=== PATIENT | female | born 1950 | race Caucasian/White ===

== ENCOUNTER → 2017-05-06 20:20 | Outpatient (CLI) | payer OTHER, SELFPAY | PROVIDERS: Family Provider Internal Medicine; PCP Internal Medicine; Visit Provider Internal Medicine | DX: G47.30 Sleep apnea, unspecified (principal); R06.89 Other abnormalities of breathing | CPT/HCPCS: 95810 ==

== ENCOUNTER → 2017-05-11 14:39 | Outpatient (CLI) | payer OTHER, SELFPAY ==
[2017-05-11] MEDS: DENOSUMAB 60 MG/ML ML SQ (14:52)
== END ==
PROVIDERS: Family Provider Internal Medicine; PCP Internal Medicine; Visit Provider Internal Medicine
DX: M81.0 Age-related osteoporosis without current pathological fracture (principal)
CPT/HCPCS: 96372

== ENCOUNTER → 2017-05-28 13:36 | Outpatient (CLI) | payer OTHER, SELFPAY ==
[2017-05-28 15:21] VITALS: BMI 26.0
== END ==
PROVIDERS: Family Provider Internal Medicine; PCP Internal Medicine; Visit Provider Internal Medicine
DX: G47.33 Obstructive sleep apnea (adult) (pediatric) (principal)
CPT/HCPCS: 98960; G0463

== ENCOUNTER → 2017-06-18 14:27 | Outpatient (CLI) | payer OTHER, SELFPAY | PROVIDERS: Family Provider Internal Medicine; PCP Internal Medicine; Visit Provider Internal Medicine | DX: Z46.89 Encounter for fitting and adjustment of other specified devices (principal) ==

== ENCOUNTER → 2017-06-22 17:30 | Outpatient (CLI) | payer OTHER, SELFPAY ==
[2017-05-28 15:21] VITALS: BMI 26.0
--- NOTE | 2017-06-22 16:37 | BI_ITS ---
MAMMOGRAPHY - BILATERAL SCREENING REASON FOR EXAM: Female, 66 years old. Routine annual screening examination. PERTINENT HISTORY: Non-contributory. TECHNIQUE: Digital bilateral breast lanette (3D mammographic acquisition) in the CC and MLO projections. 2-D mediolateral oblique (MLO) and craniocaudad (CC) views of both breasts were obtained. CAD: Full Field Digital Mammography with Computer Added Detection was performed. COMPARISON: Comparison is made with prior examination dated April 27, 2016 and March 20, 2015. FINDINGS: Breast Composition: The breasts are heterogeneously dense, which may obscure small masses. There are no dominant masses or suspicious calcifications. No other significant abnormalities are identified. There has been no significant change since the prior study. BI/SCREENING MAMM (CAD), BILAT IMPRESSION: Stable bilateral screening mammogram. Yearly follow-up mammogram recommended. (A) ASSESSMENT CATEGORY: BIRADS Category 1: Negative. A letter regarding these results will be sent to the patient by the facility within 30 days. Approximately 10% of breast cancers are not detected by mammography. A normal mammogram should not delay biopsy of a clinically suspicious abnormality. [id number] Electronically Signed: Win Vizcaino MD at 8:23 EDT Tel [phone], Service support ,
== END ==
PROVIDERS: Family Provider Internal Medicine; PCP Internal Medicine; Visit Provider Nurse Practitioner Women's Health
DX: Z12.31 Encounter for screening mammogram for malignant neoplasm of breast (principal)
CPT/HCPCS: 77063; 77067

== ENCOUNTER → 2017-06-29 08:26 | Outpatient (CLI) | payer OTHER, SELFPAY ==
[2017-05-28 15:21] VITALS: BMI 26.0
[2017-06-29 09:20] LABS: Absolute Lymphocyte Count 1.26 X10^3/ul (0.83-4.51); Absolute Neutrophil Count 3.2 X10^3/uL (2.0-7.7); Hematocrit 40.5 % (37-47); Lymphocyte # 1.26 X10^3/ul (4.0); Lymphocyte % 25.9 % (19-41); Mean Corp Hgb Conc 32.1 g/gl (32-36); Mean Corpuscular Hgb 27.3 pg (27.0-32.0); Mean Corpuscular Volume 85.1 fL (81-99); Mean Platelet Vol. 9.4 fl (6.2-12.0); Monocyte# 0.44 X10^3/uL; Monocyte% 9.1 % (0-10); Neutrophil # 3.16 X10^3/uL (2.7-7.7); Platelet Count 337 K/mm3 (150-450); RBC Distribution Width SD 40.4 fl (35.1-43.9); Red Blood Count 4.76 M/mm3 (4.2-5.4); White Blood Count 4.9 K/mm3 (4.4-11.0)
[2017-06-29 09:22] LABS: POSITIVE COUNT NO; POSITIVE DIFFERENTIAL NO; POSITIVE MORPHOLOGY NO
[2017-06-29 09:38] LABS: Hemoglobin A1c 5.2 % (4.2-6.3)
[2017-06-29 09:40] LABS: ALB/GLOB Ratio 1.1 RATIO (0.9-2.4); AST(SGOT) 22 U/L (15-37); Alanine Aminotransfer ALT/SGPT 28 U/L (13-56); Albumin, Serum 3.9 g/dL (3.2-5.0); Alkaline Phosphatase 73 U/L (45-117); Anion Gap 6 (5-15); BUN 17 mg/dL (7-18); BUN/Creat Ratio 22.2 RATIO (10-20); Calcium,Total 8.8 mg/dL (8.5-10.1); Chloride 101 mmol/L (98-107); Creatinine, Serum 0.77 mg/dL (0.55-1.02); EST Glomerular Filtration Rate 80 mL/min (>60); Est Glom Filt Rate - Afr Amer 97 mL/min (>60); Ferritin 18 ng/mL (8-252); Globulin 3.5 g/dL (2.2-4.2); Glucose 62 mg/dL (74-106); Iron 73 ug/dL (50-170); Iron Binding Capacity,Total 429 ug/dL (250-450); Potassium 4.5 mmol/L (3.5-5.1); Protein, Total 7.4 g/dL (6.4-8.2); Sodium Level 136 mmol/L (136-145); Thyroid Stim Hormone (TSH) 1.61 uIU/mL (0.358-3.74)
[2017-06-29 09:57] LABS: Microalbumin,Random Urine 5.3 mg/L (NO RANGE EST.); Microalbumin:Creatinine Ratio 17.3 mg/g CRE (<30 mg/g CRE)
== END ==
PROVIDERS: Family Provider Internal Medicine; PCP Internal Medicine; Visit Provider Internal Medicine
DX: E78.00 Pure hypercholesterolemia, unspecified (principal); D50.9 Iron deficiency anemia, unspecified; R73.02 Impaired glucose tolerance (oral)
CPT/HCPCS: 36415; 80053; 82043; 82570; 82728; 83036; 83540; 83550; 84443; 85025

== ENCOUNTER → 2017-10-07 08:12 | Outpatient (CLI) | payer OTHER, SELFPAY ==
[2017-05-28 15:21] VITALS: BMI 26.0
== END ==
PROVIDERS: Family Provider Internal Medicine; PCP Internal Medicine; Visit Provider Nurse Practitioner Family
DX: R19.7 Diarrhea, unspecified (principal)
CPT/HCPCS: 83630; 87177; 87209; 87506

== ENCOUNTER → 2017-10-15 16:38 | Outpatient (CLI) | payer OTHER, SELFPAY ==
[2017-05-28 15:21] VITALS: BMI 26.0
== END ==
PROVIDERS: Visit Provider Nurse Practitioner
DX: R19.7 Diarrhea, unspecified (principal)
CPT/HCPCS: 83630; 87493

== ENCOUNTER → 2017-10-19 07:57 | Outpatient (CLI) | payer OTHER, SELFPAY ==
[2017-05-28 15:21] VITALS: BMI 26.0
== END ==
PROVIDERS: Family Provider Internal Medicine; PCP Internal Medicine; Visit Provider Nurse Practitioner
DX: R09.89 Other specified symptoms and signs involving the circulatory and respiratory systems (principal)
CPT/HCPCS: 76775

== ENCOUNTER → 2017-11-01 14:40 | Outpatient (CLI) | payer OTHER, SELFPAY ==
[2017-05-28 15:21] VITALS: BMI 26.0
[2017-11-01 15:33] LABS: Hemoglobin A1c 5.4 % (4.2-6.3)
== END ==
PROVIDERS: Family Provider Internal Medicine; PCP Internal Medicine; Visit Provider Internal Medicine
DX: E78.00 Pure hypercholesterolemia, unspecified (principal); D50.9 Iron deficiency anemia, unspecified; R73.02 Impaired glucose tolerance (oral)
CPT/HCPCS: 36415; 83036

== ENCOUNTER → 2017-11-03 14:58 | Outpatient (CLI) | payer OTHER, SELFPAY ==
[2017-05-28 15:21] VITALS: BMI 26.0
== END ==
PROVIDERS: Family Provider Internal Medicine; PCP Internal Medicine; Visit Provider Internal Medicine
DX: M81.0 Age-related osteoporosis without current pathological fracture (principal)

== ENCOUNTER → 2017-11-15 15:36 | Outpatient (CLI) | payer OTHER, SELFPAY ==
[2017-05-28 15:21] VITALS: BMI 26.0
[2017-11-15 15:51] VITALS: BP 139/84; PULSE 70; RESP 16; TEMP 37.2; O2SAT 98
[2017-11-15] MEDS: DENOSUMAB 60 MG/ML ML SQ (15:57)
== END ==
PROVIDERS: Family Provider Internal Medicine; PCP Internal Medicine; Visit Provider Internal Medicine
DX: M81.0 Age-related osteoporosis without current pathological fracture (principal)
CPT/HCPCS: 96372; J0897

== ENCOUNTER → 2018-02-11 14:23 | Outpatient (CLI) | payer OTHER, SELFPAY ==
[2017-05-28 15:21] VITALS: BMI 26.0
[2017-10-20 09:33] VITALS: BMI 28.1
--- NOTE | 2018-02-11 14:27 | RAD_ITS ---
STUDY: X-RAY - ABDOMEN/PELVIS REASON FOR EXAM: Female, 67 years old. Bloating sensation, diarrhea, abdominal discomfort TECHNIQUE: AP supine and upright views of the abdomen and pelvis. COMPARISON: None. FINDINGS: Normal visualized lung bases. No dilated loops of small bowel. There is gaseous distention and fecal retention of the colon, right more than left. Surgical clips project over the right abdomen. There is no demonstrated free abdominal air. The visualized liver, spleen and kidneys are grossly normal in size and morphology. Normal soft tissue structures. Mild scoliosis towards the left of the lumbar spine. Mild degenerative narrowing of the bilateral hips. RAD/Abd Inc Decub and/or Erect IMPRESSION: 1. Nonobstructive bowel gas pattern. 2. Moderate fecal retention. Electronically Signed: Juancarlos Polo MD at 0:39 EST , Service support ,
== END ==
PROVIDERS: Family Provider Internal Medicine; PCP Internal Medicine; Referring Provider Nurse Practitioner; Visit Provider Nurse Practitioner
DX: R19.7 Diarrhea, unspecified (principal)
CPT/HCPCS: 74019

== ENCOUNTER → 2018-02-18 07:55 | Outpatient (CLI) | payer OTHER, SELFPAY ==
[2017-05-28 15:21] VITALS: BMI 26.0
--- NOTE | 2018-02-18 07:57 | US_ITS ---
STUDY: ABDOMINAL ULTRASOUND REASON FOR EXAM: Female, 67 years old. Bloating and diarrhea. Pain. History of cholecystectomy in 2011. TECHNIQUE: Multiple ultrasound images were obtained of the abdomen. TECHNICAL QUALITY: Good technical quality. COMPARISON: None. FINDINGS: Liver: The liver measures 14.8 cm. . There is normal echogenicity of the liver. The bile ducts are within normal limits. There is hepatic color flow. The direction of portal flow is hepatopetal. There is no demonstrated mass lesion. Portal vein measurement: Gallbladder: Patient is status post cholecystectomy. Common Bile Duct (C.B.D.): The common bile duct measures 4.6 mm mm. Pancreas: Normal size of the head, body and tail of the pancreas. There is normal echogenicity of the pancreas. There is no demonstrated pancreatic mass or cyst. Spleen: Normal size of the spleen. The spleen measures 10.4 cm cm. Right Kidney: Normal size of the right kidney. The right kidney measures 10.9 x 5.2 x 3.9 cm. cm. Normal renal cortex. The right cortex measures 1.3 cm cm. There is no demonstrated renal mass or cyst. There is no right hydronephrosis. Left Kidney: Normal size of the left kidney. The left kidney measures 11.5 x 5.5 x 4.9 cm. cm. Normal renal cortex. The left cortex measures 1.4 cm. cm. There is no demonstrated renal mass or cyst. There is no left hydronephrosis. Aorta: There is mild atherosclerotic plaque in the mid to distal abdominal aorta. Aorta measures 1.7 cm throughout its visualized course. I.V.C.: The IVC is patent. There is no ascites. US/Abdomen Complete IMPRESSION: Normal abdominal ultrasound examination. Electronically Signed: Jovani Christ, at 8:49 EST Tel , Service support ,
--- OUTSIDE RECORDS SUMMARY | 2018-04-05 19:29 | XMS RPT_ITS | Continuity of Care Document ---
:1950 Author Organization [facility] Address [address] [place] [address] Phone Care Team Providers Name Role Phone Shila Dinh DO Unavailable Smiley DUBON James Nkechi Unavailable Dr. Brennon Jovel MD Unavailable Jourdan Astorga MD Unavailable Nestor Diaz Unavailable Yari Ayon MD Unavailable Amy Kearney Unavailable Unavailable NAVIN Kearney Christina Unavailable Dr. Micah Redd Unavailable JAMES Scott Unavailable Unavailable Sayra Adler LPN Unavailable Unavailable Penny Shukla CNP Unavailable Unavailable Unavailable Problems Name Dates Details Abdominal bloating (R14.0, 787.3) Comments: recommend probiiotics, stress modulation -- ibs? Status: Active Abdominal bruit (R09.89, 785.9) Status: Active Abnormal glucose tolerance test (R73.02, 790.22) Status: Active Acute pharyngitis (J02.9, 462) Status: Active Annual physical exam (Z00.00, V70.0) Status: Active BMI 27.0-27.9,adult (Z68.27, V85.23) Status: Active BMI 28.0-28.9,adult (Z68.28, V85.24) Status: Active Breast cancer screening (Z12.39, V76.10) Status: Active BRONCHITIS, NOT SPECIFIED ACUTE OR CHRONIC (490.) (J40, 490) Status: Active Chronic GERD (K21.9, 530.81) Status: Active Cough (R05, 786.2) Status: Active Deliveries (Parity) Comments: Term, 2 Status: Active Depression (F32.9, 311) Comments: stable Status: Active Diarrhea in adult patient (R19.7, 787.91) Status: Active Diarrhea, unspecified type (R19.7, 787.91) Status: Active Encounter for annual health examination (Z00.00, V70.0) Status: Active Encounter for immunization (Z23, V03.89) Status: Active Encounter for routine adult medical examination (Z00.00, V70.0) Status: Active Family history of diabetes mellitus (Z83.3, V18.0) Status: Active Foot fracture, right (S92.901A, 825.20) Status: Active Gasping for breath (R06.89, 786.09) Comments: while sleeping Status: Active Headache (R51, 784.0) Comments: if turns out to be all muscle tesnion -- then need to be doing more intervention to fix muscle tension - recommend massage and palliative care physician Status: Active Hematuria (R31.9, 599.70) Status: Active History of IBS (Z87.19, V12.79) Status: Active Hypercholesterolemia (E78.00, 272.0) Status: Active Hypertension (I10, 401.9) Comments: ? FREDY ? stress ? salt ? new essential htn need EKG to see if LVH needs sleep study would incresae prozac see if helps. right now mild elevation so can try things first. low salt diet. addstress cut back caffiene Status: Active Immunization Hx: DTAP 07/16/08 (Renamed from DTAP 07/16/08) Status: Active INJURY, SUPERF, FOOT/TOE NEC W/O INFECTION (917.8) Status: Active Iron deficiency anemia, unspecified (D50.9, 280.9) Status: Active Migraine (G43.909, 346.80) Comments: and any correlatation with ct brain cause or effect ? Status: Active Non-smoker (Z78.9, V49.89) Status: Active Obsessive-compulsive disorder (F42.9, 300.3) Comments: stable Status: Active FREDY (obstructive sleep apnea) (G47.33, 327.23) Status: Active FREDY (obstructive sleep apnea) (G47.33, 327.23) Status: Active Osteoporosis (M81.0, 733.00) Comments: dexa 02/20 -- on prolia, last one october Status: Active Other headache syndrome (G44.89, 339.89) Comments: will see if goes away when treat sleep apnea Status: Active Other specified menopausal and postmenopausal disorders (N95.8, 627.8) Status: Active Pain in unspecified joint (M25.50, 719.40) Status: Active Physical exam for work or camp (Renamed from School physical exam) (Z02.0, V70.5) Status: Active Pregnancies () Comments: 2 Status: Active RLS (restless legs syndrome) (G25.81, 333.94) Status: Active Rosacea (L71.9, 695.3) Status: Active Sleep apnea, unspecified type (G47.30, 780.57) Status: Active Small vessel disease, cerebrovascular (I67.9, 437.9) Status: Active Unspecified Diagnosis Status: Active Unspecified Diagnosis Status: Active Urinary urgency (R39.15, 788.63) Comments: excessive caff?, prolapse?-- pt can discuss with crowsarmad or her solar energy technician Status: Active Wheezing (R06.2, 786.07) Status: Active Medications Name Dates Details CINNAMON, 500MG (Oral Capsule) 2 qd for 0 days Refills: 0 Ordered:21-Feb-2009 Shari Scott LPNActive Cyclobenzaprine HCl 10 MG Oral Tablet 1 (one) Tablet qd/prn for 0 days Quantity: 30 {Tablet} Refills: 1 Ordered:28-Oct-2017 Matthew Dinh DO, DO, Kathleen Start : 28-Oct-2017 Active Comments:thirty FERROUS SULFATE, 325 (65 Fe)MG (Oral Tablet Delayed Release) [address] Tablet DR qd for 0 days Quantity: 30 {Tablet_DR} Refills: 9 Ordered:17-Feb-2013 Shari Scott LPN Start : 17-Feb-2013 Active Mirapex 0.125 MG Oral Tablet 1 (one) Tablet qhs for one week may increase to 2 tabs qhs if needed for 0 days Quantity: 60 {Tablet} Refills: 1 Ordered:01-Dec-2017 Matthew Dinh DO, DO, Kathleen Start : 01-Dec-2017 Active NIACIN ER, 500MG (Oral Tablet Extended Release) 2 (two) Tablet ER qd for 0 days Quantity: 60 {Tablet} Refills: 3 Ordered:23-May-2015 Radha Mcdowell MD Start : 23-May-2015 Active Comments:1000mg XR OTC 05/23/15 jradha Omeprazole 20 MG Oral Tablet Delayed Release [address] qd for 0 days Quantity: 90 {Tablet} Refills: 3 Ordered:05-Jul-2017 Matthew Dinh DO, DO, Kathleen Start : 05-Jul-2017 Active Premarin 0.625 MG/GM Vaginal Cream one application three times a week (0.625 MG/GM) Start : 2014 Active Comments:geri villela PROAIR HFA, 108 (90 Base)MCG/ACT (Inhalation Aerosol Solution) 2 (two) Puff Puff tid for 0 days Quantity: 1 {Inhaler} Refills: 0 Ordered:02-Jul-2014 Shari Scott LPN Start : 02-Jul-2014 Active Prolia 60 MG/ML Subcutaneous Solution 1 (one) Solution q 6mo for 180 days Quantity: 1 {Container} Refills: 1 Ordered:28-Apr-2017 Matthew Dinh DO, DO, Kathleen Start : 28-Apr-2017 Active PROzac 20 MG Oral Capsule 1 Capsule qd for 90 days Quantity: 90 {Capsule} Refills: 3 Ordered:14-Jun-2017 Matthew Dinh DO, DO, Kathleen Start : 14-Jun-2017 Active Relpax 20 MG Oral Tablet 1 Tablet qd prn for 0 days Quantity: 12 {Tablet} Refills: 5 Ordered:17-Jan-2018 Matthew Dinh DO, DO, Kathleen Start : 17-Jan-2018 Active VITAMIN D, 1000UNIT (Oral Capsule) 1 Daily for 0 days Refills: 0 Ordered:26-Sep-2009 Mast RN, Vineet ASPIRIN EC, 81MG (Oral Tablet Delayed Release) 1 (one) Tablet DR Tablet DR qd for 0 days Quantity: 30 {Tablet} Refills: 0 Ordered:22-Mar-2014 Shari Scott LPN Start : 06-Sep-2013 End : 22-Mar-2014 Inactive ASPIRIN LOW DOSE, 81MG (Oral Tablet) 1 Tablet QD for 0 days Refills: 0 Ordered:23-May-2015 Cassidy Arevalo Start : 19-Oct-2008 End : 23-May-2015 Inactive Calcium 500 MG Oral Tablet 1 (one) Tablet bid for 30 days Quantity: 60 {Tablet} Refills: 0 Ordered:15-Oct-2017 Matthew Dinh DO, DO, Kathleen Start : 15-Oct-2017 End : 14-Nov-2017 Inactive Cefdinir 300 MG Oral Capsule 1 (one) Capsule bid for 10 days Quantity: 20 {Capsule} Refills: 0 Ordered:23-Sep-2015 Penny Shukla CNP Start : 23-Sep-2015 End : 03-Oct-2015 Inactive CHERATUSSIN AC, 100-10MG/5ML (Oral Solution) 1-2 Teaspoon qhs prn for 0 days Quantity: 6 {Ounce} Refills: 0 Ordered:03-Aug-2014 Shari Scott LPN Start : 02-Jul-2014 End : 03-Aug-2014 Inactive Cipro 500 MG Oral Tablet 1 (one) Tablet bid for 7 days Quantity: 14 {Tablet} Refills: 0 Ordered:15-Oct-2017 Penny Shukla CNP Start : 15-Oct-2017 End : 22-Oct-2017 Inactive Diflucan 150 MG Oral Tablet 1 (one) Tablet bid for 7 days Quantity: 14 {Tablet} Refills: 0 Ordered:15-Oct-2017 Penny Shukla CNP Start : 15-Oct-2017 End : 22-Oct-2017 Inactive Doxycycline Hyclate 100 MG Oral Capsule 1 (one) Capsule bid for 28 days Quantity: 56 {Capsule} Refills: 0 Ordered:27-Sep-2015 Penny Shukla CNP Start : 27-Sep-2015 End : 25-Oct-2015 Inactive DOXYCYCLINE HYCLATE, 100MG (Oral Tablet) 1 (one) Tablet bid for 10 days Quantity: 20 {Tablet} Refills: 0 Ordered:06-Mar-2010 Penny Shukla CNP Start : 04-Dec-2009 End : 14-Dec-2009 Inactive ESTROVEN (Oral Tablet) Tablet for 0 days Refills: 0 Ordered:04-Mar-2006 Shari Scott LPN Start : 04-Mar-2006 End : 16-Jul-2008 Inactive FINACEA, 15% (External Gel) apply to face Gel Twice daily for 0 days Quantity: 30 {Gel} Refills: 2 Ordered:17-Feb-2013 Shari Scott LPN Start : 16-Jul-2008 End : 17-Feb-2013 Inactive GLUCOSAMINE CHONDR 500 COMPLEX (Oral Capsule) Not sure Not sure for 0 days Refills: 0 Ordered:26-Mar-2008 Shari Scott LPN End : 26-Mar-2008 Inactive IRON, 325 (65 Fe)MG (Oral Tablet) 1 Tablet qd for 30 days Refills: 0 Ordered:22-Mar-2014 Shari Scott LPN Start : 17-Feb-2013 End : 22-Mar-2014 Inactive LIPITOR, 10MG (Oral Tablet) 1 (one) Tablet Tablet qd for 0 days Quantity: 30 {Tablet} Refills: 3 Ordered:22-Mar-2014 Shari Scott LPN Start : 06-Sep-2013 End : 22-Mar-2014 Inactive METAXALONE, 800MG (Oral Tablet) 1 Tablet tid prn for 0 days Quantity: 30 {Tablet} Refills: 0 Ordered:27-Mar-2013 Shavonne Wagner LPN Start : 17-Feb-2013 End : 27-Mar-2013 Inactive PREDNISONE, 10MG (Oral Tablet) uad Tablet 2 for 3 days, 1 for 3 days, then 1/2 for 3 days for 0 days Refills: 0 Ordered:17-Feb-2013 Shari Scott LPN Start : 15-Nov-2012 End : 17-Feb-2013 Inactive PRILOSEC OTC, 20MG (Oral Tablet Delayed Release) Not sure Tablet DR Not sure for 0 days Quantity: 90 {Tablet_DR} Refills: 3 Ordered:17-Feb-2013 Shari Scott LPN Start : 01-Sep-2012 End : 17-Feb-2013 Inactive PROVENTIL HFA, 108 (90 Base)MCG/ACT (Inhalation Aerosol Solution) 2 (two) Puff(s) bid for 0 days Quantity: 1 {Aerosol_Soln} Refills: 0 Ordered:07-Apr-2010 Shari Scott LPN Start : 04-Dec-2009 End : 07-Apr-2010 Inactive SOY, 40MG (PO Tab) Not sure Not sure for 0 days Refills: 0 Ordered:26-Mar-2008 Shari Scott LPN End : 26-Mar-2008 Inactive ZITHROMAX Z-ABISAI, 250MG (Oral Tablet) 1 (one) Tablet TAD for 0 days Quantity: 1 {Package} Refills: 0 Ordered:03-Aug-2014 Shari Scott LPN Start : 02-Jul-2014 End : 03-Aug-2014 Inactive FISH OIL (Oil) for 0 days Refills: 0 Ordered:20-Mar-2016 VICTORIA Chavarria End : 20-Mar-2016 Discontinued Comments:This order discontinued per [facility]. FLEXERIL, 10MG (Oral Tablet) 1 (one) Tablet Twice daily prn for 0 days Quantity: 30 {Tablet} Refills: 2 Ordered:07-Jan-2012 Shavonne Wagner LPN Start : 26-Sep-2009 End : 27-Mar-2013 Discontinued Comments:This order discontinued per [facility]. MULTIVITAMIN (Oral Liquid) for 0 days Refills: 0 Ordered:26-Sep-2009 Mandi Rowe RN End : 26-Sep-2009 Discontinued Comments:This order discontinued per [facility]. MULTIVITAMIN (PO Chew Tab) 1 Daily for 0 days Refills: 0 Ordered:20-Mar-2016 VICTORIA Chavarria End : 20-Mar-2016 Discontinued Comments:This order discontinued per [facility]. PROZAC, 10MG (Oral Tablet) 1 (one) Tablet BID for 0 days Quantity: 60 {Tablet} Refills: 5 Ordered:26-Sep-2009 Shari Scott LPN Start : 26-Sep-2009 End : 07-Apr-2010 Discontinued Comments:This order discontinued per [facility]. VITAMIN D-400, 400UNIT 1 qd for 0 days Refills: 0 Ordered:26-Sep-2009 Mandi Rowe RN End : 26-Sep-2009 Discontinued Comments:This order discontinued per [facility]. ZOLOFT, 50MG (Oral Tablet) 1.5 Tablet QD for 0 days Quantity: 120 {Tablet} Refills: 3 Ordered:02-Aug-2007 Matthew Dinh DO, DO, Kathleen Start : 02-Aug-2007 End : 02-Aug-2007 Discontinued Allergies and Adverse Reactions Name Dates Details No Known Drug Allergies (Allergy) Status: Active Past Medical History Name Dates Details Abdominal pain (R10.9, 789.00) Status: Inactive as of 14-Feb-2016 Abdominal pain (R10.9, 789.00) Status: Inactive as of 02-May-2012 Abdominal pain, colicky (R10.83, 789.7) Status: Resolved as of 28-Oct-2017 Anemia, unspecified (D64.9, 285.9) Status: Inactive as of 14-Feb-2016 Arthralgia of right hand (M25.541, 719.44) Comments: after bite from insect 8- 10 weeks ago will rule out tenosinovitis vs septic joint vs osteo vs cellulitis sending ortho Status: Inactive as of 22-Feb-2017 Benign essential hypertension (I10, 401.1) 07-Apr-2010 Status: Resolved as of 07-Apr-2010 BMI 25.0-25.9,adult (Z68.25, V85.21) Status: Resolved as of 20-Oct-2017 BMI 26.0-26.9,adult (Z68.26, V85.22) Status: Resolved as of 20-Oct-2017 Breast pain in female (N64.4, 611.71) Status: Inactive as of 14-Feb-2016 Cellulitis of hand (L03.119, 682.4) Status: Inactive as of 14-Feb-2016 Chest pain (R07.9, 786.50) Status: Inactive as of 14-Feb-2016 Flu-like symptoms (R68.89, 780.99) Status: Inactive as of 14-Feb-2016 GERD (gastroesophageal reflux disease) (K21.9, 530.81) Status: Inactive as of 14-Feb-2016 Hyperlipidemia (E78.5, 272.4) Status: Inactive as of 14-Feb-2016 Inflamed skin tag (L91.8, 701.9) Status: Inactive as of 02-May-2012 Irritable bowel syndrome (K58.9, 564.1) Comments: stable Status: Inactive as of 14-Feb-2016 Low back pain (M54.5, 724.2) Status: Inactive as of 02-May-2012 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 will send to Infectious disease Status: Inactive as of 14-Feb-2016 Nausea (R11.0, 787.02) Status: Resolved as of 02-May-2012 Need for prophylactic vaccination and inoculation against influenza (Z23, V04.81) Status: Inactive as of 16-Jul-2008 Neoplasm of uncertain behavior of skin (D48.5, 238.2) Comments: irritated flat moles but keratanized surfaces -- irritated from scratching Status: Inactive as of 02-May-2012 Poison freddy (L23.7, 692.6) Status: Inactive as of 17-Feb-2013 Positive Lyme disease serology (R76.8, 795.79) Status: Inactive as of 14-Feb-2016 Screening mammogram, encounter for (Z12.31, V76.12) Status: Resolved as of 06-May-2017 Skin lesion of face (L98.9, 709.9) Status: Inactive as of 22-Feb-2017 Stress at work (Z56.6, V62.1) Comments: ? contribute to HTN. Status: Inactive as of 14-Feb-2016 Tinnitus, unspecified laterality (H93.19, 388.30) Comments: pulsatile--new sx Status: Inactive as of 11-Sep-2008 Procedures Procedure Dates Details Cholecystectomy Completed Comments: 02/22/12 Date Value Details 20-Oct-2017 Hydrotherapist Office Visit Report Result: Comments: See Note; NOTES: [facility] [address] [place] [address] OFFICE VISIT Date of Service: 10/20/17 MR#: [id number] Acct: [id number] Name: RAINA YAO Rep #: [id number] : 1950 Provider: SHANE Villela Age/Sex: 67/F Location: [facility] [place] Status: Signed Intake Vital Signs10/20/17 Height 5 ft 8 in 10/20/17 Weight: 185 lb 2 oz 10/20/17 Body Mass Index (BMI) 28.1 10/20/17 Blood Pressure 134/82 Intake Visit Reasons: ANNUAL 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 Required: No Is patient in pain?: No Allergies No Known Allergies Allergy (Verified 10/20/17 09:28) Me dications Ferrous Sulfate 325 mg PO QODAY 06/29/14 [History Confirmed 10/20/17] Niacin [Niacin ER] 1,000 mg PO DAILY 06/29/14 [History Confirmed 10/20/17] Omeprazole [Prilosec] 20 mg PO DAILY 06/29/14 [History Confirmed 10/20/17] calcium carbonate 500 mg calcium (1,250 mg) tablet 500 mg PO QDAY tab 07/19/17 [History Confirmed 10/20/17] cholecalciferol (vitamin D3) 1,000 unit capsule 1,000 unit PO QDA Y 07/19/17 [History Confirmed 10/20/17] denosumab 60 mg/mL subcutaneous syringe 60 mg SC [id number] 07/19/17 [History Confirmed 10/20/17] fluoxetine 10 mg capsule 20 mg PO DAILY cap 07/19/17 [History Conf irmed 10/20/17] ciprofloxacin 500 mg tablet 500 mg PO BID 10/20/17 [History Confirmed 10/20/17] conjugated estrogens 0.625 mg/gram vaginal cream See Label Instructions TOPICAL .COMPLEX 10/20/17 [History Confirmed 10/20/17] eletriptan 20 mg tablet 20 mg PO ONCE 10/20/17 [History Confirmed 10/20/17] Is last menstrual period known: No Post menopausal: Yes Patient : No : No PFSH Me dical History Sinusitis, acute (Acute) Abdominal bloating (Acute) Acute pharyngitis (Acute) Bronchitis (Acute) Cough (Acute) Foot fracture, right (Acute) Gasping for breath (Acute) Headache (Acute) Hematuria (Acute) Pain in unspecified joint (Acute) Urinary urgency (Acute) Wheezing (Acute) Depression (Chronic) GERD (gastroesophageal reflux disease) (Chr onic) HTN (hypertension) (Chronic) Hypercholesterolemia (Chronic) Iron deficiency anemia (Chronic) Migraine (Chronic) OCD (obsessive compulsive disorder) (Chronic) FREDY (obstructive sleep apnea) (Chronic ) Osteoporosis (Chronic) RLS (restless legs syndrome) (Chronic) Rosacea (Chronic) Small vessel disease, cerebrovascular (Chronic) Surgical History Hist ory of appendectomy (Resolved) History of cholecystectomy (Resolved) Family History Father Diabetes Mother Rheumatoid arthritis Macular degeneration Bro ther Diabetes Brother Diabetes Social History household members: spouse housing: house 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 DatName GA/WeeksOutcome [facility] LocaProviderFOB e ht en tn Unknown 1977 [place] kael Unknown 1980 Shama as HPI ANNUAL: Details: RAINA YAO is a 67 year old who presents for annual exam. Last:2016 History of abnormal PAP: no Last mammogram: 06/2017 History of abnormal mammogram: no Colon cancer screenin BMD 02/2016 osteope angie and on prolia ROS Const Constitutional: Denies fatigue, weight gain or weight loss Cardio Card: Denies chest pain Resp Resp: Denies cough or shortness of breath with activity GI GI: Denies abdomi nal pain, constipation, change in stools, vomiting or bloating : Reports as per HPI; denies urinary frequency, pelvic pain, urinary urgency, vaginal discharge, vaginal itching, urinary incontinence or difficulty urinating Exam Const General: cooperative, healthy appearing, no acute distress, well developed Orientation: alert, oriented to person, oriented to place HENPR Head: normal to inspectio n Neck Neck: normal visual inspection Thyroid: thyroid normal Lymphatic: no lymphadenopathy noted Chest Breast inspection: normal inspection of the breasts, normal inspection of the axillae Breast palpa tion: normal palpation of the breasts, normal palpation of the axillae, no axillary lymphadenopathy Resp Effort AND Inspection: normal respiratory effort GI Palpation: soft, nontender, no masses Rectal Exam: mass, deferred External Female Exam: normal external appearance, normal appearance of the urethra Urethra: normal appearance of the urethra, normal palpation Speculum Exam - Vagina: normal vagi nal discharge, atrophic vaginal mucosa Speculum Exam - Cervix: normal appearance of the cervix Bimanual Exam- Vagina AND Uterus: normal bimanual exam, uterine size normal, uterine shape normal, uterus n on-tender Bimanual Exam- Adnexa, other: normal adnexae, no adnexal masses, adnexae non-tender, pelvic support normal Pelvic Support: normal Neuro General: alert, oriented x3 Psych Affect: normal affect Assessment AND Plan Problems 1. Encounter for gynecological examination without abnormal finding Z01.419 2. Age-related osteoporosis without current pathological fracture M81.0 Plan Completed breast and pelvic exam Reviewed diet and exercise Pap NA Mammogram recent Contraception NA Colonoscopy up to date Bone density ordered for Feb 2018 RTO 1 year, prn with problems Geri Villela HARDWARE INSTALLATION COORDINATOR Orders Orde rs: Medications New: Coding Level of Care Code Off vis,est,prev 65+yrs Diagnoses Encounter for gynecological examination without abnormal finding Z01.419 Gynecological examination findings: abnormal findings ABSENT Age-related osteoporosis without current pathological fracture M81.0 Osteoporosis type: age-related Presence of current pathological fracture: without current pathological fracture 0 10/20/17 1221 <Electronically signed by Geri WILKERSON> Date Geri WILKERSON Cosigner Signature: Date (if applicable) CC: 19-Oct-2017 Aorta Result: Comments: See Note; NOTES: [facility] Imaging Services [address] [place] [address] Aorta MR#: [id number] Acct: [id number] Name: TORIBIO YAO Rep #: [id number] : [birth year] F 67 From: Win Vizcaino MD PCP: Shila Dinh DO Status: REG CLI Study: Aorta Date of Exam: 10/19/17 Exam# [id number] Ordering Dr: Penny Shukla PROCEDURES: ULTRASOUND AORTA REASON FOR EXAM : Female, 67 years old. Screening for abdominal aortic aneurysm. TECHNIQUE: Ultrasound evaluation of the aorta was performed with real-time and static betancourt-scale imaging. COMPARISON: None. FINDINGS: There is mild atherosclerotic plaque formation of the abdominal aorta. Aorta measures: Proximal 2.3 cm. Middle 1.9 cm. Distal 1.4 cm. Aorta measure transversely: Pro ximal 1.5 cm. Middle 1.7 cm. Distal 1.3 cm. Right iliac artery measures: 1.1 cm. Right iliac artery measure transversely: 0.9 cm. Left iliac artery measures: 0.9 cm. Left iliac artery measure transver sely: 0.8 cm. There is no demonstrated aneurysm.. US/Aorta IMPRESSION: Minimal calcific plaque. No evidence of aneurysmal dilatation. Sheree yanet Signed: Win Vizcaino MD at 9:34 EDT Tel [phone], Service support , CC: Penny Shukla FIELD ARTILLERY CANNONEER; Shila Dinh DO Material Requirements Planning Manager: Signed 18-Oct-2017 Pulmonary Visit Report Result: Comments: See Note; NOTES: [facility] [address] [place] [address] OFFICE VISIT Date of Service: 10/18/17 MR#: [id number] Acct: [id number] Name: TORIBIO BALBUENA Rep #: [id number] : 1950 Provider: Donald Lane MD Age/Sex: 67/F Location: [facility] [place].[facility] Status: Signed Assessment AND Plan Problems 1. FREDY (obstructive sleep apnea) G47.33 2. RLS (restle ss legs syndrome) G25.81 3. Over weight E66.3 Plan Patient appears to be doing well on the current AutoSet setting. Median pressure of 7 with a peak of 12 indicates that the current range is appropriat e. Did stress to the patient the role of weight loss and the overall disease plan of care. Patient is reporting subjective improvement after initiation of Mirapex therapy. This can be continued. Patient states that she has a plan for weight loss including dietary modification and increased walking. Signs and symptoms of progression of FREDY were reviewed in detail and patient voiced understanding. Cont inue AutoSet with current interface. Encourage weight loss. Plan Detail Follow Up 1 Year ([facility]) HPI 3 M FU: Chief Complaint: Follow-up sleep apnea Details: Patient is a 67-year-old female, currently in the care of Dr. Dinh, who presents for evaluation secondary to recent initiation of AutoSet therapy. Since last visit, patient denies any ER visits, hospitalizations or prednisone burst . Patient is currently on no inhalers. Patient has been using Mirapex on a nightly basis and reports subjective improvement in overall condition. Overall, patient feels that she is improved following i nitiation of Mirapex therapy. Patient did have to be transitioned from a nasal interface to nasal pillows secondary to comfort. Patient states that she typically will go to bed between 830 and 9:00. Reyna robison does read a book prior to going to sleep and then falls asleep without issue. Patient denies taking any naps during the day. There is no pain at the interface site, epistaxis or sinus congestion re ported. Patient does report the recent onset of diarrhea that she associates with eating fast food. Patient has been placed on antibiotics and antifungal with some improvement in overall condition. Reyna robison did report that she checks her weight routinely, but refused to have weight checked at this office appointment. Documentation personally reviewed with the patient Compliance report (September 2017): C ompliant 100% of days for an average of 7 hours 22 minutes on AutoSet with a residual AHI of 2.4. Medium pressure of 7.2 noted. Leak was well controlled. Intake Vital Signs10/18/17 Height 5 ft 8 in Blood Pressure 144/79 10/18/17 Blood Pressure Location Rt brachial 10/18/17 Blood Pressure Position Sitting 10/18/17 Respiratory Rate 18 Intake Visit Reasons: 3 M FU 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 Required: No DME Vendor: [employer] Accompanied by: Self Is patient in pain?: No Allergies No Known Allergies Allergy (Verified 10/18/17 11:14) Medications Ferrous Sulfate 325 mg PO QODAY 06/29/14 [History Confirme d 10/18/17] Niacin [Niacin ER] 1,000 mg PO DAILY 06/29/14 [History Confirmed 10/18/17] Omeprazole [Prilosec] 20 mg PO DAILY 06/29/14 [History Confirmed 10/18/17] calcium carbonate 500 mg calcium (1,250 mg) tablet 500 mg PO QDAY tab 07/19/17 [History Confirmed 10/18/17] cholecalciferol (vitamin D3) 1,000 unit capsule 1,000 unit PO QDAY 07/19/17 [History Confirmed 10/18/17] cinnamon bark 500 mg capsule 1,000 mg PO QDAY cap 07/19/17 [History Confirmed 10/18/17] denosumab 60 mg/mL subcutaneous syringe 60 mg SC [id number] 07/19/17 [History Confirmed 10/18/17] fluoxetine 10 mg capsule 20 mg PO DAILY cap [History Confirmed 10/18/17] loperamide 2 mg capsule 2 mg PO Q1-4H PRN #20 cap 10/05/17 [Rx Confirmed 10/18/17] ondansetron HCl 4 mg tablet 4 mg PO BID- TID PRN #20 tab 10/05/17 [Rx Confirmed 10/18] PFSH Medical History Sinusitis, acute (Acute) Abdominal bloating (Acute) Acute pharyngitis (Acute) Bronchitis (Acute) Cough (Acute) Foot fracture, right (Acute) Gasping for breath (Acute) Headache (Acute) Hematuria (Acute) Pain in unspecified joint (Acute) Urinary urgency (Acute) Wheezing (Acute) Depression (Chronic) GERD (gastroesophageal reflux disease) (Chronic) HTN (hypertension) (Chronic) Hypercholesterolemia (Chronic) Iron deficiency anemia (Chronic) Migraine (Chronic) OCD (obsessive compulsive disorder) (Chronic) FREDY (obstructive sleep a pnea) (Chronic) Osteoporosis (Chronic) RLS (restless legs syndrome) (Chronic) Rosacea (Chronic) Small vessel disease, cerebrovascular (Chronic) Surgical History History of appendectomy (Resolved) History of cholecystectomy (Resolved) Family History Father Diabetes Mother Rheumatoid arthritis Macular dege neration Brother Diabetes Brother Diabetes Social History household members: spouse housing: house 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 pets and animals: Yes pets and animals: dog(s) Smoking Status: Never smoker alcohol intake: never substance use type: does not use Review of Systems Const CONSTITUTIONAL: Positive fatigue; negative anorexia, body ache, chills, daytime sleepiness, fev er(s), night sweats, oral thrush, stops breathing during sleep, weight loss, sleeping in chair, weight loss, weight gain, frequent colds, seasonal allergies, other, orthopnea or headache(s) EETM Ear Nos e Throat Mouth: Positive hearing normal and sore throat; negative hard of hearing, hoarseness, dry mouth in morning, change in vision, itchy eyes, eye pain, swallowing Difficulty, ear pain, nose bleed, headache(s), mouth pain, nasal congestion, nasal discharge, post nasal drip, sinus pain, sinus pressure or other Cardio Cardiovascular: Negative chest pain, chest pain at rest, chest pain with activity, irregular heart rhythm, edema, palpitations, murmur, other or shortness of breath when lying down Resp Respiratory: Positive as per HPI; negative shortness of breath, pain with cough, wheezing, chest c ongestion, cough, chest tightness, pain on inspiration, inhalers, increase use of rescue inhalers, snoring, apnea or other Gastro Gastrointestional: Positive loose stool; negative bloody stools, change in appetite, difficulty swallowing, reflux, hematemesis, melena stool, constipation or other Genitourinary: Positive nocturia; negative blood in urine, pain with urination or other Musc Musculoskelet al: Negative body pain, back pain, neck pain or other Skin/Breast Skin/Breast: Negative dry skin, itching, rash, unusual bruising, breast lump or other Neuro Neurological: Negative restless legs, confus ion, weakness or other Psych Psychocological: Negative abnormal sleep pattern, anxiety, thoughts of hurting self/others, hopelessness or other Lymph Lymphatic: Negative easy bleeding, easy bruising, swo llen lymph nodes or other Exam Const Constitutional: Positive conversant, cooperative, in no acute respiratory distress, healthy appearing, well developed, well nourished, good hygiene and obese; nega tive wearing supplemental oxygen, appears older than stated age, frail appearing or smells of smoke Head Head: Positive normocephalic and atraumatic; negative cyanosis of lips/distal nose, microcephalic or macrocephalic Eyes Eye: Positive clear conjunctiva; negative nystagmus or scleral abnormality Ears Ear: Positive hearing normal and external ears normal; negative hard of hearing Nose Nose: Positive external nose normal, septum normal and no nasal discharge; negative epistaxis or nasal polyp Mouth Mouth: Positive oral mucosae normal and crowded posterior oropharynx; negative post nasal drip, malod orous breath, no lesions or oral thrush present Mallampati Score: III: Mallampati Score Neck Neck: Positive normal visual inspection, thick neck, full ROM and trachea midline; negative lymphadenopathy o r JVD Chest Wall Chest: Positive normal inspection of the chest; negative increased A/P diameter, symmetric chest movement, crepitus or tenderness Resp lung sounds: Positive clear to auscultation, good air exchange, normal expiratory time and normal respiratory effort; negative wheezes, rhonchi, rales, dullness to percussion or wheeze present on forced exhalation Cardio Cardiac: Positive regular rate, regular rhythm, S1 normal and S2 normal; negative murmur, rub or gallop GI GI: Positive obese, normal to inspection and normal bowel sounds; negative distended or ascites Genitourinary: Positive def erred Musc Musculoskeletal: Positive steady gait and ROM normal; negative using an assistive device for ambulation, kyphosis or scoliosis Skin Pulmonary Skin Exam: Positive intact; negative rash, lesion , ulcers, erythema or dermal atrophy Pulses Pulse: Yes radial pulses present Extremities Extremities: Yes capillary refill normal, No clubbing, No cyanosis, No edema Neuro Neurologic: Yes conversant, Ye s no focal neuro deficits, Yes normal concentration, Yes understands questions, Yes cooperative, Yes normal cognition, Yes normal coordination Lymph Lymphatic: No lymphadenopathy Psych Appearance: Posit allie grossly normal Mental Status: Positive mental status grossly normal Mood: Positive congruent mood Affect: Positive normal affect Coding Level of Care Code Off vis,est,level 3 Diagnoses FREDY (obstr uctive sleep apnea) G47.33 RLS (restless legs syndrome) G25.81 Over weight E66.3 10/18/17 1141 <Electronically signed by Donald Lane MD> Date Donald Lane MD Cosigner Signature: Date (if applicable) CC: Shila Dinh DO 05-Oct-2017 Office Visit Report Result: Comments: See Note; NOTES: [facility] [address] [place] [address] OFFICE VISIT Date of Service: 10/05/17 MR#: [id number] Acct: [id number] Patient: TORIBIO YAO Rep #: : 1950 Provider: RHEA Mcneill Age/Sex: 67/F Location: [facility] Status: Signed Intake Vital Signs10/05/17 Height 5 ft 8 in 10/05/17 Blood Pressure 122/80 10/05/17 Blood Pressure Location Lt brachial 10/05/17 Blood Pressure Position Sitting Intake Visit Reasons: Diarrhea/GAS/STOMACH PAINS/ Chief Complaint: Diarrhea, Allergies No Known Allergies Allergy (Verified 10/05/17 18: 04) Medications Ferrous Sulfate 325 mg PO QODAY 06/29/14 [History Confirmed 10/05/17] Niacin [Niacin ER] 1,000 mg PO DAILY 06/29/14 [History Confirmed 10/05/17] Omeprazole [Prilosec] 20 mg PO DAILY 06/29/14 [History Confirmed 10/05/17] calcium carbonate 500 mg calcium (1,250 mg) tablet 500 mg PO QDAY tab 07/19/17 [History Confirmed 10/05/17] cholecalciferol (vitamin D3) 1,000 unit capsule 1,000 un it PO QDAY 05/14/18 [History Confirmed 10/05/17] cinnamon bark 500 mg capsule 1,000 mg PO QDAY cap 07/19/17 [History Confirmed 10/05/17] denosumab 60 mg/mL subcutaneous syringe 60 mg SC [id number] [History Confirmed 10/05/17] fluoxetine 10 mg capsule 20 mg PO DAILY cap 07/19/17 [History Confirmed 10/05/17] loperamide 2 mg capsule 2 mg PO Q1-4H PRN #20 cap 10/05/17 [Rx Confirmed 10/05/17] ondans etron HCl 4 mg tablet 4 mg PO BID-TID PRN #20 tab 10/05/17 [Rx Confirmed 10/05/17] [facility] Medical History Sinusitis, acute (Acute) Abdominal bloating ( Acute) Acute pharyngitis (Acute) Bronchitis (Acute) Cough (Acute) Foot fracture, right (Acute) Gasping for breath (Acute) Headache (Acute) Hematuria (Acute) Pain in unspecified joint (Acute) Urinary urg ency (Acute) Wheezing (Acute) Depression (Chronic) GERD (gastroesophageal reflux disease) (Chronic) HTN (hypertension) (Chronic) Hypercholesterolemia (Chronic) Iron deficiency anemia (Chronic) Migraine (Chronic) OCD (obsessive compulsive disorder) (Chronic) FREDY (obstructive sleep apnea) (Chronic) Osteoporosis (Chronic) RLS (restless legs syndrome) (Chronic) Rosacea (Chronic) Small vessel disease, cere brovascular (Chronic) Surgical History History of appendectomy (Resolved) History of cholecystectomy (Resolved) Family History Father Diabetes Mother Rheumatoid arthritis Macular degeneration Brother Diabetes Brother Diabetes Social History household members: spouse housing: house 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 Patient states this initially began after eating [employer] a week a go and thought her symptoms were due to food poisoning. She states she has had food poisoning in the past with similar symptoms. Complains of associated poor appetite. Denies significant nausea. Denies emesis. Denies abdominal pain, fever, chills. Reports a history of IBS. ROS Const Constitutional: Positive for malaise and change in appetite (Poor appetite); no fever(s), body ache, chills or excessi ve sweating ENT ENT: No neck pain Resp Respiratory: No cough or shortness of breath Cardio Cardiology: No chest pain at rest, chest pain with exertion, leg pain with exertion, excessive sweating, shortn ess of breath, dyspnea on exertion, generalized swelling, irregular heart rhythm, lightheadedness, orthopnea, radiating jaw, neck or arm pain, fast heart rate, slow heart rate, palpitations or other Gas tro GI: Positive for bloating, diarrhea, loose stools and cramping; no abdominal pain, blood in stool, vomiting or Black,tarry stools Genitourinary-Female: No difficulty urinating, burning urination, painful urination, urinary incontinence, urinary frequency, urinary urgency, urinary hesitancy, urinary retention, blood in urine, Frequent nighttime urination/ nocturia, post void dribbling, suprapubi c fullness, side pain, sexual problems, genital lesions, genital itching, hot flashes, abnormal periods, abnormal vaginal bleeding, absent period, painful periods, light periods, heavy periods, difficul ty getting , painful intercourse, pelvic pain, vaginal dryness, vaginal odor, Vaginal Itching or other Musc Musculoskeletal: No abnormal walking, joint pain, back pain, deformity, joint swelling , limited range of motion, loss of height, muscle cramps, muscle weakness, decreased muscle mass, body aches, neck pain, numbness, radiating pain into limb, stiffness, tingling or other Skin Skin: No ac ne, hair loss, change in hair, nail changes, boil, change in skin color, dry skin, redness, excessive hair growth, yellowing of the skin, lesions, itching, rash, skin pain, skin ulcer, sores, skin swell ing, wounds or other Breast Breast: No other Neuro Neurology: No abnormal walking, numbness or tingling Psych Psychiatric: Positive for change in appetite (Poor appetite) Endo Endocrine: No excessive sw eating Aller/Imm Allergy/Immunologic: No itchy eyes Exam Const General: cooperative, healthy appearing, comfortable, no acute distress Nutritional Appearance: average body habitus Orientation: alert, awake, oriented x3 HENMT Head: normal to inspection Ears: hearing grossly normal bilaterally Nose: external nose normal Face and sinus: normal facial exam Mouth: oral mucosae normal Neck Neck: normal vi sual inspection Chest Chest palpation AND inspection: normal inspection of the chest Resp Effort AND Inspection: normal respiratory effort Cardio Rate: regular rate Rhythm: regular rhythm Heart Sounds: S1 normal, S2 normal Pulses: radial pulses present GI Inspection: normal to inspection Auscultation: hyperactive bowel sounds Percussion: normal to percussion Palpation: soft Musc Musculoskeletal: No mu scle weakness Skin General: no rashes or lesions noted Neuro Cranial Nerves: CN's II-XI intact bilaterally Extrem General: normal to inspection Psych Affect: normal affect Assessment AND Plan Problems 1. Gastroenteritis K52.9 Plan Zofran 4mg PO BID PRN for Nausea. Imodium 2mg PO Q1-4H for loose stool. Send stool for enteric pathogen. Increase fluid intake. Patient instructed to follow up with PCP i n 3-5 days, sooner if not improved. Patient instructed to go to ER if blood in stool, fever/chills, abdominal pain. Orders Orders: Medications New: loperamide (Imodium A-D) after each loose stool unti l sy2 mg PO Q1-4H PRN loose stool mptoms controlled;do not exceed 16 mg total dose in 24 hrs Coding Level of Care Code Off vis,new,level 3 Diagnoses Gastroenteritis K52.9 10/05/17 1840 <El ectronically signed by Alyssa WILKERSON> Date Alyssa WILKERSON Cosigner Signature: Date (if applicable) CC: 20-Aug-2017 Pulmonary Visit Report Result: Comments: See Note; NOTES: [facility] [id number] [place] [address] OFFICE VISIT Date of Service: 08/20/17 MR#: [id number] Acct: [id number] Name: TORIBIO BALBUENA Rep #: [id number] : 1950 Provider: Amy Kearney Age/Sex: 67/F Location: [facility] Status: Signed Assessment AND Plan 1. FREDY (obstructive sleep apnea) G47.33 Status Acute Plan S howing improvement. No change in Pap settings. No indication for titration study at this point. Keep previously scheduled follow-up with Dr. Lane in October. She has been encouraged to contact the offi ce if she has any difficulties in the meantime. 2. RLS (restless legs syndrome) G25.81 Status Acute Plan She plans to take the Mirapex daily until her follow- up with Dr. Lane in October. HPI 1 M FU: Chief Complaint: Obstructive sleep apnea HPI Comments Details: This patient presents the office today to follow-up on her obstructive sleep apnea. She is ambulatory and currently in room air. She has not been seen in the ED or urgent care for respiratory illnesses since her last office visit. She has not required any antibiotics or prednisone for breathing problems. She reports that since her last office visit she notes that she is feeling more rested in the morning upon arising. She is now only having one episode of nocturia nightly, instead of 3-4. Previously she was having headaches almost da mariela, at this point she is only had 2 headaches in the past month. She also reports that she is waking up less frequently at night. She does report an occasional leak which occurs when she changes positi on while sleeping. She does admit that she is trying to sleep on her back because she is afraid that sleeping on either her right or left side with displaced her nasal pillows. She is cleaning her nasal pillows daily, cleaning the whole entire device once weekly, sometimes twice weekly. She continues to report feeling somewhat sleepy in the afternoon when work is complete. She is not napping, denies a ny difficulty with dry mouth. She does report that in the middle of the night her nose feels "oily. She does have some questions about humidification, for which she plans to discuss thi s with her DME. He denies any shortness of breath, lower extremity edema, chest pain or palpitations. She has not experienced any cough, wheezing or chest tightness. See complete review of systems. Jose razo does report that her primary care provider ordered Mirapex for restless leg syndrome, and she uses it when I feel like I needed. She does admit that recently while reading the instru ctions on the medication as well as the medication insert that it is suggested that she take the medication daily consistently. She has not tried any [id number] medications for her sleep. Compla ints report for the past 30 days shows the patient has been 100% compliant on the current settings of AutoPap 5-12 cm of water. Current use is an average of 7 hours nightly. Current AHI is 3.1 events pe r hour and leaks do not appear to be an issue. 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 Required: No DME Vendor: Giuliano Accompanied by: Self Is patient in pain?: No Aller gies No Known Allergies Allergy (Verified 07/19/17 11:21) Medications Calcium Citrate/Vitamin D3 [Hm Calcium Citrate +Vit D3 Tab] 1 ea PO BID 06/29/14 [History Confirmed 08/20/17] Ferrous Sulfate 3 25 mg PO QODAY 06/29/14 [History Confirmed 08/20/17] Niacin [Niacin ER] 1,000 mg PO DAILY 06/29/14 [History Confirmed 08/20/17] Omeprazole [Prilosec] 20 mg PO DAILY 06/29/14 [History Confirmed 08/20/17] benzonatate 100 mg capsule 100 mg PO Q8H PRN #30 cap 02/26/17 [Rx Confirmed 08/20/17] conjugated estrogens 0.625 mg/gram vaginal cream See Label Instructions VAGINAL .COMPLEX #30 g 04/22/17 [Rx Confirm ed 08/20/17] calcium carbonate 500 mg calcium (1,250 mg) tablet 500 mg PO QDAY tab 07/19/17 [History Confirmed 08/20/17] cholecalciferol (vitamin D3) 1,000 unit capsule 1,000 unit PO QDAY 07/19/17 [Hist ory Confirmed 08/20/17] cinnamon bark 500 mg capsule 1,000 mg PO QDAY cap 07/19/17 [History Confirmed 08/20/17] cyclobenzaprine 10 mg tablet 10 mg PO QDAY PRN tab 07/19/17 [History Confirmed 08/20/17] d enosumab 60 mg/mL subcutaneous syringe 60 mg SC [id number] 07/19/17 [History Confirmed 08/20/17] eletriptan 20 mg tablet 20 mg PO ONCE PRN 07/19/17 [History Confirmed 08/20/17] fluoxetine 10 mg capsule 20 mg PO DAILY cap 07/19/17 [History Confirmed 08/20/17] pramipexole 0.125 mg tablet 0.125 mg PO QHS 08/20/17 [History Confirmed 08/20/17] [facility] Medical History Sinusitis, acute (Acute) Abdominal bloating (Acute) Acute pharyngitis (Acute) Bronchitis (Acute) Cough (Acute) Foot fracture, right (Acute) Gasping for breath (Acute) Headache (Acute) Mark turia (Acute) Pain in unspecified joint (Acute) Urinary urgency (Acute) Wheezing (Acute) Depression (Chronic) GERD (gastroesophageal reflux disease) (Chronic) HTN (hypertension) (Chronic) Hypercholester olemia (Chronic) Iron deficiency anemia (Chronic) Migraine (Chronic) OCD (obsessive compulsive disorder) (Chronic) FREDY (obstructive sleep apnea) (Chronic) Osteoporosis (Chronic) RLS (restless legs syndr ome) (Chronic) Rosacea (Chronic) Small vessel disease, cerebrovascular (Chronic) Surgical History History of appendectomy (Resolved) History of c holecystectomy (Resolved) Family History Father Diabetes Mother Rheumatoid arthritis Macular degeneration Brother Diabetes Brother Diabetes Soci al History household members: spouse housing: house 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 pets and 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: Yes pets and animals: dog(s) Smoking Status: Never smoker alcohol intake: never subs tance use type: does not use Review of Systems Const CONSTITUTIONAL: Negative anorexia, body ache, chills, daytime sleepiness, fever(s), night sweats, oral thrush, stops breathing during sleep, casey ght loss, sleeping in chair, fatigue, weight loss, weight gain, frequent colds, seasonal allergies, other, headache(s) or orthopnea EETM Ear Nose Throat Mouth: Positive hearing normal; negative hard of hearing, hoarseness, dry mouth in morning, change in vision, itchy eyes, eye pain, swallowing Difficulty, ear pain, nose bleed, headache(s), mouth pain, nasal congestion, nasal discharge, post nasal dri p, sinus pain, sinus pressure, sore throat or other Cardio Cardiovascular: Negative chest pain, chest pain at rest, chest pain with activity, irregular heart rhythm, edema, shortness of breath when lyin g down, palpitations, murmur or other Resp Respiratory: Positive as per HPI; negative shortness of breath, pain with cough, wheezing, chest congestion, cough, chest tightness, pain on inspiration, inhal ers, increase use of rescue inhalers, snoring, apnea or other Gastro Gastrointestional: Negative bloody stools, change in appetite, difficulty swallowing, reflux, hematemesis, melena stool, loose stool, constipation or other Genitourinary: Positive nocturia; negative blood in urine, pain with urination or other Musc Musculoskeletal: Negative body pain, back pain, neck pain or other Skin/Breast Skin /Breast: Negative dry skin, itching, rash, unusual bruising, breast lump or other Neuro Neurological: Negative restless legs, confusion, weakness or other Psych Psychocological: Negative abnormal sleep pattern, anxiety, thoughts of hurting self/others, hopelessness or other Lymph Lymphatic: Negative easy bleeding, easy bruising, swollen lymph nodes or other Exam Const Constitutional: Positive conver merlyn, cooperative, in no acute respiratory distress, healthy appearing, well developed, well nourished and good hygiene Head Head: Positive normocephalic and atraumatic; negative cyanosis of lips/distal nose Eyes Eye: Positive clear conjunctiva and nystagmus; negative scleral abnormality Ears Ear: Positive hearing normal and external ears normal; negative hard of hearing Nose Nose: Positive external n ose normal and no nasal discharge; negative epistaxis Mouth Mouth: Positive oral mucosae normal, crowded posterior oropharynx, no lesions and good dentition; negative post nasal drip, malodorous breath or oral thrush present Mallampati Score: III: Mallampati Score Neck Neck: Positive normal visual inspection, full ROM and trachea midline; negative lymphadenopathy, JVD or tender Chest Wall Chest: Posit allie normal inspection of the chest and symmetric chest movement; negative increased A/P diameter Resp lung sounds: Positive clear to auscultation, good air exchange, normal expiratory time and normal re spiratory effort; negative diminished, wheezes, rhonchi, rales, dullness to percussion or wheeze present on forced exhalation Cardio Cardiac: Positive regular rate, regular rhythm, S1 normal and S2 norm al; negative murmur GI GI: Positive normal to inspection and normal bowel sounds; negative distended Genitourinary: Positive deferred Musc Musculoskeletal: Positive steady gait and ROM normal; negati ve kyphosis or scoliosis Skin Pulmonary Skin Exam: Negative rash, intact, lesion, ulcers, erythema, scaly or dermal atrophy Pulses Pulse: Yes pulses normal x4 extremities Extremities Extremities: Yes ca pillary refill normal, No clubbing, No cyanosis, No edema, No stasis dermatitis Neuro Neurologic: Yes conversant, Yes no focal neuro deficits, Yes cooperative, Yes normal cognition, Yes normal coordinat ion, Yes normal concentration, Yes understands questions, No tremor Lymph Lymphatic: No lymphadenopathy, No tenderness, No cervical adenopathy, No axillary adenopathy Psych Appearance: Positive grossly normal, eye contact and well kempt Mental Status: Positive mental status grossly normal Mood: Positive congruent mood Affect: Positive normal affect Coding Level of Care Code Off vis,est,level 3 Diag noses FREDY (obstructive sleep apnea) G47.33 RLS (restless legs syndrome) G25.81 08/20/17 1401 <Electronically signed by Amy WILKERSON> Date Amy MILLANC Cosigner Signature: Date (if applicable) CC: Shila Dinh DO 19-Jul-2017 Pulmonary Visit Report Result: Comments: See Note; NOTES: [facility] [address] [place] [address] OFFICE VISIT Date of Service: 07/19/17 MR#: [id number] Acct: [id number] Name: TORIBIO BALBUENA Rep #: [id number] : 1950 Provider: Amy Kearney Age/Sex: 66/F Location: [facility] Status: Signed Assessment AND Plan 1. FREDY (obstructive sleep apnea) G47.33 Status Acute Plan N ew. Adjust AutoPap from 7-14 cm of water down to 5-12 cm water. Encouraged her to discuss the burning sensation she rinses with the use of her nasal pillows with the [employer], consider alternative ma sks. Follow-up in 1 month to review compliance and evaluate her acclamation to Pap therapy. She has been encouraged to communicate with the office if she has any difficulties in the meantime. Plan for h er to follow-up with Dr. Lane in 3 months. 2. Over weight E66.3 Status Acute Plan Encourage weight loss, this may improve her airway clearance (decrease pressure support needs in). She does have a Ma llampati score of 4, therefore I do not believe she be able to completely come off Therapy with weight loss. Plan Detail Follow Up 3 Months (BWA) 1 Month (CSM) HPI FREDY: Chief Complaint: Frequent head aches HPI Comments Details: This patient presents to the office today for an initial consultation regarding newly identified obstructive sleep apnea. She is ambulatory and currently on room air. Theodora souza she is experiencing frequent nocturnal headaches. She notices that if she wakes up for an episode of nocturia and begins to experience a headache she was treated with Excedrin immediately, otherwise the headache will last the entire day. She also reports that these headaches are her own words are "spring together for 6-7 days but are not every day. She has them frequently. She has at least 1-2 episodes of nocturia nightly. She does wake up with dry mouth in the morning. She has awakened herself from sleep by gasping for air. Her reports that she snores and he has noticed episodes of apnea. She admits to occasional nap. She does fall asleep easily while watching TV, but this occurs typically late at night near bedtime. She believes that she feels rested upon arising in the morning, she also believes that she would notice a difference if she slept 8 hours versus 4 hours. She was set up with the AutoPap 3 nights ago. She did not wear the AutoPap on the first night. The data that was downloaded from the first night was only from set up in the DME office. Currently, she feels that it is too much pressure. She admits that when she removed the AutoPap s he had a sense of relief. She also reports a burning sensation inside her nostrils where the nasal pillows rest. She denies any shortness of breath at rest, during conversation or marcellus n on exertion. She denies any cough, sputum production or hemoptysis. She denies any wheezing, chest tightness, chest pain or palpitations. She denies any fever, chills or body aches. She reports that s he has never been a smoker and denies any pulmonary problems. Polysomnogram completed on May 06, 2017 shows that the patient has an overall AHI score of 53.4 events per hour. Was als o noted that while in the supine position her AHI did increase up to 79.7 events per hour. Severe obstructive sleep apnea is the impression and a CPAP titration study was recommended. The patient had pe riodic limb movement index of 16.4 events per hour. Complaints report for the past 3 days, which is the portable information available since set up, shows that the patient has been 10% compliance. She was able to wear the device 5 hours on 1 of the nights. Otherwise her typical use is approximately 1-2 hours. Current settings are 7-14 cm of water, AutoPap. AHI unfortunately remains elevated at 6.9 ev ents per hour. Leaks do not seem to be a contributing factor. Intake Vital Signs07/19/17 Height 5 ft 8 in 07/19/17 Weight: 178 lb Intake Visit Reasons: FREDY DME Vendor: Giuliano Accompanied by: Lela saini Allergies No Known Allergies Allergy (Verified 07/19/17 11:21) Medications Calcium Citrate/Vitamin D3 [Hm Calcium Citrate +Vit D3 Tab] 1 ea PO BID 06/29/14 [History Confirmed 07/19/17] Ferrous Ayala lfate 325 mg PO QODAY 06/29/14 [History Confirmed 07/19/17] Niacin [Niacin ER] 1,000 mg PO DAILY 06/29/14 [History Confirmed 07/19/17] Omeprazole [Prilosec] 20 mg PO DAILY 06/29/14 [History Confirmed ] benzonatate 100 mg capsule 100 mg PO Q8H PRN #30 cap 02/26/17 [Rx Confirmed 07/19/17] conjugated estrogens 0.625 mg/gram vaginal cream See Label Instructions VAGINAL .COMPLEX #30 g 04/22/17 [Rx Confirmed 07/19/17] albuterol sulfate HFA 90 mcg/actuation aerosol inhaler 2 puff INHALATION TID g 07/19/17 [History Confirmed 07/19/17] calcium carbonate 500 mg calcium (1,250 mg) tablet 500 mg PO QDAY tab 07/19/17 [History Confirmed 07/19/17] cholecalciferol (vitamin D3) 1,000 unit capsule 1,000 unit PO QDAY 07/19/17 [History Confirmed 07/19/17] cinnamon bark 500 mg capsule 1,000 mg PO QDAY cap 07/06 06/23 [History Confirmed 07/19/17] cyclobenzaprine 10 mg tablet 10 mg PO QDAY PRN tab 07/19/17 [History Confirmed 07/19/17] denosumab 60 mg/mL subcutaneous syringe 60 mg SC [id number] 07/19/17 [History Con firmed 07/19/17] eletriptan 20 mg tablet 20 mg PO ONCE PRN 07/19/17 [History Confirmed 07/19/17] fluoxetine 10 mg capsule 20 mg PO DAILY cap 07/19/17 [History Confirmed 07/19/17] PFSH Medical History Sinusitis, acute (Acute) Abdominal bloating (Acute) Acute pharyngitis (Acute) Bronchitis (Acute) Cough (Acute) Foot fracture, right (Acute) Gaspin g for breath (Acute) Headache (Acute) Hematuria (Acute) Pain in unspecified joint (Acute) Urinary urgency (Acute) Wheezing (Acute) Depression (Chronic) GERD (gastroesophageal reflux disease) (Chronic) H TN (hypertension) (Chronic) Hypercholesterolemia (Chronic) Iron deficiency anemia (Chronic) Migraine (Chronic) OCD (obsessive compulsive disorder) (Chronic) FREDY (obstructive sleep apnea) (Chronic) Osteo porosis (Chronic) RLS (restless legs syndrome) (Chronic) Rosacea (Chronic) Small vessel disease, cerebrovascular (Chronic) Surgical History Histo ry of appendectomy (Resolved) History of cholecystectomy (Resolved) Family History Father Diabetes Mother Rheumatoid arthritis Social History ho usehold members: spouse Smoking Status: Never smoker alcohol intake: never Review of Systems Const CONSTITUTIONAL: Positive weight gain and headache(s); negative anorexia, body ache, chills, dayt len sleepiness, fever(s), night sweats, oral thrush, stops breathing during sleep, weight loss, sleeping in chair, fatigue, weight loss, frequent colds, seasonal allergies, other or orthopnea EETM Ear N ose Throat Mouth: Positive headache(s) and hearing normal; negative hoarseness, dry mouth in morning, change in vision, itchy eyes, eye pain, swallowing Difficulty, ear pain, mouth pain, nasal congestio n, nasal discharge, sinus pain, sinus pressure, sore throat, other, hard of hearing, nose bleed or post nasal drip Cardio Cardiovascular: Negative chest pain, chest pain at rest, chest pain with activit y, irregular heart rhythm, edema, shortness of breath when lying down, palpitations, other or murmur Resp Respiratory: Positive as per HPI; negative shortness of breath, pain with cough, wheezing, chest congestion, cough, chest tightness, pain on inspiration, inhalers, increase use of rescue inhalers, snoring, apnea or other Gastro Gastrointestional: Negative bloody stools, change in appetite, difficu lty swallowing, reflux, hematemesis, melena stool, loose stool, constipation or other Genitourinary: Positive nocturia; negative blood in urine, pain with urination or other Musc Musculoskeletal: Neg ative body pain, back pain, neck pain or other Skin/Breast Skin/Breast: Negative dry skin, itching, unusual bruising, breast lump, other or rash Neuro Neurological: Negative restless legs, confusion, we akness or other Psych Psychocological: Positive other (stress); negative abnormal sleep pattern, anxiety, thoughts of hurting self/others or hopelessness Lymph Lymphatic: Negative easy bleeding, easy br uising, other or swollen lymph nodes Exam Const Constitutional: Positive cooperative, in no acute respiratory distress, healthy appearing, well developed, well nourished, good hygiene and conversant H ead Head: Positive normocephalic and atraumatic; negative cyanosis of lips/distal nose Eyes Eye: Positive clear conjunctiva and nystagmus; negative scleral abnormality Ears Ear: Positive hearing normal and external ears normal; negative hard of hearing Nose Nose: Positive external nose normal and no nasal discharge; negative epistaxis Mouth Mouth: Positive oral mucosae normal, crowded posterior oropha rynx, good dentition and no lesions; negative post nasal drip, malodorous breath or oral thrush present Mallampati Score: IV: Mallampati Score Neck Neck: Positive normal visual inspection, full ROM and trachea midline; negative lymphadenopathy, JVD or tender Chest Wall Chest: Positive normal inspection of the chest and symmetric chest movement; negative increased A/P diameter Resp lung sounds: Positiv e clear to auscultation, good air exchange, normal expiratory time and normal respiratory effort; negative diminished, wheezes, rhonchi, rales, dullness to percussion or wheeze present on forced exhalat ion Cardio Cardiac: Positive regular rate, regular rhythm, S1 normal and S2 normal; negative murmur GI GI: Positive normal to inspection and normal bowel sounds; negative distended Genitourinary: Pos itive deferred Musc Musculoskeletal: Positive steady gait and ROM normal; negative kyphosis or scoliosis Skin Pulmonary Skin Exam: Positive intact; negative rash, lesion, ulcers, erythema, scaly or derm al atrophy Pulses Pulse: Yes pulses normal x4 extremities Extremities Extremities: Yes capillary refill normal, No clubbing, No cyanosis, No edema Neuro Neurologic: Yes conversant, Yes no focal neuro de ficits, Yes cooperative, Yes normal cognition, Yes normal coordination, Yes normal concentration, Yes understands questions, No tremor Lymph Lymphatic: No lymphadenopathy, No tenderness, No cervical savana nopathy, No axillary adenopathy Psych Appearance: Positive grossly normal, eye contact and well kempt Mental Status: Positive mental status grossly normal Mood: Positive congruent mood Affect: Positive normal affect Coding Level of Care Code Off vis,new,level 4 Diagnoses FREDY (obstructive sleep apnea) G47.33 Over weight E66.3 07/19/17 1258 <Electronically signed by Amy Kearney NP-C&a manish;#[id number]; Date Amy MILLANC Cosigner Signature: Date (if applicable) CC: Shila Dinh DO 22-Jun-2017 SCREENING MAMM (CAD), BILAT Result: Comments: See Note; NOTES: [facility] Imaging Services [address] [place] [id number] SCREENING MAMM (CAD), BILAT MR#: [id number] Acct: [id number] Name: TORIBIO YAO Rep #: [id number] : 1950 F 66 From: Win Vizcaino MD PCP: Shila Dinh DO Status: [facility] CL Study: SCREENING MAMM (CAD), BILAT Date of Exam: 06/22/17 Exam# [id number] Ordering Dr: Geri Villela MAMMOGRAPHY - BILATERAL SCREENING REASON FOR EXAM: Female, 66 years old. Routine annual screening examination. PERTINENT HISTORY: Non-contributory. TECHNIQUE: Digital bilateral breast lanette (3 D mammographic acquisition) in the CC and MLO projections. 2-D mediolateral oblique (MLO) and craniocaudad (CC) views of both breasts were obtained. CAD: Full Field Digital Mammography with Computer Add ed Detection was performed. COMPARISON: Comparison is made with prior examination dated April 27, 2016 and March 20, 2015. FINDINGS: Breast Composition: The br easts are heterogeneously dense, which may obscure small masses. There are no dominant masses or suspicious calcifications. No other significant abnormalities are identified. There has been no signifi cant change since the prior study. BI/SCREENING MAMM (CAD), BILAT IMPRESSION: Stable bilateral screening mammogram. Yearly follow-up mammogram re commended. (A) ASSESSMENT CATEGORY: BIRADS Category 1: Negative. A letter regarding these results will be sent to the patient by the facility within 30 days. Appro ximately 10% of breast cancers are not detected by mammography. A normal mammogram should not delay biopsy of a clinically suspicious abnormality. [id number] Electronically Signed: Win Vizcaino MD at 8:23 EDT Tel [phone], Service support , CC: SHANE Villela; Shila Dinh DO Material Requirements Planning Manager: Signed 26-Feb-2017 Urgent Care Visit Report Result: Comments: See Note; NOTES: [facility] [address] [place] [address] OFFICE VISIT Date of Service: 02/26/17 MR#: [id number] Acct: [id number] Name: TORIBIO YAO p #: [id number] : 1950 Provider: Junior JOY Age/Sex: 66/F Location: [facility] Status: Signed Intake Vital Signs02/26/17 Height 5 ft 8 in Intake Visit Reasons: flu Is patient in pain?: No Al lergies No Known Allergies Allergy (Verified 02/26/17 16:21) Medications Calcium Citrate/Vitamin D3 [Hm Calcium Citrate +Vit D3 Tab] 1 ea PO BID 06/29/14 [History Confirmed 02/26/17] Ferrous Sulfat e 325 mg PO QODAY 06/29/14 [History Confirmed 02/26/17] Fluoxetine [Prozac] 10 mg PO DAILY 06/29/14 [History Confirmed 02/26/17] Multivitamins,Therapeutic [Multivitamin] 1 tab PO DAILY 06/29/14 [History Confirmed 02/26/17] Niacin [Niacin ER] 1,000 mg PO DAILY 06/29/14 [History Confirmed 02/26/17] Moffett-3 Fatty Acids/Fish Oil [Fish Oil 1,000 mg Capsule] 1 ea PO BID 06/29/14 [History Confirmed 02/26/17] Omeprazole [Prilosec] 20 mg PO DAILY 06/29/14 [History Confirmed 02/26/17] Estrogens, Conjugated [Premarin] 1 dose VAGINAL UD 10/26/16 [History Confirmed 02/26/17] amoxicillin 875 mg-potassium clavulan ate 125 mg tablet 1 tab PO Q12H 10 Days #20 tab 02/26/17 [Rx Confirmed 02/26/17] benzonatate 100 mg capsule 100 mg PO Q8H PRN #30 cap 02/26/17 [Rx Confirmed 02/26/17] PFSH Medical History (Reviewed 1 04/29/16 @ 16:22 by Tracie Sherman) Sinusitis, acute (Acute) Surgical History History of appendectomy (Acute) History of cholecystectomy (Acute) Family History Other Diabetes Social History S moking Status: Never smoker alcohol intake: never HPI flu: Details: TORIBIO YAO, is a 66 F who presents to the office today for complaint of nasal congestion/pressure and pain as well as cough f or the past 5 days. Patient states that she has had intermittent headache and maxillary sinus pressure for the past 5 days that is made better with Tylenol. She also reports a cough which is dry and non productive however has interrupted her sleep and caused her almost to vomit. 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 She denies fever, chills, sweats. She has trie d several gmnd-ejo-ofuczfu medications with no relief. She denies nausea, vomiting, diarrhea. No other associated symptoms or alleviating/aggravating factors. ROS Const Constitutional: Positive for head ache(s) and body ache; no fever(s), anorexia, chills or abnormal sleep pattern ENT ENT: Positive for headache(s), post nasal drip, sore throat, facial pain, sinus pain and nasal discharge Resp Respirato ry: Positive for cough Cough: Yes non-productive; no shortness of breath, hemoptysis or wheezing Cardio Cardiology: No irregular heart rhythm or palpitations Gastro GI: No nausea/dyspepsia Neuro Neurolo gy: Positive for headache(s); no behavioral changes Psych Psychiatric: No behavioral changes, No abnormal sleep pattern Aller/Imm Allergy/Immunologic: No wheezing Exam Const General: cooperative, heal thy appearing HENMT Head: normal to inspection Ears: hearing grossly normal bilaterally, TM's normal bilaterally Nose: external nose normal, nasal discharge clear Face and sinus: sinus tenderness maxill farshad Mouth: oral mucosae normal Throat: abnormal tonsil bilaterally Resp Effort AND Inspection: normal respiratory effort Auscultation: Bilateral: Clear to Auscultation Cardio Rate: regular rate Rhythm: regular rhythm Neuro General: CN's II-XI intact bilaterally, alert Psych Appearance: grossly normal Mental Status: mental status grossly normal Assessment AND Plan Problems 1. Acute non-recurrent maxi llary sinusitis J01.00; J01.00 Status Acute Plan Encouraged to get plenty of rest, drink lots of clear liquids, and use Tylenol or Ibuprofen (unless contraindicated) for fever and comfort. Patient also educated on other symptomatic management techniques. To be seen in 7-10 days if no improvement; sooner if worsening of symptoms. Patient advised of potential red flags and when appropriate report to e ED. Patient verbalized understanding of the above. Orders Orders: Medications New: Coding Level of Care Code Off vis,new,level 3 Diagnoses Acute non- recurrent maxillary sinusitis J01.00; J01.00 R ecurrence: non-recurrent Sinusitis location: maxillary 02/26/17 1700 <Electronically signed by Junior JOY> Date Junior JOY Cosigner Signature: Date (if applicable) CC: 15-Feb-2017 Foot min 3 Views Result: Comments: See Note; NOTES: [facility] Imaging Services [address] [place] [address] Foot min 3 Views MR#: [id number] Acct: [id number] Name: TORIBIO YAO Rep #: [id number] D OB: 1950 F 66 From: Rashid Posadas DO PCP: Shila Dinh DO Status: REG CLI Study: Foot min 3 Views Date of Exam: 02/15/17 Exam# [id number] Ordering Dr: Chuckie Patel PA-C STUDY: X-RAY - RIGHT FO OT CLINICAL: Female, 66 years old. Follow-up fracture. Occasional lateral foot pain. TECHNIQUE: 3 view(s) of the foot. COMPARISON: Left foot, January 16, 2017. F INDINGS: Normal talus, calcaneus, and tarsal bones. Normal visualized subtalar, talonavicular, calcaneocuboid, tarsal and tarsometatarsal articulations. Again seen is a lucency through the base of the fifth metacarpal. There appears to be interval callus formation. There is no change in alignment. The first through fourth metacarpals are unremarkable There is degenerative arthrosis of the metatarso phalangeal joint of the hallux . Normal tibial and fibular sesamoid bones. Normal interphalangeal joint of the great toe. Normal phalanges of the great toe. Normal second through fifth metatarsophalang eal joints. Normal interphalangeal joints and phalanges of the lesser toes. The soft tissue structures are unremarkable. RAD/Foot min 3 Views IM PRESSION: Healing fracture of the base of the fifth metacarpal. Electronically Signed: Rashid Posadas DO at 11:23 EST Tel [phone], Service support , Didier C: Shila Dinh DO; Chuckie JOY Material Requirements Planning Manager: Signed 22-Jan-2017 Foot min 3 Views Result: Comments: See Note; NOTES: [facility] Imaging Services [address] [place] [address] Foot min 3 Views MR#: [id number] Acct: [id number] Name: TORIBIO YAO Rep #: [id number] D OB: 1950 F 66 From: Himanshu Gates MD PCP: Shila Dinh DO Status: REG CLI Study: Foot min 3 Views Date of Exam: 01/22/17 Exam# [id number] Ordering Dr: Chuckie Patel PA-C STUDY: X-RAY - RIGHT FOOT CLINICAL: Female, 66 years old. Follow up fifth metatarsal fracture TECHNIQUE: 3 view(s) of the foot. COMPARISON: 01/05/2017. FINDINGS: There is a nondispl aced fracture at the base of the fifth metatarsal which is not significantly changed when compared with the prior exam. There is no new fracture. There is no evidence of dislocation. There are stable mild degenerative changes in the first toe. RAD/Foot min 3 Views IMPRESSION: Stable exam. Electronically Signed: Himanshu Gates, at 10:05 EST Tel , Qoopl support , CC: Shila Dinh DO; Chuckie JOY Material Requirements Planning Manager: Signed 05-Jan-2017 Foot min 3 Views Result: Comments: See Note; NOTES: [facility] Imaging Services [address] [place] [address] Foot min 3 Views MR#: [id number] Acct: [id number] Name: MAXIMILIANTORIBIO Marte Rep #: [id number] D OB: 1950 F 66 From: Win Vizcaino MD PCP: Shila Dinh DO Status: REG CLI Study: Foot min 3 Views Date of Exam: 01/05/17 Exam# [id number] Ordering Dr: Chuckie Patel PA-C STUDY: X-RAY - R IGHT FOOT CLINICAL: Female, 66 years old. Pain following a fall. TECHNIQUE: 3 view(s) of the foot. COMPARISON: None. FINDINGS: Normal talus, calcaneus, and tarsal bones. Normal visualized subtalar, talonavicular, calcaneocuboid, tarsal and tarsometatarsal articulations. Nondisplaced transverse fracture at the base of the fifth metatarsal. There is degenerativ e arthrosis of the metatarsophalangeal joint of the hallux . Normal tibial and fibular sesamoid bones. Normal interphalangeal joint of the great toe. Normal phalanges of the great toe. Normal second th rough fifth metatarsophalangeal joints. Normal interphalangeal joints and phalanges of the lesser toes. Dorsal soft tissue swelling. RAD/Foot mi n 3 Views IMPRESSION: Nondisplaced transverse fracture at the base of the fifth metatarsal with the dorsal and lateral soft tissue swelling. Electronically Signed: Win Vizcaino MD at 13:06 EDT Tel [phone], Service support , CC: Shila Dinh DO; Chuckie JOY Material Requirements Planning Manager: Signed 27-Apr-2016 SCREENING MAMM (CAD), BILAT Result: Comments: See Note; NOTES: [facility] Imaging Services [address] [place] [address] Verdana 4d SCREENING MAMM (CAD), BILAT MR#: [id number] Acct: [id number] Name: MICHELLE YAO Rep #: [id number] : 1950 F 65 From: Win Vizcaino MD PCP: Shila Dinh DO Status: REG CLI Study: SCREENING MAMM (CAD), BILAT Date of Exam: 04/27/16 Exam# [id number] Ordering Dr: Shila England DO MAMMOGRAPHY - BILATERAL SCREENING REASON FOR EXAM: Female, 65 years old. Routine annual screening examination. PERTINENT HISTORY: Non- contributory. TECHNIQUE: Digital bilateral tabitha st lanette (3D mammographic acquisition) in the CC and MLO projections. 2-D mediolateral oblique (MLO) and craniocaudad (CC) views of both breasts were obtained. CAD: Full Field Digital Mammography with Co mputer Added Detection was performed. COMPARISON: Comparison is made with prior study dated March 18, 2015 and February 21, 2014. FINDINGS: Breast Composition: Th ere are scattered areas of fibroglandular density. There are no dominant masses or suspicious calcifications. No other significant abnormalities are identified. There has been no significant change si nce the prior study. HPBI/SCREENING MAMM (CAD), BILAT IMPRESSION: Stable bilateral screening mammogram. Yearly follow-up mammogram recommended. ( A) ASSESSMENT CATEGORY: BIRADS Category 1: Negative. A letter regarding these results will be sent to the patient by the facility within 30 days. Approximately 10% of breast cancers are not detected by mammography. A normal mammogram should not delay biopsy of a clinically suspicious abnormality. [id number] Electronically Signed: Win Vizcaino MD a t 7:48 EST Tel [phone], Service support [phone], CC: Shila Dinh DO Material Requirements Planning Manager: Signed 25-Feb-2016 Dexa Bone Density Study (HP) Result: Comments: See Note; NOTES: [facility] Imaging Services [address] [place] [address] Verdana 4d Dexa Bone Density Study (HP) MR#: [id number] Acct: [id number] Name: LEXI YAO Rep #: [id number] : 1950 F 65 From: Elgin Ibanez MD PCP: Shila Dinh DO Status: REG CLI Study: Dexa Bone Density Study (HP) Date of Exam: 02/25/16 Exam# [id number] Ordering Dr: Tad Dinh DO STUDY: DUAL ENERGY X-RAY ABSORPTIOMETRY / DXA REASON FOR EXAM: Female, 65 years old. Postmenopausal screening TECHNIQUE: Bone Mineral Density (BMD) measurements of lumbar spine COMPARISO N: 2012 FINDINGS: Lumbar Spine (L1-L4): g/cm2 (0.821) / T-score (-3.0) / Z-score (-1.5) Findings are suggestive of osteoporosis with a high fracture risk. The T-Sc ores on the most recent prior examination were: Lumbar Spine (L1-L4): There has been worsening of bone density since the previous examination. HPBD/Dexa Bone Density Study (HP) IMPRESSION: The patient is considered osteoporotic as outlined below according to World Enrrique Organization (WHO) criteria with a high fracture risk. There has been wors ening of bone density since the previous examination. Reference Information: The T-score is the number of standard deviations above or below the standard which is n ormal for young adults at their peak bone mineral density. The World Health Organization (WHO) interprets the T-scores as follows: Above -1 Normal bone density Between -1 and -2.5 Osteopenia Equal to / or below -2.5 Osteoporosis As a practical clinical guideline, osteopenia may be graded as follows: Mild -1 through -1.5 Moderate -1.6 through -2.0 Severe - 2.1 through -2.4 The Z-score is the number o f standard deviations above or below age-matched controls. A Z-score of less than -1.5 would be considered abnormal. References: 1. NIH Osteoporosis and Related Bone Diseases http://www.osteo.org 2. In ternational Society for Clinical Densitometry http://www.iscd.org 3. National Osteoporosis Foundation http://www.nof.org Electronically Signed: Chadwick Ibanez MD at 8:34 EST Tel , Service support [phone], CC: Shila Dinh DO Material Requirements Planning Manager: Signed 08-Oct-2015 Upper Ext Joint Only(Routine) Result: Comments: See Note; NOTES: [facility] Imaging Services [address] [place] [address] Verdana 4d Upper Ext Joint Only(Routine) MR#: [id number] Acct: [id number] Nate e: TORIBIO YAO Rep #: [id number] : 1950 F 65 From: Tre Covarrubias MD PCP: Shila Dinh DO Status: REG CLI Study: Upper Ext Joint Only(Routine) Date of Exam: 10/08/15 Exam# [id number] Ordering Dr: Nestor Diaz STUDY: MRI LEFT WRIST WITHOUT CONTRAST REASON FOR EXAM: Female, 65 years old. Pain and swelling left wrist. ADC map. History of insect bite 3 months ago on the radial side. TECHNIQUE: Standardized fat and water weighted pulse sequences were obtained in all 3 orthogonal planes. COMPARISON: None. FINDINGS: There is radial s oft tissue swelling/cellulitis. No soft tissue abscess is noted. There is bone marrow edema involving the distal radius, trapezium and proximal first metacarpal (coronal STIR series 7 image 10). The re is a distal radioulnar joint effusion. Normal triangular fibrocartilaginous complex (TFCC). Normal carpal bones. There are degenerative changes of the triscaphe joint Normal pisotriquetral susanne culation. Normal visualized interosseous scapholunate ligament. Normal visualized dorsal (extrinsic) ligaments. Normal visualized volar (extrinsic) ligaments. There is tenosynovitis of the abducto r pollicis longus and extensor pollicis brevis tendons in the first extensor compartment (axial STIR series 6 image 14), with peritendinitis. The rest of the extensor tendons is normal Normal flexor tendons. Normal carpal tunnel with a normal median nerve. Normal carpometacarpal articulation of the thumb. Normal second through fifth carpometacarpal articulations. Normal visualized metacarpal bones. There is no demonstrated soft tissue abnormality. MRI/Upper Ext Joint Only(Routine) IMPRESSION: Extensive soft tissue swelling/cell ulitis in the radial aspect of the wrist with bone marrow edema of the distal radius, trapezium and first metacarpal most likely representing reactive edema rather than osteomyelitis. No soft tissue abscess is noted. Severe tenosynovitis and peritendinitis of the abductor pollicis longus and extensor pollicis brevis tendons in the first extensor compartment. Distal radioulnar joint effusion. Osteoarthritis of the first carpometacarpal joint Electronically Signed: Tre Covarrubias MD, FACR at 9:49 EDT , Service support [phone], CC: Shila Dinh DO; Nestor Diaz Material Requirements Planning Manager: Signed 24-Sep-2015 Hand Min 3 Views Result: Comments: See Note; NOTES: [facility] Imaging Services [address] [place] [address] Verda 4d Hand Min 3 Views MR#: [id number] Acct: [id number] Name: RAINA YAO Rep #: [id number] : 1950 F 65 From: Win Vizcaino MD PCP: Shila Dinh DO Status: REG CLI Study: Hand Min 3 Views Date of Exam: 09/24/15 Exam# [id number] Ordering Dr: Nidhi Diaz STUDY: X-RAY - LEFT HAND REASON FOR EXAM: Female, 65 years old. Pain, redness and swelling along the dorsal aspect of the first metacarpal following a prior bug bite. TECHNIQUE: 3 view(s ) of the hand. COMPARISON: None. FINDINGS: Normal visualized carpal bones and carpal articulations. Normal carpometacarpal articulation of the thumb. Normal s econd through fifth carpometacarpal joints. Normal metacarpi. Normal metacarpophalangeal (MCP) joints. Normal visualized phalanges and interphalangeal joints. The soft tissue structures are unrema rkable. IMPRESSION: Normal x-ray examination of the hand. Electronically Signed: Win Vizcaino MD at 10:44 EDT Tel [phone], Service suppo rt [phone], RAD/Hand Min 3 Views IMPRESSION: Normal x-ray examination of the hand. Electronically Signed: Win Vizcaino MD at 10:44 ED T Tel [phone], Service support [phone], CC: Shila Diaz Material Requirements Planning Manager: Signed 29-May-2015 12 Lead Electrocardiogram Result: Comments: See Note; NOTES: [facility] Cardiovascular Services [address] [place] [address] 12 Lead EKG 05/27/15 0921 MR#: [id number] Acct: [id number] Name: TORIBIO BALBUENA Rep #: [id number] : 1950 64 From: Wilber Carpio MD Attending Dr: Radha Mcdowell MD Status: REG CLI Ordering Dr: Radha Mcdowell MD Date: 05/27/15 Location: [facility] Sex: F C Admitted: Test Reason : HYPERTENSION Blood Pressure : / mmHG Vent. Rate : 061 BPM Atrial Rate : 061 BPM P-R Int : 162 ms QRS Dur : 090 ms QT Int : 394 ms P-R-T Axes : 063 035 040 degrees QTc Int : 396 ms Normal sinus rhythm Normal ECG Confirmed by WILBER CARPIO MD ([id number]), editor at large CHRISTOPHER SALDAÑA ([id number]) on 05/29/2015 9:48:33 AM Referred By: STEPHANIE Confirmed By:WILBER CARPIO MD 05/29/15 0948 D ate Wilber Carpio MD CC: Shila Dinh DO Date Dictated: 05/27/15920 Date Transcribed: 05/27/15920 Material Requirements Planning Manager: Signed 20-Mar-2015 Unilat Rt Diag Digital AND CAD Result: Comments: See Note; NOTES: [facility] Imaging Services [address] [place] [address] Verdana 4d Unilat Rt Diag Digital AND CAD MR#: [id number] Acct: [id number] Na me: TORIBIO YAO Rep #: [id number] : 1950 F 64 From: Win Vizcaino MD PCP: Shila Dinh DO Status: REG CLI Study: Unilat Rt Diag Digital AND CAD Date of Exam: 03/20/15 Exam# [id number]: Geri Villela [facility] MAMMOGRAPHY - UNILATERAL DIAGNOSTIC: RIGHT BREAST REASON FOR EXAM: Female, 64 years old. Abnormal screening mammogram. PERTINENT HISTORY: Non-contributory . TECHNIQUE: Digital examination. 90? lateral as well as compression spot views and rolled views of the right breast were obtained. CAD: CAD was performed on this study. COMPARISON: Comparison is made with prior study dated March 18, 2015. FINDINGS: Breast Composition: There are scattered areas of fibroglandular density. There are no dominant masses or suspicious calcifications. The previously seen focal architectural distortion in the upper aspect of the right breast on the mediolateral oblique view is not seen at this time. No other significant abnormalities are identified. IMPRESSION: Stable unilateral diagnostic mammogram. One year follow-up mammogram recommended. (A) ASSESSMENT CATEGORY: BIRADS Category 2: Benign. A letter regarding these results will be sent to the patient by the facility within 30 days. Approximately 10% of breast cancers are not detec priscilla by mammography. A normal mammogram should not delay biopsy of a clinically suspicious abnormality. Electronically Signed: Win Vizcaino MD at 13:09 EST Tel [phone], [employer] e support [phone], CC: Shila Dinh DO; Geri Villela Material Requirements Planning Manager: Signed 18-Mar-2015 Bilat Scrn Digital AND CAD Result: Comments: See Note; NOTES: [facility] Imaging Services [address] [place] [address] Verdana 4d Bilat Scrn Digital AND CAD MR#: [id number] Acct: [id number] Name: TORIBIO YAO Rep #: [id number] : 1950 F 64 From: Win Vizcaino MD PCP: Shila Dinh DO Status: REG CLI Study: Bilat Scrn Digital AND CAD Date of Exam: 03/18/15 Exam# [id number] Or dering Dr: Geri Villela [facility] [facility] MAMMOGRAPHY - BILATERAL SCREENING REASON FOR EXAM: Female, 64 years old. Routine annual screening examination. PERTINENT HISTORY: Non-contributory. TECHNIQUE: Digital examination. Mediolateral oblique (MLO) and craniocaudad (CC) views of both breasts were obtained. CAD: CAD was performed on this study. COMPARISON: Comparison is made with prior study dated February 21, 2014 and January 03, 2013. FINDINGS: Breast Composition: The breasts are almost entirely fatty. A focal or architectural distortion is seen in th e upper aspect of the right breast on the mediolateral oblique view. The patient will be recalled for additional views including 90? lateral and compression spot views. No cluster of microcalcificati on is seen. No other significant abnormalities are identified. IMPRESSION: Focal area of architectural distortion in the right breast as described. The patient will be recalled for additional views. Recall Side: Right Breast ASSESSMENT CATEGORY: BIRADS Category 0: Incomplete. Need additional imaging evaluation. A let ter regarding these results will be sent to the patient by the facility within 30 days. Approximately 10% of breast cancers are not detected by mammography. A normal mammogram should not delay biops y of a clinically suspicious abnormality. [id number] Electronically Signed: Win Vizcaino MD at 8:10 EST Tel [phone], Service support [phone], CC: Lizandro Dinh DO; Geri Villela Material Requirements Planning Manager: Signed 04-Jul-2014 History and Physical Exam Result: Comments: See Note; NOTES: [facility] Medical Records Department [address] [place] [address] History and Physical 06/29/14 0729 MR#: [id number] Acct: [id number] Name: TORIBIO YAO Rep #: [id number] : 1950 63 From: Good Finley MD PCP: Shila Dinh DO Status: REG CLI Location: EN DATE OF SERVICE: DATE OF EVALUATION: June 29, 2014. HISTORY OF PRESENT ILLNESS: A 63-year-old female with no gastrointestinal symptoms, upper and lower who went over screening colonoscopy 10 years ago. She has no family history and no current symptoms for screening colonoscopy. OUTPATIENT MEDICATIONS: Prilosec. There is no history of cardiovascular, pulmonary or renal disease. PHYSICAL EXAMINATION: VITAL SIGNS: Stable. CHEST: Clear. COR: S1, S2. ABDOMEN: Bowel sounds positive, soft, nontender, nondistended. NEUROLOGIC: The patient is alert. IMPRESSION: Excellent candidate for screening colonoscopy, which is to follow. Sincerely, Adenike Finley MD T: NTS JOB: [id number] 07/04/14 0658 <Electronically signed by Good Finley MD> Date: Time: Good Finley MD CC: Good Finley; Shila Dinh DO Date Dictated: 06/29/14728 Date Transcribed: 06/29/14728 Material Requirements Planning Manager: Signed ____ I have re- examined the patient. There are no clinical change s since date of exam. ____ See Progress Notes for Changes ____ Dictated on Admission Date: Time: Signature: -Jun-2014 Operative Report Result: Comments: See Note; NOTES: [facility] Medical Records Department [address] [place] [address] Operative Report MR#: [id number] Acct: [id number] Name: TORIBIO YAO p #: [id number] : 1950 63 From: Good Finley MD PCP: Shila Dinh DO Status: REG CLI DATE OF SERVICE: 06/29/2014 DATE OF SERVICE: June 29, 2014 PROCEDURE: Colonoscopy report. HISTORY: Screening colonoscopy, no family history. INSTRUMENT USED: Standard Olympus pediatric video colonoscope. FINDINGS: Scope was passed to the cecum. She did have a very tortuous colon loop ing on the right side. This required changes of position, manipulation of the scope, and external pressure. Cecum was identified by lac courte oreilles's foot appearance, appendiceal orifice, and ileocecal valve. Upon withdrawal of the scope, the cecum, ascending, hepatic flexure, transverse, splenic flexure, descending, sigmoid colon and rectum were unremarkable. She does have internal and external hemorrh oids. IMPRESSION: Normal colonoscopy other than internal and external hemorrhoids. RECOMMENDATIONS: We would suggest repeat colonoscopy at a 10-year interval or sooner if new symptoms develop. S he will need propofol for the next examination. Good Finley MD T: NTS JOB: [id number] 07/04/14 0658 <Electronically signed by Good Finley MD> Date Good Finley MD CC: Good Finley; Shila Dinh DO Date Dictated: 06/29/14730 Date Transcribed: 06/29/14730 Material Requirements Planning Manager: Signed 21-Feb-2014 Bilat Diag Digital AND CAD Result: Comments: See Note; NOTES: [facility] Imaging Services [address] [place] [address] Breast Imaging Report MR#: [id number] Acct: [id number] Name: MAXIMILIANTORIBIO A Rep #: [id number] : 1950 F 63 From: Win Vizcaino MD PCP: Shila Dinh DO Status: REG CLI Study: Bilat Diag Digital AND CAD Date of Exam: 02/21/14 Exam# [id number] Ordering Dr: Emmanuel Villela MAMMOGRAPHY - BILATERAL DIAGNOSTIC REASON FOR EXAM: Female, 63 years old. Right breast pain. PERTINENT HISTORY: TECHNIQUE: Digital examination. Mediolateral oblique (MLO) and craniocaudad (CC) views of both breasts were obtained. CAD: CAD was performed on this study. COMPARISON: Comparison is made with prior study dated January 03, 2013 and December 31, 2011 FINDINGS: Breast Composition: The breasts are heterogeneously dense, which may obscure small masses. There are no dominant masses or suspicious calcifications. No other significant a bnormalities are identified. There has been no significant change since the prior study. IMPRESSION: Stable bilateral diagnostic mammogram. One year follow-up re commended. (A) ASSESSMENT CATEGORY: BIRADS Category 2: Benign. A letter regarding these results will be sent to the patient by the facility within 30 days. Jyothi roximately 10% of breast cancers are not detected by mammography. A normal mammogram should not delay biopsy of a clinically suspicious abnormality. Electronically Signed: Win Vizcaino MD 2 at 9:23 EST Tel [phone], Service support [phone], CC: Shila Dinh DO; GERI VILLELA Material Requirements Planning Manager: Signed 21-Feb-2014 Breast Unilateral Result: Comments: See Note; NOTES: [facility] Imaging Services [address] [place] [address] Ultrasound Report MR#: [id number] Acct: [id number] Name: TORIBIO YAO Rep #: [id number] : 1950 F 63 From: Win Vizcaino MD PCP: Shila Dinh DO Status: REG CLI Study: Breast Unilateral Date of Exam: 02/21/14 Exam# [id number] Ordering Dr: Geri Villela STUDY : ULTRASOUND BREAST(S) - RIGHT REASON FOR EXAM: Female, 63 years old. Pain in the right breast. TECHNIQUE: Axial and longitudinal images of the RIGHT breast were performed with a high resolution ul trasound transducer. COMPARISON: Comparison is made with the prior mammogram done earlier in the day. FINDINGS: RIGHT BREAST: The retroareolar region of the right breast was examined. There is evidence of dilated subareolar ducts. No solid or cystic mass lesion is seen. IMPRESSION: Mild dilatation of the subareolar d ucts. ASSESSMENT CATEGORY: BIRADS Category 2: Benign. A letter regarding these results will be sent to the patient by the facility within 30 days. Electronical ly Signed: Win Vizcaino MD at 9:24 EST Tel [phone], Service support [phone], CC: Shila Dinh DO; GERI VILLELA Material Requirements Planning Manager: Signed 08-Jan-2014 Foot min 3 Views Result: Comments: See Note; NOTES: [facility] Imaging Services [address] [place] [address] Radiology Report MR#: [id number] Acct: [id number] Name: TORIBIO YAO Rep #: [id number] : 1950 F 63 From: Win Vizcaino MD PCP: Shila Dinh DO Status: REG CLI Study: Foot min 3 Views Date of Exam: 01/08/14 Exam# [id number] Ordering Dr: Ngoc Smith STUDY: X-R AY - LEFT FOOT CLINICAL: Female, 63 years old. Pain. TECHNIQUE: 4 view(s) of the foot. COMPARISON: None. FINDINGS: Normal talus, calcaneus, and tarsal bones . Normal visualized subtalar, talonavicular, calcaneocuboid, tarsal and tarsometatarsal articulations. Normal metatarsi. There is degenerative arthrosis of the metatarsophalangeal joint of the h allux with a hallux valgus deformity. Normal tibial and fibular sesamoid bones. Normal interphalangeal joint of the great toe. Normal phalanges of the great toe. Normal second through fifth metatars ophalangeal joints. Normal interphalangeal joints and phalanges of the lesser toes. The soft tissue structures are unremarkable. IMPRESSION: Degenerative arthr osis at the first metatarsal phalangeal joint. Electronically Signed: Win Vizcaino MD at 16:04 EST Tel [phone], Service support [phone], CC: Hayes Dinh DO; Ngoc Smith DPM Material Requirements Planning Manager: Signed 14-Dec-2013 Brain W/WO Contrast Result: Comments: See Note; NOTES: [facility] Imaging Services [address] [place] [address] MRI Report MR#: [id number] Acct: [id number] Name: TORIBIO YAO Rep #: [id number] : 1950 F 63 From: Ang Castañeda MD PCP: Shila Dinh DO Status: REG CLI Study: Brain W/WO Contrast Date of Exam: 12/14/13 Exam# [id number] Ordering Dr: Joshua Tate MD STUDY: MRI BRAIN WITH AND WITHOUT CONTRAST REASON FOR EXAM: Female, 63 years old. Headache. TECHNIQUE: Standardized multiplanar fat and water weighted pulse sequences were obtained. 9 ml of Gadavist contrast material was administered intravenously for the contrast portion of the examination. COMPARISON: Prior head CT dated August 24, 2013. FINDINGS: Normal size of th e ventricles and extra-axial spaces for the patient's age. There are multiple white matter hyperintensities, distributed throughout the deep white matter tracts of the cerebral hemispheres similar to prior study with differential diagnostic considerations including prior infectious versus inflammatory or ischemic etiologies.. There is no evidence for recent intracranial ischemia or other cause o f cytotoxic edema on diffusion weighted imaging (DWI). Normal bilateral basal ganglia including thalami. There is no loculated extra-axial fluid accumulation. Normal flow voids within the major in tracranial circulation suggesting patency by spin echo criteria. Normal venous enhancement. There is no enhancing intra-axial or extra-axial abnormality. Normal sella turcica, pituitary gland, infun dibular stalk, optic chiasm and hypothalamus. Normal tectal plate and pineal gland. Normal midbrain, pippa and medulla. Normal cerebellum. Normal basal cisterns. Normal bilateral temporal bones. Norm al bilateral internal auditory canals. No demonstrated orbital abnormality, within the constraints of a routine brain study. Normal visualized paranasal sinuses. Normal calvarium and skull base. No rmal visualized soft tissue structures. Normal visualized upper cervical spine. IMPRESSION: Nonspecific chronic white matter disease noted. Otherwise negative MR I of the brain. There is no intracranial mass, hemorrhage, hydrocephalus, abnormal postcontrast enhancement or acute infarction. Electronically Signed: Ang Castañeda MD at 19:21 EDT T el [phone], Service support [phone], CC: Shila Dinh DO; Joshua Tate MD Material Requirements Planning Manager: Signed 24-Aug-2013 Brain/Head W/WO Contrast Result: Comments: See Note; NOTES: [facility] Imaging Services [address] [place] [address] CAT Scan Report MR#: [id number] Acct: [id number] Name: TORIBIO YAO Rep #: [id number] : 1950 F 63 From: Daisha Delaney MD PCP: Shila Dinh DO Status: REG CLI Study: Brain/Head W/WO Contrast Date of Exam: 08/24/13 Exam# [id number] Ordering Dr: Shila Dinh DO STUDY: CT BRAIN WITH AND WITHOUT CONTRAST REASON FOR EXAM: Female, 63 years old. Severe headaches. RADIATION DOSAGE (If Supplied By Facility): CTDIvol = ( 64.89 ) mGy, DLP = ( 2246.95 ) mGycm TECHNIQUE: Transaxial CT imaging of the brain was performed pre and post contrast administration. The examination was performed with intravenous administration of 50 ml of Isovue 370 contrast material . COMPARISON: None. FINDINGS: There is slight widening of the cortical sulci and ventricles. Scattered hypodensities are present in the bilateral cerebral wh ite matter, greater in the frontal lobes, consistent with chronic small vessel ischemic changes. Normal basal ganglia and thalami. Normal appearing brainstem and cerebellum. There is no intracrani al hemorrhage or acute infarction. No abnormal enhancement is identified. Venous markings or pacchionian granulations are noted in the upper calvarium. No significant finding in the visualized pa ranasal sinuses. IMPRESSION: No acute abnormality identified. Mild/moderate chronic small vessel ischemic changes in the cerebral white matter. Electronical ly Signed: Daisha Talbot MD at 16:30 EDT , Service support [phone], CC: Shila Dinh DO Material Requirements Planning Manager: Signed Immunization Name Dates Details Influenza (3 years and up) on: 26-Jan-2006 Influenza (3 years and up) on: 02-Feb-2007 Comments: 0.5 cc given im lt arml lot [id number] exp 09-05-07 Tdap (7 years and up) on: 16-Jul-2008 Comments: Lot #[id number]-left deltoidDose0.5mlgiven by Juan F Fine LPN Family History Unknown Family Member Name Dates Details Father Comments: Diabetes Status: Active Mother Comments: Rheumatoid arthritis Status: Active Social History Name Dates Details Caffeine Use Comments: 3 QD Status: Active 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 Status: Active Smoking Status Name Dates Details Never smoker Vital Signs Date Test Result Details [id number] Pulse 77 /min Comments: Pattern: Regular Respiration Rate 18 /min Comments: Pattern: Unlabored O2 SAT 98 % Comments: Room air BP Systolic 124 mm[Hg] Comments: Patient Position: Sitting; Cuff Location: Left Arm; Cuff Size: Large BP Diastolic 88 mm[Hg] Comments: Patient Position: Sitting; Cuff Location: Left Arm; Cuff Size: Large Weight 187.375 lb Height 68 in Body Mass Index Calculated 28.49 kg/m2 Body Surface Area Calculated 1.99 m2 :35 Temperature 98.2 f Comments: Method: Temporal Pulse 80 /min Comments: Pattern: Regular Respiration Rate 16 /min Comments: Pattern: Unlabored O2 SAT 97 % Comments: Room air BP Systolic 122 mm[Hg] Comments: Patient Position: Sitting; Cuff Location: Left Arm; Cuff Size: Standard BP Diastolic 86 mm[Hg] Comments: Patient Position: Sitting; Cuff Location: Left Arm; Cuff Size: Standard Weight 185 lb Height 68 in Body Mass Index Calculated 28.13 kg/m2 Body Surface Area Calculated 1.98 m2 :26 Pulse 72 /min Comments: Pattern: Regular Respiration Rate 18 /min Comments: Pattern: Unlabored O2 SAT 98 % Comments: Room air BP Systolic 138 mm[Hg] Comments: Patient Position: Sitting; Cuff Location: Left Arm; Cuff Size: Large BP Diastolic 80 mm[Hg] Comments: Patient Position: Sitting; Cuff Location: Left Arm; Cuff Size: Large Weight 181 lb Height 68 in Body Mass Index Calculated 27.52 kg/m2 Body Surface Area Calculated 1.96 m2 :15 Pulse 77 /min Comments: Pattern: Regular Respiration Rate 18 /min Comments: Pattern: Unlabored O2 SAT 96 % Comments: Room air BP Systolic 132 mm[Hg] Comments: Patient Position: Sitting; Cuff Location: Left Arm; Cuff Size: Standard BP Diastolic 82 mm[Hg] Comments: Patient Position: Sitting; Cuff Location: Left Arm; Cuff Size: Standard Weight 177 lb Height 68 in Body Mass Index Calculated 26.91 kg/m2 Body Surface Area Calculated 1.94 m2 :06 Pulse 66 /min Comments: Pattern: Regular Respiration Rate 18 /min Comments: Pattern: Unlabored O2 SAT 97 % Comments: Room air BP Systolic 128 mm[Hg] Comments: Patient Position: Sitting; Cuff Location: Left Arm; Cuff Size: Large BP Diastolic 82 mm[Hg] Comments: Patient Position: Sitting; Cuff Location: Left Arm; Cuff Size: Large Weight 175.125 lb Height 68 in Body Mass Index Calculated 26.63 kg/m2 Body Surface Area Calculated 1.93 m2 :23 Temperature 97.9 f Comments: Method: Temporal Pulse 74 /min Comments: Pattern: Regular Respiration Rate 20 /min Comments: Pattern: Unlabored O2 SAT 99 % Comments: Room air BP Systolic 120 mm[Hg] Comments: Patient Position: Sitting; Cuff Location: Left Arm; Cuff Size: Standard BP Diastolic 78 mm[Hg] Comments: Patient Position: Sitting; Cuff Location: Left Arm; Cuff Size: Standard Weight 165 lb Height 68 in Body Mass Index Calculated 25.09 kg/m2 Body Surface Area Calculated 1.88 m2 :17 Pulse 86 /min Comments: Pattern: Regular Respiration Rate 18 /min Comments: Pattern: Unlabored O2 SAT 98 % Comments: Room air BP Systolic 124 mm[Hg] Comments: Patient Position: Sitting; Cuff Location: Left Arm; Cuff Size: Large BP Diastolic 78 mm[Hg] Comments: Patient Position: Sitting; Cuff Location: Left Arm; Cuff Size: Large Weight 165.5 lb Height 68 in Body Mass Index Calculated 25.16 kg/m2 Body Surface Area Calculated 1.89 m2 :58 Pulse 82 /min Comments: Pattern: Regular Respiration Rate 18 /min Comments: Pattern: Unlabored O2 SAT 99 % Comments: Room air BP Systolic 138 mm[Hg] Comments: Patient Position: Sitting; Cuff Location: Left Arm; Cuff Size: Large BP Diastolic 82 mm[Hg] Comments: Patient Position: Sitting; Cuff Location: Left Arm; Cuff Size: Large Weight 164.375 lb Height 68 in Body Mass Index Calculated 24.99 kg/m2 Body Surface Area Calculated 1.88 m2 :04 Temperature 98.5 f Comments: Method: Temporal Respiration Rate 17 /min Comments: Pattern: Unlabored O2 SAT 97 % Comments: Room air BP Systolic 142 mm[Hg] Comments: Patient Position: Sitting; Cuff Location: Left Arm; Cuff Size: Standard BP Diastolic 70 mm[Hg] Comments: Patient Position: Sitting; Cuff Location: Left Arm; Cuff Size: Standard Weight 170.5 lb Height 68 in Body Mass Index Calculated 25.92 kg/m2 Body Surface Area Calculated 1.91 m2 :26 Temperature 97.4 f Comments: Method: Temporal Pulse 83 /min Comments: Pattern: Regular O2 SAT 98 % Comments: Room air BP Systolic 118 mm[Hg] Comments: Patient Position: Sitting; Cuff Location: Left Arm; Cuff Size: Large BP Diastolic 64 mm[Hg] Comments: Patient Position: Sitting; Cuff Location: Left Arm; Cuff Size: Large Weight 172.5 lb Height 68 in Body Mass Index Calculated 26.23 kg/m2 Body Surface Area Calculated 1.92 m2 :36 Temperature 97.1 f Comments: Method: Tympanic Pulse 66 /min Comments: Pattern: Regular Respiration Rate 18 /min Comments: Pattern: Unlabored O2 SAT 98 % Comments: Room air BP Systolic 158 mm[Hg] Comments: Patient Position: Sitting; Cuff Location: Left Arm; Cuff Size: Standard BP Diastolic 98 mm[Hg] Comments: Patient Position: Sitting; Cuff Location: Left Arm; Cuff Size: Standard Weight 172.5 lb Height 68 in Body Mass Index Calculated 26.23 kg/m2 Body Surface Area Calculated 1.92 m2 :08 Pulse 75 /min Comments: Pattern: Regular Respiration Rate 18 /min Comments: Pattern: Unlabored O2 SAT 98 % Comments: Room air BP Systolic 132 mm[Hg] Comments: Patient Position: Sitting; Cuff Location: Left Arm; Cuff Size: Large BP Diastolic 80 mm[Hg] Comments: Patient Position: Sitting; Cuff Location: Left Arm; Cuff Size: Large Weight 174.5 lb Height 68 in Body Mass Index Calculated 26.53 kg/m2 Body Surface Area Calculated 1.93 m2 :48 Temperature 99.1 f Comments: Method: Oral Pulse 82 /min Comments: Pattern: Regular O2 SAT 97 % Comments: Room air BP Systolic 124 mm[Hg] Comments: Patient Position: Sitting; Cuff Location: Left Arm; Cuff Size: Standard BP Diastolic 78 mm[Hg] Comments: Patient Position: Sitting; Cuff Location: Left Arm; Cuff Size: Standard Weight 176.375 lb Height 68 in Body Mass Index Calculated 26.82 kg/m2 Body Surface Area Calculated 1.94 m2 :24 Pulse 75 /min Comments: Pattern: Regular Respiration Rate 18 /min Comments: Pattern: Unlabored O2 SAT 98 % Comments: Room air BP Systolic 124 mm[Hg] Comments: Patient Position: Sitting; Cuff Location: Left Arm; Cuff Size: Large BP Diastolic 78 mm[Hg] Comments: Patient Position: Sitting; Cuff Location: Left Arm; Cuff Size: Large Weight 176.375 lb Height 68 in Body Mass Index Calculated 26.82 kg/m2 Body Surface Area Calculated 1.94 m2 :15 Temperature 98.8 f Comments: Method: Tympanic Pulse 76 /min Comments: Pattern: Regular Respiration Rate 16 /min Comments: Pattern: Unlabored O2 SAT 98 % Comments: Room air BP Systolic 130 mm[Hg] Comments: Patient Position: Sitting; Cuff Location: Left Arm; Cuff Size: Standard BP Diastolic 74 mm[Hg] Comments: Patient Position: Sitting; Cuff Location: Left Arm; Cuff Size: Standard Weight 173.25 lb Height 68 in Body Mass Index Calculated 26.34 kg/m2 Body Surface Area Calculated 1.92 m2 :16 Temperature 97.9 f Comments: Method: Oral Pulse 73 /min Comments: Pattern: Regular Respiration Rate 18 /min Comments: Pattern: Unlabored O2 SAT 98 % Comments: Room air BP Systolic 120 mm[Hg] Comments: Patient Position: Sitting; Cuff Location: Left Arm; Cuff Size: Standard BP Diastolic 62 mm[Hg] Comments: Patient Position: Sitting; Cuff Location: Left Arm; Cuff Size: Standard Weight 177.3125 lb Height 68 in Body Mass Index Calculated 26.96 kg/m2 Body Surface Area Calculated 1.94 m2 :27 Temperature 98.4 f Comments: Method: Temporal Pulse 68 /min Comments: Pattern: Regular Respiration Rate 16 /min Comments: Pattern: Unlabored O2 SAT 97 % Comments: Room air BP Systolic 122 mm[Hg] Comments: Patient Position: Sitting; Cuff Location: Left Arm; Cuff Size: Standard BP Diastolic 68 mm[Hg] Comments: Patient Position: Sitting; Cuff Location: Left Arm; Cuff Size: Standard Weight 177.3125 lb Height 68 in Body Mass Index Calculated 26.96 kg/m2 Body Surface Area Calculated 1.94 m2 :17 Pulse 65 /min Comments: Pattern: Regular Respiration Rate 20 /min Comments: Pattern: Unlabored O2 SAT 98 % Comments: Room air BP Systolic 128 mm[Hg] Comments: Patient Position: Sitting; Cuff Location: Left Arm; Cuff Size: Large BP Diastolic 82 mm[Hg] Comments: Patient Position: Sitting; Cuff Location: Left Arm; Cuff Size: Large Weight 174.3125 lb Height 68 in Body Mass Index Calculated 26.5 kg/m2 Body Surface Area Calculated 1.93 m2 :06 Temperature 97.3 f Comments: Method: Oral Pulse 64 /min Comments: Pattern: Regular Respiration Rate 18 /min Comments: Pattern: Unlabored BP Systolic 122 mm[Hg] Comments: Patient Position: Sitting; Cuff Location: Left Arm; Cuff Size: Large BP Diastolic 78 mm[Hg] Comments: Patient Position: Sitting; Cuff Location: Left Arm; Cuff Size: Large Weight 172.5 lb Height 68 in Body Mass Index Calculated 26.23 kg/m2 Body Surface Area Calculated 1.92 m2 :27 Temperature 97.6 f Comments: Method: Oral Pulse 64 /min Comments: Pattern: Regular Respiration Rate 18 /min Comments: Pattern: Unlabored BP Systolic 134 mm[Hg] Comments: Patient Position: Sitting; Cuff Location: Left Arm; Cuff Size: Large BP Diastolic 78 mm[Hg] Comments: Patient Position: Sitting; Cuff Location: Left Arm; Cuff Size: Large Weight 170.3125 lb Height 68 in Body Mass Index Calculated 25.9 kg/m2 Body Surface Area Calculated 1.91 m2 :47 Temperature 98.4 f Comments: Method: Oral Pulse 68 /min Comments: Pattern: Regular Respiration Rate 16 /min Comments: Pattern: Unlabored BP Systolic 122 mm[Hg] Comments: Patient Position: Sitting; Cuff Location: Left Arm; Cuff Size: Standard BP Diastolic 68 mm[Hg] Comments: Patient Position: Sitting; Cuff Location: Left Arm; Cuff Size: Standard Weight 169.5 lb Height 68 in Body Mass Index Calculated 25.77 kg/m2 Body Surface Area Calculated 1.91 m2 :00 Pulse 60 /min Comments: Pattern: Regular Respiration Rate 16 /min Comments: Pattern: Unlabored BP Systolic 122 mm[Hg] Comments: Patient Position: Sitting; Cuff Location: Left Arm; Cuff Size: Large BP Diastolic 84 mm[Hg] Comments: Patient Position: Sitting; Cuff Location: Left Arm; Cuff Size: Large Weight 169.5 lb Height 68 in Body Mass Index Calculated 25.77 kg/m2 Body Surface Area Calculated 1.91 m2 :14 Pulse 68 /min Comments: Pattern: Regular Respiration Rate 16 /min Comments: Pattern: Unlabored BP Systolic 122 mm[Hg] Comments: Patient Position: Sitting; Cuff Location: Left Arm; Cuff Size: Large BP Diastolic 82 mm[Hg] Comments: Patient Position: Sitting; Cuff Location: Left Arm; Cuff Size: Large Weight 166.0625 lb Height 68 in Body Mass Index Calculated 25.25 kg/m2 Body Surface Area Calculated 1.89 m2 :23 Pulse 64 /min Comments: Pattern: Regular Respiration Rate 20 /min Comments: Pattern: Unlabored BP Systolic 118 mm[Hg] Comments: Patient Position: Sitting; Cuff Location: Left Arm; Cuff Size: Large BP Diastolic 68 mm[Hg] Comments: Patient Position: Sitting; Cuff Location: Left Arm; Cuff Size: Large Weight 168.0625 lb Height 68 in Body Mass Index Calculated 25.55 kg/m2 Body Surface Area Calculated 1.9 m2 :28 Temperature 97.6 f Pulse 68 /min Comments: Pattern: Regular Respiration Rate 18 /min Comments: Pattern: Unlabored BP Systolic 130 mm[Hg] Comments: Patient Position: Sitting; Cuff Location: Left Arm; Cuff Size: Standard BP Diastolic 82 mm[Hg] Comments: Patient Position: Sitting; Cuff Location: Left Arm; Cuff Size: Standard Weight 165.125 lb Height 68 in Body Mass Index Calculated 25.11 kg/m2 Body Surface Area Calculated 1.88 m2 :42 Pulse 80 /min Comments: Pattern: Regular Respiration Rate 20 /min Comments: Pattern: Unlabored BP Systolic 136 mm[Hg] Comments: Patient Position: Sitting; Cuff Location: Left Arm; Cuff Size: Large BP Diastolic 80 mm[Hg] Comments: Patient Position: Sitting; Cuff Location: Left Arm; Cuff Size: Large Weight 159.125 lb :21 Pulse 60 /min Comments: Pattern: Regular Respiration Rate 18 /min Comments: Pattern: Unlabored BP Systolic 122 mm[Hg] Comments: Patient Position: Sitting; Cuff Location: Left Arm; Cuff Size: Large BP Diastolic 80 mm[Hg] Comments: Patient Position: Sitting; Cuff Location: Left Arm; Cuff Size: Large Weight 159.125 lb :05 Temperature 97.3 f Comments: Method: Oral Pulse 70 /min Comments: Pattern: Regular Respiration Rate 16 /min Comments: Pattern: Unlabored BP Systolic 122 mm[Hg] Comments: Patient Position: Sitting; Cuff Location: Left Arm; Cuff Size: Standard BP Diastolic 78 mm[Hg] Comments: Patient Position: Sitting; Cuff Location: Left Arm; Cuff Size: Standard Weight 163 lb :06 Pulse 64 /min Comments: Pattern: Regular Respiration Rate 18 /min Comments: Pattern: Unlabored BP Systolic 120 mm[Hg] Comments: Patient Position: Sitting; Cuff Location: Left Arm; Cuff Size: Large BP Diastolic 64 mm[Hg] Comments: Patient Position: Sitting; Cuff Location: Left Arm; Cuff Size: Large Weight 163 lb :20 Pulse 72 /min Comments: Pattern: Regular Respiration Rate 20 /min Comments: Pattern: Unlabored BP Systolic 124 mm[Hg] Comments: Patient Position: Sitting; Cuff Location: Left Arm; Cuff Size: Large BP Diastolic 82 mm[Hg] Comments: Patient Position: Sitting; Cuff Location: Left Arm; Cuff Size: Large Weight 168.0625 lb Height 0 in Head Circumference 0.00 cm :24 Pulse 60 /min Comments: Pattern: Regular Respiration Rate 20 /min Comments: Pattern: Unlabored BP Systolic 122 mm[Hg] Comments: Patient Position: Sitting; Cuff Location: Left Arm; Cuff Size: Large BP Diastolic 80 mm[Hg] Comments: Patient Position: Sitting; Cuff Location: Left Arm; Cuff Size: Large Weight 165.375 lb Height 0 in Head Circumference 0.00 cm :48 Pulse 60 /min Comments: Pattern: Regular Respiration Rate 16 /min Comments: Pattern: Unlabored BP Systolic 128 mm[Hg] Comments: Patient Position: Sitting; Cuff Location: Left Arm; Cuff Size: Large BP Diastolic 70 mm[Hg] Comments: Patient Position: Sitting; Cuff Location: Left Arm; Cuff Size: Large Weight 165.375 lb Height 0 in Head Circumference 0.00 cm :57 Pulse 80 /min Comments: Pattern: Regular Respiration Rate 20 /min Comments: Pattern: Unlabored BP Systolic 118 mm[Hg] Comments: Patient Position: Sitting; Cuff Location: Left Arm; Cuff Size: Large BP Diastolic 66 mm[Hg] Comments: Patient Position: Sitting; Cuff Location: Left Arm; Cuff Size: Large Weight 167.5 lb Height 0 in Head Circumference 0.00 cm :42 Pulse 72 /min Comments: Pattern: Regular Respiration Rate 20 /min Comments: Pattern: Unlabored BP Systolic 118 mm[Hg] Comments: Patient Position: Sitting; Cuff Location: Left Arm; Cuff Size: Large BP Diastolic 62 mm[Hg] Comments: Patient Position: Sitting; Cuff Location: Left Arm; Cuff Size: Large Weight 171.5 lb Height 0 in Head Circumference 0.00 cm :31 Pulse 72 /min Comments: Pattern: Regular Respiration Rate 16 /min Comments: Pattern: Unlabored BP Systolic 118 mm[Hg] Comments: Patient Position: Sitting; Cuff Location: Left Arm; Cuff Size: Large BP Diastolic 70 mm[Hg] Comments: Patient Position: Sitting; Cuff Location: Left Arm; Cuff Size: Large Weight 174.4375 lb Height 0 in Head Circumference 0.00 cm :15 Pulse 60 /min Comments: Pattern: Regular Respiration Rate 20 /min Comments: Pattern: Unlabored BP Systolic 120 mm[Hg] Comments: Patient Position: Sitting; Cuff Location: Right Arm; Cuff Size: Standard BP Diastolic 68 mm[Hg] Comments: Patient Position: Sitting; Cuff Location: Right Arm; Cuff Size: Standard Weight 174.125 lb Height 0 in Head Circumference 0.00 cm :23 Pulse 80 /min Comments: Pattern: Regular Respiration Rate 20 /min Comments: Pattern: Unlabored BP Systolic 122 mm[Hg] Comments: Patient Position: Sitting; Cuff Location: Left Arm; Cuff Size: Standard BP Diastolic 80 mm[Hg] Comments: Patient Position: Sitting; Cuff Location: Left Arm; Cuff Size: Standard Weight 173 lb Height 0 in Head Circumference 0.00 cm :04 Pulse 70 /min Comments: Pattern: Regular Respiration Rate 18 /min Comments: Pattern: Unlabored BP Systolic 118 mm[Hg] Comments: Patient Position: Sitting; Cuff Location: Left Arm; Cuff Size: Standard BP Diastolic 74 mm[Hg] Comments: Patient Position: Sitting; Cuff Location: Left Arm; Cuff Size: Standard Weight 173 lb Height 0 in Head Circumference 0.00 cm :18 Temperature 97.7 f Comments: Method: Oral Pulse 72 /min Comments: Pattern: Regular Respiration Rate 20 /min Comments: Pattern: Unlabored BP Systolic 122 mm[Hg] Comments: Patient Position: Sitting; Cuff Location: Left Arm; Cuff Size: Standard BP Diastolic 78 mm[Hg] Comments: Patient Position: Sitting; Cuff Location: Left Arm; Cuff Size: Standard Weight 173 lb Height 0 in Head Circumference 0.00 cm :36 Temperature 97.8 f Comments: Method: Undefined Pulse 76 /min Comments: Pattern: Regular Respiration Rate 20 /min Comments: Pattern: Undefined BP Systolic 120 mm[Hg] Comments: Patient Position: Sitting; Cuff Location: Left Arm; Cuff Size: Standard BP Diastolic 86 mm[Hg] Comments: Patient Position: Sitting; Cuff Location: Left Arm; Cuff Size: Standard Weight 174 lb Height 0 in Head Circumference 0.00 cm [id number] Temperature 98.1 f Comments: Method: Undefined Pulse 88 /min Comments: Pattern: Regular Respiration Rate 16 /min Comments: Pattern: Undefined BP Systolic 132 mm[Hg] Comments: Patient Position: Sitting; Cuff Location: Left Arm; Cuff Size: Large BP Diastolic 68 mm[Hg] Comments: Patient Position: Sitting; Cuff Location: Left Arm; Cuff Size: Large Weight 0 lb Height 0 in Head Circumference 0.00 cm Results Date Description Value Details [id number] Hemoglobin A1c Comments: [facility] [id number] [place] [address], [address] HGB A1C 5.4 % (Normal) Range: 4.2-6.3 [id number] CDIFF (Molecular) Comments: [facility] [id number] [place] [address], [address] CDIFF See Note (Normal) Comments: Cdiff-MolecularNormal Reference Range = Negative C. Diff DNA Negative- No toxigenic C. Diff DNA DetectedNAAT METHOD Testing was performed using nucleic acid amplification [id number] Stool Lactoferrin/WBC Comments: [address], [address] WBCST See Note (Normal) Comments: Stool Lacto/WBCNormal Reference Range = Negative Fecal WBC Lactoferrin Negative: No Fecal WBC Lactoferrin present [id number] ENTERIC PATHOGEN PANEL STOOL Comments: [address], [address] EP PANEL See Note (Normal) Comments: Reason for Exam: Diarrhea EP PANEL STOOLNormal Reference Range = Not Detected Not detected for Campylobacter group, Salmonella species, Shigella species, Vibrio Group, Yersinia enterocolitica, EHEC ( Shiga Toxin 1, Shiga Toxin 2), Norovirus Gl/Gll, and Rotavirus A. Other common stool pathogens are not detected on this panel include: Aeromonas/Plesiomonas or parasites. Order testing for these organ isms separately if suspected. This is an amplified DNA test which makes it both specific and sensitive. CAMPYLOBACTER Not DetectedSalmonella Not DetectedShigella sp. Not DetectedShiga Toxin Not DetectedYersinia Not DetectedVIBRIO Not DetectedNorovirus Not DetectedRotavirus Not Detected [id number] Stool Lactoferrin/WBC Comments: [facility] [id number] [place], [place], [address] WBCST See Note (Normal) Comments: Reason for Exam: Diarrhea Stool Lacto/WBCNormal Reference Range = Negative Fecal WBC Lactoferrin Negative: No Fecal WBC Lactoferrin present [id number] CBC, Employee Comments: [facility] [id number] [place], [place], [id number] Absolute Lymph 1.53 {X10_3/ul} (Normal) Range: 0.83-4.51 Absolute Neut 3.3 {X10_3/uL} (Normal) Range: 2.0-7.7 BASO% 0.0 % (Normal) Range: 0-1 EO% 0.0 % (Normal) Range: 0-5 MONO% 10.0 % (Normal) Range: 0-10 LY% 28.4 % (Normal) Range: 19-41 NEUT% 61.6 % (Normal) Range: 47-70 MPV 9.1 fL (Normal) Range: 6.2-12.0 PLT 323 K/mm3 (Normal) Range: 150-450 RDW SD 37.5 fL (Normal) Range: 35.1-43.9 RDW CV 12.4 % (Normal) Range: 11.6-14.6 MCHC 32.9 {g/gl} (Normal) Range: 32-36 MCH 27.4 pg (Normal) Range: 27.0-32.0 MCV 83.2 fL (Normal) Range: 81-99 HCT 37.7 % (Normal) Range: 37-47 HGB 12.4 g/dL (Normal) Range: 12.0-15.0 RBC 4.53 {M/mm3} (Normal) Range: 4.2-5.4 WBC 5.4 K/mm3 (Normal) Range: 4.4-11.0 [id number]:04 Employee Profile Comments: [facility] [id number] [place], [place], [address] LDH 175 U/L (Normal) Range: 84-246 VLDL 9 mg/dL (Normal) Range: 5-40 LDL 80 mg/dL (Normal) Range: 0-130 CHOL:HDL 2.40 (Normal) HDL 62 mg/dL (Normal) Comments: The drugs N-Acetylcysteine and Metamizole may falselydepress this assay. Reference Range HDL <40 mg/dL Low HDL Cholesterol HDL >or= 60 mg/dL High HDL Cholesterol GAP 9 (Normal) Range: 5-15 CO2 26.0 mmol/L (Normal) Range: 21.0-32.0 CL 100 mmol/L (Normal) Range: 98-107 K 4.2 mmol/L (Normal) Range: 3.5-5.1 NA 135 mmol/L (Abnormal) Range: 136-145 TRIG 47 mg/dL (Normal) Comments: The drugs N-Acetylcysteine and Metamizole may falselydepress this assay.Serum Triglycerides Reference Interval Normal <150 mg/dL Borderline high 150 - 199 mg/dL High 200 - 499 mg/dL Very High > or = 500 mg/dL CHOL 151 mg/dL (Normal) Comments: <200 mg/dL Desirable 200-240 mg/dL Borderline >240 mg/dL High Risk D BILI 0.09 mg/dL (Normal) Range: 0.00-0.30 T BILI 0.30 mg/dL (Normal) Range: 0.20-1.00 ALT 27 U/L (Normal) Range: 13-56 ALK P 73 U/L (Normal) Range: 45-117 AST 19 U/L (Normal) Range: 15-37 PHOS 3.7 mg/dL (Normal) Range: 2.5-4.9 CA 8.7 mg/dL (Normal) Range: 8.5-10.1 A/G 1.0 {RATIO} (Normal) Range: 0.9-2.4 GLOB 3.4 g/dL (Normal) Range: 2.2-4.2 ALB 3.5 g/dL (Normal) Range: 3.2-5.0 T PROT 6.9 g/dL (Normal) Range: 6.4-8.2 URIC 3.6 mg/dL (Normal) Range: 2.6-6.0 Comments: The drugs N-Acetylcysteine and Metamizole may falselydepress this assay. BUN/CRE 24.9 {RATIO} (Abnormal) Range: 10-20 EST GFR - AA 111 mL/min (Normal) Comments: GFR Calc EST GFR 92 mL/min (Normal) Comments: Non- GFR Calc CREAT,SERUM 0.68 mg/dL (Normal) Range: 0.55-1.02 Comments: The validity of the calculated GFR AND GFRAA in patients over70 years has not been determined. Clinical correlation isessential. BUN 17 mg/dL (Normal) Range: 7-18 GLU 93 mg/dL (Normal) Range: 74-106 Comments: Please note revised GLUCOSE reference range [id number]/02/2018. [id number] Nicotine Urine Drug Screen Comments: [facility] [id number] [facility] [address] [place], [place], [address] COT DRG SCREEN Negative (Normal) Comments: Cotinine is the first-stage metabolite of Nicotine. TO BE CONFIRMED (Normal) Comments: CONFIRMATORY TESTING FOR ALL POSITIVE URINE DRUG SCREENRESULTS WILL ONLY BE SENT OUT UPON PHYSICIAN ORDER.The results of Urine Drug Screen methods provide onlypreliminary analytical test results. A more specificalternate chemical method must be used in order to obtain aconfirmed analytical result. Gas chromatography/massspectrometery (GC/MS) is the preferred confirmatory method.Clinical consideration and professional judgement should beapplied to any drug of abuse test result, particularly whenpreliminary positive results are used. :04 Urinalysis, Employee Comments: [facility] [id number] [place], [place], [id number] LEUK ESTERASE 25 /ul (Abnormal) OCCULT BLOOD-UR 10 /ul (Abnormal) NITRITE UR Negative (Normal) UROBILI Normal mg/dL (Normal) PROT DIPSTX 15 mg/dL (Abnormal) pH UR 7.0 (Normal) Range: 5.0 - 8.0 SP.GR. DIPSTX 1.010 (Normal) Range: 1.002-1.030 KETONE UR Negative mg/dL (Normal) BILIRUBIN URINE Negative mg/dL (Normal) GLUCOSE, UR Normal mg/dL (Normal) CLARITY Sl. Cloudy (Normal) COLOR Yellow (Normal) :29 CBC W/Diff, Automated Comments: [facility] [id number] [place], [place], [id number] Absolute Lymph 1.26 {X10_3/ul} (Normal) Range: 0.83-4.51 Absolute Neut 3.2 {X10_3/uL} (Normal) Range: 2.0-7.7 IM GRAN % 0.000 % (Normal) Range: 0.0-0.9 Comments: IG% - Immature Granulocytes (promyelocytes, myelocytes andmetamyelocytes) > 1% indicates that a LEFT SHIFT is Present. BASO% 0.0 % (Normal) Range: 0-1 EO% 0.0 % (Normal) Range: 0-5 MONO% 9.1 % (Normal) Range: 0-10 LY% 25.9 % (Normal) Range: 19-41 NEUT% 65.0 % (Normal) Range: 47-70 MPV 9.4 fL (Normal) Range: 6.2-12.0 PLT 337 K/mm3 (Normal) Range: 150-450 RDW SD 40.4 fL (Normal) Range: 35.1-43.9 RDW CV 13.0 % (Normal) Range: 11.6-14.6 MCHC 32.1 {g/gl} (Normal) Range: 32-36 MCH 27.3 pg (Normal) Range: 27.0-32.0 MCV 85.1 fL (Normal) Range: 81-99 HCT 40.5 % (Normal) Range: 37-47 HGB 13.0 g/dL (Normal) Range: 12.0-15.0 RBC 4.76 {M/mm3} (Normal) Range: 4.2-5.4 WBC 4.9 K/mm3 (Normal) Range: 4.4-11.0 [id number] Comprehensive Metabolic Profil Comments: [facility] [id number] [place], [place], [id number] GAP 6 (Normal) Range: 5-15 CO2 29.0 mmol/L (Normal) Range: 21.0-32.0 CL 101 mmol/L (Normal) Range: 98-107 K 4.5 mmol/L (Normal) Range: 3.5-5.1 NA 136 mmol/L (Normal) Range: 136-145 T BILI 0.30 mg/dL (Normal) Range: 0.20-1.00 ALT 28 U/L (Normal) Range: 13-56 ALK P 73 U/L (Normal) Range: 45-117 AST 22 U/L (Normal) Range: 15-37 CA 8.8 mg/dL (Normal) Range: 8.5-10.1 A/G 1.1 {RATIO} (Normal) Range: 0.9-2.4 GLOB 3.5 g/dL (Normal) Range: 2.2-4.2 ALB 3.9 g/dL (Normal) Range: 3.2-5.0 T PROT 7.4 g/dL (Normal) Range: 6.4-8.2 BUN/CRE 22.2 {RATIO} (Abnormal) Range: 10-20 EST GFR - AA 97 mL/min (Normal) Comments: GFR Calc EST GFR 80 mL/min (Normal) Comments: Non- GFR Calc CREAT,SERUM 0.77 mg/dL (Normal) Range: 0.55-1.02 Comments: The validity of the calculated GFR AND GFRAA in patients over70 years has not been determined. Clinical correlation isessential. BUN 17 mg/dL (Normal) Range: 7-18 GLU 62 mg/dL (Abnormal) Range: 74-106 Comments: Please note revised GLUCOSE reference range [id number]/02/2018. [id number] Ferritin Comments: [facility] [id number] [facility]. [place], [place], [id number] FERRITIN 18 ng/mL (Normal) Range: 8-252 91-Qkg-[id number]:29 Hemoglobin A1c Comments: [address] [place], [place], [id number] HGB A1C 5.2 % (Normal) Range: 4.2-6.3 00-[id number]:29 Iron+Iron Binding Capacity Comments: [address] [place], [address] IRON SATURATION 17.0 % (Normal) Range: 15.0-55.0 IRON 73 ug/dL (Normal) Range: 50-170 TIBC 429 ug/dL (Normal) Range: 250-450 [id number]-[id number] Microalb:Creat Ratio,Random UR Comments: [facility] [id number] [place], [address] MALB:CREAT 17.3 {mg/g_CRE} (Normal) MICROALBUMIN,UR 5.3 mg/L (Normal) UR CREAT 30.80 mg/dL (Normal) [id number]-[id number]:29 Thyroid Stim Hormone (TSH) Comments: [facility] [id number] [place], [address] TSH 1.61 {uIU/mL} (Normal) Range: 0.358-3.74 [id number]-[id number]:54 Hemoglobin A1c Comments: [facility] [id number] [place], [address] HGB A1C 5.6 % (Normal) Range: 4.2-6.3 73-Vnn-10813:00 PAP I-G HPV Hi Risk Comments: CYTOLOGY INFORMATION:- CLINICAL INFORMATION:- DATE LMP/MENOPAUSE:- COLLECTION VIAL: Thin Prep Vial- DIRECTOR TRANSPORTATION SOURCE: CERVICAL- COLLECTION TECHNIQUE: BRUSH/SPATULASpecimen Comment: [id number] Comment: No. of containers..01 CYTYC Thin Prep VialLabCorp (refer to report for specific site)refer to report for address and phone number HPV HC,HGH RISK Negative Comments: This high-risk HPV test detects thirteen high-risk types(16/18/31/33/35/39/45/51/52/56/58/59/68) withoutdifferentiation.Performed at: - [facility] [id number] (Normal) b Director: Sarahi Posadas MD, Phone: [phone] at: = - [facility] [id number] Director: Sarahi Posadas MD, Phone: [phone] PAPSMR Comment Comments: The Pap smear is a screening test designed to aid in thedetection of premalignant and malignant conditions of theuterine cervix. It is not a diagnostic procedure andshould not be used as the sole means (Normal) of detecting cervicalcancer. Both false-positive and false-negative reports dooccur. COMM . (Normal) TEST METHOD Comment Comments: This liquid based ThinPrep(R) pap test was screened withthe use of an image guided system. (Normal) SIGN Comment Comments: Rosalva Chaves MD, Pathologist (Normal) PERFORM Comment Comments: Belkys Mcbride, Cone Operator (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 Endocervical and/or squamous metaplasticcells (endocervical component) are present. (Normal) DIAGN Comment Comments: NEGATIVE FOR INTRAEPITHELIAL LESION AND MALIGNANCY.REACTIVE CELLULAR CHANGES AND/OR REPAIR ARE PRESENT. (Normal) [id number] Hemoglobin A1c Comments: [facility] [address] [place], [place], [address] HGB A1C 5.5 % (Normal) Range: 4.2-6.3 09-Jun-20168:08 CBC, Employee Comments: [facility] [address] [place], [place], [address] Absolute Lymph 1.30 {X10_3/ul} (Normal) Range: 0.83-4.51 Absolute Neut 2.4 {X10_3/uL} (Normal) Range: 2.0-7.7 BASO% 0.0 % (Normal) Range: 0-1 EO% 0.0 % (Normal) Range: 0-5 MONO% 10.3 % (Abnormal) Range: 0-10 LY% 31.8 % (Normal) Range: 19-41 NEUT% 57.9 % (Normal) Range: 47-70 MPV 9.4 fL (Normal) Range: 6.2-12.0 PLT 295 K/mm3 (Normal) Range: 150-450 RDW SD 38.6 fL (Normal) Range: 35.1-43.9 RDW CV 12.7 % (Normal) Range: 11.6-14.6 MCHC 32.6 {g/gl} (Normal) Range: 32-36 MCH 27.5 pg (Normal) Range: 27.0-32.0 MCV 84.2 fL (Normal) Range: 81-99 HCT 42.0 % (Normal) Range: 37-47 HGB 13.7 g/dL (Normal) Range: 12.0-15.0 RBC 4.99 {M/mm3} (Normal) Range: 4.2-5.4 WBC 4.1 K/mm3 (Abnormal) Range: 4.4-11.0 09-Jun-20168:08 Employee Profile Comments: [facility] [address] [place], [address] LDH 166 U/L (Normal) Range: 84-246 VLDL 15 mg/dL (Normal) Range: 5-40 LDL 93 mg/dL (Normal) Range: 0-130 CHOL:HDL 2.40 (Normal) HDL 75 mg/dL (Normal) Comments: The drugs N-Acetylcysteine and Metamizole may falsely deressthis assay. Reference Range HDL <40 mg/dL Low HDL Cholesterol HDL >or= 60 mg/dL High HDL Cholesterol GAP 4 (Abnormal) Range: 5-15 CO2 27.0 mmol/L (Normal) Range: 21.0-32.0 CL 103 mmol/L (Normal) Range: 98-107 K 3.8 mmol/L (Normal) Range: 3.5-5.1 NA 134 mmol/L (Abnormal) Range: 136-145 TRIG 77 mg/dL (Normal) Comments: The drugs N-Acetylcysteine and Metamizole may falsely deressthis assay.Serum Triglycerides Reference Interval Normal <150 mg/dL Borderline high 150 - 199 mg/dL High 200 - 499 mg/dL Very High > or = 500 mg/dL CHOL 183 mg/dL (Normal) Comments: <200 mg/dL Desirable 200-240 mg/dL Borderline >240 mg/dL High Risk D BILI 0.10 mg/dL (Normal) Range: 0.00-0.30 T BILI 0.50 mg/dL (Normal) Range: 0.20-1.00 ALT 31 U/L (Normal) Range: 12-78 ALK P 72 U/L (Normal) Range: 45-117 AST 24 U/L (Normal) Range: 15-37 PHOS 3.2 mg/dL (Normal) Range: 2.5-4.9 CA 8.5 mg/dL (Normal) Range: 8.5-10.1 A/G 1.2 {RATIO} (Normal) Range: 0.9-2.4 GLOB 3.2 g/dL (Normal) Range: 2.3-3.5 ALB 3.7 g/dL (Normal) Range: 3.4-5.0 T PROT 6.9 g/dL (Normal) Range: 6.4-8.2 URIC 3.7 mg/dL (Normal) Range: 2.6-6.0 Comments: The drugs N-Acetylcysteine and Metamizole may falsely deressthis assay. BUN/CRE 11.8 {RATIO} (Normal) Range: 10-20 EST GFR - AA 98 mL/min (Normal) Comments: GFR Calc EST GFR 81 mL/min (Normal) Comments: Non- GFR Calc CREAT,SERUM 0.76 mg/dL (Normal) Range: 0.55-1.02 Comments: The validity of the calculated GFR AND GFRAA in patients over70 years has not been determined. Clinical correlation isessential. BUN 9 mg/dL (Normal) Range: 7-18 GLU 86 mg/dL (Normal) Range: 70-110 :08 Nicotine Urine Drug Screen Comments: [facility] [address] [place], [address] COT DRG SCREEN Negative (Normal) Comments: Cotinine is the first-stage metabolite of Nicotine. TO BE CONFIRMED (Normal) Comments: CONFIRMATORY TESTING FOR ALL POSITIVE URINE DRUG SCREENRESULTS WILL ONLY BE SENT OUT UPON PHYSICIAN ORDER.The results of Urine Drug Screen methods provide onlypreliminary analytical test results. A more specificalternate chemical method must be used in order to obtain aconfirmed analytical result. Gas chromatography/massspectrometery (GC/MS) is the preferred confirmatory method.Clinical consideration and professional judgement should beapplied to any drug of abuse test result, particularly whenpreliminary positive results are used. :08 Urinalysis, Employee Comments: How was Urine Obtained? [facility] [address] [place], [place], [id number] LEUK ESTERASE 25 /ul (Abnormal) OCCULT BLOOD-UR 10 /ul (Abnormal) NITRITE UR Negative (Normal) UROBILI Normal mg/dL (Normal) PROT DIPSTX 15 mg/dL (Abnormal) pH UR 7.0 (Normal) Range: 5.0 - 8.0 SP.GR. DIPSTX 1.005 (Normal) Range: 1.002-1.030 KETONE UR Negative mg/dL (Normal) BILIRUBIN URINE Negative mg/dL (Normal) GLUCOSE, UR Normal mg/dL (Normal) CLARITY Clear (Normal) COLOR Yellow (Normal) 09-Jun-20168:06 CBC W/Diff, Automated Comments: [facility] [address] [place], [address] Absolute Lymph 1.42 {X10_3/ul} (Normal) Range: 0.83-4.51 Absolute Neut 2.4 {X10_3/uL} (Normal) Range: 2.0-7.7 IM GRAN % 0.000 % (Normal) Range: 0.0-0.9 Comments: IG% - Immature Granulocytes (promyelocytes, myelocytes andmetamyelocytes) > 1% indicates that a LEFT SHIFT is Present. BASO% 0.0 % (Normal) Range: 0-1 EO% 0.0 % (Normal) Range: 0-5 MONO% 8.2 % (Normal) Range: 0-10 LY% 34.3 % (Normal) Range: 19-41 NEUT% 57.5 % (Normal) Range: 47-70 MPV 9.6 fL (Normal) Range: 6.2-12.0 PLT 287 K/mm3 (Normal) Range: 150-450 RDW SD 38.5 fL (Normal) Range: 35.1-43.9 RDW CV 12.6 % (Normal) Range: 11.6-14.6 MCHC 32.9 {g/gl} (Normal) Range: 32-36 MCH 27.7 pg (Normal) Range: 27.0-32.0 MCV 84.0 fL (Normal) Range: 81-99 HCT 41.6 % (Normal) Range: 37-47 HGB 13.7 g/dL (Normal) Range: 12.0-15.0 RBC 4.95 {M/mm3} (Normal) Range: 4.2-5.4 WBC 4.1 K/mm3 (Abnormal) Range: 4.4-11.0 :06 Comprehensive Metabolic Profil Comments: [facility] [address] [place], [place], [id number] GAP 1 (Abnormal) Range: 5-15 CO2 28.0 mmol/L (Normal) Range: 21.0-32.0 CL 104 mmol/L (Normal) Range: 98-107 K 3.8 mmol/L (Normal) Range: 3.5-5.1 NA 133 mmol/L (Abnormal) Range: 136-145 T BILI 0.40 mg/dL (Normal) Range: 0.20-1.00 ALT 30 U/L (Normal) Range: 12-78 ALK P 68 U/L (Normal) Range: 45-117 AST 24 U/L (Normal) Range: 15-37 CA 8.6 mg/dL (Normal) Range: 8.5-10.1 A/G 1.2 {RATIO} (Normal) Range: 0.9-2.4 GLOB 3.2 g/dL (Normal) Range: 2.3-3.5 ALB 3.8 g/dL (Normal) Range: 3.4-5.0 T PROT 7.0 g/dL (Normal) Range: 6.4-8.2 BUN/CRE 13.6 {RATIO} (Normal) Range: 10-20 EST GFR - AA 102 mL/min (Normal) Comments: GFR Calc EST GFR 84 mL/min (Normal) Comments: Non- GFR Calc CREAT,SERUM 0.74 mg/dL (Normal) Range: 0.55-1.02 Comments: The validity of the calculated GFR AND GFRAA in patients over70 years has not been determined. Clinical correlation isessential. BUN 10 mg/dL (Normal) Range: 7-18 GLU 86 mg/dL (Normal) Range: 70-110 :06 Hemoglobin A1c Comments: [facility] [address] [place], [place], [id number] HGB A1C 5.7 % (Normal) Range: 4.2-6.3 :06 Microalb:Creat Ratio,Random UR Comments: [facility] [address] [place], [address] MALB:CREAT 4.8 {mg/g_CRE} (Normal) MICROALBUMIN,UR 6.4 mg/L (Normal) UR CREAT 132.00 mg/dL (Normal) :06 Thyroid Stim Hormone (TSH) Comments: [facility] [address] [place], [address] TSH 1.17 {uIU/mL} (Normal) Range: 0.358-3.74 :06 Urinalysis, Complete Comments: How was Urine Obtained? [facility] [address] [place], [address] MUCUS, URINE RARE {/hpf} (Normal) BACTERIA RARE {/hpf} (Normal) SQUAM EPI 0-5 SEEN {/hpf} (Normal) Range: 5-10 RBC-UA 0-5 SEEN {/hpf} (Normal) Range: 0-5 WBC 0-5 SEEN {/hpf} (Normal) Range: 0-5 LEUK ESTERASE 25 /ul (Abnormal) OCCULT BLOOD-UR 10 /ul (Abnormal) NITRITE UR Negative (Normal) UROBILI Normal mg/dL (Normal) PROT DIPSTX 15 mg/dL (Abnormal) pH UR 7.0 (Normal) Range: 5.0 - 8.0 SP.GR. DIPSTX 1.005 (Normal) Range: 1.002-1.030 KETONE UR Negative mg/dL (Normal) BILIRUBIN URINE Negative mg/dL (Normal) GLUCOSE, UR Normal mg/dL (Normal) CLARITY Clear (Normal) COLOR Yellow (Normal) :06 Vitamin D,25 Hydroxy Comments: [facility] [address] [place], [address] Vitamin D 25-OH 35.4 ng/mL (Normal) Comments: Vitamin D 25(OH) Status Range Deficiency <20 ng/mL (50nmol/L) Insuffciency 20 - 30 ng/mL (50 - 75 nmol/L) Sufficiency 30 - 100 ng/mL (75 - 250 nmol/L) Toxicity >100 ng/mL (>250 nmol/L) [id number]-Ttn-[id number]:23 Hemoglobin A1c Comments: [facility] [address] [place], [id number] HGB A1C 5.7 % (Normal) Range: 4.2-6.3 :11 CBC, Employee Comments: [facility] [address] [place], [address] Absolute Lymph 1.62 {X10_3/ul} (Normal) Range: 0.83-4.51 Absolute Neut 4.3 {X10_3/uL} (Normal) Range: 2.0-7.7 BASO% 0.0 % (Normal) Range: 0-1 EO% 0.0 % (Normal) Range: 0-5 MONO% 6.3 % (Normal) Range: 0-10 LY% 25.6 % (Normal) Range: 19-41 NEUT% 67.9 % (Normal) Range: 47-70 MPV 9.4 fL (Normal) Range: 6.2-12.0 PLT 363 K/mm3 (Normal) Range: 150-450 RDW SD 40.2 fL (Normal) Range: 35.1-43.9 RDW CV 13.3 % (Normal) Range: 11.6-14.6 MCHC 33.2 {g/gl} (Normal) Range: 32-36 MCH 27.7 pg (Normal) Range: 27.0-32.0 MCV 83.3 fL (Normal) Range: 81-99 HCT 39.4 % (Normal) Range: 37-47 HGB 13.1 g/dL (Normal) Range: 12.0-15.0 RBC 4.73 {M/mm3} (Normal) Range: 4.2-5.4 WBC 6.3 K/mm3 (Normal) Range: 4.4-11.0 :11 CBC, Employee Comments: [facility] [address] [place], [place], [id number] RDW SD 40.2 fL (Normal) Range: 35.1-43.9 RDW CV 13.3 % (Normal) Range: 11.6-14.6 09-Oct-20159:11 Employee Profile Comments: [facility] [address] [place], [place], [id number] LDH 181 U/L (Normal) Range: 84-246 VLDL 11 mg/dL (Normal) Range: 5-40 LDL 114 mg/dL (Normal) Range: 0-130 CHOL:HDL 3.00 (Normal) HDL 64 mg/dL (Normal) Comments: The drugs N-Acetylcysteine and Metamizole may falsely deressthis assay. Reference Range HDL <40 mg/dL Low HDL Cholesterol HDL >or= 60 mg/dL High HDL Cholesterol GAP 5 (Normal) Range: 5-15 CO2 28.0 mmol/L (Normal) Range: 21.0-32.0 CL 101 mmol/L (Normal) Range: 98-107 K 4.2 mmol/L (Normal) Range: 3.5-5.1 NA 134 mmol/L (Abnormal) Range: 136-145 TRIG 57 mg/dL (Normal) Comments: The drugs N-Acetylcysteine and Metamizole may falsely deressthis assay.Serum Triglycerides Reference Interval Normal <150 mg/dL Borderline high 150 - 199 mg/dL High 200 - 499 mg/dL Very High > or = 500 mg/dL CHOL 189 mg/dL (Normal) Comments: <200 mg/dL Desirable 200-240 mg/dL Borderline >240 mg/dL High Risk D BILI 0.11 mg/dL (Normal) Range: 0.00-0.30 T BILI 0.30 mg/dL (Normal) Range: 0.20-1.00 ALT 24 U/L (Normal) Range: 12-78 ALK P 76 U/L (Normal) Range: 50-136 AST 18 U/L (Normal) Range: 15-37 PHOS 3.7 mg/dL (Normal) Range: 2.5-4.9 CA 9.0 mg/dL (Normal) Range: 8.5-10.1 A/G 1.1 {RATIO} (Normal) Range: 0.9-2.4 GLOB 3.6 g/dL (Abnormal) Range: 2.3-3.5 ALB 3.8 g/dL (Normal) Range: 3.4-5.0 T PROT 7.4 g/dL (Normal) Range: 6.4-8.2 URIC 3.4 mg/dL (Normal) Range: 2.6-6.0 Comments: The drugs N-Acetylcysteine and Metamizole may falsely deressthis assay. BUN/CRE 25.3 {RATIO} (Abnormal) Range: 10-20 EST GFR - AA 107 mL/min (Normal) Comments: GFR Calc EST GFR 88 mL/min (Normal) Comments: Non- GFR Calc CREAT,SERUM 0.71 mg/dL (Normal) Range: 0.55-1.20 Comments: The validity of the calculated GFR AND GFRAA in patients over70 years has not been determined. Clinical correlation isessential. BUN 18 mg/dL (Normal) Range: 7-18 GLU 91 mg/dL (Normal) Range: 70-110 :11 Nicotine Urine Drug Screen Comments: [facility] [address] [facility] [place], [address] COT DRG SCREEN Negative (Normal) Comments: Cotinine is the first-stage metabolite of Nicotine. TO BE CONFIRMED (Normal) Comments: CONFIRMATORY TESTING FOR ALL POSITIVE URINE DRUG SCREENRESULTS WILL ONLY BE SENT OUT UPON PHYSICIAN ORDER.The results of Urine Drug Screen methods provide onlypreliminary analytical test results. A more specificalternate chemical method must be used in order to obtain aconfirmed analytical result. Gas chromatography/massspectrometery (GC/MS) is the preferred confirmatory method.Clinical consideration and professional judgement should beapplied to any drug of abuse test result, particularly whenpreliminary positive results are used. :11 Urinalysis, Employee Comments: How was Urine Obtained? [facility] [address] [facility] [place], [address] LEUK ESTERASE 25 /ul (Abnormal) OCCULT BLOOD-UR 10 /ul (Abnormal) NITRITE UR Negative (Normal) UROBILI Normal mg/dL (Normal) PROT DIPSTX 15 mg/dL (Abnormal) pH UR 7.0 (Normal) Range: 5.0 - 8.0 SP.GR. DIPSTX 1.010 (Normal) Range: 1.002-1.030 KETONE UR Negative mg/dL (Normal) BILIRUBIN URINE Negative mg/dL (Normal) GLUCOSE, UR Normal mg/dL (Normal) CLARITY Clear (Normal) COLOR Yellow (Normal) :54 CBC W/Diff, Auto - EPLAB Comments: [facility] [id number], [place] [address]MQT DIRECTOR REID MUHAMMAD D.O.[phone] Valley Medical Center [address] [place], [address] Only SMEAR COMMENT SCANNED (Normal) Comments: 1+ REACTIVE LYMPHS Absolute Lymph 2.04 {X10_3/uL} (Normal) Range: 0.83-4.51 Absolute Neut 4.4 {X10_3/uL} (Normal) Range: 2.0-7.7 BASO% 0.1 % (Normal) Range: 0-1 EO% 0.0 % (Normal) Range: 0-5 MONO% 6.6 % (Normal) Range: 0-10 LY% 29.7 % (Normal) Range: 19-41 NEUT% 63.6 % (Normal) Range: 47-70 MPV 6.1 fL (Abnormal) Range: 6.2-12.0 PLT 384 K/mm3 (Normal) Range: 150-450 RDW 11.3 % (Abnormal) Range: 11.6-14.6 MCHC 33.5 g/dL (Normal) Range: 32-36 MCH 27.3 pg (Normal) Range: 27.0-32.0 MCV 81.4 fL (Normal) Range: 81-99 HCT 38.7 % (Normal) Range: 37-47 HGB 13.0 g/dL (Normal) Range: 12.0-15.0 RBC 4.75 {M/mm3} (Normal) Range: 4.2-5.4 WBC 6.9 K/mm3 (Normal) Range: 4.4-11.0 :53 Basic Metabolic Profile (BMP) Comments: [facility] [address] [place], [address] GAP 8 (Normal) Range: 5-15 CO2 26.0 mmol/L (Normal) Range: 21.0-32.0 CL 99 mmol/L (Normal) Range: 98-107 K 3.8 mmol/L (Normal) Range: 3.5-5.1 NA 133 mmol/L (Abnormal) Range: 136-145 CA 8.9 mg/dL (Normal) Range: 8.5-10.1 BUN/CRE 18.8 {RATIO} (Normal) Range: 10-20 EST GFR - AA 121 mL/min (Normal) Comments: GFR Calc EST GFR 100 mL/min (Normal) Comments: Non- GFR Calc CREAT,SERUM 0.64 mg/dL (Normal) Range: 0.55-1.20 Comments: The validity of the calculated GFR AND GFRAA in patients over70 years has not been determined. Clinical correlation isessential. BUN 12 mg/dL (Normal) Range: 7-18 GLU 114 mg/dL (Abnormal) Range: 70-110 Comments: Fasting Glucose result from 110 to <126 mg/dLsuggests IMPAIRED HOMEOSTASIS per A.D.A. criteria. :53 CRP Comments: [facility] [address] [place], [place], [id number] C-REACTIVE PROT 6.43 mg/L (Abnormal) Range: 0.0-3.0 Comments: C-Reactive Protein (CRP) provides useful information for thediagnosis, therapy and monitoring of inflammatory processesand associated diseases. For the evaluation of Relative Riskfor Cardiovascular Dise ase, a High Sensitivity CRP (HSCRP)should be ordered. :53 Erythrocyte Sed Rate Comments: [facility] [address] [place], [place], [address] SED RATE 29 mm/h (Normal) Range: 0-30 :53 Lyme Antibodies,W Blot Comments: [facility] (refer to report for specific site)refer to report for address and phone number LYME IgM INTERP Negative (Normal) Comments: Note: An equivocal or positive EIA result followed by anegative Western Blot result is considered NEGATIVE. Anequivocal or positive EIA result followed by a positiveWestern Blot is considered POSITIVE b y the CDC.Positive: 2 of the following bands: 23,39 or 41Negative: No bands or banding patterns which do not meetpositive criteria.Criteria for positivity are those recommended byCDC/ASTPHLD. p23=Osp C, g32=uwunqfhhmEapd:Sera from individuals with the following may cross reactin the Lyme Western Blot assays: other spirochetal diseases(periodontal disease, leptospirosis, relapsing fever, yaws,and pinta ); connective autoimmune (Rheumatoid Arthritis andSystemic Lupus Erythematosus and also individuals withAntinuclear Antibody); other infections (Bong MountainSpotted Fever; Iwona-Pfeiffer Virus, and Cytomegalovirus). P23 Ab Present (Abnormal) P39 Ab Absent (Normal) P41 Ab Absent (Normal) LYME IgG INTERP Negative (Normal) Comments: Positive: 5 of the following Borrelia-specific bands: 18,23,28,30,39,41,45,58, 66, and 93. N egative: No bands or banding patterns which do not meet positive criteria. P18 Ab Absent (Normal) P23 Ab Absent (Normal) P28 Ab Absent (Normal) P30 Ab Absent (Normal) P39 Ab Absent (Normal) P41 Ab Present (Abnormal) P45 Ab Absent (Normal) P58 Ab Absent (Normal) P66 Ab Absent (Normal) P93 Ab Absent (Normal) [id number]:53 Lyme Screen W/Reflex WB Comments: [facility] (refer to report for specific site)refer to report for address and phone number LYME SCN INTERP REF LAB (Normal) LYME SCN AB <0.91 {ISR} (Normal) Range: 0.00-0.90 Comments: Negative <0.91 Equivocal 0.91 - 1.09 Positive >1.09Performed at: [facility] [address] [id number] Director: Ollie Shook MD, Phone: [phone] at: [facility] [address] [id number] Director: Mal Ann PhD, Phone: [phone] [id number] CDIFF (Molecular) Comments: [facility] [address] [place], [address] CDIFF See Note (Normal) Comments: Cdiff-MolecularC. Diff DNA Negative- No toxigenic C. Diff DNA Detected :35 Ova and Parasites 8623 Comments: [facility] [address] [place], [place], [address] OP See Note Comments: O + P 8623OVA AND PARASITES EXAM, ROUTINE These results were obtained using wet preparation(s) and trichrome stained smear. This test does not include testing for Crytosporidium parvum, C (Normal) yclospora, or Microsporidia. TESTING PERFORMED AT [facility]. ORIGINAL REPORT ON FILE IN LAB CONTAINS ADDITIONAL TEST SITE INFORMATION. ____ :35 Stool Lactoferrin/WBC Comments: [address] [place], [place], [address] WBCST See Note (Normal) Comments: Stool Lacto/WBCFecal WBC Lactoferrin Positive: Fecal WBC Lactoferrin present :35 Stool Occult Blood iFOB Comments: [address] [place], [place], [address] STOB See Note (Normal) Comments: STOB iFOBOccult Blood Positive ORGANISM 1: OCCULT BLOOD POSITIVE :52 CBC W/Diff, Automated Comments: [address] [place], [place], [id number] Absolute Lymph 0.81 {X10_3/ul} (Abnormal) Range: 0.83-4.51 Absolute Neut 3.5 {X10_3/uL} (Normal) Range: 2.0-7.7 IM GRAN % 0.200 % (Normal) Range: 0.0-0.9 Comments: IG% - Immature Granulocytes (promyelocytes, myelocytes andmetamyelocytes) > 1% indicates that a LEFT SHIFT is Present. BASO% 0.0 % (Normal) Range: 0-1 EO% 0.0 % (Normal) Range: 0-5 MONO% 11.4 % (Abnormal) Range: 0-10 LY% 16.8 % (Abnormal) Range: 19-41 NEUT% 71.6 % (Abnormal) Range: 47-70 MPV 10.1 fL (Normal) Range: 6.2-12.0 PLT 251 K/mm3 (Normal) Range: 150-450 RDW SD 38.8 fL (Normal) Range: 35.1-43.9 RDW CV 12.8 % (Normal) Range: 11.6-14.6 MCHC 33.8 {g/gl} (Normal) Range: 32-36 MCH 28.2 pg (Normal) Range: 27.0-32.0 MCV 83.6 fL (Normal) Range: 81-99 HCT 38.2 % (Normal) Range: 37-47 HGB 12.9 g/dL (Normal) Range: 12.0-15.0 RBC 4.57 {M/mm3} (Normal) Range: 4.2-5.4 WBC 4.8 K/mm3 (Normal) Range: 4.4-11.0 [id number]-[id number]:52 Comprehensive Metabolic Profil Comments: [facility] [address] [place], [place], [id number] GAP 9 (Normal) Range: 5-15 CO2 25.0 mmol/L (Normal) Range: 21.0-32.0 CL 100 mmol/L (Normal) Range: 98-107 K 3.8 mmol/L (Normal) Range: 3.5-5.1 NA 134 mmol/L (Abnormal) Range: 136-145 T BILI 0.30 mg/dL (Normal) Range: 0.20-1.00 ALT 28 U/L (Normal) Range: 12-78 ALK P 77 U/L (Normal) Range: 50-136 AST 25 U/L (Normal) Range: 15-37 CA 8.5 mg/dL (Normal) Range: 8.5-10.1 A/G 0.9 {RATIO} (Normal) Range: 0.9-2.4 GLOB 3.6 g/dL (Abnormal) Range: 2.3-3.5 ALB 3.3 g/dL (Abnormal) Range: 3.4-5.0 T PROT 6.9 g/dL (Normal) Range: 6.4-8.2 BUN/CRE 9.6 {RATIO} (Abnormal) Range: 10-20 EST GFR - AA 104 mL/min (Normal) Comments: GFR Calc EST GFR 86 mL/min (Normal) Comments: Non- GFR Calc CREAT,SERUM 0.73 mg/dL (Normal) Range: 0.55-1.20 Comments: The validity of the calculated GFR AND GFRAA in patients over70 years has not been determined. Clinical correlation isessential. BUN 7 mg/dL (Normal) Range: 7-18 GLU 89 mg/dL (Normal) Range: 70-110 :52 Erythrocyte Sed Rate Comments: [facility] [address] [place], [place], [id number] SED RATE 12 mm/h (Normal) Range: 0-30 :52 Thyroid Stim Hormone (TSH) Comments: [facility] [address] [place], [address] TSH 0.73 {uIU/mL} (Normal) Range: 0.358-3.74 :02 Hemoglobin A1c Comments: [facility] [address] [place], [place], [id number] HGB A1C 5.4 % (Normal) Range: 4.2-6.3 :58 CBC W/Diff, Auto - EPLAB Comments: At [facility] Outpatient [facility] [place] Medical Oncologypatients receive CBC w/auto Differential ONLY. Physicianwill place an order for a manual differential or Pathologistreview at his discretion. [facility] OUTPATIENT [facility]. [address] [place] [address] [address] GATEHOUSE ATTENDANT: REID MUHAMMAD DO PH:[phone] Deaconess Hospital [address] [place], [place], [id number] Absolute Lymph 1.27 {X10_3/uL} (Normal) Range: 0.83-4.51 Absolute Neut 4.7 {X10_3/uL} (Normal) Range: 2.0-7.7 BASO% 0.5 % (Normal) Range: 0-1 EO% 0.0 % (Normal) Range: 0-5 MONO% 6.0 % (Normal) Range: 0-10 LY% 20.0 % (Normal) Range: 19-41 NEUT% 73.6 % (Abnormal) Range: 47-70 MPV 6.4 fL (Normal) Range: 6.2-12.0 PLT 301 K/mm3 (Normal) Range: 150-450 RDW 11.4 % (Abnormal) Range: 11.6-14.6 MCHC 34.1 g/dL (Normal) Range: 32-36 MCH 29.3 pg (Normal) Range: 27.0-32.0 MCV 85.8 fL (Normal) Range: 81-99 HCT 37.3 % (Normal) Range: 37-47 HGB 12.7 g/dL (Normal) Range: 12.0-15.0 RBC 4.35 {M/mm3} (Normal) Range: 4.2-5.4 WBC 6.4 K/mm3 (Normal) Range: 4.4-11.0 [id number] Comprehensive Metabolic Profil Comments: [facility] [id number] [place], [place], [id number] GAP 2 (Abnormal) Range: 5-15 CO2 28.0 mmol/L (Normal) Range: 21.0-32.0 CL 107 mmol/L (Normal) Range: 98-107 K 4.2 mmol/L (Normal) Range: 3.5-5.1 NA 137 mmol/L (Normal) Range: 136-145 T BILI 0.30 mg/dL (Normal) Range: 0.20-1.00 ALT 29 U/L (Normal) Range: 12-78 ALK P 76 U/L (Normal) Range: 50-136 AST 17 U/L (Normal) Range: 15-37 CA 8.5 mg/dL (Normal) Range: 8.5-10.1 A/G 1.1 {RATIO} (Normal) Range: 0.9-2.4 GLOB 3.3 g/dL (Normal) Range: 2.3-3.5 ALB 3.7 g/dL (Normal) Range: 3.4-5.0 T PROT 7.0 g/dL (Normal) Range: 6.4-8.2 BUN/CRE 16.9 {RATIO} (Normal) Range: 10-20 EST GFR - AA 107 mL/min (Normal) Comments: GFR Calc EST GFR 89 mL/min (Normal) Comments: Non- GFR Calc CREAT,SERUM 0.71 mg/dL (Normal) Range: 0.55-1.20 Comments: The validity of the calculated GFR AND GFRAA in patients over70 years has not been determined. Clinical correlation isessential. BUN 12 mg/dL (Normal) Range: 7-18 GLU 85 mg/dL (Normal) Range: 70-110 :58 Lipid Profile Comments: [facility] [id number] [place], [place], [id number] VLDL 7 mg/dL (Normal) Range: 5-40 LDL 105 mg/dL (Normal) Range: 0-130 HDL 63 mg/dL (Normal) Comments: Reference Range HDL <40 mg/dL Low HDL Cholesterol HDL >or= 60 mg/dL High HDL Cholesterol TRIG 35 mg/dL (Normal) Comments: Serum Triglycerides Reference Interval Normal <150 mg/dL Borderline high 150 - 199 mg/dL High 200 - 499 mg/dL Very High > or = 500 mg/dL CHOL 175 mg/dL (Normal) Comments: <200 mg/dL Desirable 200-240 mg/dL Borderline >240 mg/dL High Risk :58 Thyroid Stim Hormone (TSH) Comments: [facility] [address] [place], [address] TSH 0.98 {uIU/mL} (Normal) Range: 0.358-3.74 :58 Urinalysis, Complete Comments: How was Urine Obtained? [facility] [address] [place], [place], [id number] MUCUS, URINE 0 SEEN {/hpf} (Normal) BACTERIA 0 SEEN {/hpf} (Normal) SQUAM EPI 0 SEEN {/hpf} (Normal) Range: 5-10 RBC-UA 0 SEEN {/hpf} (Normal) Range: 0-5 WBC 0 SEEN {/hpf} (Normal) Range: 0-5 LEUK ESTERASE Negative /ul (Normal) OCCULT BLOOD-UR Negative /ul (Normal) NITRITE UR Negative (Normal) UROBILI Normal mg/dL (Normal) PROT DIPSTX Negative mg/dL (Normal) pH UR 7.0 (Normal) Range: 5.0 - 8.0 SP.GR. DIPSTX 1.010 (Normal) Range: 1.002-1.030 KETONE UR Negative mg/dL (Normal) BILIRUBIN URINE Negative mg/dL (Normal) GLUCOSE, UR Normal mg/dL (Normal) CLARITY Clear (Normal) COLOR Yellow (Normal) [id number] Hemoglobin A1c Comments: [facility] [id number] [place], [address] HGB A1C 5.3 % (Normal) Range: 4.2-6.3 03-Svo-[id number]:52 Hemoglobin A1c Comments: Test performed at:[facility] [address] [place] [address] HGB A1C 5.6 % (Normal) Range: 4.2-6.3 Comments: ADDENDA: Review at [facility] visit :42 CBC, Employee Comments: Test performed at:[facility] [address] [place] [address] Absolute Lymph 1.31 {X10_3/ul} (Normal) Range: 0.83-4.51 Absolute Neut 3.1 {X10_3/uL} (Normal) Range: 2.0-7.7 BASO% 0.0 % (Normal) Range: 0-1 EO% 0.0 % (Normal) Range: 0-5 MONO% 5.5 % (Normal) Range: 0-10 LY% 27.9 % (Normal) Range: 19-41 NEUT% 66.4 % (Normal) Range: 47-70 MPV 9.3 fL (Normal) Range: 6.2-12.0 PLT 331 K/mm3 (Normal) Range: 150-450 RDW SD 38.4 fL (Normal) Range: 35.1-43.9 RDW CV 12.6 % (Normal) Range: 11.6-14.6 MCHC 33.5 {g/gl} (Normal) Range: 32-36 MCH 28.3 pg (Normal) Range: 27.0-32.0 MCV 84.5 fL (Normal) Range: 81-99 HCT 38.8 % (Normal) Range: 37-47 HGB 13.0 g/dL (Normal) Range: 12.0-15.0 RBC 4.59 {M/mm3} (Normal) Range: 4.2-5.4 WBC 4.7 K/mm3 (Normal) Range: 4.4-11.0 :42 Employee Profile Comments: Test performed at:[facility] [address] [place] [address] LDH 193 U/L (Normal) Range: 87-241 VLDL 12 mg/dL (Normal) Range: 5-40 LDL 88 mg/dL (Normal) Range: 0-130 HDLEMP 55 mg/dL (Normal) Comments: Reference Range HDL <40 mg/dL Low HDL Cholesterol HDL >or= 60 mg/dL High HDL Cholesterol HDL 55 mg/dL (Normal) Comments: Reference Range HDL <40 mg/dL Low HDL Cholesterol HDL >or= 60 mg/dL High HDL Cholesterol GAP 4 (Abnormal) Range: 5-15 CO2 29.0 mmol/L (Normal) Range: 21.0-32.0 CL 105 mmol/L (Normal) Range: 98-107 K 4.2 mmol/L (Normal) Range: 3.5-5.1 NA 138 mmol/L (Normal) Range: 136-145 TRIG 62 mg/dL (Normal) Range: 0-199 Comments: Serum Triglycerides Reference Interval Normal <150 mg/dL Borderline high 150 - 199 mg/dL High 200 - 499 mg/dL Very High > or = 500 mg/dL CHOL 155 mg/dL (Normal) Comments: <200 mg/dL Desirable 200-240 mg/dL Borderline >240 mg/dL High Risk D BILI 0.14 mg/dL (Normal) Range: 0.00-0.30 T BILI 0.40 mg/dL (Normal) Range: 0.00-4.00 ALT 28 U/L (Normal) Range: 12-78 ALK P 87 U/L (Normal) Range: 50-136 AST 22 U/L (Normal) Range: 15-37 PHOS 3.8 mg/dL (Normal) Range: 2.5-4.9 CA 8.6 mg/dL (Normal) Range: 8.5-10.1 A/G 1.2 {RATIO} (Normal) Range: 0.9-2.4 GLOB 3.2 g/dL (Normal) Range: 2.7-4.2 ALB 3.7 g/dL (Normal) Range: 3.4-5.0 T PROT 6.9 g/dL (Normal) Range: 6.4-8.2 URIC 3.3 mg/dL (Normal) Range: 2.6-6.0 BUN/CRE 17.1 {RATIO} (Normal) Range: 10-20 EST GFR - AA 109 mL/min (Normal) EST GFR 90 mL/min (Normal) CREAT,SERUM 0.7 mg/dL (Normal) Range: 0.6-1.0 BUN 12 mg/dL (Normal) Range: 7-18 GLU 89 mg/dL (Normal) Range: 70-110 :42 Hemoglobin A1c Comments: Test performed at:[facility] [address] [place] [address] HGB A1C 5.5 % (Normal) Range: 4.2-6.3 :42 Urinalysis, Employee Comments: Test performed at:[facility] [address] [place] [address] [id number]([phone]) LEUK ESTERASE 25 /ul (Abnormal) OCCULT BLOOD-UR 10 /ul (Abnormal) NITRITE UR Negative (Normal) UROBILI Normal mg/dL (Normal) PROT DIPSTX Negative mg/dL (Normal) pH UR 8.0 (Normal) Range: 5.0 - 8.0 SP.GR. DIPSTX 1.010 (Normal) Range: 1.002-1.030 KETONE UR Negative mg/dL (Normal) BILIRUBIN URINE Negative mg/dL (Normal) GLUCOSE, UR Normal mg/dL (Normal) CLARITY Clear (Normal) COLOR Yellow (Normal) [id number] SALUD CULTURE-OTHER (64246) Comments: PATIENT NOT FASTINGPERFORMED BY: [facility] [id number] [facility] [id number] Information: SRC:DIONE [id number] Result 1 RRF (Normal) Comments: Routine respiratory pantera Upper Respiratory Culture Final report (Normal) [id number] Rapid Strep Test, Office (54173) Rapid Strep Test, Office Negative (Normal) :06 CBC W/Diff, Automated Comments: Test performed at:[facility] [address] [place] [address] Absolute Lymph 1.35 {X10_3/ul} (Normal) Range: 0.83-4.51 Absolute Neut 3.1 {X10_3/uL} (Normal) Range: 2.0-7.7 IM GRAN % 0.200 % (Normal) Range: 0.0-0.9 Comments: IG% - Immature Granulocytes (promyelocytes, myelocytes andmetamyelocytes) > 1% indicates that a LEFT SHIFT is Present. BASO% 0.0 % (Normal) Range: 0-1 EO% 0.0 % (Normal) Range: 0-5 MONO% 7.5 % (Normal) Range: 0-10 LY% 28.0 % (Normal) Range: 19-41 NEUT% 64.3 % (Normal) Range: 47-70 MPV 9.9 fL (Normal) Range: 6.2-12.0 PLT 318 K/mm3 (Normal) Range: 150-450 RDW SD 39.0 fL (Normal) Range: 35.1-43.9 RDW CV 13.0 % (Normal) Range: 11.6-14.6 MCHC 33.1 {g/gl} (Normal) Range: 32-36 MCH 27.5 pg (Normal) Range: 27.0-32.0 MCV 83.2 fL (Normal) Range: 81-99 HCT 40.2 % (Normal) Range: 37-47 HGB 13.3 g/dL (Normal) Range: 12.0-15.0 RBC 4.83 {M/mm3} (Normal) Range: 4.2-5.4 WBC 4.8 K/mm3 (Normal) Range: 4.4-11.0 :06 Comprehensive Metabolic Profil Comments: Test performed at:[facility] [address] [facility] [place] [address] GAP 3 (Abnormal) Range: 5-15 CO2 30.0 mmol/L (Normal) Range: 21.0-32.0 CL 102 mmol/L (Normal) Range: 98-107 K 4.0 mmol/L (Normal) Range: 3.5-5.1 NA 135 mmol/L (Abnormal) Range: 136-145 T BILI 0.40 mg/dL (Normal) Range: 0.00-4.00 ALT 27 U/L (Normal) Range: 12-78 ALK P 80 U/L (Normal) Range: 50-136 AST 19 U/L (Normal) Range: 15-37 CA 8.7 mg/dL (Normal) Range: 8.5-10.1 A/G 1.1 {RATIO} (Normal) Range: 0.9-2.4 GLOB 3.4 g/dL (Normal) Range: 2.7-4.2 ALB 3.7 g/dL (Normal) Range: 3.4-5.0 T PROT 7.1 g/dL (Normal) Range: 6.4-8.2 BUN/CRE 13.3 {RATIO} (Normal) Range: 10-20 EST GFR - AA 82 mL/min (Normal) EST GFR 68 mL/min (Normal) CREAT,SERUM 0.9 mg/dL (Normal) Range: 0.6-1.0 BUN 12 mg/dL (Normal) Range: 7-18 GLU 91 mg/dL (Normal) Range: 70-110 17-Rnc-12703:06 Hemoglobin A1c Comments: Test performed at:[facility] [address] [place] [address] HGB A1C 5.6 % (Normal) Range: 4.2-6.3 34-Cyk-41041:06 Lipid Profile Comments: Test performed at:[facility] [address] [facility] [place] [address] VLDL 13 mg/dL (Normal) Range: 5-40 LDL 106 mg/dL (Normal) Range: 0-130 HDL 68 mg/dL (Normal) Comments: Reference Range HDL <40 mg/dL Low HDL Cholesterol HDL >or= 60 mg/dL High HDL Cholesterol TRIG 66 mg/dL (Normal) Range: 0-199 Comments: Serum Triglycerides Reference Interval Normal <150 mg/dL Borderline high 150 - 199 mg/dL High 200 - 499 mg/dL Very High > or = 500 mg/dL CHOL 187 mg/dL (Normal) Comments: <200 mg/dL Desirable 200-240 mg/dL Borderline >240 mg/dL High Risk :06 Microalb:Creat Ratio,Random UR Comments: Test performed at:[facility] [address] [place] [address] MALB:CREAT 6.6 {mg/g_CRE} (Normal) MICROALBUMIN,UR 13.2 mg/L (Normal) UR CREAT 197.2 mg/dL (Normal) 76-Pfq-94952:06 Thyroid Stim Hormone (TSH) Comments: Test performed at:[facility] [address] [place] [address] TSH 0.97 {uIU/mL} (Normal) Range: 0.358-3.74 :06 Urinalysis, Complete Comments: How was Urine Obtained? CLEAN CATCHTest performed at:[facility] [address] [place] [id number] MUCUS, URINE 0 SEEN {/hpf} (Normal) BACTERIA 0 SEEN {/hpf} (Normal) SQUAM EPI 0-5 SEEN {/hpf} Range: 5-10 (Normal) RBC-UA 0 SEEN {/hpf} (Normal) Range: 0-5 WBC 0-5 SEEN {/hpf} Range: 0-5 (Normal) LEUK ESTERASE Negative /ul (Normal) OCCULT BLOOD-UR Negative /ul (Normal) NITRITE UR Negative (Normal) UROBILI Normal mg/dL (Normal) PROT DIPSTX Negative mg/dL (Normal) pH UR 8.0 (Normal) Range: 5.0 - 8.0 SP.GR. DIPSTX 1.010 (Normal) Range: 1.002-1.030 KETONE UR Negative mg/dL (Normal) BILIRUBIN URINE Negative mg/dL (Normal) GLUCOSE, UR Normal mg/dL (Normal) CLARITY Clear (Normal) COLOR Yellow (Normal) [id number] CRP < 2.90 mg/L (Normal) Range: 0.0-3.0 Comments: C-Reactive Protein (CRP) provides useful information for thediagnosis, therapy and monitoring of inflammatory processesand associated diseases. For the evaluation of Relative Riskfor Cardiovascular Dise ase, a High Sensitivity CRP (HSCRP)should be ordered. [id number] SED tSEDRATE 8 mm/h (Normal) Range: 0-30 [id number]-Acw-556315:40 CRE GFRAA 95 mL/min (Normal) GFR 78 mL/min (Normal) CREAT 0.8 mg/dL (Normal) Range: 0.6-1.0 :55 BRENDAN Negative (Normal) Comments: Performed at: - [facility] Director: Natanael Archer MD, Phone: [phone] :[phone] CBCEM Comments: This patient requested that [facility] [employer] send to you acopy of their Yearly Employee Health Risk Assessment.A copy of this report is also given to the patient so theycan follow up with your office if they choose. ALC 1.34 {X10_3/ul} (Normal) Range: 0.83-4.51 ANC 2.7 {X10_3/uL} (Normal) Range: 2.0-7.7 tB% 0.0 % (Normal) Range: 0-1 tE% 0.0 % (Normal) Range: 0-5 tM% 7.9 % (Normal) Range: 0-10 tL% 30.3 % (Normal) Range: 19-41 tN% 61.8 % (Normal) Range: 47-70 MPV 9.7 fL (Normal) Range: 6.2-12.0 PLT 291 K/mm3 (Normal) Range: 150-450 RDWSD 37.7 fL (Normal) Range: 35.1-43.9 RDWCV 12.5 % (Normal) Range: 11.6-14.6 MCHC 33.2 {g/gl} (Normal) Range: 32-36 MCH 28.1 pg (Normal) Range: 27.0-32.0 MCV 84.5 fL (Normal) Range: 81-99 HCT 35.5 % (Abnormal) Range: 37-47 HGB 11.8 g/dL (Abnormal) Range: 12.0-15.0 RBC 4.20 {M/mm3} (Normal) Range: 4.2-5.4 WBC 4.4 K/mm3 (Normal) Range: 4.4-11.0 :55 CCP 12 {units} (Normal) Range: 0-19 Comments: Negative <20Weak positive 20 - 39Moderate positive 40 - 59Strong positive >59Performed at: - [facility] [id number] Director: Ollie Shook MD, Phone: [phone] :[phone] CRP < 2.90 mg/L (Normal) Range: 0.0-3.0 Comments: C-Reactive Protein (CRP) provides useful information for thediagnosis, therapy and monitoring of inflammatory processesand associated diseases. For the evaluation of Relative Riskfor Cardiovascular Dise ase, a High Sensitivity CRP (HSCRP)should be ordered. :55 EMP Comments: This patient requested that [facility] [employer] send to you acopy of their Yearly Employee Health Risk Assessment.A copy of this report is also given to the patient so theycan follow up with your office if they choose. LDH 212 U/L (Normal) Range: 87-241 VLDL 10 mg/dL (Normal) Range: 5-40 LDL 101 mg/dL (Normal) Range: 0-130 HDLEMP 65 mg/dL (Normal) Comments: Reference RangeHDL <40 mg/dL Low HDL CholesterolHDL >or= 60 mg/dL High HDL Cholesterol HDL 65 mg/dL (Normal) Comments: Reference RangeHDL <40 mg/dL Low HDL CholesterolHDL >or= 60 mg/dL High HDL Cholesterol GAP 6 (Normal) Range: 5-15 CO2 28.0 mmol/L (Normal) Range: 21.0-32.0 CL 103 mmol/L (Normal) Range: 98-107 K 4.1 mmol/L (Normal) Range: 3.5-5.1 NA 137 mmol/L (Normal) Range: 136-145 TRIG 50 mg/dL (Normal) Range: 0-199 Comments: Serum Triglycerides Reference IntervalNormal <150 mg/dLBorderline high 150 - 199 mg/dLHigh 200 - 499 mg/ dLVery High > or = 500 mg/dL CHOL 176 mg/dL (Normal) Comments: <200 mg/dL Gwiwlwzbb752-679 mg/dL Borderline>240 mg/dL High Risk BID 0.11 mg/dL (Normal) Range: 0.00-0.30 BIT 0.30 mg/dL (Normal) Range: 0.00-1.00 ALT 25 U/L (Normal) Range: 12-78 ALK 77 U/L (Normal) Range: 45-117 AST 21 U/L (Normal) Range: 15-37 PHOS 3.7 mg/dL (Normal) Range: 2.5-4.9 CA 9.2 mg/dL (Normal) Range: 8.5-10.1 AG 1.2 {RATIO} (Normal) Range: 0.9-2.4 GLOB 3.2 g/dL (Normal) Range: 2.7-4.2 ALB 3.7 g/dL (Normal) Range: 3.4-5.0 TPROT 6.9 g/dL (Normal) Range: 6.4-8.2 URIC 3.7 mg/dL (Normal) Range: 2.6-6.0 BC 21.4 {RATIO} (Abnormal) Range: 10-20 GFRAA 109 mL/min (Normal) GFR 90 mL/min (Normal) CREAT 0.7 mg/dL (Normal) Range: 0.6-1.0 BUN 15 mg/dL (Normal) Range: 7-18 GLU 86 mg/dL (Normal) Range: 70-110 :55 RF < 10.0 {IU/mL} (Normal) :55 SED tSEDRATE 9 mm/h (Normal) Range: 0-30 :55 UAEM Comments: This patient requested that [facility] [employer] send to you acopy of their Yearly Employee Health Risk Assessment.A copy of this report is also given to the patient so theycan follow up with your office if they choose. PERNELL 25 /ul (Abnormal) UOB Negative /ul (Normal) KATELYN Negative (Normal) UROBU Normal mg/dL (Normal) uPROTU Negative mg/dL (Normal) ZAIN 7.0 (Normal) Range: 5.0 - 8.0 SGU 1.005 (Normal) Range: 1.002-1.030 KETU Negative mg/dL (Normal) BILIU Negative mg/dL (Normal) GLUR Normal mg/dL (Normal) UCLAR Clear (Normal) UCOL Yellow (Normal) :30 CRE GFR 108 mL/min (Normal) GFRAA 131 mL/min (Normal) CREAT 0.6 mg/dL (Normal) Range: 0.6-1.0 :27 Blood Glucose , Office (33001) Blood Glucose , Office 84 (Normal) Comments: not fasting :27 HgA1C , Office (23445) HgA1C , Office 5.5 % (Normal) Range: 4.6 - 7.1 :49 CBCD ANC 3.2 {X10_3/uL} (Normal) Range: 2.0-7.7 IG% 0.000 % (Normal) Range: 0.0-0.9 Comments: IG% - Immature Granulocytes (promyelocytes, myelocytes andmetamyelocytes) > 1% indicates that a LEFT SHIFT is Present. B% 0.0 % (Normal) Range: 0-1 E% 0.0 % (Normal) Range: 0-5 M% 7.4 % (Normal) Range: 0-10 L% 28.7 % (Normal) Range: 19-41 N% 63.9 % (Normal) Range: 47-70 MPV 9.7 fL (Normal) Range: 6.2-12.0 PLT 320 K/mm3 (Normal) Range: 150-450 RDWSD 38.3 fL (Normal) Range: 35.1-43.9 RDWCV 12.5 % (Normal) Range: 11.6-14.6 MCHC 34.4 {g/gl} (Normal) Range: 32-36 MCH 29.2 pg (Normal) Range: 27.0-32.0 MCV 85.0 fL (Normal) Range: 81-99 HCT 39.0 % (Normal) Range: 37-47 HGB 13.4 g/dL (Normal) Range: 12.0-15.0 RBC 4.59 {M/mm3} (Normal) Range: 4.2-5.4 WBC 5.0 K/mm3 (Normal) Range: 4.4-11.0 :49 CMP GAP 5 (Normal) Range: 5-15 CO2 29.0 mmol/L (Normal) Range: 21.0-32.0 CL 103 mmol/L (Normal) Range: 98-107 K 4.0 mmol/L (Normal) Range: 3.5-5.1 NA 137 mmol/L (Normal) Range: 136-145 BIT 0.40 mg/dL (Normal) Range: 0.00-1.00 ALT 27 U/L (Normal) Range: 12-78 ALK 78 U/L (Normal) Range: 45-117 AST 20 U/L (Normal) Range: 15-37 CA 9.2 mg/dL (Normal) Range: 8.5-10.1 AG 1.2 {RATIO} (Normal) Range: 0.9-2.4 GLOB 3.3 g/dL (Normal) Range: 2.7-4.2 ALB 4.0 g/dL (Normal) Range: 3.4-5.0 TPROT 7.3 g/dL (Normal) Range: 6.4-8.2 BC 12.9 {RATIO} (Normal) Range: 10-20 GFRAA 110 mL/min (Normal) GFR 91 mL/min (Normal) CREAT 0.7 mg/dL (Normal) Range: 0.6-1.0 BUN 9 mg/dL (Normal) Range: 7-18 GLU 92 mg/dL (Normal) Range: 70-110 :49 FE 58 ug/dL (Normal) Range: 50-170 :49 MORENA 15 ng/mL (Normal) Range: 8-252 :49 LIPID LDL 95 mg/dL (Normal) Range: 0-130 VLDL 12 mg/dL (Normal) Range: 5-40 CHOL 172 mg/dL (Normal) Comments: <200 mg/dL Fahhnmeyk831-244 mg/dL Borderline>240 mg/dL High Risk HDL 65 mg/dL (Normal) Comments: Reference RangeHDL <40 mg/dL Low HDL CholesterolHDL >or= 60 mg/dL High HDL Cholesterol TRIG 60 mg/dL (Normal) Range: 0-199 Comments: Serum Triglycerides Reference IntervalNormal <150 mg/dLBorderline high 150 - 199 mg/dLHigh 200 - 499 mg/ dLVery High > or = 500 mg/dL :49 MIACRE tMICROCREAT 11.5 {mg/g_CRE} (Normal) MIALB 21.2 mg/L (Normal) CREU 183.2 mg/dL (Normal) :49 TIBC 429 ug/dL (Normal) Range: 250-450 :49 TSH 1.11 {uIU/mL} (Normal) Range: 0.358-3.74 :12 HgA1C , Office (04152) HgA1C , Office 5.5 % (Normal) Range: 4.6 - 7.1 :12 Blood Glucose , Office (47436) Blood Glucose , Office 100 (Normal) :28 FE 59 ug/dL (Normal) Range: 50-170 :28 MORENA 28 ng/mL (Normal) Range: 8-252 :28 TIBC 390 ug/dL (Normal) Range: 250-450 :17 B12 580 pg/mL (Normal) Range: 211-911 Comments: Effective 2012:17 CBCD ANC 3.7 3/uL (Normal) Range: 2.0-7.7 IG% 0.00 % (Normal) Range: 0.0-0.0 B% 0.0 % (Normal) Range: 0-1 E% 0.0 % (Normal) Range: 0-5 M% 8.8 % (Normal) Range: 0-10 L% 26.5 % (Normal) Range: 19-41 N% 64.7 % (Normal) Range: 47-70 MPV 9.6 fL (Normal) Range: 6.2-12.0 PLT 315 K/mm3 (Normal) Range: 150-450 RDWSD 35.7 fL (Normal) Range: 35.1-43.9 RDWCV 12.6 % (Normal) Range: 11.6-14.6 MCHC 32.0 g/dL (Normal) Range: 32-36 MCH 25.6 pg (Abnormal) Range: 27.0-32.0 MCV 80.1 fL (Abnormal) Range: 81-99 HCT 35.0 % (Abnormal) Range: 37-47 HGB 11.2 g/dL (Abnormal) Range: 12.0-15.0 RBC 4.37 {M/mm3} (Normal) Range: 4.2-5.4 WBC 5.7 {k/mm3} (Normal) Range: 4.4-11.0 :17 MARILY DIRECT TRINIDAD= NEG w/POLYSPECIFIC (Normal) :17 FE 38 ug/dL (Abnormal) Range: 50-170 :17 MORENA 6 ng/mL (Abnormal) Range: 8-252 :17 FOL 19.00 ng/mL (Abnormal) Range: 3.1-17.5 :17 LDH 188 U/L (Normal) Range: 87-241 :17 METHYL 113 nmol/L (Normal) Range: 73-376 Comments: The reference range for methylmalonic acid has been set at+3sd above the mean for healthy blood bank donors. In theclinical assessment of patients with megaloblastic anemiasa cutoff of +3sd provides gre ater specificity in thediagnosis of the vitamin deficiency states, despite thesacrifice of some sensitivity.Performed at: - [facility] [id number] Director: Ollie Shook MD, Phone: [phone] RETIC 1.09 % (Normal) Range: 0.5-1.5 :17 TIBC 474 ug/dL (Abnormal) Range: 250-450 :56 HgA1C , Office (71381) HgA1C , Office 5.1 % (Normal) Range: 4.6 - 7.1 :56 Blood Glucose , Office (16319) Blood Glucose , Office 105 (Normal) :15 CBCMD ANC 3.5 3/uL (Normal) Range: 2.0-7.7 IG% 0.20 % (Abnormal) Range: 0.0-0.0 B% 0.0 % (Normal) Range: 0-1 E% 0.0 % (Normal) Range: 0-5 M% 5.7 % (Normal) Range: 0-10 L% 31.4 % (Normal) Range: 19-41 N% 62.7 % (Normal) Range: 47-70 MPV 9.8 fL (Normal) Range: 6.2-12.0 PLT 323 K/mm3 (Normal) Range: 150-450 RDWSD 38.0 fL (Normal) Range: 35.1-43.9 MCHC 31.9 g/dL (Abnormal) Range: 32-36 RDWCV 12.7 % (Normal) Range: 11.6-14.6 MCH 26.1 pg (Abnormal) Range: 27.0-32.0 MCV 81.7 fL (Normal) Range: 81-99 HCT 33.5 % (Abnormal) Range: 37-47 HGB 10.7 g/dL (Abnormal) Range: 12.0-15.0 RBC 4.10 {M/mm3} (Abnormal) Range: 4.2-5.4 WBC 5.6 {k/mm3} (Normal) Range: 4.4-11.0 :24 CBCMD ANC 3.4 3/uL (Normal) Range: 2.0-7.7 IG% 0.20 % (Abnormal) Range: 0.0-0.0 B% 0.0 % (Normal) Range: 0-1 E% 0.0 % (Normal) Range: 0-5 M% 7.7 % (Normal) Range: 0-10 L% 26.3 % (Normal) Range: 19-41 N% 65.8 % (Normal) Range: 47-70 MPV 10.1 fL (Normal) Range: 6.2-12.0 PLT 316 K/mm3 (Normal) Range: 150-450 RDWSD 37.3 fL (Normal) Range: 35.1-43.9 RDWCV 12.5 % (Normal) Range: 11.6-14.6 MCHC 31.9 g/dL (Abnormal) Range: 32-36 MCH 26.1 pg (Abnormal) Range: 27.0-32.0 MCV 81.8 fL (Normal) Range: 81-99 HCT 35.4 % (Abnormal) Range: 37-47 HGB 11.3 g/dL (Abnormal) Range: 12.0-15.0 RBC 4.33 {M/mm3} (Normal) Range: 4.2-5.4 WBC 5.2 {k/mm3} (Normal) Range: 4.4-11.0 :24 CMP GAP 8 (Normal) Range: 5-15 CO2 28.0 mmol/L (Normal) Range: 21.0-32.0 CL 107 mmol/L (Normal) Range: 98-107 K 4.3 mmol/L (Normal) Range: 3.5-5.1 NA 143 mmol/L (Normal) Range: 136-145 BIT 0.30 mg/dL (Normal) Range: 0.00-1.00 ALT 26 U/L (Normal) Range: 12-78 ALK 84 U/L (Normal) Range: 50-136 AST 20 U/L (Normal) Range: 15-37 CA 9.0 mg/dL (Normal) Range: 8.5-10.1 AG 1.2 {RATIO} (Normal) Range: 0.9-2.4 ALB 3.8 g/dL (Normal) Range: 3.4-5.0 GLOB 3.1 g/dL (Normal) Range: 2.7-4.2 TPROT 6.9 g/dL (Normal) Range: 6.4-8.2 BC 17.1 {RATIO} (Normal) Range: 10-20 GFR 91 mL/min (Normal) GFRAA 110 mL/min (Normal) CREAT 0.7 mg/dL (Normal) Range: 0.6-1.0 BUN 12 mg/dL (Normal) Range: 7-18 GLU 82 mg/dL (Normal) Range: 70-110 :24 LIPID HDL 63 mg/dL (Normal) Comments: Reference RangeHDL <40 mg/dL Low HDL CholesterolHDL >or= 60 mg/dL High HDL Cholesterol LDL 93 mg/dL (Normal) Range: 0-130 TRIG 82 mg/dL (Normal) Comments: Serum Triglycerides Reference IntervalNormal <150 mg/dLBorderline high 150 - 199 mg/dLHigh 200 - 499 mg/ dLVery High > or = 500 mg/dL VLDL 16 mg/dL (Normal) Range: 5-40 CHOL 172 mg/dL (Normal) Comments: <200 mg/dL Khcebbtvz747-368 mg/dL Borderline>240 mg/dL High Risk :24 MIACRE tMICROCREAT 8.4 {mg/g_CRE} (Normal) MIALB 13.0 mg/L (Normal) CREU 153.6 mg/dL (Normal) :24 TSH 1.37 {uIU/mL} (Normal) Range: 0.358-3.74 :24 [facility] UBAC RARE {/hpf} (Normal) UMUC 1+ {/hpf} (Normal) UEPIS 0 SEEN {/hpf} (Normal) Range: 5-10 URBC 0 SEEN {/hpf} (Normal) Range: 0-5 UWBC 0-5 SEEN {/hpf} (Normal) Range: 0-5 PERNELL Negative /ul (Normal) KATELYN Negative (Normal) UOB Negative /ul (Normal) UROBU Normal mg/dL (Normal) uPROTU Negative mg/dL (Normal) ZAIN 8 (Normal) Range: 5.0 - 8.0 SGU 1.010 (Normal) Range: 1.002-1.030 KETU Negative mg/dL (Normal) BILIU Negative mg/dL (Normal) GLUR Normal mg/dL (Normal) UCLAR Clear (Normal) UCOL Yellow (Normal) :00 HgA1C , Office (26189) HgA1C , Office 5.3 % (Normal) Range: 4.6 - 7.1 :00 Blood Glucose , Office (47394) Blood Glucose , Office 100 (Normal) :53 GALLBLADDER Radiology Report See Note (Normal) Comments: PROCEDURE: ABDOMINAL ULTRASOUND - RIGHT UPPER QUADRANT REASON FOR VISIT: Female, 61 years old. Right upper quadrant pain. TECHNIQUE: Ultrasound evaluation of the right upper quadrant wasperformed with real-time and static betancourt-scale imaging. TECHNICAL QUALITY: Adequate. COMPARISON: None. FINDINGS: Liver: The liver measures 13.9 cm. There is normal echogenicity of theliver. The bile duct s are within normal limits. There is hepatic colorflow. The direction of portal flow is hepatopetal. There is nodemonstrated mass lesion. Gallbladder: Normal distended gallbladder. The gallbladder wallmeasures2.0 mm. There is a negative sonographic Mckee's sign. There is nopericholecystic fluid. There are multiple echogenic structures withinthegallbladder, consistent with multiple gallstones . Common Bile Duct (C.B.D.): The common bile duct measures 4.4 mm. Pancreas: Normal size of the head, body and tail of the pancreas.Thereis normal echogenicity of the pancreas. There is no demonst ratedpancreatic mass or cyst. Right Kidney: Normal size of the right kidney. The right prpukycitrwhcw93.9 cm. Normal renal cortex. The right cortex measures 2.1 cm. Thereisno demonstrated renal mas s or cyst. There is no right hydronephrosis. IMPRESSION:Multiple gallstones. Signed:Win Vizcaino M.D.February 02, 2012 at 10:15:03 AM [id number] Signed GP/GP If you are the [facility] physician and would like to consult with theradiologist who provided this interpretation, please contact Justyn Razo at [phone]. If this radiologist is unavailable, youwill be d irected to another radiologist to assist. If you are a patient with a question regarding this report, pleasecontactyour referring physician directly. Professional Interpretation Provided By: [employer] , Phone , These documents contain legally protected and confidential healthinformation intended only for the use of the individual or entity namedabove. If you are not the intended recipient, you are hereby notifiedthatany disclosure, copying, distribution, or other use of these documents isstrictly prohibited. If you have received this information in error,pleasenotify t he sender immediately and arrange for the return or destructionofthese documents. Dictated on 02/02/12 0905 by Charis VILLELA,Noahranscribed on 02/02/12 1019 by ITS IMPORTSign by Charis VILLELA,Jamie thornton on 02/02/12 1020 Sign by: Win Vizcaino MD 35-Fcg-54065:55 CBCMD RBCM NORM C+C {NORMAL} (Normal) PE ADEQUATE (Normal) MON 6 % (Normal) Range: 0-10 LYMPH 18 % (Abnormal) Range: 19-41 BAND 1 % (Normal) Range: 0-5 PMN 75 % (Abnormal) Range: 47-70 EDUARD 100 (Normal) ANC 3.8 3/uL (Normal) Range: 2.0-7.7 PLT 309 K/mm3 (Normal) Range: 150-450 RDW 12.9 % (Normal) Range: 11.6-14.6 MCHC 33.0 g/dL (Normal) Range: 32-36 MCH 28.4 pg (Normal) Range: 27.0-32.0 MCV 86.0 fL (Normal) Range: 81-99 HCT 39.1 % (Normal) Range: 37-47 HGB 12.9 g.dL (Normal) Range: 12.0-15.0 RBC 4.55 {M/mm3} (Normal) Range: 4.2-5.4 WBC 5.4 K/mm3 (Normal) Range: 4.4-11.0 :55 CMP GAP 7 (Normal) Range: 5-15 CO2 29.0 mmol/L (Normal) Range: 21.0-32.0 CL 101 mmol/L (Normal) Range: 98-107 K 3.9 mmol/L (Normal) Range: 3.5-5.1 NA 137 mmol/L (Normal) Range: 136-145 BIT 0.40 mg/dL (Normal) Range: 0.00-1.00 ALT 28 U/L (Normal) Range: 12-78 ALK 73 U/L (Normal) Range: 50-136 AST 17 U/L (Normal) Range: 15-37 CA 9.3 mg/dL (Normal) Range: 8.5-10.1 AG 1.2 {RATIO} (Normal) Range: 0.9-2.4 GLOB 3.3 g/dL (Normal) Range: 2.7-4.2 ALB 3.9 g/dL (Normal) Range: 3.4-5.0 TPROT 7.2 g/dL (Normal) Range: 6.4-8.2 BC 12.5 {RATIO} (Normal) Range: 10-20 GFRAA 95 mL/min (Normal) GFR 78 mL/min (Normal) CREAT 0.8 mg/dL (Normal) Range: 0.6-1.0 BUN 10 mg/dL (Normal) Range: 7-18 GLU 82 mg/dL (Normal) Range: 70-110 :55 CUUR URC See Note {CFU/mL} (Normal) Comments: COLONY COUNT 1000-10,000 :55 SED tSEDRATE 9 mm/h (Normal) Range: 0-30 :33 URINE SALUD CULTURE (FIDEL Comments: PATIENT NOT FASTINGPERFORMED BY: [facility] Wvrkwf[address] RoadDublRockcastle Regional Hospital [id number] Information: SRC:UR [id number] COL COUNT) ([id number]) Antimicrobial MIHEAD (Normal) Comments: S = Susceptible; I = Intermediate; R = Resistant P = Positive; N = Negative MICS are expressed in micrograms per mL Antibiotic RSLT#1 RSLT#2 Susceptibility RSLT#3 RSLT#4Amoxicillin/Clavulanic Acid SAmpicillin SCefazolin SCefepime SCeftriaxone SCefuroxime SCephalothin SCiprofloxacin SESBL NErtapenem SGentamicin SImipenem S Levofloxacin SNitrofurantoin SPiperacillin STetracycline STobramycin STrimethoprim/Sulfa S Result 1 Escherichia coli Comments: 400 Colonies/mL (Normal) Urine Final report Culture,Comprehensive (Normal) :08 Urinalysis, Office (06241) UA - BILIRUBIN Negative (Normal) UA - BLOOD Hemolyzed Trace (Normal) UA - GLUCOSE Negative (Normal) UA - KETONES Negative mg/dL (Normal) UA - LEUKOCYTE ESTERASE Trace (Normal) UA - NITRITE Negative (Normal) UA - PH 7.5 (Normal) UA - PROTEIN Negative mg/dL (Normal) UA - SPECIFIC GRAVITY 1.010 (Normal) URINE UROBILINGN FIDEL TIMED Normal mg/dL (Normal) :51 HgA1C , Office (08922) HgA1C , Office 5.6 % (Normal) Range: 4.6 - 7.1 :51 Blood Glucose , Office (47814) Blood Glucose , Office 85 (Normal) :53 FOOT,MIN 3 VIEWS Radiology Report See Note (Normal) Comments: PROCEDURE: X-RAY - LEFT FOOT CLINICAL: Female, 61 years old. Pain along the fifth digit followinginjury. TECHNIQUE: Three views of the foot. COMPARISON: None. FINDINGS:Normal talus, calcaneus, and tarsal bones. Normal visualized subtalar, talonavicular, calcaneocuboid, tarsal andtarsometatarsal articulations. Normal metatarsi. Normal metatarsophalangeal joint of the great toe. Normal tibial andfibular sesamoid bones. Normal interphalangeal joint of the great toe.Normal phalanges of the great toe. Normal second through fifth metatarsophalangeal joints. Normalinterphalangeal joints of the lesser toes. There is a nondisplacedobliquefracture through the mid-portion of the proximal phalanx of the fifthtoe. Soft tissue swelling. IMPRESSION:Nondisplaced oblique fracture through the midportio n of the proximalphalanx of the fifth toe. Signed:Win Vizcaino M.D.September 17, 2011 at 4:15:11 PM [id number] Signed GP/GP If you are the referring physician and would like to cons ult with theradiologist who provided this interpretation, please contact Justyn Razo at [phone]. If this radiologist is unavailable, youwill be directed to another radiologist to assist . If you are a patient with a question regarding this report, pleasecontactyour referring physician directly. Professional Interpretation Provided By: [employer], Phone , Dictated on 09/17/11 1549 by Rowena Vizcaino MDribed on 09/17/11 1621 by ITS IMPORTSign by Win Vizcaino MD on 09/17/11 1622 Sign by: __ Win Vizcaino MD 30-Jul-2011 BID 0.11 mg/dL Range: 0.00-0.30 7:44 (Normal) 35-Bmw-97826:44 CBCMD RBCM NORM C+C {NORMAL} (Normal) PE ADEQUATE (Normal) MON 5 % (Normal) Range: 0-10 LYMPH 27 % (Normal) Range: 19-41 PMN 68 % (Normal) Range: 47-70 EDUARD 100 (Normal) ANC 3.1 3/uL (Normal) Range: 2.0-7.7 PLT 304 K/mm3 (Normal) Range: 150-450 RDW 14.4 % (Normal) Range: 11.6-14.6 MCHC 34.7 g/dL (Normal) Range: 32-36 MCH 28.7 pg (Normal) Range: 27.0-32.0 MCV 82.7 fL (Normal) Range: 81-99 HCT 36.1 % (Abnormal) Range: 37-47 HGB 12.6 g/dL (Normal) Range: 12.0-16.0 RBC 4.37 {M/mm3} (Normal) Range: 4.2-5.4 WBC 4.5 K/mm3 (Normal) Range: 4.4-11.0 :44 MORENA 9 ng/mL (Normal) Range: 8-252 :44 IBC %ISAT 13.8 % (Abnormal) Range: 15.0-55.0 FE 64 ug/dL (Normal) Range: 50-170 TIBC 464 ug/dL (Abnormal) Range: 250-450 :44 MIACRE tMICROCREAT 14.2 {mg/g_CRE} (Normal) MIALB 11.9 mg/L (Normal) CREU 83.7 mg/dL (Normal) :44 TSH 1.03 {uIU/mL} (Normal) Range: 0.358-3.74 :44 UAC UMUC 0 SEEN {/hpf} (Normal) UBAC 0 SEEN {/hpf} (Normal) UEPIS 0-5 SEEN {/hpf} (Normal) Range: 5-10 URBC 0 SEEN {/hpf} (Normal) Range: 0-5 UWBC 0 SEEN {/hpf} (Normal) Range: 0-5 PERNELL NEGATIVE (Normal) UOB NEGATIVE (Normal) KATELYN NEGATIVE (Normal) UROBU 0.2 EU/dl (Normal) Range: 0.2 - 1.0 uPROTU NEGATIVE (Normal) ZAIN 6.0 (Normal) Range: 5.0-8.0 SGU 1.015 (Normal) Range: 1.002-1.030 KETU NEGATIVE mg/dL (Normal) BILIU NEGATIVE (Normal) GLUR NEGATIVE (Normal) UCLAR CLEAR (Normal) UCOL STRAW (Normal) :18 HgA1C , Office (98145) HgA1C , Office 5.6 % (Normal) Range: 4.6 - 7.1 :18 Blood Glucose , Office (26648) Blood Glucose , Office 108 (Normal) :12 Microscopic Examination Comments: PATIENT WAS FASTINGPERFORMED BY: [facility] [place] [id number] Bacteria Few (Normal) Mucus Threads Present (Normal) Epithelial Cells (non renal) 0-10 {/hpf} (Normal) Range: 0 - 10 RBC 0-3 {/hpf} (Normal) Range: 0 - 3 WBC 0-5 {/hpf} (Normal) Range: 0 - 5 :12 Vitamin D Hydroxy (09124) Comments: PATIENT WAS FASTINGPERFORMED BY: [employer] [facility] [address] [place] [id number] Vitamin D, 25-Hydroxy 64.8 ng/mL (Normal) Range: 32.0-100.0 Comments: Recent studies consider the lower limit of 32.0 ng/mL to be athreshold for optimal health.Lion AGGARWAL. J Nutr. 2004;135(2):317-22. :12 LIPID PANEL (99958) Comments: PATIENT WAS FASTINGPERFORMED BY: [facility] [address] EdPuzzleC[facility] [id number] LDL/HDL Ratio 1.5 {ratio_units} (Normal) Range: 0.0-3.2 LDL Cholesterol Calc 97 mg/dL (Normal) Range: 0-99 VLDL Cholesterol Cl 10 mg/dL (Normal) Range: 5-40 HDL Cholesterol 66 mg/dL (Normal) Comments: According to ATP-III Guidelines, HDL-C >59 mg/dL is considered anegative risk factor for CHD. Triglycerides 51 mg/dL (Normal) Range: 0-149 Cholesterol, Total 173 mg/dL (Normal) Range: 100-199 :12 TSH (37145) Comments: PATIENT WAS FASTINGPERFORMED BY: [facility] Yauoho7831 [facility] [id number] TSH 1.160 {uIU/mL} (Normal) Range: 0.450-4.500 :12 URINALYSIS, W/ MICRO (82475) Comments: PATIENT WAS FASTINGPERFORMED BY: [employer] [id number] Microscopic Examination See below: (Normal) Microscopic Examination MICRON (Normal) Comments: Microscopic follows if indicated. Nitrite, Urine Negative (Normal) Urobilinogen,Semi-Qn 0.2 mg/dL (Normal) Range: 0.0-1.9 Bilirubin Negative (Normal) Occult Blood Negative (Normal) Ketones Negative (Normal) Glucose Negative (Normal) Protein Negative (Normal) WBC Esterase Negative (Normal) Appearance Clear (Normal) Urine-Color Yellow (Normal) pH 7.0 (Normal) Range: 5.0-7.5 Specific [place] 1.016 (Normal) Range: 1.005-1.030 :12 MICROALBUMIN: CREATININE RATIO Comments: PATIENT WAS FASTINGPERFORMED BY: [employer] [facility] [id number] ([id number]) AND (45327) Microalb/Creat Ratio <.8 {mg/g_creat} (Normal) Range: 0.0-30.0 Microalbumin, Urine <1.0 ug/mL (Normal) Range: 0.0-17.0 Comments: Verified by repeat analysis Creatinine, Urine 118.8 mg/dL (Normal) Range: 15.0-278.0 :12 METABOLIC PANEL, COMPREHENSIVE Comments: PATIENT WAS FASTINGPERFORMED BY: [employer] Dlkaiw0062 [facility] [id number] (40009) ALT (SGPT) 21 [iU]/L (Normal) Range: 0-40 AST (SGOT) 23 [iU]/L (Normal) Range: 0-40 Alkaline Phosphatase, S 68 [iU]/L (Normal) Range: 25-150 Bilirubin, Total 0.3 mg/dL (Normal) Range: 0.0-1.2 A/G Ratio 1.9 (Normal) Range: 1.1-2.5 Globulin, Total 2.2 g/dL (Normal) Range: 1.5-4.5 Albumin, Serum 4.2 g/dL (Normal) Range: 3.5-5.5 Protein, Total, Serum 6.4 g/dL (Normal) Range: 6.0-8.5 Calcium, Serum 9.5 mg/dL (Normal) Range: 8.7-10.2 Carbon Dioxide, Total 23 mmol/L (Normal) Range: 20-32 Chloride, Serum 100 mmol/L (Normal) Range: 97-108 Potassium, Serum 4.2 mmol/L (Normal) Range: 3.5-5.2 Sodium, Serum 135 mmol/L (Normal) Range: 135-145 BUN/Creatinine Ratio 21 (Normal) Range: 9-23 eGFR If Africn Am 91 mL/min/1.73 (Normal) Comments: Note: A persistent eGFR <60 mL/min/1.73 m2 (3 months or more) mayindicate chronic kidney disease. An eGFR >59 mL/min/1.73 m2 with anelevated urine protein also may indicate chronic kidney disease.Calculated using CKD-EPI formula. eGFR If NonAfricn Am 79 mL/min/1.73 (Normal) Creatinine, Serum 0.82 mg/dL (Normal) Range: 0.57-1.00 BUN 17 mg/dL (Normal) Range: 6-24 Glucose, Serum 89 mg/dL (Normal) Range: 65-99 90-Lpo-21236:12 CBC WITH MANUAL DIFF Comments: PATIENT WAS FASTINGPERFORMED BY: LabCoMathen[facility] Medical [facility] Educational CenterXvfzwn2257 [facility] [id number] Information: [id number] (04761) Immature Grans (Abs) 0.0 {x10E3/uL} (Normal) Range: 0.0-0.1 Immature Granulocytes 0 % (Normal) Range: 0-2 Comments: Please note reference interval change Baso (Absolute) 0.0 {x10E3/uL} (Normal) Range: 0.0-0.2 Eos (Absolute) 0.0 {x10E3/uL} (Normal) Range: 0.0-0.4 Monocytes(Absolute) 0.4 {x10E3/uL} (Normal) Range: 0.1-1.0 Lymphs (Absolute) 1.9 {x10E3/uL} (Normal) Range: 0.7-4.5 Neutrophils (Absolute) 3.6 {x10E3/uL} (Normal) Range: 1.8-7.8 Basos 0 % (Normal) Range: 0-3 Eos 0 % (Normal) Range: 0-7 Monocytes 6 % (Normal) Range: 4-13 Lymphs 32 % (Normal) Range: 14-46 Neutrophils 62 % (Normal) Range: 40-74 Platelets 319 {x10E3/uL} (Normal) Range: 140-415 RDW 13.8 % (Normal) Range: 11.7-15.0 MCHC 32.2 g/dL (Normal) Range: 32.0-36.0 MCH 26.5 pg (Abnormal) Range: 27.0-34.0 MCV 82 fL (Normal) Range: 80-98 Hematocrit 34.8 % (Normal) Range: 34.0-44.0 Hemoglobin 11.2 g/dL (Abnormal) Range: 11.5-15.0 RBC 4.23 {x10E6/uL} (Normal) Range: 3.80-5.10 WBC 5.9 {x10E3/uL} (Normal) Range: 4.0-10.5 :13 HgA1C , Office (63801) HgA1C , Office 5.6 % (Normal) Range: 4.6 - 7.1 :13 Blood Glucose , Office (52976) Blood Glucose , Office 87 (Normal) 76-Icu-535246:10 CALCIFIDIOL (58425) VIT D Comments: PATIENT NOT FASTINGPERFORMED BY: [facility]CoMat[facility] Educational CenterRhlpvk6331 [facility] [id number] Information: [id number] Vitamin D, 25-Hydroxy 52.8 ng/mL (Normal) Range: 32.0-100.0 Comments: Recent studies consider the lower limit of 32.0 ng/mL to be athreshold for optimal health.Lion AGGARWAL. J Nutr. 2005 Apr;135(2):317-22. 28-Xdn-493519:19 HgA1C , Office (91868) HgA1C , Office 5.4 % (Normal) Range: 4.6 - 7.1 40-Nah-412723:19 Blood Glucose , Office (72508) Blood Glucose , Office 100 (Normal) :09 MICROALBUMIN: CREATININE RATIO Comments: PATIENT WAS FASTINGPERFORMED BY: [facility]AGMemorial Medical CenterWfytzh4362 [facility] [id number] ([id number]) AND (43691) Microalb/Creat Ratio 2.6 {mg/g_creat} (Normal) Range: 0.0-30.0 Microalbumin, Urine 2.9 ug/mL (Normal) Range: 0.0-17.0 Creatinine, Urine 109.5 mg/dL (Normal) Range: 15.0-278.0 :09 CBC WITH MANUAL DIFF Comments: PATIENT WAS FASTINGPERFORMED BY: [employer] Gobspj1737 [facility] [id number] Information: [id number] (29541) Immature Grans (Abs) 0.0 {x10E3/uL} (Normal) Range: 0.0-0.1 Immature Granulocytes 0 % (Normal) Range: 0-1 Baso (Absolute) 0.0 {x10E3/uL} (Normal) Range: 0.0-0.2 Eos (Absolute) 0.0 {x10E3/uL} (Normal) Range: 0.0-0.4 Lymphs (Absolute) 1.5 {x10E3/uL} (Normal) Range: 0.7-4.5 Monocytes(Absolute) 0.4 {x10E3/uL} (Normal) Range: 0.1-1.0 Neutrophils (Absolute) 2.9 {x10E3/uL} (Normal) Range: 1.8-7.8 Basos 0 % (Normal) Range: 0-3 Eos 0 % (Normal) Range: 0-7 Monocytes 8 % (Normal) Range: 4-13 Lymphs 32 % (Normal) Range: 14-46 Neutrophils 60 % (Normal) Range: 40-74 Platelets 339 {x10E3/uL} (Normal) Range: 140-415 RDW 14.1 % (Normal) Range: 11.7-15.0 MCH 27.1 pg (Normal) Range: 27.0-34.0 MCHC 32.7 g/dL (Normal) Range: 32.0-36.0 Hematocrit 36.1 % (Normal) Range: 34.0-44.0 MCV 83 fL (Normal) Range: 80-98 Hemoglobin 11.8 g/dL (Normal) Range: 11.5-15.0 RBC 4.35 {x10E6/uL} (Normal) Range: 3.80-5.10 WBC 4.8 {x10E3/uL} (Normal) Range: 4.0-10.5 14-Nvr-50641:09 METABOLIC PANEL, COMPREHENSIVE Comments: PATIENT WAS FASTINGPERFORMED BY: [facility]CoMat[facility] Educational CenterLanrmw3844 [facility] [id number] ([id number]) ALT (SGPT) 22 [iU]/L (Normal) Range: 0-40 AST (SGOT) 26 [iU]/L (Normal) Range: 0-40 Alkaline Phosphatase, S 71 [iU]/L (Normal) Range: 25-150 Bilirubin, Total 0.4 mg/dL (Normal) Range: 0.0-1.2 A/G Ratio 1.8 (Normal) Range: 1.1-2.5 Albumin, Serum 4.3 g/dL (Normal) Range: 3.5-5.5 Globulin, Total 2.4 g/dL (Normal) Range: 1.5-4.5 Protein, Total, Serum 6.7 g/dL (Normal) Range: 6.0-8.5 Calcium, Serum 9.6 mg/dL (Normal) Range: 8.7-10.2 Carbon Dioxide, Total 24 mmol/L (Normal) Range: 20-32 Chloride, Serum 100 mmol/L (Normal) Range: 97-108 Potassium, Serum 4.2 mmol/L (Normal) Range: 3.5-5.2 Sodium, Serum 137 mmol/L (Normal) Range: 135-145 BUN/Creatinine Ratio 18 (Normal) Range: 8-27 Comments: Effective March 17, 2010, Bun/Creatinine Ratio reference interval will be changing to: Age Male Female <18 years 9 - 27 9 - 25 18 - 39 years 8 - 19 8 - 20 40 - 59 years 9 - 20 9 - 60 years and older 11 - eGFR AfricanAmerican >59 mL/min/1.73 Comments: Note: Persistent reduction for 3 months or more in an eGFR<60 mL/min/1.73 m2 defines CKD. Patients with eGFR values>/=60 mL/min/1.73 m2 may also have CKD if evidence of persistentproteinuria is (Normal) present. Additional information may be found [email or web address].org. Creatinine, Serum 0.83 mg/dL (Normal) Range: 0.57-1.00 eGFR >59 mL/min/1.73 (Normal) BUN 15 mg/dL (Normal) Range: 5-26 Comments: Effective March 17, 2010, BUN reference interval will be changing to: 0 - 12 months 3 - 18 mg/dL 1 - 17 years 5 - 18 mg/dL 18 - 39 years 6 - 20 mg/dL 40 - 59 years 6 - 24 mg/dL 60 - 89 y ears 8 - 27 mg/dL > 89 years 10 - 36 mg/dL Glucose, Serum 81 mg/dL (Normal) Range: 65-99 77-Nym-75220:09 TSH (97786) Comments: PATIENT WAS FASTINGPERFORMED BY: [employer]6[address] [facility] [id number] TSH 1.660 {uIU/mL} (Normal) Range: 0.450-4.500 :09 LIPID PANEL (75301) Comments: PATIENT WAS FASTINGPERFORMED BY: [employer] [facility] InsightZyqeck0424 [facility] [id number] LDL Cholesterol Calc 100 mg/dL (Abnormal) Range: 0-99 LDL/HDL Ratio 1.3 {ratio_units} (Normal) Range: 0.0-3.2 HDL Cholesterol 75 mg/dL (Normal) Comments: According to ATP-III Guidelines, HDL-C >59 mg/dL is considered anegative risk factor for CHD. VLDL Cholesterol Cl 10 mg/dL (Normal) Range: 5-40 Triglycerides 51 mg/dL (Normal) Range: 0-149 Cholesterol, Total 185 mg/dL (Normal) Range: 100-199 13-Xuc-595801:33 Blood Glucose , Office (26624) Blood Glucose , Office 135 (Normal) 41-Qjf-159264:33 HgA1C , Office (54985) HgA1C , Office 5.4 % (Normal) Range: 4.6 - 7.1 82-Mxb-620541:50 CALCIFIDIOL (88669) VIT D 25 Comments: PATIENT NOT FASTINGClinical Information: [id number] PERFORMED BY: [facility]6370 [facility] [id number] Vitamin D, 25-Hydroxy 45.3 ng/mL (Normal) Range: 32.0-100.0 Comments: Recent studies consider the lower limit of 32.0 ng/mL to be athreshold for optimal health.Lion AGGARWAL. J Nutr. 2004;135(2):317-22. :44 HgA1C , Office (02910) Comments: done km HgA1C , Office 5.6 % (Normal) Range: 4.6 - 7.1 :44 Blood Glucose , Office (03959) Comments: done km Blood Glucose , Office 114 (Normal) :01 MYOCARD PERF SPECT REST/STRESS Radiology Report See Note (Normal) Comments: Exam Number: [id number] MYOCARDIAL PERFUSION SCAN 11.5 mCi of Tc99m Sestamibi was injected at rest. The patient thenexercised according to the regular Donald protocol for 9 minutes and 25seco nds attainin g 87% of the maximum predicted heart rate for amaximum work load of 10.7 METs. At peak exercise, 33.7 mCi of Kg25eFypuhpiqn was injected. Stress images were then obtained. Stressand rest images were re constructed and compared in the short axis,vertical long and horizontal long axes. Gated images were alsoobtained. Review of the images demonstrate normal uptake of tracer in all areasof the myocardium . The resting images similarly demonstrate normaluptake of tracer in all areas of the myocardium. The gated ejectionfraction is 61%. No regional wall motion abnormalities are noted. CONCLUSION1. Exe rcise myocardial perfusion scan with no evidence of ischemia at a high work load.2. Preserved ejection fraction. Reported By: WILBER CARPIO M.D. 43-Cvd-799531:47 HgA1C , Office (66519) Comments: done HgA1C , Office 5.4 % (Normal) Range: 4.6 - 7.1 :47 Blood Glucose , Office (00356) Comments: done Blood Glucose , Office 106 (Normal) :04 LIPID CHOL 180 mg/dL (Normal) Comments: <200 mg/dL Desirable 200-240 mg/dL Borderline >240 mg/dL High Risk HDL 62 mg/dL (Normal) Comments: Reference Range HDL <40 mg/dL Low HDL Cholesterol HDL >or= 60 mg/dL High HDL Cholesterol LDL 102 mg/dL (Normal) Range: 0-130 TRIG 78 mg/dL (Normal) Comments: Serum Triglycerides Reference Interval Normal <150 mg/dL Borderline high 150 - 199 mg/dL High 200 - 499 mg/dL Very High > or = 500 mg/dL VLDL 16 mg/dL (Normal) Range: 5-40 :57 HgA1C , Office (21458) Comments: done HgA1C , Office 5.4 % (Normal) Range: 4.6 - 7.1 :57 Blood Glucose , Office (55075) Comments: done Blood Glucose , Office 93 (Normal) :47 HgA1C , Office (61549) Comments: DONE HgA1C , Office 5.6 % (Normal) Range: 4.6 - 7.1 :47 Blood Glucose , Office (16042) Comments: DONE Blood Glucose , Office 126 (Normal) :58 CBCD,SMEAR DIFF CELLS COUNTED 100 (Normal) HCT 35.1 % (Abnormal) Range: 37-47 HGB 11.9 g/dL (Abnormal) Range: 12.0-16.0 LYMPH 34 % (Normal) Range: 19-41 MCH 28.3 pg (Normal) Range: 27.0-32.0 MCHC 33.9 g/dL (Normal) Range: 32-36 MCV 83.4 fL (Normal) Range: 81-99 MONOCYTE 5 % (Normal) Range: 0-10 PLT 307 K/mm3 (Normal) Range: 150-450 PLT EST SeeNote (Normal) Comments: Result: ADEQUATE RBC 4.20 {M/mm3} (Normal) Range: 4.2-5.4 RDW 13.9 % (Normal) Range: 11.6-14.6 RED CELL MORPH SeeNote {NORMAL} (Normal) Comments: Result: NORM C+C SEGS 61 % (Normal) Range: 47-70 WBC 4.7 K/mm3 (Normal) Range: 4.4-11.0 :58 COMP METABOLIC A/G 1.3 {RATIO} (Normal) Range: 0.9-2.4 ALB 3.9 g/dL (Normal) Range: 3.4-5.0 ALK P 69 U/L (Normal) Range: 50-136 ALT 35 U/L (Normal) Range: 30-65 AST 19 U/L (Normal) Range: 15-37 BUN 14 mg/dL (Normal) Range: 7-18 BUN/CRE 17.5 {RATIO} (Normal) Range: 10-20 CA 9.2 mg/dL (Normal) Range: 8.5-10.1 CL 99 mmol/L (Normal) Range: 98-107 CO2 30.2 mmol/L (Normal) Range: 21.0-32.0 CREAT,SERUM 0.8 mg/dL (Normal) Range: 0.6-1.0 GAP 5 (Normal) Range: 5-15 GLOB 3.1 g/dL (Normal) Range: 2.7-4.2 GLU 80 mg/dL (Normal) Range: 70-110 K 4.2 mmol/L (Normal) Range: 3.5-5.1 NA 134 mmol/L (Abnormal) Range: 136-145 T BILI 0.38 mg/dL (Normal) Range: 0.00-1.00 T PROT 7.0 g/dL (Normal) Range: 6.4-8.2 :58 LIPID CHOL 160 mg/dL (Normal) Comments: <200 mg/dL Desirable 200-240 mg/dL Borderline >240 mg/dL High Risk HDL 54 mg/dL (Normal) Comments: Reference Range HDL <40 mg/dL Low HDL Cholesterol HDL >or= 60 mg/dL High HDL Cholesterol LDL 91 mg/dL (Normal) Range: 0-130 TRIG 77 mg/dL (Normal) Comments: Serum Triglycerides Reference Interval Normal <150 mg/dL Borderline high 150 - 199 mg/dL High 200 - 499 mg/dL Very High > or = 500 mg/dL VLDL 15 mg/dL (Normal) Range: 5-40 :58 MICROALB:CRE UR MALB:CREAT 7.0 {mg/g_CRE} (Normal) MICROALBUMIN,UR 8.2 mg/L (Normal) UR CREAT 117.7 mg/dL (Normal) :58 ROUTINE UA BILIRUBIN URINE SeeNote (Normal) Comments: Result: NEGATIVE CLARITY CLEAR (Normal) COLOR YELLOW (Normal) GLUCOSE, UR SeeNote (Normal) Comments: Result: NEGATIVE KETONE UR SeeNote mg/dL (Normal) Comments: Result: NEGATIVE LEUK ESTERASE SeeNote (Normal) Comments: Result: NEGATIVE NITRITE UR SeeNote (Normal) Comments: Result: NEGATIVE OCCULT BLOOD-UR SeeNote (Normal) Comments: Result: NEGATIVE pH UR 7.5 (Normal) Range: 5.0-8.0 PROT DIPSTX SeeNote (Normal) Comments: Result: NEGATIVE SP.GR. DIPSTX 1.015 (Normal) Range: 1.002-1.030 UROBILI 0.2 EU/dl (Normal) Range: 0.2 - 1.0 :58 TSH 0.71 {uIU/mL} (Normal) Range: 0.34-4.82 :31 HgA1C , Office (85791) HgA1C , Office 5.5 % (Normal) Range: 4.6 - 7.1 :31 Blood Glucose , Office (66858) Blood Glucose , Office 123 (Normal) :19 HgA1C , Office (30721) Comments: done HgA1C , Office 5.2 % (Normal) Range: 4.6 - 7.1 :19 Blood Glucose , Office (26090) Comments: done Blood Glucose , Office 103 (Normal) :53 LIPID CHOL 183 mg/dL (Normal) Comments: <200 mg/dL Desirable 200-240 mg/dL Borderline >240 mg/dL High Risk HDL 56 mg/dL (Normal) Comments: Reference Range HDL <40 mg/dL Low HDL Cholesterol HDL >or= 60 mg/dL High HDL Cholesterol LDL 114 mg/dL (Normal) Range: 0-130 TRIG 63 mg/dL (Normal) Comments: Serum Triglycerides Reference Interval Normal <150 mg/dL Borderline high 150 - 199 mg/dL High 200 - 499 mg/dL Very High > or = 500 mg/dL VLDL 13 mg/dL (Normal) Range: 5-40 [id number] Blood Glucose , Office (99061) Blood Glucose , Office 82 (Normal) :46 LIPID CHOL 190 mg/dL (Normal) Comments: <200 mg/dL Desirable 200-240 mg/dL Borderline >240 mg/dL High Risk HDL 58 mg/dL (Normal) Comments: Reference Range HDL <40 mg/dL Low HDL Cholesterol HDL >or= 60 mg/dL High HDL Cholesterol LDL 116 mg/dL (Normal) Range: 0-130 TRIG 80 mg/dL (Normal) Comments: Serum Triglycerides Reference Interval Normal <150 mg/dL Borderline high 150 - 199 mg/dL High 200 - 499 mg/dL Very High > or = 500 mg/dL VLDL 16 mg/dL (Normal) Range: -40 :27 Blood Glucose , Office (33361) Blood Glucose , Office 68 (Normal) :27 HgA1C , Office ([id number]) HgA1C , Office 5.1 % (Normal) Range: 4.6 - 7.1 :10 PFLIP CHOL 186 mg/dL (Normal) Comments: <200 mg/dL Desirable 200-240 mg/dL Borderline >240 mg/dL High Risk HDL 60 mg/dL (Normal) Comments: Reference Range HDL <40 mg/dL Low HDL Cholesterol HDL >or= 60 mg/dL High HDL Cholesterol LDL 117 mg/dL (Normal) Range: 0-130 TRIG 43 mg/dL (Normal) Comments: Serum Triglycerides Reference Interval Normal <150 mg/dL Borderline high 150 - 199 mg/dL High 200 - 499 mg/dL Very High > or = 500 mg/dL VLDL 9 mg/dL (Normal) Range: 5-40 Plan of Care Name Dates Details Instructions Diarrhea, unspecified type : Reviewed Lab Indication: Diarrhea, unspecified type Diarrhea in adult patient : Reviewed Lab Indication: Diarrhea in adult patient Non-smoker : Follow up if no improvement or if symptoms worsen Indication: Non-smoker Diarrhea in adult patient : *Abd Pain Red Flags Indication: Diarrhea in adult patient Diarrhea in adult patient : Diarrhea instructions Indication: Diarrhea in adult patient Non-smoker : Eprescribed prescriptions ([id number]) Indication: Non-smoker Chronic GERD : GERD Education Indication: Chronic GERD Hypercholesterolemia : Cholesterol mgmt Indication: Hypercholesterolemia Abnormal glucose tolerance test : Follow up in 4 months Indication: Abnormal glucose tolerance test Abnormal glucose tolerance test : Diet, Exercise, and Wt loss Indication: Abnormal glucose tolerance test Abnormal glucose tolerance test : *Diabetes Education Indication: Abnormal glucose tolerance test Abnormal glucose tolerance test : Reviewed Lab Indication: Abnormal glucose tolerance test Abnormal glucose tolerance test : Follow up in 6 months Indication: Abnormal glucose tolerance test Abnormal glucose tolerance test : *Diabetes Education Indication: Abnormal glucose tolerance test Hypercholesterolemia : Cholesterol mgmt Indication: Hypercholesterolemia Chronic GERD : GERD Education Indication: Chronic GERD Abnormal glucose tolerance test : Eprescribed prescriptions (G8553) Indication: Abnormal glucose tolerance test Hypercholesterolemia : Cholesterol mgmt Indication: Hypercholesterolemia Abnormal glucose tolerance test : Follow up in 4 months Indication: Abnormal glucose tolerance test Chronic GERD : GERD Education Indication: Chronic GERD Abnormal glucose tolerance test : *Diabetes Education Indication: Abnormal glucose tolerance test Abnormal glucose tolerance test : Diet, Exercise, and Wt loss Indication: Abnormal glucose tolerance test Abnormal glucose tolerance test : Reviewed Lab Indication: Abnormal glucose tolerance test Hypercholesterolemia : Reviewed Lab Indication: Hypercholesterolemia Osteoporosis : Reviewed Diagnostic Tests Indication: Osteoporosis Screening mammogram, encounter for : Mammogram *: gynecological health Indication: Screening mammogram, encounter for Abnormal glucose tolerance test : Follow up in 4 months Indication: Abnormal glucose tolerance test Abnormal glucose tolerance test : *Diabetes Education Indication: Abnormal glucose tolerance test Chronic GERD : GERD Education Indication: Chronic GERD Hypercholesterolemia : Cholesterol mgmt Indication: Hypercholesterolemia Abnormal glucose tolerance test : Eprescribed prescriptions (G8553) Indication: Abnormal glucose tolerance test Physical exam for work or camp (Renamed from School physical exam) : Reviewed Lab Indication: Physical exam for work or camp (Renamed from School physical exam) Cellulitis of hand : Follow up if no improvement or if symptoms worsen Indication: Cellulitis of hand Cellulitis of hand : Eprescribed prescriptions (G8553) Indication: Cellulitis of hand Diarrhea in adult patient : Diarrhea instructions Indication: Diarrhea in adult patient Hypertension : HTN/CAD Red Flags Indication: Hypertension Hypertension : Eprescribed prescriptions (G8553) Indication: Hypertension Annual physical exam : Follow up in 4 months Indication: Annual physical exam Annual physical exam : Reviewed Lab Indication: Annual physical exam Wheezing : Follow up if no improvement or if symptoms worsen Indication: Wheezing BRONCHITIS, NOT SPECIFIED ACUTE OR CHRONIC (490.) : *URI Treatment Indication: BRONCHITIS, NOT SPECIFIED ACUTE OR CHRONIC (490.) BRONCHITIS, NOT SPECIFIED ACUTE OR CHRONIC (490.) : *URI Symptoms Indication: BRONCHITIS, NOT SPECIFIED ACUTE OR CHRONIC (490.) BRONCHITIS, NOT SPECIFIED ACUTE OR CHRONIC (490.) : *Antibiotic Usage Education - Female Indication: BRONCHITIS, NOT SPECIFIED ACUTE OR CHRONIC (490.) Acute pharyngitis : Sore throat: diagnosis and treatment Indication: Acute pharyngitis Abnormal glucose tolerance test : *Colon Cancer Screening Indication: Abnormal glucose tolerance test Encounter for immunization : Shingles Vaccine Education 2005 Indication: Encounter for immunization Abnormal glucose tolerance test : Follow up in 4 months Indication: Abnormal glucose tolerance test Hyperlipidemia : Cholesterol mgmt Indication: Hyperlipidemia Abnormal glucose tolerance test : *Diabetes Education Indication: Abnormal glucose tolerance test GERD (gastroesophageal reflux disease) : GERD Education Indication: GERD (gastroesophageal reflux disease) Encounter for annual health examination : Reviewed Lab Indication: Encounter for annual health examination Hyperlipidemia : Cholesterol mgmt Indication: Hyperlipidemia Breast pain in female : Reviewed Diagnostic Tests Indication: Breast pain in female Iron deficiency anemia, unspecified : Reviewed Lab Indication: Iron deficiency anemia, unspecified Abnormal glucose tolerance test : Follow up in 6 months- do ekg at next viist Indication: Abnormal glucose tolerance test Abnormal glucose tolerance test : *Diabetes Education Indication: Abnormal glucose tolerance test Hyperlipidemia : Cholesterol mgmt Indication: Hyperlipidemia Abnormal glucose tolerance test : Eprescribed prescriptions (G8553) Indication: Abnormal glucose tolerance test Abnormal glucose tolerance test : Follow up in 4 months Indication: Abnormal glucose tolerance test Abnormal glucose tolerance test : Diet, Exercise, and Wt loss Indication: Abnormal glucose tolerance test Abnormal glucose tolerance test : *Diabetes Education Indication: Abnormal glucose tolerance test Hyperlipidemia : Cholesterol mgmt Indication: Hyperlipidemia GERD (gastroesophageal reflux disease) : GERD Education Indication: GERD (gastroesophageal reflux disease) Abnormal glucose tolerance test : Follow up in 4 months Indication: Abnormal glucose tolerance test Hyperlipidemia : Cholesterol mgmt Indication: Hyperlipidemia GERD (gastroesophageal reflux disease) : GERD Education Indication: GERD (gastroesophageal reflux disease) Abnormal glucose tolerance test : Diet, Exercise, and Wt loss Indication: Abnormal glucose tolerance test Abnormal glucose tolerance test : *Diabetes Education Indication: Abnormal glucose tolerance test Anemia, unspecified : Anemia: diagnosis and treatment Indication: Anemia, unspecified Abnormal glucose tolerance test : Follow up in 6 months Indication: Abnormal glucose tolerance test GERD (gastroesophageal reflux disease) : GERD Education Indication: GERD (gastroesophageal reflux disease) Hyperlipidemia : Cholesterol mgmt Indication: Hyperlipidemia Abnormal glucose tolerance test : Diet, Exercise, and Wt loss Indication: Abnormal glucose tolerance test Abnormal glucose tolerance test : *Diabetes Education Indication: Abnormal glucose tolerance test Hyperlipidemia : High Cholesterol (Hypercholesterolemia) *: cardiovascular health Indication: Hyperlipidemia Hyperlipidemia : Reviewed Lab Indication: Hyperlipidemia Hyperlipidemia : Cholesterol mgmt Indication: Hyperlipidemia Abnormal glucose tolerance test : Follow up in 6 months Indication: Abnormal glucose tolerance test GERD (gastroesophageal reflux disease) : Heartburn *: gerd Indication: GERD (gastroesophageal reflux disease) Encounter for routine adult medical examination : Reviewed Lab Indication: Encounter for routine adult medical examination Abnormal glucose tolerance test : Follow up in 6 months Indication: Abnormal glucose tolerance test GERD (gastroesophageal reflux disease) : GERD Education Indication: GERD (gastroesophageal reflux disease) Osteoporosis : *Calcium Education (KF) Indication: Osteoporosis Hyperlipidemia : *Cholesterol - Nonprescription Treatment Indication: Hyperlipidemia Hyperlipidemia : Cholesterol mgmt Indication: Hyperlipidemia Hyperlipidemia : Diet, Exercise, and Wt loss Indication: Hyperlipidemia Abnormal glucose tolerance test : Diet, Exercise, and Wt loss Indication: Abnormal glucose tolerance test Abnormal glucose tolerance test : *Diabetes Education Indication: Abnormal glucose tolerance test Osteoporosis : Reviewed Diagnostic Tests Indication: Osteoporosis Abnormal glucose tolerance test : Follow up in 6 months Indication: Abnormal glucose tolerance test Hyperlipidemia : Cholesterol mgmt Indication: Hyperlipidemia Hyperlipidemia : *Cholesterol - Nonprescription Treatment Indication: Hyperlipidemia Hyperlipidemia : *Cholesterol - Medication Side Effects Indication: Hyperlipidemia Abnormal glucose tolerance test : *Diabetes Education Indication: Abnormal glucose tolerance test Abnormal glucose tolerance test : Diet, Exercise, and Wt loss Indication: Abnormal glucose tolerance test Neoplasm of uncertain behavior of skin : Shave Biopsy with tipical Indication: Neoplasm of uncertain behavior of skin Hyperlipidemia : Reviewed Lab Indication: Hyperlipidemia Hyperlipidemia : *Cholesterol - Nonprescription Treatment Indication: Hyperlipidemia Hyperlipidemia : CHOLESTEROL MGMT. Indication: Hyperlipidemia GERD (gastroesophageal reflux disease) : GERD Education Indication: GERD (gastroesophageal reflux disease) Abnormal glucose tolerance test : *Diabetes Education Indication: Abnormal glucose tolerance test Abnormal glucose tolerance test : Diet, Exercise, and Wt loss Indication: Abnormal glucose tolerance test Abnormal glucose tolerance test : FOLLOW UP IN 6 MONTHS Indication: Abnormal glucose tolerance test BRONCHITIS, NOT SPECIFIED ACUTE OR CHRONIC (490.) : *URI Treatment Indication: BRONCHITIS, NOT SPECIFIED ACUTE OR CHRONIC (490.) BRONCHITIS, NOT SPECIFIED ACUTE OR CHRONIC (490.) : *URI Symptoms Indication: BRONCHITIS, NOT SPECIFIED ACUTE OR CHRONIC (490.) BRONCHITIS, NOT SPECIFIED ACUTE OR CHRONIC (490.) : *Antibiotic Usage Education - Female Indication: BRONCHITIS, NOT SPECIFIED ACUTE OR CHRONIC (490.) Abnormal glucose tolerance test : FOLLOW UP IN 4 MONTHS Indication: Abnormal glucose tolerance test Osteoporosis : *Calcium Education (KF) Indication: Osteoporosis Benign essential hypertension : Diet, Exercise, and Wt loss Indication: Benign essential hypertension Benign essential hypertension : HTN/CAD Red Flags Indication: Benign essential hypertension Abnormal glucose tolerance test : Diet, Exercise, and Wt loss Indication: Abnormal glucose tolerance test Abnormal glucose tolerance test : *Diabetes Education Indication: Abnormal glucose tolerance test Abnormal glucose tolerance test : FOLLOW UP IN 4 MONTHS Indication: Abnormal glucose tolerance test Hyperlipidemia : Cholesterol - Medication Side Effects Indication: Hyperlipidemia Hyperlipidemia : CHOLESTEROL MGMT. Indication: Hyperlipidemia Hyperlipidemia : Cholesterol - Nonprescription Treatment Indication: Hyperlipidemia Benign essential hypertension : Diet, Exercise, and Wt loss Indication: Benign essential hypertension Benign essential hypertension : HTN/CAD Red Flags Indication: Benign essential hypertension GERD (gastroesophageal reflux disease) : GERD Education Indication: GERD (gastroesophageal reflux disease) Abnormal glucose tolerance test : Diet, Exercise, and Wt loss Indication: Abnormal glucose tolerance test Abnormal glucose tolerance test : *Diabetes Education Indication: Abnormal glucose tolerance test Inflamed skin tag : Skin Tags Indication: Inflamed skin tag Osteoporosis : Calcium Education (KF) Indication: Osteoporosis GERD (gastroesophageal reflux disease) : GERD Education Indication: GERD (gastroesophageal reflux disease) Abnormal glucose tolerance test : *Diabetes Education Indication: Abnormal glucose tolerance test Hyperlipidemia : CHOLESTEROL MGMT. Indication: Hyperlipidemia Hyperlipidemia : Cholesterol - Nonprescription Treatment Indication: Hyperlipidemia Hyperlipidemia : Cholesterol - Medication Side Effects Indication: Hyperlipidemia Abnormal glucose tolerance test : Diet, Exercise, and Wt loss Indication: Abnormal glucose tolerance test Abnormal glucose tolerance test : *Diabetes Education Indication: Abnormal glucose tolerance test Osteoporosis : Well Female Maintenance (KF) Indication: Osteoporosis GERD (gastroesophageal reflux disease) : GERD Education Indication: GERD (gastroesophageal reflux disease) Hyperlipidemia : CHOLESTEROL MGMT. Indication: Hyperlipidemia Hyperlipidemia : Cholesterol - Nonprescription Treatment Indication: Hyperlipidemia Hyperlipidemia : Cholesterol - Medication Side Effects Indication: Hyperlipidemia Headache : Headache Red Flags Indication: Headache GERD (gastroesophageal reflux disease) : GERD Education Indication: GERD (gastroesophageal reflux disease) Hyperlipidemia : CHOLESTEROL MGMT. Indication: Hyperlipidemia Hyperlipidemia : Cholesterol - Nonprescription Treatment Indication: Hyperlipidemia Hyperlipidemia : Cholesterol - Medication Side Effects Indication: Hyperlipidemia Abnormal glucose tolerance test : Diet, Exercise, and Wt loss Indication: Abnormal glucose tolerance test Abnormal glucose tolerance test : *Diabetes Education Indication: Abnormal glucose tolerance test Hyperlipidemia : Cholesterol - Nonprescription Treatment Indication: Hyperlipidemia Hyperlipidemia : CHOLESTEROL MGMT. Indication: Hyperlipidemia Hyperlipidemia : Cholesterol - Medication Side Effects Indication: Hyperlipidemia Osteoporosis : Well Female Maintenance (KF) Indication: Osteoporosis GERD (gastroesophageal reflux disease) : GERD Education Indication: GERD (gastroesophageal reflux disease) Hyperlipidemia : CHOLESTEROL MGMT. Indication: Hyperlipidemia Hyperlipidemia : Cholesterol - Medication Side Effects Indication: Hyperlipidemia Hyperlipidemia : Cholesterol - Nonprescription Treatment Indication: Hyperlipidemia Abnormal glucose tolerance test : FOLLOW UP IN 5 MONTHS Indication: Abnormal glucose tolerance test Abnormal glucose tolerance test : *Diabetes Education Indication: Abnormal glucose tolerance test Hyperlipidemia : Cholesterol - Nonprescription Treatment Indication: Hyperlipidemia Hyperlipidemia : Cholesterol - Medication Side Effects Indication: Hyperlipidemia GERD (gastroesophageal reflux disease) : GERD Education Indication: GERD (gastroesophageal reflux disease) Hyperlipidemia : Cholesterol - Nonprescription Treatment Indication: Hyperlipidemia Depression : Antidepressant Usage Indication: Depression Abnormal glucose tolerance test : FOLLOW UP IN 3 MONTHS Indication: Abnormal glucose tolerance test Hyperlipidemia : Cholesterol - Nonprescription Treatment Indication: Hyperlipidemia Hyperlipidemia : Diet and Exercise Indication: Hyperlipidemia Headache : Reviewed Diagnostic Tests:--mri-angio and cat scan Indication: Headache Planned Observations LIPID PANEL ([id number])Indication: Hypercholesterolemia On: 48-Cso-966591:58 Request LEUKOCYTE COUNT, FECAL ([id number])Indication: Diarrhea in adult patient On: :02 Request C-DIFFICILE, STOOL ([id number])Indication: Diarrhea in adult patient On: 49-Kac-19608:02 Request HGB A1C ([id number])Indication: Abnormal glucose tolerance test On: 09-Erp-063818:54 Request Comments: standing order every 4months for one year IRON BINDING CAPACITY (TIBC) ([id number])Indication: Iron deficiency anemia, unspecified On: 28-Yqg-720349:54 Request IRON ([id number])Indication: Iron deficiency anemia, unspecified On: 73-Spp-518991:53 Request FERRITIN ([id number])Indication: Iron deficiency anemia, unspecified On: 86-Pqp-729414:53 Request TSH (THYROID STIMULATING HORMONE) ([id number])Indication: Abnormal glucose tolerance test On: 56-Unx-222217:53 Request MICROALBUMIN: CREATININE RATIO ([id number]) AND ([id number])Indication: Abnormal glucose tolerance test On: 83-Nvn-774197:53 Request METABOLIC PANEL, COMPREHENSIVE ([id number])Indication: Abnormal glucose tolerance test On: 98-Tob-592314:53 Request LIPID PANEL ([id number])Indication: Hypercholesterolemia On: :53 Request CBC with auto diff ([id number])Indication: Abnormal glucose tolerance test On: 39-Krc-660263:53 Request HGB A1C ([id number])Indication: Abnormal glucose tolerance test On: 66-Nwa-818910:08 Request HGB A1C ([id number])Indication: Abnormal glucose tolerance test On: 08-Feb-2017 Request HGB A1C ([id number])Indication: Abnormal glucose tolerance test On: 14-Nov-2016 Request HGB A1C ([id number])Indication: Abnormal glucose tolerance test On: 11-Oct-2016 Request HGB A1C ([id number])Indication: Abnormal glucose tolerance test On: 72-Gpr-510415:37 Request HGB A1C ([id number])Indication: Abnormal glucose tolerance test On: 13-Jun-2016 Request HGB A1C ([id number])Indication: Abnormal glucose tolerance test On: :02 Request CALCIFIDIOL ([id number]) VIT D 25Indication: Abnormal glucose tolerance test On: :02 Request TSH ([id number])Indication: Abnormal glucose tolerance test On: :02 Request URINALYSIS, W/ MICRO ([id number])Indication: Abnormal glucose tolerance test On: 14-Feb-20169:02 Request MICROALBUMIN: CREATININE RATIO ([id number]) AND ([id number])Indication: Abnormal glucose tolerance test On: :02 Request METABOLIC PANEL, COMPREHENSIVE ([id number])Indication: Abnormal glucose tolerance test On: :02 Request CBC W/AUTO DIFF WBC ([id number])Indication: Abnormal glucose tolerance test On: :01 Request Hemoglobin Glyclated (HGB A1C) ([id number])Indication: Abnormal glucose tolerance test On: 12-Nov-2015 Request Lyme Disease Antibody W/ Reflex ([id number])Indication: Arthralgia of right hand On: 77-Aoz-715084:39 Request Metabolic Panel, Basic ([id number])Indication: Arthralgia of right hand On: 00-Sdf-528732:34 Request CBC, Platelets & Auto Diff ([id number])Indication: Arthralgia of right hand On: 50-Xge-178748:34 Request C-Reactive Protein ([id number])Indication: Arthralgia of right hand On: Request SED RATE ERYTHROCYTE ([id number])Indication: Arthralgia of right hand On: : Request OVA & PARASITE DIR SMEAR ([id number])Indication: Diarrhea in adult patient On: : Request OCCULT BLOOD FECES SCREEN ([id number])Indication: Diarrhea in adult patient On: Request LEUKOCYTE COUNT, FECAL ([id number])Indication: Diarrhea in adult patient On: : Request C-DIFFICILE, STOOL ([id number])Indication: Diarrhea in adult patient On: Request SALUD CULTURE-STOOL ([id number])Indication: Diarrhea in adult patient On: Request Sed Rate Erythrocyte ([id number])Indication: Abdominal pain On: :14 Request TSH ([id number])Indication: Diarrhea in adult patient On: : Request METABOLIC PANEL, COMPREHENSIVE ([id number])Indication: Diarrhea in adult patient On: : Request CBC W/AUTO DIFF WBC ([id number])Indication: Diarrhea in adult patient On: : Request Rapid Flu (56900 x 2)Indication: Flu-like symptoms On: :13 Request Hemoglobin Glyclated (HGB A1C) ([id number])Indication: Abnormal glucose tolerance test On: 15-Jul-2015 Request TSH ([id number])Indication: Hypertension On: : Request URINALYSIS, W/ MICRO ([id number])Indication: Hypertension On: : Request METABOLIC PANEL, COMPREHENSIVE ([id number])Indication: Hypertension On: : Request LIPID PANEL ([id number])Indication: Hypertension On: : Request CBC with auto diff ([id number])Indication: Hypertension On: 08-Jzf-40030: Request Hemoglobin Glyclated (HGB A1C) ([id number])Indication: Abnormal glucose tolerance test On: 17-Mar-2015 Request Hemoglobin Glyclated (HGB A1C) ([id number])Indication: Abnormal glucose tolerance test On: 17-Nov-2014 Request Hemoglobin Glyclated (HGB A1C) ([id number])Indication: Abnormal glucose tolerance test On: 20-Jul-2014 Request Hemoglobin Glyclated (HGB A1C) ([id number])Indication: Abnormal glucose tolerance test On: Request TSH ([id number])Indication: Abnormal glucose tolerance test On: Request URINALYSIS, W/ MICRO ([id number])Indication: Abnormal glucose tolerance test On: Request MICROALBUMIN: CREATININE RATIO ([id number]) AND ([id number])Indication: Abnormal glucose tolerance test On: Request METABOLIC PANEL, COMPREHENSIVE ([id number])Indication: Abnormal glucose tolerance test On: Request LIPID PANEL ([id number])Indication: Abnormal glucose tolerance test On: Request CBC W/AUTO DIFF WBC ([id number])Indication: Abnormal glucose tolerance test On: Request LIPID PANEL ([id number])Indication: Hyperlipidemia On: Request HEPATIC FUNCTION PANEL ([id number])Indication: Hyperlipidemia On: :45 Request LIPID PANEL ([id number])Indication: Hyperlipidemia On: 6-Rtu-101576:45 Request CCP ANTIBODY ([id number])Indication: Pain in unspecified joint On: :18 Request SED RATE ERYTHROCYTE ([id number])Indication: Pain in unspecified joint On: :18 Request C-REACTIVE PROTEIN ([id number])Indication: Pain in unspecified joint On: :18 Request RHEUMATOID FACTOR-QUANT ([id number])Indication: Pain in unspecified joint On: :18 Request BRENDAN (ANTINUCLEAR ANTIBODY) ([id number])Indication: Pain in unspecified joint On: :18 Request IRON BINDING CAPACITY (TIBC) ([id number])Indication: Iron deficiency anemia, unspecified On: :12 Request IRON ([id number])Indication: Iron deficiency anemia, unspecified On: :12 Request FERRITIN ([id number])Indication: Iron deficiency anemia, unspecified On: :12 Request CBC WITH MANUAL DIFF ([id number])Indication: Iron deficiency anemia, unspecified On: :11 Request LIPID PANEL ([id number])Indication: Hyperlipidemia On: :11 Request TSH ([id number])Indication: Abnormal glucose tolerance test On: :11 Request MICROALBUMIN: CREATININE RATIO ([id number]) AND ([id number])Indication: Abnormal glucose tolerance test On: :11 Request METABOLIC PANEL, COMPREHENSIVE ([id number])Indication: Abnormal glucose tolerance test On: :11 Request FERRITIN ([id number])Indication: Iron deficiency anemia, unspecified On: 5-Zlk-583850:11 Request CBC, PLATELETS & MANUAL DIFF ([id number])Indication: Iron deficiency anemia, unspecified On: 6-Xcd-163799:10 Request IRON & TOTAL IRON BINDING CAPACITY ([id number])Indication: Iron deficiency anemia, unspecified On: 5-Anw-601458:08 Request FERRITIN ([id number])Indication: Anemia, unspecified On: 95-Zso-947189:12 Request IRON ([id number])Indication: Anemia, unspecified On: 88-Rvq-228894:12 Request IRON BINDING CAPACITY (TIBC) ([id number])Indication: Anemia, unspecified On: 41-Cer-468632:11 Request FECAL OCCULT- Tubes sent home ([id number])Indication: Anemia, unspecified On: :33 Request TRINIDAD TEST, DIRECT ([id number])Indication: Anemia, unspecified On: :33 Request FOLIC ACID SERUM ([id number])Indication: Anemia, unspecified On: :33 Request Methylmalonic acid, serum 49685Gcrewcscxk: Anemia, unspecified On: :33 Request VITAMIN B-12 (CYANOCOBALAMIN) ([id number])Indication: Anemia, unspecified On: :33 Request RETICULOCYTE COUNT MANUL ([id number])Indication: Anemia, unspecified On: :33 Request LDH (LD) (LACTATE DEHYDROGENASE) ([id number])Indication: Anemia, unspecified On: :33 Request IRON BINDING CAPACITY (TIBC) ([id number])Indication: Anemia, unspecified On: :33 Request IRON ([id number])Indication: Anemia, unspecified On: :33 Request FERRITIN ([id number])Indication: Anemia, unspecified On: :33 Request CBC, PLATELETS & AUT DIFF ([id number])Indication: Anemia, unspecified On: :33 Request CBC with manual diff ([id number])Indication: Hyperlipidemia On: 1-Tpp-991923:36 Request TSH ([id number])Indication: Abnormal glucose tolerance test On: :24 Request URINALYSIS, W/ MICRO ([id number])Indication: Abnormal glucose tolerance test On: :24 Request MICROALBUMIN: CREATININE RATIO ([id number]) AND ([id number])Indication: Abnormal glucose tolerance test On: :24 Request METABOLIC PANEL, COMPREHENSIVE ([id number])Indication: Abnormal glucose tolerance test On: :24 Request LIPID PANEL ([id number])Indication: Abnormal glucose tolerance test On: :24 Request CBC WITH MANUAL DIFF ([id number])Indication: Abnormal glucose tolerance test On: :24 Request TSH ([id number])Indication: Abnormal glucose tolerance test On: :53 Request URINALYSIS, W/ MICRO ([id number])Indication: Abnormal glucose tolerance test On: :53 Request MICROALBUMIN: CREATININE RATIO ([id number]) AND ([id number])Indication: Abnormal glucose tolerance test On: :53 Request METABOLIC PANEL, COMPREHENSIVE ([id number])Indication: Abnormal glucose tolerance test On: :53 Request LIPID PANEL ([id number])Indication: Abnormal glucose tolerance test On: :53 Request CBC WITH MANUAL DIFF ([id number])Indication: Abnormal glucose tolerance test On: :53 Request Sed Rate Erythrocyte ([id number])Indication: Abdominal pain On: :23 Request Metabolic Panel, Comprehensive ([id number])Indication: Abdominal pain On: :23 Request CBC with manual diff ([id number])Indication: Abdominal pain On: :23 Request IRON BINDING CAPACITY (TIBC) ([id number])Indication: Iron deficiency anemia, unspecified On: :42 Request IRON ([id number])Indication: Iron deficiency anemia, unspecified On: :41 Request FERRITIN ([id number])Indication: Iron deficiency anemia, unspecified On: :41 Request TSH ([id number])Indication: Depression On: :41 Request URINALYSIS, W/ MICRO ([id number])Indication: Abnormal glucose tolerance test On: :41 Request MICROALBUMIN: CREATININE RATIO ([id number]) AND ([id number])Indication: Abnormal glucose tolerance test On: :41 Request METABOLIC PANEL, COMPREHENSIVE ([id number])Indication: Abnormal glucose tolerance test On: :41 Request LIPID PANEL ([id number])Indication: Abnormal glucose tolerance test On: :41 Request CBC WITH MANUAL DIFF ([id number])Indication: Abnormal glucose tolerance test On: :41 Request TSH ([id number])Indication: Abnormal glucose tolerance test On: :39 Request URINALYSIS, W/ MICRO ([id number])Indication: Abnormal glucose tolerance test On: :39 Request MICROALBUMIN: CREATININE RATIO ([id number]) AND ([id number])Indication: Abnormal glucose tolerance test On: :39 Request METABOLIC PANEL, COMPREHENSIVE ([id number])Indication: Abnormal glucose tolerance test On: :39 Request LIPOPROTEIN, BLD, BY NMR ([id number])Indication: Abnormal glucose tolerance test On: :39 Request LIPID PANEL ([id number])Indication: Abnormal glucose tolerance test On: :38 Request CBC WITH MANUAL DIFF ([id number])Indication: Abnormal glucose tolerance test On: :38 Request LIPID PANEL ([id number])Indication: Hyperlipidemia On: :21 Request Comments: do in 6 months URINALYSIS W/O MICRO ([id number])Indication: Abnormal glucose tolerance test On: :58 Request TSH ([id number])Indication: Abnormal glucose tolerance test On: :58 Request MICROALBUMIN: CREATININE RATIO ([id number]) AND ([id number])Indication: Abnormal glucose tolerance test On: :58 Request METABOLIC PANEL, COMPREHENSIVE ([id number])Indication: Abnormal glucose tolerance test On: :58 Request CBC WITH MANUAL DIFF ([id number])Indication: Abnormal glucose tolerance test On: :58 Request LIPID PANEL ([id number])Indication: Abnormal glucose tolerance test On: :58 Request METABOLIC PANEL, COMPREHENSIVE ([id number])Indication: Abnormal glucose tolerance test On: :58 Request MICROALBUMIN: CREATININE RATIO ([id number]) AND ([id number])Indication: Abnormal glucose tolerance test On: :58 Request IRON BINDING CAPACITY (TIBC) ([id number])Indication: Iron deficiency anemia, unspecified On: :57 Request IRON ([id number])Indication: Iron deficiency anemia, unspecified On: :57 Request FERRITIN ([id number])Indication: Iron deficiency anemia, unspecified On: :57 Request CBC, PLATELETS & AUT DIFF ([id number])Indication: Iron deficiency anemia, unspecified On: :57 Request HgA1C , Office ([id number])Indication: Abnormal glucose tolerance test On: :56 Request Lipid Panel ([id number])Indication: Hyperlipidemia On: :54 Request Comments: do in 3-4 months-- and 12 hr fast Lipid Panel ([id number])Indication: Hyperlipidemia On: :41 Request Planned Procedures ULTRASOUND AORTA ([id number])By: Vazquez On: 15-Oct-2017 Intent Penny HOLDEN Comments: AND ATTENTION Aorta and Rt RENAL ARTERY SCREENING FOR OBSTRUCTIVE SLEEP APNEA On: 04-May-2017 Intent ([id number])By: Shila Dinh DO, DO, Kathleen ATTENDED SLEEP STUDY ([id number])By: On: 22-Apr-2017 Intent Shila Dinh DO, DO, Kathleen MAMMOGRAM BREAST BILATERAL SCREENING On: 20-Mar-2016 Intent DIGITAL ([id number])By: Shila Dinh DO, DO, Kathleen DEXA SCAN AXIAL SKELETON ([id number])By: On: 14-Feb-2016 Intent Shila Dinh DO, DO, Kathleen Rocephin Injection, 2 Gram On: 23-Sep-2015 Intent ([id number])By: Penny Shukla CNP Comments: [id number] grams Rocephin2.5 in each syringe - one in R and one L side, hip, IMML ELECTROCARDIOGRAM, COMPLETE (ECG) On: 23-May-2015 Intent ([id number])By: Stephanie VILLELA, Radha El Comments: DO AT HOSPITAL Aerosol Treatment ([id number])By: Vazquez On: 02-Jul-2014 Intent Penny HOLDEN SPECIMEN HNDLNG/TRNSPRT, OFFC > LAB On: 02-Jul-2014 Intent ([id number])By: Penny Shukla CNP IMMUNIZ ADMNIN, 1 VAC, SNGL/COMBO On: 22-Mar-2014 Intent ([id number])By: Shila Dinh DO Comments: lot [id number] 02/06/2015location L armroute SQgiven by - msmith VIS and/or ABN signed Shila DUBON [place] ([id number])By: Allegra DUBON, On: 22-Mar-2014 Intent Shila Jiang DO MAMMOGRAM, SCREENING, BOTH BREAST On: 29-Dec-2013 Intent ([id number])By: Shila Dinh DO, DO, Kathleen COMPUTED TOMOGRAPHY ANGIOGRAPHY OF On: 18-Aug-2013 Intent BRAIN WITH CONTRAST ([id number])By: Shila Dinh DO, DO, Kathleen Eprescribed prescriptions ([id number])By: On: 17-Feb-2013 Intent Shila Dinh DO, DO, Kathleen EKG ([id number])By: Shila Dinh DO On: 01-Sep-2012 Intent Shila Dinh DO Comments: nsr no acute chg Eprescribed prescriptions ([id number])By: On: 02-May-2012 Intent Shari Scott LPN Eprescribed prescriptions ([id number])By: On: 25-Jan-2012 Intent Shila Dinh DO, DO, Kathleen Ultrasound - GallbladderBy: Allegra On: 25-Jan-2012 Intent Shila DUBON DO, Kathleen Radiology - Foot - LeftBy: Allegra DUBON, On: 17-Sep-2011 Intent Shila Jiang DO Comments: foot and toes EKG ([id number])By: Shila Dinh DO On: 15-Oct-2010 Intent Shila Dinh DO Comments: nsr no acute chgn Inhaler Demonstration ([id number])By: On: 04-Dec-2009 Intent Ciesa Penny HOLDEN E Aerosol Treatment ([id number])By: Ciesa On: 04-Dec-2009 Intent Penny HOLDEN E EKG ([id number])By: Shila Dinh DO On: 26-Sep-2009 Intent Shila Dinh DO Comments: NSR NO ACUTE CHG EKG ([id number])By: Shila Dinh DO On: 19-Oct-2008 Intent Shila Dinh DO Comments: compared to old one mar 16ns no acute changes Echo CompleteBy: Shila Dinh DO On: 19-Oct-2008 Intent Shila Dinh DO Nuclear Stress Test/Stress On: 19-Oct-2008 Intent SPECT/TreadmillBy: Shila Dinh DO, DO, Kathleen TDAP VACCINE >7 IM ([id number])By: Allegra On: 16-Jul-2008 Shila Martins DO, DO, Kathleen Comments: Lot #[id number]-3/2011Site-left deltoidDose0.5mlgiven by Juan F Fine LPN MRI - BrainBy: Shila Dinh DO On: 16-Jul-2008 Intent Shila Dinh DO Comments: mra carotids and brain to eval pulsatile tinnitus EKG ([id number])By: Shari Scott LPN On: 26-Mar-2008 Intent Comments: done awnsr no acute changes-- EKG ([id number])By: Shila Dinh DO On: 18-Aug-2007 Intent Shila Dinh DO IMMUNIZ ADMNIN, 1 VAC, SNGL/COMBO On: 02-Feb-2007 Intent ([id number])By: Shari Scott LPN FLU VAC, SPLIT, >3 YEARS, INTRAMUSC On: 02-Feb-2007 Intent ([id number])By: Shari Scott LPN Comments: 0.5 cc given im lt arml lot [id number] exp 09-05-07 EKG ([id number])By: Shila Dinh DO On: 06-Oct-2006 Intent Shila Dinh DO Comments: NSR NO ACUTE ISCHEMIC CHANGES FLU VAC, SPLIT, >3 YEARS, INTRAMUSC On: 26-Jan-2006 Intent ([id number])By: Melinda Sloan IMMUNIZ ADMNIN, 1 VAC, SNGL/COMBO On: 26-Jan-2006 Intent ([id number])By: Melinda Sloan Planned Medications INJECTION, CEFTRIAXONE SODIUM, PER 250 MG Ordered: 23-Sep-2015 Pending Penny Shukla CNP Instructions Name Dates Details Non-smoker : How to access health information online Indication: Non-smoker Non-smoker : How to access health information online - Detail Indication: Non-smoker Non-smoker : Patient Instructions Indication: Non-smoker Diarrhea in adult patient : Patient Instructions Indication: Diarrhea in adult patient Non-smoker : How to access health information online Indication: Non-smoker Non-smoker : How to access health information online - Detail Indication: Non-smoker Non-smoker : Patient Instructions Indication: Non-smoker BMI 27.0-27.9,adult : How to access health information online Indication: BMI 27.0-27.9,adult BMI 27.0-27.9,adult : How to access health information online - Detail Indication: BMI 27.0-27.9,adult BMI 27.0-27.9,adult : Patient Instructions Indication: BMI 27.0-27.9,adult Abnormal glucose tolerance test : How to access health information online Indication: Abnormal glucose tolerance test Abnormal glucose tolerance test : How to access health information online - Detail Indication: Abnormal glucose tolerance test Abnormal glucose tolerance test : Patient Instructions Indication: Abnormal glucose tolerance test Non-smoker : How to access health information online Indication: Non-smoker Non-smoker : How to access health information online - Detail Indication: Non-smoker Non-smoker : Patient Instructions Indication: Non-smoker Screening mammogram, encounter for : How to access health information online Indication: Screening mammogram, encounter for Screening mammogram, encounter for : How to access health information online - Detail Indication: Screening mammogram, encounter for Screening mammogram, encounter for : Patient Instructions Indication: Screening mammogram, encounter for BMI 25.0-25.9,adult : Patient Instructions Indication: BMI 25.0-25.9,adult Abnormal glucose tolerance test : How to access health information online Indication: Abnormal glucose tolerance test Abnormal glucose tolerance test : How to access health information online - Detail Indication: Abnormal glucose tolerance test Abnormal glucose tolerance test : Patient Instructions Indication: Abnormal glucose tolerance test Physical exam for work or camp (Renamed from School physical exam) : Patient Instructions Indication: Physical exam for work or camp (Renamed from School physical exam) Cellulitis of hand : How to access health information online Indication: Cellulitis of hand Cellulitis of hand : How to access health information online - Detail Indication: Cellulitis of hand Cellulitis of hand : Patient Instructions Indication: Cellulitis of hand Flu-like symptoms : How to access health information online Indication: Flu-like symptoms Flu-like symptoms : How to access health information online - Detail Indication: Flu-like symptoms Flu-like symptoms : Patient Instructions Indication: Flu-like symptoms Hypertension : How to access health information online Indication: Hypertension Hypertension : How to access health information online - Detail Indication: Hypertension Hypertension : Patient Instructions Indication: Hypertension Abnormal glucose tolerance test : Patient Instructions Indication: Abnormal glucose tolerance test Small vessel disease, cerebrovascular : Patient Instructions Indication: Small vessel disease, cerebrovascular Abnormal glucose tolerance test : Patient Instructions Indication: Abnormal glucose tolerance test Headache : Patient Instructions Indication: Headache Abnormal glucose tolerance test : Patient Instructions Indication: Abnormal glucose tolerance test Hyperlipidemia : Patient Instructions Indication: Hyperlipidemia Abdominal pain : Patient Instructions Indication: Abdominal pain Depression : Patient Instructions Indication: Depression Encounters Office Visit On: 28-Oct-2017 10:46 Encounter Reason: Diarrhea - Adult - Onset was 2 week(s) ago. Note for Diarrhea: Started 1-2 hr later with eating taco david. Stools 2 liquid stool. Not lightheaded and dizzi.Cramping and churningRectal dischargeEncounter Diagnosis: End: 28-Oct-2017 11:30 BMI 28.0-28.9,adult, Non-smoker, History of IBS, Abdominal bloating, Diarrhea, unspecified type, Abdominal pain, colicky [facility] Admission Note On: 19-Oct-2017 12:51 Encounter Diagnosis: Hypercholesterolemia End: 19-Oct-2017 13:00 [facility] Office Visit On: 15-Oct-2017 7:31 Encounter Reason: Diarrhea - Adult - Onset was 2 week(s) ago. Note for Diarrhea: Started 1-2 hr later with eating taco david. Stools 2 liquid stool. Not lightheaded and dizzi.Cramping and churningRectal dischargeEncounter Diagnosis: End: 15-Oct-2017 8:24 BMI 27.0-27.9,adult, Non-smoker, Diarrhea in adult patient, Abdominal bruit [facility] Phone Encounter On: 25-Jun-2017 12:25 Encounter Diagnosis: FREDY (obstructive sleep apnea) End: 25-Jun-2017 13:48 [facility] Office Visit On: 25-Jun-2017 11:06 Encounter Reason: Follow up for chronic medical issues - The patient feels well with minor complaints, has good energy level and is sleeping poorly (had sleep study and it was 361 min and quit breathing breathing 51 time End: 25-Jun-2017 12:12 s anything over 40 is severe). Patient has been compliant with instructions. Current medication use: no side effects and compliant with dosing regimen. Nutrition: balanced diet. The medical issues the p atient is following up for include All identified problems below, blood sugar issues, high blood pressure and other. weight :.Encounter Diagnosis: Non-smoker, BMI 27.0-27.9,adult, FREDY (obstructive sleep apnea), Hypercholesterolemia, Abnormal glucose tolerance test (790.22), Iron deficiency anemia, unspecified, RLS (restless legs syndrome), Other headache syndrome, Chronic GERD, Abdominal bloating [facility] Phone Encounter On: 04-May-2017 11:02 Encounter Diagnosis: Sleep apnea, unspecified type End: 07-May-2017 11:08 [facility] Phone Encounter On: 22-Apr-2017 13:35 Encounter Diagnosis: Gasping for breath End: 22-Apr-2017 13:37 [facility] Office Visit On: 22-Feb-2017 15:44 Encounter Reason: Follow up tests - Date: (02/16/17 labs)., [ADDITIONAL REASON] Follow up for chronic medical issues - The patient feels well with minor complai End: 22-Feb-2017 17:11 nts and is sleeping well. Patient has been compliant with instructions. Current medication use: no side effects. Patient sleeps 7 hours per night. Impact of disease: emotional impact-mild. Nutrition: ba lanced diet and supplemental vitamins. blood pressure range : and weight :. Encounter Diagnosis: Abnormal glucose tolerance test (790.22), BMI 26.0-26.9,adult, Non- smoker, Rosacea (695.3), Chronic GERD, Hypercholesterolemia, Osteoporosis, Depression , Small vessel disease, cerebrovascular [facility] Phone Encounter On: 07-Jan-2017 8:47 Encounter Diagnosis: Foot fracture, right End: 07-Jan-2017 9:12 [facility] Office Visit On: 17-Jul-2016 13:53 Encounter Reason: Follow up tests - Date: (06/09/16 labs)., [ADDITIONAL REASON] Follow up for chronic medical issues - The patient feels well with minor complai End: 17-Jul-2016 14:41 nts, has good energy level and is sleeping well. Patient has been compliant with instructions. Current medication use: no side effects and compliant with dosing regimen. Patient sleeps 7 hours per night . Nutrition: balanced diet and supplemental vitamins. The medical issues the patient is following up for include All identified problems below, blood sugar issues, high blood pressure and high cholester ol. weight :. Note for Follow up for chronic medical issues: wake up with h/a at night and I wonder if its sinus and I want a referral to Dr. Broussard Encounter Diagnosis: Non-smoker, BMI 26.0-26.9,adult, Other headache syndrome, Hypercholesterolemia , Abnormal glucose tolerance test (790.22), Hematuria, Urinary urgency, Chronic GERD [facility] Office Visit On: 20-Mar-2016 13:06 Encounter Reason: Follow up tests - Diagnostic tests include other (Bone density ). Date: (). Follow up visit with no current symptoms.Encounter Diagnosis: BMI 25.0-25.9,adult, Screening mammogram, encounter for, Osteoporosis End: 20-Mar-2016 14:47 [facility] Office Visit On: 14-Feb-2016 7:59 Encounter Reason: Follow up for chronic medical issues - The patient feels well with minor complaints, has good energy level and is sleeping poorly. Patient has been compliant with instructions. Current medication use: n End: 14-Feb-2016 9:07 o side effects and compliant with dosing regimen. Patient sleeps 6 hours per night. Nutrition: balanced diet and supplemental vitamins. The medical issues the patient is following up for include All stephenie ntified problems below, blood sugar issues, high blood pressure and high cholesterol.Encounter Diagnosis: Non-smoker, Abnormal glucose tolerance test (790.22), BMI 25.0- 25.9,adult, Skin lesion of face, Hypercholesterolemia, Small vessel disease, cerebrovascular, Chronic GERD, Osteopenia (733.90), History of IBS [facility] Office Visit On: 30-Oct-2015 8:51 Encounter Reason: Physical female exam - Last seen between 1-3 months ago. General health: feels well with minor complaints, has good energy level and is sleeping well. The patient's appetite is normal. Nutrition: normal End: 30-Oct-2015 9:39 /adequate. Exercises 3 days per week. Sleeps on average 7 hours per night. Normal bowel and bladder habits. Safety measures include appropriate use of safety belts and home smoke detectors. There are no current emotional problems. screening, colonoscopy (2014), screening, mammography (03/23) and screening, Pap smear (02/19).Encounter Diagnosis: Physical exam for work or camp (Renamed from School physical exam) [facility] Annotation/Addendum On: 27-Sep-2015 8:05 Encounter Diagnosis: Lyme arthritis of hand, Positive Lyme disease serology End: 27-Sep-2015 10:01 [facility] Annotation/Addendum On: 24-Sep-2015 12:12 Encounter Diagnosis: Arthralgia of right hand End: 24-Sep-2015 12:15 [facility] Office Visit On: 23-Sep-2015 12:01 Encounter Reason: Insect Bite/Sting - The patient sustained an insect bite/sting to the left hand. Note for Insect bite/sting: In July left wrist while using garden gloves and was bitten by something. 8-10 weeks Encounter Diagnosis: End: 23-Sep-2015 13:47 Arthralgia of right hand, Cellulitis of hand [facility] Office Visit On: 06-Sep-2015 13:15 Encounter Reason: Diarrhea - The onset of the diarrhea has been sudden and has been occurring in an intermittent pattern for 1 day. The course has been recurrent. The symptoms have been associated with abdominal pain, fe End: 06-Sep-2015 15:12 jackie and nausea (maybe), while the symptoms have not been associated [place] Note for Diarrhea: body aches on wednesday and diarrhea started yesterday and still some todayEncounter Diagnosis: Flu-like symptoms, Non-smoker, Abdominal pain, Diarrhea in adult patient [facility] Office Visit On: 23-May-2015 7:26 Encounter Reason: Follow up acute care visit - The patient does not feel well. Patient has been compliant with instructions. Current medication use: no side effects and compliant with dosing regimen. Patient sleeps 8 delonte End: 23-May-2015 8:08 rs per night. Nutrition: balanced diet. The medical issues the patient is following up for include high blood pressure (179/97).Encounter Diagnosis: Hypertension, Migraine (346.80), Other headache syndrome, Stress at work [facility] Office Visit On: 03-Aug-2014 6:58 Encounter Reason: Physical female exam - Last seen between 1-3 months ago. General health: feels well with minor complaints, has good energy level and is sleeping well. The patient's appetite is normal. Nutrition: normal End: 03-Aug-2014 7:44 /adequate. Exercises 4 days per week. Sleeps on average 7 hours per night. Normal bowel and bladder habits. Safety measures include appropriate use of safety belts and home smoke detectors. There are no current emotional problems. screening, colonoscopy (2014).Encounter Diagnosis: Annual physical exam [facility] Office Visit On: 02-Jul-2014 11:42 Encounter Reason: Sore Throat - Symptoms include sore throat and odynophagia. The symptoms are symmetrical. The patient describes the pain as burning. Onset was sudden. The symptoms occur constantly. The patient describe End: 02-Jul-2014 12:23 s this as moderate in severity.Encounter Diagnosis: PHARYNGITIS, ACUTE (462.), BRONCHITIS, NOT SPECIFIED ACUTE OR CHRONIC (490.), Cough (786.2), Wheezing (786.07) [facility] Office Visit On: 22-Mar-2014 7:15 Encounter Reason: Follow up for chronic medical issues - The patient feels well with minor complaints, has good energy level and is sleeping well. Patient has been compliant with instructions. Current medication use: no End: 22-Mar-2014 10:39 side effects and compliant with dosing regimen. Patient sleeps 8 hours per night. Nutrition: balanced diet and supplemental vitamins. The medical issues the patient is following up for include All ident ified problems below, blood sugar issues, depression and osteoporosis/osteopenia.Encounter Diagnosis: Depression (311.), GERD (530.81), Migraine (346.80), Abnormal glucose tolerance test (790.22), Hyperlipidemia (272.4), Obsessive-compulsive disorder (300.3), SHINGLES,NEED FOR PROPHYLACTIC VACCINATION AND INOCULATION AGAINST (V05.8) [facility] Phone Encounter On: 29-Dec-2013 12:59 Encounter Diagnosis: Breast cancer screening End: 29-Dec-2013 13:00 [facility] Office Visit On: 12-Oct-2013 7:10 Encounter Reason: Physical female exam - Last seen less than 1 month ago. General health: feels well with minor complaints, has good energy level and is sleeping well. The patient's appetite is normal. Nutrition: normal/ End: 12-Oct-2013 8:05 adequate. Exercises 4 days per week. Sleeps on average 7 hours per night. Normal bowel and bladder habits. Safety measures include appropriate use of safety belts and home smoke detectors. There are no current emotional problems. screening, mammography () and screening, Pap smear (fall 2012).Encounter Diagnosis: Encounter for annual health examination [facility] Office Visit On: 06-Sep-2013 13:23 Encounter Reason: Follow up tests - Diagnostic tests include CT scan. Date: (ct scan 08/24/13). Current symptoms include headache.Encounter Diagnosis: Small vessel disease, cerebrovascular, Hyperlipidemia (272.4), Migraine (346.80) End: 06-Sep-2013 15:50 [facility] Office Visit On: 18-Aug-2013 7:19 Encounter Reason: Follow up tests - Date: (July)., [ADDITIONAL REASON] Follow up for chronic medical issues - The patient does not feel well, has decre End: 18-Aug-2013 8:26 ased energy level and is sleeping poorly. Patient has been compliant with instructions. Current medication use: no side effects and compliant with dosing regimen. Patient sleeps 5 hours per night. Nutri tion: balanced diet and supplemental vitamins. The medical issues the patient is following up for include blood sugar issues. weight :. Encounter Diagnosis: Abnormal glucose tolerance test (790.22), GERD (530.81), Migraine (346.80), Depression (311.) , Hyperlipidemia (272.4), Iron Deficiency Anemia,Unspecified (280.9), Headache, Multifactorial (784.0), ARTHRALGIAS 719.40, Breast pain in female [facility] Phone Encounter On: 28-Mar-2013 14:22 Encounter Diagnosis: INJURY, SUPERF, FOOT/TOE NEC W/O INFECTION (917.8) End: 28-Mar-2013 14:23 [facility] Office Visit On: 17-Feb-2013 7:10 Encounter Reason: Follow up for chronic medical issues - The patient feels well with minor complaints, has decreased energy level and is sleeping poorly. Patient has been compliant with instructions. Current medication u End: 17-Feb-2013 8:20 se: no side effects and compliant with dosing regimen. Patient sleeps 5 hours per night. Nutrition: balanced diet and supplemental vitamins. The medical issues the patient is following up for include blood sugar issues. weight :.Encounter Diagnosis: Abnormal glucose tolerance test (790.22), Hyperlipidemia (272.4), GERD (530.81), Iron Deficiency Anemia,Unspecified (280.9), Headache, Multifactorial (784.0) [facility] Prescription Refill On: 15-Nov-2012 8:24 Encounter Diagnosis: Poison freddy (692.6) End: 15-Nov-2012 8:27 [facility] Office Visit On: 28-Oct-2012 16:37 Encounter Diagnosis: ANEMIA, UNSPECIFIED (285.9) End: 28-Oct-2012 16:38 [facility] Phone Encounter On: 26-Oct-2012 13:06 Encounter Diagnosis: ANEMIA, UNSPECIFIED (285.9), Iron Deficiency Anemia,Unspecified (280.9) End: 26-Oct-2012 14:11 [facility] Phone Encounter On: 17-Oct-2012 16:05 Encounter Diagnosis: Iron Deficiency Anemia,Unspecified (280.9) End: 17-Oct-2012 16:12 [facility] Office Visit On: 01-Sep-2012 8:00 Encounter Reason: Follow up tests - Date: (08/12/12 labs)., [ADDITIONAL REASON] Work PE Encounter Diagnosis: Depression (311.), GERD (530.81), Hyperlipidemia (272.4), Iron Deficiency Anemia,Unspecified (280.9), End: 01-Sep-2012 13:27 Abnormal glucose tolerance test (790.22), ANEMIA, UNSPECIFIED (285.9) [facility] Phone Encounter On: 12-Aug-2012 15:36 Encounter Diagnosis: Hyperlipidemia (272.4) End: 12-Aug-2012 15:38 [facility] Office Visit On: 02-May-2012 8:59 Encounter Reason: Follow up for chronic medical issues - The patient feels well with minor complaints, has good energy level and is sleeping well. Patient has been compliant with instructions. Current medication use: no End: 02-May-2012 9:57 side effects and compliant with dosing regimen. Patient sleeps 7 hours per night. Nutrition: balanced diet and supplemental vitamins. The medical issues the patient is following up for include All ident ified problems below, blood sugar issues, high blood pressure and high cholesterol. weight :.Encounter Diagnosis: Abnormal glucose tolerance test (790.22), Hyperlipidemia (272.4), GERD (530.81), Nausea (787.02), Hypertension (401.0) [facility] Office Visit On: 25-Jan-2012 9:08 Encounter Reason: Abdominal pain - The pain has been occurring for 6 hours (last 6 hours evening).Encounter Diagnosis: Abdominal pain (789.00), Nausea (787.02) End: 25-Jan-2012 10:30 [facility] Office Visit On: 07-Jan-2012 6:50 Encounter Reason: Follow up for chronic medical issues - The patient feels well with minor complaints, has good energy level and is sleeping well. Patient has been compliant with instructions. Current medication use: no End: 07-Jan-2012 7:31 side effects and compliant with dosing regimen. Patient sleeps 7 hours per night. Nutrition: balanced diet and supplemental vitamins. The medical issues the patient is following up for include All ident ified problems below, blood sugar issues, high blood pressure and high cholesterol. blood pressure range : and weight :.Encounter Diagnosis: Abnormal glucose tolerance test (790.22), GERD (530.81), Depression (311.), Obsessive-compulsive disorder (300.3), Hyperlipidemia (272.4), Osteopenia (733.90) [facility] Phone Encounter On: 17-Sep-2011 15:20 Encounter Diagnosis: INJURY, SUPERF, FOOT/TOE NEC W/O INFECTION (917.8) End: 17-Sep-2011 15:23 [facility] Office Visit On: 10-Sep-2011 7:14 Encounter Reason: Physical female exam - Last seen between 3-6 months ago. General health: feels well with minor complaints, has good energy level and is sleeping well. The patient's appetite is normal. Nutrition: normal End: 10-Sep-2011 7:46 /adequate. Exercises 2 days per week. Sleeps on average 6 hours per night. Normal bowel and bladder habits. Safety measures include appropriate use of safety belts and home smoke detectors. There are no current emotional problems. screening, mammography (1 yr) and screening, Pap smear (1 yr).Encounter Diagnosis: EXAMINATION, ROUTINE MEDICAL (V70.0) [facility] Office Visit On: 20-Apr-2011 9:10 Encounter Reason: Follow up for chronic medical issues - The patient feels well with minor complaints, has good energy level and is sleeping well. Patient has been compliant with instructions. Current medication use: no End: 20-Apr-2011 9:52 side effects and compliant with dosing regimen. Patient sleeps 7 hours per night. Nutrition: balanced diet. The medical issues the patient is following up for include All identified problems below, bloo d sugar issues, high blood pressure and high cholesterol. weight :.Encounter Diagnosis: Abnormal glucose tolerance test (790.22), Irritable bowel syndrome (564.1), Hyperlipidemia (272.4), Depression (311.), BRONCHITIS, NOT SPECIFIED ACUTE OR CHRONIC (490.), Cough (786.2), Wheezing (786.07), Osteopenia (733.90), GERD (530.81), Obsessive-compulsive disorder (300.3), Iron Deficiency Anemia,Unspecified (280.9) [facility] Office Visit On: 15-Oct-2010 13:13 Encounter Reason: Follow up for chronic medical issues - The patient feels well with no complaints and has good energy level. Patient has been compliant with instructions. Current medication use: no side effects. Patient End: 16-Oct-2010 12:31 sleeps 7 hours per night. Impact of disease: no overall impact. Nutrition: balanced diet. The medical issues the patient is following up for include All identified problems below, blood sugar issues, g astric reflux, high blood pressure, high cholesterol and osteoporosis/osteopenia. weight :.Encounter Diagnosis: Abnormal glucose tolerance test (790.22), Hyperlipidemia (272.4), GERD (530.81), Irritable bowel syndrome (564.1), Osteopenia (733.90) [facility] Office Visit On: 06-Jun-2010 11:41 Encounter Reason: Skin lesion - The skin lesion appeared gradually and has been occurring for months. It has been increasing in size. The skin lesion is characterized as red and brown. The skin lesion is located on the n End: 06-Jun-2010 13:38 kristie. There has been associated itching and pain.Encounter Diagnosis: Lesion-Unknown behavior (238.2) [facility] Office Visit On: 07-Apr-2010 11:19 Encounter Reason: Follow up for chronic medical issues - The patient feels well with minor complaints, has good energy level and is sleeping well. Patient has been compliant with instructions. Current medication use: no End: 07-Apr-2010 12:17 side effects and compliant with dosing regimen. Patient sleeps 7 hours per night. Nutrition: balanced diet and supplemental vitamins. The medical issues the patient is following up for include All ident ified problems below, blood sugar issues and depression. weight :., [ADDITIONAL REASON] Follow up, Laboratory Test Results - Date: (03/06/10). Encounter Diagnosis: Abnormal glucose tolerance test (790.22), Migraine (346.80), Osteopenia (733.90), GERD (530.81), Hyperlipidemia (272.4), Benign essential hypertension (401.1) [facility] Office Visit On: 04-Dec-2009 8:00 Encounter Reason: Cough - The onset of the cough has been sudden. The cough is characterized as dry. The cough occurs all the time. The symptoms are aggravated by supine posture. The symptoms have been associated with ru End: 04-Dec-2009 8:24 nny nose (clear) and sore throat, while the symptoms have not been associated with dysphagia ,dyspnea ,edema ,fever ,hemoptysis or wheezing. Encounter Diagnosis: BRONCHITIS, NOT SPECIFIED ACUTE OR CHRONIC (490.), Cough (786.2), Wheezing (786.07) [facility] Office Visit On: 26-Sep-2009 11:32 Encounter Reason: Follow up for chronic medical issues - The patient feels well with minor complaints (tinnitus) ,has good energy level and is sleeping well. Patient has been compliant with instructions. Current medicati End: 27-Sep-2009 11:04 on use: no side effects ,compliant with dosing regimen and considered effective by patient. Patient sleeps 7 hours per night. Nutrition: balanced diet and supplemental vitamins. The medical issues the p atient is following up for include All identified problems below ,blood sugar issues ,depression ,gastric reflux ,high blood pressure ,high cholesterol ,osteoporosis/osteopenia and other (IBS, OCD). Encounter Diagnosis: Abnormal glucose tolerance test (790.22), Benign essential hypertension (401.1), Osteopenia (733.90), Low back pain (724.2), Depression (311.), Irritable bowel syndrome (564.1) [facility] Office Visit On: 21-Feb-2009 13:44 Encounter Reason: Follow up for chronic medical issues - The patient feels well with minor complaints ,has good energy level and is sleeping well. Patient has been compliant with instructions. Current medication use: no End: 21-Feb-2009 14:44 side effects and compliant with dosing regimen. Patient sleeps 6 hours per night. Nutrition: balanced diet and supplemental vitamins. The medical issues the patient is following up for include All ident ified problems below ,blood sugar issues ,high blood pressure and high cholesterol. Encounter Diagnosis: Abnormal glucose tolerance test (790.22), Benign essential hypertension (401.1), Hyperlipidemia (272.4), GERD (530.81), Depression (311.), Osteopenia (733.90) [facility] Office Visit On: 21-Jan-2009 11:23 Encounter Reason: Skin lesion - The skin lesion appeared gradually and has been occurring for years. It has been unchanging in size. The skin lesion is characterized as raised above the skin. The skin lesion is located o End: 21-Jan-2009 12:14 n the neck. There has been associated itching and pain. Encounter Diagnosis: Skin Tag, Irritated (701.9) [facility] Office Visit On: 19-Oct-2008 10:45 Encounter Reason: Follow up for chronic medical issues - The patient feels well with minor complaints ,has decreased energy level and is sleeping well. Patient has been compliant with instructions. Current medication use End: 19-Oct-2008 15:25 : no side effects and non-compliant with dosing regimen. Patient sleeps 6 hours per night. Nutrition: inadequate caloric intake and supplemental vitamins. The medical issues the patient is following up for include All identified problems below and depression. , [ADDITIONAL REASON] Chest pain - The onset of the pain has been sudden and has been occurring in an increasing pattern for 5 minutes. The pain is described as a mild to moderate pressure sensation (then got blurred vision and then felt like i was going ot pass out - cp pressure cominmg and going -- in middle of chestgot to work and bp was hi at work). The pain is described as being located in the substernal area. The pain does not radiate. There are no precipitating factors. The symptoms have no agg ravating factors. The symptoms have no relieving factors. , [ADDITIONAL REASON] Follow up, Laboratory Test Results - Date: (10/16/08). Encounter Diagnosis: Abnormal glucose tolerance test (790.22), Hyperlipidemia (272.4), SYMPTOMS INVOLVING RESPIRATORY SYSTEM AND OTHER CHEST SYMPTOMS; OTHER CHEST PAIN (786.59), GERD (530.81), Osteopenia (733.90) [facility] Office Visit On: 16-Jul-2008 10:56 Encounter Reason: Follow up for chronic medical issues - The patient feels well with minor complaints ,has decreased energy level and is sleeping poorly. Patient has been compliant with instructions. Current medication u End: 16-Jul-2008 12:28 se: no side effects and compliant with dosing regimen. Patient sleeps 7 hours per night. Nutrition: balanced diet and supplemental vitamins. The medical issues the patient is following up for include Al l identified problems below ,blood sugar issues ,high blood pressure and high cholesterol. weight :. Encounter Diagnosis: Abnormal glucose tolerance test (790.22), Hyperlipidemia (272.4), TINNITUS, UNSPECIFIED (388.30), Rosacea (695.3), GERD (530.81), Osteopenia (733.90) [facility] Office Visit On: 26-Mar-2008 9:42 Encounter Reason: Follow up for chronic medical issues - The patient feels well with minor complaints ,has good energy level and is sleeping well. Patient has been compliant with instructions. Current medication use: no End: 26-Mar-2008 11:37 side effects and compliant with dosing regimen. Patient sleeps 7 hours per night. Nutrition: balanced diet and supplemental vitamins. The medical issues the patient is following up for include All identified problems below and depression. weight :. Encounter Diagnosis: Abnormal glucose tolerance test (790.22), Hyperlipidemia (272.4), Headache, Multifactorial (784.0), Depression (311.), GERD (530.81), Hypertension (401.0) [facility] Office Visit On: 18-Aug-2007 11:24 Encounter Reason: Follow up for chronic medical issues - The patient feels well with minor complaints (wants to talk to you about the prozac.) ,has decreased energy level and is sleeping poorly. Patient has been complian End: 18-Aug-2007 12:06 t with instructions. Current medication use: experiencing side effects (feels tightness in chest at times and her head feels weird???But she does like it so she would like to give it some time.). Patien t sleeps 6 hours per night. Nutrition: balanced diet and supplemental vitamins. Encounter Diagnosis: Abnormal glucose tolerance test (790.22), Hyperlipidemia (272.4), Osteopenia (733.90), GERD (530.81), Irritable bowel syndrome (564.1), Obsessive-compulsive disorder (300.3) [facility] Office Visit On: 02-Aug-2007 11:15 Encounter Reason: Follow up Meds - The patient feels well with minor complaints (went back down to 50 zoloft - feeling -- it may not be working?? ). Patient has been compliant with instructions. Current medication use: e End: 02-Aug-2007 11:39 xperiencing side effects (irritability-- side effect vs ?? OCD/ADD ). Impact of disease: emotional impact-mild. Nutrition: balanced diet. Encounter Diagnosis: Depression (311.), Obsessive-compulsive disorder (300.3) [facility] Office Visit On: 02-Feb-2007 15:18 Encounter Reason: Follow up for chronic medical issues - The patient feels well with no complaints ,has good energy level and is sleeping well. Patient has been compliant with instructions. Current medication use: no isaiah End: 02-Feb-2007 16:26 e effects and compliant with dosing regimen. Patient sleeps 7 hours per night. Nutrition: balanced diet and supplemental vitamins. The medical issues the patient is following up for include All identifi ed problems below ,blood sugar issues ,high blood pressure and high cholesterol. blood pressure range :. , [ADDITIONAL REASON] Follow up, Laboratory Test Results - Date: (01-12-07). Encounter Diagnosis: Abnormal glucose tolerance test (790.22), Hyperlipidemia (272.4), Migraine (346.80), Need for prophylactic vaccination and inoculation against influenza (V04.81) [facility] Office Visit On: 06-Oct-2006 14:54 Encounter Reason: Follow up, Laboratory Test Results - Date: (09-23-06). Current symptoms/reason for visit include/s Follow up visit with no current symptoms. There is a family history of breast cancer (M granmother) , End: 06-Oct-2006 16:26 ile there is no family history of cardiovascular disease ,cystic fibrosis ,Down's syndrome ,mental retardation or myocardial infarction before age 55. Past medical history includes gastroesophageal refl ux disease ,hypertension ,peripheral vascular disease and other (IBS, ABN GTT). Encounter Diagnosis: Hyperlipidemia (272.4), Hypertension (401.0), GERD (530.81), Abnormal glucose tolerance test (790.22), Iron Deficiency Anemia,Unspecified (280.9) [facility] Office Visit On: 01-Jul-2006 13:18 Encounter Reason: Follow up for chronic medical issues - The patient feels well with minor complaints ,has decreased energy level and is sleeping poorly. Patient has been compliant with instructions. Current medication u End: 01-Jul-2006 15:36 se: no side effects ,compliant with dosing regimen and considered effective by patient. Patient sleeps 5 hours per night. Impact of disease: emotional impact-mild. Nutrition: balanced diet and supplemen nunu vitamins. The medical issues the patient is following up for include depression ,gastric reflux ,high cholesterol ,osteoporosis/osteopenia and other (migraines, low back pain ). , [ADDITIONAL REASON] Chest pain - The onset of the pain has been gradual and has been occurring in a decreasing pattern for weeks. The pain is described as a moderate (8.5-9/10) dull ache (with sitting) and sharp pain (with movement, coughing and deep breathes). The pain is described as being located in the left chest. The pain does not radiate. The symptoms are aggravated by coughing and deep breathi ng. The symptoms have no relieving factors. Note for Chest pain: Ibuprofen for a few days. Able to palpate it. Left chest at breast. Recent Mammogram Encounter Diagnosis: Depression (311.), Migraine (346.80), Hyperlipidemia (272.4), SYMPTOMS INVOLVING RESPIRATORY SYSTEM AND OTHER CHEST SYMPTOMS; OTHER CHEST PAIN (786.59) [facility] Office Visit On: 04-Mar-2006 11:36 Encounter Reason: Follow up for chronic medical issues - The patient feels well with minor complaints (Seen yesterday for LAL's.) ,has good energy level and is sleeping poorly (d/t lal's). Patient has been compliant with i End: 04-Mar-2006 22:11 nstructions. Current medication use: no side effects and considered effective by patient. Patient sleeps 6 hours per night. Nutrition: balanced diet. The medical issues the patient is following up for i nclude All identified problems below ,blood sugar issues ,depression ,fibromyalgia and gastric reflux. , [ADDITIONAL REASON] Heartburn - The onset of the heartburn has been variable and has been occurring in an intermittent pattern for minutes. The course has been recurrent. The heartburn is characterized as burning. The heartburn is described as being located in the upper epigastrium. The symptoms are relieved by antacids (and PPI). , [ADDITIONAL REASON] Headache/ - The onset of the headache/ has been variable and has been occurring in an intermittent pattern for months. The course has been recurrent. The headache/ is characterized as a dull ache. The headache/ is described as being located in the right side. The symptoms are aggravated by noise and bright light. The headache/ is relieved by NSAIDs (and relpax). , [ADDITIONAL REASON] Depression - The onset of the depression has been variable and has been occurring in an intermittent pattern for years. The course has been recurrent. The depression is described as feeling sad. Encounter Diagnosis: Headache, Multifactorial (784.0), GERD (530.81), Abnormal glucose tolerance test (790.22), Osteopenia (733.90), Depression (311.), Other specified menopausal and postmenopausal disorders (627.8), Hyperlipidemia (272.4), Low back pain (724.2), Irritable bowel syndrome (564.1) [facility] Office Visit On: 03-Mar-2006 10:49 Encounter Reason: Follow up, Diagnostic Procedure Results - Diagnostic tests include CT scan and MRI. Follow up visit with no current symptoms. , [ADDITIONAL REASON] Headache/ - The onset of the headache/ has been variable and has been occurring End: 03-Mar-2006 11:24 in an intermittent pattern for years. The course has been recurrent. The headache/ is characterized as moderate and unilateral. The headache/ is described as being located in the temporal area (right si de). There has been no associated anxiety ,blurring of vision ,eye congestion or eye pain. The headache/ is relieved by NSAIDs (more by relpax---but takes as last resort). 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
--- OUTSIDE RECORDS SUMMARY | 2018-04-05 19:31 | XMS RPT_ITS | Continuity of Care Document ---
:1950 Author Organization [facility] Address [address] [place] [address] Phone Care Team Providers Name Role Phone Shila Dinh DO Unavailable James Reis DO Unavailable Becka VILLELA, Dr. Brennon Dempsey Unavailable Jourdan Astorga MD Unavailable Nestor Diaz Unavailable Yari Ayon MD Unavailable Amy Kearney Unavailable Unavailable NAVIN Kearney Christina Unavailable Dr. 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 Status: Active Hematuria (R31.9, 599.70) Status: Active [...] excessive caff?, prolapse?-- pt can discuss with 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 Status: Active Wheezing (R06.2, 786.07) Status: Active Medications Name Dates Details Cyclobenzaprine HCl 10 MG Oral Tablet 1 [...] DO, DO, Kathleen Start : 01-Dec-2017 Active Omeprazole 20 MG Oral Tablet Delayed Release [...] 0 days Refills: 0 Ordered:26-Sep-2009 Mast RN, Niteshctive Xifaxan 550 MG Oral Tablet 1 (one) Tablet tid for 3 days Quantity: 9 {Tablet} Refills: 0 Ordered:7-Dec-2018 Zuleikacarlitosestuardo HOLDENPenny Start : 11-Feb-2018 Active ASPIRIN EC, 81MG (Oral Tablet Delayed Release) [...] days Quantity: 20 {Capsule} Refills: 0 Ordered:23-Sep-2015 Vazquez HOLDENPenny Start : 23-Sep-2015 End : 03-Oct-2015 Inactive CHERATUSSIN AC, 100-10MG/5ML (Oral Solution) 1-2 Teaspoon qhs prn for 0 days Quantity: 6 {Ounce} Refills: 0 Ordered:03-Aug-2014 Shari Scott LPN Start : 02-Jul-2014 End : 03-Aug-2014 Inactive Cinnamon 500 MG Oral Capsule 2 qd for 0 days Refills: 0 Ordered:11-Feb-2018 Vazquez HOLDENPenny End : 11-Feb-2018 Inactive Cipro 500 MG Oral Tablet 1 (one) Tablet bid for 7 days Quantity: 14 {Tablet} Refills: 0 Ordered:15-Oct-2017 Vazquez HOLDENPenny Start : 15-Oct-2017 End : 22-Oct-2017 Inactive Diflucan 150 MG Oral Tablet 1 (one) Tablet bid for 7 days Quantity: 14 {Tablet} Refills: 0 Ordered:15-Oct-2017 Vazquez HOLDENPenny Start : 15-Oct-2017 End : 22-Oct-2017 Inactive [...] Start : 17-Feb-2013 End : 27-Mar-2013 Inactive Niacin ER 500 MG Oral Tablet Extended Release 2 (two) Tablet ER qd for 0 days Quantity: 60 {Tablet} Refills: 3 Ordered:11-Feb-2018 Penny Shukla CNP Start : 23-May-2015 End : 11-Feb-2018 Inactive Comments:1000mg XR OTC 05/23/15 jradha PREDNISONE, 10MG (Oral Tablet) uad Tablet 2 [...] qd for 0 days Refills: 0 Ordered:26-Sep-2009 Mast Mandi OCASIO End : 26-Sep-2009 Discontinued Comments:This order discontinued [...] Completed Comments: 02/22/12 Date Value Details 20-Oct-2017 Needle Valve Operator Office Visit Report Result: Comments: See Note; NOTES: [facility]'s Care [address] [place], [place] [address]manuel. [address] [place] [address] OFFICE VISIT Date of Service: 10/20/17 MR#: [id number] Acct: [id number] Name: RAINA YAO Rep #: [id number] : 1950 Provider: SHANE Villela Age/Sex: 67/F Location[place] [facility] Status: Signed Intake Vital Signs10/20/17 Height 5 ft 8 in 10/20/17 Weight: 185 lb 2 oz 10/20/17 Body Mass Index (BMI) 28.1 10/20/17 Blood Pressure 134/82 Intake Visit Reasons: ANNUAL Cocktail Waitress Required: No Is patient in pain?: No [...] 60 mg/mL subcutaneous syringe 60 mg SC [id number] 07/19/17 [History Confirmed 10/20/17] fluoxetine 10 mg [...] household members: spouse housing: house 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 DatName GA/WeeksOutcome Route [facility] LocaProviderFOB e ht en tn Unknown 1977 Kaufman kael Unknown 1980 Shama as HPI ANNUAL: Details: RAINA YAO is a 67 year old who presents for annual exam. Last:2017 History of abnormal PAP: no Last mammogram: [...] alert, oriented to person, oriented to place [facility] Head: normal to inspectio n Neck Neck: [...] 1 year, prn with problems Geri Villela CODE ENFORCEMENT OFFICER Orders Orde rs: Medications New: Coding Level of Care Code Off vis,est,prev 65+yrs Diagnoses Encounter for gynecological examination without abnormal finding Z01.419 Gynecological examination findings: abnormal findings ABSENT Age-related osteoporosis without current pathological fracture M81.0 Osteoporosis type: age-related Presence of current pathological fracture: without current pathological fracture 0 10/20/17 1221 <Electronically signed by Geri MILLANC> Date Geri MILLANC Cosigner Signature: Date (if applicable) CC: 19-Oct-2017 Aorta Result: Comments: See Note; NOTES: [facility] Imaging Services [address] [place] [address] Aorta MR#: [id number] Acct: [id number] Name: TORIBIO YAO Rep #: [id number] : [birth year] F 67 From: Win Vizcaino MD PCP: Shila Dinh DO Status: REG CLI Study: Aorta Date of Exam: 10/19/17 Exam# [id number] Ordering Dr: Penny Shukla PROCEDURES: ULTRASOUND AORTA [...] calcific plaque. No evidence of aneurysmal dilatation. Anuradha holt Signed: Win Vizcaino MD at 9:34 EDT Tel [phone], Service support , CC: Penny Shukla WEB RETAILER; Shila Dinh DO Policy Service Coordinator: Signed 18-Oct-2017 Pulmonary Visit Report Result: Comments: See Note; NOTES: [facility] [address] [place] [address] OFFICE VISIT Date of Service: 10/18/17 MR#: [id number] Acct: [id number] Name: TORIBIO BALBUENA Rep #: [id number] : 1950 Provider: Donald Lane MD Age/Sex: 67/F Location[place] [facility] [place] Status: Signed Assessment AND Plan Problems 1. [...] loss. Plan Detail Follow Up 1 Year (BWA) HPI 3 M FU: Chief Complaint: Follow-up [...] to bed between 830 and 9:00. 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 Musculoskelet al: Negative body pain, back pain, [...] distended or ascites Genitourinary: Positive def erred [facility] Musculoskeletal: Positive steady gait and ROM normal; [...] Visit Report Result: Comments: See Note; NOTES: [facility] [place] [address] OFFICE VISIT Date of Service: 10/05/17 MR#: [id number] Acct: [id number] Patient: TORIBIO YAO Estuardo Rep #: [id number] : 1950 Provider: RHEA Mcneill Age/Sex: 67/F Location[place] [facility] [place] Status: Signed Intake Vital Signs10/05/17 Height 5 [...] unit capsule 1,000 un it PO QDAY 07/19/17 [History Confirmed 10/05/17] cinnamon bark 500 mg capsule 1,000 mg PO QDAY cap 07/19/17 [History Confirmed 10/05/17] denosumab 60 mg/mL subcutaneous syringe 60 mg SC [id number] [History Confirmed 10/05/17] fluoxetine 10 mg capsule 20 mg PO DAILY cap 07/19/17 [History Confirmed 10/05/17] loperamide 2 mg capsule 2 mg PO Q1-4H PRN #20 cap 10/05/17 [Rx Confirmed 10/05/17] ondans etron HCl 4 mg tablet 4 mg PO BID-TID PRN #20 tab 10/05/17 [Rx Confirmed 10/05/17] PFSH Medical History Sinusitis, acute (Acute) Abdominal [...] members: spouse housing: house 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 [place] [address] OFFICE VISIT Date of Service: 08/20/17 MR#: [id number] Acct: [id number] Name: TORIBIO BALBUENA Rep #: [id number] : 1950 Provider: Amy Kearney Age/Sex: 67/F Location[place] [facility] Status: Signed Assessment AND Plan 1. FREDY (obstructive sleep apnea) G47.33 Status Acute Plan S howing improvement. No change in Pap settings. No indication for titration study at this point. Keep previously scheduled follow-up with Dr. Lane in October. She has been encouraged to contact the [facility] if she has any difficulties in [...] daily consistently. She has not tried any nhhw-wiw-hetuthp medications for her sleep. 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 [place] [address] OFFICE VISIT Date of Service: 07/19/17 MR#: [id number] Acct: [id number] Name: TORIBIO BALBUENA Rep #: [id number] : 1950 Provider: Amy Kearney Age/Sex: 66/F Location: [facility] Status: Signed Assessment AND Plan 1. FREDY (obstructive sleep apnea) G47.33 Status Acute Plan N ew. Adjust AutoPap from 7-14 cm of water down to 5-12 cm water. Encouraged her to discuss the burning sensation she rinses with the use of her nasal pillows with the [employer], consider alternative ma sks. Follow-up in [...] score of 53.4 events per hour. Was john o noted that while in the supine [...] 60 mg/mL subcutaneous syringe 60 mg SC [id number] 07/19/17 [History Con firmed 07/19/17] eletriptan 20 [...] 07/19/17 1258 <Electronically signed by Amy Kearney WEB RETAILER-C&a mp;#62; Date Amy Kearney NP-C Cosigner Signature: Date (if applicable) CC: Shila Dinh DO 22-Jun-2017 SCREENING MAMM (CAD), BILAT Result: Comments: See Note; NOTES: [facility] Imaging Services [address] [place] [address] SCREENING MAMM (CAD), BILAT MR#: [id number] Acct: [id number] Name: TORIBIO YAO Rep #: [id number] : 1950 F 66 From: Win Vizcaino MD PCP: Shila Dinh DO Status: [facility] Study: SCREENING MAMM (CAD), BILAT Date of Exam: 06/22/17 Exam# [id number] Ordering Dr: Geri VillelaC MAMMOGRAPHY - BILATERAL SCREENING REASON FOR EXAM: [...] delay biopsy of a clinically suspicious abnormality. [id number] Electronically Signed: Win Vizcaino MD at 8:23 EDT Tel [phone], Service support , CC: SHANE Villela; Shila Dinh DO Policy Service Coordinator: Signed 26-Feb-2017 Urgent Care Visit Report Result: Comments: See Note; NOTES: [facility] [address] [place] [address] OFFICE VISIT Date of Service: 02/26/17 MR#: [id number] Acct: [id number] Name: TORIBIO YAO p #: [id number] : 1950 Provider: Junior JOY Age/Sex: 66/F Location: [facility] [place] Status: Signed Intake Vital Signs02/26/17 Height 5 [...] mg PO DAILY 06/29/14 [History Confirmed 02/26/17] Ahmeek-3 Fatty Acids/Fish Oil [Fish Oil 1,000 mg [...] chills, sweats. She has trie d several nrld-ipm-qyqtpug medications with no relief. She denies nausea, [...] <Electronically signed by Junior JOY> Date Junior Huynh Signature: Date (if applicable) CC: 15-Feb-2017 Foot min 3 Views Result: Comments: See Note; NOTES: [facility] Imaging Services [address] [place] [address] Foot min 3 Views MR#: [id number] Acct: [id number] Name: TORIBIO YAO Rep #: [id number] D OB: 1950 F 66 From: Rashid Posadas DO PCP: Shila Dinh DO Status: REG CLI Study: Foot min 3 Views Date of Exam: 02/15/17 Exam# [id number] Ordering Dr: Chuckie Patel PA-C STUDY: X-RAY [...] of the fifth metacarpal. Electronically Signed: Rashid CuauhtemocDO at 11:23 EST Tel [phone], Service support , Didier C: Shila Dinh DO; Chuckie JOY Policy Service Coordinator: Signed 22-Jan-2017 Foot min 3 Views Result: Comments: See Note; NOTES: [facility] Imaging Services [address] [place] [address] Foot min 3 Views MR#: [id number] Acct: [id number] Name: TORIBIO YAO Rep #: [id number] D OB: 1950 F 66 From: Himanshu Gates MD PCP: Shila Dinh DO Status: REG CLI Study: Foot min 3 Views Date of Exam: 01/22/17 Exam# [id number] Ordering Dr: Chuckie Patel PA-C STUDY: X-RAY [...] Himanshu Gates, at 10:05 EST Tel , Servic e support , CC: Shila Dinh DO; Chuckie JOY Policy Service Coordinator: Signed 05-Jan-2017 Foot min 3 Views Result: Comments: See Note; NOTES: [facility] Imaging Services [address] [place] [address] Foot min 3 Views MR#: [id number] Acct: [id number] Name: TORIBIO YAO Rep #: [id number] D OB: 1950 F 66 From: Win Vizcaino MD PCP: Shila Dinh DO Status: REG CLI Study: Foot min 3 Views Date of Exam: 01/05/17 Exam# [id number] Ordering Dr: Chuckie Patel PA-C STUDY: X-RAY [...] Win Vizcaino MD at 13:06 EDT Tel [phone], Service support , CC: Shila Dinh DO; Chuckie JOY Policy Service Coordinator: Signed 27-Apr-2016 SCREENING MAMM (CAD), BILAT Result: Comments: See Note; NOTES: [facility] Imaging Services [address] [place] [address] Verdana 4d SCREENING MAMM (CAD), BILAT MR#: [id number] Acct: [id number] Name: MICHELLE YAO Rep #: [id number] : 1950 F 65 From: Win Vizcaino MD PCP: Shila Dinh DO Status: REG CLI Study: SCREENING MAMM (CAD), BILAT Date of Exam: 04/27/16 Exam# [id number] Ordering Dr: Shila England DO MAMMOGRAPHY - [...] delay biopsy of a clinically suspicious abnormality. [id number] Electronically Signed: Win Vizcaino MD a t 7:48 EST Tel [phone], Service support [phone], CC: Shila Dinh DO Policy Service Coordinator: Signed 25-Feb-2016 Dexa Bone Density Study (HP) Result: Comments: See Note; NOTES: [facility] Imaging Services [address] [place] [address] Verdana 4d Dexa Bone Density Study (HP) MR#: [id number] Acct: [id number] Name: LEXI YAO Rep #: [id number] : 1950 F 65 From: Elgin Ibanez MD PCP: Shila Dinh DO Status: REG CLI Study: Dexa Bone Density Study (HP) Date of Exam: 02/25/16 Exam# [id number] Ordering Dr: Tad Dinh DO STUDY: DUAL [...] at 8:34 EST Tel , Service support [phone], CC: Shila Dinh DO Policy Service Coordinator: Signed 08-Oct-2015 Upper Ext Joint Only(Routine) Result: Comments: See Note; NOTES: [facility] Imaging Services [address] [place] [address] Verdana 4d Upper Ext Joint Only(Routine) MR#: [id number] Acct: [id number] Ntae e: TORIBIO YAO Rep #: [id number] : 1950 F 65 From: Tre Covarrubias MD PCP: Shila Dinh DO Status: REG CLI Study: Upper Ext Joint Only(Routine) Date of Exam: 10/08/15 Exam# [id number] Ordering Dr: Nestor Diaz STUDY: MRI LEFT [...] FACR at 9:49 EDT , Service support [phone], CC: Shila Diaz Policy Service Coordinator: Signed 24-Sep-2015 Hand Min 3 Views Result: Comments: See Note; NOTES: [facility] Imaging Services [address] [facility] [place] [place] [address] Nia 4d Hand Min 3 Views MR#: [id number] Acct: [id number] Name: RAINA YAO Rep #: [id number] : 1950 F 65 From: Win Vizcaino MD PCP: Shila Dinh DO Status: REG CLI Study: Hand Min 3 Views Date of Exam: 09/24/15 Exam# [id number] Ordering Dr: Nidhi Diaz STUDY: X-RAY - [...] Win Vizcaino MD at 10:44 EDT Tel [phone], Service suppo rt [phone], RAD/Hand Min 3 Views IMPRESSION: Normal x-ray examination of the hand. Electronically Signed: Win Vizcaino MD at 10:44 ED T Tel [phone], Service support [phone], CC: Shila Diaz Policy Service Coordinator: Signed 29-May-2015 12 Lead Electrocardiogram Result: Comments: See Note; NOTES: [facility] Cardiovascular Services [address] [place] [address] 12 Lead EKG 05/27/15 0921 MR#: [id number] Acct: [id number] Name: TORIBIO BALBUENA Rep #: [id number] : 1950 64 From: Wilber Carpio MD Attending Dr: Radha Mcdowell MD Status: REG CLI Ordering Dr: Radha Mcdowell MD Date: 05/27/15 Location: [facility] Sex: F C Admitted: Test Reason : HYPERTENSION Blood Pressure : / mmHG Vent. Rate : 061 BPM Atrial Rate : 061 BPM P-R Int : 162 ms QRS Dur : 090 ms QT Int : 394 ms P-R-T Axes : 063 035 040 degrees QTc Int : 396 ms Normal sinus rhythm Normal ECG Confirmed by WILBER CARPIO MD ([id number]), editor map CHRISTOPHER SALDAÑA ([id number]) on 05/29/2015 9:48:33 AM Referred By: STEPHANIE Confirmed By:WILBER CARPIO MD 05/29/15 0948 D ate Wilber Carpio MD CC: Shila Dinh DO Date Dictated: 05/27/15920 Date Transcribed: 05/27/15920 Policy Service Coordinator: Signed 20-Mar-2015 Unilat Rt Diag Digital AND CAD Result: Comments: See Note; NOTES: [facility] Imaging Services [address] [place] [address] Verdana 4d Unilat Rt Diag Digital AND CAD MR#: [id number] Acct: [id number] Na me: TORIBIO YAO Rep #: [id number] : 1950 F 64 From: Win Vizcaino MD PCP: Shila Dinh DO Status: REG CLI Study: Unilat Rt Diag Digital AND CAD Date of Exam: 03/20/15 Exam# [id number]: Geri Villela WEB RETAILER-Didier MAMMOGRAPHY - UNILATERAL DIAGNOSTIC: RIGHT BREAST REASON [...] Win Vizcaino MD at 13:09 EST Tel [phone], [email or web address] e support [phone], CC: Shila Dinh DO; Geri Villela Policy Service Coordinator: Signed 18-Mar-2015 Bilat Scrn Digital AND CAD Result: Comments: See Note; NOTES: [facility] Imaging Services [address] [place] [address] Verdana 4d Bilat Scrn Digital AND CAD MR#: [id number] Acct: [id number] Name: TORIBIO YAO Rep #: [id number] : 1950 F 64 From: Win Vizcaino MD PCP: Shila Dinh DO Status: [facility] CLI Study: Bilat Scrn Digital AND CAD Date of Exam: 03/18/15 Exam# [id number] Or jud Dr: Geri Villela WEB RETAILER-C MAMMOGRAPHY - BILATERAL SCREENING REASON FOR EXAM: [...] biops y of a clinically suspicious abnormality. [id number] Electronically Signed: Win Vizcaino MD at 8:10 EST Tel [phone], Service support [phone], CC: Lizandro Dinh DO; Geri Villela Policy Service Coordinator: Signed 04-Jul-2014 History and Physical Exam Result: Comments: See Note; NOTES: [facility] Medical Records Department [address] [place] [address] History and Physical 06/29/14 0729 MR#: [id number] Acct: [id number] Name: TORIBIO YAO Rep #: [id number] : 1950 63 From: Good Finley MD PCP: Shila Dinh DO Status: [facility] Location: EN DATE OF SERVICE: DATE OF [...] Sincerely, Adenike Finley MD T: NTS JOB: [id number] 07/04/14 0658 <Electronically signed by Good Finley MD> Date: Time: Good Finley MD CC: Good Finley; Shila Dinh DO Date Dictated: 06/29/14728 Date Transcribed: 06/29/14728 Policy Service Coordinator: Signed ____ I have re- examined the patient. There are no clinical change s since date of exam. ____ See Progress Notes for Changes ____ Dictated on Admission Date: Time: Signature: 04-Jul-2014 Operative Report Result: Comments: See Note; NOTES: [facility] Medical Records Department [address] [place] [address] Operative Report MR#: [id number] Acct: [id number] Name: TORIBIO YAO p #: [id number] : 1950 63 From: Good Finley MD [...] and external pressure. Cecum was identified by soboba's foot appearance, appendiceal orifice, and ileocecal valve. [...] examination. Good Finley MD T: NTS JOB: [id number] 07/04/14 0658 <Electronically signed by Good Finley MD> Date Good Finley MD CC: Good Finley; Shila Dinh DO Date Dictated: 06/29/14730 Date Transcribed: 06/29/14730 Policy Service Coordinator: Signed 21-Feb-2014 Bilat Diag Digital AND CAD Result: Comments: See Note; NOTES: [facility] Imaging Services [address] [place] [address] Breast Imaging Report MR#: [id number] Acct: [id number] Name: TORIBIO YAO Rep #: [id number] : 1950 F 63 From: Win Vizcaino MD PCP: Shila Dinh DO Status: REG CLI Study: Bilat Diag Digital AND CAD Date of Exam: 02/21/14 Exam# [id number] Ordering Dr: Emmanuel Villela MAMMOGRAPHY - BILATERAL [...] Vizcaino MD 2 at 9:23 EST Tel [phone], Service support [phone], CC: Shila Dinh DO; GERI VILLELA Policy Service Coordinator: Signed 21-Feb-2014 Breast Unilateral Result: Comments: See Note; NOTES: [facility] Imaging Services [address] [place] [address] Ultrasound Report MR#: [id number] Acct: [id number] Name: TORIBIO YAO Rep #: [id number] : 1950 F 63 From: Win Vizcaino MD PCP: Shila Dinh DO Status: REG CLI Study: Breast Unilateral Date of Exam: 02/21/14 Exam# [id number] Ordering Dr: Geri Villela STUDY : ULTRASOUND [...] Win Vizcaino MD at 9:24 EST Tel [phone], Service support [phone], CC: Shila Dinh DO; GERI VILLELA Policy Service Coordinator: Signed 08-Jan-2014 Foot min 3 Views Result: Comments: See Note; NOTES: [facility] Imaging Services [address] [place] [address] Radiology Report MR#: [id number] Acct: [id number] Name: TORIBIO YAO Rep #: [id number] : 1950 F 63 From: Win Vizcaino MD PCP: Shila Dinh DO Status: REG CLI Study: Foot min 3 Views Date of Exam: 01/08/14 Exam# [id number] Ordering Dr: Ngoc Smith STUDY: X-R AY [...] Win Vizcaino MD at 16:04 EST Tel [phone], Service support [phone], CC: Hayes Dinh DO; Ngoc Smith DPM Policy Service Coordinator: Signed 14-Dec-2013 Brain W/WO Contrast Result: Comments: See Note; NOTES: [facility] Imaging Services [address] [place] [address] MRI Report MR#: [id number] Acct: [id number] Name: TORIBIO YAO Rep #: [id number] : 1950 F 63 From: Ang Castañeda MD PCP: Shila Dinh DO Status: REG CLI Study: Brain W/WO Contrast Date of Exam: 12/14/13 Exam# [id number] Ordering Dr: Joshua Tate MD STUDY: MRI [...] Ang Castañeda MD at 19:21 EDT T [phone], Service support [phone], CC: Shila Dinh DO; Joshua Tate MD Policy Service Coordinator: Signed 24-Aug-2013 Brain/Head W/WO Contrast Result: Comments: See Note; NOTES: [facility] Imaging Services [address] [place] [address] CAT Scan Report MR#: [id number] Acct: [id number] Name: TORIBIO YAO Rep #: [id number] : 1950 F 63 From: Daisha eDlaney MD PCP: Shila Dinh DO Status: REG CLI Study: Brain/Head W/WO Contrast Date of Exam: 08/24/13 Exam# [id number] Ordering Dr: Shila Dinh DO STUDY: CT [...] MD at 16:30 EDT , Service support [phone], CC: Shila Dinh DO Policy Service Coordinator: Signed Immunization Name Dates Details Influenza (3 years and up) on: 26-Jan-2006 Influenza (3 years and up) on: 02-Feb-2007 Comments: 0.5 cc given im lt arml lot [id number] exp 09-05-07 Tdap (7 years and up) on: 16-Jul-2008 Comments: Lot #[id number]-left deltoidDose0.5mlgiven by Juan F Fine LPN Family History Unknown Family Member Name Dates Details Father Comments: Diabetes Status: Active Mother Comments: Rheumatoid arthritis Status: Active Social History Name Dates Details Caffeine Use Comments: 3 QD Status: Active 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 Status: Active Smoking Status Name Dates Details Never smoker Vital Signs Date Test Result Details :27 Temperature 98 f Comments: Method: Temporal Pulse 73 /min Comments: Pattern: Regular Respiration Rate 16 /min Comments: Pattern: Unlabored O2 SAT 98 % Comments: Room air BP Systolic 124 mm[Hg] Comments: Patient Position: Sitting; Cuff Location: Left Arm; Cuff Size: Standard BP Diastolic 76 mm[Hg] Comments: Patient Position: Sitting; Cuff Location: Left Arm; Cuff Size: Standard Weight 187.375 lb Height 68 in Body Mass Index Calculated 28.49 kg/m2 Body Surface Area Calculated 1.99 m2 :49 Pulse 77 /min Comments: Pattern: Regular Respiration [...] Height 0 in Head Circumference 0.00 cm :49 Temperature 98.1 f Comments: Method: Undefined Pulse [...] 0.00 cm Results Date Description Value Details 77-Zcj-182384:41 Hemoglobin A1c Comments: [facility] Uyidomklpn3241 [facility] [place], [address] HGB A1C 5.4 % (Normal) Range: 4.2-6.3 73-Dtl-561044:20 CDIFF (Molecular) Comments: [facility] Aggsdckjjq6[address] [place], [address] CDIFF See Note (Normal) Comments: Cdiff-MolecularNormal Reference Range = Negative C. Diff DNA Negative- No toxigenic C. Diff DNA DetectedNAAT METHOD Testing was performed using nucleic acid amplification 83-Lbk-404863:20 Stool Lactoferrin/WBC Comments: [address] [place], [place], [address] WBCST See Note (Normal) Comments: Stool Lacto/WBCNormal Reference Range = Negative Fecal WBC Lactoferrin Negative: No Fecal WBC Lactoferrin present 3-Irs-826735:45 ENTERIC PATHOGEN PANEL STOOL Comments: [address] [place], [place], [id number] EP PANEL See Note (Normal) Comments: Reason [...] DetectedVIBRIO Not DetectedNorovirus Not DetectedRotavirus Not Detected 9-Ikq-607159:45 Stool Lactoferrin/WBC Comments: [address] [place], [place], [address] WBCST See Note (Normal) Comments: Reason for Exam: Diarrhea Stool Lacto/WBCNormal Reference Range = Negative Fecal WBC Lactoferrin Negative: No Fecal WBC Lactoferrin present 16-Wdo-02390:04 CBC, Employee Comments: [address] [place], [place], [address] Absolute Lymph 1.53 {X10_3/ul} (Normal) Range: 0.83-4.51 [...] 4.2-5.4 WBC 5.4 K/mm3 (Normal) Range: 4.4-11.0 43-Jyz-98315:04 Employee Profile Comments: [facility] Pjtfrrczls9418 Rachel [place], [place], [address] LDH 175 U/L (Normal) Range: 84-246 VLDL [...] Comments: Please note revised GLUCOSE reference range knwoiubrc42/02/2018. 34-Rcr-01937:04 Nicotine Urine Drug Screen Comments: [facility] Nqqeddveon4[address] [place], [address] COT DRG SCREEN Negative (Normal) Comments: Cotinine [...] result, particularly whenpreliminary positive results are used. 14-Nyy-96527:04 Urinalysis, Employee Comments: [facility] Xbuxrznrbd6819 [address] [place], [place], [address] LEUK ESTERASE 25 /ul (Abnormal) OCCULT BLOOD-UR 10 /ul (Abnormal) NITRITE UR Negative (Normal) UROBILI Normal mg/dL (Normal) PROT DIPSTX 15 mg/dL (Abnormal) pH UR 7.0 (Normal) Range: 5.0 - 8.0 SP.GR. DIPSTX 1.010 (Normal) Range: 1.002-1.030 KETONE UR Negative mg/dL (Normal) BILIRUBIN URINE Negative mg/dL (Normal) GLUCOSE, UR Normal mg/dL (Normal) CLARITY Sl. Cloudy (Normal) COLOR Yellow (Normal) 51-Hbg-76658:29 CBC W/Diff, Automated Comments: [facility] Hnstfjocdr5830 [address] [place], [place], [address] Absolute Lymph 1.26 {X10_3/ul} (Normal) Range: 0.83-4.51 [...] 4.2-5.4 WBC 4.9 K/mm3 (Normal) Range: 4.4-11.0 56-Wxe-77434:29 Comprehensive Metabolic Profil Comments: [facility] Qocnfecryf4879 [place], [address] GAP 6 (Normal) Range: 5-15 CO2 29.0 [...] Comments: Please note revised GLUCOSE reference range lwhdaygbk43/02/2018. 45-Yrz-92589:29 Ferritin Comments: [facility] Gcbxlrywci7090 [place], [address] FERRITIN 18 ng/mL (Normal) Range: 8-252 73-Fyh-66770:29 Hemoglobin A1c Comments: [facility] Ilqajhzrjv0400 [place], [address] HGB A1C 5.2 % (Normal) Range: 4.2-6.3 :29 Iron+Iron Binding Capacity Comments: [facility] Sqangphcmw9915 [place], [address] IRON SATURATION 17.0 % (Normal) Range: 15.0-55.0 IRON 73 ug/dL (Normal) Range: 50-170 TIBC 429 ug/dL (Normal) Range: 250-450 85-Scp-17943:29 Microalb:Creat Ratio,Random UR Comments: [facility] Gurtypyqts4118 [place], [address] MALB:CREAT 17.3 {mg/g_CRE} (Normal) MICROALBUMIN,UR 5.3 mg/L (Normal) UR CREAT 30.80 mg/dL (Normal) 44-Ckq-34684:29 Thyroid Stim Hormone (TSH) Comments: [facility] Gyajysjbbe6294 [place], [address] TSH 1.61 {uIU/mL} (Normal) Range: 0.358-3.74 71-Qjp-014842:54 Hemoglobin A1c Comments: [facility] Urrdznpxgw7183 [address] [place], [address] HGB A1C 5.6 % (Normal) Range: 4.2-6.3 :00 PAP I-G HPV Hi Risk Comments: CYTOLOGY INFORMATION:- CLINICAL INFORMATION:- DATE LMP/MENOPAUSE:- COLLECTION VIAL: Thin Prep Vial- SPORTS PSYCHOLOGIST SOURCE: CERVICAL- COLLECTION TECHNIQUE: BRUSH/SPATULASpecimen Comment: [id number] Comment: No. of containers..01 CYTYC Thin Prep VialLabCorp (refer to report for specific site)refer to report for address and phone number HPV HC,HGH RISK Negative Comments: This high-risk HPV test detects thirteen high-risk types(16/18/31/33/35/39/45/51/52/56/58/59/68) withoutdifferentiation.Performed at: - [facility] [id number] (Normal) b Director: Sarahi Posadas MD, Phone: [phone] at: = - [facility] [id number] Director: Sarahi Posadas MD, Phone: [phone] PAPSMR Comment Comments: The Pap smear is [...] Pathologist (Normal) PERFORM Comment Comments: Belkys Mcbride, Coal Equipment Operator (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 Endocervical and/or squamous metaplasticcells (endocervical component) are present. (Normal) DIAGN Comment Comments: NEGATIVE FOR INTRAEPITHELIAL LESION AND MALIGNANCY.REACTIVE CELLULAR CHANGES AND/OR REPAIR ARE PRESENT. (Normal) 9-Sci-139468:50 Hemoglobin A1c Comments: [facility] Yxbwbthgev5060 [address] [place], [place], [address] HGB A1C 5.5 % (Normal) Range: 4.2-6.3 09-Jun-20168:08 CBC, Employee Comments: [facility] Gedayprdjp2993 [facility] [place], [place], [address] Absolute Lymph 1.30 {X10_3/ul} (Normal) Range: 0.83-4.51 [...] (Abnormal) Range: 4.4-11.0 09-Jun-20168:08 Employee Profile Comments: [facility] Gkzihqdowc6796 [facility] [place], [place], [address] LDH 166 U/L (Normal) Range: 84-246 VLDL [...] 7-18 GLU 86 mg/dL (Normal) Range: 70-110 4-Apr-74399:08 Nicotine Urine Drug Screen Comments: [facility] Kaxbnswrsi65[address] [place], [place], [address] COT DRG SCREEN Negative (Normal) Comments: Cotinine [...] Employee Comments: How was Urine Obtained? CLEAN [facility] Mvklhdlenr2964 [facility] [place], [address] LEUK ESTERASE 25 /ul (Abnormal) OCCULT BLOOD-UR 10 /ul (Abnormal) NITRITE UR Negative (Normal) UROBILI Normal mg/dL (Normal) PROT DIPSTX 15 mg/dL (Abnormal) pH UR 7.0 (Normal) Range: 5.0 - 8.0 SP.GR. DIPSTX 1.005 (Normal) Range: 1.002-1.030 KETONE UR Negative mg/dL (Normal) BILIRUBIN URINE Negative mg/dL (Normal) GLUCOSE, UR Normal mg/dL (Normal) CLARITY Clear (Normal) COLOR Yellow (Normal) :06 CBC W/Diff, Automated Comments: [facility] Esrksmozhg5[address] [place], [place], [address] Absolute Lymph 1.42 {X10_3/ul} (Normal) Range: 0.83-4.51 [...] 4.2-5.4 WBC 4.1 K/mm3 (Abnormal) Range: 4.4-11.0 09-Jun-20168:06 Comprehensive Metabolic Profil Comments: [facility] Pfbsljjehe1859 [place], [address] GAP 1 (Abnormal) Range: 5-15 CO2 28.0 [...] (Normal) Range: 70-110 :06 Hemoglobin A1c Comments: [facility] [address] [place], [address] HGB A1C 5.7 % (Normal) Range: 4.2-6.3 :06 Microalb:Creat Ratio,Random UR Comments: [facility] [address] [place], [address] MALB:CREAT 4.8 {mg/g_CRE} (Normal) MICROALBUMIN,UR 6.4 mg/L (Normal) UR CREAT 132.00 mg/dL (Normal) 09-Jun-20168:06 Thyroid Stim Hormone (TSH) Comments: [facility] [address] [place], [address] TSH 1.17 {uIU/mL} (Normal) Range: 0.358-3.74 09-Jun-20168:06 Urinalysis, Complete Comments: How was Urine Obtained? CLEAN [facility] [address] [place], [address] MUCUS, URINE RARE {/hpf} (Normal) BACTERIA [...] Yellow (Normal) :06 Vitamin D,25 Hydroxy Comments: [facility] Zgngmxuzbn6014 [address] [place], [place], [address] Vitamin D 25-OH 35.4 ng/mL (Normal) Comments: Vitamin D 25(OH) Status Range Deficiency <20 ng/mL (50nmol/L) Insuffciency 20 - 30 ng/mL (50 - 75 nmol/L) Sufficiency 30 - 100 ng/mL (75 - 250 nmol/L) Toxicity >100 ng/mL (>250 nmol/L) 8-Uuj-194675:23 Hemoglobin A1c Comments: [facility] Tkrlwqgpgj1566 [address] [place], [place], [address] HGB A1C 5.7 % (Normal) Range: 4.2-6.3 :11 CBC, Employee Comments: [facility] Farcncrrxo8465 [address] [place], [place], [address] Absolute Lymph 1.62 {X10_3/ul} (Normal) Range: 0.83-4.51 [...] (Normal) Range: 4.4-11.0 :11 CBC, Employee Comments: [facility] [address] [place], [place], [address](421) RDW SD 40.2 fL (Normal) Range: 35.1-43.9 RDW CV 13.3 % (Normal) Range: 11.6-14.6 :11 Employee Profile Comments: [facility] [address] [place], [place], [address] LDH 181 U/L (Normal) Range: 84-246 VLDL [...] 7-18 GLU 91 mg/dL (Normal) Range: 70-110 09-Oct-20159:11 Nicotine Urine Drug Screen Comments: [facility] Tqhldhgfhl[address] [place], [place], [address] COT DRG SCREEN Negative (Normal) Comments: Cotinine [...] Employee Comments: How was Urine Obtained? CLEAN [facility] Y[address]elygari[address] [place], [address] LEUK ESTERASE 25 /ul (Abnormal) OCCULT BLOOD-UR 10 /ul (Abnormal) NITRITE UR Negative (Normal) UROBILI Normal mg/dL (Normal) PROT DIPSTX 15 mg/dL (Abnormal) pH UR 7.0 (Normal) Range: 5.0 - 8.0 SP.GR. DIPSTX 1.010 (Normal) Range: 1.002-1.030 KETONE UR Negative mg/dL (Normal) BILIRUBIN URINE Negative mg/dL (Normal) GLUCOSE, UR Normal mg/dL (Normal) CLARITY Clear (Normal) COLOR Yellow (Normal) 65-Ski-073395:54 CBC W/Diff, Auto - EPLAB Comments: [facility] [address] [place], [place] [address]VLO DIRECTOR REID MUHAMMAD D.O.[phone] [address]xsowbqssk[address] [place], [place], [address] Only SMEAR COMMENT SCANNED (Normal) Comments: 1+ [...] 4.4-11.0 :53 Basic Metabolic Profile (BMP) Comments: [facility] Dzpvllgsol5348 [facility] [place], [address] GAP 8 (Normal) Range: 5-15 [...] HOMEOSTASIS per A.D.A. criteria. :53 CRP Comments: [facility] Ejgivyonvb3683 [address] [place], [place], [address] C-REACTIVE PROT 6.43 mg/L (Abnormal) Range: 0.0-3.0 Comments: C-Reactive Protein (CRP) provides useful information for thediagnosis, therapy and monitoring of inflammatory processesand associated diseases. For the evaluation of Relative Riskfor Cardiovascular Dise ase, a High Sensitivity CRP (HSCRP)should be ordered. :53 Erythrocyte Sed Rate Comments: [facility] Xrtevpqyro9148 [place], [address] SED RATE 29 mm/h (Normal) Range: 0-30 [...] positivity are those recommended byCDC/ASTPHLD. p23=Osp C, i57=fvanpmqggUdlo:Sera from individuals with the following may cross [...] Ab Absent (Normal) P93 Ab Absent (Normal) :53 Lyme Screen W/Reflex WB Comments: [facility] (refer to report for specific site)refer to report for address and phone number LYME SCN INTERP REF LAB (Normal) LYME SCN AB <0.91 {ISR} (Normal) Range: 0.00-0.90 Comments: Negative <0.91 Equivocal 0.91 - 1.09 Positive >1.09Performed at: [address] [id number] Director: Ollie Shook MD, Phone: [phone] at: [address] [id number] Director: Mal Ann PhD, Phone: [phone] 3-Bpx-495754:35 CDIFF (Molecular) Comments: [address] [place], [address] CDIFF See Note (Normal) Comments: Cdiff-MolecularC. Diff DNA Negative- No toxigenic C. Diff DNA Detected :35 Ova and Parasites 8623 Comments: [address] [place], [address] OP See Note Comments: O + P 8623OVA AND PARASITES EXAM, ROUTINE These results were obtained using wet preparation(s) and trichrome stained smear. This test does not include testing for Crytosporidium parvum, C (Normal) yclospora, or Microsporidia. TESTING PERFORMED AT [facility]. ORIGINAL REPORT ON FILE IN LAB CONTAINS ADDITIONAL TEST SITE INFORMATION. ____ :35 Stool Lactoferrin/WBC Comments: [facility] Ashtonbvep[address] [place], [address] WBCST See Note (Normal) Comments: Stool Lacto/WBCFecal WBC Lactoferrin Positive: Fecal WBC Lactoferrin present 6-Jvf-370641:35 Stool Occult Blood iFOB Comments: [facility] Pvtigxvbdi4452 [address] [place], [place], [address] STOB See Note (Normal) Comments: STOB iFOBOccult Blood Positive ORGANISM 1: OCCULT BLOOD POSITIVE :52 CBC W/Diff, Automated Comments: [facility] Cokuaexucv8[address] [place], [place], [address] Absolute Lymph 0.81 {X10_3/ul} (Abnormal) Range: 0.83-4.51 [...] 4.2-5.4 WBC 4.8 K/mm3 (Normal) Range: 4.4-11.0 :52 Comprehensive Metabolic Profil Comments: [facility] Iwxuuxzqwm0663 [facility] [place], [address] GAP 9 (Normal) Range: 5-15 CO2 25.0 [...] Range: 70-110 :52 Erythrocyte Sed Rate Comments: [facility] Kaormsxqmz8820 [place], [address] SED RATE 12 mm/h (Normal) Range: 0-30 :52 Thyroid Stim Hormone (TSH) Comments: [facility] Qdwklsopfj7449 [place], [address] TSH 0.73 {uIU/mL} (Normal) Range: 0.358-3.74 :02 Hemoglobin A1c Comments: [facility] Mjlbvdfikd35[address] [place], [place], [address] HGB A1C 5.4 % (Normal) Range: 4.2-6.3 :58 CBC W/Diff, Auto - EPLAB Comments: At [facility] Oncologypatients receive CBC w/auto Differential ONLY. Physicianwill place an order for a manual differential or Pathologistreview at his discretion. [facility]. [address] [place] [place] [address] VISION IMPAIRED TEACHER: REID MUHAMMAD DO PH:[phone] Community Hospital Yqgjtouvsh54[address] [place], [place], [address] Absolute Lymph 1.27 {X10_3/uL} (Normal) Range: 0.83-4.51 [...] 4.2-5.4 WBC 6.4 K/mm3 (Normal) Range: 4.4-11.0 :58 Comprehensive Metabolic Profil Comments: [facility] Rtyoplruvj0852 [place], [address] GAP 2 (Abnormal) Range: 5-15 CO2 28.0 [...] 7-18 GLU 85 mg/dL (Normal) Range: 70-110 45-Ghv-72898:58 Lipid Profile Comments: [facility] Cfpgoqvrrr9366 [address] [place], [place], [address] VLDL 7 mg/dL (Normal) Range: 5-40 LDL [...] Risk :58 Thyroid Stim Hormone (TSH) Comments: [facility] Qtvrdlrvvu36[address] [place], [address] TSH 0.98 {uIU/mL} (Normal) Range: 0.358-3.74 :58 Urinalysis, Complete Comments: How was Urine Obtained? [facility], [facility] [address]hyjzdqymy0314 [place], [address] MUCUS, URINE 0 SEEN {/hpf} (Normal) BACTERIA [...] (Normal) CLARITY Clear (Normal) COLOR Yellow (Normal) 22-Syf-072958:30 Hemoglobin A1c Comments: [facility] [address] [place], [address] HGB A1C 5.3 % (Normal) Range: 4.2-6.3 :52 Hemoglobin A1c Comments: Test performed at:[address] [place] [address] HGB A1C 5.6 % (Normal) Range: 4.2-6.3 Comments: ADDENDA: Review at [facility] visit :42 CBC, Employee Comments: Test performed at:[facility] Vkdlwdxbiz[address] [place] [address] Absolute Lymph 1.31 {X10_3/ul} (Normal) [...] 4.4-11.0 :42 Employee Profile Comments: Test performed at:[facility] [address] [place] [address] LDH 193 U/L (Normal) Range: 87-241 [...] 70-110 :42 Hemoglobin A1c Comments: Test performed at:[facility] Kkejddqehx32[address] [place], [place] [address] HGB A1C 5.5 % (Normal) Range: 4.2-6.3 37-Rgb-54235:42 Urinalysis, Employee Comments: Test performed at:[facility] Ekgbxiwoee1800 [facility] [place] [address] LEUK ESTERASE 25 /ul (Abnormal) OCCULT BLOOD-UR 10 /ul (Abnormal) NITRITE UR Negative (Normal) UROBILI Normal mg/dL (Normal) PROT DIPSTX Negative mg/dL (Normal) pH UR 8.0 (Normal) Range: 5.0 - 8.0 SP.GR. DIPSTX 1.010 (Normal) Range: 1.002-1.030 KETONE UR Negative mg/dL (Normal) BILIRUBIN URINE Negative mg/dL (Normal) GLUCOSE, UR Normal mg/dL (Normal) CLARITY Clear (Normal) COLOR Yellow (Normal) 50-Wyg-421950:05 SALUD CULTURE-OTHER (85567) Comments: PATIENT NOT FASTINGPERFORMED BY: [facility] Zusfpo0251 [facility] [id number] Information: SRC:THRT [id number] Result 1 RRF (Normal) Comments: Routine respiratory pantera Upper Respiratory Culture Final report (Normal) 83-Jxn-889001:48 Rapid Strep Test, Office (62074) Rapid Strep Test, Office Negative (Normal) 86-Ndx-60946:06 CBC W/Diff, Automated Comments: Test performed at:[facility] Tmvpykthut3020 [place] [address] Absolute Lymph 1.35 {X10_3/ul} (Normal) [...] 4.2-5.4 WBC 4.8 K/mm3 (Normal) Range: 4.4-11.0 19-Pjx-19067:06 Comprehensive Metabolic Profil Comments: Test performed at:[facility] Ckmwhmcrrh2314 Rachel [place], [place] [address] GAP 3 (Abnormal) Range: 5-15 CO2 30.0 [...] 7-18 GLU 91 mg/dL (Normal) Range: 70-110 :06 Hemoglobin A1c Comments: Test performed at:[facility] Xtblmuuksc[address] [place] [address] HGB A1C 5.6 % (Normal) Range: 4.2-6.3 :06 Lipid Profile Comments: Test performed at:[facility] [address]wh[address] [place] [address] VLDL 13 mg/dL (Normal) Range: 5-40 LDL [...] :06 Microalb:Creat Ratio,Random UR Comments: Test performed at:[facility] Ggcixibx[address] [place] [address] MALB:CREAT 6.6 {mg/g_CRE} (Normal) MICROALBUMIN,UR 13.2 mg/L (Normal) UR CREAT 197.2 mg/dL (Normal) :06 Thyroid Stim Hormone (TSH) Comments: Test performed at:[facility] R[address]yjtqrqy[address] [place] [address] TSH 0.97 {uIU/mL} (Normal) Range: 0.358-3.74 :06 Urinalysis, Complete Comments: How was Urine Obtained? CLEAN CATCHTest performed at:[facility] Kljdsbarii[address] [place] [address] MUCUS, URINE 0 SEEN {/hpf} (Normal) BACTERIA [...] (Normal) CLARITY Clear (Normal) COLOR Yellow (Normal) :46 CRP < 2.90 mg/L (Normal) Range: 0.0-3.0 Comments: C-Reactive Protein (CRP) provides useful information for thediagnosis, therapy and monitoring of inflammatory processesand associated diseases. For the evaluation of Relative Riskfor Cardiovascular Dise ase, a High Sensitivity CRP (HSCRP)should be ordered. :46 SED tSEDRATE 8 mm/h (Normal) Range: 0-30 :40 CRE GFRAA 95 mL/min (Normal) GFR 78 mL/min (Normal) CREAT 0.8 mg/dL (Normal) Range: 0.6-1.0 :55 BRENDAN Negative (Normal) Comments: Performed at: [facility] [address] [id number] Director: Natanael Archer MD, Phone: [phone] :55 CBCEM Comments: This patient requested that [facility] send to you acopy of their [...] positive 40 - 59Strong positive >59Performed at: [facility] - Lab[address] [id number] Director: Ollie Shook MD, Phone: [phone] :[phone] CRP < 2.90 mg/L (Normal) Range: 0.0-3.0 Comments: C-Reactive Protein (CRP) provides useful information for thediagnosis, therapy and monitoring of inflammatory processesand associated diseases. For the evaluation of Relative Riskfor Cardiovascular Dise ase, a High Sensitivity CRP (HSCRP)should be ordered. :55 EMP Comments: This patient requested that [facility] send to you acopy of their [...] CHOL 176 mg/dL (Normal) Comments: <200 mg/dL Zumjesore574-398 mg/dL Borderline>240 mg/dL High Risk BID 0.11 [...] :55 UAEM Comments: This patient requested that [facility] send to you acopy of their [...] Range: 0.6-1.0 :27 Blood Glucose , Office (92143) Blood Glucose , Office 84 (Normal) Comments: not fasting :27 HgA1C , Office (31088) HgA1C , Office 5.5 % (Normal) Range: [...] CHOL 172 mg/dL (Normal) Comments: <200 mg/dL Vgkwtqwjk902-231 mg/dL Borderline>240 mg/dL High Risk HDL 65 [...] (Normal) Range: 0.358-3.74 :12 HgA1C , Office (39330) HgA1C , Office 5.5 % (Normal) Range: 4.6 - 7.1 :12 Blood Glucose , Office (97963) Blood Glucose , Office 100 (Normal) :28 FE 59 ug/dL (Normal) Range: 50-170 :28 MORNEA 28 ng/mL (Normal) Range: 8-252 :28 TIBC [...] states, despite thesacrifice of some sensitivity.Performed at: [address] [id number] Director: Ollie Shook MD, Phone: [phone] :17 RETIC 1.09 % (Normal) Range: 0.5-1.5 :17 TIBC 474 ug/dL (Abnormal) Range: 250-450 :56 HgA1C , Office (35941) HgA1C , Office 5.1 % (Normal) Range: 4.6 - 7.1 :56 Blood Glucose , Office (10525) Blood Glucose , Office 105 (Normal) :15 [...] CHOL 172 mg/dL (Normal) Comments: <200 mg/dL Pwfqsmqld383-507 mg/dL Borderline>240 mg/dL High Risk :24 MIACRE tMICROCREAT 8.4 {mg/g_CRE} (Normal) MIALB 13.0 mg/L (Normal) CREU 153.6 mg/dL (Normal) :24 TSH 1.37 {uIU/mL} (Normal) Range: 0.358-3.74 :24 [facility] UBAC RARE {/hpf} (Normal) UMUC 1+ {/hpf} [...] UCOL Yellow (Normal) :00 HgA1C , Office (33167) HgA1C , Office 5.3 % (Normal) Range: 4.6 - 7.1 87-Ckc-82506:00 Blood Glucose , Office (12803) Blood Glucose , Office 100 (Normal) 31-Ess-23204:53 GALLBLADDER Radiology Report See Note (Normal) Comments: [...] size of the right kidney. The right exgtjnpndanpcq45.9 cm. Normal renal cortex. The right cortex measures 2.1 cm. Thereisno demonstrated renal mas s or cyst. There is no right hydronephrosis. IMPRESSION:Multiple gallstones. Signed:Win Vizcaino M.D.February 02, 2012 at 10:15:03 AM [id number] Signed GP/GP If you are the [facility] physician and would like to consult with theradiologist who provided this interpretation, please contact Justyn Razo at [phone]. If this radiologist is unavailable, youwill be d irected to another radiologist to assist. If you are a patient with a question regarding this report, pleasecontactyour referring physician directly. Professional Interpretation Provided By: [employer] , Phone , These documents contain legally [...] documents. Dictated on 02/02/12 0905 by Charis VILLELA,ChaparrorieleTranscribed on 02/02/12 1019 by ITS IMPORTSign by Charis VILLELA,Jamie thornton on 02/02/12 1020 Sign by: Win Vizcaino MD :55 CBCMD RBCM NORM C+C {NORMAL} (Normal) PE [...] SED tSEDRATE 9 mm/h (Normal) Range: 0-30 13-Upo-550020:33 URINE SALUD CULTURE (FIDLE Comments: PATIENT NOT FASTINGPERFORMED BY: [facility] Gvlbsu4902 [facility] [id number] Information: SRC:UR [id number] COL COUNT) (29894) Antimicrobial MIHEAD (Normal) Comments: S = Susceptible; [...] Colonies/mL (Normal) Urine Final report Culture,Comprehensive (Normal) 13-Ljw-14122:08 Urinalysis, Office (67867) UA - BILIRUBIN Negative (Normal) UA - BLOOD Hemolyzed Trace (Normal) UA - GLUCOSE Negative (Normal) UA - KETONES Negative mg/dL (Normal) UA - LEUKOCYTE ESTERASE Trace (Normal) UA - NITRITE Negative (Normal) UA - PH 7.5 (Normal) UA - PROTEIN Negative mg/dL (Normal) UA - SPECIFIC GRAVITY 1.010 (Normal) URINE UROBILINGN FIDEL TIMED Normal mg/dL (Normal) :51 HgA1C , Office (64957) HgA1C , Office 5.6 % (Normal) Range: 4.6 - 7.1 :51 Blood Glucose , Office (79662) Blood Glucose , Office 85 (Normal) 05-Qds-160764:53 FOOT,MIN 3 VIEWS Radiology Report See Note [...] Vizcaino M.D.September 17, 2011 at 4:15:11 PM [id number] Signed GP/GP If you are the referring physician and would like to cons ult with theradiologist who provided this interpretation, please contact Justyn Razo at [phone]. If this radiologist is unavailable, youwill be directed to another radiologist to assist . If you are a patient with a question regarding this report, pleasecontactyour referring physician directly. Professional Interpretation Provided By: [employer], Phone , Dictated on 09/17/11 1549 by Charis VILLELA,ChaparrorieleTranscribed on 09/17/11 1621 by ITS IMPORTSign by Win Vizcaino MD on 09/17/11 1622 Sign by: __ Win Vizcaino MD 30-Jul-2011 BID 0.11 mg/dL Range: 0.00-0.30 7:44 (Normal) 71-Lai-19222:44 CBCMD RBCM NORM C+C {NORMAL} (Normal) PE [...] UCOL STRAW (Normal) :18 HgA1C , Office (70553) HgA1C , Office 5.6 % (Normal) Range: 4.6 - 7.1 :18 Blood Glucose , Office (73129) Blood Glucose , Office 108 (Normal) :12 Microscopic Examination Comments: PATIENT WAS FASTINGPERFORMED BY: [email or web address] [place] [id number] Bacteria Few (Normal) Mucus Threads Present (Normal) Epithelial Cells (non renal) 0-10 {/hpf} (Normal) Range: 0 - 10 RBC 0-3 {/hpf} (Normal) Range: 0 - 3 WBC 0-5 {/hpf} (Normal) Range: 0 - 5 :12 Vitamin D Hydroxy (22414) Comments: PATIENT WAS FASTINGPERFORMED BY: [employer] [place] [id number] Vitamin D, 25-Hydroxy 64.8 ng/mL (Normal) Range: 32.0-100.0 Comments: Recent studies consider the lower limit of 32.0 ng/mL to be athreshold for optimal health.Lion AGGARWAL. J Nutr. 2004;135(2):317-22. :12 LIPID PANEL (63489) Comments: PATIENT WAS FASTINGPERFORMED BY: [employer] Fmtjnt5847 [facility] [id number] LDL/HDL Ratio 1.5 {ratio_units} (Normal) Range: 0.0-3.2 LDL Cholesterol Calc 97 mg/dL (Normal) Range: 0-99 VLDL Cholesterol Cl 10 mg/dL (Normal) Range: 5-40 HDL Cholesterol 66 mg/dL (Normal) Comments: According to ATP-III Guidelines, HDL-C >59 mg/dL is considered anegative risk factor for CHD. Triglycerides 51 mg/dL (Normal) Range: 0-149 Cholesterol, Total 173 mg/dL (Normal) Range: 100-199 :12 TSH (74188) Comments: PATIENT WAS FASTINGPERFORMED BY: [employer] [id number] [facility] [id number] TSH 1.160 {uIU/mL} (Normal) Range: 0.450-4.500 :12 URINALYSIS, W/ MICRO (28148) Comments: PATIENT WAS FASTINGPERFORMED BY: [employer] [id number] [facility] [id number] Microscopic Examination See below: (Normal) Microscopic Examination MICRON (Normal) Comments: Microscopic follows if indicated. Nitrite, Urine Negative (Normal) Urobilinogen,Semi-Qn 0.2 mg/dL (Normal) Range: 0.0-1.9 Bilirubin Negative (Normal) Occult Blood Negative (Normal) Ketones Negative (Normal) Glucose Negative (Normal) Protein Negative (Normal) WBC Esterase Negative (Normal) Appearance Clear (Normal) Urine-Color Yellow (Normal) pH 7.0 (Normal) Range: 5.0-7.5 Specific [place] 1.016 (Normal) Range: 1.005-1.030 :12 MICROALBUMIN: CREATININE RATIO Comments: PATIENT WAS FASTINGPERFORMED BY: [facility]6370 [facility] [id number] ([id number]) AND (02472) Microalb/Creat Ratio <.8 {mg/g_creat} (Normal) Range: 0.0-30.0 Microalbumin, Urine <1.0 ug/mL (Normal) Range: 0.0-17.0 Comments: Verified by repeat analysis Creatinine, Urine 118.8 mg/dL (Normal) Range: 15.0-278.0 00-Gon-44148:12 METABOLIC PANEL, COMPREHENSIVE Comments: PATIENT WAS FASTINGPERFORMED BY: JEANIE [facility]CoThe [facility] Tinton FallsZbolqm0265 [facility] [id number] ([id number]) ALT (SGPT) 21 [iU]/L (Normal) Range: 0-40 [...] Glucose, Serum 89 mg/dL (Normal) Range: 65-99 37-Xzp-62792:12 CBC WITH MANUAL DIFF Comments: PATIENT WAS FASTINGPERFORMED BY: [facility]6370 [facility] [id number] Information: [id number] (92053) Immature Grans (Abs) 0.0 {x10E3/uL} (Normal) Range: [...] (Normal) Range: 4.0-10.5 :13 HgA1C , Office (88695) HgA1C , Office 5.6 % (Normal) Range: 4.6 - 7.1 :13 Blood Glucose , Office (41980) Blood Glucose , Office 87 (Normal) 40-Xvm-975622:10 CALCIFIDIOL (12097) VIT D Comments: PATIENT NOT FASTINGPERFORMED BY: [place] 9871270 [facility] [id number] Information: [id number] Vitamin D, 25-Hydroxy 52.8 ng/mL (Normal) Range: 32.0-100.0 Comments: Recent studies consider the lower limit of 32.0 ng/mL to be athreshold for optimal health.Lion AGGARWAL. J Nutr. 2004;135(2):317-22. :19 HgA1C , Office (47375) HgA1C , Office 5.4 % (Normal) Range: 4.6 - 7.1 :19 Blood Glucose , Office (97936) Blood Glucose , Office 100 (Normal) :09 MICROALBUMIN: CREATININE RATIO Comments: PATIENT WAS FASTINGPERFORMED BY: [place] 9871270 [facility] [id number] (27053) AND (73399) Microalb/Creat Ratio 2.6 {mg/g_creat} (Normal) Range: 0.0-30.0 Microalbumin, Urine 2.9 ug/mL (Normal) Range: 0.0-17.0 Creatinine, Urine 109.5 mg/dL (Normal) Range: 15.0-278.0 :09 CBC WITH MANUAL DIFF Comments: PATIENT WAS FASTINGPERFORMED BY: [place] 9871270 [facility] [id number] Information: [id number] (66200) Immature Grans (Abs) 0.0 {x10E3/uL} (Normal) Range: [...] 3.80-5.10 WBC 4.8 {x10E3/uL} (Normal) Range: 4.0-10.5 47-Fwh-16371:09 METABOLIC PANEL, COMPREHENSIVE Comments: PATIENT WAS FASTINGPERFORMED BY: LabCoThe [facility] T[facility] FallsOgiehk0414 [facility] [id number] (92887) ALT (SGPT) 22 [iU]/L (Normal) Range: 0-40 [...] Age Male Female <18 years 9 - 18 - 39 years 8 - 8 - 40 - 59 years 9 - 9 60 years and older 11 - 26 eGFR AfricanAmerican >59 mL/min/1.73 Comments: Note: Persistent [...] Glucose, Serum 81 mg/dL (Normal) Range: 65-99 29-Urg-46510:09 TSH (60886) Comments: PATIENT WAS FASTINGPERFORMED BY: [facility]6370 [facility] [id number] TSH 1.660 {uIU/mL} (Normal) Range: 0.450-4.500 :09 LIPID PANEL (22918) Comments: PATIENT WAS FASTINGPERFORMED BY: [facility]CoThe [facility] FallsXrpqwz6741 [facility] [id number] LDL Cholesterol Calc 100 mg/dL (Abnormal) Range: 0-99 LDL/HDL Ratio 1.3 {ratio_units} (Normal) Range: 0.0-3.2 HDL Cholesterol 75 mg/dL (Normal) Comments: According to ATP-III Guidelines, HDL-C >59 mg/dL is considered anegative risk factor for CHD. VLDL Cholesterol Cl 10 mg/dL (Normal) Range: 5-40 Triglycerides 51 mg/dL (Normal) Range: 0-149 Cholesterol, Total 185 mg/dL (Normal) Range: 100-199 10-Kia-050384:33 Blood Glucose , Office (60651) Blood Glucose , Office 135 (Normal) 44-Ags-329520:33 HgA1C , Office (93729) HgA1C , Office 5.4 % (Normal) Range: 4.6 - 7.1 66-Omw-432455:50 CALCIFIDIOL (46702) VIT D 25 Comments: PATIENT NOT FASTINGClinical Information: [id number] PERFORMED BY: [facility]6370 [facility] [id number] Vitamin D, 25-Hydroxy 45.3 ng/mL (Normal) Range: 32.0-100.0 Comments: Recent studies consider the lower limit of 32.0 ng/mL to be athreshold for optimal health.Lion AGGARWAL. J Nutr. 2004;135(2):317-22. 92-Bds-458097:44 HgA1C , Office (53899) Comments: done km HgA1C , Office 5.6 % (Normal) Range: 4.6 - 7.1 34-Eib-129007:44 Blood Glucose , Office (06388) Comments: done km Blood Glucose , Office 114 (Normal) :01 MYOCARD PERF SPECT REST/STRESS Radiology Report See Note (Normal) Comments: Exam Number: [id number] MYOCARDIAL PERFUSION SCAN 11.5 mCi of Tc99m Sestamibi was injected at rest. The patient thenexercised according to the regular Donald protocol for 9 minutes and 25seco nds attainin g 87% of the maximum predicted heart rate for amaximum work load of 10.7 METs. At peak exercise, 33.7 mCi of Ua32zRgbmjdiqe was injected. Stress images were then obtained. [...] ejection fraction. Reported By: WILBER CARPIO M.D. :47 HgA1C , Office (65735) Comments: done HgA1C , Office 5.4 % (Normal) Range: 4.6 - 7.1 :47 Blood Glucose , Office (07031) Comments: done Blood Glucose , Office 106 [...] (Normal) Range: 5-40 :57 HgA1C , Office (71280) Comments: done HgA1C , Office 5.4 % (Normal) Range: 4.6 - 7.1 :57 Blood Glucose , Office (73835) Comments: done Blood Glucose , Office 93 (Normal) :47 HgA1C , Office (43853) Comments: DONE HgA1C , Office 5.6 % (Normal) Range: 4.6 - 7.1 :47 Blood Glucose , Office (67625) Comments: DONE Blood Glucose , Office 126 [...] 500 mg/dL VLDL 15 mg/dL (Normal) Range: -40 :58 MICROALB:CRE UR MALB:CREAT 7.0 {mg/g_CRE} (Normal) [...] (Normal) Range: 0.34-4.82 :31 HgA1C , Office (44984) HgA1C , Office 5.5 % (Normal) Range: 4.6 - 7.1 :31 Blood Glucose , Office (23762) Blood Glucose , Office 123 (Normal) :19 HgA1C , Office (00017) Comments: done km HgA1C , Office 5.2 % (Normal) Range: 4.6 - 7.1 :19 Blood Glucose , Office (56237) Comments: done km Blood Glucose , Office 103 (Normal) :53 [...] mg/dL VLDL 13 mg/dL (Normal) Range: 5-40 :56 Blood Glucose , Office (59120) Blood Glucose , Office 82 (Normal) :46 [...] mg/dL VLDL 16 mg/dL (Normal) Range: 5-40 :27 Blood Glucose , Office (96409) Blood Glucose , Office 68 (Normal) :27 HgA1C , Office (43118) HgA1C , Office 5.1 % (Normal) Range: [...] Plan of Care Name Dates Details Instructions Non-smoker : Eprescribed prescriptions (G8553) Indication: Non-smoker Diarrhea, unspecified type : Reviewed Lab Indication: [...] and cat scan Indication: Headache Planned Observations OVA & PARASITE DIR SMEAR (42646)Indication: Diarrhea, unspecified type On: 7-Wsd-157376:00 Request OCCULT BLOOD FECES SCREEN (86591)Indication: Diarrhea, unspecified type On: : Request LEUKOCYTE COUNT, FECAL (53919)Indication: Diarrhea, unspecified type On: : Request Clostridium difficile Toxin A+B, EIA (97229)Indication: Diarrhea, unspecified type On: : Request SALUD CULTURE-STOOL (37184)Indication: Diarrhea, unspecified type On: : Request LIPID PANEL (37970)Indication: Hypercholesterolemia On: 48-Tiq-731556:58 Request LEUKOCYTE COUNT, FECAL (23264)Indication: Diarrhea in adult patient On: :02 Request C-DIFFICILE, STOOL (92308)Indication: Diarrhea in adult patient On: :02 Request HGB A1C (36180)Indication: Abnormal glucose tolerance test On: :54 Request Comments: standing order every 4months for one year IRON BINDING CAPACITY (TIBC) (63733)Indication: Iron deficiency anemia, unspecified On: 54 Request IRON (33488)Indication: Iron deficiency anemia, unspecified On: :53 Request FERRITIN (82405)Indication: Iron deficiency anemia, unspecified On: 53 Request TSH (THYROID STIMULATING HORMONE) (31678)Indication: Abnormal glucose tolerance test On: :53 Request MICROALBUMIN: CREATININE RATIO (63470) AND (15772)Indication: Abnormal glucose tolerance test On: 53 Request METABOLIC PANEL, COMPREHENSIVE (95432)Indication: Abnormal glucose tolerance test On: :53 Request LIPID PANEL (14716)Indication: Hypercholesterolemia On: :53 Request CBC with auto diff (71992)Indication: Abnormal glucose tolerance test On: 53 Request HGB A1C (54773)Indication: Abnormal glucose tolerance test On: 71-Buy-810067:08 Request HGB A1C (54980)Indication: Abnormal glucose tolerance test On: 08-Feb-2017 Request HGB A1C (77089)Indication: Abnormal glucose tolerance test On: 14-Nov-2016 Request HGB A1C (88677)Indication: Abnormal glucose tolerance test On: 11-Oct-2016 Request HGB A1C (70077)Indication: Abnormal glucose tolerance test On: 98-Eqr-042378:37 Request HGB A1C (16468)Indication: Abnormal glucose tolerance test On: 13-Jun-2016 Request HGB A1C (90597)Indication: Abnormal glucose tolerance test On: :02 Request CALCIFIDIOL (32884) VIT D 25Indication: Abnormal glucose tolerance test On: :02 Request TSH (91654)Indication: Abnormal glucose tolerance test On: :02 Request URINALYSIS, W/ MICRO (71614)Indication: Abnormal glucose tolerance test On: : Request MICROALBUMIN: CREATININE RATIO (32896) AND (07189)Indication: Abnormal glucose tolerance test On: :02 Request METABOLIC PANEL, COMPREHENSIVE (87424)Indication: Abnormal glucose tolerance test On: :02 Request CBC W/AUTO DIFF WBC (32535)Indication: Abnormal glucose tolerance test On: 14-Feb-20169:01 Request Hemoglobin Glyclated (HGB A1C) (45414)Indication: Abnormal glucose tolerance test On: 12-Nov-2015 Request Lyme Disease Antibody W/ Reflex (33472)Indication: Arthralgia of right hand On: 87-Nlf-047125:39 Request Metabolic Panel, Basic (71555)Indication: Arthralgia of right hand On: :34 Request CBC, Platelets & Auto Diff (13584)Indication: Arthralgia of right hand On: :34 Request C-Reactive Protein (98582)Indication: Arthralgia of right hand On: :33 Request SED RATE ERYTHROCYTE (68497)Indication: Arthralgia of right hand On: :33 Request OVA & PARASITE DIR SMEAR (12093)Indication: Diarrhea in adult patient On: :15 Request OCCULT BLOOD FECES SCREEN (09830)Indication: Diarrhea in adult patient On: :15 Request LEUKOCYTE COUNT, FECAL (40979)Indication: Diarrhea in adult patient On: 9-Fsm-454298:15 Request C-DIFFICILE, STOOL (18537)Indication: Diarrhea in adult patient On: : Request SALUD CULTURE-STOOL (67341)Indication: Diarrhea in adult patient On: : Request Sed Rate Erythrocyte (71175)Indication: Abdominal pain On: :14 Request TSH (87694)Indication: Diarrhea in adult patient On: : Request METABOLIC PANEL, COMPREHENSIVE (45513)Indication: Diarrhea in adult patient On: : Request CBC W/AUTO DIFF WBC (90807)Indication: Diarrhea in adult patient On: : Request Rapid Flu (88924 x 2)Indication: Flu-like symptoms On: : Request Hemoglobin Glyclated (HGB A1C) (26650)Indication: Abnormal glucose tolerance test On: 15-Jul-2015 Request TSH (78578)Indication: Hypertension On: : Request URINALYSIS, W/ MICRO (80601)Indication: Hypertension On: : Request METABOLIC PANEL, COMPREHENSIVE (41164)Indication: Hypertension On: : Request LIPID PANEL (46309)Indication: Hypertension On: : Request CBC with auto diff (43373)Indication: Hypertension On: 74-Gst-06521:03 Request Hemoglobin Glyclated (HGB A1C) (58459)Indication: Abnormal glucose tolerance test On: 17-Mar-2015 Request Hemoglobin Glyclated (HGB A1C) (31268)Indication: Abnormal glucose tolerance test On: 17-Nov-2014 Request Hemoglobin Glyclated (HGB A1C) (03371)Indication: Abnormal glucose tolerance test On: 20-Jul-2014 Request Hemoglobin Glyclated (HGB A1C) (38744)Indication: Abnormal glucose tolerance test On: :24 Request TSH (49411)Indication: Abnormal glucose tolerance test On: : Request URINALYSIS, W/ MICRO (45969)Indication: Abnormal glucose tolerance test On: : Request MICROALBUMIN: CREATININE RATIO (16737) AND (59717)Indication: Abnormal glucose tolerance test On: Request METABOLIC PANEL, COMPREHENSIVE (93255)Indication: Abnormal glucose tolerance test On: Request LIPID PANEL (94232)Indication: Abnormal glucose tolerance test On: Request CBC W/AUTO DIFF WBC (30477)Indication: Abnormal glucose tolerance test On: : Request LIPID PANEL (32793)Indication: Hyperlipidemia On: Request HEPATIC FUNCTION PANEL (26638)Indication: Hyperlipidemia On: :45 Request LIPID PANEL (58370)Indication: Hyperlipidemia On: :45 Request CCP ANTIBODY (14766)Indication: Pain in unspecified joint On: :18 Request SED RATE ERYTHROCYTE (05505)Indication: Pain in unspecified joint On: :18 Request C-REACTIVE PROTEIN (72057)Indication: Pain in unspecified joint On: :18 Request RHEUMATOID FACTOR-QUANT (05397)Indication: Pain in unspecified joint On: :18 Request BRENDAN (ANTINUCLEAR ANTIBODY) (81095)Indication: Pain in unspecified joint On: :18 Request IRON BINDING CAPACITY (TIBC) (39518)Indication: Iron deficiency anemia, unspecified On: :12 Request IRON (64312)Indication: Iron deficiency anemia, unspecified On: 06-Jun-20138:12 Request FERRITIN (38307)Indication: Iron deficiency anemia, unspecified On: :12 Request CBC WITH MANUAL DIFF (39408)Indication: Iron deficiency anemia, unspecified On: :11 Request LIPID PANEL (44601)Indication: Hyperlipidemia On: :11 Request TSH (64005)Indication: Abnormal glucose tolerance test On: :11 Request MICROALBUMIN: CREATININE RATIO (54520) AND (14316)Indication: Abnormal glucose tolerance test On: :11 Request METABOLIC PANEL, COMPREHENSIVE (98242)Indication: Abnormal glucose tolerance test On: :11 Request FERRITIN (70088)Indication: Iron deficiency anemia, unspecified On: 2-Hsk-422732:11 Request CBC, PLATELETS & MANUAL DIFF (88022)Indication: Iron deficiency anemia, unspecified On: 8-Noc-868546:10 Request IRON & TOTAL IRON BINDING CAPACITY (46437)Indication: Iron deficiency anemia, unspecified On: 8-Fxs-354728:08 Request FERRITIN (79794)Indication: Anemia, unspecified On: 81-Zni-688258:12 Request IRON (56440)Indication: Anemia, unspecified On: 29-Mqg-157327:12 Request IRON BINDING CAPACITY (TIBC) (98214)Indication: Anemia, unspecified On: 12-Jnl-912785:11 Request FECAL OCCULT- Tubes sent home (45106)Indication: Anemia, unspecified On: :33 Request TRINIDAD TEST, DIRECT (61316)Indication: Anemia, unspecified On: :33 Request FOLIC ACID SERUM (02867)Indication: Anemia, unspecified On: :33 Request Methylmalonic acid, serum 85039Fwwdglscng: Anemia, unspecified On: :33 Request VITAMIN B-12 (CYANOCOBALAMIN) (79335)Indication: Anemia, unspecified On: :33 Request RETICULOCYTE COUNT MANUL (31440)Indication: Anemia, unspecified On: :33 Request LDH (LD) (LACTATE DEHYDROGENASE) (69933)Indication: Anemia, unspecified On: :33 Request IRON BINDING CAPACITY (TIBC) (94322)Indication: Anemia, unspecified On: :33 Request IRON (26230)Indication: Anemia, unspecified On: :33 Request FERRITIN (73628)Indication: Anemia, unspecified On: :33 Request CBC, PLATELETS & AUT DIFF (46773)Indication: Anemia, unspecified On: :33 Request CBC with manual diff (05546)Indication: Hyperlipidemia On: 6-Rri-256768:36 Request TSH ([id number])Indication: Abnormal glucose tolerance test On: :24 Request URINALYSIS, W/ MICRO (28665)Indication: Abnormal glucose tolerance test On: :24 Request MICROALBUMIN: CREATININE RATIO (87430) AND (18265)Indication: Abnormal glucose tolerance test On: :24 Request METABOLIC PANEL, COMPREHENSIVE (55887)Indication: Abnormal glucose tolerance test On: :24 Request LIPID PANEL (41676)Indication: Abnormal glucose tolerance test On: :24 Request CBC WITH MANUAL DIFF (54746)Indication: Abnormal glucose tolerance test On: :24 Request TSH (31468)Indication: Abnormal glucose tolerance test On: :53 Request URINALYSIS, W/ MICRO (10707)Indication: Abnormal glucose tolerance test On: :53 Request MICROALBUMIN: CREATININE RATIO (08763) AND (49550)Indication: Abnormal glucose tolerance test On: :53 Request METABOLIC PANEL, COMPREHENSIVE (60886)Indication: Abnormal glucose tolerance test On: :53 Request LIPID PANEL (46956)Indication: Abnormal glucose tolerance test On: :53 Request CBC WITH MANUAL DIFF (50337)Indication: Abnormal glucose tolerance test On: :53 Request Sed Rate Erythrocyte (97850)Indication: Abdominal pain On: 81-Hln-518049:23 Request Metabolic Panel, Comprehensive (50684)Indication: Abdominal pain On: 69-Bvh-679716:23 Request CBC with manual diff (46415)Indication: Abdominal pain On: 57-Qvn-653409:23 Request IRON BINDING CAPACITY (TIBC) (02941)Indication: Iron deficiency anemia, unspecified On: :42 Request IRON (27758)Indication: Iron deficiency anemia, unspecified On: :41 Request FERRITIN (10709)Indication: Iron deficiency anemia, unspecified On: :41 Request TSH (39400)Indication: Depression On: :41 Request URINALYSIS, W/ MICRO (66845)Indication: Abnormal glucose tolerance test On: :41 Request MICROALBUMIN: CREATININE RATIO (18040) AND (36616)Indication: Abnormal glucose tolerance test On: :41 Request METABOLIC PANEL, COMPREHENSIVE (39805)Indication: Abnormal glucose tolerance test On: :41 Request LIPID PANEL (75638)Indication: Abnormal glucose tolerance test On: :41 Request CBC WITH MANUAL DIFF (06500)Indication: Abnormal glucose tolerance test On: :41 Request TSH (93833)Indication: Abnormal glucose tolerance test On: :39 Request URINALYSIS, W/ MICRO (93672)Indication: Abnormal glucose tolerance test On: :39 Request MICROALBUMIN: CREATININE RATIO (54746) AND (75888)Indication: Abnormal glucose tolerance test On: :39 Request METABOLIC PANEL, COMPREHENSIVE (16137)Indication: Abnormal glucose tolerance test On: :39 Request LIPOPROTEIN, BLD, BY NMR (53639)Indication: Abnormal glucose tolerance test On: :39 Request LIPID PANEL (77591)Indication: Abnormal glucose tolerance test On: :38 Request CBC WITH MANUAL DIFF (65136)Indication: Abnormal glucose tolerance test On: :38 Request LIPID PANEL (83294)Indication: Hyperlipidemia On: :21 Request Comments: do in 6 months URINALYSIS W/O MICRO (25205)Indication: Abnormal glucose tolerance test On: :58 Request TSH (71452)Indication: Abnormal glucose tolerance test On: :58 Request MICROALBUMIN: CREATININE RATIO (06486) AND (34152)Indication: Abnormal glucose tolerance test On: :58 Request METABOLIC PANEL, COMPREHENSIVE (77471)Indication: Abnormal glucose tolerance test On: :58 Request CBC WITH MANUAL DIFF (30298)Indication: Abnormal glucose tolerance test On: :58 Request LIPID PANEL (60033)Indication: Abnormal glucose tolerance test On: :58 Request METABOLIC PANEL, COMPREHENSIVE (38970)Indication: Abnormal glucose tolerance test On: :58 Request MICROALBUMIN: CREATININE RATIO (45231) AND (51447)Indication: Abnormal glucose tolerance test On: :58 Request IRON BINDING CAPACITY (TIBC) (91829)Indication: Iron deficiency anemia, unspecified On: :57 Request IRON (37589)Indication: Iron deficiency anemia, unspecified On: :57 Request FERRITIN (90631)Indication: Iron deficiency anemia, unspecified On: :57 Request CBC, PLATELETS & AUT DIFF (60397)Indication: Iron deficiency anemia, unspecified On: :57 Request HgA1C , Office (05275)Indication: Abnormal glucose tolerance test On: :56 Request Lipid Panel (25086)Indication: Hyperlipidemia On: :54 Request Comments: do in 3-4 months-- and 12 hr fast Lipid Panel (09523)Indication: Hyperlipidemia On: :41 Request Planned Procedures Ultrasound - Abdomen Complete & On: 11-Feb-2018 Intent PelvisBy: Penny Shukla CNP XR ABDOMEN FLAT PLATE AND ERECT On: 11-Feb-2018 Intent (63394)By: Penny Shukla CNP ULTRASOUND AORTA (23472)By: Vazquez On: 15-Oct-2017 Intent Penny HOLDEN Comments: AND ATTENTION Aorta and Rt RENAL ARTERY SCREENING FOR OBSTRUCTIVE SLEEP APNEA On: 04-May-2017 Intent (56569)By: Shila Dinh DO, DO, Kathleen ATTENDED SLEEP STUDY (96626)By: On: 22-Apr-2017 Intent Shila Dinh DO, DO, Kathleen MAMMOGRAM BREAST BILATERAL SCREENING On: 20-Mar-2016 Intent DIGITAL (40120)By: Shila Dinh DO, DO, Kathleen DEXA SCAN AXIAL SKELETON (60449)By: On: 14-Feb-2016 Intent Shila Dinh DO, DO, Kathleen Rocephin Injection, 2 Gram On: 23-Sep-2015 Intent (J0696)By: Penny Shukla CNP Comments: 280670x92.16299 grams Rocephin2.5 in each syringe - one in R and one L side, hip, IMML ELECTROCARDIOGRAM, COMPLETE (ECG) On: 23-May-2015 Intent (10736)By: Stephanie VILLELA, Radha El Comments: DO AT HOSPITAL Aerosol Treatment (86940)By: Vazquez On: 02-Jul-2014 Intent Penny HOLDEN SPECIMEN HNDLNG/TRNSPRT, OFFC > LAB On: 02-Jul-2014 Intent (59832)By: Vazquez HOLDENPenny IMMUNIZ ADMNIN, 1 VAC, SNGL/COMBO On: 22-Mar-2014 Intent (95914)By: Shila Dinh DO Comments: lot [id number] 02/06/2015location L armroute SQgiven by - msmith VIS and/or ABN signed Shila [place] ([address])By: Allegra DUBON, On: 22-Mar-2014 Intent Shila Jiang DO MAMMOGRAM, SCREENING, BOTH BREAST On: 29-Dec-2013 Intent (28033)By: Shila Dinh DO, DO, Kathleen COMPUTED TOMOGRAPHY ANGIOGRAPHY OF On: 18-Aug-2013 Intent BRAIN WITH CONTRAST (77312)By: Shila Dinh DO, DO, Kathleen Eprescribed prescriptions (G8553)By: On: 17-Feb-2013 Intent Shila Dinh DO, DO, Kathleen EKG ([id number])By: Shila Dinh DO On: 01-Sep-2012 Intent Shila Dinh DO Comments: nsr no acute chg Eprescribed prescriptions ([id number])By: On: 02-May-2012 Intent Shari Scott LPN Eprescribed prescriptions ([id number])By: On: 25-Jan-2012 Intent Shila Dinh DO, DO, Kathleen Ultrasound - GallbladderBy: Allegra On: 25-Jan-2012 Intent Shila DUBON DO, Kathleen Radiology - Foot - LeftBy: Allegra DUBON, On: 17-Sep-2011 Intent Shila Jiang DO Comments: foot and toes EKG ([id number])By: Shila Dinh DO On: 15-Oct-2010 Intent Shila Dinh DO Comments: nsr no acute chgn Inhaler Demonstration ([id number])By: On: 04-Dec-2009 Intent Ciesa Penny HOLDEN E Aerosol Treatment ([id number])By: Ciesa On: 04-Dec-2009 Intent Penny HOLDEN E EKG ([id number])By: Shila Dinh DO On: 26-Sep-2009 Intent Shila Dinh DO Comments: NSR NO ACUTE CHG EKG ([id number])By: Shila Dinh DO On: 19-Oct-2008 Intent Shila Dinh DO Comments: compared to old one mar 16ns no acute changes Echo CompleteBy: Shila Dinh DO On: 19-Oct-2008 Intent Shila Dinh DO Nuclear Stress Test/Stress On: 19-Oct-2008 Intent SPECT/TreadmillBy: Shila Dinh DO, DO, Kathleen TDAP VACCINE >7 IM ([id number])By: Allegra On: 16-Jul-2008 Intent Shila DUBON DO, Kathleen Comments: Lot #[id number]-left deltoidDose0.5mlgiven by Juan F Fine LPN MRI - BrainBy: Shila Dinh DO On: 16-Jul-2008 Intent Shila Dinh DO Comments: mra carotids and brain to eval pulsatile tinnitus EKG ([id number])By: Shari Scott LPN On: 26-Mar-2008 Intent Comments: done awnsr no acute changes-- EKG ([id number])By: Shila Dinh DO On: 18-Aug-2007 Intent Shila Dinh DO IMMUNIZ ADMNIN, 1 VAC, SNGL/COMBO On: 02-Feb-2007 Intent ([id number])By: Shari Scott LPN FLU VAC, SPLIT, >3 YEARS, INTRAMUSC On: 02-Feb-2007 Intent ([id number])By: Shari Scott LPN Comments: 0.5 cc given im lt arml lot [id number] exp 09-05-07 EKG ([id number])By: Shila Dinh DO On: 06-Oct-2006 Intent Shila Dinh DO Comments: NSR NO ACUTE ISCHEMIC CHANGES FLU VAC, SPLIT, >3 YEARS, INTRAMUSC On: 26-Jan-2006 Intent ([id number])By: Melinda Sloan IMMUNIZ ADMNIN, 1 VAC, SNGL/COMBO On: 26-Jan-2006 Intent ([id number])By: Melinda Sloan Planned Medications INJECTION, CEFTRIAXONE SODIUM, PER 250 MG Ordered: 23-Sep-2015 Pending Vazquez HOLDEN Nahed Instructions Name Dates Details Non-smoker : How to access health information online Indication: Non-smoker Non-smoker : How to access health information online - Detail Indication: Non-smoker BMI 28.0-28.9,adult : Patient Instructions Indication: BMI 28.0-28.9,adult Non-smoker : How to access health information [...] Instructions Indication: Depression Encounters Office Visit On: 11-Feb-2018 13:26 Encounter Reason: Diarrhea - Adult - Symptoms include diarrhea, fecal urgency, abdominal cramps, abdominal pain and abdominal bloating. Onset was 2 month(s) ago. Note for Diarrhea: Has had diarrhea since September with wors End: 11-Feb-2018 14:17 ening bloating, pressure and intensity of abdominalChange in bowel habits worseing since September with different problems. Bloating an urgencySeveral weeks of elimination diet.Eats lunch then feels terrible.Encounter Diagnosis: Non-smoker, BMI 28.0-28.9,adult, Diarrhea, unspecified type, Abdominal bloating [facility] Office Visit On: 28-Oct-2017 10:46 Encounter Reason: [...] Encounter Reason: Follow up tests - Date: (6/7/13 labs)., [ADDITIONAL REASON] Work PE Encounter Diagnosis: [...] 26-Jan-2006 17:35 [facility] [employer] [place] [facility] [employer]; estuardo guarantor
--- OUTSIDE RECORDS SUMMARY | 2018-04-05 19:32 | XMS RPT_ITS | Continuity of Care Document ---
:1950 Author Organization [facility] Address [address] [place] [address] Phone Care Team Providers Name Role Phone Shila Dinh DO Unavailable James Reis DO Unavailable Becka VILLELA, Dr. Brennon Dempsey Unavailable Jourdan Astorga MD Unavailable Nestor Diaz Unavailable Yari Ayon MD Unavailable Amy Kearney Unavailable Unavailable NAVIN Kearney Christina Unavailable Dr. Micha Redd Unavailable Penny Shukla CNP Unavailable Ganesh Leon Unavailable Unavailable iVtor GUZMANNSayra Unavailable Unavailable JAMES Scott Unavailable Unavailable [...] fix muscle tension - recommend massage and healthcare advisory services manager Status: Active Hematuria (R31.9, 599.70) Status: Active [...] pt can discuss with crowly or her body repairer Status: Active Wheezing (R06.2, 786.07) Status: Active [...] Quantity: 20 {Capsule} Refills: 0 Ordered:23-Sep-2015 Vazquez HOLDEN Nahed Start : 23-Sep-2015 End : 03-Oct-2015 Inactive CHERATUSSIN AC, 100-10MG/5ML (Oral Solution) 1-2 Teaspoon qhs prn for 0 days Quantity: 6 {Ounce} Refills: 0 Ordered:03-Aug-2014 Shari Scott LPN Start : 02-Jul-2014 End : 03-Aug-2014 Inactive Cinnamon 500 MG Oral Capsule 2 qd for 0 days Refills: 0 Ordered:11-Feb-2018 Vazquez HOLDEN Nahed End : 11-Feb-2018 Inactive Cipro 500 MG Oral Tablet 1 (one) Tablet bid for 7 days Quantity: 14 {Tablet} Refills: 0 Ordered:15-Oct-2017 Vazquez HOLDEN Nahed Start : 15-Oct-2017 End : 22-Oct-2017 Inactive Diflucan 150 MG Oral Tablet 1 (one) Tablet bid for 7 days Quantity: 14 {Tablet} Refills: 0 Ordered:15-Oct-2017 Vazquez HOLDEN Penny Jackson Start : 15-Oct-2017 End : 22-Oct-2017 Inactive Doxycycline Hyclate 100 MG Oral Capsule 1 (one) Capsule bid for 28 days Quantity: 56 {Capsule} Refills: 0 Ordered:27-Sep-2015 Vazquez HOLDEN Penny Jackson Start : 27-Sep-2015 End : 25-Oct-2015 Inactive DOXYCYCLINE HYCLATE, 100MG (Oral Tablet) 1 (one) Tablet bid for 10 days Quantity: 20 {Tablet} Refills: 0 Ordered:06-Mar-2010 Zuleikacarlitosestuardo HOLDENPenny Start : 04-Dec-2009 End : 14-Dec-2009 Inactive [...] days Quantity: 60 {Tablet} Refills: 3 Ordered:11-Feb-2018 Zuleikacarlitosestuardo HOLDENPenny Start : 23-May-2015 End : 11-Feb-2018 Inactive Comments:1000mg XR OTC 05/23/15 jkm PREDNISONE, 10MG (Oral Tablet) uad Tablet 2 [...] Shari Scott LPN End : 26-Mar-2008 Inactive Xifaxan 550 MG Oral Tablet 1 (one) Tablet tid for 3 days Quantity: 9 {Tablet} Refills: 0 Ordered:15-Feb-2018 Zuleikajosselyn NAVINPenny Start : 11-Feb-2018 End : 14-Feb-2018 Inactive ZITHROMAX Z-ABISAI, 250MG (Oral Tablet) 1 [...] Liquid) for 0 days Refills: 0 Ordered:26-Sep-2009 Mast [...] : 07-Apr-2010 Discontinued Comments:This order discontinued per [facility]. VITAMIN D-400, 400UNIT 1 qd for 0 days Refills: 0 Ordered:26-Sep-2009 Mast Mandi OCASIO End : 26-Sep-2009 Discontinued Comments:This order discontinued per [facility]. ZOLOFT, 50MG (Oral Tablet) 1.5 Tablet QD [...] Cholecystectomy Completed Comments: 02/22/12 Date Value Details 11-Feb-2018 Abd Inc Decub and/or Erect Result: Comments: See Note; NOTES: [facility] Imaging Services [address] [place] [address] Abd Inc Decub and/or Erect MR#: [id number] Acct: [id number] Name: TORIBIO YAO Rep #: [id number] : 1950 F 67 From: Juancarlos Polo MD PCP: Shila Dinh DO Status: REG CLI Study: Abd Inc Decub and/or Erect Date of Exam: 02/11/18 Exam# [id number] Ordering Dr: Penny Shukla NP-Didier RICHARD DY: X-RAY - ABDOMEN/PELVIS REASON FOR EXAM: Female, 67 years old. Bloating sensation, diarrhea, abdominal discomfort TECHNIQUE: AP supine and upright views of the abdomen and pelvis. COMPARISON: None . FINDINGS: Normal visualized lung bases. No dilated loops of small bowel. There is gaseous distention and fecal retention of the colon, right more than left. Surgi padmini clips project over the right abdomen. There is no demonstrated free abdominal air. The visualized liver, spleen and kidneys are grossly normal in size and morphology. Normal soft tissue structures . Mild scoliosis towards the left of the lumbar spine. Mild degenerative narrowing of the bilateral hips. RAD/Abd Inc Decub and/or Erect IMPRESSI ON: 1. Nonobstructive bowel gas pattern. 2. Moderate fecal retention. Electronically Signed: Juancarlos Polo MD at 0:39 EST , Service support , CC: Penny Shukla NP; Shila Dinh DO Grinder Set Up Operator Surface: Signed 20-Oct-2017 Diver Assistant Office Visit Report Result: Comments: See Note; NOTES: [facility] [address] [place], [place] [address] OFFICE VISIT Date of Service: 10/20/17 MR#: [id number] Acct: [id number] Name: MAXIMLIIANRAINA Estuardo Rep #: [id number] : 1950 Provider: SHANE Villela Age/Sex: 67/F Location: [facility] Status: Signed Intake Vital Signs10/20/17 Height 5 ft 8 in 10/20/17 Weight: 185 lb 2 oz 10/20/17 Body Mass Index (BMI) 28.1 10/20/17 Blood Pressure 134/82 Intake Visit Reasons: ANNUAL Osha Inspector Required: No Is patient in pain?: No [...] 60 mg/mL subcutaneous syringe 60 mg SC [id number] 07/19/17 [History Confirmed 10/20/17] fluoxetine 10 mg [...] household members: spouse housing: house 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 Pregancy History 2 Elective abortions Hx Para 2 Spontaneou s abortions Past Pregnancies Del. DatName [place]/WeeksOutcome Route [facility] LocaProviderFOB e ht en tn [...] alert, oriented to person, oriented to place HENAK Head: normal to inspectio n Neck Neck: [...] 1 year, prn with problems Geri Villela SHARE HOLDER Orders Orde rs: Medications New: Coding Level [...] 19-Oct-2017 Aorta Result: Comments: See Note; NOTES: [facility] Imaging Services [address] [place] [address] Aorta MR#: [id number] Acct: [id number] Name: TORIBIO YAO Rep #: [id number] : [birth year] F 67 From: Win Vizcaino MD PCP: Shila Dinh DO Status: REG CLI Study: Aorta Date of Exam: 10/19/17 Exam# [id number] Ordering Dr: Penny Shukla PROCEDURES: ULTRASOUND AORTA [...] Win Vizcaino MD at 9:34 EDT Tel [phone], Service support , CC: Penny Shukla AIRCRAFT INSTRUMENT MECHANIC; Shila Dinh DO Grinder Set Up Operator Surface: Signed 18-Oct-2017 Pulmonary Visit Report Result: Comments: See Note; NOTES: [facility] [address] [place] [address] OFFICE VISIT Date of Service: 10/18/17 MR#: [id number] Acct: [id number] Name: TORIBIO BALBUENA Rep #: [id number] : 1950 Provider: Donald Lane MD Age/Sex: 67/F Location: [facility] Status: Signed Assessment AND Plan Problems 1. [...] loss. Plan Detail Follow Up 1 Year ([facility]) [facility] 3 M FU: Chief Complaint: Follow-up sleep [...] 18 Intake Visit Reasons: 3 M FU Osha Inspector Required: No DME Vendor: [employer] Accompanied by: Self Is patient in pain?: [...] 60 mg/mL subcutaneous syringe 60 mg SC [id number] 07/19/17 [History Confirmed 10/18/17] fluoxetine 10 mg capsule 20 mg PO DAILY cap [History Confirmed 10/18/17] loperamide 2 mg capsule 2 mg PO Q1-4H PRN #20 cap 10/05/17 [Rx Confirmed 10/18/17] ondansetron HCl 4 mg tablet 4 mg PO BID- TID PRN #20 tab 10/05/17 [Rx Confirmed 10/18] [facility] History Sinusitis, acute (Acute) Abdominal bloating [...] household members: spouse housing: house 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 [address] OFFICE VISIT Date of Service: 10/05/17 MR#: [id number] Acct: [id number] Patient: TORIBIO YAO Rep #: [id number] : 1950 Provider: RHEA Mcneill Age/Sex: 67/F Location: [facility] Status: Signed Intake Vital Signs10/05/17 Height 5 [...] 60 mg/mL subcutaneous syringe 60 mg SC [id number] [History Confirmed 10/05/17] fluoxetine 10 mg capsule 20 mg PO DAILY cap 07/19/17 [History Confirmed 10/05/17] loperamide 2 mg capsule 2 mg PO Q1-4H PRN #20 cap 10/05/17 [Rx Confirmed 10/05/17] ondans etron HCl 4 mg tablet 4 mg PO BID-TID PRN #20 tab 10/05/17 [Rx Confirmed 10/05/17] [facility] Medical History Sinusitis, acute (Acute) [...] members: spouse housing: house 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 [place] [address] OFFICE VISIT Date of Service: 08/20/17 MR#: [id number] Acct: [id number] Name: TORIBIO BALBUENA Rep #: [id number] : 1950 Provider: Amy Kearney Age/Sex: 67/F Location: [facility] Status: Signed Assessment AND Plan 1. FREDY (obstructive sleep apnea) G47.33 Status Acute Plan S howing improvement. No change in Pap settings. No indication for titration study at this point. Keep previously scheduled follow-up with Dr. Lane in October. She has been encouraged to contact the off ce if she has any difficulties in [...] tightness. See complete review of systems. Jose jackson does report that her primary care provider ordered Mirapex for restless leg syndrome, and she uses it when I feel like I needed. She does admit that recently while reading the instru ctions on the medication as well as the medication insert that it is suggested that she take the medication daily consistently. She has not tried any nqgm-fnc-bvbaotw medications for her sleep. Compla ints report [...] 1 M FU Chief Complaint: Frequent headaches Osha Inspector Required: No DME Vendor: [employer] Accompanied by: Self Is patient in pain?: No Aller gies No Known Allergies Allergy (Verified 07/19/17 11:21) Medications Calcium Citrate/Vitamin D3 [ Calcium Citrate +Vit D3 Tab] 1 ea [...] 60 mg/mL subcutaneous syringe 60 mg SC [id number] 07/19/17 [History Confirmed 08/20/17] eletriptan 20 mg tablet 20 mg PO ONCE PRN 07/19/17 [History Confirmed 08/20/17] fluoxetine 10 mg capsule 20 mg PO DAILY cap 07/19/17 [History Confirmed 08/20/17] pramipexole 0.125 mg tablet 0.125 mg PO QHS 08/20/17 [History Confirmed 08/20/17] [facility] Medical History Sinusitis, acute (Acute) [...] household members: spouse housing: house 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 [place] [address] OFFICE VISIT Date of Service: 07/19/17 MR#: [id number] Acct: [id number] Name: TORIBIO BALBUENA Rep #: [id number] : 1950 Provider: Amy Kearney Age/Sex: 66/F Location: [facility] Status: Signed Assessment AND Plan 1. FREDY (obstructive sleep apnea) G47.33 Status Acute Plan N ew. Adjust AutoPap from 7-14 cm of water down to 5-12 cm water. Encouraged her to discuss the burning sensation she rinses with the use of her nasal pillows with the [employer], consider alternative ma sks. Follow-up in [...] was only from set up in the [facility] office. Currently, she feels that it is [...] lb Intake Visit Reasons: FREDY DME Vendor: [employer] Accompanied by: Lela saini Allergies No Known Allergies Allergy (Verified 07/19/17 11:21) Medications Calcium Citrate/Vitamin D3 [Hm Calcium Citrate +Vit D3 Tab] 1 ea PO BID 06/29/14 [History Confirmed 07/19/17] Ferrous Yaala lfate 325 mg PO QODAY 06/29/14 [History [...] 60 mg/mL subcutaneous syringe 60 mg SC [id number] 07/19/17 [History Con firmed 07/19/17] eletriptan 20 [...] 07/19/17 1258 <Electronically signed by Amy Kearney AIRCRAFT INSTRUMENT MECHANIC-C&a mp;#62; Date Amy MILLANC Cosigner Signature: Date (if applicable) CC: Shila Dinh DO 22-Jun-2017 SCREENING MAMM (CAD), BILAT Result: Comments: See Note; NOTES: [facility] Imaging Services [address] [place] [address] SCREENING MAMM (CAD), BILAT MR#: [id number] Acct: [id number] Name: TORIBIO YAO Rep #: [id number] : 1950 F 66 From: Win Vizcaino MD PCP: Shila Dinh DO Status: [facility] CLI Study: SCREENING MAMM (CAD), BILAT Date of Exam: 06/22/17 Exam# [id number] Ordering Dr: Geri Villela MAMMOGRAPHY - BILATERAL [...] delay biopsy of a clinically suspicious abnormality. [id number] Electronically Signed: Win Vizcaino MD at 8:23 EDT Tel [phone], Service support , CC: SHANE Villela; Shila Dinh DO Grinder Set Up Operator Surface: Signed 26-Feb-2017 Urgent Care Visit Report Result: Comments: See Note; NOTES: [facility] [address] [place] [address] OFFICE VISIT Date of Service: 02/26/17 MR#: [id number] Acct: [id number] Name: TORIBIO YAO p #: [id number] : 1950 Provider: Junior JOY Age/Sex: 66/F Location: [facility] Status: Signed Intake Vital Signs02/26/17 Height 5 [...] mg PO DAILY 06/29/14 [History Confirmed 02/26/17] [place]-3 Fatty Acids/Fish Oil [Fish Oil 1,000 mg [...] chills, sweats. She has trie d several nmkn-meh-kqhlifc medications with no relief. She denies nausea, [...] red flags and when appropriate [facility] ED. Patient verbalized understanding of the above. Orders Orders: Medications New: Coding Level of Care Code Off vis,new,level 3 Diagnoses Acute non- recurrent maxillary sinusitis J01.00; J01.00 R ecurrence: non-recurrent Sinusitis location: maxillary 02/26/17 1700 <Electronically signed by Junior JOY> Date Junior JOY Cosigner Signature: Date (if applicable) CC: 15-Feb-2017 Foot min 3 Views Result: Comments: See Note; NOTES: [facility] Imaging Services [address] [place] [address] Foot min 3 Views MR#: [id number] Acct: [id number] Name: TORIBIO YAO Rep #: [id number] D OB: 1950 F 66 From: Rashid Posadas DO PCP: Shila Dinh DO Status: REG CLI Study: Foot min 3 Views Date of Exam: 02/15/17 Exam# [id number] Ordering Dr: Chuckie Patel PA-C STUDY: X-RAY [...] Rashid Posadas DO at 11:23 EST Tel [phone], Service support , C C: Shila Dinh DO; Chuckie JOY Grinder Set Up Operator Surface: Signed 22-Jan-2017 Foot min 3 Views Result: Comments: See Note; NOTES: [facility] Imaging Services [address] [place] [address] Foot min 3 Views MR#: [id number] Acct: [id number] Name: TORIBIO YAO Rep #: [id number] D OB: 1950 F 66 From: Himanshu Gates MD PCP: Shila Dinh DO Status: REG CLI Study: Foot min 3 Views Date of Exam: 01/22/17 Exam# [id number] Ordering Dr: Chuckie Patel PA-C STUDY: X-RAY [...] , CC: Shila Dinh DO; Chuckie JOY Grinder Set Up Operator Surface: Signed 05-Jan-2017 Foot min 3 Views Result: Comments: See Note; NOTES: [facility] Imaging Services [address] [place] [address] Foot min 3 Views MR#: [id number] Acct: [id number] Name: TORIBIO YAO Rep #: [id number] D OB: 1950 F 66 From: Win Vizcaino MD PCP: Shila Dinh DO Status: REG CLI Study: Foot min 3 Views Date of Exam: 01/05/17 Exam# [id number] Ordering Dr: Chuckie Patel PA-C STUDY: X-RAY [...] Win Vizcaino MD at 13:06 EDT Tel [phone], Service support , CC: Shila Dinh DO; Chuckie JOY Grinder Set Up Operator Surface: Signed 27-Apr-2016 SCREENING MAMM (CAD), BILAT Result: Comments: See Note; NOTES: [facility] Imaging Services [address] [place] [address] Verdana 4d SCREENING MAMM (CAD), BILAT MR#: [id number] Acct: [id number] Name: MICHELLE YAO Rep #: [id number] : 1950 F 65 From: Win Vizcaino MD PCP: Shila Dinh DO Status: REG CLI Study: SCREENING MAMM (CAD), BILAT Date of Exam: 04/27/16 Exam# [id number] Ordering Dr: Shila England DO MAMMOGRAPHY - [...] delay biopsy of a clinically suspicious abnormality. [id number] Electronically Signed: Win Vizcaino MD a t 7:48 EST Tel [phone], Service support [phone], CC: Shila Dinh DO Grinder Set Up Operator Surface: Signed 25-Feb-2016 Dexa Bone Density Study (HP) Result: Comments: See Note; NOTES: [facility] Imaging Services [address] [place] [address] Verdana 4d Dexa Bone Density Study (HP) MR#: [id number] Acct: [id number] Name: LEXI YAO Rep #: [id number] : 1950 F 65 From: Elgin Ibanez MD PCP: Shila Dinh DO Status: REG CLI Study: Dexa Bone Density Study (HP) Date of Exam: 02/25/16 Exam# [id number] Ordering Dr: Tad Dinh DO STUDY: DUAL [...] at 8:34 EST Tel , Service support [phone], CC: Shila Dinh DO Grinder Set Up Operator Surface: Signed 08-Oct-2015 Upper Ext Joint Only(Routine) Result: Comments: See Note; NOTES: [facility] Imaging Services [address] [place] [address] Verdana 4d Upper Ext Joint Only(Routine) MR#: [id number] Acct: [id number] [facility] e: TORIBIO YAO Rep #: [id number] : 1950 F 65 From: Tre Covarrubias MD PCP: Shila Dinh DO Status: REG CLI Study: Upper Ext Joint Only(Routine) Date of Exam: 10/08/15 Exam# [id number] Ordering Dr: Nestor Diaz STUDY: MRI LEFT [...] FACR at 9:49 EDT , Service support [phone], CC: Shila Diaz Grinder Set Up Operator Surface: Signed 24-Sep-2015 Hand Min 3 Views Result: Comments: See Note; NOTES: [facility] Imaging Services [address] [place] [address] Verdamario 4d Hand Min 3 Views MR#: [id number] Acct: [id number] Name: RAINA YAO Rep #: [id number] : 1950 F 65 From: Win Vizcaino MD PCP: Shila Dinh DO Status: REG CLI Study: Hand Min 3 Views Date of Exam: 09/24/15 Exam# [id number] Ordering Dr: Nidhi Diaz STUDY: X-RAY - [...] Win Vizcaino MD at 10:44 EDT Tel [phone], Service suppo rt [phone], RAD/Hand Min 3 Views IMPRESSION: Normal x-ray examination of the hand. Electronically Signed: Win Vizcaino MD at 10:44 ED T Tel [phone], Service support [phone], CC: Shila Dinh DO; Nestor Diaz Grinder Set Up Operator Surface: Signed 29-May-2015 12 Lead Electrocardiogram Result: Comments: See Note; NOTES: [facility] Cardiovascular Services [address] [place] [address] 12 Lead EKG 05/27/15 0921 MR#: [id number] Acct: [id number] Name: TORIBIO BALBUENA Rep #: [id number] : 1950 64 From: Wilber Carpio MD Attending Dr: Radha Mcdowell MD Status: REG CLI Ordering Dr: Radha Mcdowell MD Date: 05/27/15 Location: [facility] Sex: F C Admitted: Test Reason : HYPERTENSION Blood Pressure : / mmHG Vent. Rate : 061 BPM Atrial Rate : 061 BPM P-R Int : 162 ms QRS Dur : 090 ms QT Int : 394 ms P-R-T Axes : 063 035 040 degrees QTc Int : 396 ms Normal sinus rhythm Normal ECG Confirmed by WILBER CARPIO MD ([id number]), field map editor CHRISTOPHER SALDAÑA ([id number]) on 05/29/2015 9:48:33 AM Referred By: STEPHANIE Confirmed By:WILBER CARPIO MD 05/29/15 0948 D ate Wilber Carpio MD CC: Shila Dinh DO Date Dictated: 05/27/15920 Date Transcribed: 05/27/15920 Grinder Set Up Operator Surface: Signed 20-Mar-2015 Unilat Rt Diag Digital AND CAD Result: Comments: See Note; NOTES: [facility] Imaging Services [address] [place] [address] Verdana 4d Unilat Rt Diag Digital AND CAD MR#: [id number] Acct: [id number] Na me: TORIBIO YAO Rep #: [id number] : 1950 F 64 From: Win Vizcaino MD PCP: Shila Dinh DO Status: REG CLI Study: Unilat Rt Diag Digital AND CAD Date of Exam: 03/20/15 Exam# [id number]: Geri Villela AIRCRAFT INSTRUMENT MECHANIC-C MAMMOGRAPHY - UNILATERAL DIAGNOSTIC: RIGHT BREAST REASON [...] Win Vizcaino MD at 13:09 EST Tel [phone], Datalot e support [phone], CC: Shila Dinh DO; Geri Villela Grinder Set Up Operator Surface: Signed 18-Mar-2015 Bilat Scrn Digital AND CAD Result: Comments: See Note; NOTES: [facility] Imaging Services [address] [place] [address] Verdana 4d Bilat Scrn Digital AND CAD MR#: [id number] Acct: [id number] Name: MAXIMILIANTORIBIO Rep #: [id number] : 1950 F 64 From: Win Vizcaino MD PCP: Shila Dinh DO Status: REG CLI Study: Bilat Scrn Digital AND CAD Date of Exam: 03/18/15 Exam# [id number] Or jud Dr: Geri Villela AIRCRAFT INSTRUMENT MECHANIC-C MAMMOGRAPHY - BILATERAL SCREENING REASON FOR EXAM: [...] biops y of a clinically suspicious abnormality. [id number] Electronically Signed: Win Vizcaino MD at 8:10 EST Tel [phone], Service support [phone], CC: Lizandro Dinh DO; Geri Villela Grinder Set Up Operator Surface: Signed 04-Jul-2014 History and Physical Exam Result: Comments: See Note; NOTES: [facility] Medical Records Department [address] [place] [address] History and Physical 06/29/14 0729 MR#: [id number] Acct: [id number] Name: TORIBIO YAO Rep #: [id number] : 1950 63 From: Good Finley MD [...] Sincerely, Adenike Finley MD T: NTS JOB: [id number] 07/04/14 0658 <Electronically signed by Good Finley MD> Date: Time: Good Finley MD CC: Good Finley; Shila Dinh DO Date Dictated: 06/29/14728 Date Transcribed: 06/29/14728 Grinder Set Up Operator Surface: Signed ____ I have re- examined the patient. There are no clinical change s since date of exam. ____ See Progress Notes for Changes ____ Dictated on Admission Date: Time: Signature: 04-Jul-2014 Operative Report Result: Comments: See Note; NOTES: [facility] Medical Records Department [address] [place] [address] Operative Report MR#: [id number] Acct: [id number] Name: TORIBIO YAO Shaylee p #: [id number] : 1950 63 From: Good Finley MD [...] and external pressure. Cecum was identified by kenaitze's foot appearance, appendiceal orifice, and ileocecal valve. [...] examination. Good Finley MD T: NTS JOB: [id number] 07/04/14 0658 <Electronically signed by Good Finley MD> Date Good Finley MD CC: Good Finley; Shila Dinh DO Date Dictated: 06/29/14730 Date Transcribed: 06/29/14730 Grinder Set Up Operator Surface: Signed 21-Feb-2014 Bilat Diag Digital AND CAD Result: Comments: See Note; NOTES: [facility] Imaging Services [address] [place] [address] Breast Imaging Report MR#: [id number] Acct: [id number] Name: TORIBIO YAO Rep #: [id number] : 1950 F 63 From: Win Vizcaino MD PCP: Shila Dinh DO Status: REG CLI Study: Bilat Diag Digital AND CAD Date of Exam: 02/21/14 Exam# [id number] Ordering Dr: Emmanuel Villela MAMMOGRAPHY - BILATERAL [...] Vizcaino MD 2 at 9:23 EST Tel [phone], Service support [phone], CC: Shila Dinh DO; GERI VILLELA Grinder Set Up Operator Surface: Signed 21-Feb-2014 Breast Unilateral Result: Comments: See Note; NOTES: [facility] Imaging Services [address] [place] [address] Ultrasound Report MR#: [id number] Acct: [id number] Name: TORIBIO YAO Rep #: [id number] : 1950 F 63 From: Win Vizcaino MD PCP: Shila Dinh DO Status: REG CLI Study: Breast Unilateral Date of Exam: 02/21/14 Exam# [id number] Ordering Dr: Geri Villela STUDY : ULTRASOUND [...] Win Vizcaino MD at 9:24 EST Tel [phone], Service support [phone], CC: Shila Dinh DO; GERI VILLELA Grinder Set Up Operator Surface: Signed 08-Jan-2014 Foot min 3 Views Result: Comments: See Note; NOTES: [facility] Imaging Services [address] [place] [address] Radiology Report MR#: [id number] Acct: [id number] Name: TORIBIO YAO Rep #: [id number] : 1950 F 63 From: Win Vizcaino MD PCP: Shila Dinh DO Status: REG CLI Study: Foot min 3 Views Date of Exam: 01/08/14 Exam# [id number] Ordering Dr: Ngoc Smith STUDY: X-R AY [...] Win Vizcaino MD at 16:04 EST Tel [phone], Service support [phone], CC: Hayes Dinh DO; Ngoc Smith DPM Grinder Set Up Operator Surface: Signed 14-Dec-2013 Brain W/WO Contrast Result: Comments: See Note; NOTES: [facility] Imaging Services [address] [place] [address] MRI Report MR#: [id number] Acct: [id number] Name: MAXIMILIANTORIBIO Rep #: [id number] : 1950 F 63 From: Ang Castañeda MD PCP: Shila Dinh DO Status: REG CLI Study: Brain W/WO Contrast Date of Exam: 12/14/13 Exam# [id number] Ordering Dr: Joshua Tate MD STUDY: MRI [...] Signed: Ang Castañeda MD at 19:[address] [facility] [id number], Service support [phone], CC: Shila Dinh DO; Joshua Tate MD Grinder Set Up Operator Surface: Signed 24-Aug-2013 Brain/Head W/WO Contrast Result: Comments: See Note; NOTES: [facility] Imaging Services [address] [place] [address] CAT Scan Report MR#: [id number] Acct: [id number] Name: TORIBIO YAO Rep #: [id number] : 1950 F 63 From: Daihsa Delaney MD PCP: Shila Dinh DO Status: REG CLI Study: Brain/Head W/WO Contrast Date of Exam: 08/24/13 Exam# [id number] Ordering Dr: Shila Dinh DO STUDY: CT [...] MD at 16:30 EDT , Service support [phone], CC: Shila Dinh DO Grinder Set Up Operator Surface: Signed Immunization Name Dates Details Influenza (3 years and up) on: 26-Jan-2006 Influenza (3 years and up) on: 02-Feb-2007 Comments: 0.5 cc given im lt arml lot [id number] exp 09-05-07 Tdap (7 years and up) on: 16-Jul-2008 Comments: Lot #[id number]-left deltoidDose0.5mlgiven by Juan F Fine LPN Family History Unknown Family Member Name Dates Details Father Comments: Diabetes Status: Active Mother Comments: Rheumatoid arthritis Status: Active Social History Name Dates Details Caffeine Use Comments: 3 QD Status: Active 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 [place], [place], [address] CDIFF See Note (Normal) Comments: Cdiff-MolecularNormal Reference Range = Negative C. Diff DNA Negative- No toxigenic C. Diff DNA DetectedNAAT METHOD Testing was performed using nucleic acid amplification 29-Ghh-537492:20 Stool Lactoferrin/WBC Comments: [address] [place], [address] WBCST See Note (Normal) Comments: Stool Lacto/WBCNormal Reference Range = Negative Fecal WBC Lactoferrin Negative: No Fecal WBC Lactoferrin present 3-Lqr-971102:45 ENTERIC PATHOGEN PANEL STOOL Comments: [address] [place], [address] EP PANEL See Note (Normal) Comments: [...] DetectedVIBRIO Not DetectedNorovirus Not DetectedRotavirus Not Detected 3-Ssk-578237:45 Stool Lactoferrin/WBC Comments: [address] [place], [address] WBCST See Note (Normal) Comments: Reason for Exam: Diarrhea Stool Lacto/WBCNormal Reference Range = Negative Fecal WBC Lactoferrin Negative: No Fecal WBC Lactoferrin present 82-Uxn-07962:04 CBC, Employee Comments: [address] [place], [address] Absolute Lymph 1.53 {X10_3/ul} (Normal) Range: 0.83-4.51 [...] 4.2-5.4 WBC 5.4 K/mm3 (Normal) Range: 4.4-11.0 15-Qtz-51553:04 Employee Profile Comments: [facility] [address] [place], [place], [address] LDH 175 U/L (Normal) Range: 84-246 VLDL [...] Comments: Please note revised GLUCOSE reference range mbpwtymzl93/02/2018. 18-Neh-03562:04 Nicotine Urine Drug Screen Comments: [facility] [address] [place], [place], [address] COT DRG SCREEN Negative (Normal) Comments: Cotinine [...] results are used. :04 Urinalysis, Employee Comments: [facility] [address] [place], [place], [id number] LEUK ESTERASE 25 /ul (Abnormal) OCCULT BLOOD-UR [...] Yellow (Normal) :29 CBC W/Diff, Automated Comments: [facility] [address] [place], [place], [address] Absolute Lymph 1.26 {X10_3/ul} (Normal) Range: 0.83-4.51 [...] 4.2-5.4 WBC 4.9 K/mm3 (Normal) Range: 4.4-11.0 22-Pqj-18772:29 Comprehensive Metabolic Profil Comments: [facility] [address] [place], [place], [address] GAP 6 (Normal) Range: 5-15 CO2 29.0 [...] Comments: Please note revised GLUCOSE reference range uqczptfkc02/02/2018. 78-Ipc-72097:29 Ferritin Comments: [facility] [address] [place], [address] FERRITIN 18 ng/mL (Normal) Range: 8-252 80-Fcm-42889:29 Hemoglobin A1c Comments: [place] [address] [address] [place], [address] HGB A1C 5.2 % (Normal) Range: 4.2-6.3 :29 Iron+Iron Binding Capacity Comments: [place] [address] [place], [address] IRON SATURATION 17.0 % (Normal) Range: 15.0-55.0 IRON 73 ug/dL (Normal) Range: 50-170 TIBC 429 ug/dL (Normal) Range: 250-450 21-Tlu-55240:29 Microalb:Creat Ratio,Random UR Comments: [facility] [address] [place], [address] MALB:CREAT 17.3 {mg/g_CRE} (Normal) MICROALBUMIN,UR 5.3 mg/L (Normal) UR CREAT 30.80 mg/dL (Normal) 72-Ret-16405:29 Thyroid Stim Hormone (TSH) Comments: [address] [place], [address] TSH 1.61 {uIU/mL} (Normal) Range: 0.358-3.74 36-Jfi-157547:54 Hemoglobin A1c Comments: [facility] [address] [place], [address] HGB A1C 5.6 % (Normal) Range: 4.2-6.3 71-Oct-78950:00 PAP I-G HPV Hi Risk Comments: CYTOLOGY INFORMATION:- CLINICAL INFORMATION:- DATE LMP/MENOPAUSE:- COLLECTION VIAL: Thin Prep Vial- REVENUE SETTLEMENTS ADMINISTRATOR SOURCE: CERVICAL- COLLECTION TECHNIQUE: BRUSH/SPATULASpecimen Comment: [id number] Comment: No. 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 Endocervical and/or squamous metaplasticcells (endocervical component) are present. (Normal) DIAGN Comment Comments: NEGATIVE FOR INTRAEPITHELIAL LESION AND MALIGNANCY.REACTIVE CELLULAR CHANGES AND/OR REPAIR ARE PRESENT. (Normal) 5-Gti-159886:50 Hemoglobin A1c Comments: [facility] [address] [place], [address] HGB A1C 5.5 % (Normal) Range: 4.2-6.3 09-Jun-20168:08 CBC, Employee Comments: [facility] [address] [place], [address] Absolute Lymph 1.30 {X10_3/ul} (Normal) Range: 0.83-4.51 [...] (Abnormal) Range: 4.4-11.0 09-Jun-20168:08 Employee Profile Comments: [facility] [address] [place], [place], [address] LDH 166 U/L (Normal) Range: 84-246 VLDL [...] 7-18 GLU 86 mg/dL (Normal) Range: 70-110 09-Jun-20168:08 Nicotine Urine Drug Screen Comments: [facility] [address] [place], [place], [address] COT DRG SCREEN Negative (Normal) Comments: Cotinine [...] Urinalysis, Employee Comments: How was Urine Obtained? [facility] [address] [place], [place], [address] LEUK ESTERASE 25 /ul (Abnormal) OCCULT BLOOD-UR 10 /ul (Abnormal) NITRITE UR Negative (Normal) UROBILI Normal mg/dL (Normal) PROT DIPSTX 15 mg/dL (Abnormal) pH UR 7.0 (Normal) Range: 5.0 - 8.0 SP.GR. DIPSTX 1.005 (Normal) Range: 1.002-1.030 KETONE UR Negative mg/dL (Normal) BILIRUBIN URINE Negative mg/dL (Normal) GLUCOSE, UR Normal mg/dL (Normal) CLARITY Clear (Normal) COLOR Yellow (Normal) :06 CBC W/Diff, Automated Comments: [facility] [address] [place], [place], [address] Absolute Lymph 1.42 {X10_3/ul} (Normal) Range: 0.83-4.51 [...] Range: 4.4-11.0 09-Jun-20168:06 Comprehensive Metabolic Profil Comments: [facility] [address], [place], [address] GAP 1 (Abnormal) Range: 5-15 CO2 28.0 [...] (Normal) Range: 70-110 :06 Hemoglobin A1c Comments: [facility] [address] [place], [address] HGB A1C 5.7 % (Normal) Range: 4.2-6.3 :06 Microalb:Creat Ratio,Random UR Comments: [address] [place], [address] MALB:CREAT 4.8 {mg/g_CRE} (Normal) MICROALBUMIN,UR 6.4 mg/L (Normal) UR CREAT 132.00 mg/dL (Normal) 09-Jun-20168:06 Thyroid Stim Hormone (TSH) Comments: [facility] [address] [place], [address] TSH 1.17 {uIU/mL} (Normal) Range: 0.358-3.74 :06 Urinalysis, Complete Comments: How was Urine Obtained? CLEAN [facility] [address] [place], [address] MUCUS, URINE RARE {/hpf} (Normal) [...] CLARITY Clear (Normal) COLOR Yellow (Normal) 09-Jun-20168:06 Vitamin D,25 Hydroxy Comments: [address] [place], [address] Vitamin D 25-OH 35.4 ng/mL (Normal) Comments: Vitamin D 25(OH) Status Range Deficiency <20 ng/mL (50nmol/L) Insuffciency 20 - 30 ng/mL (50 - 75 nmol/L) Sufficiency 30 - 100 ng/mL (75 - 250 nmol/L) Toxicity >100 ng/mL (>250 nmol/L) 4-Zcg-192163:23 Hemoglobin A1c Comments: [address] [place], [place], [address] HGB A1C 5.7 % (Normal) Range: 4.2-6.3 :11 CBC, Employee Comments: [address] [place], [address] RDW SD 40.2 fL (Normal) Range: 35.1-43.9 RDW CV 13.3 % (Normal) Range: 11.6-14.6 :11 CBC, Employee Comments: [address] [place] [place], [address] Absolute Lymph 1.62 {X10_3/ul} (Normal) [...] 4.2-5.4 WBC 6.3 K/mm3 (Normal) Range: 4.4-11.0 09-Oct-20159:11 Employee Profile Comments: [facility] [address] [place], [place], [address] LDH 181 U/L (Normal) Range: 84-246 VLDL [...] 70-110 09-Oct-20159:11 Nicotine Urine Drug Screen Comments: [facility] [address] [place], [place], [address] COT DRG SCREEN Negative (Normal) Comments: Cotinine [...] Employee Comments: How was Urine Obtained? CLEAN [facility] [address] [place], [place], [address] LEUK ESTERASE 25 /ul (Abnormal) OCCULT BLOOD-UR 10 /ul (Abnormal) NITRITE UR Negative (Normal) UROBILI Normal mg/dL (Normal) PROT DIPSTX 15 mg/dL (Abnormal) pH UR 7.0 (Normal) Range: 5.0 - 8.0 SP.GR. DIPSTX 1.010 (Normal) Range: 1.002-1.030 KETONE UR Negative mg/dL (Normal) BILIRUBIN URINE Negative mg/dL (Normal) GLUCOSE, UR Normal mg/dL (Normal) CLARITY Clear (Normal) COLOR Yellow (Normal) 07-Trr-944732:54 CBC W/Diff, Auto - EPLAB Comments: [facility] [id number], [place] [address]SWK DIRECTOR REID MUHAMMAD D.O.[phone] Hospitals [facility]age [facility] Center [address] [place], [place], [address] Only SMEAR COMMENT SCANNED (Normal) Comments: 1+ [...] 4.4-11.0 :53 Basic Metabolic Profile (BMP) Comments: [facility] [address] [place], [address] GAP 8 (Normal) Range: 5-15 [...] HOMEOSTASIS per A.D.A. criteria. :53 CRP Comments: [facility] [address] [place], [place], [address] C-REACTIVE PROT 6.43 mg/L (Abnormal) Range: 0.0-3.0 Comments: C-Reactive Protein (CRP) provides useful information for thediagnosis, therapy and monitoring of inflammatory processesand associated diseases. For the evaluation of Relative Riskfor Cardiovascular Dise ase, a High Sensitivity CRP (HSCRP)should be ordered. :53 Erythrocyte Sed Rate Comments: [facility] [address] [place], [place], [address] SED RATE 29 mm/h (Normal) Range: 0-30 [...] positivity are those recommended byCDC/ASTPHLD. p23=Osp C, t20=fhxgkphvaGohf:Sera from individuals with the following may cross [...] Equivocal 0.91 - 1.09 Positive >1.09Performed at: [address] [id number] Director: Ollie Shook MD, Phone: [phone] at: [place] [id number] [place], [place] [id number] Director: Mal Ann PhD, Phone: [phone] 7-Tzp-022768:35 CDIFF (Molecular) Comments: [address] [place], [address] CDIFF See Note (Normal) Comments: Cdiff-MolecularC. Diff DNA Negative- No toxigenic C. Diff DNA Detected :35 Ova and Parasites 8623 Comments: [address] [place], [address] OP See Note Comments: O + P 8623OVA AND PARASITES EXAM, ROUTINE These results were obtained using wet preparation(s) and trichrome stained smear. This test does not include testing for Crytosporidium parvum, C (Normal) yclospora, or Microsporidia. TESTING PERFORMED AT [facility]. ORIGINAL REPORT ON FILE IN LAB CONTAINS ADDITIONAL TEST SITE INFORMATION. ____ :35 Stool Lactoferrin/WBC Comments: [address] [place], [address] WBCST See Note (Normal) Comments: Stool Lacto/WBCFecal WBC Lactoferrin Positive: Fecal WBC Lactoferrin present :35 Stool Occult Blood iFOB Comments: [address] [place], [place], [address] STOB See Note (Normal) Comments: STOB iFOBOccult Blood Positive ORGANISM 1: OCCULT BLOOD POSITIVE :52 CBC W/Diff, Automated Comments: [facility] [address] [place], [place], [address] Absolute Lymph 0.81 {X10_3/ul} (Abnormal) Range: 0.83-4.51 [...] Range: 4.4-11.0 :52 Comprehensive Metabolic Profil Comments: [facility] [address] [place], [place], [address] GAP 9 (Normal) Range: 5-15 CO2 25.0 [...] Range: 70-110 :52 Erythrocyte Sed Rate Comments: [address] [place], [place], [address] SED RATE 12 mm/h (Normal) Range: 0-30 :52 Thyroid Stim Hormone (TSH) Comments: [address] [place], [place], [address] TSH 0.73 {uIU/mL} (Normal) Range: 0.358-3.74 :02 Hemoglobin A1c Comments: [address] [place], [address] HGB A1C 5.4 % (Normal) Range: 4.2-6.3 :58 CBC W/Diff, Auto - EPLAB Comments: At [facility] Oncologypatients receive CBC w/auto Differential ONLY. Physicianwill place an order for a manual differential or Pathologistreview at his discretion. [facility] OUTPATIENT [facility]. [address] [place] [address] MOTH PROOFER: REID MUHAMMAD DO PH:[phone] Hospitals Portage Medical Center [address] [place], [address] Absolute Lymph 1.27 {X10_3/uL} (Normal) Range: 0.83-4.51 [...] Range: 4.4-11.0 :58 Comprehensive Metabolic Profil Comments: [facility] [address] [place], [address] GAP 2 (Abnormal) Range: 5-15 [...] 7-18 GLU 85 mg/dL (Normal) Range: 70-110 32-Vyi-27147:58 Lipid Profile Comments: [facility] [address] [place], [address] VLDL 7 mg/dL (Normal) Range: 5-40 LDL [...] 200-240 mg/dL Borderline >240 mg/dL High Risk 66-Npl-44072:58 Thyroid Stim Hormone (TSH) Comments: [facility] [address] [place], [address] TSH 0.98 {uIU/mL} (Normal) Range: 0.358-3.74 :58 Urinalysis, Complete Comments: How was Urine Obtained? [facility], [facility] [address]dlcjmcce14[address] [place], [address] MUCUS, URINE 0 SEEN {/hpf} (Normal) [...] (Normal) CLARITY Clear (Normal) COLOR Yellow (Normal) 83-Wco-285501:30 Hemoglobin A1c Comments: [facility] [address] [place], [address] HGB A1C 5.3 % (Normal) Range: 4.2-6.3 :52 Hemoglobin A1c Comments: Test performed at:[facility] [address] [place] [address] HGB A1C 5.6 % (Normal) Range: 4.2-6.3 Comments: ADDENDA: Review at [facility] visit :42 CBC, Employee Comments: Test performed at:[facility] [address] [place] [address] Absolute Lymph 1.31 {X10_3/ul} (Normal) Range: [...] 4.4-11.0 :42 Employee Profile Comments: Test performed at:[facility] [address] [place] [address] LDH 193 U/L (Normal) Range: [...] 70-110 :42 Hemoglobin A1c Comments: Test performed at:[facility] [address] [place] [address] HGB A1C 5.5 % (Normal) Range: 4.2-6.3 :42 Urinalysis, Employee Comments: Test performed at:[facility] [address] [place] [address] LEUK ESTERASE 25 /ul (Abnormal) OCCULT BLOOD-UR 10 /ul (Abnormal) NITRITE UR Negative (Normal) UROBILI Normal mg/dL (Normal) PROT DIPSTX Negative mg/dL (Normal) pH UR 8.0 (Normal) Range: 5.0 - 8.0 SP.GR. DIPSTX 1.010 (Normal) Range: 1.002-1.030 KETONE UR Negative mg/dL (Normal) BILIRUBIN URINE Negative mg/dL (Normal) GLUCOSE, UR Normal mg/dL (Normal) CLARITY Clear (Normal) COLOR Yellow (Normal) 91-Ooh-566951:05 SALUD CULTURE-OTHER (74017) Comments: PATIENT NOT FASTINGPERFORMED BY: [facility] Dddxzm7177 [facility] [id number] Information: SRC:DIONE [id number] Result 1 RRF (Normal) Comments: Routine respiratory pantera Upper Respiratory Culture Final report (Normal) 87-Gvq-992274:48 Rapid Strep Test, Office (08584) Rapid Strep Test, Office Negative (Normal) 54-Ebl-81597:06 CBC W/Diff, Automated Comments: Test performed at:[facility] [address] [place] [address] Absolute Lymph 1.35 {X10_3/ul} (Normal) [...] 4.2-5.4 WBC 4.8 K/mm3 (Normal) Range: 4.4-11.0 85-Svt-16394:06 Comprehensive Metabolic Profil Comments: Test performed at:[facility] [address] [place] [address] GAP 3 (Abnormal) Range: 5-15 CO2 30.0 [...] 7-18 GLU 91 mg/dL (Normal) Range: 70-110 45-Mja-31045:06 Hemoglobin A1c Comments: Test performed at:[facility] Qkzh[address]ktah2342 [facility] [place] [address] HGB A1C 5.6 % (Normal) Range: 4.2-6.3 99-Ajo-04650:06 Lipid Profile Comments: Test performed at:[facility] [address] [place] [address] VLDL 13 mg/dL (Normal) Range: 5-40 LDL [...] 200-240 mg/dL Borderline >240 mg/dL High Risk 03-Jhk-99425:06 Microalb:Creat Ratio,Random UR Comments: Test performed at:[facility] [address] [place] [address] MALB:CREAT 6.6 {mg/g_CRE} (Normal) MICROALBUMIN,UR 13.2 mg/L (Normal) UR CREAT 197.2 mg/dL (Normal) :06 Thyroid Stim Hormone (TSH) Comments: Test performed at:[facility] [address] [place] [address] TSH 0.97 {uIU/mL} (Normal) Range: 0.358-3.74 :06 Urinalysis, Complete Comments: How was Urine Obtained? CLEAN CATCHTest performed at:[facility] [address] [place] [address] MUCUS, URINE 0 SEEN {/hpf} (Normal) [...] :55 BRENDAN Negative (Normal) Comments: Performed at: [facility] [address] [id number] Director: Natanael Archer MD, Phone: [phone] :55 CBCEM Comments: This patient requested that [facility] Laboratoy send to you acopy of [...] positive 40 - 59Strong positive >59Performed at: [facility] [address] [id number] Director: Ollie Shook MD, Phone: [phone] :55 CRP < 2.90 mg/L (Normal) Range: 0.0-3.0 Comments: C-Reactive Protein (CRP) provides useful information for thediagnosis, therapy and monitoring of inflammatory processesand associated diseases. For the evaluation of Relative Riskfor Cardiovascular Dise ase, a High Sensitivity CRP (HSCRP)should be ordered. :55 EMP Comments: This patient requested that [facility] Laborat[facility] send to you acopy of [...] CHOL 176 mg/dL (Normal) Comments: <200 mg/dL Idgesawme534-709 mg/dL Borderline>240 mg/dL High Risk BID 0.11 [...] :55 UAEM Comments: This patient requested that [facility] Labor[facility] send to you acopy of [...] Range: 0.6-1.0 :27 Blood Glucose , Office (50144) Blood Glucose , Office 84 (Normal) Comments: not fasting :27 HgA1C , Office (73722) HgA1C , Office 5.5 % (Normal) Range: [...] CHOL 172 mg/dL (Normal) Comments: <200 mg/dL Kvxrwhoio255-983 mg/dL Borderline>240 mg/dL High Risk HDL 65 [...] (Normal) Range: 0.358-3.74 :12 HgA1C , Office (89980) HgA1C , Office 5.5 % (Normal) Range: 4.6 - 7.1 :12 Blood Glucose , Office (58482) Blood Glucose , Office 100 (Normal) :28 [...] states, despite thesacrifice of some sensitivity.Performed at: [facility] [address] [id number] Director: Ollie Shook MD, Phone: [phone] :[phone] RETIC 1.09 % (Normal) Range: 0.5-1.5 :17 TIBC 474 ug/dL (Abnormal) Range: 250-450 :56 HgA1C , Office (22723) HgA1C , Office 5.1 % (Normal) Range: 4.6 - 7.1 :56 Blood Glucose , Office (28937) Blood Glucose , Office 105 (Normal) :15 [...] CHOL 172 mg/dL (Normal) Comments: <200 mg/dL Pluelerph458-499 mg/dL Borderline>240 mg/dL High Risk :24 MIACRE tMICROCREAT 8.4 {mg/g_CRE} (Normal) MIALB 13.0 mg/L (Normal) CREU 153.6 mg/dL (Normal) :24 TSH 1.37 {uIU/mL} (Normal) Range: 0.358-3.74 :24 UAC UBAC RARE {/hpf} (Normal) UMUC 1+ {/hpf} [...] UCOL Yellow (Normal) :00 HgA1C , Office (83239) HgA1C , Office 5.3 % (Normal) Range: 4.6 - 7.1 :00 Blood Glucose , Office (08565) Blood Glucose , Office 100 (Normal) 68-Fzi-06764:53 GALLBLADDER Radiology Report See Note (Normal) Comments: [...] size of the right kidney. The right owaovcbfnqcati44.9 cm. Normal renal cortex. The right cortex measures 2.1 cm. Thereisno demonstrated renal mas s or cyst. There is no right hydronephrosis. IMPRESSION:Multiple gallstones. Signed:Win Vizcaino M.D.February 02, 2012 at 10:15:03 AM [id number] Signed GP/GP If you are the [facility] physician and would like to consult with theradiologist who provided this interpretation, please contact Justyn Razo at [phone]. If this radiologist is unavailable, youwill be d irected to another radiologist to assist. If you are a patient with a question regarding this report, pleasecontactyour referring physician directly. Professional Interpretation Provided By: [employer] , Phone , These documents contain legally [...] 1019 by ITS IMPORTSign by Charis VILLELA,Jamie iele on 02/02/12 1020 Sign by: Win Vizcaino [...] SED tSEDRATE 9 mm/h (Normal) Range: 0-30 85-Vgc-043122:33 URINE SALUD CULTURE (FIDEL Comments: PATIENT NOT FASTINGPERFORMED BY: [facility] Eisawp5914 [facility] [id number] Information: SRC:CHON [id number] COL COUNT) (63259) Antimicrobial MIHEAD (Normal) Comments: S = Susceptible; [...] Final report Culture,Comprehensive (Normal) :08 Urinalysis, Office (85760) UA - BILIRUBIN Negative (Normal) UA - BLOOD Hemolyzed Trace (Normal) UA - GLUCOSE Negative (Normal) UA - KETONES Negative mg/dL (Normal) UA - LEUKOCYTE ESTERASE Trace (Normal) UA - NITRITE Negative (Normal) UA - PH 7.5 (Normal) UA - PROTEIN Negative mg/dL (Normal) UA - SPECIFIC GRAVITY 1.010 (Normal) URINE UROBILINGN FIDEL TIMED Normal mg/dL (Normal) :51 HgA1C , Office (02382) HgA1C , Office 5.6 % (Normal) Range: 4.6 - 7.1 :51 Blood Glucose , Office (14984) Blood Glucose , Office 85 (Normal) :53 [...] Vizcaino M.D.September 17, 2011 at 4:15:11 PM [id number] Signed GP/GP If you are the referring physician and would like to cons ult with theradiologist who provided this interpretation, please contact Justyn Razo at [phone]. If this radiologist is unavailable, youwill be directed to another radiologist to assist . If you are a patient with a question regarding this report, pleasecontactyour referring physician directly. Professional Interpretation Provided By: [employer], Phone , Dictated on 09/17/11 1549 by Charis VILLELA,GabrieleTranscribed on 09/17/11 1621 by ITS IMPORTSign by Charis VILLELA,Win on 09/17/11 1622 Sign by: __ Charis VILLELA,Win 30-Jul-2011 BID 0.11 mg/dL Range: 0.00-0.30 7:44 (Normal) :44 CBCMD RBCM NORM C+C {NORMAL} (Normal) PE [...] TSH 1.03 {uIU/mL} (Normal) Range: 0.358-3.74 :44 [facility] UMUC 0 SEEN {/hpf} (Normal) UBAC 0 [...] UCOL STRAW (Normal) :18 HgA1C , Office (23833) HgA1C , Office 5.6 % (Normal) Range: 4.6 - 7.1 :18 Blood Glucose , Office (01391) Blood Glucose , Office 108 (Normal) :12 Microscopic Examination Comments: PATIENT WAS FASTINGPERFORMED BY: [email or web address] LLCCoPolybioticsJlwbhd0083 [facility] [id number] Bacteria Few (Normal) Mucus Threads Present (Normal) Epithelial Cells (non renal) 0-10 {/hpf} (Normal) Range: 0 - 10 RBC 0-3 {/hpf} (Normal) Range: 0 - 3 WBC 0-5 {/hpf} (Normal) Range: 0 - 5 :12 Vitamin D Hydroxy (70121) Comments: PATIENT WAS FASTINGPERFORMED BY: [employer] LabCoPolybioticsTyvpkh9049 [facility]StakeFirst[facility] [id number] Vitamin D, 25-Hydroxy 64.8 ng/mL (Normal) Range: 32.0-100.0 Comments: Recent studies consider the lower limit of 32.0 ng/mL to be athreshold for optimal health.Lion AGGARWAL. J Nutr. 2004;135(2):317-22. :12 LIPID PANEL (06166) Comments: PATIENT WAS FASTINGPERFORMED BY: RIGID Hmpbez2922 [facility] [id number] LDL/HDL Ratio 1.5 {ratio_units} (Normal) Range: 0.0-3.2 LDL Cholesterol Calc 97 mg/dL (Normal) Range: 0-99 VLDL Cholesterol Padmini 10 mg/dL (Normal) Range: 5-40 HDL Cholesterol 66 mg/dL (Normal) Comments: According to ATP-III Guidelines, HDL-C >59 mg/dL is considered anegative risk factor for CHD. Triglycerides 51 mg/dL (Normal) Range: 0-149 Cholesterol, Total 173 mg/dL (Normal) Range: 100-199 :12 TSH ([id number]) Comments: PATIENT WAS FASTINGPERFORMED BY: RIGID Ounqzl0842 [facility] [id number] TSH 1.160 {uIU/mL} (Normal) Range: 0.450-4.500 :12 URINALYSIS, W/ MICRO ([id number]) Comments: PATIENT WAS FASTINGPERFORMED BY: RIGID Gdsfuv5711 [facility] [id number] Microscopic Examination See below: (Normal) Microscopic Examination MICRON (Normal) Comments: Microscopic follows if indicated. Nitrite, Urine Negative (Normal) Urobilinogen,Semi-Qn 0.2 mg/dL (Normal) Range: 0.0-1.9 Bilirubin Negative (Normal) Occult Blood Negative (Normal) Ketones Negative (Normal) Glucose Negative (Normal) Protein Negative (Normal) WBC Esterase Negative (Normal) Appearance Clear (Normal) Urine-Color Yellow (Normal) pH 7.0 (Normal) Range: 5.0-7.5 Specific [place] 1.016 (Normal) Range: 1.005-1.030 :12 MICROALBUMIN: CREATININE RATIO Comments: PATIENT WAS FASTINGPERFORMED BY: RIGIDTrinitas HospitalXlgbmk6954 [facility] [id number] ([id number]) AND ([id number]) Microalb/Creat Ratio <.8 {mg/g_creat} (Normal) Range: 0.0-30.0 Microalbumin, Urine <1.0 ug/mL (Normal) Range: 0.0-17.0 Comments: Verified by repeat analysis Creatinine, Urine 118.8 mg/dL (Normal) Range: 15.0-278.0 48-Vre-75840:12 METABOLIC PANEL, COMPREHENSIVE Comments: PATIENT WAS FASTINGPERFORMED BY: [facility]6370 [facility] [id number] ([id number]) ALT (SGPT) 21 [iU]/L (Normal) Range: 0-40 [...] Glucose, Serum 89 mg/dL (Normal) Range: 65-99 01-Bfn-56767:12 CBC WITH MANUAL DIFF Comments: PATIENT WAS FASTINGPERFORMED BY: LabCoGuadalupe County HospitalGfachd0532 Heike ArmstrongFirstHealth [facility] [id number] Information: [id number] ([id number]) Immature Grans (Abs) 0.0 {x10E3/uL} (Normal) Range: [...] (Normal) Range: 4.0-10.5 :13 HgA1C , Office (82865) HgA1C , Office 5.6 % (Normal) Range: 4.6 - 7.1 :13 Blood Glucose , Office (78347) Blood Glucose , Office 87 (Normal) 99-Zwg-391609:10 CALCIFIDIOL (23784) VIT D Comments: PATIENT NOT FASTINGPERFORMED BY: LabCoGuadalupe County HospitalHienno3067 [facility] [id number] Information: [id number] Vitamin D, 25-Hydroxy 52.8 ng/mL (Normal) Range: 32.0-100.0 Comments: Recent studies consider the lower limit of 32.0 ng/mL to be athreshold for optimal health.Lion AGGARWAL. J Nutr. 2004;135(2):317-22. 39-Fbn-949923:19 HgA1C , Office (69994) HgA1C , Office 5.4 % (Normal) Range: 4.6 - 7.1 36-Ylc-635461:19 Blood Glucose , Office (17218) Blood Glucose , Office 100 (Normal) :09 MICROALBUMIN: CREATININE RATIO Comments: PATIENT WAS FASTINGPERFORMED BY: [facility]Select [facility]6370 [facility] [id number] ([id number]) AND ([id number]) Microalb/Creat Ratio 2.6 {mg/g_creat} (Normal) Range: 0.0-30.0 Microalbumin, Urine 2.9 ug/mL (Normal) Range: 0.0-17.0 Creatinine, Urine 109.5 mg/dL (Normal) Range: 15.0-278.0 :09 CBC WITH MANUAL DIFF Comments: PATIENT WAS FASTINGPERFORMED BY: [facility]Select [facility]6370 [facility] [id number] Information: [id number] ([id number]) Immature Grans (Abs) 0.0 {x10E3/uL} (Normal) Range: [...] 3.80-5.10 WBC 4.8 {x10E3/uL} (Normal) Range: 4.0-10.5 41-Ugq-83081:09 METABOLIC PANEL, COMPREHENSIVE Comments: PATIENT WAS FASTINGPERFORMED BY: LabCoTrinitas HospitalRmfbvv8049 [facility] [id number] ([id number]) ALT (SGPT) 22 [iU]/L (Normal) Range: 0-40 [...] 25 18 - 39 years 8 - 8 - 20 40 - 59 years 9 - 9 - 60 years and older 10 11 - 26 eGFR AfricanAmerican >59 mL/min/1.73 [...] Glucose, Serum 81 mg/dL (Normal) Range: 65-99 74-Yge-35965:09 TSH ([id number]) Comments: PATIENT WAS FASTINGPERFORMED BY: LabCo Pgjver9206 [facility] [id number] TSH 1.660 {uIU/mL} (Normal) Range: 0.450-4.500 :09 LIPID PANEL (12361) Comments: PATIENT WAS FASTINGPERFORMED BY: RIGIDTrinitas HospitalYnqtox6174 [facility] [id number] LDL Cholesterol Calc 100 mg/dL (Abnormal) Range: 0-99 LDL/HDL Ratio 1.3 {ratio_units} (Normal) Range: 0.0-3.2 HDL Cholesterol 75 mg/dL (Normal) Comments: According to ATP-III Guidelines, HDL-C >59 mg/dL is considered anegative risk factor for CHD. VLDL Cholesterol Padmini 10 mg/dL (Normal) Range: 5-40 Triglycerides 51 mg/dL (Normal) Range: 0-149 Cholesterol, Total 185 mg/dL (Normal) Range: 100-199 :33 Blood Glucose , Office (27886) Blood Glucose , Office 135 (Normal) :33 HgA1C , Office (64426) HgA1C , Office 5.4 % (Normal) Range: 4.6 - 7.1 03-Vyu-984316:50 CALCIFIDIOL (10950) VIT D 25 Comments: PATIENT NOT FASTINGClinical Information: [id number] PERFORMED BY: RIGIDTrinitas HospitalQdwtav7049 [facility] [id number] Vitamin D, 25-Hydroxy 45.3 ng/mL (Normal) Range: 32.0-100.0 Comments: Recent studies consider the lower limit of 32.0 ng/mL to be athreshold for optimal health.Lion AGGARWAL. J Nutr. 2004;135(2):317-22. :44 HgA1C , Office (69349) Comments: done km HgA1C , Office 5.6 % (Normal) Range: 4.6 - 7.1 :44 Blood Glucose , Office (71740) Comments: done km Blood Glucose , Office 114 (Normal) :01 MYOCARD PERF SPECT REST/STRESS Radiology Report See Note (Normal) Comments: Exam Number: [id number] MYOCARDIAL PERFUSION SCAN 11.5 mCi of Tc99m Sestamibi was injected at rest. The patient thenexercised according to the regular Donald protocol for 9 minutes and 25seco nds attainin g 87% of the maximum predicted heart rate for amaximum work load of 10.7 METs. At peak exercise, 33.7 mCi of Es54yMtledgueu was injected. Stress images were then obtained. [...] WILBER CARPIO M.D. :47 HgA1C , Office (18057) Comments: done HgA1C , Office 5.4 % (Normal) Range: 4.6 - 7.1 :47 Blood Glucose , Office (35553) Comments: done Blood Glucose , Office 106 [...] (Normal) Range: 5-40 :57 HgA1C , Office (38938) Comments: done HgA1C , Office 5.4 % (Normal) Range: 4.6 - 7.1 :57 Blood Glucose , Office (04834) Comments: done Blood Glucose , Office 93 (Normal) :47 HgA1C , Office (83751) Comments: DONE HgA1C , Office 5.6 % (Normal) Range: 4.6 - 7.1 :47 Blood Glucose , Office (04189) Comments: DONE KM Blood Glucose , Office 126 (Normal) :58 [...] (Normal) Range: 0.34-4.82 :31 HgA1C , Office (05323) HgA1C , Office 5.5 % (Normal) Range: 4.6 - 7.1 :31 Blood Glucose , Office (17679) Blood Glucose , Office 123 (Normal) :19 HgA1C , Office (91943) Comments: done km HgA1C , Office 5.2 % (Normal) Range: 4.6 - 7.1 :19 Blood Glucose , Office (54954) Comments: done km Blood Glucose , Office [...] Range: 5-40 :56 Blood Glucose , Office (47760) Blood Glucose , Office 82 (Normal) :46 [...] Range: 5-40 :27 Blood Glucose , Office (90839) Blood Glucose , Office 68 (Normal) :27 HgA1C , Office (43245) HgA1C , Office 5.1 % (Normal) Range: [...] in 6 months- do ekg at next vii Indication: Abnormal glucose tolerance test Abnormal glucose [...] Planned Observations OVA & PARASITE DIR SMEAR (83471)Indication: Diarrhea, unspecified type On: 1-Azw-941585:00 Request OCCULT BLOOD FECES SCREEN (28831)Indication: Diarrhea, unspecified type On: 3-Jtv-896380:00 Request LEUKOCYTE COUNT, FECAL (51370)Indication: Diarrhea, unspecified type On: 0-Tye-492438:00 Request Clostridium difficile Toxin A+B, EIA (12774)Indication: Diarrhea, unspecified type On: : Request SALUD CULTURE-STOOL (46489)Indication: Diarrhea, unspecified type On: :00 Request LIPID PANEL (06618)Indication: Hypercholesterolemia On: 59-Dki-343084:58 Request LEUKOCYTE COUNT, FECAL (91722)Indication: Diarrhea in adult patient On: :02 Request C-DIFFICILE, STOOL (25811)Indication: Diarrhea in adult patient On: :02 Request HGB A1C (36808)Indication: Abnormal glucose tolerance test On: :54 Request Comments: standing order every 4months for one year IRON BINDING CAPACITY (TIBC) (69485)Indication: Iron deficiency anemia, unspecified On: 54 Request IRON (38533)Indication: Iron deficiency anemia, unspecified On: :53 Request FERRITIN (04807)Indication: Iron deficiency anemia, unspecified On: :53 Request TSH (THYROID STIMULATING HORMONE) (03333)Indication: Abnormal glucose tolerance test On: 53 Request MICROALBUMIN: CREATININE RATIO (18465) AND (03050)Indication: Abnormal glucose tolerance test On: :53 Request METABOLIC PANEL, COMPREHENSIVE (92545)Indication: Abnormal glucose tolerance test On: 53 Request LIPID PANEL (15344)Indication: Hypercholesterolemia On: :53 Request CBC with auto diff (52467)Indication: Abnormal glucose tolerance test On: :53 Request HGB A1C (63595)Indication: Abnormal glucose tolerance test On: 63-Vww-545830:08 Request HGB A1C (76758)Indication: Abnormal glucose tolerance test On: 08-Feb-2017 Request HGB A1C (76232)Indication: Abnormal glucose tolerance test On: 14-Nov-2016 Request HGB A1C (67571)Indication: Abnormal glucose tolerance test On: 11-Oct-2016 Request HGB A1C (78456)Indication: Abnormal glucose tolerance test On: 74-Xcw-516711:37 Request HGB A1C (67838)Indication: Abnormal glucose tolerance test On: 13-Jun-2016 Request HGB A1C (40656)Indication: Abnormal glucose tolerance test On: 14-Feb-20169:02 Request CALCIFIDIOL (08613) VIT D 25Indication: Abnormal glucose tolerance test On: :02 Request TSH ([id number])Indication: Abnormal glucose tolerance test On: :02 Request URINALYSIS, W/ MICRO (20531)Indication: Abnormal glucose tolerance test On: :02 Request MICROALBUMIN: CREATININE RATIO (15766) AND (67897)Indication: Abnormal glucose tolerance test On: :02 Request METABOLIC PANEL, COMPREHENSIVE (35110)Indication: Abnormal glucose tolerance test On: :02 Request CBC W/AUTO DIFF WBC (53836)Indication: Abnormal glucose tolerance test On: :01 Request Hemoglobin Glyclated (HGB A1C) (17580)Indication: Abnormal glucose tolerance test On: 12-Nov-2015 Request Lyme Disease Antibody W/ Reflex (30908)Indication: Arthralgia of right hand On: 67-Mrb-664083:39 Request Metabolic Panel, Basic (47159)Indication: Arthralgia of right hand On: 03-Eai-592507:34 Request CBC, Platelets & Auto Diff (70776)Indication: Arthralgia of right hand On: :34 Request C-Reactive Protein (67055)Indication: Arthralgia of right hand On: 06-Pzu-605899:33 Request SED RATE ERYTHROCYTE (54262)Indication: Arthralgia of right hand On: 09-Uap-473577:33 Request OVA & PARASITE DIR SMEAR (63824)Indication: Diarrhea in adult patient On: :15 Request OCCULT BLOOD FECES SCREEN (28530)Indication: Diarrhea in adult patient On: 9-Kjd-379182:15 Request LEUKOCYTE COUNT, FECAL (35421)Indication: Diarrhea in adult patient On: 3-Njj-837302:15 Request C-DIFFICILE, STOOL (87726)Indication: Diarrhea in adult patient On: 7-Umq-631843:15 Request SALUD CULTURE-STOOL (49912)Indication: Diarrhea in adult patient On: :15 Request Sed Rate Erythrocyte (63878)Indication: Abdominal pain On: :14 Request TSH (03822)Indication: Diarrhea in adult patient On: :13 Request METABOLIC PANEL, COMPREHENSIVE (37737)Indication: Diarrhea in adult patient On: : Request CBC W/AUTO DIFF WBC (77354)Indication: Diarrhea in adult patient On: : Request Rapid Flu (88955 x 2)Indication: Flu-like symptoms On: : Request Hemoglobin Glyclated (HGB A1C) (03557)Indication: Abnormal glucose tolerance test On: 15-Jul-2015 Request TSH ([id number])Indication: Hypertension On: :03 Request URINALYSIS, W/ MICRO (18242)Indication: Hypertension On: : Request METABOLIC PANEL, COMPREHENSIVE (97260)Indication: Hypertension On: 17-Agh-03821:03 Request LIPID PANEL (47302)Indication: Hypertension On: 01-Imi-25337:03 Request CBC with auto diff (90930)Indication: Hypertension On: 53-Lnb-14707:03 Request Hemoglobin Glyclated (HGB A1C) (34216)Indication: Abnormal glucose tolerance test On: 17-Mar-2015 Request Hemoglobin Glyclated (HGB A1C) (07545)Indication: Abnormal glucose tolerance test On: 17-Nov-2014 Request Hemoglobin Glyclated (HGB A1C) (71704)Indication: Abnormal glucose tolerance test On: 20-Jul-2014 Request Hemoglobin Glyclated (HGB A1C) (12016)Indication: Abnormal glucose tolerance test On: :24 Request TSH (20470)Indication: Abnormal glucose tolerance test On: : Request URINALYSIS, W/ MICRO (93129)Indication: Abnormal glucose tolerance test On: : Request MICROALBUMIN: CREATININE RATIO (78655) AND (21393)Indication: Abnormal glucose tolerance test On: : Request METABOLIC PANEL, COMPREHENSIVE (96696)Indication: Abnormal glucose tolerance test On: : Request LIPID PANEL (30515)Indication: Abnormal glucose tolerance test On: : Request CBC W/AUTO DIFF WBC (15466)Indication: Abnormal glucose tolerance test On: :21 Request LIPID PANEL (66377)Indication: Hyperlipidemia On: : Request HEPATIC FUNCTION PANEL (46150)Indication: Hyperlipidemia On: :45 Request LIPID PANEL (82225)Indication: Hyperlipidemia On: :45 Request CCP ANTIBODY (82733)Indication: Pain in unspecified joint On: :18 Request SED RATE ERYTHROCYTE (15155)Indication: Pain in unspecified joint On: :18 Request C-REACTIVE PROTEIN (88710)Indication: Pain in unspecified joint On: :18 Request RHEUMATOID FACTOR-QUANT (73322)Indication: Pain in unspecified joint On: :18 Request BRENDAN (ANTINUCLEAR ANTIBODY) (48264)Indication: Pain in unspecified joint On: :18 Request IRON BINDING CAPACITY (TIBC) (89256)Indication: Iron deficiency anemia, unspecified On: 06-Jun-20138:12 Request IRON (96892)Indication: Iron deficiency anemia, unspecified On: 06-Jun-20138:12 Request FERRITIN (59911)Indication: Iron deficiency anemia, unspecified On: 06-Jun-20138:12 Request CBC WITH MANUAL DIFF (00574)Indication: Iron deficiency anemia, unspecified On: :11 Request LIPID PANEL (63823)Indication: Hyperlipidemia On: :11 Request TSH (76661)Indication: Abnormal glucose tolerance test On: 06-Jun-20138:11 Request MICROALBUMIN: CREATININE RATIO (54680) AND (25378)Indication: Abnormal glucose tolerance test On: :11 Request METABOLIC PANEL, COMPREHENSIVE (66479)Indication: Abnormal glucose tolerance test On: 06-Jun-20138:11 Request FERRITIN (15938)Indication: Iron deficiency anemia, unspecified On: 7-Fdv-893871:11 Request CBC, PLATELETS & MANUAL DIFF (84532)Indication: Iron deficiency anemia, unspecified On: 5-Pzc-392254:10 Request IRON & TOTAL IRON BINDING CAPACITY (32328)Indication: Iron deficiency anemia, unspecified On: 3-Nwq-436120:08 Request FERRITIN (63688)Indication: Anemia, unspecified On: 49-Uua-366060:12 Request IRON (34495)Indication: Anemia, unspecified On: 08-Myc-123559:12 Request IRON BINDING CAPACITY (TIBC) (05280)Indication: Anemia, unspecified On: 72-Dpc-202585:11 Request FECAL OCCULT- Tubes sent home (93110)Indication: Anemia, unspecified On: :33 Request TRINIDAD TEST, DIRECT (25082)Indication: Anemia, unspecified On: :33 Request FOLIC ACID SERUM (00054)Indication: Anemia, unspecified On: :33 Request Methylmalonic acid, serum 96205Aubkiwjnza: Anemia, unspecified On: :33 Request VITAMIN B-12 (CYANOCOBALAMIN) (94083)Indication: Anemia, unspecified On: :33 Request RETICULOCYTE COUNT MANUL (13166)Indication: Anemia, unspecified On: :33 Request LDH (LD) (LACTATE DEHYDROGENASE) (81231)Indication: Anemia, unspecified On: :33 Request IRON BINDING CAPACITY (TIBC) (13223)Indication: Anemia, unspecified On: :33 Request IRON (98030)Indication: Anemia, unspecified On: :33 Request FERRITIN (07354)Indication: Anemia, unspecified On: :33 Request CBC, PLATELETS & AUT DIFF (47820)Indication: Anemia, unspecified On: :33 Request CBC with manual diff (58087)Indication: Hyperlipidemia On: 7-Ioh-254239:36 Request TSH ([id number])Indication: Abnormal glucose tolerance test On: :24 Request URINALYSIS, W/ MICRO (66064)Indication: Abnormal glucose tolerance test On: :24 Request MICROALBUMIN: CREATININE RATIO (14440) AND (30974)Indication: Abnormal glucose tolerance test On: :24 Request METABOLIC PANEL, COMPREHENSIVE (71721)Indication: Abnormal glucose tolerance test On: :24 Request LIPID PANEL (15623)Indication: Abnormal glucose tolerance test On: :24 Request CBC WITH MANUAL DIFF (15312)Indication: Abnormal glucose tolerance test On: :24 Request TSH ([id number])Indication: Abnormal glucose tolerance test On: :53 Request URINALYSIS, W/ MICRO (33419)Indication: Abnormal glucose tolerance test On: :53 Request MICROALBUMIN: CREATININE RATIO (44129) AND (11814)Indication: Abnormal glucose tolerance test On: :53 Request METABOLIC PANEL, COMPREHENSIVE (33317)Indication: Abnormal glucose tolerance test On: :53 Request LIPID PANEL (75810)Indication: Abnormal glucose tolerance test On: :53 Request CBC WITH MANUAL DIFF ([id number])Indication: Abnormal glucose tolerance test On: :53 Request Sed Rate Erythrocyte (19416)Indication: Abdominal pain On: 19-Zhz-570840:23 Request Metabolic Panel, Comprehensive (17760)Indication: Abdominal pain On: 01-Che-711164:23 Request CBC with manual diff (54931)Indication: Abdominal pain On: 40-Zhi-228549:23 Request IRON BINDING CAPACITY (TIBC) (22832)Indication: Iron deficiency anemia, unspecified On: :42 Request IRON (50288)Indication: Iron deficiency anemia, unspecified On: :41 Request FERRITIN (19237)Indication: Iron deficiency anemia, unspecified On: :41 Request TSH (68622)Indication: Depression On: :41 Request URINALYSIS, W/ MICRO (63662)Indication: Abnormal glucose tolerance test On: :41 Request MICROALBUMIN: CREATININE RATIO (28579) AND (73761)Indication: Abnormal glucose tolerance test On: :41 Request METABOLIC PANEL, COMPREHENSIVE (83700)Indication: Abnormal glucose tolerance test On: :41 Request LIPID PANEL (59072)Indication: Abnormal glucose tolerance test On: :41 Request CBC WITH MANUAL DIFF (78653)Indication: Abnormal glucose tolerance test On: :41 Request TSH ([id number])Indication: Abnormal glucose tolerance test On: :39 Request URINALYSIS, W/ MICRO (42029)Indication: Abnormal glucose tolerance test On: :39 Request MICROALBUMIN: CREATININE RATIO (96420) AND (55064)Indication: Abnormal glucose tolerance test On: :39 Request METABOLIC PANEL, COMPREHENSIVE (23049)Indication: Abnormal glucose tolerance test On: :39 Request LIPOPROTEIN, BLD, BY NMR (40244)Indication: Abnormal glucose tolerance test On: :39 Request LIPID PANEL (44699)Indication: Abnormal glucose tolerance test On: :38 Request CBC WITH MANUAL DIFF (35743)Indication: Abnormal glucose tolerance test On: :38 Request LIPID PANEL (33114)Indication: Hyperlipidemia On: 61-Ouv-127273:21 Request Comments: do in 6 months URINALYSIS W/O MICRO (74744)Indication: Abnormal glucose tolerance test On: :58 Request TSH (01746)Indication: Abnormal glucose tolerance test On: :58 Request MICROALBUMIN: CREATININE RATIO (32028) AND (97268)Indication: Abnormal glucose tolerance test On: :58 Request METABOLIC PANEL, COMPREHENSIVE (84512)Indication: Abnormal glucose tolerance test On: :58 Request CBC WITH MANUAL DIFF (37204)Indication: Abnormal glucose tolerance test On: :58 Request LIPID PANEL (07352)Indication: Abnormal glucose tolerance test On: :58 Request METABOLIC PANEL, COMPREHENSIVE (86858)Indication: Abnormal glucose tolerance test On: :58 Request MICROALBUMIN: CREATININE RATIO (34847) AND (54293)Indication: Abnormal glucose tolerance test On: :58 Request IRON BINDING CAPACITY (TIBC) (43139)Indication: Iron deficiency anemia, unspecified On: :57 Request IRON (14439)Indication: Iron deficiency anemia, unspecified On: :57 Request FERRITIN (82224)Indication: Iron deficiency anemia, unspecified On: :57 Request CBC, PLATELETS & AUT DIFF (12235)Indication: Iron deficiency anemia, unspecified On: :57 Request HgA1C , Office (33376)Indication: Abnormal glucose tolerance test On: :56 Request Lipid Panel (35277)Indication: Hyperlipidemia On: :54 Request Comments: do in 3-4 months-- and 12 hr fast Lipid Panel (82965)Indication: Hyperlipidemia On: :41 Request Planned Procedures Ultrasound - Abdomen Complete & On: 11-Feb-2018 Intent PelvisBy: Penny Shukla CNP XR ABDOMEN FLAT PLATE AND ERECT On: 11-Feb-2018 Intent (92660)By: Penny Shukla CNP ULTRASOUND AORTA (03652)By: Vazquez On: 15-Oct-2017 Intent Penny HOLDEN Comments: AND ATTENTION Aorta and Rt RENAL ARTERY SCREENING FOR OBSTRUCTIVE SLEEP APNEA On: 04-May-2017 Intent (19564)By: Shila Dinh DO, DO, Kathleen ATTENDED SLEEP STUDY (79986)By: On: 22-Apr-2017 Intent Shila Dinh DO, DO, Kathleen MAMMOGRAM BREAST BILATERAL SCREENING On: 20-Mar-2016 Intent DIGITAL (89208)By: Sihla Dinh DO, DO, Kathleen DEXA SCAN AXIAL SKELETON (79412)By: On: 14-Feb-2016 Intent Shila Dinh DO, DO, Kathleen Rocephin Injection, 2 Gram On: 23-Sep-2015 Intent (J0696)By: Penny Shukla CNP Comments: 102477h17.47790 grams Rocephin2.5 in each syringe - one in R and one L side, hip, IMML ELECTROCARDIOGRAM, COMPLETE (ECG) On: 23-May-2015 Intent (50381)By: Stephanie VILLELA, Radha El Comments: DO AT HOSPITAL Aerosol Treatment (18845)By: Vazquez On: 02-Jul-2014 Intent NAVINPenny E SPECIMEN HNDLNG/TRNSPRT, OFFC > LAB On: 02-Jul-2014 Intent (75247)By: Penny Shukla CNP IMMUNIZ ADMNIN, 1 VAC, SNGL/COMBO On: 22-Mar-2014 Intent (58781)By: Shila Dinh DO Comments: lot [id number] 02/06/2015location L armroute SQgiven by - msmith VIS and/or ABN signed Shila DUBON [place] (44278)By: Allegra DUBON, On: 22-Mar-2014 Intent Shila Jiang DO MAMMOGRAM, SCREENING, BOTH BREAST On: 29-Dec-2013 Intent (95390)By: Shila Dinh DO, DO, Kathleen COMPUTED TOMOGRAPHY ANGIOGRAPHY OF On: 18-Aug-2013 Intent BRAIN WITH CONTRAST (34042)By: Shila Dinh DO, DO, Kathleen Eprescribed prescriptions ([id number])By: On: 17-Feb-2013 Intent Shila Dinh DO, DO, Kathleen EKG (26837)By: Shila Dinh DO On: 01-Sep-2012 Intent Shila Dinh DO Comments: nsr no acute chg Eprescribed prescriptions ([id number])By: On: 02-May-2012 Intent Shari Scott LPN Eprescribed prescriptions ([id number])By: On: 25-Jan-2012 Intent Shila Dinh DO, DO, Kathleen Ultrasound - GallbladderBy: Allegra On: 25-Jan-2012 Intent Shila DUBON DO, Kathleen Radiology - Foot - LeftBy: Allegra DUBON, On: 17-Sep-2011 Intent Shila Jiang DO Comments: foot and toes EKG (90329)By: Shila Dinh DO On: 15-Oct-2010 Intent Shila Dinh DO Comments: nsr no acute chgn Inhaler Demonstration (36847)By: On: 04-Dec-2009 Intent Penny Shukla CNP Aerosol Treatment (75074)By: Vazquez On: 04-Dec-2009 Intent Penny HOLDEN EKG (65809)By: Shila Dinh DO On: 26-Sep-2009 Intent Shila Dinh DO Comments: NSR NO ACUTE CHG EKG (47069)By: Shila Dinh DO On: 19-Oct-2008 Intent Shila Dinh DO Comments: compared to old one mar 16ns no acute changes Echo CompleteBy: Shila Dinh DO On: 19-Oct-2008 Intent Shila Dinh DO Nuclear Stress Test/Stress On: 19-Oct-2008 Intent SPECT/TreadmillBy: Shila Dinh DO, DO, Kathleen TDAP VACCINE >7 IM (85532)By: Allegra On: 16-Jul-2008 Intent Shila DUBON DO, Kathleen Comments: Lot #[id number]-left deltoidDose0.5mlgiven by Juan F Fine LPN MRI - BrainBy: Shila Dinh DO On: 16-Jul-2008 Intent Shila Dinh DO Comments: mra carotids and brain to eval pulsatile tinnitus EKG (38277)By: Shari Scott LPN On: 26-Mar-2008 Intent Comments: done awnsr no acute changes-- EKG ([id number])By: Shila Dinh DO On: 18-Aug-2007 Intent Shila Dinh DO IMMUNIZ ADMNIN, 1 VAC, SNGL/COMBO On: 02-Feb-2007 Intent ([id number])By: Shari Scott LPN FLU VAC, SPLIT, >3 YEARS, INTRAMUSC On: 02-Feb-2007 Intent ([id number])By: Shari Scott LPN Comments: 0.5 cc given im lt arml lot [id number] exp 09-05-07 EKG ([id number])By: Shila Dinh DO On: 06-Oct-2006 Intent Shila Dinh DO Comments: NSR NO ACUTE ISCHEMIC CHANGES FLU VAC, SPLIT, >3 YEARS, INTRAMUSC On: 26-Jan-2006 Intent ([id number])By: Melinda Sloan IMMUNIZ ADMNIN, 1 VAC, SNGL/COMBO On: 26-Jan-2006 Intent ([id number])By: Melinda Sloan Planned Medications INJECTION, CEFTRIAXONE SODIUM, [...] Depression : Patient Instructions Indication: Depression Encounters Annotation/Addendum On: 15-Feb-2018 16:43 [facility] End: 15-Feb-2018 16:45 Office Visit On: 11-Feb-2018 13:26 Encounter Reason: [...] Started 1-2 hr later with eating taco dvaid. Stools 2 liquid stool. 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
--- OUTSIDE RECORDS SUMMARY | 2018-04-05 19:33 | XMS RPT_ITS ---
:1950 Author Organization [facility] Support Name Relationship Address Phone LUZMARIA YAO Unavailable [address] + [place] [address] LAN YAO Unavailable [address] + [place] [address] [facility] Unavailable [address] + [place] [address] LUZMARIA YAO Unavailable [address] + [place] [address] LAN YAO Unavailable [address] + [place] [address] [facility] Unavailable [address] + [place] [address] LUZMARIA YAO Unavailable [address] + [place] [address] LAN YAO Unavailable [address] + [place] [address] [facility] Unavailable [address] + [place] [address] LUZMARIA YAO Unavailable [address] + [place] [address] LAN YAO Unavailable [address] + [place] [address] [facility] Unavailable [address] + [place] [address] LUZMARIA YAO Unavailable [address] + [place] [address] LAN YAO Unavailable [address] + [place] [address] [facility] Unavailable [address] + [place] [address] JESSE YAOTER Unavailable [address] + [place] [address] LAN YAO Unavailable [address] + [place] [address] [facility] Unavailable [address] + [place] [address] JESSE YAOTER Unavailable [address] + [place] [address] LAN YAO Unavailable [address] + [place] [address] [facility] Unavailable [address] + [place] [address] LUZMARIA YAO Unavailable [address] + [place] [address] LAN YAO Unavailable [address] + [place] [address] [facility] Unavailable [address] + [place] [address] LUZAMRIA YAO Unavailable [address] + [place] [address] MAXIMILIAN LAN Unavailable [address] + [place] [address] [facility] Unavailable [address] + [place] [address] JESSE YAOTER Unavailable [address] + [place] [address] MAXIMILIANVANIGUEVARA Unavailable [address] + [place] [address] [facility] Unavailable [address] + [place] [address] JESSE YAOTER Unavailable [address] + [place] [address] LAN YAO Unavailable [address] + [place] [address] [facility] Unavailable [address] + [place] [address] MAXIMILIAN, LUZMARIA Unavailable [address] + [place] [address] LAN YAO Unavailable [address] + [place] [address] [facility] Unavailable [address] + [place] [address] LUZMARIA YAO Unavailable [address] + [place] [address] LAN YAO Unavailable [address] + [place] [address] [facility] Unavailable [address] + [place] [address] LUZMARIA YAO Unavailable [address] + [place] [address] LAN YAO Unavailable [address] + [place] [address] [facility] Unavailable [address] + [place] [address] LUZMARIA YAO Unavailable [address] + [place] [address] LAN YAO Unavailable [address] + [place] [address] [facility] Unavailable [address] + [place] [address] LUZMARIA YAO Unavailable [address] + [place] [address] LAN YAO Unavailable [address] + [place] [address] [facility] Unavailable [address] + [place] [address] LUZMARIA YAO Unavailable [address] [phone] [place] [address] LAN YAO Unavailable [address] + [place] [address] [facility] Unavailable [address] + [place] [address] LUZMARIA YAO Unavailable [address] [phone] [place] [address] MAXIMILIAN, LUKE Unavailable [address] + [place] [address] [facility] Unavailable [address] + [place] [address] JESSE YAOTER Unavailable [address] [phone] [place] [address] VANI YAOGUEVARA Unavailable [address] + [place] [address] [facility] Unavailable [address] + [place] [address] JESSE YAOTER Unavailable [address] [phone] [place] [address] VANI YAOGUEVARA Unavailable [address] + [place] [address] [facility] Unavailable [address] + [place] [address] MAXIMILIANJESSELUZMARIA Unavailable [address] [phone] [place] [address] MAXIMILIAN LAN Unavailable [address] + [place] [address] [facility] Unavailable [address] + [place] [address] LUZMARIA YAO Unavailable [address] [phone] [place] [address] VANI YAOGUEVARA Unavailable [address] + [place] [address] [facility] Unavailable [address] + [place] [address] JESSE YAOTER Unavailable [address] [phone] [place] [address] LAN YAO Unavailable [address] + [place] [address] [facility] Unavailable [address] + [place] [address] JESSE YAOTER Unavailable [address] [phone] [place] [address] LAN YAO Unavailable [address] + [place] [address] [facility] Unavailable [address] + [place] [address] LUZMARIA YAO Unavailable [address] [phone] [place] [address] LAN YAO Unavailable [address] + [place] [address] [facility] Unavailable [address] + [place] [address] Care Team Providers Name Role Phone Penny Shukla Attending Unavailable Ciesa, Penny Referring Unavailable Allegra, Shila Primary Care Unavailable Ciesa, Penny Attending Unavailable Ciesa, Penny Referring Unavailable Allegra, Shila Primary Care Unavailable Allegra, Shila Attending Unavailable Allegra, Shila Primary Care Unavailable MonaJacki Attending Unavailable Allegra, Shila Primary Care Unavailable MonaJacki Attending Unavailable Allegra, Shila Referring Unavailable Allegra, Shila Attending Unavailable Allegra, Shila Attending Unavailable Allegra, Shila Referring Unavailable Allegra, Shila Primary Care Unavailable Allegra, Shila Attending Unavailable Allegra, Shila Primary Care Unavailable Allegra, Shila Attending Unavailable Allegra, Shila Primary Care Unavailable Allegra, Shila Consulting Unavailable Rocky MountJacki Attending Unavailable [place]i Referring Unavailable Allegra, Shila Primary Care Unavailable Allegra, Shila Attending Unavailable Allegra, Shila Primary Care Unavailable Amy Kearney Attending Unavailable Allegra, Shila Referring Unavailable KearneyAmy Attending Unavailable Allegra, Shila Referring Unavailable ASSESSMENT, HEALTH RISK Attending Unavailable Allegra, Shila Primary Care Unavailable Alyssa Mcneill NP-C Attending Unavailable Allegra, Shila Referring Unavailable RHEA Wells Attending Unavailable Allegra, Shila Primary Care Unavailable Ciesa, Penny Attending Unavailable Ciesa, Penny Referring Unavailable Donald Lane Attending Unavailable Allegra, Shila Referring Unavailable Ciesa, Penny Attending Unavailable Ciesa, Penny Referring Unavailable Allegra, Shila Primary Care Unavailable Ciesa, Penny Attending Unavailable Allegra, Shila Primary Care Unavailable MonaJacki Attending Unavailable Allegra, Shila Referring Unavailable Allegra, Shila Primary Care Unavailable Allegra, Shila Attending Unavailable Allegra, Shila Primary Care Unavailable Allegra, Shila Attending Unavailable Allegra, Shila Referring Unavailable Allegra, Shila Primary Care Unavailable Allegra, Shila Attending Unavailable Allegra, Shila Referring Unavailable Allegra, Shila Primary Care Unavailable Penny Shukla Attending Unavailable Penny Shukla Referring Unavailable Allegra, Shila Primary Care Unavailable PROBLEMS PROBLEMS DATE TYPE CONDITION / CODE ATTENDING STATUS SOURCE 03/16/2018 Unknown R14.0 - Abdominal [place], Molly Active [place] distension Community (gaseous) / Hospital R14.0(ICD-10) Repository 03/09/2018 Unknown M81.0 - Age-related MonaJacki Active [place] osteoporosis Community without current Hospital pathological Repository fracture / M81.0(ICD-10) 10/20/2017 Unknown Z12.31 - Encounter MonaJacki murdock Active [place] for screening Community mammogram for Hospital malignant neoplasm Repository of breast / Z12.31(ICD-10) 10/19/2017 Unknown R09.89 - Other Penny Shukla Active [place] specified symptoms Community and signs involving Hospital the circulatory and Repository respiratory systems / R09.89(ICD-10) 10/15/2017 Unknown R19.7 - Diarrhea, Penny Shukla Active [place] unspecified / Community R19.7(ICD-10) Hospital Repository 07/19/2017 Unknown G47.33 - Kearney, Active [place] Obstructive sleep [facility] apnea (adult) Hospital (pediatric) / Repository G47.33(ICD-10) 07/19/2017 Unknown E66.3 - Overweight Kearney, Active [place] / E66.3(ICD-10) [facility] Repository 05/07/2017 Unknown R06.89 - Other Allegra, Active [place] abnormalities of [facility] breathing / Hospital R06.89(ICD-10) Repository PROCEDURES PROCEDURES No Procedure Records FoundRESULTS RESULTS WEB PUBLISHER OFFICE VISIT Observed: 03/17/2018 Status: F Source: [place] REPORT 10:43 AM [facility] REPOSITORY [facility] [place] [address] [place] [address] OFFICE VISIT Date of Service: 10/20/17 MR#: [id number] Acct: [id number] Name: TORIBIO YAO Rep #: [id number] : 1950 Provider: SHANE Dunn Age/Sex: 67/F Location: [facility] Status: Signed with Addenda ADDENDUM by SHANE Dunn on 03/17/18 at 1043 Addendum entered and electronically signed by RHEA Beard 03/17/18 10:43: Rectal exam was deferred. No masses palpated Assessment AND Plan Problems 1. Encounter for gynecological examination without abnormal finding Z01.419 2. Age-related osteoporosis without current pathological fracture M81.0 Plan - RHEA Beard Completed breast and pelvic exam Reviewed diet and exercise Pap NA Mammogram recent Contraception NA Colonoscopy up to date Bone density ordered for Feb 2018 RTO 1 year, prn with problems Jacki Dunn CLINICAL LABORATORY MANAGER Orders Orders: Medications New: 03/17/18 1043 <Electronically signed by Jacki WILKERSON> Date Jacki Dunn cc: * Signed Intake Vital Signs10/20/17 Height 5 ft 8 in 10/20/17 Weight: 185 lb 2 oz 10/20/17 Body Mass Index (BMI) 28.1 10/20/17 Blood Pressure 134/82 Intake Visit Reasons: ANNUAL Settlement Processor Required: No Is patient in pain?: No Allergies No Known Allergies Allergy (Verified 10/20/17 09:28) Medications Ferrous Sulfate 325 mg PO QODAY 06/29/14 [History Confirmed 10/20/17] Niacin [Niacin ER] 1,000 mg PO DAILY 06/29/14 [History Confirmed 10/20/17] Omeprazole [Prilosec] 20 mg PO DAILY 06/29/14 [History Confirmed 10/20/17] calcium carbonate 500 mg calcium (1,250 mg) tablet 500 mg PO QDAY tab 07/19/17 [History Confirmed 10/20/17] cholecalciferol (vitamin D3) 1,000 unit capsule 1,000 unit PO QDAY 07/19/17 [History Confirmed 10/20/17] denosumab 60 mg/mL subcutaneous syringe 60 mg SC [id number] 07/19/17 [History Confirmed 10/20/17] fluoxetine 10 mg capsule 20 mg PO DAILY cap 07/19/17 [History Confirmed 10/20/17] ciprofloxacin 500 mg tablet 500 mg PO BID 10/20/17 [History Confirmed 10/20/17] conjugated estrogens 0.625 mg/gram vaginal cream See Label Instructions TOPICAL .COMPLEX 10/20/17 [History Confirmed 10/20/17] eletriptan 20 mg tablet 20 mg PO ONCE 10/20/17 [History Confirmed 10/20/17] Is last menstrual period known: No Post menopausal: Yes Patient : No : No [facility] Medical History Sinusitis, acute (Acute) Abdominal bloating [...] household members: spouse housing: house 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 DatName GA/WeeksOutcome Route [facility] LgAnesthesDel LocaProviderFOB e ht en tn Unknown 1977 Kauf[place] kael Unknown 1980 Shama as HPI ANNUAL: Details: TORIBIO YAO is a 67 year old who presents for annual exam. Last:2016 History of abnormal PAP: no Last mammogram: 06/2017 History of abnormal mammogram: no Colon cancer screenin BMD 02/2016 osteopenia and on prolia ROS Const Constitutional: Denies fatigue, weight gain or weight loss Cardio Card: Denies chest pain Resp Resp: Denies cough or shortness of breath with activity GI GI: Denies abdominal pain, constipation, change in stools, vomiting or bloating : Reports as per HPI; denies urinary frequency, pelvic pain, urinary urgency, vaginal discharge, vaginal itching, urinary incontinence or difficulty urinating Exam Const General: cooperative, healthy appearing, no acute distress, well developed Orientation: alert, oriented to person, oriented to place HENNY Head: normal to inspection Neck Neck: normal visual inspection Thyroid: thyroid normal Lymphatic: no lymphadenopathy noted Chest Breast inspection: normal inspection of the breasts, normal inspection of the axillae Breast palpation: normal palpation of the breasts, normal palpation of the axillae, no axillary lymphadenopathy Resp Effort AND Inspection: normal respiratory effort GI Palpation: soft, nontender, no masses Rectal Exam: mass, deferred External Female Exam: normal external appearance, normal appearance of the urethra Urethra: normal appearance of the urethra, normal palpation Speculum Exam - Vagina: normal vaginal discharge, atrophic vaginal mucosa Speculum Exam - Cervix: normal appearance of the cervix Bimanual Exam- Vagina AND Uterus: normal bimanual exam, uterine size normal, uterine shape normal, uterus non-tender Bimanual Exam- Adnexa, other: normal adnexae, no [...] 2018 RTO 1 year, prn with problems Jacki [place] CLINICAL LABORATORY MANAGER Orders Orders: Medications New: Coding Level of Care Code Off vis,est,prev 65+yrs Diagnoses Encounter for gynecological examination without abnormal finding Z01.419 Gynecological examination findings: abnormal findings ABSENT Age-related osteoporosis without current pathological fracture M81.0 Osteoporosis type: age-related Presence of current pathological fracture: without current pathological fracture 10/20/17 1221 <Electronically signed by Jacki MILLANC> Date Jacki Dunn NP-C Cosigner Signature: Date (if applicable) CC: WEB PUBLISHER OFFICE VISIT Observed: 03/16/2018 Status: F Source: [place] REPORT 4:14 PM [facility] REPOSITORY [facility] [address] [place] [address] OFFICE VISIT Date of Service: 03/16/18 MR#: [id number] Acct: [id number] Name: MAXIMILIANTORIBIO Rep #: [id number] : 1950 Provider: SHANE Dunn Age/Sex: 67/F Location: [facility] Status: Signed Intake Vital Signs03/16/18 Height 5 ft 8 in 03/16/18 Weight: 189 lb 8 oz 03/16/18 Body Mass Index (BMI) 28.8 03/16/18 Blood Pressure 166/106 H Intake Visit Reasons: REVIEW U/S RESULTS Settlement Processor Required: No Is patient in pain?: No Allergies No Known Allergies Allergy (Verified 03/16/18 15:51) Medications Ferrous Sulfate 325 mg PO QODAY 06/29/14 [History Confirmed 03/16/18] Niacin [Niacin ER] 1,000 mg PO DAILY 06/29/14 [History Confirmed 03/16/18] Omeprazole [Prilosec] 20 mg PO DAILY 06/29/14 [History Confirmed 03/16/18] calcium carbonate 500 mg calcium (1,250 mg) tablet 500 mg PO QDAY tab 07/19/17 [History Confirmed 03/16/18] cholecalciferol (vitamin D3) 1,000 unit capsule 1,000 unit PO QDAY 07/19/17 [History Confirmed 03/16/18] denosumab 60 mg/mL subcutaneous syringe 60 mg SC [id number] 07/19/17 [History Confirmed 03/16/18] fluoxetine 10 mg capsule 20 mg PO DAILY cap 07/19/17 [History Confirmed 03/16/18] conjugated estrogens 0.625 mg/gram vaginal cream See Rx Instructions TOPICAL .COMPLEX 10/20/17 [History Confirmed 03/16/18] eletriptan 20 mg tablet 20 mg PO ONCE 10/20/17 [History Confirmed 03/16/18] [facility] Medical History Sinusitis, acute (Acute) Abdominal bloating [...] household members: spouse housing: house 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 pets and animals: Yes pets and animals: dog(s) Smoking Status: Never smoker alcohol intake: never substance use type: does not use caffeine: Yes what type of physical activity do you participate in: walking frequency: 3-4 times per week seatbelt use: always do you feel safe at home: Yes additional social history: -Luzmaria- 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 She had had CT and US due to bloating that started 2 months ago. It persists. CT of abdomen normal. Denies any vaginal spotting or bleeding. Pregancy History 2 Elective abortions Hx Para 2 Spontaneous abortions Past Pregnancies Del. DatName GA/WeeksOutcome [facility] Shay LgAnesthesDel LocaProviderFOB e ht en ia tn Unknown 1977 Kaufman kael Unknown 1980 Shama as ROS Const Constitutional: Reports system reviewed and no additional complaints, except as docu GI GI: Denies abdominal pain or change in bowel habits Exam Const General: no acute distress Nutritional Appearance: well nourished Orientation: oriented x3 Resp Effort AND Inspection: normal respiratory effort Assessment AND Plan Problems 1. Bloating R14.0 Plan Discussed option of endometrial biopsy vs repeat US 6-8 weeks to confirm fluid resolved/stable. She prefers to do US and this will be scheduled. She will call me if any bleeding is noted. Also initial BP elevated but normal after discussion. She will monitor at her employer office. 15 min FTF counseling with patient. Orders Orders: Coding Level of Care Code Off vis,est,level 3 Diagnoses Bloating R14.0 03/16/18 3174 <Electronically signed by Jacki WILKERSON> Date Jacki WILKERSON Cosigner Signature: Date (if applicable) CC: DEXA BONE DENSITY Observed: 03/09/2018 Status: F Source: [place] STUDY 8:33 AM [facility] REPOSITORY [facility] Imaging Services [employer] [place] [address] Dexa Bone Density Study MR#: [id number] Acct: [id number] Name: TORIBIO YAO Rep #: [id number] : 1950 F 67 From: Win Vizcaino MD PCP: Shila Dinh DO Status: REG CLI Study: Dexa Bone Density Study Date of Exam: 03/09/18 Exam# [id number] Ordering Dr: Jacki Dunn MEDICAL TRANSCRIPTION-[place] STUDY: DUAL ENERGY X-RAY ABSORPTIOMETRY / DXA REASON FOR EXAM: Female, 67 years old. The patient is postmenopausal. Loss of height. TECHNIQUE: Bone Mineral Density (BMD) measurements of lumbar spine and bilateral hips were obtained. COMPARISON: Comparison is made with prior study dated February 25, 2016. FINDINGS: Lumbar Spine (L1-L4): g/cm2 (0.839) / T-score (-2.8) / Z-score (-1.2) Findings are suggestive of osteoporosis with a high fracture risk. Left Femur Total: g/cm2 (0.827) / T-score (-1.4) / Z- score (-0.2) Left Femoral Neck: g/cm2 (0.800) / T-score (-1.7) / Z- score (-0.2) Right Femur Total: g/cm2 (0.828) / T-score (-1.4) / Z- score (-0.2) Right Femoral Neck: g/cm2 (0.784) / T-score (-1.8) / Z-score (-0.3) The T-Scores on the most recent prior examination were: Lumbar Spine (L1-L4): There has been improvement of bone density since the previous examination. Left Femur Total: which represents an improvement of 5.6%. Right Femur Total: which represents an improvement of 4.8%. BD/Dexa Bone Density Study IMPRESSION: The patient is considered osteoporotic as outlined below according to World Enrrique Organization (WHO) criteria with a high fracture risk. There has been improvement of bone density since the previous examination. Reference Information: The T-score is the number of standard deviations above or below the standard which is normal for young adults at their peak bone mineral density. The World Health Organization (WHO) interprets the T-scores as follows: Above -1 Normal bone density Between -1 and -2.5 Osteopenia Equal to / or below -2.5 Osteoporosis As a practical clinical guideline, osteopenia may be graded as follows: Mild -1 through -1.5 Moderate -1.6 through -2.0 Severe -2.1 through -2.4 The Z-score is the number of standard deviations above or below age-matched controls. A Z-score of less than -1.5 would be considered abnormal. References: 1. NIH Osteoporosis and Related Bone Diseases http://www.osteo.org 2. International Society for Clinical Densitometry http://www.iscd.org 3. National Osteoporosis Foundation http://www.nof.org Electronically Signed: Win Vizcaino MD at 15:30 EST Tel [phone], Service support , CC: SHANE Dunn; Shila Dinh DO Horticultural Farmworker: Signed TRANSVAGINAL Observed: 02/21/2018 Status: F Source: [place] NON- 4:50 PM [facility] REPOSITORY [facility] Imaging Services [address] [place] [address] Transvaginal Non- MR#: [id number] Acct: [id number] Name: TORIBIO YAO Estuardo Rep #: [id number] : 1950 F 67 From: Win Vizcaino MD PCP: Shila Dinh DO Status: REG CLI Study: Transvaginal Non- Date of Exam: 02/21/18 Exam# [id number] Ordering Dr: Penny Shukla MEDICAL TRANSCRIPTIONMacy STUDY: ULTRASOUND OF THE FEMALE PELVIS - COMPLETE REASON FOR EXAM: Female, 67 years old. History of low bloating and occasional pain. LMP: The patient is postmenopausal. TECHNIQUE: Transabdominal and Transvaginal TECHNICAL QUALITY: Adequate. COMPARISON: None. FINDINGS: The uterus is retroverted and is in a midline position. The uterus measures 6 cm x 4.6 cm by 3.1 cm. Normal uterine cervix. The endometrium measures 1.5 mm in thickness, and is fluid distended. There is no demonstrated endometrial mass. There are 2 subcentimeter uterine fibroids. I.U.D. - The patient does not have an I.U.D. The right ovary is non-visualized. The left ovary is non-visualized There is no fluid in the cul-de-sac. The pre void volume of the bladder was 176 ml. Polycystic ovary disease: No. US/Transvaginal Non- IMPRESSION: Fluid-filled endometrium. There are 2 subcentimeter uterine fibroids. Electronically Signed: Win Vizcaino MD at 8:40 EST Tel [phone], Service support , CC: Penny Shukla NP; Shila Dinh DO Horticultural Farmworker: Signed PELVIC (NON ) Observed: 02/21/2018 Status: F Source: [place] 4:36 PM [facility] REPOSITORY [facility] Imaging Services [address] [place] [address] Pelvic (Non ) MR#: [id number] Acct: [id number] Name: TORIBIO YAO Rep #: [id number] : 1950 F 67 From: Win Vizcaino MD PCP: Shila Dinh DO Status: REG CLI Study: Pelvic (Non ) Date of Exam: 02/21/18 Exam# [id number] Ordering Dr: Penny Shukla STUDY: ULTRASOUND OF THE FEMALE PELVIS - COMPLETE REASON FOR EXAM: Female, 67 years old. History of low bloating and occasional pain. LMP: The patient is postmenopausal. TECHNIQUE: Transabdominal and Transvaginal TECHNICAL QUALITY: Adequate. COMPARISON: None. FINDINGS: The uterus is retroverted and is in a midline position. The uterus measures 6 cm x 4.6 cm by 3.1 cm. Normal uterine cervix. The endometrium measures 1.5 mm in thickness, and is fluid distended. There is no demonstrated endometrial mass. There are 2 subcentimeter uterine fibroids. I.U.D. - The patient does not have an I.U.D. The right ovary is non-visualized. The left ovary is non-visualized There is no fluid in the cul-de-sac. The pre void volume of the bladder was 176 ml. Polycystic ovary disease: No. US/Pelvic (Non ) IMPRESSION: Fluid-filled endometrium. There are 2 subcentimeter uterine fibroids. Electronically Signed: Win Vizcaino MD at 8:40 EST Tel [phone], Service support , CC: Penny Shukla NP; Shila Dinh DO Horticultural Farmworker: Signed ABDOMEN COMPLETE Observed: 02/18/2018 Status: F Source: [place] 7:57 AM [facility] REPOSITORY [facility] Imaging Services [address] [place] [address] Abdomen Complete MR#: [id number] Acct: [id number] Name: TORIBIO YAO Rep #: [id number] : 1950 F 67 From: Jovani Polo MD PCP: Shila Dinh DO Status: REG CLI Study: Abdomen Complete Date of Exam: 02/18/18 Exam# [id number] Ordering Dr: Penny Shukla STUDY: ABDOMINAL ULTRASOUND REASON FOR EXAM: Female, 67 years old. Bloating and diarrhea. Pain. History of cholecystectomy in 2011. TECHNIQUE: Multiple ultrasound images were obtained of the abdomen. TECHNICAL QUALITY: Good technical quality. COMPARISON: None. FINDINGS: Liver: The liver measures 14.8 cm. . There is normal echogenicity of the liver. The bile ducts are within normal limits. There is hepatic color flow. The direction of portal flow is hepatopetal. There is no demonstrated mass lesion. Portal vein measurement: Gallbladder: Patient is status post cholecystectomy. Common Bile Duct (C.B.D.): The common bile duct measures 4.6 mm mm. Pancreas: Normal size of the head, body and tail of the pancreas. There is normal echogenicity of the pancreas. There is no demonstrated pancreatic mass or cyst. Spleen: Normal size of the spleen. The spleen measures 10.4 cm cm. Right Kidney: Normal size of the right kidney. The right kidney measures 10.9 x 5.2 x 3.9 cm. cm. Normal renal cortex. The right cortex measures 1.3 cm cm. There is no demonstrated renal mass or cyst. There is no right hydronephrosis. Left Kidney: Normal size of the left kidney. The left kidney measures 11.5 x 5.5 x 4.9 cm. cm. Normal renal cortex. The left cortex measures 1.4 cm. cm. There is no demonstrated renal mass or cyst. There is no left hydronephrosis. Aorta: There is mild atherosclerotic plaque in the mid to distal abdominal aorta. Aorta measures 1.7 cm throughout its visualized course. I.V.C.: The IVC is patent. There is no ascites. US/Abdomen Complete IMPRESSION: Normal abdominal ultrasound examination. Electronically Signed: Jovani Christ, at 8:49 EST Tel , Service support , CC: Penny Shukla NP; Shila Dinh DO Horticultural Farmworker: Signed ABD INC DECUB Observed: 02/11/2018 Status: F Source: GENARO AND/OR ERECT 2:27 PM [facility] REPOSITORY [facility] [place] [address] Abd Inc Decub and/or Erect MR#: [id number] Acct: [id number] Name: TORIBIO YAO Rep #: [id number] : 1950 F 67 From: Juancarlos Polo MD PCP: Shila Dinh DO Status: REG CLI Study: Abd Inc Decub and/or Erect Date of Exam: 02/11/18 Exam# [id number] Ordering Dr: Penny Shukla MEDICAL TRANSCRIPTION-C STUDY: X-RAY - ABDOMEN/PELVIS REASON FOR EXAM: Female, 67 years old. Bloating sensation, diarrhea, abdominal discomfort TECHNIQUE: AP supine and upright views of the abdomen and pelvis. COMPARISON: None. FINDINGS: Normal visualized lung bases. No dilated loops of small bowel. There is gaseous distention and fecal retention of the colon, right more than left. Surgical clips project over the right abdomen. There is no demonstrated free abdominal air. The visualized liver, spleen and kidneys are grossly normal in size and morphology. Normal soft tissue structures. Mild scoliosis towards the left of the lumbar spine. Mild degenerative narrowing of the bilateral hips. RAD/Abd Inc Decub and/or Erect IMPRESSION: 1. Nonobstructive bowel gas pattern. 2. Moderate fecal retention. Electronically Signed: Juancarlos Polo MD at 0:39 EST , Service support , CC: Penny Shukla NP; Shila Dinh DO Horticultural Farmworker: Signed HEMOGLOBIN A1C Collected: 11/01/2017 Status: F Source: REYDON 2:41 PM [facility] REPOSITORY TYPE CODE TESTS RESULT OUT OF RANGE REFERENCE UNITS LAB L501.9985 4.2-6.3 % Normal HGB A1C 5.4 Performed By: #### L501.9985 #### [facility] [address] [place], [address] AORTA Observed: 10/19/2017 Status: F Source: REYDON 7:59 AM [facility] REPOSITORY [facility] Imaging Services [address] [place] [address] Aorta MR#: [id number] Acct: [id number] Name: TORIBIO YAO Rep #: [id number] : 1950 F 67 From: Win Vizcaino MD PCP: Shila Dinh DO Status: REG CLI Study: Aorta Date of Exam: 10/19/17 Exam# [id number] Ordering Dr: Penny Shukla PROCEDURES: ULTRASOUND AORTA REASON FOR EXAM: Female, 67 years old. Screening for abdominal aortic aneurysm. TECHNIQUE: Ultrasound evaluation of the aorta was performed with real-time and static betancourt-scale imaging. COMPARISON: None. FINDINGS: There is mild atherosclerotic plaque formation of the abdominal aorta. Aorta measures: Proximal 2.3 cm. Middle 1.9 cm. Distal 1.4 cm. Aorta measure transversely: Proximal 1.5 cm. Middle 1.7 cm. Distal 1.3 cm. Right iliac artery measures: 1.1 cm. Right iliac artery measure transversely: 0.9 cm. Left iliac artery measures: 0.9 cm. Left iliac artery measure transversely: 0.8 cm. There is no demonstrated aneurysm.. US/Aorta IMPRESSION: Minimal calcific plaque. No evidence of aneurysmal dilatation. Electronically Signed: Win Vizcaino MD at 9:34 EDT Tel [phone], Service support , CC: Penny Shukla MEDICAL TRANSCRIPTION; Shila Dinh DO Horticultural Farmworker: Signed PULMONARY VISIT REPORT Observed: 10/18/2017 Status: F Source: REYDON 11:41 AM [facility] REPOSITORY [facility] [address] [place] [address] OFFICE VISIT Date of Service: 10/18/17 MR#: [id number] Acct: [id number] Name: TORIBIO YAO Rep #: [id number] : 1950 Provider: Donald Lane MD Age/Sex: 67/F Location: [facility] [place] Status: Signed Assessment AND Plan Problems 1. FREDY (obstructive sleep apnea) G47.33 2. RLS (restless legs syndrome) G25.81 3. Over weight E66.3 Plan Patient appears to be doing well on the current AutoSet setting. Median pressure of 7 with a peak of 12 indicates that the current range is appropriate. Did stress to the patient the role of weight loss and the overall disease plan of care. Patient is reporting subjective improvement after initiation of Mirapex therapy. This can be continued. Patient states that she has a plan for weight loss including dietary modification and increased walking. Signs and symptoms of progression of FREDY were reviewed in detail and patient voiced understanding. Continue AutoSet with current interface. Encourage weight loss. Plan Detail Follow Up 1 Year (BWA) HPI 3 M FU: Chief Complaint: Follow-up sleep apnea Details: Patient is a 67-year-old female, currently in the care of Dr. Dinh, who presents for evaluation secondary to recent initiation of AutoSet therapy. Since last visit, patient denies any ER visits, hospitalizations or prednisone burst. Patient is currently on no inhalers. Patient has been using Mirapex on a nightly basis and reports subjective improvement in overall condition. Overall, patient feels that she is improved following initiation of Mirapex therapy. Patient did have to be transitioned from a nasal interface to nasal pillows secondary to comfort. Patient states that she typically will go to bed between 830 and 9:00. Patient does read a book prior to going to sleep and then falls asleep without issue. Patient denies taking any naps during the day. There is no pain at the interface site, epistaxis or sinus congestion reported. Patient does report the recent onset of diarrhea that she associates with eating fast food. Patient has been placed on antibiotics and antifungal with some improvement in overall condition. Patient did report that she checks her weight routinely, but refused to have weight checked at this office appointment. Documentation personally reviewed with the patient Compliance report (September 2017): Compliant 100% of days for an average of 7 hours 22 minutes on AutoSet with a residual AHI of 2.4. Medium pressure of 7.2 noted. Leak was well controlled. Intake Vital Signs10/18/17 Height 5 ft 8 in 10/18/17 Blood Pressure 144/79 10/18/17 Blood Pressure Location Rt brachial 10/18/17 Blood Pressure Position Sitting 10/18/17 Respiratory Rate 18 Intake Visit Reasons: 3 M FU Settlement Processor Required: No DME Vendor: Giuliano Accompanied by: Self Is patient in pain?: No Allergies No Known Allergies Allergy (Verified 10/18/17 11:14) Medications Ferrous Sulfate 325 mg PO QODAY 06/29/14 [History Confirmed 10/18/17] Niacin [Niacin ER] 1,000 mg PO [...] 60 mg/mL subcutaneous syringe 60 mg SC [id number] 07/19/17 [History Confirmed 10/18/17] fluoxetine 10 mg capsule 20 mg PO DAILY cap 07/19/17 [History Confirmed 10/18/17] loperamide 2 mg capsule 2 mg PO Q1-4H PRN #20 cap 10/05/17 [Rx Confirmed 10/18/17] ondansetron HCl 4 mg tablet 4 mg PO BID-TID PRN #20 tab 10/05/17 [Rx Confirmed 10/18/17] PFSH Medical History Sinusitis, acute (Acute) Abdominal [...] household members: spouse housing: house 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 pets and animals: Yes pets and animals: dog(s) Smoking Status: Never smoker alcohol intake: never substance use type: does not use Review of Systems Const CONSTITUTIONAL: Positive fatigue; negative anorexia, body ache, chills, daytime sleepiness, fever(s), night sweats, oral thrush, stops breathing during sleep, weight loss, sleeping in chair, weight loss, weight gain, frequent colds, seasonal allergies, other, orthopnea or headache(s) EETM Ear Nose Throat Mouth: Positive hearing normal and sore [...] developed, well nourished, good hygiene and obese; negative wearing supplemental oxygen, appears older than stated [...] crowded posterior oropharynx; negative post nasal drip, malodorous breath, no lesions or oral thrush present Mallampati Score: III: Mallampati Score Neck Neck: Positive normal visual inspection, thick neck, full ROM and trachea midline; negative lymphadenopathy or JVD Chest Wall Chest: Positive normal inspection [...] sounds; negative distended or ascites Genitourinary: Positive deferred Musc Musculoskeletal: Positive steady gait and ROM normal; negative using an assistive device for ambulation, kyphosis or scoliosis Skin Pulmonary Skin Exam: Positive intact; negative rash, lesion, ulcers, erythema or dermal atrophy Pulses Pulse: Yes radial pulses present Extremities Extremities: Yes capillary refill normal, No clubbing, No cyanosis, No edema Neuro Neurologic: Yes conversant, Yes no focal neuro deficits, Yes normal concentration, Yes understands questions, Yes cooperative, Yes normal cognition, Yes normal coordination Lymph Lymphatic: No lymphadenopathy Psych Appearance: Positive grossly normal Mental Status: Positive mental status grossly normal Mood: Positive congruent mood Affect: Positive normal affect Coding Level of Care Code Off vis,est,level 3 Diagnoses FREDY (obstructive sleep apnea) G47.33 RLS (restless legs syndrome) G25.81 Over weight E66.3 10/18/17 1141 <Electronically signed by Donald Lane MD> Date Donald Lane MD Cosigner Signature: Date (if applicable) CC: Shila Dinh DO STOOL Observed: 10/15/2017 Status: F Source: GENARO LACTOFERRIN/WBC 4:20 PM [facility] REPOSITORY Stool Lacto/WBC Normal Reference Range = Negative Fecal WBC Lactoferrin Negative: No Fecal WBC Lactoferrin present Performed By: #### M100.0605, M100.6796 #### [facility] [address] [place], [place], [id number] Observed: 10/15/2017 Status: F Source: GENARO CDIFF (MOLECULAR) 4:20 PM [facility] REPOSITORY Cdiff-Molecular Normal Reference Range = Negative C. Diff DNA Negative- No toxigenic C. Diff DNA Detected NAAT METHOD Testing was performed using nucleic acid amplification Performed By: #### M100.0605, M100.6796 #### [facility] [address] [place], [place], [id number] STOOL Observed: 10/06/2017 Status: F Source: GENARO LACTOFERRIN/WBC 6:45 PM [facility] REPOSITORY Reason for Exam: Diarrhea Stool Lacto/WBC Normal Reference Range = Negative Fecal WBC Lactoferrin Negative: No Fecal WBC Lactoferrin present Performed By: #### M100.0605, M100.637 #### [facility] [address] [place], [place], [address] Observed: 10/06/2017 Status: F Source: GENARO ENTERIC PATHOGEN 6:45 PM [facility] PANEL STOOL REPOSITORY Reason for Exam: Diarrhea EP PANEL STOOL Normal Reference Range = Not Detected Not detected for Campylobacter group, Salmonella species, Shigella species, Vibrio Group, Yersinia enterocolitica, EHEC (Shiga Toxin 1, Shiga Toxin 2), Norovirus Gl/Gll, and Rotavirus A. Other common stool pathogens are not detected on this panel include: Aeromonas/Plesiomonas or parasites. Order testing for these organisms separately if suspected. This is an amplified DNA test which makes it both specific and sensitive. CAMPYLOBACTER Not Detected Salmonella Not Detected Shigella sp. Not Detected Shiga Toxin Not Detected Yersinia Not Detected VIBRIO Not Detected Norovirus Not Detected Rotavirus Not Detected Performed By: #### M100.0605, M100.637 #### [facility] [address] [place], [address] OFFICE VISIT REPORT Observed: 10/05/2017 Status: F Source: GENARO 6:40 PM [facility] REPOSITORY [address] [place] [address] OFFICE VISIT Date of Service: 10/05/17 MR#: [id number] Acct: [id number] Patient: TORIBIO YAO Rep #: [id number] : 1950 Provider: RHEA Mcneill Age/Sex: 67/F Location: [facility] [place] Status: Signed Intake Vital Signs10/05/17 Height 5 ft 8 in 10/05/17 Blood Pressure 122/80 10/05/17 Blood Pressure Location Lt brachial 10/05/17 Blood Pressure Position Sitting Intake Visit Reasons: Diarrhea/GAS/STOMACH PAINS/ Chief Complaint: Diarrhea, Allergies No Known Allergies Allergy (Verified 10/05/17 18:04) Medications Ferrous Sulfate 325 mg PO QODAY 06/29/14 [History Confirmed 10/05/17] Niacin [Niacin ER] 1,000 mg PO DAILY 06/29/14 [History Confirmed 10/05/17] Omeprazole [Prilosec] 20 mg PO DAILY 06/29/14 [History Confirmed 10/05/17] calcium carbonate 500 mg calcium (1,250 mg) tablet 500 mg PO QDAY tab 07/19/17 [History Confirmed 10/05/17] cholecalciferol (vitamin D3) 1,000 unit capsule 1,000 unit PO QDAY 07/19/17 [History Confirmed 10/05/17] cinnamon bark 500 mg capsule 1,000 mg PO QDAY cap 07/19/17 [History Confirmed 10/05/17] denosumab 60 mg/mL subcutaneous syringe 60 mg SC [id number] 07/19/17 [History Confirmed 10/05/17] fluoxetine 10 mg capsule 20 mg PO DAILY cap 07/19/17 [History Confirmed 10/05/17] loperamide 2 mg capsule 2 mg PO Q1-4H PRN #20 cap 10/05/17 [Rx Confirmed 10/05/17] ondansetron HCl 4 mg tablet 4 mg [...] household members: spouse housing: house 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 Patient states this initially began after eating [employer] a week ago and thought her symptoms were due to food poisoning. She states she has had food poisoning in the past with similar symptoms. Complains of associated poor appetite. Denies significant nausea. Denies emesis. Denies abdominal pain, fever, chills. Reports a history of IBS. ROS Const Constitutional: Positive for malaise and change in appetite (Poor appetite); no fever(s), body ache, chills or excessive sweating ENT ENT: No neck pain Resp Respiratory: No cough or shortness of breath Cardio Cardiology: No chest pain at rest, chest pain with exertion, leg pain with exertion, excessive sweating, shortness of breath, dyspnea on exertion, generalized swelling, irregular heart rhythm, lightheadedness, orthopnea, radiating jaw, neck or arm pain, fast heart rate, slow heart rate, palpitations or other Gastro GI: Positive for bloating, diarrhea, loose stools and cramping; no abdominal pain, blood in stool, vomiting or Black,tarry stools Genitourinary-Female: No difficulty urinating, burning urination, painful urination, urinary incontinence, urinary frequency, urinary urgency, urinary hesitancy, urinary retention, blood in urine, Frequent nighttime urination/ nocturia, post void dribbling, suprapubic fullness, side pain, sexual problems, genital lesions, genital itching, hot flashes, abnormal periods, abnormal vaginal bleeding, absent period, painful periods, light periods, heavy periods, difficulty getting , painful intercourse, pelvic pain, vaginal dryness, vaginal odor, Vaginal Itching or other Musc Musculoskeletal: No abnormal walking, joint pain, back pain, deformity, joint swelling, limited range of motion, loss of height, muscle cramps, muscle weakness, decreased muscle mass, body aches, neck pain, numbness, radiating pain into limb, stiffness, tingling or other Skin Skin: No acne, hair loss, change in hair, nail changes, boil, change in skin color, dry skin, redness, excessive hair growth, yellowing of the skin, lesions, itching, rash, skin pain, skin ulcer, sores, skin swelling, wounds or other Breast Breast: No other Neuro Neurology: No abnormal walking, numbness or tingling Psych Psychiatric: Positive for change in appetite (Poor appetite) Endo Endocrine: No excessive sweating Aller/Imm Allergy/Immunologic: No itchy eyes Exam Const General: cooperative, healthy appearing, comfortable, no acute distress Nutritional Appearance: average body habitus Orientation: alert, awake, oriented x3 HENMT Head: normal to inspection Ears: hearing grossly normal bilaterally Nose: external nose normal Face and sinus: normal facial exam Mouth: oral mucosae normal Neck Neck: normal visual inspection Chest Chest palpation AND inspection: normal inspection of the chest Resp Effort AND Inspection: normal respiratory effort Cardio Rate: regular rate Rhythm: regular rhythm Heart Sounds: S1 normal, S2 normal Pulses: radial pulses present GI Inspection: normal to inspection Auscultation: hyperactive bowel sounds Percussion: normal to percussion Palpation: soft Musc Musculoskeletal: No muscle weakness Skin General: no rashes or lesions noted Neuro Cranial Nerves: CN's II-XI intact bilaterally Extrem General: normal to inspection Psych Affect: normal affect Assessment AND Plan Problems 1. Gastroenteritis K52.9 Plan Zofran 4mg PO BID PRN for Nausea. Imodium 2mg PO Q1-4H for loose stool. Send stool for enteric pathogen. Increase fluid intake. Patient instructed to follow up with PCP in 3-5 days, sooner if not improved. Patient instructed to go to ER if blood in stool, fever/chills, abdominal pain. Orders Orders: Medications New: loperamide (Imodium A-D) after each loose stool until sy2 mg PO Q1-4H PRN loose stool mptoms controlled;do not exceed 16 mg total dose in 24 hrs Coding Level of Care Code Off vis,new,level 3 Diagnoses Gastroenteritis K52.9 10/05/17 5830 <Electronically signed by Alyssa WILKERSON> Date Alyssa Osito MEDICAL TRANSCRIPTION-C Cosigner Signature: Date (if applicable) CC: CBC, EMPLOYEE Collected: 08/23/2017 Status: F Source: GENARO 8:04 AM [facility] REPOSITORY TYPE CODE TESTS RESULT OUT OF RANGE REFERENCE UNITS LAB L100.1000 4.4-11.0 K/mm3 Normal WBC 5.4 LAB L100.1200 4.2-5.4 M/mm3 Normal RBC 4.53 LAB L100.1300 12.0-15.0 g/dl Normal HGB 12.4 LAB L100.1400 37-47 % Normal HCT 37.7 LAB L100.1500 81-99 fL Normal MCV 83.2 LAB L100.1600 27.0-32.0 pg Normal MCH 27.4 LAB L100.1700 32-36 g/gl Normal MCHC 32.9 LAB L100.1810 11.6-14.6 % Normal RDW CV 12.4 LAB L100.1820 35.1-43.9 fl Normal RDW SD 37.5 LAB L100.1900 150-450 K/mm3 Normal PLT 323 LAB L100.2000 6.2-12.0 fl Normal MPV 9.1 LAB L100.2110 47-70 % Normal NEUT% 61.6 LAB L100.2210 19-41 % Normal LY% 28.4 LAB L100.2310 0-10 % Normal MONO% 10.0 LAB L100.2410 0-5 % Normal EO% 0.0 LAB L100.2510 0-1 % Normal BASO% 0.0 LAB L100.2620 2.0-7.7 X10 3/uL Normal Absolute Neut 3.3 LAB L100.2720 0.83-4.51 X10 3/ul Normal Absolute Lymph 1.53 Performed By: #### L100.0200 #### [facility] [address] [place], [place], [id number] URINALYSIS, EMPLOYEE Collected: 08/23/2017 Status: F Source: REYDON 8:04 AM [facility] REPOSITORY TYPE CODE TESTS RESULT OUT OF RANGE REFERENCE UNITS LAB L400.3000 Yellow COLOR Normal Yellow LAB L400.3050 Clear Normal CLARITY Sl. Cloudy LAB L400.3200 Normal mg/dl Normal GLUCOSE, UR Normal LAB L400.3300 Negative mg/dL Normal BILIRUBIN URINE Negative LAB L400.3400 Negative mg/dl Normal KETONE UR Negative LAB L400.3465 1.002-1.030 Normal SP.GR. DIPSTX 1.010 LAB L400.3550 5.0 - 8.0 pH UR Normal 7.0 LAB L400.3600 Negative mg/dl High PROT 15 DIPSTX LAB L400.3700 Normal mg/dl Normal UROBILI Normal LAB L400.3750 Negative Normal NITRITE UR Negative LAB L400.3780 Negative /ul High 10 OCCULT BLOOD-UR LAB L400.3800 Negative /ul High LEUK 25 ESTERASE Performed By: #### L400.0100 #### [facility] [address] [place], [address] EMPLOYEE PROFILE Collected: 08/23/2017 Status: F Source: REYDON 8:04 AM [facility] REPOSITORY TYPE CODE TESTS RESULT OUT OF RANGE REFERENCE UNITS LAB L501.0100 74-106 mg/dL Normal GLU 93 Result Comment: Please note revised GLUCOSE reference range effective 2017. LAB L501.1000 7-18 mg/dL Normal BUN 17 LAB L501.1100 0.55-1.02 mg/dL Normal CREAT,SERUM 0.68 Result Comment: The validity of the calculated GFR AND GFRAA in patients over 70 years has not been determined. Clinical correlation is essential. LAB L501.1110 >60 mL/min Normal EST GFR 92 Result Comment: Non- GFR Calc LAB L501.1115 >60 mL/min Normal EST GFR - AA 111 Result Comment: GFR Calc LAB L501.1300 10-20 RATIO High BUN/CRE 24.9 LAB L501.1400 2.6-6.0 mg/dL Normal URIC 3.6 Result Comment: The drugs N-Acetylcysteine and Metamizole may falsely depress this assay. LAB L501.1500 6.4-8.2 g/dL Normal T PROT 6.9 LAB L501.1800 3.2-5.0 g/dL Normal ALB 3.5 LAB L501.1950 2.2-4.2 g/dL Normal GLOB 3.4 LAB L501.2000 0.9-2.4 RATIO Normal A/G 1.0 LAB L501.2200 8.5-10.1 mg/dL Normal CA 8.7 LAB L501.2300 2.5-4.9 mg/dL Normal PHOS 3.7 LAB L501.4100 15-37 U/L Normal AST 19 LAB L501.4305 45-117 U/L Normal ALK P 73 LAB L501.4405 13-56 U/L Normal ALT 27 LAB L501.4600 0.20-1.00 mg/dL Normal T BILI 0.30 LAB L501.4700 0.00-0.30 mg/dL Normal D BILI 0.09 LAB L501.4900 200 mg/dL Normal CHOL 151 Result Comment: <200 mg/dL Desirable 200-240 mg/dL Borderline >240 mg/dL High Risk LAB L501.5000 mg/dL Normal TRIG 47 Result Comment: The drugs N-Acetylcysteine and Metamizole may falsely depress this assay. Serum Triglycerides Reference Interval Normal <150 mg/dL Borderline high 150 - 199 mg/dL High 200 - 499 mg/dL Very High > or = 500 mg/dL LAB L501.5300 136-145 mmol/L Low NA 135 LAB L501.5600 3.5-5.1 mmol/L Normal K 4.2 LAB L501.5900 98-107 mmol/L Normal CL 100 LAB L501.6100 21.0-32.0 mmol/L Normal CO2 26.0 LAB L501.6200 5-15 Normal 9 GAP LAB L501.6400 mg/dL Normal HDL 62 Result Comment: The drugs N-Acetylcysteine and Metamizole may falsely depress this assay. Reference Range HDL <40 mg/dL Low HDL Cholesterol HDL >or= 60 mg/dL High HDL Cholesterol LAB L501.6475 Normal CHOL:HDL 2.40 LAB L501.6500 0-130 mg/dL Normal LDL 80 LAB L501.6600 5-40 mg/dL Normal VLDL 9 LAB L504.2610 84-246 U/L Normal LDH 175 Performed By: #### L500.2900 #### [facility] [address] [place], [address] NICOTINE URINE DRUG Collected: 08/23/2017 Status: F Source: GENARO SCREEN 8:04 AM [facility] REPOSITORY TYPE CODE TESTS RESULT OUT OF RANGE REFERENCE UNITS LAB L505.6250 TO BE Normal CONFIRMED Result Comment: CONFIRMATORY TESTING FOR ALL POSITIVE URINE DRUG SCREEN RESULTS WILL ONLY BE SENT OUT UPON PHYSICIAN ORDER. The results of Urine Drug Screen methods provide only preliminary analytical test results. A more specific alternate chemical method must be used in order to obtain a confirmed analytical result. Gas chromatography/mass spectrometery (GC/MS) is the preferred confirmatory method. Clinical consideration and professional judgement should be applied to any drug of abuse test result, particularly when preliminary positive results are used. LAB L505.6270 <200 ng/mL Normal COT DRG Negative SCREEN Result Comment: Cotinine is the first-stage metabolite of Nicotine. Performed By: #### L505.6240 #### [facility] [address] [place], [address] PULMONARY VISIT REPORT Observed: 08/20/2017 Status: F Source: GENARO 2:01 PM [facility] REPOSITORY [facility] [address] [place], [place] [address] OFFICE VISIT Date of Service: 08/20/17 MR#: [id number] Acct: [id number] Name: TORIBIO YAO Rep #: [id number] : 1950 Provider: Amy Kearney Age/Sex: 67/F [facility] Status: Signed Assessment AND Plan 1. FREDY (obstructive sleep apnea) G47.33 Status Acute Plan Showing improvement. No change in Pap settings. No indication for titration study at this point. Keep previously scheduled follow-up with Dr. Lane in October. She has been encouraged to contact the office if she has any difficulties in the meantime. 2. RLS (restless legs syndrome) G25.81 Status Acute Plan She plans to take the Mirapex daily until her follow-up with Dr. Lane in October. HPI 1 [...] 3-4. Previously she was having headaches almost daily, at this point she is only had 2 headaches in the past month. She also reports that she is waking up less frequently at night. She does report an occasional leak which occurs when she changes position while sleeping. She does admit that she [...] is complete. She is not napping, denies any difficulty with dry mouth. She does report that in the middle of the night her nose feels oily. She does have some questions about humidification, for which she plans to discuss this with her DME. He denies any shortness of breath, lower extremity edema, chest pain or palpitations. She has not experienced any cough, wheezing or chest tightness. See complete review of systems. She does report that her primary care provider ordered Mirapex for restless leg syndrome, and she uses it when I feel like I needed. She does admit that recently while reading the instructions on the medication as well as the medication insert that it is suggested that she take the medication daily consistently. She has not tried any [id number] medications for her sleep. Complaints report for the past 30 days shows the patient has been 100% compliant on the current settings of AutoPap 5-12 cm of water. Current use is an average of 7 hours nightly. Current AHI is 3.1 events per hour and leaks do not appear to be an issue. 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: [employer] Accompanied by: Self Is patient in pain?: No Allergies No Known Allergies Allergy (Verified 07/19/17 11:21) Medications Calcium Citrate/Vitamin D3 [Hm Calcium Citrate +Vit D3 Tab] 1 ea PO BID 06/29/14 [History Confirmed 08/20/17] Ferrous Sulfate 325 mg PO QODAY 06/29/14 [History Confirmed 08/20/17] Niacin [Niacin ER] 1,000 mg PO DAILY 06/29/14 [History Confirmed 08/20/17] Omeprazole [Prilosec] 20 mg PO DAILY 06/29/14 [History Confirmed 08/20/17] benzonatate 100 mg capsule 100 mg PO Q8H PRN #30 cap 02/26/17 [Rx Confirmed 08/20/17] conjugated estrogens 0.625 mg/gram vaginal cream See Label Instructions VAGINAL .COMPLEX #30 g 04/22/17 [Rx Confirmed 08/20/17] calcium carbonate 500 mg calcium (1,250 mg) tablet 500 mg PO QDAY tab 07/19/17 [History Confirmed 08/20/17] cholecalciferol (vitamin D3) 1,000 unit capsule 1,000 unit PO QDAY 07/19/17 [History Confirmed 08/20/17] cinnamon bark 500 mg capsule 1,000 mg PO QDAY cap 07/19/17 [History Confirmed 08/20/17] cyclobenzaprine 10 mg tablet 10 mg PO QDAY PRN tab 07/19/17 [History Confirmed 08/20/17] denosumab 60 mg/mL subcutaneous syringe 60 mg SC [id number] 07/19/17 [History Confirmed 08/20/17] eletriptan 20 mg [...] household members: spouse housing: house 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 pets and animals: Yes [...] discharge, post nasal drip, sinus pain, sinus pressure, sore throat or other Cardio Cardiovascular: Negative chest pain, chest pain at rest, chest pain with activity, irregular heart rhythm, edema, shortness of breath when lying down, palpitations, murmur or other Resp Respiratory: [...] Care Code Off vis,est,level 3 Diagnoses FREDY (obstructive sleep apnea) G47.33 RLS (restless legs syndrome) G25.81 08/20/17 1401 <Electronically signed by Amy WILKERSON> Date Amy WILKERSON Cosigner Signature: Date (if applicable) CC: Shila Dinh DO PULMONARY VISIT REPORT Observed: 07/19/2017 Status: F Source: [facility] 12:58 PM [facility] REPOSITORY [facility] of [address] [place] [address] OFFICE VISIT Date of Service: 07/19/17 MR#: [id number] Acct: [id number] Name: TORIBIO YAO Rep #: [id number] : 1950 Provider: Amy Kearney Age/Sex: 66/F Location: [facility] Status: Signed Assessment AND Plan 1. FREDY (obstructive sleep apnea) G47.33 Status Acute Plan New. Adjust AutoPap from 7-14 cm of water down to 5-12 cm water. Encouraged her to discuss the burning sensation she rinses with the use of her nasal pillows with the [employer] company, consider alternative masks. Follow-up in 1 month to review compliance and evaluate her acclamation to Pap therapy. She has been encouraged to communicate with the office if she has any difficulties in the meantime. Plan for her to follow- up with Dr. Lane in 3 months. 2. Over weight E66.3 Status Acute Plan Encourage weight loss, this may improve her airway clearance (decrease pressure support needs in). She does have a Mallampati score of 4, therefore I do not believe she be able to completely come off Therapy with weight loss. Plan Detail Follow Up 3 Months (BWA) 1 Month () HPI FREDY: Chief Complaint: Frequent headaches HPI Comments Details: This patient presents to the office today for an initial consultation regarding newly identified obstructive sleep apnea. She is ambulatory and currently on room air. Currently she is experiencing frequent nocturnal headaches. She notices that if she wakes up for an episode of nocturia and begins to experience a headache she was treated with Excedrin immediately, otherwise the headache will last the entire day. She also reports that these headaches are her own words are spring together for 6-7 days but are not [...] was only from set up in the [facility] office. Currently, she feels that it is too much pressure. She admits that when she removed the AutoPap she had a sense of relief. She also reports a burning sensation inside her nostrils where the nasal pillows rest. She denies any shortness of breath at rest, during conversation or even on exertion. She denies any cough, sputum production or hemoptysis. She denies any wheezing, chest tightness, chest pain or palpitations. She denies any fever, chills or body aches. She reports that she has never been a smoker and denies any pulmonary problems. Polysomnogram completed on May 06, 2017 shows that the patient has an overall AHI score of 53.4 events per hour. Was also noted that while in the supine position her AHI did increase up to 79.7 events per hour. Severe obstructive sleep apnea is the impression and a CPAP titration study was recommended. The patient had periodic limb movement index of 16.4 events per [...] AutoPap. AHI unfortunately remains elevated at 6.9 events per hour. Leaks do not seem to be a contributing factor. Intake Vital Signs07/19/17 Height 5 ft 8 in 07/19/17 Weight: 178 lb Intake Visit Reasons: FREDY DME Vendor: [employer] Accompanied by: Self Allergies No Known Allergies Allergy (Verified 07/19/17 11:21) Medications Calcium Citrate/Vitamin D3 [Hm Calcium Citrate +Vit D3 Tab] 1 ea PO BID 06/29/14 [History Confirmed 07/19/17] Ferrous Sulfate 325 mg PO QODAY 06/29/14 [History Confirmed 07/19/17] Niacin [Niacin ER] 1,000 mg PO DAILY 06/29/14 [History Confirmed 07/19/17] Omeprazole [Prilosec] 20 mg PO DAILY 06/29/14 [History Confirmed 07/19/17] benzonatate 100 mg capsule 100 mg PO [...] mg PO QDAY cap 07/19/17 [History Confirmed 07/19/17] cyclobenzaprine 10 mg tablet 10 mg PO QDAY PRN tab 07/19/17 [History Confirmed 07/19/17] denosumab 60 mg/mL subcutaneous syringe 60 mg SC [id number] 07/19/17 [History Confirmed 07/19/17] eletriptan 20 mg tablet 20 mg PO ONCE PRN 07/19/17 [History Confirmed 07/19/17] fluoxetine 10 mg capsule 20 mg PO DAILY cap 07/19/17 [History Confirmed 07/19/17] [facility] Medical History Sinusitis, acute (Acute) Abdominal bloating [...] Father Diabetes Mother Rheumatoid arthritis Social History household members: spouse Smoking Status: Never smoker alcohol intake: never Review of Systems Const CONSTITUTIONAL: Positive weight gain and headache(s); negative anorexia, body ache, chills, daytime sleepiness, fever(s), night sweats, oral thrush, stops breathing during sleep, weight loss, sleeping in chair, fatigue, weight loss, frequent colds, seasonal allergies, other or orthopnea EETM Ear Nose Throat Mouth: Positive headache(s) and hearing normal; negative hoarseness, dry mouth in morning, change in vision, itchy eyes, eye pain, swallowing Difficulty, ear pain, mouth pain, nasal congestion, nasal discharge, sinus pain, sinus pressure, sore [...] rash Neuro Neurological: Negative restless legs, confusion, weakness or other Psych Psychocological: Positive other (stress); negative abnormal sleep pattern, anxiety, thoughts of hurting self/others or hopelessness Lymph Lymphatic: Negative easy bleeding, easy bruising, other or swollen lymph nodes Exam Const Constitutional: Positive cooperative, in no acute respiratory distress, healthy appearing, well developed, well nourished, good hygiene and conversant Head Head: Positive normocephalic and atraumatic; negative cyanosis of lips/distal nose Eyes Eye: Positive clear conjunctiva and nystagmus; negative scleral abnormality Ears Ear: Positive hearing normal and external ears normal; negative hard of hearing Nose Nose: Positive external nose normal and no nasal discharge; negative epistaxis Mouth Mouth: Positive oral mucosae normal, crowded posterior oropharynx, good dentition and no lesions; negative post [...] negative rash, lesion, ulcers, erythema, scaly or dermal atrophy [...] E66.3 07/19/17 1258 <Electronically signed by Amy MILLANC> Date Amy MILLANC Cosigner Signature: Date (if applicable) CC: Shila Dinh DO CBC W/DIFF, AUTOMATED Collected: 06/29/2017 Status: F Source: [place] 8:29 AM [facility] REPOSITORY TYPE CODE TESTS RESULT OUT OF RANGE REFERENCE UNITS LAB L100.1000 4.4-11.0 K/mm3 Normal WBC 4.9 LAB L100.1200 4.2-5.4 M/mm3 Normal RBC 4.76 LAB L100.1300 12.0-15.0 g/dl Normal HGB 13.0 LAB L100.1400 37-47 % Normal HCT 40.5 LAB L100.1500 81-99 fL Normal MCV 85.1 LAB L100.1600 27.0-32.0 pg Normal MCH 27.3 LAB L100.1700 32-36 g/gl Normal MCHC 32.1 LAB L100.1810 11.6-14.6 % Normal RDW CV 13.0 LAB L100.1820 35.1-43.9 fl Normal RDW SD 40.4 LAB L100.1900 150-450 K/mm3 Normal PLT 337 LAB L100.2000 6.2-12.0 fl Normal MPV 9.4 LAB L100.2100 47-70 % Normal NEUT% 65.0 LAB L100.2200 19-41 % Normal LY% 25.9 LAB L100.2300 0-10 % Normal MONO% 9.1 LAB L100.2400 0-5 % Normal EO% 0.0 LAB L100.2500 0-1 % Normal BASO% 0.0 LAB L100.2550 0.0-0.9 % Normal IM GRAN % 0.000 Result Comment: IG% - Immature Granulocytes (promyelocytes, myelocytes and metamyelocytes) > 1% indicates that a LEFT SHIFT is Present. LAB L100.2620 2.0-7.7 X10 3/uL Normal Absolute Neut 3.2 LAB L100.2720 0.83-4.51 X10 3/ul Normal Absolute Lymph 1.26 Performed By: #### L100.0100 #### [facility] [address] [place], [place], [address] HEMOGLOBIN A1C Collected: 06/29/2017 Status: F Source: [place] 8:29 AM [facility] REPOSITORY TYPE CODE TESTS RESULT OUT OF RANGE REFERENCE UNITS LAB L501.9985 4.2-6.3 % Normal HGB A1C 5.2 Performed By: #### L501.9985 #### [facility] [address] [facility] [place], [address] COMPREHENSIVE METABOLIC Collected: 06/29/2017 Status: F Source: [facility] 8:29 AM [facility] REPOSITORY TYPE CODE TESTS RESULT OUT OF RANGE REFERENCE UNITS LAB L501.0100 74-106 mg/dL Low GLU 62 Result Comment: Please note revised GLUCOSE reference range effective 2017. LAB L501.1000 7-18 mg/dL Normal BUN 17 LAB L501.1100 0.55-1.02 mg/dL Normal CREAT,SERUM 0.77 Result Comment: The validity of the calculated GFR AND GFRAA in patients over 70 years has not been determined. Clinical correlation is essential. LAB L501.1110 >60 mL/min Normal EST GFR 80 Result Comment: Non- GFR Calc LAB L501.1115 >60 mL/min Normal EST GFR - AA 97 Result Comment: GFR Calc LAB L501.1300 10-20 RATIO High BUN/CRE 22.2 LAB L501.1500 6.4-8.2 g/dL T Normal PROT 7.4 LAB L501.1800 3.2-5.0 g/dL Normal ALB 3.9 LAB L501.1950 2.2-4.2 g/dL Normal GLOB 3.5 LAB L501.2000 0.9-2.4 RATIO Normal A/G 1.1 LAB L501.2200 8.5-10.1 mg/dL CA Normal 8.8 LAB L501.4100 15-37 U/L Normal AST 22 LAB L501.4305 45-117 U/L Normal ALK P 73 LAB L501.4405 13-56 U/L Normal ALT 28 LAB L501.4600 0.20-1.00 mg/dL T Normal BILI 0.30 LAB L501.5300 136-145 mmol/L NA Normal 136 LAB L501.5600 3.5-5.1 mmol/L K Normal 4.5 LAB L501.5900 98-107 mmol/L CL Normal 101 LAB L501.6100 21.0-32.0 mmol/L Normal CO2 29.0 LAB L501.6200 5-15 Normal GAP 6 Performed By: #### L500.4050, L501.9520, L503.6030, L503.6550 #### [facility] [address] [facility]. [place], [place], [id number] THYROID STIM HORMONE Collected: 06/29/2017 Status: F Source: [place] (TSH) 8:29 AM [facility] REPOSITORY TYPE CODE TESTS RESULT OUT OF RANGE REFERENCE UNITS LAB L501.9520 0.358-3.74 uIU/mL Normal TSH 1.61 Performed By: #### L500.4050, L501.9520, L503.6030, L503.6550 #### [facility] [address] [facility]. [place], [place], [id number] IRON+IRON BINDING Collected: 06/29/2017 Status: F Source: [facility] CAPACITY 8:29 AM [facility] REPOSITORY TYPE CODE TESTS RESULT OUT OF RANGE REFERENCE UNITS LAB L503.6075 250-450 ug/dL TIBC Normal 429 LAB L503.6150 50-170 ug/dL IRON Normal 73 LAB L503.6250 15.0-55.0 % IRON Normal SATURATION 17.0 Performed By: #### L500.4050, L501.9520, L503.6030, L503.6550 #### [facility] [address] [place], [address] FERRITIN Collected: 06/29/2017 Status: F Source: [place] 8:29 AM [facility] REPOSITORY TYPE CODE TESTS RESULT OUT OF RANGE REFERENCE UNITS LAB L503.6550 8-252 ng/mL Normal FERRITIN 18 Performed By: #### L500.4050, L501.9520, L503.6030, L503.6550 #### [facility] [place], [address] MICROALB:CREAT Collected: 06/29/2017 Status: F Source: [facility] 8:29 AM [facility] REPOSITORY TYPE CODE TESTS RESULT OUT OF RANGE REFERENCE UNITS LAB L501.1200 NO RANGE EST. mg/dL Normal UR CREAT 30.80 LAB L502.0500 NO RANGE EST. mg/L Normal 5.3 MICROALBUMIN ,UR LAB L502.0600 <30 mg/g CRE mg/g CRE Normal 17.3 MALB:CREAT Performed By: #### L502.0250 #### [facility] [place], [address] SCREENING MAMM (CAD), Observed: 06/22/2017 Status: F Source: [place] BILAT 4:37 PM [facility] REPOSITORY [facility] Imaging Services [address] [place] [address] SCREENING MAMM (CAD), BILAT MR#: [id number] Acct: [id number] Name: TORIBIO YAO Rep #: [id number] : 1950 F 66 From: Win Vizcaino MD PCP: Shila Dinh DO Status: REG CLI Study: SCREENING MAMM (CAD), BILAT Date of Exam: 06/22/17 Exam# [id number] Ordering Dr: Jacki Dunn MEDICAL TRANSCRIPTION-C MAMMOGRAPHY - BILATERAL SCREENING REASON FOR EXAM: Female, 66 years old. Routine annual screening examination. PERTINENT HISTORY: Non-contributory. TECHNIQUE: Digital bilateral breast lanette (3D mammographic acquisition) in the CC and MLO projections. 2-D mediolateral oblique (MLO) and craniocaudad (CC) views of both breasts were obtained. CAD: Full Field Digital Mammography with Computer Added Detection was performed. COMPARISON: Comparison is made with prior examination dated April 27, 2016 and March 20, 2015. FINDINGS: Breast Composition: The breasts are heterogeneously dense, which may obscure small masses. There are no dominant masses or suspicious calcifications. No other significant abnormalities are identified. There has been no significant change since the prior study. BI/SCREENING MAMM (CAD), BILAT IMPRESSION: Stable bilateral screening mammogram. Yearly follow-up mammogram recommended. (A) ASSESSMENT CATEGORY: BIRADS Category 1: Negative. A letter regarding these results will be sent to the patient by the facility within 30 days. Approximately 10% of breast cancers are not detected by mammography. A normal mammogram should not delay biopsy of a clinically suspicious abnormality. 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 ALLERGIES ALLERGIES DATE TYPE / CODE NAME / CODE REACTION SEVERITY SOURCE 03/16/2018 Drug No Known Unknown [facility] Allergy/4160 Allergies/F00 Hospital 26207(SNOMED 7448727(RXNOR Repository CT) M) ENCOUNTERS ENCOUNTERS ADMIT/DISCHARGE ACCOUNT ADMITTING ENCOUNTER LOCATION SOURCE NUMBER CLASS 03/16/2018/ [id number] Ambulatory BMSBuilding:B [place] 9 5 [facility] Repository 03/09/2018 [id number] Ambulatory BMSBuilding:B [place] 3 [facility] Repository 03/09/2018 [id number] Ambulatory [place] 1 [facility] ing:OPBD Repository 02/21/2018 [id number] Ambulatory [place] 0 [facility] ing:US Repository 02/18/2018 [id number] Ambulatory [place] 2 [facility] ing:US Repository 02/11/2018 [id number] Ambulatory [place] 3 [facility] ing:HPRAD Repository 11/15/2017 [id number] Ambulatory [place] 0 [facility] ing:MEDOUTP Repository 11/03/2017 [id number] [place] [place] 6 [facility] ing:MEDOUTP Repository 11/01/2017 [id number] Ambulatory [place] 7 [facility] ing:PAVLAB Repository 10/20/2017/ [id number] Ambulatory BMSBuilding:B [place] 8 9 [facility] Repository 10/20/2017 [id number] Ambulatory [place] 2 [facility] ing:LAB.FUTUR Repository E 10/19/2017 [id number] Ambulatory [place] 9 [facility] ing:US Repository 10/18/2017/ [id number] Ambulatory BMSBuilding:B [place] 8 4 [facility] Repository 10/15/2017 [id number] Ambulatory [place] 6 [facility] ing:LAB.FUTUR Repository E 10/07/2017 [id number] Ambulatory [place] 6 [facility] ing:PAVLAB Repository 10/05/2017/ [id number] Ambulatory BMSBuilding:B [place] 8 6 MS.NOW [facility] Repository 08/23/2017 [id number] Ambulatory [place] 5 [facility] ing:EMPH Repository 08/20/2017/ [id number] Ambulatory BMSBuilding:B [place] 8 3 [facility].W [facility] Repository 07/19/2017/ [id number] Ambulatory BMSBuilding:B [place] 8 3 [facility] Repository 06/29/2017 [id number] Ambulatory [place] 6 [facility] ing:LAB Repository 06/22/2017 [id number] Ambulatory [place] 1 [facility] ing:OPBI Repository 06/18/2017 [id number] Ambulatory [place] 1 [facility] ing:SL Repository 05/28/2017 [id number] Ambulatory [place] 6 [facility] ing:SL Repository 05/11/2017 [id number] Ambulatory [place] 2 [facility] ing:MEDOUTP Repository 05/06/2017 [id number] [place]ulatory [place] 7 [facility] ing:SL Repository PAYERS PAYERS ENCOUNTER GUARANTOR PAYER SUBSCRIBER SOURCE 03/16/2018 TORIBIO A Primary Insurance:[facility] TORIBIO Estu[id number] [facility] [id number] Number: Repository [address]Bhu: 330 [id number] [phone] () Date:1085-43-49ED [address] [address]RPXZWZ[address]K, [place] [address]DO: CHECK WEBSITE 03/16/2018 Secondary NOT GIVENUNK [place] Insurance:SELF PAY [facility] Number: Effective Repository Date:2018-03-16 03/09/2018 TORIBIO A Primary Insurance:[facility] TORIBIOMik [id number] [facility] [id number], [place] Number: Repository [address]Mvm: 330 [id number] [phone] () Date:6532-02-24TK [address] [address]UFIMRHXXL, [place] [address]OA: CHECK WEBSITE 03/09/2018 Secondary NOT GIVENUNK [place] Insurance:SELF PAY [facility] Number: Effective Repository Date:2018-03-09 03/09/2018 TORIBIO A Primary Insurance:[facility] TORIBIO Marte [place] [id number] [facility] [place] [facility] [id number], [place] Number: Repository [address]Coc: 330 [id number] [phone] () Date:6495-83-15RR [address] [address]BCJDUDDKH, [place] [address]DL: CHECK WEBSITE 03/09/2018 Secondary NOT GIVENUNK [place] Insurance:SELF PAY [facility] Number: Effective Repository Date:2017-10-20 02/21/2018 TORIBIO A Primary Insurance:[facility] TORIBIO Marte [place] [id number] [facility]: [facility] [place] [facility] [place] [id number], [place] Number: Repository [address]Eqy: 330 [id number] [phone] () Date:0595-96-70IW [address] [address]QUUJZVPBH, [place] [address]VA: CHECK WEBSITE 02/21/2018 Secondary NOT GIVENUNK [place] Insurance:SELF PAY [facility] Number: Effective Repository Date:2018-02-14 02/18/2018 TORIBIO A Primary Insurance:[facility] TORIBIO Marte [place] [id number] [facility]OB: [facility] [place] [facility]Kind[facility] [place] [id number], [place] Number: Repository [address]Xtv: 330 [id number] [phone] () Date:7996-89-31LX [address] [address]XITKLMEFD, [place] [address]KL: CHECK WEBSITE 02/18/2018 Secondary NOT GIVENUNK [place] Insurance:SELF PAY [facility] Number: Effective Repository Date:2018-02-14 02/11/2018 TORIBIO A Primary Insurance:[facility] TORIBIO Marte [place] [id number] [facility]OB: [facility] [place] [facility]Kind[facility] [place] [id number], [place] Number: Repository [address]Dda: 330 [id number] [phone] (HP) Date:5852-12-10MU [address] [address]BESTRAQAL, [place] [address]YO: CHECK WEBSITE 02/11/2018 Secondary NOT GIVENUNK [place] Insurance:SELF PAY [facility] Number: Effective Repository Date:2018-02-11 11/15/2017 TORIBIO A Primary Insurance:[facility] TORIBIO A [place] [id number] [address] [facility]OB: Community [place] SERVICESPolicy [id number], [place] Number: Repository [address]Etw: 330 [id number] [phone] () Date:2048-74-02IL [address] [address]XIJMAXSVY, [place] [address]HT: CHECK WEBSITE 11/15/2017 Secondary NOT GIVENUNK [place] Insurance:SELF PAY [facility] Number: Effective Repository Date:2017-11-03 11/03/2017 TORIBIO A Primary Insurance:[facility] TORIBIO A [place] [id number] [facility]OB: Community [place] SERVICESPolicy [id number], [place] Number: Repository [address]Hzn: 330 [id number] [phone] () Date:9927-69-27DX [address] [address]GVBYXOBDM, [place] [address]LW: CHECK WEBSITE 11/03/2017 Secondary NOT GIVENUNK [place] Insurance:SELF PAY Community [facility]: Effective Repository Date:2017-11-03 11/01/2017 TORIBIO A Primary Insurance:[facility] TORIBIO A [place] [id number] [facility] J[facility]NSONDOB: [facility]ic [id number], [place] Number: Repository [address]Bbh: 330 [id number] [phone] () Date:7082-93-57ZW [address] [address]HCIETKEGD, [place] [address]EE: CHECK WEBSITE 11/01/2017 Secondary NOT GIVENUNK [place] Insurance:SELF PAY [facility]: Effective Repository Date:2017-11-01 10/20/2017 TORIBIO A Primary Insurance:[facility] TORIBIO [place] [id number] [facility] [place]: Community [place] [facility] [id number], [place] Number: Repository [address]Ctm: 330 [id number] [phone] () Date:7490-24-82SZ [address] [address]EPZLMCQKE, [place] [address]YT: CHECK WEBSITE 10/20/2017 Secondary NOT GIVENUNK [place] Insurance:SELF PAY [facility] Number: Effective Repository Date:2017-10-20 10/20/2017 TORIBIO A Primary Insurance:[facility] TORIBIO [place] [id number] [facility] JOHNSONDOB: [facility] [place] [facility] 6088-41-25QRTRandall, [place] Number: Repository [address]Rnd: 330 [id number] [phone] () Date:2000-07-32BX [address] [address]LHFFGVTRN, [place] [address]CK: CHECK WEBSITE 10/20/2017 Secondary NOT GIVENUNK [place] Insurance:SELF PAY [facility] Number: Effective Repository Date:2017-10-20 10/19/2017 TORIBIO A Primary Insurance:[facility] TORIBIO [place] [id number] [facility] JOHNSONDOB: [facility] [place] [facility] 2049-86-28XMHRandall, [place] Number: Repository [address]Mgc: 330 [id number] [phone] () Date:4059-73-71EP [address] [address]DNPXQHDBK, [place] [address]JP: CHECK WEBSITE 10/19/2017 Secondary NOT GIVENUNK [place] Insurance:SELF PAY [facility] Number: Effective Repository Date:2017-10-15 10/18/2017 TORIBIO A Primary Insurance:[facility] TORIBIO [place] [id number] [facility] JOHNSONDOB: [facility] [place] [facility] 3418-03-98RHTRandall, [place] Number: Repository [address]Mrl: 330 [id number] [phone] (HP) Date:0071-13-80HM [address] [address]MNXLETCLM, [place] [address]VD: CHECK WEBSITE 10/18/2017 Secondary NOT GIVENUNK [place] Insurance:SELF PAY [facility] Number: Effective Repository Date:2017-10-08 10/15/2017 TORIBIO A Primary Insurance:[facility] TORIBIO Marte [place] [id number] [facility] J[facility]NSONDOB: Community [place] [facility] [id number], [place] Number: Repository [address]Hbi: 330 [id number] [phone] () Date:9145-62-20PH [address] [address]OHSDFKTTQ, [place] [address]FB: CHECK WEBSITE 10/15/2017 Secondary NOT GIVENUNK [place] Insurance:SELF PAY [facility] Number: Effective Repository Date:2017-10-15 10/07/2017 TORIBIO A Primary Insurance:[facility] TORIBIO [place]e [place] [id number] [facility] OCONTODOB: [facility] [place] [facility] [id number], [place] Number: Repository [address]Krr: 330 [id number] [phone] () Date:7521-40-07YE [address] [address]HARHOGKGM, [place] [address]KM: CHECK WEBSITE 10/07/2017 Secondary NOT GIVENUNK [place] Insurance:SELF PAY [facility] Number: Effective Repository Date:2017-10-07 10/05/2017 TORIBIO A Primary Insurance:[facility] TORIBIO Marte [place] [id number] [facility] OCONTODOB: [facility] [place] [facility] 7603-37-64RTKRandall, [place] Number: Repository [address]Ssg: 330 [id number] [phone] () Date:7466-87-02BP [address] [address]KDLBBWDAV, [place] [address]JU: CHECK WEBSITE 10/05/2017 Secondary NOT GIVENUNK [place] Insurance:SELF PAY [facility] Number: Effective Repository Date:2017-10-05 08/23/2017 TORIBIO A Primary NOT GIVENUNK [place] [id number] S Insurance:SELF PAY [place] Number: Effective Repository [address]Udg: Date:2017-08-23 ~330 -3 () 08/20/2017 TORIBIO A Primary Insurance:[facility] TORIBIO Marte [place] [id number] [facility] J[place]NSONDOB: Community [place] SERVICESPoly 7416-84-50RHARandall, [place] Number: Repository [address]Lmr: [id number] [phone] Date:6373-71-42OW [address] () [address]IMVSVSUHR, [place] [address]UK: CHECK WEBSITE 08/20/2017 Secondary NOT GIVENUNK [place] Insurance:SELF PAY [facility] Number: Effective Repository Date:2017-08-18 07/19/2017 TORIBIO A Primary Insurance:[facility] TORIBIO Marte [place] [id number] [facility] JOHNSONDOB: [facility] [place] [facility] 7839-29-66PWZRandall, [place] Number: Repository [address]Uvk: [id number] [phone] Date:1345-12-91DP [address] () [address]GTKVMFPSN, [place] [address]OF: CHECK WEBSITE 07/19/2017 Secondary NOT GIVENUNK [place] Insurance:SELF PAY [facility] Number: Effective Repository Date:2017-07-19 06/29/2017 TORIBIO A Primary Insurance:[facility] TORIBIO Marte [place] [id number] [facility] JOHNSONDOB: [facility] [place] [facility] 5927-33-21ISKRandall, [place] Number: Repository [address]Bpz: [id number] [phone] Date:1135-05-63XJ [address] () [address]LDPZFTVOC, [place] [address]FC: CHECK WEBSITE 06/29/2017 Secondary NOT GIVENUNK [place] Insurance:SELF PAY [facility] Number: Effective Repository Date:2017-06-29 06/22/2017 TORIBIO A Primary Insurance:[facility] TORIBIO Marte [place] [id number] [facility] JOHNSONDOB: [facility] [id number], [place] Number: Repository [address]Mai: [id number] [phone] Date:8333-63-72OR [address] (HP) 20141ZFLOTBNLC, [place] [address]SC: CHECK WEBSITE 06/22/2017 Secondary NOT GIVENUNK [place] Insurance:SELF PAY [facility] Number: Effective Repository Date:2017-05-27 06/18/2017 TORIBIO A Primary Insurance:[facility] TORIBIO A [place] [id number] [facility] JOHNSONDOB: Community [place] [facility] 7449-87-38ATPRandall, [place] Number: Repository [address]Jxe: [id number] [phone] Date:5743-90-44FZ [address] () [address]BNCYLNUWC, [place] [address]SS: CHECK WEBSITE 06/18/2017 Secondary NOT GIVENUNK [place] Insurance:SELF PAY [facility] Number: Effective Repository Date:2017-05-28 05/28/2017 TORIBIO A Primary Insurance:[facility] TORIBIO A [place] [id number] [facility] JOHNSONDOB: [facility] [place] [facility] 1428-91-41LUJRandall, [place] Number: Repository [address]Cup: 330 [id number] [phone] (HP) Date:7440-53-50WL [address] [address]RONSOMYKV, [place] [address]YV: CHECK WEBSITE 05/28/2017 Secondary NOT GIVENUNK [place] Insurance:SELF PAY [facility] Number: Effective Repository Date:2017-05-18 05/11/2017 TORIBIO A Primary Insurance:[facility] TORIBIO A [place] [id number] [facility] J[facility]NSONDOB: [facility] [id number], [place] Number: Repository [address]Yvn: 330 [id number] [phone]) Date:8032-98-48KG [address] [address]KGBDGKUCG, [place] [address]MP: CHECK WEBSITE 05/11/2017 Secondary NOT GIVENUNK [place] Insurance:SELF PAY [facility] Number: Effective Repository Date:2017-05-11 05/06/2017 TORIBIO Marte Primary Insurance:[facility] TORIBIO [id number] [facility] JOHNSONDOB: [facility] 3083-64-27CKVRandall, [place] Number: Repository [address]Ihs: (346) [id number] [phone] () Date:6297-01-12XK [address] [address]JYFLPSRON, [place] [address]MD: CHECK WEBSITE 05/06/2017 Secondary NOT GIVENUNK [place] Insurance:SELF PAY [facility] Number: Effective Repository Date:2017-04-23
== END ==
PROVIDERS: Family Provider Internal Medicine; PCP Internal Medicine; Referring Provider Nurse Practitioner; Visit Provider Nurse Practitioner
DX: R19.7 Diarrhea, unspecified (principal)
CPT/HCPCS: 76700

== ENCOUNTER → 2018-02-21 16:31 | Outpatient (CLI) | payer OTHER, SELFPAY ==
[2017-05-28 15:21] VITALS: BMI 26.0
[2017-10-20 09:33] VITALS: BMI 28.1
--- NOTE | 2018-02-21 16:34 | US_ITS ---
STUDY: ULTRASOUND OF THE FEMALE PELVIS - COMPLETE REASON FOR EXAM: Female, 67 years old. History of low bloating and occasional pain. LMP: The patient is postmenopausal. TECHNIQUE: Transabdominal and Transvaginal TECHNICAL QUALITY: Adequate. COMPARISON: None. FINDINGS: The uterus is retroverted and is in a midline position. The uterus measures 6 cm x 4.6 cm by 3.1 cm. Normal uterine cervix. The endometrium measures 1.5 mm in thickness, and is fluid distended. There is no demonstrated endometrial mass. There are 2 subcentimeter uterine fibroids. I.U.D. - The patient does not have an I.U.D. The right ovary is non-visualized. The left ovary is non-visualized There is no fluid in the cul-de-sac. The pre void volume of the bladder was 176 ml. Polycystic ovary disease: No. US/Pelvic (Non ) IMPRESSION: Fluid-filled endometrium. There are 2 subcentimeter uterine fibroids. Electronically Signed: Win Vizcaino MD at 8:40 EST Tel [phone], Service support ,
--- NOTE | 2018-02-21 16:50 | US_ITS ---
STUDY: ULTRASOUND OF THE FEMALE PELVIS - COMPLETE REASON FOR EXAM: Female, 67 years old. History of low bloating and occasional pain. LMP: The patient is postmenopausal. TECHNIQUE: Transabdominal and Transvaginal TECHNICAL QUALITY: Adequate. COMPARISON: None. FINDINGS: The uterus is retroverted and is in a midline position. The uterus measures 6 cm x 4.6 cm by 3.1 cm. Normal uterine cervix. The endometrium measures 1.5 mm in thickness, and is fluid distended. There is no demonstrated endometrial mass. There are 2 subcentimeter uterine fibroids. I.U.D. - The patient does not have an I.U.D. The right ovary is non-visualized. The left ovary is non-visualized There is no fluid in the cul-de-sac. The pre void volume of the bladder was 176 ml. Polycystic ovary disease: No. US/Transvaginal Non- IMPRESSION: Fluid-filled endometrium. There are 2 subcentimeter uterine fibroids. Electronically Signed: Win Vizcaino MD at 8:40 EST Tel [phone], Service support ,
--- OUTSIDE RECORDS SUMMARY | 2018-05-26 09:15 | XMS RPT_ITS ---
:1950 Author Organization [facility] Support Name Relationship Address Phone LUZMARIA YAO Unavailable [address] + [place] [address] LAN YAO Unavailable [address] + [place] [address] [facility] Unavailable [address] + [place] [address] LUZMARIA YAO Unavailable [address] + [place] [address] LAN YAO Unavailable [address] + [place] [address] [facility] Unavailable [address] + [place] [address] LUZMARIA YAO Unavailable [address] + [place] [address] LAN YAO Unavailable [address] + [place] [address] [facility] Unavailable [address] + [place] [address] LUZMARIA YAO Unavailable [address] + [place] [address] LAN YAO Unavailable [address] + [place] [address] [facility] Unavailable [address] + [place] [address] LUZMARIA YAO Unavailable [address] + [place] [address] LAN YAO Unavailable [address] + [place] [address] [facility] Unavailable [address] + [place] [address] JESSE YAOTER Unavailable [address] + [place] [address] LAN YAO Unavailable [address] + [place] [address] [facility] Unavailable [address] + [place] [address] JESSE YAOTER Unavailable [address] + [place] [address] LAN YAO Unavailable [address] + [place] [address] [facility] Unavailable [address] + [place] [address] LUZMARIA YAO Unavailable [address] + [place] [address] LAN YAO Unavailable [address] + [place] [address] [facility] Unavailable [address] + [place] [address] LUZMARIA YAO Unavailable [address] + [place] [address] MAXIMILIAN LAN Unavailable [address] + [place] [address] [facility] Unavailable [address] + [place] [address] JESSE YAOTER Unavailable [address] + [place] [address] MAXIMILIANVANIGUEVARA Unavailable [address] + [place] [address] [facility] Unavailable [address] + [place] [address] JESSE YAOTER Unavailable [address] + [place] [address] LAN YAO Unavailable [address] + [place] [address] [facility] Unavailable [address] + [place] [address] MAXIMILIAN, LUZMARIA Unavailable [address] + [place] [address] LAN YAO Unavailable [address] + [place] [address] [facility] Unavailable [address] + [place] [address] LUZMARIA YAO Unavailable [address] + [place] [address] LAN YAO Unavailable [address] + [place] [address] [facility] Unavailable [address] + [place] [address] LUZMARIA YAO Unavailable [address] + [place] [address] LAN YAO Unavailable [address] + [place] [address] [facility] Unavailable [address] + [place] [address] LUZMARIA YAO Unavailable [address] + [place] [address] LAN YAO Unavailable [address] + [place] [address] [facility] Unavailable [address] + [place] [address] LUZMARIA YAO Unavailable [address] + [place] [address] LAN YAO Unavailable [address] + [place] [address] [facility] Unavailable [address] + [place] [address] LUZMARIA YAO Unavailable [address] [phone] [place] [address] LAN YAO Unavailable [address] + [place] [address] [facility] Unavailable [address] + [place] [address] LUZMARIA YAO Unavailable [address] [phone] [place] [address] MAXIMILIAN, LUKE Unavailable [address] + [place] [address] [facility] Unavailable [address] + [place] [address] JESSE YAOTER Unavailable [address] [phone] [place] [address] VANI YAOGUEVARA Unavailable [address] + [place] [address] [facility] Unavailable [address] + [place] [address] JESSE YAOTER Unavailable [address] [phone] [place] [address] VANI YAOGUEVARA Unavailable [address] + [place] [address] [facility] Unavailable [address] + [place] [address] MAXIMILIANJESSELUZMARIA Unavailable [address] [phone] [place] [address] MAXIMILIAN LAN Unavailable [address] + [place] [address] [facility] Unavailable [address] + [place] [address] LUZMARIA YAO Unavailable [address] [phone] [place] [address] VANI YAOGUEVARA Unavailable [address] + [place] [address] [facility] Unavailable [address] + [place] [address] JESSE YAOTER Unavailable [address] [phone] [place] [address] LAN YAO Unavailable [address] + [place] [address] [facility] Unavailable [address] + [place] [address] JESSE YAOTER Unavailable [address] [phone] [place] [address] LAN YAO Unavailable [address] + [place] [address] [facility] Unavailable [address] + [place] [address] LUZMARIA YAO Unavailable [address] [phone] [place] [address] LAN YAO Unavailable [address] + [place] [address] [facility] Unavailable [address] + [place] [address] Care Team Providers Name Role Phone Penny [...] Attending Unavailable Allegra, Shila Referring Unavailable Allegra, Hsila Primary Care Unavailable Allegra, Shila Attending Unavailable Allegra, Shila Primary Care Unavailable Allegra, Shila Attending Unavailable Allegra, Shila Primary Care Unavailable Allegra, Shila Consulting Unavailable [place] Attending Unavailable [place] Referring Unavailable Allegra, Shial Primary Care Unavailable Allegra, Shila Attending Unavailable [...] STATUS SOURCE 03/16/2018 Unknown R14.0 - Abdominal [place], Molly Active [place] distension Community (gaseous) / Hospital R14.0(ICD-10) Repository 03/09/2018 Unknown M81.0 - Age-related MonaJacki Active [place] osteoporosis Community without current Hospital pathological Repository fracture / M81.0(ICD-10) 10/20/2017 Unknown Z12.31 - Encounter MonaJacki murdock Active [place] for screening Community mammogram for Hospital malignant neoplasm Repository of breast / Z12.31(ICD-10) 10/19/2017 Unknown R09.89 - Other Penny Shukla Active [place] specified symptoms Community and signs involving Hospital the circulatory and Repository respiratory systems / R09.89(ICD-10) 10/15/2017 Unknown R19.7 - Diarrhea, Penny Shukla Active [place] unspecified / Community R19.7(ICD-10) Hospital Repository 07/19/2017 Unknown G47.33 - Kearney, Active [place] Obstructive sleep [facility] apnea (adult) Hospital (pediatric) / Repository G47.33(ICD-10) 07/19/2017 Unknown E66.3 - Overweight [place]earney, Active [place] / E66.3(ICD-10) [facility] Repository 05/07/2017 Unknown R06.89 - Other Allegra, Active [place] abnormalities of [facility] breathing / Hospital R06.89(ICD-10) Repository PROCEDURES PROCEDURES No Procedure Records FoundRESULTS RESULTS PRESS LOADER OFFICE VISIT Observed: 03/17/2018 Status: F Source: [place] REPORT 10:43 AM [facility] HOSPITAL REPOSITORY [facility] [place] [address] [place] [address] OFFICE VISIT Date of Service: 10/20/17 MR#: [id number] Acct: [id number] Name: TORIBIO YAO Rep #: [id number] : 1950 Provider: SHANE Dunn Age/Sex: 67/F Location: [facility] Status: Signed with Addenda ADDENDUM by SHANE [...] 1 year, prn with problems Jacki Dunn ESL TUTOR Orders Orders: Medications New: 03/17/18 1043 <Electronically signed by Jacki WILKERSON> Date Jacki Dunn cc: * Signed Intake Vital Signs10/20/17 Height 5 ft 8 in 10/20/17 Weight: 185 lb 2 oz 10/20/17 Body Mass Index (BMI) 28.1 10/20/17 Blood Pressure 134/82 Intake Visit Reasons: ANNUAL Manager Branch Required: No Is patient in pain?: No [...] 60 mg/mL subcutaneous syringe 60 mg SC [id number] 07/19/17 [History Confirmed 10/20/17] fluoxetine 10 mg [...] menopausal: Yes Patient : No : No [facility] Medical History Sinusitis, acute (Acute) Abdominal bloating [...] household members: spouse housing: house 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 DatName GA/WeeksOutcome Route [facility] LgAnesthesDel LocaProviderFOB e ht en tn Unknown [...] alert, oriented to person, oriented to place HENFL Head: normal to inspection Neck Neck: normal [...] RTO 1 year, prn with problems Jacki [place] ESL TUTOR Orders Orders: Medications New: Coding Level of Care Code Off vis,est,prev 65+yrs Diagnoses Encounter for gynecological examination without abnormal finding Z01.419 Gynecological examination findings: abnormal findings ABSENT Age-related osteoporosis without current pathological fracture M81.0 Osteoporosis type: age-related Presence of current pathological fracture: without current pathological fracture 10/20/17 1221 <Electronically signed by Jacki MILLANC> Date Jacki Dunn NP-C Cosigner Signature: Date (if applicable) CC: PRESS LOADER OFFICE VISIT Observed: 03/16/2018 Status: F Source: [place] REPORT 4:14 PM [facility] REPOSITORY [facility] Women's [address] [place] [address] OFFICE VISIT Date of Service: 03/16/18 MR#: [id number] Acct: [id number] Name: MAXIMILIANTORIBIO Rep #: [id number] : 1950 Provider: SHANE Dunn Age/Sex: 67/F [place] [facility] [place]: Signed Intake Vital Signs03/16/18 Height 5 ft 8 in 03/16/18 Weight: 189 lb 8 oz 03/16/18 Body Mass Index (BMI) 28.8 03/16/18 Blood Pressure 166/106 H Intake Visit Reasons: REVIEW U/S RESULTS Manager Branch Required: No Is patient in pain?: No [...] 60 mg/mL subcutaneous syringe 60 mg SC [id number] 07/19/17 [History Confirmed 03/16/18] fluoxetine 10 mg capsule 20 mg PO DAILY cap 07/19/17 [History Confirmed 03/16/18] conjugated estrogens 0.625 mg/gram vaginal cream See Rx Instructions TOPICAL .COMPLEX 10/20/17 [History Confirmed 03/16/18] eletriptan 20 mg tablet 20 mg PO ONCE 10/20/17 [History Confirmed 03/16/18] [facility] Medical History Sinusitis, acute (Acute) Abdominal bloating [...] household members: spouse housing: house 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 DatName GA/WeeksOutcome Route [facility] LgAnesthesDel LocaProviderFOB e ht en ia [...] Off vis,est,level 3 Diagnoses Bloating R14.0 03/16/18 3154 <Electronically signed by Jacki WILKERSON> Date Jacki WILKERSON Cosigner Signature: Date (if applicable) CC: DEXA BONE DENSITY Observed: 03/09/2018 Status: F Source: [place] STUDY 8:33 AM [facility] REPOSITORY [facility] Imaging Services [facility] [place] [address] Dexa Bone Density Study MR#: [id number] Acct: [id number] Name: TORIBIO YAO Rep #: [id number] : 1950 F 67 From: Win Vizcaino MD PCP: Shila Dinh DO Status: REG CLI Study: Dexa Bone Density Study Date of Exam: 03/09/18 Exam# [id number] Ordering Dr: Jacki Dunn HOT BLASTER-[place] STUDY: DUAL ENERGY X-RAY ABSORPTIOMETRY / DXA [...] Win Vizcaino MD at 15:30 EST Tel [phone], Service support , CC: SHANE Dunn; Shila Dinh DO Double Spindle Shaper Operator: Signed TRANSVAGINAL Observed: 02/21/2018 Status: F Source: [place] NON- 4:50 PM [facility] REPOSITORY [facility] Imaging Services [address] [place] [address] Transvaginal Non- MR#: [id number] Acct: [id number] Name: TORIBIO YAO Estuardo Rep #: [id number] : 1950 F 67 From: Win Vizcaino MD PCP: Shila Dinh DO Status: REG CLI Study: Transvaginal Non- Date of Exam: 02/21/18 Exam# [id number] Ordering Dr: Penny Shukla HOT BLASTERMacy STUDY: ULTRASOUND OF THE FEMALE PELVIS - [...] Win Vizcaino MD at 8:40 EST Tel [phone], Service support , CC: Penny Shukla NP; Shila Dinh DO Double Spindle Shaper Operator: Signed PELVIC (NON ) Observed: 02/21/2018 Status: F Source: [place] 4:36 PM [facility] REPOSITORY [facility] Imaging Services [address] [place] [address] Pelvic (Non ) MR#: [id number] Acct: [id number] Name: TORIBIO YAO Rep #: [id number] : 1950 F 67 From: Win Vizcaino MD PCP: Shila Dinh DO Status: REG CLI Study: Pelvic (Non ) Date of Exam: 02/21/18 Exam# [id number] Ordering Dr: Penny Shukla STUDY: ULTRASOUND OF [...] Win Vizcaino MD at 8:40 EST Tel [phone], Service support , CC: Penny Shukla NP; Shila Dinh DO Double Spindle Shaper Operator: Signed ABDOMEN COMPLETE Observed: 02/18/2018 Status: F Source: [place] 7:57 AM [facility] REPOSITORY [facility] Imaging Services [address] [place] [address] Abdomen Complete MR#: [id number] Acct: [id number] Name: TORIBIO YAO Rep #: [id number] : 1950 F 67 From: Jovani Polo MD PCP: Shila Dinh DO Status: REG CLI Study: Abdomen Complete Date of Exam: 02/18/18 Exam# [id number] Ordering Dr: Penny Shukla STUDY: ABDOMINAL ULTRASOUND [...] CC: Penny Shukla NP; Shila Dinh DO Double Spindle Shaper Operator: Signed ABD INC DECUB Observed: 02/11/2018 Status: F Source: [place] AND/OR ERECT 2:27 PM [facility] HOSPITAL REPOSITORY [facility] [place] [address] Abd Inc Decub and/or Erect MR#: [id number] Acct: [id number] Name: TORIBIO YAO Rep #: [id number] : 1950 F 67 From: Juancarlos Polo MD PCP: Shila Dinh DO Status: REG CLI Study: Abd Inc Decub and/or Erect Date of Exam: 02/11/18 Exam# [id number] Ordering Dr: Penny Shukla HOT BLASTER-C STUDY: X-RAY - ABDOMEN/PELVIS REASON FOR EXAM: [...] CC: Penny Shukla NP; Shila Dinh DO Double Spindle Shaper Operator: Signed HEMOGLOBIN A1C Collected: 11/01/2017 Status: F Source: [place] 2:41 PM [facility] REPOSITORY TYPE CODE TESTS RESULT OUT OF RANGE REFERENCE UNITS LAB L501.9985 4.2-6.3 % Normal HGB A1C 5.4 Performed By: #### L501.9985 #### [facility] [address] [place], [address] AORTA Observed: 10/19/2017 Status: F Source: [place] 7:59 AM [facility] REPOSITORY [facility] Imaging Services [address] [place] [address] Aorta MR#: [id number] Acct: [id number] Name: TORIBIO YAO Rep #: [id number] : 1950 F 67 From: Win Vizcaino MD PCP: Shila Dinh DO Status: REG CLI Study: Aorta Date of Exam: 10/19/17 Exam# [id number] Ordering Dr: Penny Shukla PROCEDURES: ULTRASOUND AORTA [...] Win Vizcaino MD at 9:34 EDT Tel [phone], Service support , CC: Penny Shukla HOT BLASTER; Shila Dinh DO Double Spindle Shaper Operator: Signed PULMONARY VISIT REPORT Observed: 10/18/2017 Status: F Source: [place] 11:41 AM [facility] REPOSITORY [facility] [address] [place] [address] OFFICE VISIT Date of Service: 10/18/17 MR#: [id number] Acct: [id number] Name: TORIBIO YAO Rep #: [id number] : 1950 Provider: Donald Lane MD Age/Sex: 67/F Location: [facility] Status: Signed Assessment AND Plan Problems 1. 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 [address] [place], [place], [id number] Observed: 10/15/2017 Status: F Source: [place] CDIFF (MOLECULAR) 4:20 PM [facility] REPOSITORY Cdiff-Molecular Normal Reference Range = Negative C. Diff DNA Negative- No toxigenic C. Diff DNA Detected NAAT METHOD Testing was performed using nucleic acid amplification Performed By: #### M100.0605, M100.6796 #### [facility] [address] [place], [place], [id number] STOOL Observed: 10/06/2017 Status: F Source: [place] LACTOFERRIN/WBC 6:45 PM [facility] REPOSITORY Reason for Exam: Diarrhea Stool Lacto/WBC Normal Reference Range = Negative Fecal WBC Lactoferrin Negative: No Fecal WBC Lactoferrin present Performed By: #### M100.0605, M100.637 #### [facility] [address] [place], [place], [address] Observed: 10/06/2017 Status: F Source: [place] ENTERIC PATHOGEN 6:45 PM [facility] PANEL STOOL REPOSITORY Reason for Exam: Diarrhea [...] Detected Performed By: #### M100.0605, M100.637 #### [facility] [address] [place], [address] OFFICE VISIT REPORT Observed: 10/05/2017 Status: F Source: [place] 6:40 PM [facility] REPOSITORY [address] 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 [address] [place], [place], [id number] URINALYSIS, EMPLOYEE Collected: 08/23/2017 Status: F Source: [place] 8:04 AM [facility] REPOSITORY TYPE CODE TESTS RESULT OUT OF [...] 25 ESTERASE Performed By: #### L400.0100 #### [facility] [address] [place], [address] EMPLOYEE PROFILE Collected: 08/23/2017 Status: F Source: [place] 8:04 AM [facility] REPOSITORY TYPE CODE TESTS RESULT OUT OF [...] LDH 175 Performed By: #### L500.2900 #### [facility] [address] [place], [address] NICOTINE URINE DRUG Collected: 08/23/2017 Status: F Source: [place] SCREEN 8:04 AM [facility] REPOSITORY TYPE CODE TESTS RESULT OUT OF [...] of Nicotine. Performed By: #### L505.6240 #### [facility] [address] [place], [address] PULMONARY VISIT REPORT Observed: 08/20/2017 Status: F Source: [place] 2:01 PM [facility] REPOSITORY [facility] [place] [address] [place], [place] [address] OFFICE VISIT Date of Service: 08/20/17 MR#: [id number] Acct: [id number] Name: TORIBIO YAO Rep #: [id number] : 1950 Provider: Amy Kearney Age/Sex: 67/F [facility] Status: Signed Assessment AND Plan 1. FREDY [...] daily consistently. She has not tried any panm-plr-pmebmse medications for her sleep. 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 [place] [address] OFFICE VISIT Date of Service: 07/19/17 MR#: [id number] Acct: [id number] Name: TORIBIO YAO Rep #: [id number] : 1950 Provider: Amy Kearney Age/Sex: 66/F Location: [facility] Status: Signed Assessment AND Plan 1. FREDY (obstructive sleep apnea) G47.33 Status Acute Plan New. Adjust AutoPap from 7-14 cm of water down to 5-12 cm water. Encouraged her to discuss the burning sensation she rinses with the use of her nasal pillows with the [employer], consider alternative masks. Follow-up in 1 [...] was only from set up in the [facility] office. Currently, she feels that it is [...] lb Intake Visit Reasons: FREDY DME Vendor: [employer] Accompanied by: Self Allergies No Known Allergies [...] 60 mg/mL subcutaneous syringe 60 mg SC [id number] 07/19/17 [History Confirmed 07/19/17] eletriptan 20 mg tablet 20 mg PO ONCE PRN 07/19/17 [History Confirmed 07/19/17] fluoxetine 10 mg capsule 20 mg PO DAILY cap 07/19/17 [History Confirmed 07/19/17] [facility] Medical History Sinusitis, acute (Acute) Abdominal bloating [...] W/DIFF, AUTOMATED Collected: 06/29/2017 Status: F Source: [place] 8:29 AM [facility] REPOSITORY TYPE CODE TESTS RESULT OUT OF [...] Lymph 1.26 Performed By: #### L100.0100 #### [facility] [address] [place], [place], [address] HEMOGLOBIN A1C Collected: 06/29/2017 Status: F Source: [place] 8:29 AM [facility] REPOSITORY TYPE CODE TESTS RESULT OUT OF RANGE REFERENCE UNITS LAB L501.9985 4.2-6.3 % Normal HGB A1C 5.2 Performed By: #### L501.9985 #### [facility] [address] [facility] [place], [address] COMPREHENSIVE METABOLIC Collected: 06/29/2017 Status: F Source: [facility] 8:29 AM [facility] REPOSITORY TYPE CODE TESTS RESULT OUT OF [...] By: #### L500.4050, L501.9520, L503.6030, L503.6550 #### [facility] [address] [facility] [place], [place], [id number] THYROID STIM HORMONE Collected: 06/29/2017 Status: F Source: [place] (TSH) 8:29 AM [facility] REPOSITORY TYPE CODE TESTS RESULT OUT OF RANGE REFERENCE UNITS LAB L501.9520 0.358-3.74 uIU/mL Normal TSH 1.61 Performed By: #### L500.4050, L501.9520, L503.6030, L503.6550 #### [facility] [address] [facility] [place], [place], [id number] IRON+IRON BINDING Collected: 06/29/2017 Status: F Source: [place] CAPACITY 8:29 AM [facility] REPOSITORY TYPE CODE TESTS RESULT OUT OF RANGE REFERENCE UNITS LAB L503.6075 250-450 ug/dL TIBC Normal 429 LAB L503.6150 50-170 ug/dL IRON Normal 73 LAB L503.6250 15.0-55.0 % IRON Normal SATURATION 17.0 Performed By: #### L500.4050, L501.9520, L503.6030, L503.6550 #### [facility] [address] [place], [address] FERRITIN Collected: 06/29/2017 Status: F Source: [place] 8:29 AM [facility] REPOSITORY TYPE CODE TESTS RESULT OUT OF RANGE REFERENCE UNITS LAB L503.6550 8-252 ng/mL Normal FERRITIN 18 Performed By: #### L500.4050, L501.9520, L503.6030, L503.6550 #### [facility] [place], [address] MICROALB:CREAT Collected: 06/29/2017 Status: F Source: [place] [facility] 8:29 AM [facility] REPOSITORY TYPE CODE TESTS RESULT OUT OF RANGE REFERENCE UNITS LAB L501.1200 NO RANGE EST. mg/dL Normal UR CREAT 30.80 LAB L502.0500 NO RANGE EST. mg/L Normal 5.3 MICROALBUMIN ,UR LAB L502.0600 <30 mg/g CRE mg/g CRE Normal 17.3 MALB:CREAT Performed By: #### L502.0250 #### [facility] Laboratory [facility] [place], [address] SCREENING MAMM (CAD), Observed: 06/22/2017 Status: F Source: GENARO BILAT 4:37 PM [facility] REPOSITORY [facility] Imaging Services [address] [place] [address] SCREENING MAMM (CAD), BILAT MR#: [id number] Acct: [id number] Name: TORIBIO YAO Rep #: [id number] : 1950 F 66 From: Win Vizcaino MD PCP: Shila iDnh DO Status: REG CLI Study: SCREENING MAMM (CAD), BILAT Date of Exam: 06/22/17 Exam# [id number] Ordering Dr: Jacki Dunn HOT BLASTER-C MAMMOGRAPHY - BILATERAL SCREENING REASON FOR EXAM: [...] delay biopsy of a clinically suspicious abnormality. [id number] Electronically Signed: Win Vizcaino MD at 8:23 EDT Tel [phone], Service support , CC: SHANE Dunn; Shila Dinh DO Double Spindle Shaper Operator: Signed ALLERGIES ALLERGIES DATE TYPE / CODE NAME / CODE REACTION SEVERITY SOURCE 03/16/2018 Drug No Known Unknown [facility] Allergy/4160 Allergies/F00 Hospital 62603(SNOMED 1754073(RXNOR Repository CT) M) ENCOUNTERS ENCOUNTERS ADMIT/DISCHARGE ACCOUNT ADMITTING ENCOUNTER LOCATION SOURCE NUMBER CLASS 03/16/2018/ [id number] Ambulatory BMSBuilding:B [place] 9 5 [place] Repository 03/09/2018 [id number] Ambulatory BMSBuilding:B [place] 3 [facility] Repository 03/09/2018 [id number] Ambulatory [place] [facility] 1 [facility] Hospital ing:OPBD Repository 02/21/2018 [id number] Ambulatory [place] 0 [facility] Hospital ing:US Repository 02/18/2018 [id number] Ambulatory [place] 2 [facility] Hospital ing:US Repository 02/11/2018 [id number] Ambulatory [place] 3 [facility] Hospital ing:HPRAD Repository 11/15/2017 [id number] Ambulatory [place] 0 [facility] Hospital ing:MEDOUTP Repository 11/03/2017 [id number] Ambulatory [place] [facility] 6 [facility] Hospital ing:MEDOUTP Repository 11/01/2017 [id number] Ambulatory [place] [facility] 7 [facility] Hospital ing:PAVLAB Repository 10/20/2017/ [id number] Ambulatory BMSBuilding:B [place] 8 9 [facility] Repository 10/20/2017 [id number] Ambulatory [place] 2 [facility] Hospital ing:LAB.FUTUR Repository E 10/19/2017 [id number] Ambulatory [place] 9 [facility] Hospital ing:US Repository 10/18/2017/ [id number] Ambulatory BMSBuilding:B [place] 8 4 [facility] Hospital Repository 10/15/2017 [id number] Ambulatory [place] 6 [facility] Hospital ing:LAB.FUTUR Repository E 10/07/2017 [id number] Ambulatory [place] 6 [facility] Hospital ing:PAVLAB Repository 10/05/2017/ [id number] Ambulatory BMSBuilding:B [place] 8 6 MS.NOW [facility] Repository 08/23/2017 [id number] Ambulatory [place] 5 [facility] ing:EMPH Repository 08/20/2017/ [id number] Ambulatory BMSBuilding:B [place] 8 3 [place].W [facility] Repository 07/19/2017/ [id number] Ambulatory BMSBuilding:B [place] 8 3 [facility] Hospital Repository 06/29/2017 [id number] Ambulatory [place] 6 [facility] ing:LAB Repository 06/22/2017 [id number] Ambulatory [place] 1 [facility] ing:OPBI Repository 06/18/2017 [id number] Ambulatory Gen[place] 1 [facility] Hospital ing:SL Repository 05/28/2017 [id number] Ambulatory [place] 6 [facility] ing:SL Repository 05/11/2017 [id number] Ambulatory [place] 2 [facility] ing:MEDOUTP Repository 05/06/2017 [id number] Ambulatory [place] [facility] 7 [facility] Hospital ing:SL Repository PAYERS PAYERS ENCOUNTER GUARANTOR PAYER SUBSCRIBER SOURCE 03/16/2018 TORIBIO A Primary Insurance:[facility] TORIBIO Estuardo [id number] S [facility]: [facility] hospital[facility] 2549[place]34-[place]: Repository [address]Ung: 330 [id number] [phone] () Date:8572-26-91YT [address] [address]YAUMCAZQH, [place] [address]EB: CHECK WEBSITE 03/16/2018 Secondary NOT GIVENUNK [facility] Insurance:SELF PAY [facility] Number: Effective Repository Date:2018-03-16 03/09/2018 TORIBIO A Primary Insurance:[facility] TORIBIOMik [id number] S [facility]OV[address] HEALTHDOB: [facility] [id number] [place] Number: Repository [address]Wtv: 330 [id number] [phone] () Date:4856-15-75BE [address] [address]PNMCMWAXC, [place] [address]NU: CHECK WEBSITE 03/09/2018 Secondary NOT GIVENUNK [place] Insurance:SELF PAY [facility]: Effective Repository Date:2018-03-09 03/09/2018 TORIBIO A Primary Insurance:[facility] TORIBIO Marte [facility] [id number] S [facility] J[place]NSONDOB: [facility] [place] [facility] 9684-23-31SRVPal[place] Number: Repository [address]Oug: 330 [id number] [phone] () Date:8342-12-43MA [address] [address]HZEVAYXDF, [place] [address]FE: CHECK WEBSITE 03/09/2018 Secondary NOT GIVENUNK [place] Insurance:SELF PAY [facility] Hospital Number: Effective Repository Date:2017-10-20 02/21/2018 TORIBIO A Primary Insurance:[facility] TORIBIO Marte [place] [id number] [address] [facility] JOHNSONDOB: [facility] [place] [facility] 8392-41-32TUBPalm [place] Number: Repository [address]Wgh: 330 [id number] [phone] () Date:9498-11-60MM [address] [address]IUWCHDWEH, [place] [address]WU: CHECK WEBSITE 02/21/2018 Secondary NOT GIVENUNK [place] Insurance:SELF PAY [facility] Number: Effective Repository Date:2018-02-14 02/18/2018 TORIBIO A Primary Insurance:[facility] TORIBIO Marte [place] [id number] [address] [facility] JOHNSONDOB: [facility] [place] [facility] 1150-19-72WLCPalm [place], [place] Number: Repository [address]Ery: 330 [id number] [phone] () Date:1789-06-94CX [address] [address]MDSHPLQTF, [place] [address]JD: CHECK WEBSITE 02/18/2018 Secondary NOT GIVENUNK [place] Insurance:SELF PAY [facility] Number: Effective Repository Date:2018-02-14 02/11/2018 TORIBIO A Primary Insurance:[facility] TORIBIO Marte [place] [id number] [address] [facility] JOHNSONDOB: [facility] [place] [facility]Va [facility] 5454-36-77SKGPalm [place], [place] Number: Repository [address]Say: 330 [id number] [phone] (HP) Date:7330-08-91AD [address] [address]GLUKEQWLR, [place] [address]YX: CHECK WEBSITE 02/11/2018 Secondary NOT GIVENUNK [place] Insurance:SELF PAY [facility] Number: Effective Repository Date:2018-02-11 11/15/2017 TORIBIO A Primary Insurance:[facility] TORIBIO A [place] [id number] S [facility] JOHNSONDOB: Community [place] SERVICESPolicy [id number] [place], [place] Number: Repository [address]Gth: 330 [id number] [phone] () Date:0677-45-58ST [address] [address]RPUKOBLPL, [place] [address]QT: CHECK WEBSITE 11/15/2017 Secondary NOT GIVENUNK [place] Insurance:SELF PAY [facility] Number: Effective Repository Date:2017-11-03 11/03/2017 TORIBIO A Primary Insurance:[facility] TORIBIO A [place] [id number] S [facility] JOHNSONDOB: Community [place] SERVICESPolicy [id number] [place], [place] Number: Repository [address]Kcn: 330 [id number] [phone] () Date:1672-11-65EO [address] [address]RONYUTWOV, [place] [address]MB: CHECK WEBSITE 11/03/2017 Secondary NOT GIVENUNK [place] Insurance:SELF PAY [facility] Number: Effective Repository Date:2017-11-03 11/01/2017 TORIBIO A Primary Insurance:[facility] TORIBIO A [place] [id number] S [facility] JOHNSONDOB: Community [place] SERVICESB[facility] Cardon Children[facility] Medical Centeric 1845-46-86NSLPalm Beach [place], [place] Number: Repository [address]Ibv: 330 [id number] [phone] () Date:9525-32-23VQ [address] [address]KBHWPERMS, [place] [address]UW: CHECK WEBSITE 11/01/2017 Secondary NOT GIVENUNK [place] Insurance:SELF PAY [facility] Number: Effective Repository Date:2017-11-01 10/20/2017 TORIBIO A Primary Insurance:[facility] TORIBIO Floresoster [id number] S [facility] JOHNSONDOB: Community [facility] 0420-78-27ADHPalm Beach [place], [place] Number: Repository [address]Dlt: 330 [id number] [phone] () Date:9452-63-50OO [address] [address]XVBKXEPEH, [place] [address]NP: CHECK WEBSITE 10/20/2017 Secondary NOT GIVENUNK [place] Insurance:SELF PAY [facility] Number: Effective Repository Date:2017-10-20 10/20/2017 TORIBIO A Primary Insurance:[facility] TORIBIO Floresoster [id number] S [facility] JOHNSONDOB: [facility] SERVICESVa [facility] 3656-64-02XZLPalm Beach [place], [place] Number: Repository [address]Rub: 330 [id number] [phone] () Date:0145-16-06MH [address] [address]ZLQMKDLRR, [place] [address]RP: CHECK WEBSITE 10/20/2017 Secondary NOT GIVENUNK [place] Insurance:SELF PAY [facility] Number: Effective Repository Date:2017-10-20 10/19/2017 TORIBIO A Primary Insurance:[facility] TORIBIO Floresoster [id number] [address] [facility] JOHNSONDOB: [facility] [place] SERVICESVa [facility] 7504-71-96OOGPalm Beach [place], [place] Number: Repository [address]Nqz: 330 [id number] [phone] () Date:1644-30-97OO [address] [address]KNIHXJVMT, [place] [address]LS: CHECK WEBSITE 10/19/2017 Secondary NOT GIVENUNK [place] Insurance:SELF PAY [facility] Number: Effective Repository Date:2017-10-15 10/18/2017 TORIBIO A Primary Insurance:[facility] TORIBIO Floresoster [id number] [address] [facility] JOHNSONDOB: [facility] [place] [facility]Va [facility] 1482-22-27OEUPalm Beach [place], [place] Number: Repository [address]Hnt: 330 [id number] [phone] (HP) Date:8912-30-77CR [address] [address]XDWWOIRFW, [place] [address]KE: CHECK WEBSITE 10/18/2017 Secondary NOT GIVENUNK [place] Insurance:SELF PAY [facility] Number: Effective Repository Date:2017-10-08 10/15/2017 TORIBIO A Primary Insurance:[facility] TORIBIO Marte [place] [id number] S [facility] JOHNSONDOB: Community [place] [facility] 5082-48-94BVEPalm Beach [place], [place] Number: Repository [address]Yss: 330 [id number] [phone] () Date:0782-32-07HX [address] [address]YGCYYKSMI, [place] [address]ED: CHECK WEBSITE 10/15/2017 Secondary NOT GIVENUNK [place] Insurance:SELF PAY [facility] Number: Effective Repository Date:2017-10-15 10/07/2017 TORIBIO A Primary Insurance:[facility] TORIBIO Marte [place] [id number] S [facility] NORTHDOB: [facility]Va [facility] 2092-84-90WSWPalm [place], [place] Number: Repository [address]Mfj: 330 [id number] [phone] () Date:7044-25-08KE [address] [address]DGRQWCGKH, [place] [address]EO: CHECK WEBSITE 10/07/2017 Secondary NOT GIVENUNK [place] Insurance:SELF PAY [facility] Number: Effective Repository Date:2017-10-07 10/05/2017 TORIBIO A Primary Insurance:[facility] TORIBIO Marte [place] [id number] S [facility] NORTHDOB: [facility] SERVICESVa [facility] 0663-11-44XOOPalm Beach [place], [place] Number: Repository [address]Kcz: 330 [id number] [phone] () Date:8128-35-37TJ [address] [address]YQRORGWUL, [place] [address]KF: CHECK WEBSITE 10/05/2017 Secondary NOT GIVENUNK [place] Insurance:SELF PAY [facility] Number: Effective Repository Date:2017-10-05 08/23/2017 TORIBIO A Primary NOT GIVENUNK [place] [id number] S Insurance:SELF PAY [place]: [place] Repository [address]Fgg: Date:2017-08-23 ~330 -3 () 08/20/2017 TORIBIO A Primary Insurance:[facility] TORIBIO Marte [place] [id number] S [facility] JOHNSONDOB: Community [place] SERVICESPoly 2371-70-88NNAPalm [place], [place] Number: Repository [address]Fwk: [id number] [phone] Date:0097-31-83NS [address] () [address]LCWYVBUNU, [place] [address]RS: CHECK WEBSITE 08/20/2017 Secondary NOT GIVENUNK [place] Insurance:SELF PAY [facility] Number: Effective Repository Date:2017-08-18 07/19/2017 TORIBIO A Primary Insurance:[facility] TORIBIO Marte [place] [id number] S [facility] JOHNSONDOB: [facility]Va [facility] 0561-84-81MMWPalm Beach [place], [place] Number: Repository [address]Xgb: [id number] [phone] Date:2913-17-28GO [address] () [address]HUIOFHFAS, [place] [address]WG: CHECK WEBSITE 07/19/2017 Secondary NOT GIVENUNK [place] Insurance:SELF PAY [facility] Number: Effective Repository Date:2017-07-19 06/29/2017 TORIBIO A Primary Insurance:[facility] TORIBIO Marte [place] [id number] [address] [facility] JOHNSONDOB: [facility]Va [facility] 4353-46-95SNNPalm [place], [place] Number: Repository [address]Ufr: [id number] [phone] Date:4577-84-93AU [address] () [address]482YWMSYJVVQ, [place] [address]NK: CHECK WEBSITE 06/29/2017 Secondary NOT GIVENUNK [place] Insurance:SELF PAY [facility] Number: Effective Repository Date:2017-06-29 06/22/2017 TORIBIO A Primary Insurance:[facility] TORIBIO Marte [place] [id number] [address] [facility] JOHNSONDOB: [facility] 3688-59-89FVJPalm Beach [place], [place] Number: Repository [address]Zvp: [id number] [phone] Date:6928-47-34VH [address] (HP) [address]ECEBRQXVA, [place] [address]UE: CHECK WEBSITE 06/22/2017 Secondary NOT GIVENUNK [place] Insurance:SELF PAY [facility] Number: Effective Repository Date:2017-05-27 06/18/2017 TORIBIO A Primary Insurance:[facility] TORIBIO A [place] [id number] [address] [facility] JOHNSONDOB: Community [place]Va [facility] 3425-10-89AQDPalm Beach [place], [place] Number: Repository [address]Ntj: [id number] [phone] Date:5257-40-76EU [address] () [address]292LJJHSJAZX, [place] [address]HN: CHECK WEBSITE 06/18/2017 Secondary NOT GIVENUNK [place] Insurance:SELF PAY [facility] Number: Effective Repository Date:2017-05-28 05/28/2017 TORIBIO A Primary Insurance:[facility] TORIBIO A [place] [id number] [address] [facility] JOHNSONDOB: [facility]Va [facility] 8856-45-78FDRPalm Beach [place], [place] Number: Repository [address]Lse: 330 [id number] [phone] (HP) Date:2705-59-71OQ [address] [address]ZPTCOSERO, [place] [address]YI: CHECK WEBSITE 05/28/2017 Secondary NOT GIVENUNK [place] Insurance:SELF PAY [facility] Number: Effective Repository Date:2017-05-18 05/11/2017 TORIBIO A Primary Insurance:[facility] TORIBIO A [place] [id number] [address] [facility] JOHNSONDOB: [facility] 3848-79-27IHWPalm [place], [place] Number: Repository [address]Yvk: 330 [id number] [phone] (HP) Date:1279-73-87IG [address] [address]ILRNANXXJ, [place] [address]LZ: CHECK WEBSITE 05/11/2017 Secondary NOT GIVENUNK [place] Insurance:SELF PAY [facility] Number: Effective Repository Date:2017-05-11 05/06/2017 TORIBIO Marte Primary Insurance:[facility] TORIBIO [id number] S [facility] JOHNSONDOB: [facility] 6109-33-37JRNPalm [place], [place] Number: Repository [address]Ost: (492) [id number] [phone] () Date:4711-08-02WL [address] [address]IPUBBLWVM, [place] [address]UA: CHECK WEBSITE 05/06/2017 Secondary NOT GIVENUNK [place] Insurance:SELF PAY [facility] Number: Effective Repository Date:2017-04-23
== END ==
PROVIDERS: Family Provider Internal Medicine; PCP Internal Medicine; Referring Provider Nurse Practitioner; Visit Provider Nurse Practitioner
DX: R19.7 Diarrhea, unspecified (principal)
CPT/HCPCS: 76830; 76856

== ENCOUNTER → 2018-03-09 08:31 | Outpatient (CLI) | payer OTHER, SELFPAY ==
[2017-05-28 15:21] VITALS: BMI 26.0
[2017-10-20 09:33] VITALS: BMI 28.1
--- NOTE | 2018-03-09 08:36 | BD_ITS ---
STUDY: DUAL ENERGY X-RAY ABSORPTIOMETRY / DXA REASON FOR EXAM: Female, 67 years old. The patient is postmenopausal. Loss of height. TECHNIQUE: Bone Mineral Density (BMD) measurements of lumbar spine and bilateral hips were obtained. COMPARISON: Comparison is made with prior study dated February 25, 2016. FINDINGS: Lumbar Spine (L1-L4): g/cm2 (0.839) / T-score (-2.8) / Z-score (-1.2) Findings are suggestive of osteoporosis with a high fracture risk. Left Femur Total: g/cm2 (0.827) / T-score (-1.4) / Z-score (-0.2) Left Femoral Neck: g/cm2 (0.800) / T-score (-1.7) / Z-score (-0.2) Right Femur Total: g/cm2 (0.828) / T-score (-1.4) / Z-score (-0.2) Right Femoral Neck: g/cm2 (0.784) / T-score (-1.8) / Z-score (-0.3) The T-Scores on the most recent prior examination were: Lumbar Spine (L1-L4): There has been improvement of bone density since the previous examination. Left Femur Total: which represents an improvement of 5.6%. Right Femur Total: which represents an improvement of 4.8%. BD/Dexa Bone Density Study IMPRESSION: The patient is considered osteoporotic as outlined below according to World [employer] Organization (WHO) criteria with a high fracture risk. There has been improvement of bone density since the previous examination. Reference Information: The T-score is the number of standard deviations above or below the standard which is normal for young adults at their peak bone mineral density. The World Health Organization (WHO) interprets the T-scores as follows: Above -1 Normal bone density Between -1 and -2.5 Osteopenia Equal to / or below -2.5 Osteoporosis As a practical clinical guideline, osteopenia may be graded as follows: Mild -1 through -1.5 Moderate -1.6 through -2.0 Severe -2.1 through -2.4 The Z-score is the number of standard deviations above or below age-matched controls. A Z-score of less than -1.5 would be considered abnormal. References: 1. NIH Osteoporosis and Related Bone Diseases http://www.osteo.org 2. International Society for Clinical Densitometry http://www.iscd.org 3. National Osteoporosis Foundation http://www.nof.org Electronically Signed: Win Vizcaino MD at 15:30 EST Tel [phone], Service support ,
== END ==
PROVIDERS: Family Provider Internal Medicine; PCP Internal Medicine; Visit Provider Nurse Practitioner Women's Health
DX: M81.0 Age-related osteoporosis without current pathological fracture (principal)
CPT/HCPCS: 77080

== ENCOUNTER → 2018-04-29 08:21 | Outpatient (CLI) | payer OTHER, SELFPAY ==
[2017-05-28 15:21] VITALS: BMI 26.0
[2018-03-16 16:14] VITALS: BMI 28.1
--- NOTE | 2018-04-29 08:22 | US_ITS ---
STUDY: ULTRASOUND OF THE FEMALE PELVIS - COMPLETE REASON FOR EXAM: Female, 67 years old. Bloating. Fluid distended endometrium. LMP: Postmenopausal. TECHNIQUE: Transabdominal and Transvaginal TECHNICAL QUALITY: Adequate. COMPARISON: None. FINDINGS: The uterus is anteverted and is in a midline position. The uterus measures 6.4 x 4.4 x 3.1 cm. Normal uterine cervix. The endometrium measures 5 mm in thickness, and is fluid distended. There is a small echogenic structure within the endometrial cavity measuring about 4 mm. It could represent small polyp. Blood clot is possible. There is a small hyperechoic lesion in the fundus of the uterus measuring about 5 mm likely representing small fibroid. I.U.D. - The patient does not have an I.U.D. The right ovary is visualized. The right ovary measures 1.5 x 1.5 x 1.1 cm. There is no right ovarian cyst or ovarian mass. There is no visualized right adnexal mass or complex lesion. There is normal arterial and normal venous vascularity. The left ovary is visualized. The left ovary measures 1.6 x 1.5 x 1.1 cm. There is no left ovarian cyst or ovarian mass. There is no visualized left adnexal mass or complex lesion. There is normal arterial and normal venous vascularity. There is no fluid in the cul-de-sac. The pre void volume of the bladder was 163 ml. Polycystic ovary disease: No. US/Transvaginal Non- IMPRESSION: 1. Nonspecific fluid within the endometrial cavity. 2. Small hyperechoic structure within the endometrial cavity as described above which could represent small polyp. Blood clot is possible. Follow-up exam is recommended if clinically indicated. 3. Small hyperechoic lesion in the fundus of uterus likely representing small uterine fibroid. 4. Unremarkable ovaries. Electronically Signed: Jhonny Ochoa MD at 10:51 EST Tel , Service support ,
--- NOTE | 2018-04-29 08:22 | US_ITS ---
STUDY: ULTRASOUND OF THE FEMALE PELVIS - COMPLETE REASON FOR EXAM: Female, 67 years old. Bloating. Fluid distended endometrium. LMP: Postmenopausal. TECHNIQUE: Transabdominal and Transvaginal TECHNICAL QUALITY: Adequate. COMPARISON: None. FINDINGS: The uterus is anteverted and is in a midline position. The uterus measures 6.4 x 4.4 x 3.1 cm. Normal uterine cervix. The endometrium measures 5 mm in thickness, and is fluid distended. There is a small echogenic structure within the endometrial cavity measuring about 4 mm. It could represent small polyp. Blood clot is possible. There is a small hyperechoic lesion in the fundus of the uterus measuring about 5 mm likely representing small fibroid. I.U.D. - The patient does not have an I.U.D. The right ovary is visualized. The right ovary measures 1.5 x 1.5 x 1.1 cm. There is no right ovarian cyst or ovarian mass. There is no visualized right adnexal mass or complex lesion. There is normal arterial and normal venous vascularity. The left ovary is visualized. The left ovary measures 1.6 x 1.5 x 1.1 cm. There is no left ovarian cyst or ovarian mass. There is no visualized left adnexal mass or complex lesion. There is normal arterial and normal venous vascularity. There is no fluid in the cul-de-sac. The pre void volume of the bladder was 163 ml. Polycystic ovary disease: No. US/Pelvic (Non ) IMPRESSION: 1. Nonspecific fluid within the endometrial cavity. 2. Small hyperechoic structure within the endometrial cavity as described above which could represent small polyp. Blood clot is possible. Follow-up exam is recommended if clinically indicated. 3. Small hyperechoic lesion in the fundus of uterus likely representing small uterine fibroid. 4. Unremarkable ovaries. Electronically Signed: Jhonny Ochoa MD at 10:51 EST Tel , Service support ,
== END ==
PROVIDERS: Family Provider Internal Medicine; PCP Internal Medicine; Referring Provider Nurse Practitioner Women's Health; Visit Provider Nurse Practitioner Women's Health
DX: R14.0 Abdominal distension (gaseous) (principal)
CPT/HCPCS: 76830; 76856

== ENCOUNTER → 2018-06-06 16:08 | Outpatient (CLI) | payer OTHER, SELFPAY ==
[2017-05-28 15:21] VITALS: BMI 26.0
[2018-06-06 14:08] VITALS: BMI 28.1
== END ==
PROVIDERS: Family Provider Internal Medicine; PCP Internal Medicine; Referring Provider Obstetrics & Gynecology; Visit Provider Obstetrics & Gynecology
DX: N39.0 Urinary tract infection, site not specified (principal)
CPT/HCPCS: 87077; 87086; 87088; 87186

== ENCOUNTER → 2018-06-08 08:08 | Outpatient (CLI) | payer OTHER, SELFPAY ==
[2017-05-28 15:21] VITALS: BMI 26.0
[2018-06-06 14:08] VITALS: BMI 28.1
[2018-06-08 08:14] LABS: Bacteria 0 SEEN /hpf (None Seen); Mucous, Urine 0 SEEN /hpf (<or=2+); Red Blood Cells-Urine 0 SEEN /hpf (0-5)
[2018-06-08 09:33] LABS: Absolute Lymphocyte Count 1.12 X10^3/ul (0.83-4.51); Absolute Neutrophil Count 3.5 X10^3/uL (2.0-7.7); Color, Urine Yellow (Yellow); Glucose, Dipstick Normal (Normal); Hematocrit 38.9 % (37-47); Ketone-Dipstick Negative (Negative); Leukocyte Esterase-Dipstick 25 /ul (Negative); Lymphocyte # 1.12 X10^3/ul (4.0); Lymphocyte % 21.7 % (19-41); Mean Corp Hgb Conc 33.4 g/gl (32-36); Mean Corpuscular Volume 80.9 fL (81-99); Mean Platelet Vol. 9.9 fl (6.2-12.0); Monocyte% 9.7 % (0-10); Neutrophil # 3.54 X10^3/uL (2.7-7.7); Neutrophil % 68.6 % (47-70); Nitrite-Dipstick Negative (Negative); Occult Blood-Urine 10 /ul (Negative); POSITIVE COUNT NO; POSITIVE DIFFERENTIAL NO; POSITIVE MORPHOLOGY NO; Platelet Count 402 K/mm3 (150-450); Protein-Dipstick 30 mg/dl (Negative); RBC Distribution Width CV 13.4 % (11.6-14.6); RBC Distribution Width SD 38.7 fl (35.1-43.9); Red Blood Count 4.81 M/mm3 (4.2-5.4); Urine Bilirubin Dipstick Negative (Negative); Urine Clarity Sl. Cloudy (Clear); Urine Urobilinogen Normal (Normal); White Blood Count 5.2 K/mm3 (4.4-11.0)
[2018-06-08 09:46] LABS: Squamous Epithelial Cells - UA 0-5 SEEN /hpf (5-10); White Blood Cells 0-5 SEEN /hpf (0-5)
[2018-06-08 09:52] LABS: Microalbumin:Creatinine Ratio 8.6 mg/g CRE (<30 mg/g CRE)
[2018-06-08 10:07] LABS: ALB/GLOB Ratio 1.2 RATIO (0.9-2.4); AST(SGOT) 21 U/L (15-37); Alanine Aminotransfer ALT/SGPT 27 U/L (13-56); Alkaline Phosphatase 99 U/L (45-117); Anion Gap 6 (5-15); BUN 11 mg/dL (7-18); BUN/Creat Ratio 14.2 RATIO (10-20); Calcium,Total 9.2 mg/dL (8.5-10.1); Chloride 100 mmol/L (98-107); Creatinine, Serum 0.78 mg/dL (0.55-1.02); EST Glomerular Filtration Rate 79 mL/min (>60); Est Glom Filt Rate - Afr Amer 96 mL/min (>60); Ferritin 24 ng/mL (8-252); Globulin 3.4 g/dL (2.2-4.2); Glucose 87 mg/dL (74-106); Iron 45 ug/dL (50-170); Iron Binding Capacity,Total 471 ug/dL (250-450); Potassium 4.1 mmol/L (3.5-5.1); Protein, Total 7.4 g/dL (6.4-8.2); Sodium Level 134 mmol/L (136-145); Thyroid Stim Hormone (TSH) 1.95 uIU/mL (0.358-3.74)
[2018-06-09 14:07] LABS: CHOLESTEROL TOTAL 189 mg/dL (100-199); HDL-C 64 mg/dL (>39); HDL-P TOTAL 36.1 umol/L (>=30.5); SMALL LDL-P 129 nmol/L (<=527); TRIGLYCERIDES 89 mg/dL (0-149)
[2018-06-09 14:39] LABS: INSULIN RESISTANCE SCORE 26 (<=45); LDL SIZE 21.4 nm (>20.5); LDL-C 107 mg/dL (0-99); LDL-P 939 nmol/L (<1000)
== END ==
PROVIDERS: Family Provider Internal Medicine; PCP Internal Medicine; Referring Provider Obstetrics & Gynecology; Visit Provider Obstetrics & Gynecology
DX: Z01.818 Encounter for other preprocedural examination (principal)
CPT/HCPCS: 36415; 80053; 80061; 81001; 82043; 82570; 82728; 83540; 83550; 83704; 84443; 85025; 86850; 86900

== ENCOUNTER → 2018-06-08 08:28 | Outpatient (CLI) | payer OTHER, SELFPAY ==
[2017-05-28 15:21] VITALS: BMI 26.0
[2018-06-06 14:08] VITALS: BMI 28.1
--- NOTE | 2018-06-08 08:30 | CT_ITS ---
STUDY: CT ABDOMEN AND PELVIS WITHOUT CONTRAST REASON FOR EXAM: Female, 67 years old. One-week history of bilateral flank pain and low back pain. RADIATION DOSAGE (If Supplied By Facility): CTDIvol = ( 9.26 ) mGy, DLP = ( 455.75 ) mGycm TECHNIQUE: Transaxial images were obtained from the dome of the diaphragm to the symphysis pubis without oral contrast, and without intravenous contrast. Sagittal and coronal images were reconstructed. Individualized dose optimization techniques were used for this CT. COMPARISON: None. FINDINGS: The visualized lung bases are unremarkable. The visualized portions of the heart are within normal limits. Normal liver. The patient is status post cholecystectomy. Normal spleen. Normal pancreas. Normal bilateral adrenal glands. Normal right kidney. Normal left kidney. Normal visualized stomach. Normal small intestine. Moderate amount of fecal material is seen in the colon. There are surgical clips in the region of the appendix consistent with a prior appendectomy. There is scattered atherosclerotic calcification of the abdominal aorta, without a demonstrated aneurysm. Normal inferior vena cava. Normal retroperitoneum. Normal urinary bladder. Normal abdominal wall. Mild levoscoliosis. CT/Abdomen/Pelvis without Cont IMPRESSION: Moderate amount of fecal material is seen in the colon. No acute abnormality is seen. Electronically Signed: Win Vizcaino, at 9:16 EDT , Service support ,
== END ==
PROVIDERS: Family Provider Internal Medicine; PCP Internal Medicine; Referring Provider Obstetrics & Gynecology; Visit Provider Obstetrics & Gynecology
DX: R10.9 Unspecified abdominal pain (principal)
CPT/HCPCS: 74176

== ENCOUNTER 2018-06-09 11:51 | Day surgery (SDC) | payer OTHER, SELFPAY ==
[2017-05-28 15:21] VITALS: BMI 26.0
[2018-03-16 16:14] VITALS: BMI 28.1
[2018-06-06 14:08] VITALS: BMI 28.1
[2018-06-09] VITALS (7 sets, daily range): BP systolic 149–162; BP diastolic 80–87; PULSE 66–78; RESP 16; TEMP 36.1–36.9; O2SAT 95–100; BMI 28.5
--- NOTE | 2018-06-09 08:08 | HP.PCM_ITS ---
- Problem List (1) FREDY (obstructive sleep apnea) Status: Acute Comment: AutoPap 5-12 cm water (2) Over weight Status: Acute Comment: BMI 27.1 (3) RLS (restless legs syndrome) Status: Acute (4) Sinusitis, acute Status: Acute Qualifiers: (5) Osteoporosis Status: Chronic Qualifiers: (6) Endometrial thickening on ultrasound Status: Acute History and Physical Date of Admission: 06/09/18 Intake Vital Signs 05/30/18 Body Mass Index (BMI) 28.1 05/30/18 Height 5 ft 8 in 05/30/18 Weight: 187 lb 4 oz 05/30/18 Body Mass Index (BMI) 28.4 05/30/18 Blood Pressure 130/82 H Intake Visit Reasons: pre op D&C Chief Complaint: pre op d&c 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: No Is patient in pain?: No Allergies No Known Allergies Allergy (Verified 05/30/18 11:46) Medications Ferrous Sulfate 325 mg PO QODAY 06/29/14 [History Confirmed 05/30/18] Omeprazole [Prilosec] 20 mg PO DAILY 06/29/14 [History Confirmed 05/30/18] calcium carbonate 500 mg calcium (1,250 mg) tablet 500 mg PO QDAY tab 07/19/17 [History Confirmed 05/30/18] cholecalciferol (vitamin D3) 1,000 unit capsule 1,000 unit PO QDAY 07/19/17 [History Confirmed 05/30/18] denosumab 60 mg/mL subcutaneous syringe 60 mg SC [id number] 07/19/17 [History Confirmed 05/30/18] fluoxetine 10 mg capsule 20 mg PO DAILY cap 07/19/17 [History Confirmed 05/30/18] conjugated estrogens 0.625 mg/gram vaginal cream See Rx Instructions TOPICAL .COMPLEX 10/20/17 [History Confirmed 05/30/18] eletriptan 20 mg tablet 20 mg PO ONCE 10/20/17 [History Confirmed 05/30/18] amlodipine 5 mg tablet 5 mg PO DAILY 05/30/18 [History Confirmed 05/30/18] oxybutynin chloride ER 5 mg tablet,extended release 24 hr 5 mg PO QDAY #30 tab 05/30/18 [Rx Confirmed 05/30/18] Is last menstrual period known: No Post menopausal: No Patient : No : No PFSH Medical History Sinusitis, acute (Acute) Abdominal bloating (Acute) Acute pharyngitis (Acute) Bronchitis (Acute) Cough (Acute) Foot fracture, right (Acute) Gasping for breath (Acute) Headache (Acute) Hematuria (Acute) Pain in unspecified joint (Acute) Urinary urgency (Acute) Wheezing (Acute) Depression (Chronic) GERD (gastroesophageal reflux disease) (Chronic) HTN (hypertension) (Chronic) Hypercholesterolemia (Chronic) Iron deficiency anemia (Chronic) Migraine (Chronic) OCD (obsessive compulsive disorder) (Chronic) FREDY (obstructive sleep apnea) (Chronic) Osteoporosis (Chronic) RLS (restless legs syndrome) (Chronic) Rosacea (Chronic) Small vessel disease, cerebrovascular (Chronic) Surgical History History of appendectomy (Resolved) History of cholecystectomy (Resolved) Family History Father Diabetes Mother Rheumatoid arthritis Macular degeneration Brother Diabetes Brother Diabetes Social History household members: spouse housing: house 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 she dneies any bleeding, jus thaving some bloating Female Reproductive History Menopausal Symptoms: No night sweats Pregancy History 2 Elective abortions Hx Para 2 Spontaneous abortions Hx # Term Pregnancies Ectopic pregnancies Hx # Pregnancies Multiple births # of living children Past Pregnancies Del. Date Name GA/Weeks Outcome Route Bth Weight Infant Gen Labor Lgth Anesthesia Del Locatn Provider FOB Unknown 1977 [place] Unknown 1980 [place] ROS Const Constitutional: Denies fatigue, night sweats, weight gain or weight loss ENT ENT: Reports system reviewed and no additional complaints, except as docu Cardio Card: Denies chest pain Resp Resp: Denies cough or dyspnea GI GI: Reports as per HPI; denies abdominal pain, constipation, nausea or vomiting : Denies nipple discharge, urinary frequency, urinary incontinence, urinary hesitancy, urinary urgency, vaginal discharge, vaginal dryness, vaginal odor or vaginal itching Musc Musc: Denies joint pain, back pain or muscle weakness Skin Skin/Breast: Denies hair loss, change in hair, dry skin, breast lump, breast pain, breast skin changes or nipple discharge Neuro Neuro: Reports system reviewed and no additional complaints, except as docu Psych Psych: Reports system reviewed and no additional complaints, except as docu Endo Endo: Denies cold intolerance, excessive sweating, heat intolerance or increased thirst Mark/Lymph Hematologic/Lymphatic: Denies easy bleeding, Denies easy bruising, Denies enlarged lymph nodes Exam Const General: cooperative, healthy appearing, comfortable, no acute distress, well developed Orientation: alert [facility] Head: normal to inspection, normocephalic Ears: hearing grossly normal bilaterally, external ears normal Nose: external nose normal, nares normal Face and sinus: normal facial exam Neck Neck: normal visual inspection, no lymphadenopathy Thyroid: thyroid normal Chest Chest palpation & inspection: normal inspection of the chest Resp Effort & Inspection: normal respiratory effort Cardio Rate: regular rate GI Inspection: normal to inspection, non-distended Palpation: soft, no hepatosplenomegaly Musc Other: gross motor intact no deficits, full bilateral strength Skin General: no rashes or lesions noted Neuro General: alert, awake, moves all extremities, no focal motor deficits Motor: muscle tone normal throughout Extrem General: normal to inspection, no pedal edema Psych Appearance: grossly normal Mental Status: mental status grossly normal Affect: normal affect Speech and Movement: speech and movement normal Assessment & Plan Problems 1. Endometrial thickening on ultrasound R93.89 Plan plan d and c hysteroscopy symphion. discussed surgical risks including risks of anesthesia, infection, bleeding, injury to bowel, bladder or blood vessels, and patient wishes to proceed with surgery. Medications New: oxybutynin chloride ER 5 mg PO QDAY 30 tabs 12RF Coding Level of Care Code No Charge Diagnoses Endometrial thickening on ultrasound R93.89 UPDATE- I have seen the patient and performed any clinically relevant updates to the history and physical exam. Padmini Dunbar MD
--- NOTE | 2018-06-09 13:10 | PCM.OPRPT ---
Problem List (1) FREDY (obstructive sleep apnea) Status: Acute Comment: AutoPap 5-12 cm water (2) Over weight Status: Acute Comment: BMI 27.1 (3) RLS (restless legs syndrome) Status: Acute (4) Sinusitis, acute Status: Acute Qualifiers: (5) Osteoporosis Status: Chronic Qualifiers: (6) Endometrial thickening on ultrasound Status: Acute Report of Operation Date of Procedure: 06/09/18 Pre-Operative Diagnosis: thickened endometrium Post-Operative Diagnosis: same Surgery/Procedure Performed:: hysteroscopic resection of fibroid Description of Surgical Findings:: Right anterior wall submucosal fibroid otherwise atrophic lining with cervical stenosis Type of Anesthesia:: Local MAC Special Medications: none Specimen's removed: Endometrial curettings Drains: none Estimated Blood Loss (mL): Minimal Fluids Replaced: Crystalloid Description of Procedure: Patient was prepped and draped in a normal sterile fashion under MAC anesthesia. A weighted speculum was placed in the vagina and the anterior lip of the cervix was grasped with a single-tooth tenaculum. A paracervical block was placed with 1% lidocaine. Cervix was progressively dilated to allow passage of a 5 mm hysteroscope. The lining was fully visualized and noted to have what appeared to be a submucosal fibroid on the upper right anterior wall of the uterus. Uterine sounded to 8 cm. Curettage was performed visually using the symphion device and the submucosal cell fibroid was resected using the Symphony on device without complication, the entire lining was sampled visually, sent to pathology. All instruments were removed from the vagina and excellent hemostasis was noted. Patient was awoken and taken to recovery in stable condition. Grafts/Implants Used: none - Complications none
--- NOTE | 2018-06-09 13:35 | EMB_PTH ---
PATIENT: TORIBIO [place]AO [place] [facility] [id number] AGE/SX: 67/F ROOM: RE06/09/[address]: Dr. Padmini Dunbar MD : 1950 BED: DIS: 06/09/2018 SPEC #: [id number] RECD: 06/10/18 07:54 STATUS: MARY REKelsy #: [id number] STONE: 06/09/18 13:[address]: Padmini Dunbar DEPT: SURGICAL PATHOLOGY RECD BY: Carlos Garcia ENTERED: 06/10/18 09:54 SP TYPE: ENDOM BX/C OTHR DR: Dr. Shila Dinh DO Tissues: Endometrium, NOS Procedures: Surgery Specimen Level IV HEADER OPERATION: Hysteroscopy, D & C, resection, Symphion PRE-OP DIAGNOSIS: Acute cystitis without hematuria TISSUE SUBMITTED: Endometrial lesion MICROSCOPIC DIAGNOSIS Endometrial lesion, D & C: Fragments of benign endometrial tissue and superficial myometrial tissue. SJ:roberto 06/13/18 COMMENT Correlation with clinical findings and appropriate follow up are necessary. MICROSCOPIC DESCRIPTION Slides are reviewed. GROSS DESCRIPTION Received in fixative is one container labeled with the patient's name and designated endometrial lesion. The specimen consists of multiple irregular fragments of shah soft tissue mixed with blood clot that in aggregate measure 2 x 0.5 x 0.1 cm. The entire specimen is submitted in one cassette. / СЕРГЕЙ:roberto 06/10/18 TC:5 CPT: 10520
--- NOTE | 2018-06-09 14:01 | DCINST_ITS ---
Discharge Diet: No Restrictions Discharge Activity: Return to Normal Activity, May Shower, May Take a Tub Bath Allergies/Adverse Reactions: Allergies No Known Allergies Allergy (Verified 06/09/18 12:10) Medications to take at Discharge Ferrous Sulfate 325 mg PO QODAY 06/29/14 Omeprazole [Prilosec] 20 mg PO DAILY 06/29/14 calcium carbonate 500 mg calcium (1,250 mg) tablet 600 mg PO QDAY tab 07/19/17 cholecalciferol (vitamin D3) 1,000 unit capsule 1,000 unit PO QDAY 07/19/17 denosumab 60 mg/mL subcutaneous syringe 60 mg SC [id number] 07/19/17 fluoxetine 10 mg capsule 20 mg PO DAILY cap 07/19/17 conjugated estrogens 0.625 mg/gram vaginal cream See Rx Instructions TOPICAL .COMPLEX 10/20/17 eletriptan 20 mg tablet 20 mg PO PRN PRN 10/20/17 amlodipine 5 mg tablet 5 mg PO DAILY 05/30/18 oxybutynin chloride ER 5 mg tablet,extended release 24 hr 5 mg PO QDAY #30 tab 0 05/30/18 Primary Care Physician: Shila Dinh DO [Primary Care Provider] - Test Results: Test results from this visit will be discussed in further detail at your follow- up appointment, if applicable. Please Follow Up With: Padmini Dunbar MD - [phone]
== END 2018-06-09 15:27 | disposition home or self-care (01) ==
LOC: SDC 11:52 → AC 11:53
PROVIDERS: Family Provider Internal Medicine; PCP Internal Medicine; Referring Provider Obstetrics & Gynecology; Visit Provider Obstetrics & Gynecology
PROC: 0UB98ZZ Excision of Uterus, Via Natural or Artificial Opening Endoscopic (ICD-10-PCS; CPT 58558; principal; 2018-06-09 13:20)
DX: D25.0 Submucous leiomyoma of uterus (principal); R93.89 Abnormal findings on diagnostic imaging of other specified body structures; N30.00 Acute cystitis without hematuria; G47.33 Obstructive sleep apnea (adult) (pediatric); G25.81 Restless legs syndrome; M81.0 Age-related osteoporosis without current pathological fracture; E66.3 Overweight; Z68.27 Body mass index [BMI] 27.0-27.9, adult; K21.9 Gastro-esophageal reflux disease without esophagitis; F42.9 Obsessive-compulsive disorder, unspecified; I10 Essential (primary) hypertension; G43.909 Migraine, unspecified, not intractable, without status migrainosus; E78.00 Pure hypercholesterolemia, unspecified; D50.9 Iron deficiency anemia, unspecified; Z79.899 Other long term (current) drug therapy
CPT/HCPCS: 58558; 88305; J7120; J2405

== ENCOUNTER → 2018-06-14 | Outpatient (CLI) | payer OTHER, SELFPAY ==
[2017-05-28 15:21] VITALS: BMI 26.0
[2018-06-09 12:20] VITALS: BMI 28.5
--- NOTE | 2018-06-14 17:00 | RAD_ITS ---
STUDY: X-RAY - LUMBAR SPINE REASON FOR EXAM: Female, 67 years old. Pain after working in yard TECHNIQUE: 5 view(s) of the lumbar spine were obtained. COMPARISON: None FINDINGS: Normal lumbar lordosis. There is a levoscoliosis of the lumbar spine. There is a normal alignment of the vertebrae. Normal vertebral bodies and endplates. Normal disc space heights. The soft tissue structures are unremarkable. Pelvic clips. RAD/L/S Spine Min 4 Views IMPRESSION: No acute osseous injury is evident. Comment: If there is further clinical concern for a radiographically occult spinal fracture, consider CT correlation if possible. Electronically Signed: Ollie Sal MD at 12:41 EDT Tel , Service support ,
== END | disposition home or self-care (01) ==
LOC: RAD 16:59
PROVIDERS: Family Provider Internal Medicine; PCP Internal Medicine; Referring Provider Nurse Practitioner; Visit Provider Nurse Practitioner
DX: M54.9 Dorsalgia, unspecified (principal)
CPT/HCPCS: 72110

== ENCOUNTER → 2018-07-04 14:02 | Outpatient (CLI) | payer OTHER, SELFPAY ==
[2017-05-28 15:21] VITALS: BMI 26.0
[2018-06-23 09:09] VITALS: BMI 28.5
--- NOTE | 2018-07-04 14:07 | MRI_ITS ---
STUDY: MRI LUMBAR SPINE WITHOUT CONTRAST REASON FOR EXAM: Female, 67 years old. Low back pain for 4 1/2 weeks TECHNIQUE: Standardized fat and water weighted pulse sequences were obtained in the sagittal and axial planes. COMPARISON: Radiographs 06/14/2018 FINDINGS: T12-L1: Normal endplates. Normal disc height, hydration and morphology. Normal bilateral facet joints. Normal central canal and bilateral lateral recesses. Normal bilateral intervertebral neural foramina. Normal lumbar lordosis. There is no substantial scoliosis. Normal conus medullaris that terminates at the L2 level. Subacute compression deformities of the superior endplates of L1 and L2 are noted with mild loss of height at each level and mild L1 retropulsion. No L2 retropulsion. Acute compression deformity of the superior endplate of T11 with mild retropulsion. L1-2: Bulging annulus without compressive sequelae. L2-3: Normal endplates. Normal disc height, hydration and morphology. Normal bilateral facet joints. Normal central canal and bilateral lateral recesses. Normal bilateral intervertebral neural foramina. L3-4: Normal endplates. Normal disc height, hydration and morphology. Normal bilateral facet joints. Normal central canal and bilateral lateral recesses. Normal bilateral intervertebral neural foramina. L4-5: Bulging annulus and broad left foraminal disc protrusion with bilateral facet hypertrophy and right facet joint effusion. Moderate left lateral recess stenosis and moderate left and mild right foraminal stenoses. L5-S1: Bulging annulus and bilateral facet hypertrophy and facet joint effusions with moderate right and mild left foraminal stenoses. 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 Normal visualized paraspinous soft tissue structures. MRI/Spine Lumbar (Routine) IMPRESSION: Subacute compression deformities of the superior endplates of L1 and L2 are noted with mild loss of height at each level and mild L1 retropulsion. No L2 retropulsion. Acute compression deformity of the superior endplate of T11 with mild retropulsion. No epidural hematoma. Multilevel degenerative disease as described. Moderate left lateral recess stenosis at L4-5. Moderate foraminal stenoses on the left at L4-5 and on the right at L5-S1. Electronically Signed: Ollie Sal MD at 16:17 EDT Tel , Service support ,
== END ==
PROVIDERS: Family Provider Internal Medicine; PCP Internal Medicine; Referring Provider Internal Medicine; Visit Provider Internal Medicine
DX: M54.9 Dorsalgia, unspecified (principal)
CPT/HCPCS: 72148

== ENCOUNTER 2018-07-06 17:00 | Outpatient (RCR) | payer OTHER, SELFPAY ==
[2017-05-28 15:21] VITALS: BMI 26.0
[2018-06-09 12:20] VITALS: BMI 28.5
[2018-06-23 09:09] VITALS: BMI 28.5
--- NOTE | 2018-06-23 17:54 | HP.PTEVAL_ITS ---
Patient's Visit Information TORIBIO YAO is a 67 year old F referred to Physical Therapy by Penny Shukla NP with a diagnosis of BACK PAIN. Date of Evaluation: 06/23/18 Physical Therapist: Francis Pacheco PT, Cert MDT, OCS - Visit Plan Frequency: 2x /Week Duration: 4 Weeks Plan: Patient is highlt irritable. INTITATE INTERVENTIONS WITH MODLATIES FOR PAIN RELEILVE ,GRADED LUMBAR ROM ..NIRMAL EX'S,PROGRESS TO DLS WHEN ABLE .POSTURAL EX'S - Subjective Findings: This 67 y/o female presents to physical therapy with Back pain. Patient has had lumbar pain about 3 weeks symmtrical lower L-S region. Patient aggravated lumbar spine working outside during yardwork . Patient had to call off work . Patient discribed as ache sharp pain. Seen DR chavez predisone,did x-rays and CATSCAN.Aggraveting factors morning,getting out of bed,bending,lifting,elevation from ,sitting. Alleviated symptoms cold,occassional walking.Denies paratghesia/tingling. +Coughing/sneezing .Bowel/bladder. No h/o back pain.No trauma. Tried massge. Patient pain affects ability to perform job demands ADL'S,,housework tasks. Patient symptoms affect QOL.MD has ordered MRI. SOCAIL: . VOCATION: [facility] - Pain Bilateral Back Pain Intensity (Out of 10): 6 Pain Intensity Range: 10 - Objective POSTURE: mild foward posture. GAIT: mild foward posture antigic gait guarded gait. NEURO:denies parathesia/tingling,reflexes L3-4,L4-5,L5-S1 2/3. PALAPTION: unremarkable. FLEXABILITY: hams min tight. MMT: quads/ham s/hip/ankle 4/5. LUMBAR ROM: flexion mod loss pain,extension mod/severe loss pain , side glides mod loss. pain all planes - Special Tests L/S Slump test left side: Positive L/S Slump test right side: Positive L/S Left Straight Leg Raise: Negative L/S Right Straight Leg Raise: Negative Lumbar Standing: Flexion - Mechanical Response: No effect Lumbar Standing: Flexion - Symptoms During Testing: Increases Lumbar Standing: Flexion - Symptoms After Testing: Worse Lumbar Standing: Extension - Mechanical Response: No effect Lumbar Standing: Extension - Symptoms During Testing: Increases Lumbar Standing: Extension - Symptoms After Testing: No worse Lumbar Standing: Right Side Wood[place] - Symptoms During Testing: Increases Lumbar Standing: Right Side [place] - Symptoms After Testing: No worse Lumbar Standing: Left Side [place] - Mechanical Response: No effect Lumbar Standing: Left Side [place] - Symptoms During Testing: Increases Lumbar Standing: Left Side [place] - Symptoms After Testing: No worse Lumbar Lying: Flexion - Mechanical Response: No effect Lumbar Lying: Flexion - Symptoms During Testing: Increases Lumbar Lying: Flexion - Symptoms After Testing: Worse Lumbar Lying: Extension - Mechanical Response: No effect Lumbar Lying: Extension - Symptoms During Testing: Increases Lumbar Lying: Extension - Symptoms After Testing: No worse - Goals Goal 1:: Independant with HEP Goal Time Frame: 4-6 Weeks Goal 2:: Independant with posture /body mechanics Goal Time Frame: 4-6 Weeks Goal 3:: Patient to decrease pain by 50% or greater to improve function Goal Time Frame: 4-6 Weeks Goal 4:: Patient to improve lumbar ROM for function of recovery Goal Time Frame: 4-6 Weeks Goal 5:: Patient to be d/c to prophalaxis. Goal Time Frame: 4-6 Weeks Goal 6:: Patient to omprove back owestry scale by 5-10 points to improve function. Goal Time Frame: 4-6 Weeks - Rehabilitation Potential Physical Therapy Diagnosis: Patient appears to have possible derrangement with disc involvement with with pain .pain all movements ,impairs gait ,function ,ADL'S AND JOB DEMANDS. Patient was unble find movement to releive sympsto ms,thus benifit from skilled PT - Anticipated Interventions Patient/Client Instruction: Educate patient on: Condition, Plan of Care For the Purpose of:: To decrease pain, To increase ROM, To improve nutrient delivery to tissue, To increase oxygenation perfusion, To improve muscle performance and motor function, To increase tolerance to activity/condition/position, To improve ability of physical actions for home/community/work/leisure, To improve health of tissue, To decrease soft tissue restriction, To reduce risk of recurrence, To improve ability to perform tasks related to life management Therapeutic Exercise to Include: Strength training, Body mechanics, Postural training, Flexibilty training, Active ROM, Dynamic Lumbar Stabilization, Nirmal Exercises For the Purpose of:: To decrease pain, To increase ROM, To improve nutrient delivery to tissue, To increase oxygenation perfusion, To improve muscle performance and motor function, To increase tolerance to activity/condition/position, To improve ability of physical actions for home/community/work/leisure, To improve health of tissue, To decrease soft tissue restriction, To increase flexibility/ROM, To improve ability to perform tasks related to life management TENS: Yes IF ES: Yes Cryotherapy (ice pack, ice massage): Yes Thermo therapy (hot pack): Yes Ultrasound (thermal/non thermal): Yes For the Purpose of:: To decrease pain, To increase ROM, To improve nutrient delivery to tissue, To increase oxygenation perfusion, To improve health of tissue, To decrease soft tissue restriction Thank you for the opportunity to evaluate your patient. For Medicare and Medicare HMO plans, please review the plan of care and approve it. It will need to be FAXED BACK to us at [phone] for Medicare purposes. For Medicare only, by signing this I certify the plan of care. Please let me know if there are questions or concerns regarding this plan of care. Physician Signature: Date:
--- NOTE | 2018-10-04 08:17 | HP.PTDCNRP_ITS ---
HP - Discharge Summary (1) - Patient Information TORIBIO YAO was seen in my office for initial evaluation on 06/23/18. The following Plan of Care was established for this patient: Initial Frequency: 2x /Week Initial Duration: 4 Weeks - Anticipated Interventions Patient/Client Instruction: Educate patient on: Condition, Plan of Care For the Purpose of:: To decrease pain, To increase ROM, To improve nutrient deli very to tissue, To increase oxygenation perfusion, To improve muscle performance and motor function, To increase tolerance to activity/condition/position, To improve ability of physical actions for home/community/work/leisure, To improve health of tissue, To decrease soft tissue restriction, To reduce risk of recurrence, To improve ability to perform tasks related to life management Therapeutic Exercise to Include: Strength training, Body mechanics, Postural training, Flexibilty training, Active ROM, Dynamic Lumbar Stabilization, Eliot Exercises For the Purpose of:: To decrease pain, To increase ROM, To improve nutrient delivery to tissue, To increase oxygenation perfusion, To improve muscle performance and motor function, To increase tolerance to activity/condition/position, To improve ability of physical actions for home/community/work/leisure, To improve health of tissue, To decrease soft tissue restriction, To increase flexibility/ROM, To improve ability to perform tasks related to life management TENS: Yes IF ES: Yes Cryotherapy (ice pack, ice massage): Yes Thermo therapy (hot pack): Yes Ultrasound (thermal/non thermal): Yes For the Purpose of:: To decrease pain, To increase ROM, To improve nutrient delivery to tissue, To increase oxygenation perfusion, To improve health of tissue, To decrease soft tissue restriction This patient was last seen in our office 07/06/18. Pertinent comments regarding their Physical therapy will appear below: Patient seen for PT for low back pain . Patient had MRI showed to have compression fracture deformity. Thus is d/c to MD At this point I will be discontinuing this patient from physical therapy. I would be happy to see this patient again in the future if found appropriate by the physician. Thank you! Francis Pacheco, PT, Cert MDT, OCS
== END 2018-07-06 19:00 | disposition home or self-care (01) ==
LOC: PT 17:00
PROVIDERS: Family Provider Internal Medicine; PCP Internal Medicine; Referring Provider Nurse Practitioner; Visit Provider Nurse Practitioner
DX: M54.9 Dorsalgia, unspecified (principal)
CPT/HCPCS: 97014; 97035; 97162; G0283

== ENCOUNTER → 2018-07-12 14:08 | Outpatient (CLI) | payer OTHER, SELFPAY ==
[2017-05-28 15:21] VITALS: BMI 26.0
[2018-06-23 09:09] VITALS: BMI 28.5
[2018-07-12] MEDS: DENOSUMAB 60 MG/ML ML SQ (14:28)
[2018-07-12 14:32] VITALS: BP 128/69; PULSE 79; RESP 16; TEMP 37.4; O2SAT 100
== END ==
PROVIDERS: Family Provider Internal Medicine; PCP Internal Medicine; Referring Provider Internal Medicine; Visit Provider Internal Medicine
DX: M81.0 Age-related osteoporosis without current pathological fracture (principal)
CPT/HCPCS: 96372; J0897

== ENCOUNTER 2018-07-27 11:52 | Emergency (ER) | payer OTHER, SELFPAY ==
[2017-05-28 15:21] VITALS: BMI 26.0
[2018-06-23 09:09] VITALS: BMI 28.5
[2018-07-27 11:53] VITALS: BP 139/91; PULSE 83; RESP 16; TEMP 36.6; O2SAT 98; BMI 28.0
--- NOTE | 2018-07-27 12:20 | RAD_ITS ---
STUDY: X-RAY CHEST REASON FOR EXAM: Female, 67 years old. Shortness of breath. TECHNIQUE: PA and lateral views of the chest. COMPARISON: None. FINDINGS: Minimal increased linear markings in the medial aspect of the left lower lobe most likely secondary to atelectasis. There is no demonstrated pleural abnormality. Normal size heart. Normal mediastinum and brad. Normal visualized pulmonary arteries. Normal visualized aortic arch and descending thoracic aorta. Known compression fracture of the T6 vertebra. Normal visualized ribs, clavicles, and shoulders. There is no demonstrated abnormality of the visualized soft tissue structures of the upper abdomen. RAD/Chest PA and Lateral IMPRESSION: Findings suggestive of atelectasis at the left lung base. Midthoracic thoracic compression fracture. Electronically Signed: Win Vizcaino, at 14:22 EDT , Service support ,
--- NOTE | 2018-07-27 12:21 | MRI_ITS ---
STUDY: MRI THORACIC SPINE WITHOUT CONTRAST REASON FOR EXAM: Female, 67 years old. Severe back pain and bladder incontinence TECHNIQUE: Standardized fat and water weighted pulse sequences were obtained in the sagittal and axial planes. COMPARISON: None. FINDINGS: An acute compression fracture of the superior endplate of T7 is noted with moderate loss of anterior height and no significant loss of posterior height. No retropulsion. A subacute compression fracture of the superior endplate of T8 is noted with mild loss of anterior height and mild retropulsion. A subacute compression fracture of the superior endplate of T11 is noted with mild loss of anterior height and mild to moderate retropulsion. Subacute compression fracture of the superior endplate of L1 is noted with mild loss of height and mild retropulsion. No evidence of cord contusion, epidural hematoma, or ligament disruption. Small bilateral pleural effusions. No paraspinal hematoma is seen. Diffuse degenerative disc disease without evidence of zenon exiting nerve root impingement. MRI/Spine Thoracic (Routine) IMPRESSION: Acute compression fracture of T7 without retropulsion. Subacute compression fractures of T8, T11, and L1. Mild to moderate retropulsion at T11. Mild retropulsion at T8 and L1. No evidence of cord pathology or epidural hematoma. Electronically Signed: Ollie Sal MD at 14:49 EDT Tel , Service support ,
--- NOTE | 2018-07-27 12:31 | ED.DCSUM_ITS ---
History of Present Illness Chief Complaint: Back Informant: Patient Narrative: Patient presenting secondary to actually multiple chief complaints. First off patient states that she is been dealing with back pain for about 8 weeks secondary to compression fractures. Patient states that the pain has been getting worse over the course of the last 8 weeks, now was associated with severe back spasms that will come and go and have no exacerbating relieving factors. She reports that she has recently developed bowel and bladder incontinence associated with this. She denies any numbness or weakness. She has had a lumbar MRI, but has a thoracic MRI that is scheduled but apparently has not been approved due to some miscommunications with her spine surgeon. However, patient states that over the course of the last 3 days or so she has been dealing with exertional dyspnea and intermittent burning chest pain. She reports the chest pain will come and go and does not have any sort of exacerbating relieving factors, but the exertional dyspnea is associated with shortness of breath even with light exertion. She denies any recent illnesses. She does have a history of hypertension but denies any other cardiovascular risk factors, she is a non-smoker, she does not have any premature family history of cardiac disease. She denies any DVT or PE risk factors. Most recent stress test was about 15 years ago. Review of systems otherwise negative. Past Medical History - Allergies and Home Meds Allergies/Adverse Reactions: Allergies No Known Allergies Allergy (Verified 07/27/18 11:55) Smoking Status: Never smoker Review of Systems All systems negative except as indicated General: Denies: Chills, Fever Cardiovascular: Reports: Chest pain Respiratory: Reports: Dyspnea, Dyspnea on exertion. Denies: Orthopnea Gastrointestinal: Denies: Abdominal pain Genitourinary: Reports: - - Bowel and bladder incontinence Musculoskeletal: Reports: Back pain Neurological: Denies: Weakness, Parasthesia, Numbness Physical Exam Vital Signs/Narrative: Vital Signs Temp Pulse Resp BP Pulse Ox 07/27/18 11:53 98 F 83 16 139/91 H 98 Inital Vital Signs reviewed: Yes General: Well nourished, Well developed, No Acute Distress Head: Normocephalic, Atraumatic Eyes: Perrl, EOMI ENT: Moist mucous membranes, No rhinorrhea Neck: Supple, Nontender Cardiovascular: Regular rate, Regular rhythm, No murmurs Respiratory: No distress, CTA bilaterally, Chest nontender Abdomen: Soft, Nontender, Nondistended, Normal bowel sounds, No masses Back: - - Diffuse paraspinal and spinal tenderness to palpation in the thoracic back. Kyphotic Extremities: Nontender, No edema Skin: Normal color Neurological: Alert, Oriented x3, Cranial nerves II-XII grossly intact, Normal Strength, Normal Sensation Psychological: Normal affect Diagnostic/Tx/Re-eval - EKG Initial EKG Interpretation: - - Sinus rhythm at [address] segments normal T waves, some LVH changes but no evidence of acute ischemia or arrhythmia - Medical Decision Making Patient presented with chest pain and back pain. The seem to be to completely separate etiologies, but the patient was complaining about some bowel and bladder incontinence with back pain so a thoracic MRI was obtained as she has already had a lumbar MRI in the past. Thoracic MRI does not demonstrate significant evidence of cord compression. as far as the patient's chest pain and exertional dyspnea chest pain work-up was obtained which was found to be negative including CBC chemistry troponin and chest x-ray. Patient's heart score is a 4, she has not had provocative testing in at least 15 years of believe she requires admission. Patient will be admitted to the hospitalist. Disposition: Admit to PCU ED Disposition - Plan for ED Patient: Disposition: [facility] Diagnosis: Chest pain, Back pain
[2018-07-27] MEDS: Aspirin 81 MG TAB.CHEW 324 MG PO (12:39)
[2018-07-27 12:47] VITALS: O2SAT 98
[2018-07-27 12:57] LABS: Absolute Lymphocyte Count 1.24 X10^3/ul (0.83-4.51); Absolute Neutrophil Count 5.3 X10^3/uL (2.0-7.7); Hematocrit 34.5 % (37-47); Hemoglobin 11.3 g/dl (12.0-15.0); Lymphocyte # 1.24 X10^3/ul (4.0); Lymphocyte % 17.4 % (19-41); Mean Corp Hgb Conc 32.8 g/gl (32-36); Mean Corpuscular Volume 82.3 fL (81-99); Mean Platelet Vol. 8.5 fl (6.2-12.0); Monocyte# 0.56 X10^3/uL; Monocyte% 7.9 % (0-10); Neutrophil % 74.6 % (47-70); Platelet Count 381 K/mm3 (150-450); RBC Distribution Width CV 14.6 % (11.6-14.6); RBC Distribution Width SD 43.1 fl (35.1-43.9); Red Blood Count 4.19 M/mm3 (4.2-5.4); White Blood Count 7.1 K/mm3 (4.4-11.0)
[2018-07-27 13:00] LABS: POSITIVE COUNT NO; POSITIVE DIFFERENTIAL NO; POSITIVE MORPHOLOGY NO
[2018-07-27 13:13] LABS: Anion Gap 5 (5-15); BUN 15 mg/dL (7-18); BUN/Creat Ratio 20.5 RATIO (10-20); Calcium,Total 8.8 mg/dL (8.5-10.1); Chloride 104 mmol/L (98-107); Creatinine, Serum 0.73 mg/dL (0.55-1.02); EST Glomerular Filtration Rate 85 mL/min (>60); Est Glom Filt Rate - Afr Amer 103 mL/min (>60); Glucose 93 mg/dL (74-106); Potassium 3.9 mmol/L (3.5-5.1); Sodium Level 136 mmol/L (136-145)
[2018-07-27 15:11] VITALS: BMI 28.1
[2018-07-27 15:20] VITALS: BP 168/94; PULSE 75; RESP 18; O2SAT 99
--- NOTE | 2018-07-27 15:27 | CASEMGMT ---
RN CM Assessment Introduced role of RN CM to patient.? Patient is alert, oriented and able?to participate in RN CM Assessment. ?Care providers, pharmacy, and demographics verified. Presentation: Back pain x8 weeks secondary to Compression Fx, Has been getting worse over the past 8 weeks with spasms, developed Bowel and Bladder incontinence. Past 3days has had exertional dyspnea and intermittent burning cp. Admit Dx: CP Re-Admit: No Barriers/Issues: None, Patient works at [employer] and states plan to go back to work, was supposed to work tomorrow, inquiring about possibility of working tomorrow after stress test, although states plan to work on Wednesday. PCP: Shila Dinh Specialists: Spine Surgeon- Dr Hossein Chavez (seen x1 week ago). Ortho Surgery- Dr Reis. Pain- Dr Macias Preferred Pharmacy: [facility] Insurance: [employer] [facility] [employer] Benefit:?Yes LNOK: Preet Mae LW/HPOA: Yes both, aware not on file at [facility]. HPOA- Preet Mae Living Arrangements:?Lives with her in a 2 story home, 2 steps to enter through the Garage, does not go through the front. ADL?s: Independent with ambulation and ADL's Transportation: Patient drives, will transport on DC DME: CPAP HHC: None SNF: None Goal: Home, does not think will have any needs. DC PLAN: Home with no anticipated needs identified at this time. WILL Buckner
--- NOTE | 2018-07-27 15:38 | ED.RN ---
hosp to see in ed d/t possibility of pt not needing admission
== END 2018-07-27 17:11 | disposition home or self-care (01) ==
LOC: ED 15:12 → PCU 15:54
PROVIDERS: Emergency Provider Emergency Medicine; Family Provider Internal Medicine; PCP Internal Medicine
DX: R07.9 Chest pain, unspecified (principal); M54.6 Pain in thoracic spine; I10 Essential (primary) hypertension; Z79.899 Other long term (current) drug therapy
CPT/HCPCS: 71046; 72146; 80048; 84484; 85025; 93005; 99285; A4216

== ENCOUNTER 2018-08-26 11:49 | Day surgery (SDC) | payer OTHER, SELFPAY ==
[2017-05-28 15:21] VITALS: BMI 26.0
[2018-08-26] VITALS (8 sets, daily range): BP systolic 137–166; BP diastolic 76–93; PULSE 65–78; RESP 16–18; TEMP 36.3–37; O2SAT 92–98; BMI 27.8
[2018-08-26] MEDS: Cefazolin 2 GM in 0.9% Normal Saline 100 ML IV (14:25)
--- NOTE | 2018-08-26 14:30 | RAD_ITS ---
CLINICAL HISTORY: Female, 68 years old. PROCEDURE: KYPHOPLASTY - CONSENT: SEDATION: FLUOROSCOPY TIME (if supplied): ( ) minutes/seconds RADIATION DOSAGE (If Supplied By Facility): CTDIvol = ( ) mGy, DLP = ( ) mGycm TECHNIQUE: (All elements of maximal sterile barrier technique followed, including US elements as applicable) There is 50% loss of volume of the body of L1 and mild loss of volume of the body of L2 Interpedicular probes seen of L1 and L2 , The images showed the cement within these [address]. RAD/Lumbar Spine 2 or 3 Views IMPRESSION: Uneventfully vertebroplasty of L1 and L2. Electronically Signed: Eliseo Barraza, at 9:19 EDT Tel , Service support ,
[2018-08-26] MEDS: Bupivacaine Mpf 0.5% 30 ML VIAL (15:19)
== END 2018-08-26 17:48 | disposition home or self-care (01) ==
LOC: PAT 11:52 → AC 11:53
PROVIDERS: Family Provider Internal Medicine; PCP Internal Medicine; Referring Provider Anesthesiology Pain Medicine; Visit Provider Anesthesiology Pain Medicine
PROC: (CPT 22514; principal; 2018-08-26 13:15)
DX: M80.08XA Age-related osteoporosis with current pathological fracture, vertebra(e), initial encounter for fracture (principal); M51.17 Intervertebral disc disorders with radiculopathy, lumbosacral region; I10 Essential (primary) hypertension; D64.9 Anemia, unspecified; K21.9 Gastro-esophageal reflux disease without esophagitis; G43.909 Migraine, unspecified, not intractable, without status migrainosus; G47.30 Sleep apnea, unspecified; Z79.899 Other long term (current) drug therapy
CPT/HCPCS: 22514; 22515; 72100; 76000; J7120; J2405

== ENCOUNTER 2018-09-09 18:50 | Emergency (ER) | payer OTHER, SELFPAY ==
[2017-05-28 15:21] VITALS: BMI 26.0
[2018-08-26 12:14] VITALS: BMI 27.8
[2018-09-09 18:50] VITALS: BP 143/98; PULSE 95; RESP 16; TEMP 36.4; O2SAT 99; BMI 27.3
[2018-09-09] MEDS: HYDROmorphone 1 MG/ML Syringe SC ×2 (20:16→21:51)
--- NOTE | 2018-09-09 20:40 | RAD_ITS ---
HISTORY: Status post vertebral plasty 2 weeks ago with persistent back pain XR Spine Lumbar 2 or 3 Views TECHNIQUE: 3 views # of images incl. paperwork: 3 COMPARISON: 06/14/2018 FINDINGS: Mild to moderate levoconvex scoliosis. Grade 1 spondylolisthesis of L4 upon L5 is unchanged, this anterolisthesis measures 5 mm. Interval vertebroplasty at L1 and L2. There is up to 50% loss of central height of the L1 vertebra. There is 25% loss of central height superior endplate of L2. There is 15% superior endplate loss of central height at L3. These compression fractures of L1-L3 are new when compared to June 14, 2018. L4 and L5 vertebra are satisfactory in height. Mild marginal osteophytes throughout the lumbar spine. No acute fracture or subluxation. Moderate disc space narrowing L4-L5. Remaining intervertebral disc spaces are unremarkable. No gross paravertebral soft tissue abnormalities. Surgical clips right pelvis. RAD/Lumbar Spine 2 or 3 Views IMPRESSION: 1. Interval vertebroplasty at L1 and L2. 2. Compression fractures of superior endplates of L1-L3 most pronounced at L1 with 50% loss of central height. These compression fractures are new when compared to June 14, 2018. 3. Mild to moderate levoconvex scoliosis. Grade 1 spondylolisthesis L4 upon L5. 4. Mild degenerative changes. at 2114 Reported and signed by: James Sloitario MD Electronically Signed: James Solitario MD at 21:13 EDT Tel , Service support ,
[2018-09-09 21:03] VITALS: BP 158/81; PULSE 87; RESP 16; O2SAT 96
--- NOTE | 2018-09-09 21:54 | ED.VISSUMM ---
- ER Visit Summary Date of Service: 09/09/18 Chief Complaint: Back pain History of Present Illness: The patient is a 68 F who presents with back pain. This has been going on for about 14 weeks. Worse after working in the yard. Denies any direct trauma. She has multiple compression fractures and underwent L1 and L2 kyphoplasty 2 weeks ago. She had no improvement of her symptoms. The pain feels like an electrical or shooting pain. Worse with movement. Patient saw her pain doctor. She was changed from Vicodin to Percocet. She is taking Flexeril and Mobic, but her symptoms are not improving. Patient denies any fevers or chills. Denies any skin changes. Denies any new neurologic symptoms. Denies any new GI or symptoms. Physical Examination: Afebrile and vital signs unremarkable. Alert and oriented. Patient appears uncomfortable. Patient's lower lumbar spine is tender to palpation over the midline, but the upper lumbar spine is nontender. No sign of redness or skin changes. Strength and sensation normal. Straight leg raise negative. Reflexes unremarkable. Abdomen unremarkable. Test Results: Lumbar x-rays showed a L1 and L2 kyphoplasty. She also has compression fractures from L1-L3, scoliosis, and grade 1 spondylolisthesis L4 and L5. Emergency Department Course and Treatment: Patient required multiple treatments with pain medicine. X-rays as above. Nothing to explain her continued pain. Patient has no other new or red flag symptoms. Patient is in pain management and already on pain medicine at home. She is also taking anti-inflammatories and muscle relaxers. I advised that we can admit her for pain control and if she has difficulty ambulating as this is a safety issue. Patient requested discharge. She was given an additional dose of pain medicine prior to discharge and will follow up with her pain doctor. Treatment Plan: As above Disposition: Discharge Impression: 1. Lumbar back pain This note was generated with [employer] dictation software. It may contain incorrect words, spelling, and punctuation that were not noted in review of the chart prior to signing ED Disposition - Plan for ED Patient: Referrals: Shila Dinh DO [Primary Care Provider] -
--- NOTE | 2018-09-09 21:57 | ED.DEP ---
ED Disposition - Plan for ED Patient: Instructions: BACK PAIN (Acute or Chronic) Referrals: Shila Dinh DO [Primary Care Provider] - German Macias MD [STAFF PHYSICIAN] -
[2018-09-09 22:13] VITALS: BP 179/94; PULSE 83; RESP 16; O2SAT 96
== END 2018-09-09 22:15 | disposition home or self-care (01) ==
PROVIDERS: Emergency Provider Emergency Medicine; Family Provider Internal Medicine; PCP Internal Medicine
DX: M41.9 Scoliosis, unspecified (principal); M43.16 Spondylolisthesis, lumbar region; I10 Essential (primary) hypertension; F32.9 Major depressive disorder, single episode, unspecified; F42.9 Obsessive-compulsive disorder, unspecified; Z79.899 Other long term (current) drug therapy
CPT/HCPCS: 72100; 96372; 99282

== ENCOUNTER → 2018-09-21 08:19 | Outpatient (CLI) | payer OTHER, SELFPAY ==
[2017-05-28 15:21] VITALS: BMI 26.0
[2018-09-09 18:50] VITALS: BMI 27.3
[2018-09-21 08:44] LABS: Erythrocyte Sedimentation Rate 10 mm/hr (0-30)
[2018-09-21 08:46] LABS: Hematocrit 37.2 % (37-47); Hemoglobin 12.2 g/dL (12.0-15.0); Mean Corp Hgb Conc 32.8 g/dL (32-36); Mean Corpuscular Hgb 27.7 pg (27.0-32.0); Mean Corpuscular Volume 84.5 fL (81-99); Mean Platelet Vol. 8.5 fl (6.2-12.0); Platelet Count 401 K/mm3 (150-450); RBC Distribution Width CV 13.1 % (11.6-14.6); RBC Distribution Width SD 40.4 fl (35.1-43.9); White Blood Count 7.2 K/mm3 (4.4-11.0)
[2018-09-21 09:02] LABS: PTHIN 46.1 pg/mL (18.4-80.1)
[2018-09-21 09:12] LABS: Vitamin D,25 Hydroxy 46.5 ng/mL (29.95-100.01)
[2018-09-21 09:37] LABS: AST(SGOT) 18 U/L (15-37); Alanine Aminotransfer ALT/SGPT 32 U/L (13-56); Albumin, Serum 3.5 g/dL (3.2-5.0); Alkaline Phosphatase 86 U/L (45-117); Bilirubin, Direct 0.08 mg/dL (0.00-0.30); CRP < 2.90 mg/L (0.0-3.0); Calcium,Total 8.5 mg/dL (8.5-10.1); Phosphorus 2.9 mg/dL (2.5-4.9); Protein, Total 6.5 g/dL (6.4-8.2); Thyroid Stim Hormone (TSH) 0.83 uIU/mL (0.358-3.74)
[2018-09-23 16:08] LABS: PROEL- A/G Ratio 1.4 (0.7-1.7); PROEL- Albumin 3.4 g/dL (2.9-4.4); PROEL- Alpha-1 Globulin 0.2 g/dL (0.0-0.4); PROEL- Alpha-2 Globulin 0.8 g/dL (0.4-1.0); PROEL- Beta Globulin 0.9 g/dL (0.7-1.3); PROEL- Gamma Globulin 0.6 g/dL (0.4-1.8); PROEL- Globulin, Total 2.5 g/dL (2.2-3.9); PROEL- TOTAL PROTEIN 5.9 g/dL (6.0-8.5); PROELU- Albumin, Urine 31.1 % (.); PROELU- Alpha-1-Globulin,Ur 0.3 % (.); PROELU- Alpha-2-Globulin,Ur 9.4 % (.); PROELU- Beta Globulin, Ur 41.2 % (.); PROELU- Gamma Globulin, Ur 18.1 % (.); Total Protein, Ur 4.5 mg/dL (Not Estab.)
[2018-09-24 13:25] LABS: Vitamin D 1,25-Dihydroxy 70.8 pg/mL (19.9-79.3)
== END ==
PROVIDERS: Family Provider Internal Medicine; PCP Internal Medicine; Visit Provider Nurse Practitioner
DX: M80.08XA Age-related osteoporosis with current pathological fracture, vertebra(e), initial encounter for fracture (principal)
CPT/HCPCS: 36415; 80076; 82306; 82310; 82652; 83970; 84100; 84165; 84166; 84443; 85027; 85652; 86140

== ENCOUNTER → 2018-09-26 08:36 | Outpatient (CLI) | payer OTHER, SELFPAY ==
[2017-05-28 15:21] VITALS: BMI 26.0
[2018-09-09 18:50] VITALS: BMI 27.3
[2018-09-26 09:38] LABS: (24 HR) Urine Calcium 166.4 mg/24 HR (42.0-353.0); 24HR UR TOTAL VOLUME 3200 ml; Calcium Urine pH Range 2; Urine Calcium (Random) 5.2 (Not Estab.)
== END ==
PROVIDERS: Family Provider Internal Medicine; PCP Internal Medicine; Visit Provider Internal Medicine
DX: M80.08XA Age-related osteoporosis with current pathological fracture, vertebra(e), initial encounter for fracture (principal)
CPT/HCPCS: 81050; 82340

== ENCOUNTER → 2018-09-28 09:22 | Outpatient (CLI) | payer OTHER, SELFPAY ==
[2017-05-28 15:21] VITALS: BMI 26.0
[2018-09-09 18:50] VITALS: BMI 27.3
[2018-09-28] MEDS: Romosozumab-AQQG 210 MG/2.34 ML Syringe SQ (13:00)
[2018-09-28 15:09] VITALS: BP 136/78; PULSE 89; RESP 16; TEMP 36.7; O2SAT 100; BMI 27.3
== END ==
PROVIDERS: Family Provider Internal Medicine; PCP Internal Medicine; Referring Provider Nurse Practitioner; Visit Provider Nurse Practitioner
DX: M81.0 Age-related osteoporosis without current pathological fracture (principal); S22.080A Wedge compression fracture of T11-T12 vertebra, initial encounter for closed fracture
CPT/HCPCS: 96372; J3590

== ENCOUNTER → 2018-09-30 08:08 | Outpatient (CLI) | payer OTHER, SELFPAY ==
[2017-05-28 15:21] VITALS: BMI 26.0
[2018-03-16 16:14] VITALS: BMI 28.1
[2018-09-09 18:50] VITALS: BMI 27.3
[2018-09-28 15:09] VITALS: BMI 27.3
[2018-09-30 08:15] LABS: Bacteria 0 SEEN /hpf (None Seen); Mucous, Urine 0 SEEN /hpf (<or=2+)
[2018-09-30 08:31] LABS: Absolute Neutrophil Count 3.7 X10^3/uL (2.0-7.7); Hematocrit 36.1 % (37-47); Hemoglobin 11.8 g/dL (12.0-15.0); Lymphocyte % 25.6 % (19-41); Mean Corp Hgb Conc 32.7 g/dL (32-36); Mean Corpuscular Hgb 27.4 pg (27.0-32.0); Monocyte# 0.41 X10^3/uL; Monocyte% 7.5 % (0-10); NRBC Flagged by Analyzer 0 % (0-5); Neutrophil # 3.65 X10^3/uL (2.7-7.7); Neutrophil % 66.7 % (47-70); POSITIVE MORPHOLOGY YES; Platelet Count 367 K/mm3 (150-450); RBC Distribution Width CV 13.2 % (11.6-14.6); RBC Distribution Width SD 40.1 fl (35.1-43.9); White Blood Count 5.5 K/mm3 (4.4-11.0)
[2018-09-30 08:32] LABS: Differential Indicated SCAN CRITERIA MET
[2018-09-30 08:37] LABS: Color, Urine Yellow (Yellow); Glucose, Dipstick Normal (Normal); Ketone-Dipstick 5 mg/dl (Negative); Leukocyte Esterase-Dipstick 25 /ul (Negative); Nitrite-Dipstick Negative (Negative); Occult Blood-Urine Negative /ul (Negative); Protein-Dipstick Negative (Negative); Urine Bilirubin Dipstick Negative (Negative); Urine Clarity Clear (Clear); Urine Urobilinogen Normal (Normal)
[2018-09-30 08:43] LABS: Red Blood Cells-Urine 0-5 SEEN /hpf (0-5); Squamous Epithelial Cells - UA 0-5 SEEN /hpf (5-10); White Blood Cells 0-5 SEEN /hpf (0-5)
[2018-09-30 08:57] LABS: Microalbumin,Random Urine 9.8 mg/L (NO RANGE EST.); Microalbumin:Creatinine Ratio 6.7 mg/g CRE (<30 mg/g CRE)
[2018-09-30 09:00] LABS: ALB/GLOB Ratio 1.1 RATIO (0.9-2.4); AST(SGOT) 17 U/L (15-37); Alanine Aminotransfer ALT/SGPT 27 U/L (13-56); Albumin, Serum 3.3 g/dL (3.2-5.0); Alkaline Phosphatase 85 U/L (45-117); Anion Gap 7 (5-15); BUN 16 mg/dL (7-18); BUN/Creat Ratio 26.5 RATIO (10-20); Calcium,Total 8.6 mg/dL (8.5-10.1); Chloride 103 mmol/L (98-107); EST Glomerular Filtration Rate 106 mL/min (>60); Est Glom Filt Rate - Afr Amer 128 mL/min (>60); Ferritin 16 ng/mL (8-252); Globulin 2.9 g/dL (2.2-4.2); Glucose 90 mg/dL (74-106); Iron 48 ug/dL (50-170); Iron Binding Capacity,Total 386 ug/dL (250-450); PERCENT IRON SATURATION 12.4 % (15.0-55.0); Protein, Total 6.2 g/dL (6.4-8.2); Sodium Level 137 mmol/L (136-145); Thyroid Stim Hormone (TSH) 1.06 uIU/mL (0.358-3.74)
[2018-09-30 09:46] LABS: Hemoglobin A1c 5.3 % (4.2-6.3)
[2018-10-01 14:07] LABS: CHOLESTEROL TOTAL 174 mg/dL (100-199); HDL-C 58 mg/dL (>39); HDL-P TOTAL 33.3 umol/L (>=30.5); SMALL LDL-P 287 nmol/L (<=527); TRIGLYCERIDES 88 mg/dL (0-149)
[2018-10-02 17:00] LABS: INSULIN RESISTANCE SCORE <25 (<=45); LDL SIZE 21.2 nm (>20.5); LDL-C 98 mg/dL (0-99); LDL-P 954 nmol/L (<1000)
== END ==
PROVIDERS: Family Provider Internal Medicine; PCP Internal Medicine; Visit Provider Internal Medicine
DX: R73.02 Impaired glucose tolerance (oral) (principal); D50.9 Iron deficiency anemia, unspecified
CPT/HCPCS: 36415; 80053; 80061; 81001; 82043; 82570; 82728; 83036; 83540; 83550; 83704; 84443; 85025

== ENCOUNTER → 2018-10-05 15:38 | Outpatient (CLI) | payer OTHER, SELFPAY ==
[2017-05-28 15:21] VITALS: BMI 26.0
[2018-09-09 18:50] VITALS: BMI 27.3
[2018-09-28 15:09] VITALS: BMI 27.3
--- NOTE | 2018-10-05 15:41 | MRI_ITS ---
STUDY: MRI THORACIC SPINE WITHOUT CONTRAST REASON FOR EXAM: Female, 68 years old. Mid back pain TECHNIQUE: Standardized fat and water weighted pulse sequences were obtained in the sagittal and axial planes. COMPARISON: None. FINDINGS: Exaggerated kyphoscoliosis convex towards the left. Old compression fractures of T8 and T7 with minor bulging of the discs at T6-7 and T7-8 mildly narrowing the spinal canal without cord compression. Old compression fracture of L1 and L2 status post kyphoplasty No evidence for acute fracture or subluxation at this time. Disc space heights are well-maintained although there is multilevel disc degeneration. There is mild bulging of the disc at T12-L1 without significant spinal stenosis There is no significant disc protrusion spinal stenosis or cord compression. Normal visualized thoracic cord. Normal conus medullaris that terminates at L1 The soft tissue structures are unremarkable. MRI/Spine Thoracic (Routine) IMPRESSION: No acute fracture or other significant bony pathology. Old compression fractures of T8 and T7 with minor bulging of the discs at T6-7 and T7-8 mildly narrowing the spinal canal without cord compression.. Old compression fracture of L1 and L2 status post kyphoplasty Multilevel disc degeneration without significant spinal stenosis Electronically Signed: Hossein Rudd MD at 16:42 EDT , Service support ,
== END ==
PROVIDERS: Family Provider Internal Medicine; PCP Internal Medicine; Referring Provider Orthopaedic Surgery Orthopaedic Surgery of the Spine; Visit Provider Orthopaedic Surgery Orthopaedic Surgery of the Spine
DX: M48.061 Spinal stenosis, lumbar region without neurogenic claudication (principal); S22.000A Wedge compression fracture of unspecified thoracic vertebra, initial encounter for closed fracture; S32.020A Wedge compression fracture of second lumbar vertebra, initial encounter for closed fracture
CPT/HCPCS: 72146

== ENCOUNTER → 2018-10-07 09:01 | Outpatient (CLI) | payer OTHER, SELFPAY ==
[2017-05-28 15:21] VITALS: BMI 26.0
[2018-09-28 15:09] VITALS: BMI 27.3
--- NOTE | 2018-10-07 09:03 | BI_ITS ---
MAMMOGRAPHY - BILATERAL SCREENING REASON FOR EXAM: Female, 68 years old. Routine annual screening examination. PERTINENT HISTORY: Non-contributory. TECHNIQUE: Digital bilateral breast earnest (3D mammographic acquisition) in the CC and MLO projections. 2-D mediolateral oblique (MLO) and craniocaudad (CC) views of both breasts were obtained. CAD: Full Field Digital Mammography with Computer Added Detection was performed. COMPARISON: Comparison is made with prior examination dated June 22, 2017 and April 27, 2016. FINDINGS: Breast Composition: The breasts are heterogeneously dense, which may obscure small masses. There are no dominant masses or suspicious calcifications. No other significant abnormalities are identified. There has been no significant change since the prior study. BI/SCREEN MAMM (CAD) W/EARNEST BILAT IMPRESSION: Stable bilateral screening mammogram. Yearly follow-up mammogram recommended. (A) ASSESSMENT CATEGORY: BIRADS Category 1: Negative. A letter regarding these results will be sent to the patient by the facility within 30 days. Approximately 10% of breast cancers are not detected by mammography. A normal mammogram should not delay biopsy of a clinically suspicious abnormality. [id number] Electronically Signed: Win Vizcaino, at 10:16 EDT , Service support ,
== END ==
PROVIDERS: Family Provider Internal Medicine; PCP Internal Medicine; Referring Provider Nurse Practitioner Women's Health; Visit Provider Nurse Practitioner Women's Health
DX: Z12.31 Encounter for screening mammogram for malignant neoplasm of breast (principal)
CPT/HCPCS: 77063; 77067

== ENCOUNTER → 2018-10-27 15:45 | Outpatient (CLI) | payer OTHER, SELFPAY ==
[2017-05-28 15:21] VITALS: BMI 26.0
[2018-10-25 08:15] VITALS: BMI 27.5
[2018-10-27] MEDS: Romosozumab-AQQG 210 MG/2.34 ML Syringe SQ (15:59)
[2018-10-27 16:02] VITALS: BP 124/71; PULSE 79; RESP 16; TEMP 36.6; O2SAT 98; BMI 27.2
== END ==
PROVIDERS: Family Provider Internal Medicine; PCP Internal Medicine; Referring Provider Nurse Practitioner; Visit Provider Nurse Practitioner
DX: M81.0 Age-related osteoporosis without current pathological fracture (principal); S22.080A Wedge compression fracture of T11-T12 vertebra, initial encounter for closed fracture
CPT/HCPCS: 96372; J3590

== ENCOUNTER 2018-11-05 11:32 | Emergency (ER) | payer OTHER, SELFPAY ==
[2017-05-28 15:21] VITALS: BMI 26.0
[2018-10-27 16:02] VITALS: BMI 27.2
[2018-11-05] VITALS (7 sets, daily range): BP systolic 128–154; BP diastolic 77–97; PULSE 70–79; RESP 13–18; TEMP 36.2; O2SAT 97–100; BMI 27.2
--- NOTE | 2018-11-05 12:01 | EKG12_ITS ---
Test Reason : SOB Blood Pressure : / mmHG Vent. Rate : 072 BPM Atrial Rate : 072 BPM P-R Int : 156 ms QRS Dur : 094 ms QT Int : 410 ms P-R-T Axes : 041 008 024 degrees QTc Int : 448 ms Normal sinus rhythm Minimal voltage criteria for LVH, may be normal variant Borderline ECG When compared with ECG of 27-JUL-2018 12:47, No significant change was found Confirmed by ANGELA OROZCO ([id number]), fashion editor CHRISTOPHER SALDAÑA ([id number]) on 11/22/2018 12:52:51 PM Referred By: MEHRAN Confirmed By:ANGELA OROZCO
--- NOTE | 2018-11-05 12:01 | RAD_ITS ---
STUDY: X-RAY CHEST REASON FOR EXAM: Female, 68 years old. Chest pain in the right posterior side. Shortness of breath. TECHNIQUE: AP upright portable view. COMPARISON: 07/27/2018. FINDINGS: The lungs are clear and expanded. There is no demonstrated pleural abnormality. Normal size heart. Normal mediastinum and brad. Normal visualized pulmonary arteries. Normal visualized aortic arch and descending thoracic aorta. Mild dextroscoliosis of the lower thoracic spine. PMMA casts inside the L1 and L2 vertebral bodies are from previous kyphoplasty. Normal visualized ribs, clavicles, and shoulders. There is no demonstrated abnormality of the visualized soft tissue structures of the upper abdomen. RAD/Chest 1 View (Portable) IMPRESSION: 1. No acute cardiopulmonary pathology. 2. PMMA casts inside L1 and L2 vertebral bodies from previous kyphoplasty. 3. No significant interval changes when compared to 07/27/2018. Electronically Signed: Bon Peralta MD at 13:52 EDT , Service support ,
[2018-11-05] MEDS: Aspirin 81 MG TAB.CHEW 324 MG PO (12:13)
--- NOTE | 2018-11-05 12:19 | ED.VIS.CHEST ---
History of Present Illness Informant: Patient Onset: Yesterday Activity at onset: Exertion, Light Activity Timing: Intermittent Quality: Sharp, Stabbing Location: Right Chest Current Severity: Moderate Maximum Severity: Moderate Worsened By: Exertion, Breathing Relieved By: Nothing Associated Symptoms: Dyspnea Narrative: 68-year-old female with a history of osteoporosis presents to the emergency department with right-sided chest pain and shortness of breath. Symptoms began yesterday evening. They began when she was walking around her neighborhood. She is having sharp type pain in the right side of her chest that radiates to her right posterior thoracic back. She states that she has had pleuritic pain this morning. She has not been gasping for air. She is not lightheaded or dizzy. She denies any recent travel or surgery. She denies any history of PE or DVT. Denies any history of coronary artery disease. Recently started on a new monthly injection for osteoporosis and she states that this increases her risk for a blood clot which is her main concern today. Prior Similar Symptoms: No Recent Illness/Hospitalization: No PE Risk Factors: - - current use of new hormone therapy for osteoporosis. Negative for: Recent Travel/Surgery, Recenet Immobilization, Prior DVT or PE, Cancer, OCP + Smoking + >/=35 <Grupo Zamudio - Last Filed: 11/05/18 15:22> <Bal Walters - Last Filed: 11/05/18 17:23> Chief Complaint: Shortness of Breath Past Medical History Prior records reviewed: Yes Past Medical History: - - osteoporosos, FREDY Surgical History: noncontributory Lives: With Family Smoking Status: Never smoker <Grupo Zamudio - Last Filed: 11/05/18 15:22> <Bal Walters - Last Filed: 11/05/18 17:23> - Allergies and Home Meds Allergies/Adverse Reactions: Allergies No Known Allergies Allergy (Verified 11/05/18 11:37) Primary Care Physician: Shila Dinh DO [Primary Care Provider] - 3-5 Days if not improving Review of Systems All systems negative except as indicated General: Denies: Chills, Fever Cardiovascular: Reports: Chest pain Respiratory: Reports: Dyspnea, Dyspnea on exertion <Grupo Zamudio - Last Filed: 11/05/18 15:22> Physical Exam Vital Signs/Narrative: Vital Signs Temp Pulse Resp BP Pulse Ox 11/05/18 12:15 100 11/05/18 11:58 97.1 F L 11/05/18 11:34 97.1 F L 75 18 154/97 H 100 Inital Vital Signs reviewed: Yes General: Well nourished, Well developed, No Acute Distress Head: Normocephalic, Atraumatic Eyes: Perrl, EOMI ENT: Moist mucous membranes Neck: Supple, Nontender Cardiovascular: Regular rate, Regular rhythm Respiratory: No distress, CTA bilaterally, Chest nontender Abdomen: Soft, Nontender, Nondistended, Normal bowel sounds, No masses Back: Nontender, Normal Inspection Extremities: Nontender, No edema Skin: Normal color, No rash Neurological: Alert, Oriented x3 Psychological: Normal affect <Grupo Zamudio - Last Filed: 11/05/18 15:22> Vital Signs/Narrative: Vital Signs Pulse Resp BP Pulse Ox 11/05/18 15:39 79 18 138/78 H 97 11/05/18 13:54 70 13 128/77 H 97 11/05/18 12:15 100 <Bal Walters - Last Filed: 11/05/18 17:23> Diagnostic/Tx/Re-eval Chest X-Ray - ED: 1 View, Read by ED Physician, Read by Radiologist, No Acute Disease - Rhythm Strip Rhythm Strip: Sinus Rhythm Rate: 72 Ectopy: None - EKG Initial EKG Interpretation: Sinus Rhythm, No Acute Injury Pattern Prior: Unchanged - Medical Decision Making EKG was sinus rhythm rate of [address] segment or T wave changes with normal intervals and no ectopy. We obtained a work-up, CBC BMP unremarkable. Troponin negative. D-dimer was elevated. Because of this, we did obtain CT scan to rule out a pulmonary embolism. This was negative. It did show small thoracic aneurysmal dilation recommend follow-up in 12 months. Patient was informed of findings. Pain is likely secondary to her compression fractures. Heart score calculated at 3. She is already on pain medicine for this. She will continue that. She will follow-up with her doctor. She was agreeable with plan all questions answered she will was given return precautions advised to follow-up for her aneurysm and discharged home. <Grupo Zamudio - Last Filed: 11/05/18 15:22> - Medical Decision Making I supervised the PA and have performed my own pertinent history and physical. Results and treatment plan were discussed. HPI: Patient reports that she has right-sided back and chest pain that began yesterday. It is a constant pain. It is worsened by deep breaths. It is unchanged with exertion. She is worried that she may have a PE. PE: Cardiovascular: Regular rate and rhythm with no murmur. Respiratory: No respiratory distress. Clear to auscultation bilaterally. Back: Mild tenderness palpation over the mid ribs on the right. No rash to suggest shingles. Emergency Department course: Patient resting comfortably. She refused pain medications. EKG, troponin, and CTA of the chest were all negative. The CT of her chest did show a number of incidental findings. I discussed the thyroid nodule and the aneurysm with her. She was given a copy of her CT and follow-up instructions. Treatment Plan: Patient be discharged symptomatic care. [place] her primary care physician in 3 to 5 days if not improving. Return to the emergency department for any worsening symptoms. This note was generated with [employer] dictation software. It may contain incorrect words, spelling, and punctuation that were not noted in review of the chart prior to signing. <Bal Walters - Last Filed: 11/05/18 17:23> ED Disposition <Grupo Zamudio - Last Filed: 11/05/18 15:22> <Bal Walters - Last Filed: 11/05/18 17:23> - Plan for ED Patient: Disposition: Home or Assisted Living Diagnosis: Compression fracture of body of thoracic vertebra, Chest pain Instructions: BACK SPASM, No Trauma Referrals: Shila Dinh, [Primary Care Provider] - 3-5 Days if not improving
[2018-11-05 12:29] LABS: Absolute Lymphocyte Count 1.14 X10^3/uL (0.83-4.51); Absolute Neutrophil Count 5.2 X10^3/uL (2.0-7.7); Hemoglobin 12.3 g/dL (12.0-15.0); Lymphocyte # 1.14 X10^3/ul (4.0); Lymphocyte % 16.7 % (19-41); Mean Corp Hgb Conc 32.4 g/dL (32-36); Mean Corpuscular Hgb 27.5 pg (27.0-32.0); Mean Platelet Vol. 9.1 fl (6.2-12.0); Monocyte% 7.3 % (0-10); NRBC Flagged by Analyzer 0 % (0-5); Neutrophil # 5.19 X10^3/uL (2.7-7.7); Neutrophil % 75.9 % (47-70); Platelet Count 365 K/mm3 (150-450); RBC Distribution Width CV 13.3 % (11.6-14.6); RBC Distribution Width SD 41.1 fl (35.1-43.9); Red Blood Count 4.47 M/mm3 (4.2-5.4); White Blood Count 6.8 K/mm3 (4.4-11.0)
[2018-11-05 12:46] LABS: Anion Gap 5 (5-15); BUN 15 mg/dL (7-18); BUN/Creat Ratio 22.2 RATIO (10-20); Calcium,Total 8.7 mg/dL (8.5-10.1); Chloride 106 mmol/L (98-107); Creatinine, Serum 0.68 mg/dL (0.55-1.02); EST Glomerular Filtration Rate 93 mL/min (>60); Est Glom Filt Rate - Afr Amer 112 mL/min (>60); Estimated Creatinine Clearance 55.82 ml/min; Glucose 102 mg/dL (74-106); Potassium 3.9 mmol/L (3.5-5.1); Sodium Level 138 mmol/L (136-145)
[2018-11-05 12:49] LABS: D-Dimer Quantitative (DVT/PE) 0.63 FEU/ug/m (0.27-0.49)
--- NOTE | 2018-11-05 12:50 | CT_ITS ---
STUDY: CTA CHEST REASON FOR EXAM: Female, 68 years old. Shortness of breath elevated d-dimer recent travel RADIATION DOSAGE (If Supplied By Facility): CTDIvol = ( 9.66 ) mGy, DLP = ( 409.44 ) mGycm TECHNIQUE: The examination was performed with the intravenous administration of 100 IV Isovue 370. Post-processing of the angiographic images was performed, with multiplanar reformation and 3D reconstruction. Individualized dose optimization techniques were used for this CT. COMPARISON: October 05, 2018 MRI thoracic spine. FINDINGS: There is a well-circumscribed cyst in the left thyroid measuring 1.2 cm. Normal enhancement of the main pulmonary artery and right and left pulmonary arteries. Normal enhancement of the bilateral peripheral pulmonary arteries. There is no demonstrated pulmonary embolism. The ascending thoracic aorta measures 3.5 x 3.3 cm. The descending thoracic aorta measures 2.1 x 2.2 cm. There is no demonstrated aortic dissection. Normal heart and pericardium. Normal mediastinum. Normal hilar regions. Normal visualized trachea and bronchi. The lungs appear somewhat hyperinflated. Normal pulmonary parenchyma. Normal pleura. Normal chest wall structures. There is a 50% there is chronic appearing loss of height at T11 similar to prior study. Loss of height at the level of T7 and T8. There is kyphoplasty at L1 and L2 partially visualized. The liver appears enlarged. CT/CTA Chest W/WO Contrast IMPRESSION: No pulmonary embolism, no aortic dissection. Borderline aneurysmal dilatation of the ascending thoracic aorta at 3.5 cm recommend serial follow-up in 12 months. Nonspecific hyperinflation of the lungs Moderate hepatomegaly. Chronic appearing compression injuries of the thoracic vertebral bodies as detailed above. Well-circumscribed cyst left thyroid recommend follow-up ultrasound when appropriate. Electronically Signed: Coleen Haji MD at 15:17 EDT Tel , Service support ,
== END 2018-11-05 16:17 | disposition home or self-care (01) ==
PROVIDERS: Emergency Provider Physician Assistant Medical; Family Provider Internal Medicine; PCP Internal Medicine
DX: M48.54XA Collapsed vertebra, not elsewhere classified, thoracic region, initial encounter for fracture (principal); R07.89 Other chest pain; R79.89 Other specified abnormal findings of blood chemistry; E04.1 Nontoxic single thyroid nodule; I71.2 Thoracic aortic aneurysm, without rupture; M81.0 Age-related osteoporosis without current pathological fracture; G47.33 Obstructive sleep apnea (adult) (pediatric); Z79.899 Other long term (current) drug therapy
CPT/HCPCS: 71045; 71275; 80048; 84484; 85025; 85379; 93005; 99285; Q9967; A4216

== ENCOUNTER → 2018-11-11 08:41 | Outpatient (CLI) | payer OTHER, SELFPAY ==
[2017-05-28 15:21] VITALS: BMI 26.0
[2018-11-05 11:34] VITALS: BMI 27.2
[2018-11-11 09:26] LABS: Free T3 2.4 pg/mL (2.18-3.98); T4 Free Direct 0.99 ng/dL (0.76-1.46); Thyroid Stim Hormone (TSH) 1.54 uIU/mL (0.358-3.74)
== END ==
PROVIDERS: Family Provider Internal Medicine; PCP Internal Medicine; Visit Provider Internal Medicine
DX: E04.1 Nontoxic single thyroid nodule (principal)
CPT/HCPCS: 36415; 84439; 84443; 84481

== ENCOUNTER → 2018-11-16 10:59 | Outpatient (CLI) | payer OTHER, SELFPAY ==
[2017-05-28 15:21] VITALS: BMI 26.0
[2018-11-05 11:34] VITALS: BMI 27.2
--- NOTE | 2018-11-16 11:00 | US_ITS ---
STUDY: THYROID ULTRASOUND REASON FOR EXAM: Female, 68 years old. Cyst in the left thyroid lobe on CTA chest. Follow-up. TECHNIQUE: Ultrasound evaluation of the thyroid was performed with real-time and static betancourt-scale imaging. COMPARISON: CTA chest 11/05/2018. FINDINGS: RIGHT LOBE: The right lobe of the thyroid gland measures 4.4 x 1.5 x 1.4 cm. There is heterogeneous echotexture. There are multiple hypodense cysts. The dominant cyst is in the lower pole measuring 0.8 x 0.9 x 0.7 cm. Solid anechoic nodule measuring 0.8 x 0.5 x 0.5 cm.. LEFT LOBE: The left lobe of the thyroid gland measures 4.6 x 1.6 x 1.9 cm. There is a heterogeneous echotexture.. Multiple small cysts in the left thyroid lobe. 2 solid nodules measuring 1.2 x 1.3 x 1.0 cm and 0.8 x 0.6 cm. Small but dominant anechoic cyst measuring 1.3 x 1.1 x 0.9 cm. ISTHMUS: The isthmus measures 1.0 x 1.0 x 0.4 cm solid isthmus nodule. The isthmus measures 3.0 mm. . US/Thyroid IMPRESSION: 1. Multiple small cysts in the right thyroid lobe and a solid nodule measuring 0.8 x 0.5 x 0.5 cm. 2. Multiple small cysts in the left thyroid lobe. The dominant cyst measures 1.3 x 1.1 x 0.9 cm. This is feasible for ultrasound-guided FNA. 3. Solid nodules in the left thyroid lobe measuring 1.2 x 1.3 x 1.0 cm and 0.6 cm respectively. These are feasible for ultrasound-guided FNA. 4. Solid nodule in the thyroid isthmus measuring 1.0 x 1.0 x 0.4 cm. This is feasible for ultrasound-guided FNA. Electronically Signed: Bon Peralta MD at 11:20 EDT , Service support ,
== END ==
PROVIDERS: Family Provider Internal Medicine; PCP Internal Medicine; Referring Provider Internal Medicine; Visit Provider Internal Medicine
DX: E04.1 Nontoxic single thyroid nodule (principal)
CPT/HCPCS: 76536

== ENCOUNTER → 2018-12-07 16:15 | Outpatient (CLI) | payer OTHER, SELFPAY ==
[2017-05-28 15:21] VITALS: BMI 26.0
[2018-12-07 13:43] VITALS: BMI 27.2
--- NOTE | 2018-12-07 13:50 | ASPS_PTH ---
PATIENT: TORIBIO YAO LOC: [facility] U#:[id number] AGE/SX: 74/F ROOM: RE12/07/[address]: Dr. Damian Hoffmann MD : [id number] BED: DIS: SPEC #: [id number] RECD: 12/07/18 16:14 STATUS: MARY TANYA #: [id number] STONE: 12/07/18 13:[address]: Damian Hoffmann DEPT: CYTOLOGY RECD BY: Carlos Garcia ENTERED: 12/08/18 07:59 SP TYPE: ASPIRATION OTHR DR: Dr. Shila Dinh, Tissues: Thyroid gland, NOS Procedures: Special Stain Group II Cytology Other HEADER OPERATION: Right thyroid FNA PRE-OP DIAGNOSIS: Right thyroid nodule TISSUE SUBMITTED: Right thyroid slides DIAGNOSIS CYTOLOGY Fine needle aspiration, right thyroid nodule (smears): Adequate for evaluation. Negative, consistent with benign follicular nodule. AM:roberto 10/4/19 CYTOLOGY STUDY Slides are reviewed. CYTOLOGY GROSS Received are six smears labeled with the patient's name and designated per the requisition as right thyroid. Submitted for staining. / roberto 12/08/18 TC:5 [facility]: [id number]
== END ==
PROVIDERS: Family Provider Internal Medicine; PCP Internal Medicine; Referring Provider Surgery; Visit Provider Surgery
DX: E04.1 Nontoxic single thyroid nodule (principal)
CPT/HCPCS: 88161; 88313

== ENCOUNTER → 2018-12-08 11:21 | Outpatient (CLI) | payer OTHER, SELFPAY ==
[2017-05-28 15:21] VITALS: BMI 26.0
[2018-10-21 06:49] VITALS: BMI 27.3
[2018-12-07 13:43] VITALS: BMI 27.2
[2018-12-08 11:37] LABS: Absolute Lymphocyte Count 1.29 X10^3/uL (0.83-4.51); Absolute Neutrophil Count 4.1 X10^3/uL (2.0-7.7); Hematocrit 38.2 % (37-47); Hemoglobin 12.3 g/dL (12.0-15.0); Lymphocyte # 1.29 X10^3/ul (4.0); Lymphocyte % 21.5 % (19-41); Mean Corp Hgb Conc 32.2 g/dL (32-36); Mean Corpuscular Hgb 27.5 pg (27.0-32.0); Mean Corpuscular Volume 85.3 fL (81-99); Mean Platelet Vol. 8.8 fl (6.2-12.0); Monocyte# 0.58 X10^3/uL; Monocyte% 9.7 % (0-10); NRBC Flagged by Analyzer 0 % (0-5); Neutrophil # 4.12 X10^3/uL (2.7-7.7); Neutrophil % 68.6 % (47-70); Platelet Count 335 K/mm3 (150-450); RBC Distribution Width CV 12.9 % (11.6-14.6); RBC Distribution Width SD 40.2 fl (35.1-43.9); Red Blood Count 4.48 M/mm3 (4.2-5.4)
[2018-12-08 11:54] LABS: Ferritin 22 ng/mL (8-252); Iron 64 ug/dL (50-170); Iron Binding Capacity,Total 400 ug/dL (250-450)
== END ==
PROVIDERS: Family Provider Internal Medicine; PCP Internal Medicine; Visit Provider Internal Medicine
DX: D50.9 Iron deficiency anemia, unspecified (principal)
CPT/HCPCS: 36415; 82728; 83540; 83550; 85025

== ENCOUNTER → 2018-12-08 14:26 | Outpatient (CLI) | payer OTHER, SELFPAY ==
[2017-05-28 15:21] VITALS: BMI 26.0
[2018-11-28 11:36] VITALS: BMI 27.2
[2018-12-07 13:43] VITALS: BMI 27.2
[2018-12-08 13:45] VITALS: BP 134/83; PULSE 76; RESP 16; TEMP 36.8; O2SAT 98; BMI 27.2
[2018-12-08] MEDS: Romosozumab-AQQG 210 MG/2.34 ML Syringe SQ (13:52)
== END ==
PROVIDERS: Family Provider Internal Medicine; PCP Internal Medicine; Referring Provider Nurse Practitioner; Visit Provider Nurse Practitioner
DX: M81.0 Age-related osteoporosis without current pathological fracture (principal); S22.080A Wedge compression fracture of T11-T12 vertebra, initial encounter for closed fracture
CPT/HCPCS: 96372; J3111

== ENCOUNTER → 2018-12-30 10:22 | Outpatient (CLI) | payer OTHER, SELFPAY ==
[2017-05-28 15:21] VITALS: BMI 26.0
[2018-12-30 09:03] VITALS: BMI 27.6
[2018-12-30 11:34] LABS: PTHIN 48.4 pg/mL (18.4-80.1); Vitamin D,25 Hydroxy 40.4 ng/mL (29.95-100.01)
[2019-01-02 10:24] LABS: Thyroid Peroxidase AB 9 IU/mL (0-34)
== END ==
PROVIDERS: Family Provider Internal Medicine; PCP Internal Medicine; Referring Provider Internal Medicine Endocrinology, Diabetes & Metabolism; Visit Provider Internal Medicine Endocrinology, Diabetes & Metabolism
DX: M81.0 Age-related osteoporosis without current pathological fracture (principal); E04.2 Nontoxic multinodular goiter; E55.9 Vitamin D deficiency, unspecified
CPT/HCPCS: 36415; 82306; 83970; 86376

== ENCOUNTER → 2019-01-05 16:01 | Outpatient (CLI) | payer OTHER, SELFPAY ==
[2017-05-28 15:21] VITALS: BMI 26.0
[2019-01-05 07:56] VITALS: BMI 27.6
[2019-01-05] MEDS: Romosozumab-AQQG 210 MG/2.34 ML Syringe SQ (15:48)
[2019-01-05 16:00] VITALS: BP 152/80; PULSE 71; O2SAT 98; BMI 27.6
== END ==
PROVIDERS: Family Provider Internal Medicine; PCP Internal Medicine; Referring Provider Nurse Practitioner; Visit Provider Nurse Practitioner
DX: M81.0 Age-related osteoporosis without current pathological fracture (principal); S22.080A Wedge compression fracture of T11-T12 vertebra, initial encounter for closed fracture
CPT/HCPCS: 96372; J3111

== ENCOUNTER 2019-02-24 12:15 | Outpatient (RCR) | payer OTHER, SELFPAY ==
[2017-05-28 15:21] VITALS: BMI 26.0
[2018-06-09 12:20] VITALS: BMI 28.5
--- NOTE | 2018-07-11 16:24 | MASS.EVAL ---
Massage Therapy Evaluation: Initial Evaluation Date: 06/21/2018 SUBJECTIVE: Annie is a 67 year old female who was referred to the [facility] for a massotherapy evaluation by Dr. Dinh with the diagnosis of low back pain and spasms. Annie presents today with the symptoms of tension and pain in low back. She states that her pain is so awful that she is unable to do daily activities. She reports having minimal improvement with exercise and stretching. OBJECTIVE: Upon observation Annie has some posture issues with her head and shoulders forward from the neutral position in sitting and standing. After examination and palpation I found Nini to have high muscle tension with tenderness and myofascial restrictions in her trapezius, rhomboids, scalenes, and thoracic paraspinals. Her QL?s, lumbar paraspinals, piriformis, glute medius and minimus all were very tight with fascial restrictions, tender points and trigger points. The first treatment consisted of a one hour massage to her back with myofascial release, muscle stripping, trigger point compression techniques, and lumbar manual traction. ASSESSMENT: I feel that Annie is a good candidate for massotherapy at this time. She had a favorable response to the first treatment with reduction in her muscle aches, pain and tension. PLAN: The plan of care was reviewed with the patient. The patient is to be seen on an as needed basis for a total of ten sessions with the recommendation of once every month for a one hour treatment. Melinda Orlando LMT
--- NOTE | 2019-02-27 12:50 | MASS.DISCH ---
Massage Therapy Discharge Summary: Discharge Date: 02/27/2019 Annie was seen for a massotherapy evaluation on 06/21/2018 with the diagnosis of low back pain. She was treated with three sessions of massage therapy consisting of moderate to deep pressure soft tissue techniques, myofascial release and trigger point compression to her cervical, thoracic, lower back, upper extremities, lower extremities and hips. Annie responded well to the therapy by reporting decreased tension and pain throughout her head, neck, shoulders, lower back and hips. Her goals for therapy were met throughout the treatment sessions. At this time this patient is being discharged from our care at [facility] facility.
== END 2019-02-24 19:00 | disposition home or self-care (01) ==
LOC: MASS 12:15
PROVIDERS: Family Provider Internal Medicine; PCP Internal Medicine; Referring Provider Internal Medicine; Visit Provider Internal Medicine
DX: M54.5 Low back pain (principal); M62.838 Other muscle spasm; M54.9 Dorsalgia, unspecified
CPT/HCPCS: 97124

== ENCOUNTER → 2019-03-17 10:38 | Outpatient (CLI) | payer OTHER, SELFPAY ==
[2017-05-28 15:21] VITALS: BMI 26.0
[2019-01-05 16:00] VITALS: BMI 27.6
[2019-03-17 10:39] VITALS: BP 129/67; PULSE 74; RESP 18; TEMP 36.6; O2SAT 66; BMI 27.2
[2019-03-17] MEDS: Romosozumab-AQQG 210 MG/2.34 ML Syringe SQ (10:55)
== END ==
LOC: MEDOUTP 10:38 → PAVLAB 10:38 → MEDOUTP 10:45
PROVIDERS: Family Provider Internal Medicine; PCP Internal Medicine; Visit Provider Nurse Practitioner
DX: M81.0 Age-related osteoporosis without current pathological fracture (principal); S22.080A Wedge compression fracture of T11-T12 vertebra, initial encounter for closed fracture
CPT/HCPCS: 96372; J3111

== ENCOUNTER 2019-04-05 12:00 | Outpatient (RCR) | payer OTHER, SELFPAY ==
[2017-05-28 15:21] VITALS: BMI 26.0
[2018-10-27 16:02] VITALS: BMI 27.2
[2018-11-05 11:34] VITALS: BMI 27.2
--- NOTE | 2018-11-15 10:59 | HP.PTEVAL ---
Patient's Visit Information TORIBIO YAO is a 68 year old F referred to Physical Therapy by RHEA Cook with a diagnosis of LBP. Date of Evaluation: 11/15/18 Physical Therapist: PUMA Torres - Visit Plan Frequency: 2x /Week Duration: 2 Months Plan: 2X/ week for 4 weeks for core and thoracic and postural strengthening, LE strength, thoracic and lumbar stretching in more of a neutral spine position with HEP - Subjective Findings: June 03, 2018..... pt has osteoporosis and has been taking injections for 2 years. The night before she was out in the yard and picking up sticks. Then the pain started the next day and did PT but was too painful and then did MRI and it showed L1 and L2 fractured and 3 in the thoracic. She saw Dr Macias and then referred to Dr You. 2 kyphoplaty on L1 and L2 but not the area is better. The stenosis in lower back hurts and the thoracic bothers her now. The spine [facility] at [facility] d/c due to the spine is healed. Still seeing Dr Macias... not sure what his plan is. He has had 2 epidurals because they only last a day or so. She has been sitting since June 03 and thinks that why her ribs are hurting so much. She was just able to turn over in bed about 2 months ago and was laying on her R side only until then. Her pain is more tolerable compared to a few months ago. No leg pain and she has periodic pubic numbness.... Points to T8-T12 for area of pain and wraps around to her ribs. She does have a brace from Dr Macias... but more in pain after wearing it. She tries to pull shoulders back. She has a lot of sitting at her job. - Pain thoracic pain Pain Intensity (Out of 10): 5 Rib pain Pain Intensity (Out of 10): 4 LBP Pain Intensity (Out of 10): 2 - Objective Gait: Walks with short stride, decreased picking up feet with gait, no trunk motion. Trunk AROM: flexion 75%, Ext to neutral, SB B 75%, Rot B 25%. LE MMT: B Hip flex 4-/5, B Knee ext 4/5, B Knee flex B 4-/5, B hip abd 3+/5, B hip ext 3-/5. Patellar Reflexes: 0/3. Attempted towel roll under spine along spine to stretch out thoracic... felt ok... maybe made her a little sore - Goals Goal 1:: I HEP Goal Time Frame: 4-6 Weeks Goal 2:: Decrease pain by 50% after a day at work (At time of eval: thoracic 5/10, Rib 4/10, Back 2/10 pain) Goal Time Frame: 4-6 Weeks Goal 3:: Walk with bigger strides and picking up feet with gait Goal Time Frame: 4-6 Weeks Goal 4:: Increase LE strength by 1/2 muscle grade ( LE MMT: B Hip flex 4-/5, B Knee ext 4/5, B Knee flex B 4-/5, B hip abd 3+/5, B hip ext 3-/5) Goal Time Frame: 4-6 Weeks - Rehabilitation Potential Rehabilitation Potential: Good - Anticipated Interventions Patient/Client Instruction: Educate patient on: Plan of Care For the Purpose of:: To decrease pain, To increase ROM, To improve nutrient delivery to tissue, To improve muscle performance and motor function, To improve ability to perform ADL's, To increase tolerance to activity/condition/position, To improve performance and independence with ADL's, To decrease level of supervision to perform tasks, To improve ability of physical actions for home/community/work/leisure, To improve gait and locomotor functions, To improve health of tissue, To increase flexibility/ROM Therapeutic Exercise to Include: Strength training, Postural training, Gait and locomotor training, Passive ROM, Active ROM, Dynamic Lumbar Stabilization, Scapular Strength/Stabilization For the Purpose of:: To decrease pain, To increase ROM, To improve nutrient delivery to tissue, To improve muscle performance and motor function, To improve ability to perform ADL's, To increase tolerance to activity/condition/position, To improve performance and independence with ADL's, To decrease level of supervision to perform tasks, To improve ability of physical actions for home/community/work/leisure, To improve gait and locomotor functions, To improve health of tissue Functional Training to Include: Gait training For the Purpose of:: To improve gait and locomotor functions Thank you for the opportunity to evaluate your patient. For Medicare and Medicare HMO plans, please review the plan of care and approve it. It will need to be FAXED BACK to us at [phone] for Medicare purposes. For Medicare only, by signing this I certify the plan of care. Please let me know if there are questions or concerns regarding this plan of care. Physician Signature: Date:
--- NOTE | 2018-11-22 09:31 | HP.PTREVAL_ITS ---
Penny Shukla, TOWER CRANE OPERATOR-C, It has been my pleasure to treat TORIBIO YAO over the last 3 visits for LBP. Please see the progress note below for an update on the physical therapy plan of care! Subjective: Last night when she was turning over she felt like she was almost going backwards. She said that she did not have pain till 4 or 5 that night after last time. Pt reports that she is sore and stiff today. Objective/Function: Pt is still slow and guarded with turning over on the mat table and when initiating exercises. Plan Plan: Start to give HEP if pt did ok after todays session. 2X/ week for 4 weeks for core and thoracic and postural strengthening, LE strength, thoracic and lum bar stretching in more of a neutral spine position with HEP Goals Goal 1:: I HEP Goal Time Frame: 4-6 Weeks Goal 2:: Decrease pain by 50% after a day at work (At time of eval: thoracic 5/10, Rib 4/10, Back 2/10 pain) Goal Time Frame: 4-6 Weeks Goal 3:: Walk with bigger strides and picking up feet with gait Goal Time Frame: 4-6 Weeks Goal 4:: Increase LE strength by 1/2 muscle grade ( LE MMT: B Hip flex 4-/5, B Knee ext 4/5, B Knee flex B 4-/5, B hip abd 3+/5, B hip ext 3-/5) Goal Time Frame: 4-6 Weeks Anticipated Interventions Patient/Client Instruction: Educate patient on: Plan of Care For the Purpose of:: To decrease pain, To increase ROM, To improve nutrient delivery to tissue, To improve muscle performance and motor function, To improve ability to perform ADL's, To increase tolerance to activity/condition/position, To improve performance and independence with ADL's, To decrease level of supervision to perform tasks, To improve ability of physical actions for home/community/work/leisure, To improve gait and locomotor functions, To improve health of tissue, To increase flexibility/ROM Therapeutic Exercise to Include: Strength training, Postural training, Gait and locomotor training, Passive ROM, Active ROM, Dynamic Lumbar Stabilization, Scapular Strength/Stabilization For the Purpose of:: To decrease pain, To increase ROM, To improve nutrient delivery to tissue, To improve muscle performance and motor function, To improve ability to perform ADL's, To increase tolerance to activity/condition/position, To improve performance and independence with ADL's, To decrease level of supervision to perform tasks, To improve ability of physical actions for home/community/work/leisure, To improve gait and locomotor functions, To improve health of tissue Functional Training to Include: Gait training For the Purpose of:: To improve gait and locomotor functions Please do not hesitate to contact me at [phone] by phone or if you have questions or concerns regarding this new plan of care! Sincerely, Ayla Tovar, MPT
--- NOTE | 2019-04-05 13:59 | HP.PTDCSUM ---
HP - PT D/C Summary It has been my pleasure to treat TORIBIO YAO under orders from Penny Shukla, SHANE-C, for the diagnosis of LBP for a total of 29 visit(s). Discharge Date: 04/05/19 Please see the following information for a summary of their discharge status. - Subjective Subjective: Pt feels that she has turned a corner. SHe feels that the posture brace she ordered has helped. She is doing some exercises but not consistently. - Pain thoracic pain Pain Intensity (Out of 10): 2 Rib pain Pain Intensity (Out of 10): 2 LBP Pain Intensity (Out of 10): 2 LE soreness Pain Intensity (Out of 10): 1 - Overall Improvement % Improvement: 75 - Objective Objective/Function: Pt seems to have better posture today with her posture brace on. - Goals Goal 1:: I HEP Goal Progress: Goal Met Goal 2:: Decrease pain by 50% after a day at work (At time of eval: thoracic 5/10, Rib 4/10, Back 2/10 pain) Goal Progress: Progressing Goal 3:: Walk with bigger strides and picking up feet with gait Goal Progress: Goal Met Goal 4:: Increase LE strength by 1/2 muscle grade ( LE MMT: B Hip flex 4-/5, B Knee ext 4/5, B Knee flex B 4-/5, B hip abd 3+/5, B hip ext 3-/5) - Plan Plan: DC PT - D/C Information Discharge Comments: DC PT to Health and wellness routine and HEP If there are questions or concerns regarding this patient's physical therapy, please feel free to call me at [phone]. Thank you for the referral of this patient. Sincerely, Ayla Tovar, MPT
== END 2019-04-05 19:00 | disposition home or self-care (01) ==
LOC: PT 12:00
PROVIDERS: Family Provider Internal Medicine; PCP Internal Medicine; Referring Provider Nurse Practitioner; Visit Provider Nurse Practitioner
DX: M54.5 Low back pain (principal)
CPT/HCPCS: 97110; 97162

== ENCOUNTER → 2019-04-27 14:56 | Outpatient (CLI) | payer OTHER, SELFPAY ==
[2017-05-28 15:21] VITALS: BMI 26.0
[2019-03-17 10:39] VITALS: BMI 27.2
[2019-04-27 15:00] VITALS: BP 133/81; PULSE 70; RESP 16; TEMP 36.9; O2SAT 98; BMI 27.2
[2019-04-27] MEDS: Romosozumab-AQQG 210 MG/2.34 ML Syringe SQ (15:07)
== END ==
PROVIDERS: PCP Internal Medicine; Referring Provider Nurse Practitioner; Visit Provider Nurse Practitioner
DX: S22.080A Wedge compression fracture of T11-T12 vertebra, initial encounter for closed fracture (principal); M81.0 Age-related osteoporosis without current pathological fracture
CPT/HCPCS: 96372; J3111

== ENCOUNTER → 2019-05-25 15:10 | Outpatient (CLI) | payer OTHER, SELFPAY ==
[2017-05-28 15:21] VITALS: BMI 26.0
[2019-04-27 15:00] VITALS: BMI 27.2
[2019-05-25 15:18] VITALS: BP 143/74; PULSE 65; RESP 16; TEMP 36.6; O2SAT 98; BMI 27.2
[2019-05-25] MEDS: Romosozumab-AQQG 210 MG/2.34 ML Syringe SQ (15:21)
== END ==
PROVIDERS: PCP Internal Medicine; Referring Provider Nurse Practitioner; Visit Provider Nurse Practitioner
DX: S22.080A Wedge compression fracture of T11-T12 vertebra, initial encounter for closed fracture (principal); M81.0 Age-related osteoporosis without current pathological fracture
CPT/HCPCS: 96372; J3111

== ENCOUNTER → 2019-06-06 11:18 | Outpatient (CLI) | payer OTHER, SELFPAY ==
[2017-05-28 15:21] VITALS: BMI 26.0
[2019-05-25 15:18] VITALS: BMI 27.2
--- NOTE | 2019-06-06 11:21 | RAD_ITS ---
STUDY: X-RAY - LEFT FOOT CLINICAL: Female, 68 years old. Lateral foot pain primarily around 5 mtp area TECHNIQUE: 3 view(s) of the foot. COMPARISON: None. FINDINGS: Normal talus, calcaneus, and tarsal bones. Normal visualized subtalar, talonavicular, calcaneocuboid, tarsal and tarsometatarsal articulations. Normal metatarsi. There is degenerative arthrosis of the metatarsophalangeal joint of the hallux . Normal tibial and fibular sesamoid bones. Normal interphalangeal joint of the great toe. Normal phalanges of the great toe. Normal second through fifth metatarsophalangeal joints. Normal interphalangeal joints and phalanges of the lesser toes. The soft tissue structures are unremarkable. RAD/Foot min 3 Views IMPRESSION: Mild arthrosis of the first metatarsophalangeal joint. Electronically Signed: Win Vizcaino, at 13:50 EDT , Service support ,
--- NOTE | 2019-06-06 11:21 | RAD_ITS ---
STUDY: X-RAY - RIGHT KNEE REASON FOR EXAM: Female, 68 years old. Bilateral knee pain TECHNIQUE: 4 view(s) of the knee. COMPARISON: None. FINDINGS: Normal visualized distal femur. Normal visualized proximal tibia and fibula. Normal proximal tibiofibular articulation. There is mild degenerative arthrosis of the medial femorotibial compartment. Normal lateral femorotibial compartment. Normal patellofemoral articulation. The soft tissue structures are unremarkable. RAD/Knee 4 or More Views IMPRESSION: Degenerative arthrosis. Electronically Signed: Win Vizcaino, at 13:32 EDT , Service support ,
--- NOTE | 2019-06-06 11:21 | RAD_ITS ---
STUDY: X-RAY - RIGHT FOOT CLINICAL: Female, 68 years old. Lateral foot pain TECHNIQUE: 3 view(s) of the foot. COMPARISON: None. FINDINGS: Normal talus, calcaneus, and tarsal bones. Normal visualized subtalar, talonavicular, calcaneocuboid, tarsal and tarsometatarsal articulations. Normal metatarsi. Normal metatarsophalangeal joint of the great toe. Normal tibial and fibular sesamoid bones. Normal interphalangeal joint of the great toe. Normal phalanges of the great toe. Normal second through fifth metatarsophalangeal joints. Normal interphalangeal joints and phalanges of the lesser toes. The soft tissue structures are unremarkable. RAD/Foot min 3 Views IMPRESSION: Normal x-ray examination of the foot. Electronically Signed: Wni Vizcaino, at 13:30 EDT , Service support ,
--- NOTE | 2019-06-06 11:21 | RAD_ITS ---
STUDY: X-RAY - LEFT KNEE REASON FOR EXAM: Female, 68 years old. Bilateral knee pain TECHNIQUE: 4 view(s) of the knee. COMPARISON: None. FINDINGS: Normal visualized distal femur. Normal visualized proximal tibia and fibula. Normal proximal tibiofibular articulation. There is mild degenerative arthrosis of the medial femorotibial compartment. Normal lateral femorotibial compartment. There is moderate degenerative arthrosis of the patellofemoral articulation. The soft tissue structures are unremarkable. RAD/Knee 4 or More Views IMPRESSION: Degenerative arthrosis. Electronically Signed: Win Vizcaino, at 13:31 EDT , Service support ,
--- NOTE | 2019-06-06 11:21 | RAD_ITS ---
STUDY: X-RAY - RIGHT HAND REASON FOR EXAM: Female, 68 years old. Joint pain, arthralgia TECHNIQUE: 3 view(s) of the hand. COMPARISON: None. FINDINGS: Normal radiocarpal articulation. Normal distal radioulnar joint. Normal visualized carpal bones. Normal carpal articulations Normal carpometacarpal articulation of the thumb. Normal second through fifth carpometacarpal joints. Normal metacarpi. Normal metacarpophalangeal joint of the thumb. Normal interphalangeal joint of the thumb. Normal proximal and distal phalanges of the thumb. Normal metacarpophalangeal joints of the second through fifth fingers. Normal proximal and distal interphalangeal joints of the second through fifth fingers. Normal phalanges of the second through fifth fingers. The soft tissue structures are unremarkable. RAD/Hand Min 3 Views IMPRESSION: Normal x-ray examination of the hand. Electronically Signed: Win Vizcaino, at 13:29 EDT , Service support ,
--- NOTE | 2019-06-06 11:21 | RAD_ITS ---
STUDY: X-RAY - LEFT HAND REASON FOR EXAM: Female, 68 years old. Joint pain, arthralgia TECHNIQUE: 3 view(s) of the hand. COMPARISON: None. FINDINGS: Normal radiocarpal articulation. Normal distal radioulnar joint. Normal visualized carpal bones. Normal carpal articulations Normal carpometacarpal articulation of the thumb. Normal second through fifth carpometacarpal joints. Normal metacarpi. Normal metacarpophalangeal joint of the thumb. Normal interphalangeal joint of the thumb. Normal proximal and distal phalanges of the thumb. Normal metacarpophalangeal joints of the second through fifth fingers. Normal proximal and distal interphalangeal joints of the second through fifth fingers. Normal phalanges of the second through fifth fingers. The soft tissue structures are unremarkable. RAD/Hand Min 3 Views IMPRESSION: Normal x-ray examination of the hand. Electronically Signed: Win Vizcaino, at 13:30 EDT , Service support ,
== END ==
PROVIDERS: PCP Internal Medicine; Referring Provider Internal Medicine; Visit Provider Internal Medicine
DX: S22.080A Wedge compression fracture of T11-T12 vertebra, initial encounter for closed fracture (principal); M81.0 Age-related osteoporosis without current pathological fracture; M25.561 Pain in right knee; M25.562 Pain in left knee; M25.541 Pain in joints of right hand; M25.542 Pain in joints of left hand; M79.671 Pain in right foot; M79.672 Pain in left foot
CPT/HCPCS: 73130; 73564; 73630

== ENCOUNTER → 2019-06-28 14:11 | Outpatient (CLI) | payer OTHER, SELFPAY ==
[2017-05-28 15:21] VITALS: BMI 26.0
[2019-05-25 15:18] VITALS: BMI 27.2
[2019-06-28 14:10] VITALS: BP 146/80; PULSE 68; RESP 16; TEMP 37.2; O2SAT 99; BMI 27.2
[2019-06-28] MEDS: Romosozumab-AQQG 210 MG/2.34 ML Syringe SQ (14:14)
== END ==
PROVIDERS: PCP Internal Medicine; Referring Provider Nurse Practitioner; Visit Provider Nurse Practitioner
DX: S22.080A Wedge compression fracture of T11-T12 vertebra, initial encounter for closed fracture (principal); M81.0 Age-related osteoporosis without current pathological fracture
CPT/HCPCS: 96372; J3111

== ENCOUNTER → 2019-07-26 13:43 | Outpatient (CLI) | payer OTHER, SELFPAY ==
[2017-05-28 15:21] VITALS: BMI 26.0
[2019-06-28 14:10] VITALS: BMI 27.2
[2019-07-26 13:50] VITALS: BP 135/80; PULSE 79; RESP 18; TEMP 37.2; O2SAT 98; BMI 27.2
[2019-07-26] MEDS: Romosozumab-AQQG 210 MG/2.34 ML Syringe SQ (13:56)
== END ==
PROVIDERS: PCP Internal Medicine; Referring Provider Nurse Practitioner; Visit Provider Nurse Practitioner
DX: S22.080A Wedge compression fracture of T11-T12 vertebra, initial encounter for closed fracture (principal); M81.0 Age-related osteoporosis without current pathological fracture
CPT/HCPCS: 96372; J3111

== ENCOUNTER → 2019-07-27 14:30 | Outpatient (CLI) | payer OTHER, SELFPAY ==
[2017-05-28 15:21] VITALS: BMI 26.0
[2019-07-26 13:50] VITALS: BMI 27.2
[2019-07-27 14:51] LABS: Erythrocyte Sedimentation Rate 2 mm/hr (0-30)
[2019-07-27 15:08] LABS: CRP 3.06 mg/L (0.0-3.0); Rheumatoid Factor < 10.0 IU/mL (<15)
[2019-08-02 06:49] LABS: CCP IgG Antibodies 11 units (0-19)
== END ==
PROVIDERS: PCP Internal Medicine; Referring Provider Internal Medicine; Visit Provider Internal Medicine
DX: M25.542 Pain in joints of left hand (principal); M25.541 Pain in joints of right hand
CPT/HCPCS: 36415; 85652; 86140; 86200; 86431

== ENCOUNTER → 2019-08-23 13:02 | Outpatient (CLI) | payer OTHER, SELFPAY ==
[2017-05-28 15:21] VITALS: BMI 26.0
[2019-06-28 14:10] VITALS: BMI 27.2
[2019-07-26 13:50] VITALS: BMI 27.2
[2019-08-23 13:16] VITALS: BP 119/61; PULSE 77; RESP 16; TEMP 36.4; O2SAT 100; BMI 26.6
[2019-08-23] MEDS: Romosozumab-AQQG 210 MG/2.34 ML Syringe SQ (13:29)
== END ==
PROVIDERS: PCP Internal Medicine; Referring Provider Nurse Practitioner; Visit Provider Nurse Practitioner
DX: M81.0 Age-related osteoporosis without current pathological fracture (principal); S22.080A Wedge compression fracture of T11-T12 vertebra, initial encounter for closed fracture
CPT/HCPCS: 96372; J3111

== ENCOUNTER → 2019-09-20 13:33 | Outpatient (CLI) | payer OTHER, SELFPAY ==
[2017-05-28 15:21] VITALS: BMI 26.0
[2019-07-26 13:50] VITALS: BMI 27.2
[2019-08-23 13:16] VITALS: BMI 26.6
[2019-09-20] MEDS: Romosozumab-AQQG 210 MG/2.34 ML Syringe SQ (13:54)
[2019-09-20 14:17] VITALS: BP 116/59; PULSE 69; RESP 16; TEMP 36; O2SAT 100; BMI 26.6
== END ==
PROVIDERS: PCP Internal Medicine; Referring Provider Nurse Practitioner; Visit Provider Nurse Practitioner
DX: S22.080A Wedge compression fracture of T11-T12 vertebra, initial encounter for closed fracture (principal); M81.0 Age-related osteoporosis without current pathological fracture
CPT/HCPCS: 96372; J3111

== ENCOUNTER → 2019-10-17 08:59 | Outpatient (CLI) | payer OTHER, SELFPAY ==
[2017-05-28 15:21] VITALS: BMI 26.0
[2019-08-23 13:16] VITALS: BMI 26.6
[2019-09-20 14:17] VITALS: BMI 26.6
--- NOTE | 2019-10-17 09:00 | BI_ITS ---
MAMMOGRAPHY - BILATERAL SCREENING REASON FOR EXAM: Female, 69 years old. Routine annual screening examination. PERTINENT HISTORY: Non-contributory. TECHNIQUE: Digital bilateral breast earnest (3D mammographic acquisition) in the CC and MLO projections. 2-D mediolateral oblique (MLO) and craniocaudad (CC) views of both breasts were obtained. CAD: Full Field Digital Mammography with Computer Added Detection was performed. COMPARISON: Comparison is made with prior examination dated 10/07/2018 and 06/22/2017. FINDINGS: Breast Composition: The breasts are heterogeneously dense, which may obscure small masses. There are no dominant masses or suspicious calcifications. No other significant abnormalities are identified. There has been no significant change since the prior study. BI/SCREEN MAMM (CAD) W/EARNEST BILAT IMPRESSION: Stable bilateral screening mammogram. Yearly follow-up mammogram recommended. (A) ASSESSMENT CATEGORY: BIRADS Category 1: Negative. A letter regarding these results will be sent to the patient by the facility within 30 days. Approximately 10% of breast cancers are not detected by mammography. A normal mammogram should not delay biopsy of a clinically suspicious abnormality. [id number] Electronically Signed: Win Vizcaino, at 10:06 EDT , Service support ,
== END ==
PROVIDERS: PCP Internal Medicine; Referring Provider Nurse Practitioner Women's Health; Visit Provider Nurse Practitioner Women's Health
DX: Z12.31 Encounter for screening mammogram for malignant neoplasm of breast (principal)
CPT/HCPCS: 77063; 77067

== ENCOUNTER → 2019-10-18 12:54 | Outpatient (CLI) | payer OTHER, SELFPAY ==
[2017-05-28 15:21] VITALS: BMI 26.0
[2019-08-23 13:16] VITALS: BMI 26.6
[2019-09-20 14:17] VITALS: BMI 26.6
[2019-10-18] MEDS: Romosozumab-AQQG 210 MG/2.34 ML Syringe SQ (13:09)
[2019-10-18 13:17] VITALS: BP 126/73; PULSE 67; RESP 16; TEMP 36.3; O2SAT 100; BMI 26.6
== END ==
PROVIDERS: PCP Internal Medicine; Referring Provider Nurse Practitioner; Visit Provider Nurse Practitioner
DX: S22.080A Wedge compression fracture of T11-T12 vertebra, initial encounter for closed fracture (principal); M81.0 Age-related osteoporosis without current pathological fracture
CPT/HCPCS: 96372; J3111

== ENCOUNTER → 2019-11-01 08:20 | Outpatient (CLI) | payer OTHER, SELFPAY ==
[2017-05-28 15:21] VITALS: BMI 26.0
[2019-10-27 13:57] VITALS: BMI 26.6
[2019-11-01 08:43] LABS: Absolute Neutrophil Count 2.9 X10^3/uL (2.0-7.7); Hematocrit 36.1 % (37-47); Hemoglobin 12.2 g/dL (12.0-15.0); Lymphocyte % 20.9 % (19-41); Mean Corp Hgb Conc 33.8 g/dL (32-36); Mean Corpuscular Volume 85.7 fL (81-99); Mean Platelet Vol. 8.6 fl (6.2-12.0); Monocyte# 0.46 X10^3/uL; Monocyte% 10.7 % (0-10); NRBC Flagged by Analyzer 0 % (0-5); Neutrophil # 2.92 X10^3/uL (2.7-7.7); Neutrophil % 67.9 % (47-70); Platelet Count 346 K/mm3 (150-450); RBC Distribution Width CV 12.8 % (11.6-14.6); RBC Distribution Width SD 39.7 fl (35.1-43.9); Red Blood Count 4.21 M/mm3 (4.2-5.4); White Blood Count 4.3 K/mm3 (4.4-11.0)
[2019-11-01 08:58] LABS: Hemoglobin A1c 5.4 % (3.8-5.6)
[2019-11-01 09:07] LABS: ALB/GLOB Ratio 1.2 RATIO (0.9-2.4); AST(SGOT) 16 U/L (15-37); Alanine Aminotransfer ALT/SGPT 23 U/L (13-56); Albumin, Serum 3.9 g/dL (3.2-5.0); Alkaline Phosphatase 101 U/L (45-117); Anion Gap 7 (5-15); BUN 11 mg/dL (7-18); BUN/Creat Ratio 14.9 RATIO (10-20); Calcium,Total 8.7 mg/dL (8.5-10.1); Chloride 95 mmol/L (98-107); Cholesterol 169 mg/dL (200); Creatinine, Serum 0.74 mg/dL (0.55-1.02); EST Glomerular Filtration Rate 83 mL/min (>60); Est Glom Filt Rate - Afr Amer 101 mL/min (>60); Ferritin 36 ng/mL (8-252); Globulin 3.2 g/dL (2.2-4.2); Glucose 89 mg/dL (74-106); High Density Lipoprotein 66 mg/dL; Iron 57 ug/dL (50-170); Iron Binding Capacity,Total 410 ug/dL (250-450); Protein, Total 7.1 g/dL (6.4-8.2); Sodium Level 130 mmol/L (136-145); Thyroid Stim Hormone (TSH) 1.14 uIU/mL (0.358-3.74); Triglycerides 68 mg/dL; Very Low Density Lipoprotein 14 mg/dL (5-40)
[2019-11-01 10:51] LABS: Bacteria 0 SEEN /hpf (None Seen); Mucous, Urine 0 SEEN /hpf (<or=2+); Red Blood Cells-Urine 0 SEEN /hpf (0-5)
[2019-11-01 11:12] LABS: Color, Urine Yellow (Yellow); Glucose, Dipstick Normal (Normal); Ketone-Dipstick Negative (Negative); Leukocyte Esterase-Dipstick 25 /ul (Negative); Nitrite-Dipstick Negative (Negative); Occult Blood-Urine Negative /ul (Negative); Protein-Dipstick Negative (Negative); Specific Gravity, Urine 1.005 (1.002-1.030); Urine Bilirubin Dipstick Negative (Negative); Urine Clarity Sl. Cloudy (Clear); Urine Urobilinogen Normal (Normal)
[2019-11-01 11:19] LABS: Squamous Epithelial Cells - UA 0-5 SEEN /hpf (5-10); White Blood Cells 0-5 SEEN /hpf (0-5)
[2019-11-01 11:20] LABS: Microalbumin,Random Urine 5.2 mg/L (NO RANGE EST.); Microalbumin:Creatinine Ratio 14.9 mg/g CRE (<30 mg/g CRE)
== END ==
LOC: LAB.FUTURE 08:21 → PAVLAB 08:22
PROVIDERS: PCP Internal Medicine; Referring Provider Internal Medicine; Visit Provider Internal Medicine
DX: D50.9 Iron deficiency anemia, unspecified (principal); R73.02 Impaired glucose tolerance (oral); M81.0 Age-related osteoporosis without current pathological fracture; S22.080A Wedge compression fracture of T11-T12 vertebra, initial encounter for closed fracture
CPT/HCPCS: 36415; 80053; 80061; 81001; 82043; 82570; 82728; 83036; 83540; 83550; 84443; 85025

== ENCOUNTER → 2019-11-06 10:57 | Outpatient (CLI) | payer OTHER, SELFPAY ==
[2017-05-28 15:21] VITALS: BMI 26.0
[2019-10-18 13:17] VITALS: BMI 26.6
[2019-10-27 13:57] VITALS: BMI 26.6
--- NOTE | 2019-11-06 10:57 | US_ITS ---
STUDY: THYROID ULTRASOUND REASON FOR EXAM: Female, 69 years old. THYROID NODULES TECHNIQUE: Ultrasound evaluation of the thyroid was performed with real-time and static betancourt-scale imaging. COMPARISON: Comparison is made with prior examination of 11/16/2018. FINDINGS: RIGHT LOBE: The right lobe of the thyroid gland measures 4.1 cm x 1.6 cm x 1.4 cm. There is a heterogeneous echotexture. Multiple solid/cystic nodules are seen throughout the right lobe. The largest measures 8 mm x 7 mm x 6 mm. This is in the lower pole. A calcific rim is seen. LEFT LOBE: The left lobe of the thyroid gland measures 4.4 cm x 1.6 cm x 1.8 cm. There is a heterogeneous echotexture. Multiple cystic/solid nodules are seen. The largest nodule measuring 1.3 cm x 1.3 cm x 1 cm. ISTHMUS: The isthmus measures 2.5 mm. There is a 1 cm x 1 cm x 0.4 sinus solid/cystic nodule within it. The regional lymph nodes are normal. US/Thyroid IMPRESSION: Stable examination. Multiple bilateral thyroid nodules. Electronically Signed: Win Vizcaino, at 13:03 EDT , Service support ,
== END ==
PROVIDERS: PCP Internal Medicine; Referring Provider Surgery; Visit Provider Surgery
DX: E04.2 Nontoxic multinodular goiter (principal)
CPT/HCPCS: 76536

== ENCOUNTER → 2019-11-09 14:49 | Outpatient (CLI) | payer OTHER, SELFPAY ==
[2017-05-28 15:21] VITALS: BMI 26.0
[2019-10-27 13:57] VITALS: BMI 26.6
[2019-11-09 08:28] VITALS: BMI 26.6
[2019-11-09 14:54] VITALS: BP 123/66; PULSE 71; RESP 16; TEMP 36.1; O2SAT 100; BMI 26.6
[2019-11-09] MEDS: DENOSUMAB 60 MG/ML SQ (14:59)
== END ==
PROVIDERS: PCP Internal Medicine; Referring Provider Internal Medicine Endocrinology, Diabetes & Metabolism; Visit Provider Internal Medicine Endocrinology, Diabetes & Metabolism
DX: S22.080A Wedge compression fracture of T11-T12 vertebra, initial encounter for closed fracture (principal); M81.0 Age-related osteoporosis without current pathological fracture
CPT/HCPCS: 96372; J0897

== ENCOUNTER → 2019-12-04 09:59 | Outpatient (CLI) | payer OTHER, SELFPAY ==
[2017-05-28 15:21] VITALS: BMI 26.0
[2019-11-09 14:54] VITALS: BMI 26.6
--- NOTE | 2019-12-04 10:00 | US_ITS ---
STUDY: ULTRASOUND OF THE FEMALE PELVIS - COMPLETE REASON FOR EXAM: Female, 69 years old. RT SIDED PELVIC PAIN LMP: The patient is postmenopausal. TECHNIQUE: Transabdominal and Transvaginal TECHNICAL QUALITY: Adequate. COMPARISON: Comparison is made with prior study dated 04/29/2018. FINDINGS: The uterus is anteverted and is in a midline position. The uterus measures 5.9 cm x 3 cm x 3.6 cm. Normal uterine cervix. The endometrium measures 3.0 mm in thickness, and is fluid distended. There is no demonstrated endometrial mass. There is a 7 mm x 3 mm x 3 mm fundal fibroid. I.U.D. - The patient does not have an I.U.D. The right ovary is non-visualized. The left ovary is visualized. The left ovary measures 2.4 cm x 1.4 cm x 2.1 cm. There is no left ovarian cyst or ovarian mass. There is no visualized left adnexal mass or complex lesion. There is normal arterial and normal venous vascularity. There is no fluid in the cul-de-sac. The pre void volume of the bladder was 295 ml. Polycystic ovary disease: No. US/Transvaginal Non- IMPRESSION: Stable small fibroid in the fundal portion of uterus. Electronically Signed: Win Vizcaino, at 11:15 EDT , Service support ,
--- NOTE | 2019-12-04 10:00 | US_ITS ---
STUDY: ULTRASOUND OF THE FEMALE PELVIS - COMPLETE REASON FOR EXAM: Female, 69 years old. RT SIDED PELVIC PAIN LMP: The patient is postmenopausal. TECHNIQUE: Transabdominal and Transvaginal TECHNICAL QUALITY: Adequate. COMPARISON: Comparison is made with prior study dated 04/29/2018. FINDINGS: The uterus is anteverted and is in a midline position. The uterus measures 5.9 cm x 3 cm x 3.6 cm. Normal uterine cervix. The endometrium measures 3.0 mm in thickness, and is fluid distended. There is no demonstrated endometrial mass. There is a 7 mm x 3 mm x 3 mm fundal fibroid. I.U.D. - The patient does not have an I.U.D. The right ovary is non-visualized. The left ovary is visualized. The left ovary measures 2.4 cm x 1.4 cm x 2.1 cm. There is no left ovarian cyst or ovarian mass. There is no visualized left adnexal mass or complex lesion. There is normal arterial and normal venous vascularity. There is no fluid in the cul-de-sac. The pre void volume of the bladder was 295 ml. Polycystic ovary disease: No. US/Pelvic (Non ) IMPRESSION: Stable small fibroid in the fundal portion of uterus. Electronically Signed: Win Vizcaino, at 11:15 EDT , Service support ,
== END ==
PROVIDERS: PCP Internal Medicine; Referring Provider Nurse Practitioner Women's Health; Visit Provider Nurse Practitioner Women's Health
DX: R10.2 Pelvic and perineal pain (principal)
CPT/HCPCS: 76830; 76856

== ENCOUNTER → 2020-01-17 13:22 | Outpatient (CLI) | payer OTHER, SELFPAY ==
[2017-05-28 15:21] VITALS: BMI 26.0
[2019-11-09 14:54] VITALS: BMI 26.6
[2020-01-17 13:52] LABS: Magnesium 2.1 mg/dL (1.6-2.6)
== END ==
PROVIDERS: PCP Internal Medicine; Referring Provider Internal Medicine; Visit Provider Internal Medicine
DX: M81.0 Age-related osteoporosis without current pathological fracture (principal); S22.080A Wedge compression fracture of T11-T12 vertebra, initial encounter for closed fracture
CPT/HCPCS: 36415; 83735

== ENCOUNTER 2020-02-23 14:45 | Outpatient (RCR) | payer OTHER, SELFPAY ==
[2017-05-28 15:21] VITALS: BMI 26.0
[2019-01-05 16:00] VITALS: BMI 27.6
[2019-03-17 10:39] VITALS: BMI 27.2
--- NOTE | 2019-04-10 14:53 | MASS.EVAL ---
Massage Therapy Evaluation: Initial Evaluation Date: 04/07/2019 SUBJECTIVE: Annie is a 68 year old female who was referred to the [facility] facility for a massotherapy evaluation by Dr. Dinh with the diagnosis of cluster headaches and muscles spasms in back. She presents today with the symptoms of pain, stiffness and tension in the neck, mid back, and low back. Annie reports having a past medical history of last year having extreme back pain and had a back surgery. She reports having minimal improvement with exercise and stretching. OBJECTIVE: Upon observation Annie has some posture issues with her head and shoulders forward from the neutral position in sitting and standing. After examination and palpation, I found Annie to have high muscle tension with tenderness and myofascial restrictions in her sub occipitals, levator scapulae, trapezius, rhomboids, scalenes, and thoracic paraspinals. Her QL?s, lumbar paraspinals, piriformis, glute medius and minimus all were very tight with fascial restrictions, tender points and trigger points. The first treatment consisted of a one hour massage to her full body with myofascial release, muscle stripping, trigger point compression techniques, and cervical manual traction. ASSESSMENT: I feel that Annie is a good candidate for massotherapy at this time. She had a favorable response to the first treatment with reduction in her muscle aches, pain and tension. She also had improvement in her cervical flexibility and low back flexibility. PLAN: The plan of care was reviewed with the patient. The patient is to be seen on an as needed basis for a total of ten sessions with the recommendation of once every month for a one hour treatment.
--- NOTE | 2020-02-24 09:53 | DS.PCM_ITS ---
Massage Therapy Discharge Summary: Discharge Date: 02/24/2020 Annie was seen for a massotherapy evaluation on 04/07/2019 with the diagnosis of cluster headaches and muscle spasm. She was treated with seven sessions of massage therapy consisting of moderate to deep pressure soft tissue techniques, myofascial release and trigger point compression to her cervical, thoracic, lower back, lower extremities and hips. Annie responded well to the therapy by reporting decreased tension and pain throughout her neck, shoulders, lower back and hips. Her goals for therapy were met throughout the treatment sessions. At this time this patient is being discharged from our care at [facility] facility.
== END 2020-02-23 19:00 | disposition home or self-care (01) ==
LOC: MASS 14:45
PROVIDERS: Family Provider Internal Medicine; PCP Internal Medicine; Visit Provider Internal Medicine
DX: G44.209 Tension-type headache, unspecified, not intractable (principal); M62.838 Other muscle spasm
CPT/HCPCS: 97124

== ENCOUNTER 2020-03-02 10:48 | Emergency (ER) | payer OTHER, SELFPAY ==
[2017-05-28 15:21] VITALS: BMI 26.0
[2019-11-09 14:54] VITALS: BMI 26.6
[2020-03-02 10:50] VITALS: BP 155/72; PULSE 85; RESP 16; TEMP 35.7; O2SAT 98; BMI 27.3
--- NOTE | 2020-03-02 11:24 | ED.VIS.LOWEX ---
History of Present Illness Informant: Patient Occurred: Days - 4 days Mechanism/Context: - - no injury Onset: Days - 4 days Context: Gradual Onset Timing: Continuous Quality of Pain: Throbbing Location: right calf Current Severity: Moderate Maximum Severity: Moderate Worsened by: walking, movement Relieved by: rest Associated Symptoms: Negative for: Parasthesia, Weakness, Loss of Funtion Narrative: 69-year-old female presents with right calf pain for 4 days. No injury or trauma. Mild swelling. It is throbbing. No recent travel or surgery. No history of DVT or PE. No use of oral hormones. No chest pain shortness of breath hemoptysis. No history of cancer. Rest review of systems negative. Tetanus Immunization: Unknown Prior similar symptoms: No Recent Illness/Hospitalization: No <Grupo Zamudio - Last Filed: 03/02/20 11:24> <Bobby Weaver - Last Filed: 03/02/20 11:40> Chief Complaint: Lower Extremity Injury Past Medical History Prior records reviewed: Yes Past Medical History: - - Hypretension hyperlipidemia migraines IBS Surgical History: noncontributory Lives: With Family Smoking Status: Never smoker Alcohol: None Drugs: None <Grupo Zamudio - Last Filed: 03/02/20 11:24> <Bobby Weaver - Last Filed: 03/02/20 11:40> - Allergies and Home Meds Allergies/Adverse Reactions: Allergies No Known Allergies Allergy (Verified 03/02/20 10:50) Primary Care Physician: Shila Dinh DO [Primary Care Provider] - Review of Systems All systems negative except as indicated General: Denies: Chills, Fever, Sweats Eyes: Denies: Visual changes - bilaterally, Diplopia ENT: Denies: Rhinorrhea, Sore throat Cardiovascular: Denies: Chest pain, Palpitations Respiratory: Denies: Dyspnea, Cough, Dyspnea on exertion Gastrointestinal: Denies: Abdominal pain, Nausea, Vomiting, Diarrhea, Melena, Hematochezia Genitourinary: Denies: Dysuria, Hematuria, Frequency Musculoskeletal: Reports: Swelling, Extremity Pain. Denies: Back pain Skin: Denies: Rash, Wounds Neurological: Denies: Headache, Weakness, Numbness <Grupo Zamudio - Last Filed: 03/02/20 11:24> Physical Exam Vital Signs/Narrative: Vital Signs Temp Pulse Resp BP Pulse Ox 03/02/20 10:50 96.2 F L 85 16 155/72 H 98 Inital Vital Signs reviewed: Yes - Extremity Exam Right Tib fib: - - Patient has no lower extremity edema of either leg. Compartments are soft bilaterally. DP and PT pulses are symmetrical bilaterally. Sensation normal throughout right lower extremity. Normal active range of motion of right hip knee and ankle. General: Well nourished, Well developed Head: Normocephalic, Atraumatic Eyes: Perrl, EOMI ENT: No Trauma, Moist Mucous Membranes Neck: Nontender, Full ROM Cardiovascular: Regular rate, Regular rhythm, No murmurs Respiratory: No distress, CTA bilaterally, Chest nontender Abdomen: Soft, Nontender, Nondistended, Normal bowel sounds Back: Nontender Skin: Normal color, No rash Neurological: Alert, Oriented x3, Cranial nerves II-XII grossly intact, Normal Strength, Normal Sensation Psychological: Normal affect <Grupo Zamudoi - Last Filed: 03/02/20 11:24> Vital Signs/Narrative: Vital Signs Temp Pulse Resp BP Pulse Ox 03/02/20 11:35 72 15 143/69 H 97 03/02/20 10:50 96.2 F L 85 16 155/72 H 98 <Bobby Weaver - Last Filed: 03/02/20 11:40> Diagnostic/Tx/Re-eval - Medical Decision Making Ultrasound was obtained which showed no evidence of DVT but it did show Higgins's cyst. Patient already has compression stockings. She will rest ice and elevate use anti-inflammatories and follow-up with her primary care physician or return to the emergency department for worsening symptoms which were discussed. <Grupo Zamudio - Last Filed: 03/02/20 11:24> - Medical Decision Making Patient was seen with Grupo quinn with history physical as above she has some lateral right leg discomfort the exam shows some very mild discomfort this area no obvious signs of infection swelling neurovascular function of the lower leg knee function ankle function foot all unremarkable please see the chart for full details and management <Bobby Weaver - Last Filed: 03/02/20 11:40> ED Disposition <Grupo Zamudio - Last Filed: 03/02/20 11:24> <Bobby Weaver - Last Filed: 03/02/20 11:40> - Plan for ED Patient: Disposition: Home or Assisted Living Diagnosis: Higgins's cyst Instructions: ED Higgins's Cyst Referrals: Shila Dinh DO [Primary Care Provider] -
[2020-03-02 11:35] VITALS: BP 143/69; PULSE 72; RESP 15; O2SAT 97
== END 2020-03-02 11:44 | disposition home or self-care (01) ==
LOC: ED 11:43
PROVIDERS: Emergency Provider Physician Assistant Medical; PCP Internal Medicine
DX: M71.20 Synovial cyst of popliteal space [Baker], unspecified knee (principal)
CPT/HCPCS: 93971; 99282

== ENCOUNTER → 2020-03-28 08:28 | Outpatient (CLI) | payer OTHER, SELFPAY ==
[2017-05-28 15:21] VITALS: BMI 26.0
[2019-11-09 14:54] VITALS: BMI 26.6
[2020-03-02 10:50] VITALS: BMI 27.3
--- NOTE | 2020-03-28 08:31 | BD_ITS ---
STUDY: DUAL ENERGY X-RAY ABSORPTIOMETRY / DXA REASON FOR EXAM: Female, 69 years old. Age of melanie 52. Pat is 180.9# and 66 and quot; a loss of 4 and quot; per pat. Past use of using Actonel to start for 1-2 yrs then was on prolia for about 2 yrs then took Evenity for 1 year and now started back on Prolia x 1 injection. Takes 1200 mg calcium and a multi-vit. Does a little to no exercise. Mother has osteo. Hx of comp fx''s in her back. Hx of a kyphoplasty x 2, L1 and L2. TECHNIQUE: Bone Mineral Density (BMD) measurements of lumbar spine and bilateral hips were obtained. COMPARISON: Comparison is made with prior examination dated 03/09/2018. FINDINGS: Lumbar Spine (L1-L4): g/cm2 (0.987) / T-score (-1.8) / Z-score (-0.2) Findings are suggestive of osteopenia with a moderate fracture risk. Increased kyphosis. Prior vertebroplasty of the T12-L1 vertebrae. Increased kyphosis. Left Femur Total: g/cm2 (0.856) / T-score (-1.2) / Z-score (0.1) Left Femoral Neck: g/cm2 (0.782) / T-score (-1.8) / Z-score (-0.3) Right Femur Total: g/cm2 (0.881) / T-score (-1.0) / Z-score (0.3) Right Femoral Neck: g/cm2 (0.794) / T-score (-1.8) / Z-score (-0.2) The T-Scores on the most recent prior examination were: Lumbar Spine (L1-L4): There has been improvement of bone density since the previous examination. Left Femur Total: which represents an improvement of 3.5%. Right Femur Total: which represents an improvement of 6.4%. BD/Dexa Bone Density Study IMPRESSION: The patient is considered osteopenic as outlined below according to World Enrrique Organization (WHO) criteria with a moderate fracture risk. There has been improvement of bone density since the previous examination. Reference Information: The T-score is the number of standard deviations above or below the standard which is normal for young adults at their peak bone mineral density. The World Health Organization (WHO) interprets the T-scores as follows: Above -1 Normal bone density Between -1 and -2.5 Osteopenia Equal to / or below -2.5 Osteoporosis As a practical clinical guideline, osteopenia may be graded as follows: Mild -1 through -1.5 Moderate -1.6 through -2.0 Severe -2.1 through -2.4 The Z-score is the number of standard deviations above or below age-matched controls. A Z-score of less than -1.5 would be considered abnormal. References: 1. NIH Osteoporosis and Related Bone Diseases www osteo.org 2. International Society for Clinical Densitometry www iscd.org 3. National Osteoporosis Foundation www nof.org Electronically Signed: Win Vizcaino MD at 13:23 EST , Service support ,
== END ==
PROVIDERS: PCP Internal Medicine; Referring Provider Internal Medicine; Visit Provider Internal Medicine
DX: Z78.0 Asymptomatic menopausal state (principal)
CPT/HCPCS: 77080

== ENCOUNTER → 2020-03-29 10:32 | Outpatient (CLI) | payer OTHER, SELFPAY ==
[2017-05-28 15:21] VITALS: BMI 26.0
[2020-03-02 10:50] VITALS: BMI 27.3
--- NOTE | 2020-03-29 10:34 | NM_ITS ---
CLINICAL: 69-year-old female with reported history of postprandial abdominal bloating. SEMI-SOLID PHASE 99m Tc SULFUR COLLOID GASTRIC EMPTYING STUDY COMPARISON: None available FINDINGS: The patient was administered approximately 1.0 mCi of 99m Tc sulfur colloid mixed with oatmeal and consumed per os. Image acquisitions in the anterior-posterior projections were obtained for 60 minutes. There is prompt visualization of the stomach. There is no gastroesophageal reflux identified. Zero order, logarithmic kinetics are defined throughout the duration of the acquisitions. There is rapid-accelerated emptying of the gastric contents noted during 60 minutes of sequential imaging. The T ? linear fit was calculated to be 7.97 minutes, (Normal 12-56 minutes). NM/Gastric Emptying Study IMPRESSION: 1. ABNORMAL 99m Tc sulfur colloid solid phase gastric emptying imaging examination. A. There is accelerated solid phase gastric emptying compared to normal controls with demonstrated zero order-logarithmic kinetics throughout all components of the examination. (Marissa taveras al, J Nucl Med Tech 38: 186, 2010). Electronically Signed: Michael Stern DO at 8:09 EST Tel , Service support ,
== END ==
PROVIDERS: PCP Internal Medicine; Referring Provider Internal Medicine; Visit Provider Internal Medicine
DX: R14.0 Abdominal distension (gaseous) (principal); M81.0 Age-related osteoporosis without current pathological fracture; S22.080A Wedge compression fracture of T11-T12 vertebra, initial encounter for closed fracture
CPT/HCPCS: 78264; A9541

== ENCOUNTER → 2020-05-09 13:55 | Outpatient (CLI) | payer OTHER, SELFPAY ==
[2017-05-28 15:21] VITALS: BMI 26.0
[2019-10-27 13:57] VITALS: BMI 26.6
[2020-05-09 14:14] VITALS: BP 131/74; PULSE 70; RESP 12; TEMP 36.8; O2SAT 99; BMI 29.0
[2020-05-09] MEDS: DENOSUMAB 60 MG/ML SQ (14:23)
== END ==
PROVIDERS: PCP Internal Medicine; Referring Provider Internal Medicine Endocrinology, Diabetes & Metabolism; Visit Provider Internal Medicine Endocrinology, Diabetes & Metabolism
DX: M81.0 Age-related osteoporosis without current pathological fracture (principal); S22.080A Wedge compression fracture of T11-T12 vertebra, initial encounter for closed fracture
CPT/HCPCS: 96372; J0897

== ENCOUNTER → 2020-07-01 11:16 | Outpatient (CLI) | payer OTHER, SELFPAY ==
[2017-05-28 15:21] VITALS: BMI 26.0
[2020-05-09 14:14] VITALS: BMI 29.0
== END ==
LOC: LAB.FUTURE 11:17 → LAB 09-02 08:22
PROVIDERS: PCP Internal Medicine; Visit Provider Internal Medicine
DX: D50.9 Iron deficiency anemia, unspecified (principal); R73.02 Impaired glucose tolerance (oral)

== ENCOUNTER → 2020-09-18 08:13 | Outpatient (CLI) | payer OTHER, SELFPAY ==
[2017-05-28 15:21] VITALS: BMI 26.0
[2020-05-09 14:14] VITALS: BMI 29.0
[2020-09-18 08:53] LABS: Absolute Lymphocyte Count 1.07 X10^3/uL (0.83-4.51); Absolute Neutrophil Count 4.3 X10^3/uL (2.0-7.7); Hematocrit 36.7 % (37-47); Hemoglobin 12.1 g/dL (12.0-15.0); Lymphocyte # 1.07 X10^3/ul (0.83-4.51); Lymphocyte % 18.2 % (19-41); Mean Corpuscular Hgb 27.3 pg (27.0-32.0); Mean Corpuscular Volume 82.8 fL (81-99); Mean Platelet Vol. 8.9 fl (6.2-12.0); Monocyte# 0.53 X10^3/uL; NRBC Flagged by Analyzer 0 % (0-5); Neutrophil # 4.25 X10^3/uL (2.7-7.7); Neutrophil % 72.3 % (47-70); Platelet Count 436 K/mm3 (150-450); RBC Distribution Width CV 13.1 % (11.6-14.6); RBC Distribution Width SD 39.3 fl (35.1-43.9); Red Blood Count 4.43 M/mm3 (4.2-5.4); White Blood Count 5.9 K/mm3 (4.4-11.0)
[2020-09-18 09:15] LABS: Hemoglobin A1c 5.3 % (3.8-5.6)
[2020-09-18 09:19] LABS: ALB/GLOB Ratio 1.2 RATIO (0.9-2.4); AST(SGOT) 18 U/L (15-37); Alanine Aminotransfer ALT/SGPT 28 U/L (13-56); Albumin, Serum 3.8 g/dL (3.2-5.0); Alkaline Phosphatase 88 U/L (45-117); Anion Gap 6 (5-15); BUN 11 mg/dL (7-18); BUN/Creat Ratio 15.5 RATIO (10-20); Calcium,Total 8.8 mg/dL (8.5-10.1); Chloride 95 mmol/L (98-107); Creatinine, Serum 0.71 mg/dL (0.55-1.02); EST Glomerular Filtration Rate 87 mL/min (>60); Est Glom Filt Rate - Afr Amer 105 mL/min (>60); Ferritin 16 ng/mL (8-252); Globulin 3.2 g/dL (2.2-4.2); Glucose 95 mg/dL (74-106); Iron 45 ug/dL (50-170); Iron Binding Capacity,Total 478 ug/dL (250-450); Sodium Level 129 mmol/L (136-145)
[2020-09-18 11:11] LABS: Microalbumin,Random Urine < 5.0 mg/L (NO RANGE EST.)
[2020-09-18 16:43] LABS: Xtra Tube EP Lab EXTRA TUBE
== END ==
PROVIDERS: PCP Internal Medicine; Referring Provider Internal Medicine; Visit Provider Internal Medicine
DX: R73.02 Impaired glucose tolerance (oral) (principal); D50.9 Iron deficiency anemia, unspecified
CPT/HCPCS: 36415; 80053; 82043; 82570; 82728; 83036; 83540; 83550; 85025

== ENCOUNTER → 2020-09-26 14:06 | Outpatient (CLI) | payer OTHER, SELFPAY ==
[2017-05-28 15:21] VITALS: BMI 26.0
[2020-05-09 14:14] VITALS: BMI 29.0
[2020-09-26 15:53] LABS: ALB/GLOB Ratio 1.2 RATIO (0.9-2.4); AST(SGOT) 22 U/L (15-37); Alanine Aminotransfer ALT/SGPT 30 U/L (13-56); Albumin, Serum 3.9 g/dL (3.2-5.0); Alkaline Phosphatase 87 U/L (45-117); Anion Gap 7 (5-15); BUN 15 mg/dL (7-18); BUN/Creat Ratio 19.2 RATIO (10-20); Calcium,Total 8.9 mg/dL (8.5-10.1); Chloride 99 mmol/L (98-107); Creatinine, Serum 0.78 mg/dL (0.55-1.02); EST Glomerular Filtration Rate 78 mL/min (>60); Est Glom Filt Rate - Afr Amer 94 mL/min (>60); Globulin 3.3 g/dL (2.2-4.2); Glucose 101 mg/dL (74-106); Potassium 3.8 mmol/L (3.5-5.1); Protein, Total 7.2 g/dL (6.4-8.2); Sodium Level 134 mmol/L (136-145)
== END ==
PROVIDERS: PCP Internal Medicine; Referring Provider Internal Medicine; Visit Provider Internal Medicine
DX: Z51.81 Encounter for therapeutic drug level monitoring (principal)
CPT/HCPCS: 80053

== ENCOUNTER → 2020-10-23 08:19 | Outpatient (CLI) | payer OTHER, SELFPAY ==
[2017-05-28 15:21] VITALS: BMI 26.0
[2020-05-09 14:14] VITALS: BMI 29.0
--- NOTE | 2020-10-23 08:22 | BI_ITS ---
MAMMOGRAPHY - BILATERAL SCREENING REASON FOR EXAM: Female, 70 years old. Routine annual screening examination. PERTINENT HISTORY: Non-contributory. TECHNIQUE: Digital bilateral breast earnest (3D mammographic acquisition) in the CC and MLO projections. 2-D mediolateral oblique (MLO) and craniocaudad (CC) views of both breasts were obtained. CAD: Full Field Digital Mammography with Computer Added Detection was performed. COMPARISON: Comparison is made with prior study 10/17/2019 and 10/07/2018. FINDINGS: Breast Composition: The breasts are heterogeneously dense, which may obscure small masses. There are no dominant masses or suspicious calcifications. No other significant abnormalities are identified. There has been no significant change since the prior study. BI/SCRN MAMM (CAD)W/EARNEST BILAT IMPRESSION: Stable bilateral screening mammogram. Yearly follow-up mammogram recommended. (A) ASSESSMENT CATEGORY: BIRADS Category 1: Negative. A letter regarding these results will be sent to the patient by the facility within 30 days. Approximately 10% of breast cancers are not detected by mammography. A normal mammogram should not delay biopsy of a clinically suspicious abnormality. [id number] Electronically Signed: Win Vizcaino MD at 10:27 EDT , Service support ,
[2020-10-23 11:12] LABS: Erythrocyte Sedimentation Rate 4 mm/hr (0-30)
[2020-10-23 11:28] LABS: CRP < 2.90 mg/L (0.0-3.0); Uric Acid 3.8 mg/dL (2.6-6.0)
== END ==
PROVIDERS: PCP Internal Medicine; Referring Provider Nurse Practitioner Women's Health; Visit Provider Nurse Practitioner Women's Health
DX: Z12.31 Encounter for screening mammogram for malignant neoplasm of breast (principal); M25.572 Pain in left ankle and joints of left foot
CPT/HCPCS: 36415; 77063; 77067; 84550; 85652; 86140

== ENCOUNTER → 2020-11-12 09:23 | Outpatient (CLI) | payer OTHER, SELFPAY ==
[2017-05-28 15:21] VITALS: BMI 26.0
[2020-11-12 09:20] VITALS: BP 135/77; PULSE 62; RESP 16; TEMP 36.6; O2SAT 100
[2020-11-12] MEDS: DENOSUMAB 60 MG/ML SC (09:27)
== END ==
PROVIDERS: PCP Internal Medicine; Referring Provider Internal Medicine Endocrinology, Diabetes & Metabolism; Visit Provider Internal Medicine Endocrinology, Diabetes & Metabolism
DX: M81.0 Age-related osteoporosis without current pathological fracture (principal); S22.080A Wedge compression fracture of T11-T12 vertebra, initial encounter for closed fracture
CPT/HCPCS: 96372; J0897

== ENCOUNTER → 2020-11-19 13:40 | Outpatient (CLI) | payer OTHER, SELFPAY ==
[2017-05-28 15:21] VITALS: BMI 26.0
--- NOTE | 2020-11-19 13:45 | RAD_ITS ---
STUDY: X-RAY - LEFT ANKLE REASON FOR EXAM: Left ankle pain and swelling for one month, no specific injury. TECHNIQUE: 3 view(s) of the ankle. COMPARISON: None. FINDINGS: Normal visualized distal tibia and fibula. Normal medial and lateral malleoli. Normal tibiotalar articulation and ankle mortise. Normal visualized talus and calcaneus. The visualized subtalar, talonavicular, calcaneocuboid and tarsal articulations are normal. There is soft tissue swelling. RAD/Ankle min 3 Views IMPRESSION: Soft tissue swelling. Otherwise, unremarkable x-ray examination of the left ankle. Electronically Signed: Stu Burroughs MD at 14:19 EDT Tel , Service support ,
== END ==
PROVIDERS: PCP Internal Medicine; Visit Provider Internal Medicine Endocrinology, Diabetes & Metabolism
DX: M19.90 Unspecified osteoarthritis, unspecified site (principal)
CPT/HCPCS: 73610

== ENCOUNTER → 2020-12-03 08:07 | Outpatient (CLI) | payer OTHER, SELFPAY ==
[2017-05-28 15:21] VITALS: BMI 26.0
--- NOTE | 2020-12-03 08:09 | US_ITS ---
STUDY: THYROID ULTRASOUND REASON FOR EXAM: Female, 70 years old. Follow up -- TI-RADS PLEASE!! TECHNIQUE: Ultrasound evaluation of the thyroid was performed with real-time and static betancourt-scale imaging. COMPARISON: Comparison is made with prior examination of 11/06/2019 and 11/16/2018. FINDINGS: RIGHT LOBE: The right lobe of the thyroid gland measures 4.3 cm x 1.7 cm x 1.2 cm. There is a heterogeneous echotexture. Once again, multiple solid and cystic nodules are seen. The largest measures 9 mm x 7 mm x 7 mm. It has a calcific rim. This is in the lower pole. LEFT LOBE: The left lobe of the thyroid gland measures 4 cm x 1.5 cm x 1.6 cm. There is a heterogeneous echotexture. Multiple hypoechoic cystic and solid nodules are seen scattered throughout the lobe. The largest measures 1.2 cm x 1 cm x 0.6 cm. This is in the mid pole. ISTHMUS: The isthmus measures 3 mm. Stable 1.1 cm x 1 cm x 0.5 cm solid isthmus nodule. The regional lymph nodes are normal. US/Thyroid IMPRESSION: Stable examination with multiple nodules in both lobes as described. TRIADS Category 3 Electronically Signed: Win Vizcaino MD at 11:12 EDT , Service support ,
== END ==
PROVIDERS: PCP Internal Medicine; Referring Provider Internal Medicine Endocrinology, Diabetes & Metabolism; Visit Provider Internal Medicine Endocrinology, Diabetes & Metabolism
DX: E04.2 Nontoxic multinodular goiter (principal)
CPT/HCPCS: 76536

== ENCOUNTER 2021-02-21 12:15 | Outpatient (RCR) | payer OTHER, SELFPAY ==
[2017-05-28 15:21] VITALS: BMI 26.0
[2020-05-09 14:14] VITALS: BMI 29.0
--- NOTE | 2020-05-14 07:10 | MASS.EVAL_ITS ---
Massage Therapy Evaluation: Initial Evaluation Date: 05/10/2020 SUBJECTIVE: Annie is a 69 year old female who was referred to the [facility] for a massotherapy evaluation by Dr. Dinh with the diagnosis of back pain and headaches. Annie presents today with the symptoms of pain and tension in her head, neck, shoulders, and back. Annie reports that her back pain could be as a result of having a weak core. OBJECTIVE: Upon observation Annie has some posture issues with his head and shoulders forward from the neutral position in sitting and standing. After examination and palpation I found Annie to have high muscle tension with tenderness and myofascial restrictions in his sub occipitals, levator scapulae, trapezius, rhomboids, scalenes, and paraspinals muscle group. The first treatment consisted of a one hour massage with myofascial release, muscle stripping, trigger point compression techniques. ASSESSMENT: I feel that Annie is a good candidate for massotherapy at this time. She had a favorable response to the first treatment with reduction in her muscle aches, pain and tension. She also had improvement in her cervical flexibility and low back flexibility. PLAN: The plan of care was reviewed with the patient. The patient is to be seen on an as needed basis for a total of ten sessions with the recommendation of once every month for a one hour treatment.
--- NOTE | 2021-02-24 12:59 | DS.PCM_ITS ---
Massage Therapy Discharge Summary: discharge date 02/24/21 Annie was seen on May 10, 2020, with the diagnosis of back pain. She was treated with nine sessions of massage, and the patient reported that massages helped. At this time I am discharging her from our care at [facility].
== END 2021-02-21 19:00 | disposition home or self-care (01) ==
LOC: MASS 12:15
PROVIDERS: PCP Internal Medicine; Referring Provider Internal Medicine; Visit Provider Internal Medicine
DX: R51.9 Headache, unspecified (principal); M54.50 Low back pain, unspecified
CPT/HCPCS: 97124

== ENCOUNTER 2021-03-13 10:50 | Outpatient (CLI) | payer OTHER, SELFPAY ==
[2017-05-28 15:21] VITALS: BMI 26.0
[2021-03-13 11:33] LABS: Anion Gap 7 (5-15); BUN 13 mg/dL (7-18); BUN/Creat Ratio 20.9 RATIO (10-20); Calcium,Total 8.7 mg/dL (8.5-10.1); Chloride 101 mmol/L (98-107); Creatinine, Serum 0.62 mg/dL (0.55-1.02); EST Glomerular Filtration Rate 101 mL/min (>60); Est Glom Filt Rate - Afr Amer 122 mL/min (>60); Glucose 105 mg/dL (74-106); Sodium Level 136 mmol/L (136-145)
[2021-03-13 11:35] LABS: Vitamin D,25 Hydroxy 43.4 ng/mL
[2021-03-13 11:40] LABS: Thyroid Stim Hormone (TSH) 1.15 uIU/mL (0.358-3.74)
== END 2021-03-13 23:59 | disposition short-term general hospital (02) ==
LOC: PAVLAB 10:52
PROVIDERS: Internal Medicine Endocrinology, Diabetes & Metabolism; PCP Internal Medicine; Referring Provider Internal Medicine; Visit Provider Internal Medicine
DX: E04.2 Nontoxic multinodular goiter (principal); E55.9 Vitamin D deficiency, unspecified; Z51.81 Encounter for therapeutic drug level monitoring; Z79.899 Other long term (current) drug therapy
CPT/HCPCS: 36415; 80048; 82306; 84443

== ENCOUNTER 2021-03-26 09:41 | Outpatient (CLI) | payer OTHER, SELFPAY ==
[2017-05-28 15:21] VITALS: BMI 26.0
[2021-03-28 19:54] LABS: C1 Esterase Inhibitor, Quant 31 mg/dL (21-39)
== END 2021-03-26 23:59 | disposition short-term general hospital (02) ==
LOC: PAVLAB 09:42
PROVIDERS: PCP Internal Medicine; Referring Provider Internal Medicine; Visit Provider Internal Medicine
DX: T78.3XXA Angioneurotic edema, initial encounter (principal); X58.XXXA Exposure to other specified factors, initial encounter
CPT/HCPCS: 36415; 86160

== ENCOUNTER 2021-06-02 11:15 | Outpatient (CLI) | payer OTHER, SELFPAY ==
[2017-05-28 15:21] VITALS: BMI 26.0
[2021-06-02 11:53] LABS: Thyroid Stim Hormone (TSH) 1.02 uIU/mL (0.358-3.74)
[2021-06-03 15:11] LABS: ANTINUCLEAR ANTIBODIES DIRECT Negative (Negative)
== END 2021-06-02 23:59 | disposition home or self-care (01) ==
LOC: PAVLAB 11:17
PROVIDERS: PCP Internal Medicine; Referring Provider Internal Medicine; Visit Provider Internal Medicine
DX: T78.3XXD Angioneurotic edema, subsequent encounter (principal)
CPT/HCPCS: 36415; 84443; 86038

== ENCOUNTER 2021-06-16 13:40 | Outpatient (CLI) | payer OTHER, SELFPAY ==
[2017-05-28 15:21] VITALS: BMI 26.0
== END 2021-06-16 23:59 | disposition home or self-care (01) ==
LOC: LAB.FUTURE 13:40
PROVIDERS: PCP Internal Medicine; Visit Provider Nurse Practitioner
DX: Z00.00 Encounter for general adult medical examination without abnormal findings (principal)

== ENCOUNTER 2021-06-18 08:18 | Outpatient (CLI) | payer OTHER, SELFPAY ==
[2017-05-28 15:21] VITALS: BMI 26.0
[2021-06-18 08:42] LABS: Absolute Neutrophil Count 3.4 X10^3/uL (2.0-7.7); Hematocrit 36.8 % (37-47); Hemoglobin 12.3 g/dL (12.0-15.0); Lymphocyte % 22.3 % (19-41); Mean Corp Hgb Conc 33.4 g/dL (32-36); Mean Corpuscular Hgb 27.1 pg (27.0-32.0); Mean Corpuscular Volume 81.1 fL (81-99); Mean Platelet Vol. 8.8 fl (6.2-12.0); Monocyte# 0.38 X10^3/uL; Monocyte% 7.7 % (0-10); NRBC Flagged by Analyzer 0 % (0-5); Neutrophil # 3.43 X10^3/uL (2.7-7.7); Neutrophil % 69.6 % (47-70); Platelet Count 414 K/mm3 (150-450); RBC Distribution Width CV 12.3 % (11.6-14.6); RBC Distribution Width SD 36.2 fl (35.1-43.9); Red Blood Count 4.54 M/mm3 (4.2-5.4); White Blood Count 4.9 K/mm3 (4.4-11.0)
[2021-06-18 08:57] LABS: AST(SGOT) 18 U/L (15-37); Alanine Aminotransfer ALT/SGPT 25 U/L (13-56); Albumin, Serum 3.9 g/dL (3.2-5.0); Alkaline Phosphatase 94 U/L (45-117); BUN 11 mg/dL (7-18); Bilirubin, Direct 0.11 mg/dL (0.00-0.30); Creatinine, Serum 0.66 mg/dL (0.55-1.02); EST Glomerular Filtration Rate 95 mL/min (>60); Est Glom Filt Rate - Afr Amer 115 mL/min (>60); Globulin 3.1 g/dL (2.2-4.2); Glucose 101 mg/dL (74-106); Rheumatoid Factor < 10.0 IU/mL (<15)
[2021-06-18 09:06] LABS: Erythrocyte Sedimentation Rate 10 mm/hr (0-30)
[2021-06-18 09:25] LABS: Vitamin D,25 Hydroxy 48.2 ng/mL
[2021-06-20 13:28] LABS: C1 EST Inhibitor, Functional >100 (.); Thyroid Peroxidase AB < 8 IU/mL (0-34)
== END 2021-06-18 23:59 | disposition home or self-care (01) ==
LOC: PAVLAB 08:20
PROVIDERS: PCP Internal Medicine; Referring Provider Specialist; Visit Provider Specialist
DX: J30.9 Allergic rhinitis, unspecified (principal); D84.9 Immunodeficiency, unspecified; J45.50 Severe persistent asthma, uncomplicated; R06.00 Dyspnea, unspecified; J32.9 Chronic sinusitis, unspecified; T78.3XXD Angioneurotic edema, subsequent encounter; T78.09XD Anaphylactic reaction due to other food products, subsequent encounter; E55.9 Vitamin D deficiency, unspecified; E07.9 Disorder of thyroid, unspecified; Z91.038 Other insect allergy status
CPT/HCPCS: 36415; 80076; 82306; 82565; 82947; 83520; 84520; 84550; 85025; 85652; 86160; 86161; 86376; 86431

== ENCOUNTER → 2021-07-31 | Outpatient (CLI) | payer OTHER, SELFPAY ==
[2017-05-28 15:21] VITALS: BMI 26.0
[2021-07-31 14:03] VITALS: BP 135/72; PULSE 72; RESP 16; TEMP 36.2; O2SAT 100; BMI 26.6
[2021-07-31] MEDS: DENOSUMAB 60 MG/ML SC (14:11)
[2021-07-31 14:16] VITALS: BP 129/79; PULSE 70; RESP 16; TEMP 35.8; O2SAT 100
== END | disposition home or self-care (01) ==
LOC: MEDOUTP 13:42
PROVIDERS: PCP Internal Medicine; Referring Provider Internal Medicine Endocrinology, Diabetes & Metabolism; Visit Provider Internal Medicine Endocrinology, Diabetes & Metabolism
DX: M81.0 Age-related osteoporosis without current pathological fracture (principal)
CPT/HCPCS: 96372; J0897

== ENCOUNTER → 2021-11-24 | Outpatient (CLI) | payer OTHER, SELFPAY ==
[2017-05-28 15:21] VITALS: BMI 26.0
[2021-11-18 08:41] VITALS: BMI 26.0
--- NOTE | 2021-11-24 08:21 | BI_ITS ---
MAMMOGRAPHY - BILATERAL SCREENING 3-D TOMOSYNTHESIS REASON FOR EXAM: Female, 71 years old. screening for breast cancer PERTINENT HISTORY: No significant family history. TECHNIQUE: 2-D mammograms and 3-D Tomosynthesis of the breast (s) were performed. CAD was performed. COMPARISON: 10/23/2020 FINDINGS: The breast composition is heterogeneously dense that can obscure small breast masses. Scattered benign calcifications are seen. No dense spiculated masses or suspicious microcalcifications are identified. No architectural distortion is identified. There is no skin thickening or retraction. There has been no significant change since the prior study. BI/SCRN MAMM (CAD)W/EARNEST BILAT IMPRESSION: No mammographic signs of malignancy. Routine yearly mammograms recommended. ASSESSMENT CATEGORY: BIRADS Category 1: Negative. A letter regarding these results will be sent to the patient by the facility within 30 days. FOLLOW UP RECOMMENDATION: Yearly follow up mammogram recommended. (A) Approximately 10% of breast cancers are not detected by mammography. A normal mammogram should not delay biopsy of a clinically suspicious abnormality. Electronically Signed: Michael Mckenna MD at 9:00 EDT ,
== END | disposition home or self-care (01) ==
LOC: OPBI 08:19
PROVIDERS: PCP Internal Medicine; Visit Provider Nurse Practitioner Women's Health
DX: Z12.31 Encounter for screening mammogram for malignant neoplasm of breast (principal)
CPT/HCPCS: 77063; 77067

== ENCOUNTER → 2021-12-08 | Outpatient (CLI) | payer OTHER, SELFPAY ==
[2017-05-28 15:21] VITALS: BMI 26.0
[2021-11-18 08:41] VITALS: BMI 26.0
--- NOTE | 2021-12-08 12:32 | US_ITS ---
STUDY: THYROID ULTRASOUND REASON FOR EXAM: Female, 71 years old. Known nodules TECHNIQUE: Ultrasound evaluation of the thyroid was performed with real-time and static betancourt-scale imaging. COMPARISON: None. FINDINGS: RIGHT LOBE: The right lobe of the thyroid gland measures 4.2 x 1.7 x 1.6 cm. There is a heterogeneous echotexture. Stable complex solid and cystic nodules in the right lobe largest measures 0.9 cm. LEFT LOBE: The left lobe of the thyroid gland measures 4.0 x 1.5 x 1.6 cm. There is a heterogeneous echotexture. Multiple stable solid/cystic nodules largest measures 1.2 cm. ISTHMUS: The isthmus measures 3 mm. Stable 1.1 cm Isthmus nodules. The regional lymph nodes are normal. US/Thyroid IMPRESSION: Stable heterogeneous thyroid gland with multiple bilateral nodules unchanged from previous study. Patient has undergone previous FNA. Two-year follow-up recommended to ensure stability. Findings suggestive of goiter. Electronically Signed: Chadwick Ibanez MD at 15:23 EDT ,
== END | disposition home or self-care (01) ==
LOC: US 12:31
PROVIDERS: PCP Internal Medicine; Referring Provider Surgery; Visit Provider Surgery
DX: E04.2 Nontoxic multinodular goiter (principal)
CPT/HCPCS: 76536

== ENCOUNTER → 2022-04-01 | Outpatient (CLI) | payer OTHER, SELFPAY ==
[2017-05-28 15:21] VITALS: BMI 26.0
[2021-11-18 08:41] VITALS: BMI 26.0
[2022-04-01] MEDS: DENOSUMAB 60 MG/ML SC (11:08)
[2022-04-01 11:12] VITALS: BP 135/63; PULSE 64; RESP 16; TEMP 36.3; O2SAT 98
== END | disposition home or self-care (01) ==
LOC: MEDOUTP 09:33
PROVIDERS: PCP Internal Medicine; Referring Provider Internal Medicine Endocrinology, Diabetes & Metabolism; Visit Provider Internal Medicine Endocrinology, Diabetes & Metabolism
DX: M81.0 Age-related osteoporosis without current pathological fracture (principal)
CPT/HCPCS: 96372; J0897

== ENCOUNTER → 2022-06-08 | Outpatient (CLI) | payer OTHER, SELFPAY ==
[2021-11-18 08:41] VITALS: BMI 26.0
[2022-06-08 08:52] LABS: Hematocrit 39.1 % (37-47); Hemoglobin 12.7 g/dL (12.0-15.0); Mean Corp Hgb Conc 32.5 g/dL (32-36); Mean Corpuscular Hgb 27.5 pg (27.0-32.0); Mean Corpuscular Volume 84.6 fL (81-99); Mean Platelet Vol. 8.9 fl (6.2-12.0); Platelet Count 373 K/mm3 (150-450); RBC Distribution Width CV 13.4 % (11.6-14.6); RBC Distribution Width SD 41.4 fl (35.1-43.9); Red Blood Count 4.62 M/mm3 (4.2-5.4)
[2022-06-08 09:06] LABS: Protein, Urine (Random) 20.9 mg/dL (<11.9); Protein:Creat Ratio 192 mg/g CRE (0-200)
[2022-06-08 09:23] LABS: Albumin, Serum 3.9 g/dL (3.2-5.0); BUN 21 mg/dL (7-18); BUN/Creat Ratio 25.3 RATIO (10-20); Calcium,Total 9.2 mg/dL (8.5-10.1); Chloride 100 mmol/L (98-107); Creatinine, Serum 0.83 mg/dL (0.55-1.02); EST Glomerular Filtration Rate 72 mL/min (>60); Est Glom Filt Rate - Afr Amer 88 mL/min (>60); Glucose 84 mg/dL (74-106); PTHIN 23.7 pg/mL (18.4-80.1); Phosphorus 3.7 mg/dL (2.5-4.9); Potassium 3.6 mmol/L (3.5-5.1); Sodium Level 133 mmol/L (136-145)
[2022-06-08 09:25] LABS: Vitamin D,25 Hydroxy 50.1 ng/mL
== END | disposition home or self-care (01) ==
LOC: PAVLAB 08:34
PROVIDERS: PCP Internal Medicine; Referring Provider Nurse Practitioner Adult Health; Visit Provider Nurse Practitioner Adult Health
DX: R32 Unspecified urinary incontinence (principal); I10 Essential (primary) hypertension; D50.9 Iron deficiency anemia, unspecified
CPT/HCPCS: 36415; 80069; 82306; 82570; 83970; 84156; 85027

== ENCOUNTER → 2022-06-22 | Outpatient (CLI) | payer OTHER, SELFPAY ==
[2021-11-18 08:41] VITALS: BMI 26.0
--- NOTE | 2022-06-22 17:25 | RAD_ITS ---
INDICATION: cough EXAMINATION/TECHNIQUE: X-RAY - XR Chest 2 Views COMPARISON: 11/05/[address] and radiograph. Findings: Frontal and lateral views of the chest. LUNG PARENCHYMA: No acute focal airspace disease or mass lesion. PLEURA: No pleural effusion. No pneumothorax. HEART/GREAT VESSELS: Cardiomediastinal silhouette is unremarkable. BONES: Stable thoracic dextroscoliosis with thoracolumbar level vertebral plasty cement. Multilevel vertebral body compression fractures as well. Impression Stable chest with no acute disease. Electronically Signed: Grupo Larkin MD at 21:18 EDT , RAD/Chest PA and Lateral IMPRESSION: undefined
== END | disposition home or self-care (01) ==
PROVIDERS: PCP Internal Medicine; Referring Provider Nurse Practitioner Family; Visit Provider Nurse Practitioner Family
DX: R05.9 Cough, unspecified (principal)
CPT/HCPCS: 71046

== ENCOUNTER → 2022-08-19 | Outpatient (CLI) | payer OTHER, SELFPAY ==
[2021-11-18 08:41] VITALS: BMI 26.0
--- NOTE | 2022-08-19 08:49 | CT_ITS ---
STUDY: CTA OF THE BRAIN REASON FOR EXAM: Female, 72 years old. DIPLOPIA RADIATION DOSAGE (If Supplied By Facility): CTDIvol = ( 27.82 ) mGy, DLP = ( 1168.59 ) mGycm TECHNIQUE: CT angiography was performed with a multi-detector CT scanner. Data acquisition was obtained from the skull base through the vertex following intravenous administration of IV 100mL [id number]-[id number]. MIP images were reconstructed from the axial data set. Post-processing of the angiographic images was performed, with multiplanar reformation and 3D reconstruction. Individualized dose optimization techniques were used for this CT. COMPARISON: None. FINDINGS: Normal bilateral petrous carotid arteries. There is calcified plaque formation of the right cavernous carotid artery, without a cross-sectional luminal stenosis. There is calcified plaque formation of the left cavernous carotid artery, without a cross-sectional luminal stenosis. Normal right A1 segments of the anterior cerebral artery. Normal left A1 segments of the anterior cerebral artery. Normal intact anterior communicating artery (ACOM). Normal bilateral A2 segments of the anterior cerebral arteries. Normal right M1 and M2 segments of the middle cerebral arteries, with a normal M1 bifurcation. Normal left M1 and M2 segments of the middle cerebral arteries, with a normal M1 bifurcation. There is a persistent origin of the right posterior cerebral artery with absence of the posterior communicating artery (PCOM). Normal left posterior communicating artery (PCOM). Normal bilateral vertebral arteries. Normal basilar artery with a normal basilar bifurcation. The visualized bilateral superior cerebellar (SCA) arteries are normal. Normal bilateral P1, P2 and visualized P3 segments of the posterior cerebral arteries. There is no demonstrated aneurysm of the hughes of Roth. Cerebral atrophy. Multiple areas of decreased attenuation in a periventricular distribution consistent with chronic small vessel ischemic changes. There is also evidence of a tiny lacunar infarcts in the insular cortex of both temporal lobes. The age of which cannot be determined on this single study. CT/CTA Head W/WO Contrast IMPRESSION: Normal hughes of Roth without a demonstrated aneurysm or hemodynamically significant stenosis. Chronic changes seen in the brain. Electronically Signed: Win Vizcaino MD at 9:33 EDT ,
[2022-08-19 09:15] LABS: CREATININE FINGERSTICK < 0.9 mg/dL (0.55-1.02); EGFR FINGERSTICK > 60.0000 mL/min (>60)
[2022-08-19 10:09] LABS: Absolute Lymphocyte Count 1.21 X10^3/uL (0.83-4.51); Hematocrit 38.4 % (37-47); Hemoglobin 12.9 g/dL (12.0-15.0); Lymphocyte # 1.21 X10^3/ul (0.83-4.51); Lymphocyte % 17.8 % (19-41); Mean Corp Hgb Conc 33.6 g/dL (32-36); Mean Corpuscular Hgb 28.7 pg (27.0-32.0); Mean Corpuscular Volume 85.5 fL (81-99); Mean Platelet Vol. 8.7 fl (6.2-12.0); Monocyte# 0.56 X10^3/uL; Monocyte% 8.2 % (0-10); NRBC Flagged by Analyzer 0 % (0-5); Neutrophil # 5.01 X10^3/uL (2.7-7.7); Neutrophil % 73.6 % (47-70); Platelet Count 381 K/mm3 (150-450); RBC Distribution Width CV 14.1 % (11.6-14.6); RBC Distribution Width SD 44.1 fl (35.1-43.9); Red Blood Count 4.49 M/mm3 (4.2-5.4); White Blood Count 6.8 K/mm3 (4.4-11.0)
[2022-08-19 10:17] LABS: Erythrocyte Sedimentation Rate 5 mm/hr (0-30)
[2022-08-19 10:32] LABS: CRP 4.03 mg/L (0.0-3.0); Thyroid Stim Hormone (TSH) 1.84 uIU/mL (0.358-3.74)
[2022-08-21 07:08] LABS: Thyroid Stim Immunoglob <0.10 IU/L (0.00-0.55)
== END | disposition home or self-care (01) ==
PROVIDERS: PCP Internal Medicine; Referring Provider Ophthalmology; Visit Provider Ophthalmology
DX: H53.2 Diplopia (principal)
CPT/HCPCS: 36415; 70496; 84439; 84443; 84445; 85025; 85652; 86140; Q9967

== ENCOUNTER 2022-10-06 13:03 | Outpatient (CLI) | payer OTHER, SELFPAY ==
[2021-11-18 08:41] VITALS: BMI 26.0
[2022-10-06 13:15] VITALS: BP 119/73; PULSE 67; RESP 16; TEMP 36.6; O2SAT 100
[2022-10-06] MEDS: DENOSUMAB 60 MG/ML SC (13:27)
== END 2022-10-06 13:04 | disposition home or self-care (01) ==
PROVIDERS: PCP Internal Medicine; Referring Provider Internal Medicine; Visit Provider Internal Medicine
DX: M81.0 Age-related osteoporosis without current pathological fracture (principal)
CPT/HCPCS: 96372; J0897

== ENCOUNTER → 2022-12-10 | Outpatient (CLI) | payer OTHER, SELFPAY ==
[2021-11-18 08:41] VITALS: BMI 26.0
--- NOTE | 2022-12-10 08:17 | BI_ITS ---
MAMMOGRAPHY - BILATERAL SCREENING REASON FOR EXAM: Female, 72 years old. Routine annual screening examination. PERTINENT HISTORY: Non-contributory. TECHNIQUE: Digital bilateral breast earnest (3D mammographic acquisition) in the CC and MLO projections. 2-D mediolateral oblique (MLO) and craniocaudad (CC) views of both breasts were obtained. CAD: Full Field Digital Mammography with Computer Added Detection was performed. COMPARISON: Comparison is made with prior study November 24, 2021 and October 23, 2020. FINDINGS: Breast Composition: The breasts are heterogeneously dense, which may obscure small masses. There are no dominant masses or suspicious calcifications. No other significant abnormalities are identified. There has been no significant change since the prior study. BI/SCRN MAMM (CAD)W/EARNEST BILAT IMPRESSION: Stable bilateral screening mammogram. Yearly follow-up mammogram recommended. (A) ASSESSMENT CATEGORY: BIRADS Category 1: Negative. A letter regarding these results will be sent to the patient by the facility within 30 days. Approximately 10% of breast cancers are not detected by mammography. A normal mammogram should not delay biopsy of a clinically suspicious abnormality. [id number] Electronically Signed: Win Vizcaino MD at 9:09 EDT ,
== END | disposition home or self-care (01) ==
LOC: OPBI 08:15
PROVIDERS: PCP Internal Medicine; Referring Provider Nurse Practitioner Women's Health; Visit Provider Nurse Practitioner Women's Health
DX: Z12.31 Encounter for screening mammogram for malignant neoplasm of breast (principal)
CPT/HCPCS: 77063; 77067

== ENCOUNTER → 2022-12-21 | Outpatient (CLI) | payer OTHER, SELFPAY ==
[2021-11-18 08:41] VITALS: BMI 26.0
== END | disposition home or self-care (01) ==
LOC: PAVLAB 08:23
PROVIDERS: PCP Internal Medicine; Referring Provider Urology; Visit Provider Urology
DX: D50.9 Iron deficiency anemia, unspecified (principal); R73.02 Impaired glucose tolerance (oral)

== ENCOUNTER 2023-04-12 12:59 | Outpatient (CLI) | payer MEDICARE, OTHER, SELFPAY ==
[2021-11-18 08:41] VITALS: BMI 26.0
[2023-04-12 13:21] VITALS: BP 142/74; PULSE 66; RESP 16; TEMP 36.3
[2023-04-12] MEDS: DENOSUMAB 60 MG/ML SC (13:27)
== END 2023-04-12 13:00 | disposition home or self-care (01) ==
PROVIDERS: PCP Internal Medicine; Referring Provider Internal Medicine; Visit Provider Internal Medicine
DX: M81.0 Age-related osteoporosis without current pathological fracture (principal)
CPT/HCPCS: 96372; J0897

== ENCOUNTER → 2023-06-28 | Outpatient (CLI) | payer MEDICARE, OTHER, SELFPAY ==
[2021-11-18 08:41] VITALS: BMI 26.0
[2023-06-28 12:39] LABS: Hematocrit 37.1 % (37-47); Hemoglobin 12.1 g/dL (12.0-15.0); Mean Corp Hgb Conc 32.6 g/dL (32-36); Mean Corpuscular Hgb 28.3 pg (27.0-32.0); Mean Corpuscular Volume 86.9 fL (81-99); Mean Platelet Vol. 9.5 fl (6.2-12.0); Platelet Count 401 K/mm3 (150-450); RBC Distribution Width CV 13.1 % (11.6-14.6); RBC Distribution Width SD 41.4 fl (35.1-43.9); Red Blood Count 4.27 M/mm3 (4.2-5.4); White Blood Count 6.9 K/mm3 (4.4-11.0)
[2023-06-28 13:08] LABS: Anion Gap 6 (5-15); BUN 18 mg/dL (7-18); BUN/Creat Ratio 24.1 RATIO (10-20); Calcium,Total 9.2 mg/dL (8.5-10.1); Chloride 103 mmol/L (98-107); Creatinine, Serum 0.75 mg/dL (0.55-1.02); EST Glomerular Filtration Rate 82 mL/min (>60); Est Glom Filt Rate - Afr Amer 99 mL/min (>60); Glucose 82 mg/dL (74-106); Potassium 3.8 mmol/L (3.5-5.1); Sodium Level 136 mmol/L (136-145)
[2023-06-28 13:32] LABS: Protein, Urine (Random) 15.9 mg/dL (<11.9)
== END | disposition home or self-care (01) ==
LOC: LAB 11:45
PROVIDERS: PCP Internal Medicine; Referring Provider Internal Medicine Nephrology; Visit Provider Internal Medicine Nephrology
DX: E87.1 Hypo-osmolality and hyponatremia (principal); D50.9 Iron deficiency anemia, unspecified
CPT/HCPCS: 36415; 80048; 82570; 84156; 85027

== ENCOUNTER → 2023-10-06 | Outpatient (CLI) | payer MEDICARE, OTHER, SELFPAY ==
[2021-11-18 08:41] VITALS: BMI 26.0
--- NOTE | 2023-10-06 11:40 | US_ITS ---
STUDY: THYROID ULTRASOUND REASON FOR EXAM: Female, 73 years old. Thyroid Ultrasound -- F/U NODULES -- GOITER TECHNIQUE: Ultrasound evaluation of the thyroid was performed with real-time and static betancourt-scale imaging. COMPARISON: 12/08/2021 FINDINGS: RIGHT LOBE: The right lobe of the thyroid gland measures 4.4 x 1.9 x 1.4 cm. There is a heterogeneous echotexture. Nodule 1: No change in the 10 x 8 x 9 mm solid isoechoic wider than tall ill-defined margin nodule with no echogenic foci (TR 3) in the lateral right lobe consistent with an adenoma. Nodule 2: No change in the 8 x 6 x 8 mm solid isoechoic wider than tall smoothly marginated nodule with peripheral calcifications (TR 4) in the anterior right lobe consistent with an adenoma. LEFT LOBE: The left lobe of the thyroid gland measures 4.2 x 1.7 x 1.8 cm. There is a heterogeneous echotexture. Nodule 3: No change in the 12 x 12 x 10 mm solid isoechoic wider than tall ill-defined margin nodule and no echogenic foci (TR 3) in the lateral left lobe consistent with an adenoma. Nodule 4: No change in the 10 x 6 x 8 mm solid isoechoic wider than tall ill-defined margin nodule and no echogenic foci with posterior 3) in the lateral left lobe consistent with an adenoma. ISTHMUS: The isthmus measures 2 mm thick. Nodule 5: No change in the 12 x 8 x 5 mm solid hypoechoic wider than tall ill-defined margin nodule and no echogenic foci (TR 4) in the left side of the isthmus and follow-up ultrasound is recommended in 1 year.. The regional lymph nodes are normal. US/Thyroid IMPRESSION: No change in multinodular thyroid gland and follow-up ultrasound is recommended one year. Electronically Signed: Michael Mckenna MD at 9:07 EDT ,
== END | disposition home or self-care (01) ==
PROVIDERS: PCP Internal Medicine; Referring Provider Surgery; Visit Provider Surgery
DX: E04.2 Nontoxic multinodular goiter (principal)
CPT/HCPCS: 76536

== ENCOUNTER 2023-10-11 12:44 | Outpatient (CLI) | payer MEDICARE, OTHER, SELFPAY ==
[2021-11-18 08:41] VITALS: BMI 26.0
[2023-10-11 12:45] VITALS: BP 127/64; PULSE 69; RESP 16; TEMP 36.8; O2SAT 99
[2023-10-11] MEDS: DENOSUMAB 60 MG/ML SC (12:50)
== END 2023-10-11 23:59 | disposition home or self-care (01) ==
LOC: MEDOUTP 12:44
PROVIDERS: PCP Internal Medicine; Referring Provider Internal Medicine; Visit Provider Internal Medicine
DX: M81.0 Age-related osteoporosis without current pathological fracture (principal)
CPT/HCPCS: 96372; J0897

== ENCOUNTER → 2023-10-21 | Outpatient (CLI) | payer MEDICARE, OTHER, SELFPAY ==
[2021-11-18 08:41] VITALS: BMI 26.0
[2023-10-21 11:28] LABS: Absolute Lymphocyte Count 1.48 X10^3/uL (0.83-4.51); Absolute Neutrophil Count 3.7 X10^3/uL (2.0-7.7); Hematocrit 38.1 % (37-47); Hemoglobin 12.4 g/dL (12.0-15.0); Lymphocyte # 1.48 X10^3/ul (0.83-4.51); Lymphocyte % 25.4 % (19-41); Mean Corp Hgb Conc 32.5 g/dL (32-36); Mean Corpuscular Hgb 28.2 pg (27.0-32.0); Mean Corpuscular Volume 86.6 fL (81-99); Mean Platelet Vol. 8.8 fl (6.2-12.0); Monocyte# 0.57 X10^3/uL; Monocyte% 9.8 % (0-10); NRBC Flagged by Analyzer 0 % (0-5); Neutrophil # 3.73 X10^3/uL (2.7-7.7); Neutrophil % 64.1 % (47-70); Platelet Count 400 K/mm3 (150-450); RBC Distribution Width CV 12.3 % (11.6-14.6); RBC Distribution Width SD 39.3 fl (35.1-43.9); White Blood Count 5.8 K/mm3 (4.4-11.0)
[2023-10-21 11:32] LABS: Mucous, Urine 0 SEEN /hpf (<or=2+); White Blood Cells 0 SEEN /hpf (0-5)
[2023-10-21 11:33] LABS: Color, Urine Yellow (Yellow); Glucose, Dipstick Normal (Normal); Ketone-Dipstick Negative (Negative); Leukocyte Esterase-Dipstick 25 /ul (Negative); Nitrite-Dipstick Negative (Negative); Occult Blood-Urine Negative /ul (Negative); Protein-Dipstick Negative (Negative); Urine Bilirubin Dipstick Negative (Negative); Urine Clarity Clear (Clear); Urine Urobilinogen Normal (Normal)
[2023-10-21 11:40] LABS: Bacteria 2+ /hpf (None Seen); Red Blood Cells-Urine 0-5 SEEN /hpf (0-5); Squamous Epithelial Cells - UA 0-5 SEEN /hpf (5-10)
[2023-10-21 11:56] LABS: ALB/GLOB Ratio 1.1 RATIO (0.9-2.4); AST(SGOT) 18 U/L (15-37); Alanine Aminotransfer ALT/SGPT 21 U/L (13-56); Albumin, Serum 3.8 g/dL (3.2-5.0); Alkaline Phosphatase 95 U/L (45-117); Anion Gap 6 (5-15); BUN 13 mg/dL (7-18); BUN/Creat Ratio 16.7 RATIO (10-20); Calcium,Total 8.7 mg/dL (8.5-10.1); Chloride 100 mmol/L (98-107); Cholesterol 173 mg/dL (200); Creatinine, Serum 0.78 mg/dL (0.55-1.02); EST Glomerular Filtration Rate 77 mL/min (>60); Est Glom Filt Rate - Afr Amer 94 mL/min (>60); Globulin 3.4 g/dL (2.2-4.2); Glucose 101 mg/dL (74-106); High Density Lipoprotein 70 mg/dL; Protein, Total 7.2 g/dL (6.4-8.2); Sodium Level 134 mmol/L (136-145); Triglycerides 82 mg/dL; Very Low Density Lipoprotein 16 mg/dL (5-40)
[2023-10-21 11:57] LABS: Microalbumin,Random Urine 6.6 mg/L (NO RANGE EST.); Microalbumin:Creatinine Ratio 6.1 mg/g CRE (<30 mg/g CRE)
--- NOTE | 2023-10-21 11:57 | EKG12_ITS ---
Test Reason : ROUTINE Blood Pressure : / mmHG Vent. Rate : 069 BPM Atrial Rate : 069 BPM P-R Int : 180 ms QRS Dur : 092 ms QT Int : 418 ms P-R-T Axes : 047 023 042 degrees QTc Int : 447 ms Normal sinus rhythm Normal ECG Confirmed by James Ansari ([id number]), movie editor ANDERSON HICKS ([id number]) on 10/25/2023 9:56:46 AM Referred By: Shila Dinh Confirmed By:James Ansari
== END | disposition home or self-care (01) ==
LOC: PSN 11:55
PROVIDERS: PCP Internal Medicine; Referring Provider Internal Medicine; Visit Provider Internal Medicine
DX: R42 Dizziness and giddiness (principal); R61 Generalized hyperhidrosis; I10 Essential (primary) hypertension; R13.10 Dysphagia, unspecified
CPT/HCPCS: 36415; 80053; 80061; 81001; 82043; 82570; 84443; 85025; 93005; 93225; 93226

== ENCOUNTER → 2023-11-04 | Outpatient (CLI) | payer MEDICARE, OTHER, SELFPAY ==
[2021-11-18 08:41] VITALS: BMI 26.0
--- NOTE | 2023-11-04 10:15 | RAD_ITS ---
STUDY: X-RAY - ESOPHAGUS (BARIUM SWALLOW) WITH FLUOROSCOPY REASON FOR EXAM: Female, 73 years old. Dysphagia with 13mm tab -- dysphagia with 13mm tab TECHNIQUE: 56 fluoroscopic images view(s) of the esophagus were obtained following swallowing of barium. FLUOROSCOPY TIME (if supplied): (42nd) minutes/seconds COMPARISON: None. FINDINGS: There is no demonstrated esophageal foreign body. There is no demonstrated stricture or mucosal abnormality. Normal gastroesophageal junction, without a demonstrated hiatal hernia. The patient ingested a 12 mm tablet of barium without any difficulty. Normal visualized aortic arch and descending thoracic aorta. Normal visualized pulmonary parenchyma. Prior vertebroplasty of the lumbar vertebrae. RAD/Esophagus Dual Contrast IMPRESSION: Normal plain film x-ray examination (barium swallow) of the esophagus. Electronically Signed: Win Vizcaino MD at 10:45 EDT ,
== END | disposition home or self-care (01) ==
PROVIDERS: PCP Internal Medicine; Referring Provider Internal Medicine; Visit Provider Internal Medicine
DX: R13.10 Dysphagia, unspecified (principal)
CPT/HCPCS: 74221

== ENCOUNTER → 2023-12-22 | Outpatient (CLI) | payer MEDICARE, OTHER, SELFPAY ==
[2021-11-18 08:41] VITALS: BMI 26.0
--- NOTE | 2023-12-22 12:59 | BI_ITS ---
MAMMOGRAPHY - BILATERAL SCREENING 3-D TOMOSYNTHESIS REASON FOR EXAM: Female, 73 years old. Screening for breast cancer PERTINENT HISTORY: No significant family history. TECHNIQUE: 2-D mammograms and 3-D Tomosynthesis of the breast (s) were performed. CAD was performed. COMPARISON: 12/10/2022 FINDINGS: The breast composition is heterogeneously dense that can obscure small breast masses. Scattered benign calcifications are seen. No dense spiculated masses or suspicious microcalcifications are identified. No architectural distortion is identified. There is no skin thickening or retraction. There has been no significant change since the prior study. BI/SCRN MAMM (CAD)W/EARNEST BILAT IMPRESSION: No mammographic signs of malignancy. Routine yearly mammograms recommended. ASSESSMENT CATEGORY: BIRADS Category 1: Negative. A letter regarding these results will be sent to the patient by the facility within 30 days. FOLLOW UP RECOMMENDATION: Yearly follow up mammogram recommended. (A) Approximately 10% of breast cancers are not detected by mammography. A normal mammogram should not delay biopsy of a clinically suspicious abnormality. Electronically Signed: Michael Mckenna MD at 14:00 EDT ,
== END | disposition home or self-care (01) ==
LOC: OPBI 12:59
PROVIDERS: PCP Internal Medicine; Referring Provider Nurse Practitioner Women's Health; Visit Provider Nurse Practitioner Women's Health
DX: Z12.31 Encounter for screening mammogram for malignant neoplasm of breast (principal)
CPT/HCPCS: 77063; 77067

== ENCOUNTER 2024-04-10 12:40 | Outpatient (CLI) | payer MEDICARE, OTHER, SELFPAY ==
[2021-11-18 08:41] VITALS: BMI 26.0
[2024-04-10] MEDS: DENOSUMAB 60 MG/ML SC (13:20)
[2024-04-10 13:24] VITALS: BP 137/75; PULSE 67; RESP 16; TEMP 36.7; O2SAT 98
== END 2024-04-10 23:59 | disposition home or self-care (01) ==
LOC: MEDOUTP 12:41
PROVIDERS: PCP Internal Medicine; Referring Provider Internal Medicine; Visit Provider Internal Medicine
DX: M81.0 Age-related osteoporosis without current pathological fracture (principal)
CPT/HCPCS: 96372; J0897

== ENCOUNTER 2024-08-07 09:03 | Day surgery (SDC) | payer MEDICARE, OTHER, SELFPAY ==
[2021-11-18 08:41] VITALS: BMI 26.0
[2024-08-07] VITALS (8 sets, daily range): BP systolic 140–151; BP diastolic 79–88; PULSE 57–72; RESP 14–20; TEMP 36.4–36.5; O2SAT 99–100; BMI 27.8
[2024-08-07] MEDS: Lactated Ringers 1,000 ML 15 ML IV (09:32)
--- NOTE | 2024-08-07 09:38 | PCM.PRE.AN2 ---
ASA Classification* ASA Classification ASA Classification: 2 (Anemia, HTN, anxiety/depression) Assessment & Plan Anesthesia* Anesthesia Assessment Anesthesia Assessment: Discussed sedation and/or anesthesia options, risks, benefits, and alternatives with patient/parents/legal guardian/POA. Questions invited. The patient/parents/legal guardian/POA seems to understand and agrees to proceed with anesthesia plan. Reviewed the physical assessment, medical history, allergy history and patient home medications list prior to surgery/procedure/anesthetic and documented any changes. Performed airway and anesthesia risk assessments. Anesthesia Type Anesthesia Type: General History Source History Obtained from:: Patient and Chart Anesthesia Focused Assessment* Temperature: 97.7 F Pulse Rate: 72 Blood Pressure: 151/88 Respiratory Rate: 14 Pulse Ox: 100 Oxygen Delivery Method: Room Air Airway Assessment Mouth opens: >3 cm Mallampati Score: II Teeth Condition: Intact Neck Range of motion (ROM): Full ROM Focused Labs Anesthesia Preop lab: CBC WBC 5.8 K/mm3 (4.4-11.0) 10/21/23 11:15 10/21/23 RBC 4.40 M/mm3 (4.2-5.4) 10/21/23 11:15 10/21/23 Hgb 12.4 g/dL (12.0-15.0) 10/21/23 11:15 10/21/23 Hct 38.1 % (37-47) 10/21/23 11:15 10/21/23 Plt Count 400 K/mm3 (150-450) 10/21/23 11:15 10/21/23 CHEMISTRY Potassium 4.0 mmol/L (3.5-5.1) 10/21/23 11:15 10/21/23 Sodium 134 mmol/L (136-145) L 10/21/23 11:15 10/21/23 Magnesium 2.1 mg/dL (1.6-2.6) 01/17/20 13:25 01/17/20 Phosphorus 2.9 mg/dL (2.5-4.9) 12/21/22 08:55 12/21/22 BUN 13 mg/dL (7-18) 10/21/23 11:15 10/21/23 Creatinine 0.78 mg/dL (0.55-1.02) 10/21/23 11:15 10/21/23 Glucose 101 mg/dL (74-106) 10/21/23 11:15 10/21/23 TSH 1.150 uIU/mL (0.358-3.740) 10/21/23 11:15 10/21/23 COAG Pre-Assessment Diagnosis/Proposed Procedure Planned Operative Procedure(s): COLONOSCOPY Anesthesia History Anesthesia History - applications engineer: Anesthesia History - applications engineer Hx Hospitalization No 08/04/24 08:39 Any Problems With Anesthesia No 08/04/24 08:39 Cholinesterase deficiency No 08/04/24 08:39 You/Your Family Experience No 08/04/24 08:39 fever (hyperthermia) with Relationship Recent Exposure to Contagious No 11/18/21 08:41 Disease Does patient have nerve No 08/04/24 08:39 stimulator Patient instructed to have device shut off --Does patient have Pacemaker No 08/07/24 09:24 or ICD? When Was Last Pacemaker Check QUESTION #4 FULL TEXT: You/Your Family Experience fever (hyperthermia) with Anesthesia Last Oral Intake Last Oral intake: Last Oral Intake NPO since 22:00 08/07/24 09:24 Meds taken in AM with sips of Yes 08/07/24 09:24 water? Meds patient instructed to take am of surgery PONV PONV - applications engineer: PONV - applications engineer Female Yes 08/04/24 08:39 HX of Motion Sickness No 08/04/24 08:39 HX of N/V After Surgery No 08/04/24 08:39 Non-Smoker Yes 08/04/24 08:39 Duration of Surgery greater No 08/04/24 08:39 than 60 minutes Number of Risk Factors 2 08/04/24 08:39 PONV Score Moderate Risk 08/04/24 08:39 Height & Weight Height & Weight: Anesthesia: Height & Weight Height 5 ft 8 in 08/07/24 09:24 Weight: 83 kg 08/07/24 09:24 Body Mass Index (BMI) 27.8 08/07/24 09:24 Respiratory Assessment Respiratory Assessment - applications engineer: Respiratory Tract Infection Hx - applications engineer Hx Respiratory Tract Infection No 08/04/24 08:39 STOP Sleep Apnea STOP Sleep Apnea - applications engineer: STOP Sleep Apnea - applications engineer Hx Hypertension Yes 08/04/24 08:39 Hx Sleep Apnea Yes 08/04/24 08:39 CPAP Yes 08/04/24 08:39 BIPAP No 08/04/24 08:39 Do you snore loudly (louder than talking or can be heard Do you often feel tired/ fatigued/ sleepy during daytime? Has anyone observed you stop breathing during sleep? STOP Results Positive 08/04/24 08:39 QUESTION #5 FULL TEXT : Do you snore loudly (louder than talking or can be heard through closed doors)? 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 Specify any problems Hx of Preganancy in last 3 No 08/04/24 08:39 Months Nurse Filling Out Transfusion JZOVICENTE 08/04/24 08:39 & Questions: Date: 08/04/24 08/04/24 08:39 Time: 08:42 08/04/24 08:39 Patient unable to answer at this time (ie. confused, unrespo /Reproduction History /Reproductive History - applications engineer: /Reproductive Hx- applications engineer Hx Now No 08/04/24 08:39 Gestational Age (in weeks): EDC: Hx Hx Para Hx Section SAB No 08/04/24 08:39 Active Medications Active Medications: Current Medications Generic Name Dose Route Start Last Admin Trade Name Freq PRN Reason Stop Dose Admin Lactated Ringer's 1,000 mls @ 15 mls/hr 08/07/24 09:15 08/07/24 09:32 IV 15 mls/hr .Q48H [place] Administration PFSH Medical History (Updated 08/04/24 @ 08:39 by Farida Smith) Hx of osteopenia Wears partial dentures Heartburn Non-smoker CPAP (continuous positive airway pressure) dependence Sleep apnea History of stress test History of Holter monitoring Anxiety Arthritis Herniated disc Compression fracture IBS (irritable bowel syndrome) Back problem Multiple thyroid nodules Iron deficiency anemia Hypercholesterolemia Depression OCD (obsessive compulsive disorder) RLS (restless legs syndrome) Migraine Small vessel disease, cerebrovascular GERD (gastroesophageal reflux disease) Rosacea Pain in unspecified joint Osteoporosis Gasping for breath Abdominal bloating Urinary urgency Hematuria FREDY (obstructive sleep apnea) HTN (hypertension) Acute pharyngitis Cough Wheezing Headache Foot fracture, right Home Medications ?Medication ?Instructions ?Recorded ?Last Taken ?Type omeprazole 20 mg capsule,delayed 20 mg PO DAILY gerd 06/29/14 08/07/24 07:00 History release eletriptan 20 mg tablet (Relpax) 20 mg PO PRN PRN Migraine Symptoms 10/20/17 07/20/18 History cholecalciferol (vitamin D3) 25 1,000 unit PO DAILY supplement 07/27/18 07/25/18 History mcg (1,000 unit) tablet cyclobenzaprine 10 mg tablet 10 mg PO HS PRN Pain/Inflammation 12/22/18 Unknown History multivitamin 1 cap PO DAILY 12/22/18 Unknown History ferrous sulfate 325 mg (65 mg 325 mg PO DAILY supplement 12/30/18 08/04/24 History iron) tablet cpap #1 ea 11/09/19 Unknown History calcium carbonate 600 mg PO DAILY supplement 11/14/20 Unknown History denosumab 60 mg/mL subcutaneous 60 mg subcut [id number] #1 mL 11/14/20 Unknown Rx syringe (Prolia) diltiazem HCl 240 mg 240 mg PO DAILY 12/12/20 08/07/24 07:00 History capsule,extended release 24 hr clobetasol 0.05 % topical ointment 1 applic topical .COMPLEX #15 grams 11/29/23 Unknown Rx estradiol 0.01% (0.1 mg/gram) See Rx Instructions vaginal 2XW 11/29/23 Unknown Rx vaginal cream #42.5 grams buspirone 15 mg tablet 15 mg PO BID 12/09/23 08/07/24 07:00 History clonidine HCl 0.1 mg tablet 0.1 mg PO BID 12/09/23 08/07/24 07:00 History fluoxetine 40 mg capsule 40 mg PO QDAY 12/09/23 08/07/24 07:00 History magnesium 500 tab PO .QD 08/04/24 Unknown History Allergy/AdvReac Type Severity Reaction Status Date / Time No Known Allergies Allergy Verified 08/07/24 09:22 Family History (Reviewed 12/09/23 @ 13:21 by Amy Kearney METALS SALES REPRESENTATIVE, METALS SALES REPRESENTATIVE-C) Father Diabetes CVA (cerebral vascular accident) Mother Rheumatoid arthritis Macular degeneration Hypertension Osteoporosis Brother Diabetes Brother Diabetes Grandfather Diabetes Surgical History (Updated 08/04/24 @ 08:51 by Farida Smith) Hx of kyphoplasty Status post biopsy of thyroid gland (~12/2018) S/P D&C (status post dilation and curettage) History of appendectomy History of cholecystectomy Social History (Reviewed 12/09/23 @ 13:21 by Amy Kearney METALS SALES REPRESENTATIVE, METALS SALES REPRESENTATIVE-C) household members: spouse housing: house 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
--- NOTE | 2024-08-07 10:05 | H&P.OPEN ---
[facility] - General General Date of Service: 08/07/24 HPI Narrative TORIBIO YAO, is a 73 F who presents for screening colonoscopy. Patient's last colonoscopy was 10 years ago negative per patient. Patient denies any chronic abdominal pain/nausea/vomiting/reflux. Patient denies any family history of colon cancer. Patient has bowel movements daily or every other day denies any blood. [facility] Medical History (Updated 08/07/24 @ 10:[address] Jazzy Cr MD) Hx of osteopenia Wears partial dentures Heartburn Non-smoker CPAP (continuous positive airway pressure) dependence Sleep apnea History of stress test History of Holter monitoring Anxiety Arthritis Herniated disc Compression fracture IBS (irritable bowel syndrome) Back problem Multiple thyroid nodules Iron deficiency anemia Hypercholesterolemia Depression OCD (obsessive compulsive disorder) RLS (restless legs syndrome) Migraine Small vessel disease, cerebrovascular GERD (gastroesophageal reflux disease) Rosacea Pain in unspecified joint Osteoporosis Gasping for breath Abdominal bloating Urinary urgency Hematuria FREDY (obstructive sleep apnea) HTN (hypertension) Acute pharyngitis Cough Wheezing Headache Foot fracture, right Home Medications ?Medication ?Instructions ?Recorded ?Last Taken ?Type omeprazole 20 mg capsule,delayed 20 mg PO DAILY gerd 06/29/14 08/07/24 07:00 History release eletriptan 20 mg tablet (Relpax) 20 mg PO PRN PRN Migraine Symptoms 10/20/17 07/20/18 History cholecalciferol (vitamin D3) 25 1,000 unit PO DAILY supplement 07/27/18 07/25/18 History mcg (1,000 unit) tablet cyclobenzaprine 10 mg tablet 10 mg PO HS PRN Pain/Inflammation 12/22/18 Unknown History multivitamin 1 cap PO DAILY 12/22/18 Unknown History ferrous sulfate 325 mg (65 mg 325 mg PO DAILY supplement 12/30/18 08/04/24 History iron) tablet cpap #1 ea 11/09/19 Unknown History calcium carbonate 600 mg PO DAILY supplement 11/14/20 Unknown History denosumab 60 mg/mL subcutaneous 60 mg subcut [id number] #1 mL 11/14/20 Unknown Rx syringe (Prolia) diltiazem HCl 240 mg 240 mg PO DAILY 12/12/20 08/07/24 07:00 History capsule,extended release 24 hr clobetasol 0.05 % topical ointment 1 applic topical .COMPLEX #15 grams 11/29/23 Unknown Rx estradiol 0.01% (0.1 mg/gram) See Rx Instructions vaginal 2XW 11/29/23 Unknown Rx vaginal cream #42.5 grams buspirone 15 mg tablet 15 mg PO BID 12/09/23 08/07/24 07:00 History clonidine HCl 0.1 mg tablet 0.1 mg PO BID 12/09/23 08/07/24 07:00 History fluoxetine 40 mg capsule 40 mg PO QDAY 12/09/23 08/07/24 07:00 History magnesium 500 tab PO .QD 08/04/24 Unknown History Allergy/AdvReac Type Severity Reaction Status Date / Time No Known Allergies Allergy Verified 08/07/24 09:22 Family History (Reviewed 12/09/23 @ 13:21 by Amy Kearney SENIOR WEB APPLICATIONS DEVELOPER, SENIOR WEB APPLICATIONS DEVELOPER-C) Father Diabetes CVA (cerebral vascular accident) Mother Rheumatoid arthritis Macular degeneration Hypertension Osteoporosis Brother Diabetes Brother Diabetes Grandfather Diabetes Surgical History (Updated 08/04/24 @ 08:51 by Farida Smith) Hx of kyphoplasty Status post biopsy of thyroid gland (~12/2018) S/P D&C (status post dilation and curettage) History of appendectomy History of cholecystectomy Social History (Reviewed 12/09/23 @ 13:21 by Amy Kearney SENIOR WEB APPLICATIONS DEVELOPER, SENIOR WEB APPLICATIONS DEVELOPER-C) household members: spouse housing: house 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 pets and animals: Yes pets and animals: dog(s) Smoking Status: Never smoker alcohol intake: never substance use type: does not use caffeine: Yes what type of physical activity do you participate in: walking frequency: 3-4 times per week seatbelt use: always do you feel safe at home: Yes additional social history: -Preet- 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 [employer] Past Medical/Surgical History Planned Operation Planned Operative Procedure(s): COLONOSCOPY S.O.S: No Previous Hospitalizations/Surgeries HX Hospitalizations: No HX of Surgeries: JONEL 2011 APPE 1986 SCREENING COLONOSCOPY 2015 HYSTEROSCOPY D&C 06/09/18 cataracts bilat 2019 Any Problems With Anesthesia: No You/Your Family Experience Fever (Hyperthermia) With Anes: No Cholinesterase deficiency: No Cardiovascular Hx Chest Pain within Last 2 months: No Hx of Irregular Heartbeat and/or Afib: No Hx Heart Attack: No Hx Congestive Heart Failure: No Hx Rheumatic Fever: No Hx Hypertension: Yes Hx Internal Defibrillator: No Hx Pacemaker: No Hx Cardiac Catheterization: No Hx Cardiac Surgery/Stents/Etc.: No Hx Stress Test: Yes (15 YRS AGO) Hx Pain in Legs when Walking/Leg Cramps: No Respiratory Chronic Cough: No HX of Shortness of Breath: No Hoarseness: No Hx Chronic Obstructive Pulmonary Disease (COPD): No Hx Asthma: No Hx Emphysema: No Hx Sleep Apnea: Yes CPAP: Yes BIPAP: No Hx Respiratory Tract Infection/Cold (presently): No Result (for STOP score): Positive Hx Smoking: No Smoking Status: Never smoker Gastrointestinal Controlled With Meds: Yes Hx Gastrointestinal Disorders: Yes (IBS) Hx Gastrointestinal Bleed: No Hx Ulcer: No Hx Hiatal Hernia: No Difficulty Chewing/Swallowing: No Special diet followed at home: No Hx Unplanned Weight Loss of 20#: No HX Unplanned Weight Gain of 20#: No Neurological Hx Seizures: No HX Syncope/Blackout Spells/Unconsciousness: No Hx Transient Ischemic Attacks (TIA): No Hx Multiple Sclerosis: No Hx Parkinson's Disease: No Hx Head/Neck Injury: No Hx Headaches: No Hx Back Injury/Pain: Yes Recent Onset of Speech Difficulty: No Restless Legs: Yes Does patient have nerve stimulator: No Blood Disorder Hx Leukemia: No Bleeding Tendencies: No Hx Deep Vein Thrombosis: No Hx High Cholesterol: No Blood Transmitted Disease: No Hx Hepatitis: No Hx Cirrhosis: No Hx Anemia: Yes Hx Blood Disorders: No Reproduction : No Is Patient Lactating: No Hx Hysterectomy: No Hx Tubal Ligation: No Are You Post Menopause: Yes Genitourinary Hx Renal Disease: No Hx Dialysis: No Musculoskeletal Hx Arthritis: No Hx Rheumatoid Arthritis: No Hx Gout: No Recent Onset of an Orthopedic Problem: No Endocrine Hx Diabetes: No Thyroid Disease: No Hx Steroid Therapy: No Psycho/Social Hx Substance Use: No Hx Alcohol Use: No Hx Anxiety: No Hx Depression: No Mental Illness: No Hx Dementia: No Miscellaneous Hx Cancer: No Recent Exposure to Contagious Disease: No Hx of C-Diff: No Any Loose Teeth: No Allergies No Known Allergies Allergy (Verified 08/07/24 09:22) Discharge Is Pt Admitted From a Detention, or a Alf: No After D/C, Where Do you Plan to Go: Return Home From the PAT History Number of Risk Factors: 1 Vital Signs Vital Signs Vital Signs: 08/07/24 09:24 08/07/24 09:24 08/07/24 09:40 Temperature 97.7 F L 97.7 F L Temperature Source Temporal Pulse Rate 72 72 Respiratory Rate 14 14 Respiratory Pattern Normal Blood Pressure 151/88 H 151/88 H Blood Pressure Mean 109 Blood Pressure Source Monitor Blood Pressure Position Sitting Blood Pressure Location Left Arm Pulse Ox 100 100 Oxygen Delivery Method Room Air Room Air Weight Weight: 182 lb 15.739 oz Body Mass Index (BMI) 27.8 Physical Exam Const alert, oriented x3 and no apparent distress HEENT normocephalic and head/scalp atraumatic Resp normal respiratory effort Cardio regular rate GI soft to palpation and non-tender; Negative for non-distended Palpation: Negative for guarding Extremity no clubbing, cyanosis or edema Skin no rashes or lesions noted Neuro CN's II-XII intact bilaterally Psych mental status grossly normal Assessment & Plan Assessment/Plan (1) Colon cancer screening: Surgery Risks - Colonoscopy I discussed with the patient the risks of the procedure: Yes Risks Include but are not Limited To: Risks include but are not limited to: Bleeding, perforation requiring further surgery, inability to complete colonoscopy requiring barium enema.
--- NOTE | 2024-08-07 12:06 | OP.COLON_ITS ---
Patient Name: Annie Mae Procedure Date: 08/07/2024 11:13 AM Date of : 1950 Age: 73 Procedure: Colonoscopy Indications: Screening for colorectal malignant neoplasm Providers: Jazzy Cr MD Referring MD: Shila Dinh Medicines: Monitored Anesthesia Care Patient Profile: This is a 73 year old female. Last Colonoscopy: 10 years ago. Complications: No immediate complications. Procedure: Pre-Anesthesia Assessment: - Prior to the procedure, a History and Physical was performed, and patient medications and allergies were reviewed. The patient's tolerance of previous anesthesia was also reviewed. The risks and benefits of the procedure and the sedation options and risks were discussed with the patient. All questions were answered, and informed consent was obtained. Prior Anticoagulants: The patient has taken no anticoagulant or antiplatelet agents. ASA Grade Assessment: Per anesthesia. After reviewing the risks and benefits, the patient was deemed in satisfactory condition to undergo the procedure. After I obtained informed consent, the scope was passed under direct vision. Throughout the procedure, the patient's blood pressure, pulse, and oxygen saturations were monitored continuously. The Colonoscope was introduced through the anus and advanced to the cecum, identified by the ileocecal valve. The colonoscopy was performed with moderate difficulty due to a redundant colon and significant looping. The patient tolerated the procedure well. The quality of the bowel preparation was good. Scope In: 11:19:11 AM Scope Withdrawal Time 0 hours 9 minutes 0 seconds Scope Out: 11:59:20 AM Total Procedure Duration Time 0 hours 40 minutes 9 seconds Findings: Hemorrhoids were found on perianal exam. Non-bleeding internal hemorrhoids were found. The hemorrhoids were Grade I (internal hemorrhoids that do not prolapse). The entire examined colon appeared normal. unable to intubate cecum due to scope looping Impression: - Hemorrhoids found on perianal exam. - Non-bleeding internal hemorrhoids. - The entire examined colon is normal. - No specimens collected. Recommendation: - Discharge patient to home. - Resume previous diet. - Continue present medications. - Repeat colonoscopy in 7 years for screening purposes. Procedure Code(s): --- Professional --- G0121, PT, Colorectal cancer screening; colonoscopy on individual not meeting criteria for high risk Diagnosis Code(s): --- Professional --- Z12.11, Encounter for screening for malignant neoplasm of colon K64.0, First degree hemorrhoids CPT copyright 2021 [employer]. All rights reserved. The codes documented in this report are preliminary and upon remote inpatient coder review may be revised to meet current compliance requirements. MD Jazzy Robles MD 08/07/2024 12:06:10 PM This report has been signed electronically. Number of Addenda: 0 Note Initiated On: 08/07/2024 11:13 AM
--- NOTE | 2024-08-07 12:06 | OP.CCLET_ITS ---
08/07/2024 Shila Dinh [address] [facility] [address] [place] [address] Re : Colonoscopy procedure for Annie Mae Dear Dr. Dinh This procedure was performed on Wednesday, August 07, 2024. My impressions and recommendations are as follows: Impressions : - Hemorrhoids found on perianal exam. - Non-bleeding internal hemorrhoids. - The entire examined colon is normal. - No specimens collected. Recommendations : - Discharge patient to home. - Resume previous diet. - Continue present medications. - Repeat colonoscopy in 7 years for screening purposes. My findings are described in the full procedure note, which is enclosed. If I can be of further assistance, please feel free to contact me at Doctor phone number(s): , Work: . Sincerely, MD Jazzy Robles MD 08/07/2024 12:06:10 PM This report has been signed electronically.
--- NOTE | 2024-08-07 12:09 | PCM.POST.ANE ---
Anesthesia: Postop Eval I Current Vital Signs Temperature: 97.5 F Pulse Rate: 60 Blood Pressure: 140/81 Respiratory Rate: 20 Pulse Ox: 99 Oxygen Delivery Method: Room Air Assessment Airway patent: Yes Spontaneous unlabored respirations: Yes Mental status: Awake nausea: No Vomiting: No Anesthesia Complication: No Fluid Hydration Crystalloid volume administer (ml): 1,000 Total IV fluid infused: 1,000 Progress Note Anesthesia document: Postop Eval 1 completed: Yes
--- NOTE | 2024-08-07 13:06 | POSTOPAN2_ITS ---
Anesthesia Postop Eval I Sum Postop Eval Completion status Anesthesia document: Postop Eval 1 completed: Yes Anesthesia Postop Eval I Summary Anesthesia Postop Eval I Summary: Anesthesia Postop Eval I: Assessment Summary Airway patent Yes 08/07/24 12:10 [email or web address] Spontaneous unlabored Yes 08/07/24 12:10 [email or web address] [email or web address] respirations Mental status Awake 08/07/24 12:10 [email or web address] nausea No 08/07/24 12:10 [email or web address] [email or web address] Vomiting No 08/07/24 12:10 [email or web address] [email or web address] Anesthesia Postop Eval I: Fluid Summary Crystalloid volume administer 1,000 08/07/24 12:10 [email or web address] (ml) Colloids volume administered ( ml) Blood Product volume administered (ml) Total IV fluid infused 1,000 08/07/24 12:10 [employer] [email or web address] Anesthesia Postop Eval I: Summary Notes Anesthesia Complication No 08/07/24 12:10 [email or web address] Anesthesia Complication Comment: Post-operative progress note Anesthesia: Postop Eval II Evaluation Mental status: Awake Pain Level: 0 nausea: No Vomiting: No Complications Anesthesia Complication: No
--- NOTE | 2024-08-07 13:06 | PCM.POSTANE2 ---
Anesthesia Postop Eval I Sum Postop Eval Completion status Anesthesia document: Postop Eval 1 completed: Yes Anesthesia Postop Eval I Summary Anesthesia Postop Eval I Summary: Anesthesia Postop Eval I: Assessment Summary Airway patent Yes 08/07/24 12:10 [email or web address] Spontaneous unlabored Yes 08/07/24 12:10 [email or web address] respirations Mental status Awake 08/07/24 12:10 [email or web address] nausea No 08/07/24 12:10 [email or web address] Vomiting No 08/07/24 12:10 [email or web address] Anesthesia Postop Eval I: Fluid Summary Crystalloid volume administer 1,000 08/07/24 12:10 [email or web address] (ml) Colloids volume administered ( ml) Blood Product volume administered (ml) Total IV fluid infused 1,000 08/07/24 12:10 [email or web address] Anesthesia Postop Eval I: Summary Notes Anesthesia Complication No 08/07/24 12:10 [email or web address] Anesthesia Complication Comment: Post-operative progress note Anesthesia: Postop Eval II Evaluation Mental status: Awake Pain Level: 0 nausea: No Vomiting: No Complications Anesthesia Complication: No
== END 2024-08-07 13:00 | disposition home or self-care (01) ==
LOC: EN 09:04 → AC 09:06
PROVIDERS: PCP Internal Medicine; Referring Provider Internal Medicine; Visit Provider Surgery
PROC: 0DJD8ZZ Inspection of Lower Intestinal Tract, Via Natural or Artificial Opening Endoscopic (ICD-10-PCS; CPT 45378; principal; 2024-08-07 10:10)
DX: Z12.11 Encounter for screening for malignant neoplasm of colon (principal); K21.9 Gastro-esophageal reflux disease without esophagitis; E78.00 Pure hypercholesterolemia, unspecified; K64.0 First degree hemorrhoids; I10 Essential (primary) hypertension; Z79.899 Other long term (current) drug therapy
CPT/HCPCS: G0121; J2405

== ENCOUNTER → 2024-08-19 | Outpatient (CLI) | payer MEDICARE, OTHER, SELFPAY ==
[2021-11-18 08:41] VITALS: BMI 26.0
[2024-08-19 10:21] LABS: Bacteria 0 SEEN /hpf (None Seen); Mucous, Urine 0 SEEN /hpf (<or=2+); Red Blood Cells-Urine 0 SEEN /hpf (0-5); Squamous Epithelial Cells - UA 0 SEEN /hpf (5-10); White Blood Cells 0 SEEN /hpf (0-5)
[2024-08-19 11:19] LABS: Absolute Lymphocyte Count 1.15 X10^3/uL (0.83-4.51); Absolute Neutrophil Count 2.9 X10^3/uL (2.0-7.7); Hematocrit 35.4 % (37-47); Hemoglobin 11.9 g/dL (12.0-15.0); Lymphocyte # 1.15 X10^3/ul (0.83-4.51); Lymphocyte % 25.2 % (19-41); Mean Corp Hgb Conc 33.6 g/dL (32-36); Mean Corpuscular Hgb 28.1 pg (27.0-32.0); Mean Corpuscular Volume 83.7 fL (81-99); Mean Platelet Vol. 9.4 fl (6.2-12.0); Monocyte# 0.47 X10^3/uL; Monocyte% 10.3 % (0-10); NRBC Flagged by Analyzer 0 % (0-5); Neutrophil # 2.93 X10^3/uL (2.7-7.7); Neutrophil % 64.3 % (47-70); Platelet Count 385 K/mm3 (150-450); RBC Distribution Width CV 13.1 % (11.6-14.6); RBC Distribution Width SD 39.9 fl (35.1-43.9); Red Blood Count 4.23 M/mm3 (4.2-5.4); White Blood Count 4.6 K/mm3 (4.4-11.0)
[2024-08-19 11:20] LABS: Color, Urine Yellow (Yellow); Glucose, Dipstick Normal (Normal); Ketone-Dipstick Negative (Negative); Leukocyte Esterase-Dipstick Negative /ul (Negative); Nitrite-Dipstick Negative (Negative); Occult Blood-Urine Negative /ul (Negative); Protein-Dipstick Negative (Negative); Urine Bilirubin Dipstick Negative (Negative); Urine Clarity Clear (Clear); Urine Urobilinogen Normal (Normal)
[2024-08-19 11:33] LABS: Hemoglobin A1c 5.6 % (<=5.6)
[2024-08-19 11:41] LABS: Microalbumin,Random Urine < 12.0 mg/L (NO RANGE EST.)
[2024-08-19 11:55] LABS: Microalbumin:Creatinine Ratio UNABLE TO CALCULATE mg/g CRE
[2024-08-19 13:20] LABS: ALB/GLOB Ratio 1.9 RATIO (0.9-2.4); AST(SGOT) 19 U/L (<=31); Alanine Aminotransfer ALT/SGPT 21 U/L (<=34); Albumin, Serum 4.3 g/dL (3.4-4.8); Alkaline Phosphatase 82 U/L (35-104); Anion Gap 11 (5-15); BUN 16 mg/dL (4-19); BUN/Creat Ratio 22.2 RATIO (10-20); Calcium,Total 9.4 mg/dL (7.6-11.0); Chloride 101 mmol/L (98-108); Cholesterol 168 mg/dL (<=200); Creatinine, Serum 0.74 mg/dL (0.70-1.20); EST Glomerular Filtration Rate 86 (>60); Ferritin 36 ng/mL (22-378); Globulin 2.2 g/dL (2.2-4.2); Glucose 104 mg/dL (70-99); Hepatitis C Antibody Nonreactive (Nonreactive); High Density Lipoprotein 58 mg/dL; Low Density Lipoprotein Calc. 96 mg/dL; Potassium 4.2 mmol/L (3.3-5.1); Protein, Total 6.5 g/dL (5.9-8.4); Sodium Level 136 mmol/L (133-145); Total Bilirubin 0.24 mg/dL (0.00-1.30); Triglycerides 71 mg/dL; Very Low Density Lipoprotein 14 mg/dL (5-40); cholesterol:hdl ratio screen 2.89
[2024-08-19 14:00] LABS: Iron 112 ug/dL (50-170); Iron Binding Capacity,Total 373 ug/dL (250-450); Iron Binding Capacity,Unsat 261 ug/dL (228-428)
== END | disposition home or self-care (01) ==
LOC: LAB 10:09
PROVIDERS: PCP Internal Medicine; Referring Provider Internal Medicine; Visit Provider Internal Medicine
DX: D50.9 Iron deficiency anemia, unspecified (principal); R73.02 Impaired glucose tolerance (oral); I10 Essential (primary) hypertension; Z11.59 Encounter for screening for other viral diseases
CPT/HCPCS: 36415; 80053; 80061; 81001; 82043; 82570; 82728; 83036; 83540; 83550; 84443; 85025; 86803

== ENCOUNTER → 2024-10-06 | Outpatient (CLI) | payer MEDICARE, OTHER, SELFPAY ==
[2021-11-18 08:41] VITALS: BMI 26.0
--- NOTE | 2024-10-06 13:00 | US_ITS ---
PROCEDURE: THYROID 10/06/2024 REASON FOR EXAM: YEARLY TECHNIQUE: Thyroid ultrasound COMPARISON: Thyroid ultrasound 10/06/2023. FINDINGS: Right thyroid lobe measures 4.2 x 1.7 x 1.7 cm. Left thyroid lobe measures 4.3 x 1.4 x 1.7 cm. Isthmus thickness is0.2 cm. Thyroid Size: Normal Background Echotexture: Heterogeneous Thyroid Nodules: - Right: Within the inferior right thyroid gland, there is a 0.9 x 0.7 x 0.6 cm mixed cystic and solid nodule, which is isoechoic, wider than tall, smooth margins with peripheral calcification. TR-4, Moderately Suspicious. - Left: Within the mid left thyroid gland, there is a 1.5 x 1.2 x 1.1 cm mixed cystic and solid nodule, which is isoechoic, wider than tall, smooth margins without calcification. TR-2, Not Suspicious. US/Thyroid IMPRESSION: Unchanged right inferior gland nodule,TR-4. Continue yearly follow-up imaging. Reading Location: [id number]
== END | disposition home or self-care (01) ==
LOC: US 12:58
PROVIDERS: PCP Internal Medicine; Referring Provider Surgery; Visit Provider Surgery
DX: E04.1 Nontoxic single thyroid nodule (principal)
CPT/HCPCS: 76536

== ENCOUNTER 2024-10-09 13:29 | Outpatient (CLI) | payer MEDICARE, OTHER, SELFPAY ==
[2021-11-18 08:41] VITALS: BMI 26.0
[2024-10-09 13:30] VITALS: BP 131/67; PULSE 67; RESP 16; TEMP 36.2; O2SAT 98
[2024-10-09] MEDS: DENOSUMAB 60 MG/ML SC (13:39)
== END 2024-10-09 23:59 | disposition home or self-care (01) ==
LOC: MEDOUTP 13:29
PROVIDERS: PCP Internal Medicine; Referring Provider Internal Medicine; Visit Provider Internal Medicine
DX: M81.0 Age-related osteoporosis without current pathological fracture (principal)
CPT/HCPCS: 96372; J0897

== ENCOUNTER → 2024-12-26 | Outpatient (CLI) | payer MEDICARE, OTHER, SELFPAY ==
[2021-11-18 08:41] VITALS: BMI 26.0
--- NOTE | 2024-12-26 10:29 | BI_ITS ---
EXAM: SCRN MAMM (CAD)W/EARNEST BILAT DATE: 12/26/2024 CLINICAL HISTORY: F, Age 74 y/o , SCREENING No family history TECHNIQUE: Procedure Code: [id number] Modality: MG Procedure: SCRN MAMM (CAD)W/EARNEST BILAT COMPARISON: Prior exam(s) dated December 22, 2023.. FINDINGS: TISSUE DENSITY: The breasts are heterogeneously dense, which may obscure small masses. Bilateral Breast Mammographic Findings: No significant masses, calcifications or other abnormalities are identified. No suspicious masses, areas of developing architectural distortion, or suspicious calcifications. There has been no significant interval change. BI/SCRN MAMM (CAD)W/EARNEST BILAT IMPRESSION: Stable bilateral screening mammogram. OVERALL FINAL ASSESSMENT BI-RADS 1: NEGATIVE. RECOMMENDATION: Routine annual follow-up in 1 Year Additional Recommendation none A letter with findings and recommendations will be mailed to the patient. Reading Location: [place] [id number]
--- NOTE | 2024-12-26 10:31 | BD_ITS ---
PROCEDURE: DEXA BONE DENSITY STUDY 12/26/2024 REASON FOR EXAM: F, age 74 y/o . Postmenopausal. TECHNIQUE: Procedure Code: BDDBD Modality: DX Procedure: DEXA BONE DENSITY STUDY COMPARISON: March 28, 2020. FINDINGS: BMD and T-SCORES Lumbar spine: 0.866 g/cm2, T-score -2.1 Levels: L1 through L4 Change from prior: Loss of 0.1%. Left femoral neck: 0.632 g/cm2, T-score -2.0 Femoral neck comparison data not recommended for monitoring change. Left total hip: 0.783 g/cm2, T-score -1.3 Change from prior: Loss of 1.3%. Right femoral neck: 0.595 g/cm2, T-score -2.3 Femoral neck comparison data not recommended for monitoring change. Right total hip: 0.800 g/cm2, T-score -1.2 Change from prior: Loss of 2.2%. The World Health Organization has defined the following categories based on bone density: Normal bone density: T-score equal to or greater than -1.0 Osteopenia: T-score between -1.0 and -2.5 Osteoporosis: T-score equal to or less than -2.5 FRAX (or Comparable) Fracture Risk Assessment: 10 Year Probability of Fracture: Major Osteoporotic Fracture: 21% Hip Fracture: 4.8% (Note: FRAX is not to be reported in setting of normal range bone density, osteoporosis on DEXA, known history of osteoporosis, prior osteoporotic hip or vertebral fracture, or for any patient undergoing pharmacological treatment for bone loss.) The National Osteoporosis Foundation (NOF) recommends pharmacological treatment for patients with a FRAX 10-year risk of 3% or higher for a hip fracture, or 20% or higher for a major osteoporotic fracture, to prevent osteoporosis and reduce fracture risk. The patient does meet the pharmacological treatment recommendations for prevention of osteoporosis. BD/Dexa Bone Density Study IMPRESSION: OSTEOPENIA. Recommend follow-up as clinically warranted. Reading Location: [place] [id number]
== END | disposition home or self-care (01) ==
LOC: OPBD 10:27
PROVIDERS: PCP Internal Medicine; Referring Provider Internal Medicine; Visit Provider Internal Medicine
DX: Z12.31 Encounter for screening mammogram for malignant neoplasm of breast (principal); Z78.0 Asymptomatic menopausal state
CPT/HCPCS: 77063; 77067; 77080

== ENCOUNTER → 2025-02-19 | Outpatient (CLI) | payer MEDICARE, OTHER, SELFPAY ==
[2021-11-18 08:41] VITALS: BMI 26.0
[2025-02-19 16:02] LABS: Ferritin 27 ng/mL (22-378)
== END | disposition home or self-care (01) ==
LOC: MTLAB 13:33
PROVIDERS: PCP Internal Medicine; Referring Provider Internal Medicine; Visit Provider Internal Medicine
DX: D50.9 Iron deficiency anemia, unspecified (principal)
CPT/HCPCS: 36415; 82728